=== PATIENT | female | born 1950 | race Caucasian/White ===

== ENCOUNTER → 2017-10-12 08:55 | Outpatient (REF) | payer MEDICARE, MEDICAID, SELFPAY ==
[2017-10-12 13:55] LABS: Basophils % 0.3 % (0.1-2.0); Eosinophils # 0.3 K/mm3 (0.0-0.4); Eosinophils % 3.3 % (0.1-12.0); Hematocrit 33.7 % (37.0-47.0); Hemoglobin 10.9 g/dL (12.2-16.2); Lymphocytes # 2.8 K/mm3 (0.7-4.5); Lymphocytes % 33.1 K/mm3 (10-50); Mean Corpuscular HGB Conc 32.2 g/dL (31.8-35.4); Mean Corpuscular Hemoglobin 28.9 pg (27.0-31.2); Mean Corpuscular Volume 89.7 fl (81-99); Mean Platelet Volume 9.5 fl (7.4-10.4); Monocytes # 0.3 K/mm3 (0.1-1.0); Monocytes % 4.1 % (1.7-9.3); Neutrophils % 59.3 % (37.0-80.0); Platelet Count 178 K/mm3 (142-424); Red Blood Count 3.76 M/mm3 (4.20-5.40); Red Cell Distribution Width 13.3 % (11.5-17.5); White Blood Count 8.4 K/mm3 (4.8-10.8)
[2017-10-12 14:00] LABS: Hemoglobin A1C 7.8 % (0.0-7.0)
[2017-10-12 14:05] LABS: Alanine Aminotransferase 23 U/L (12-78); Albumin/Globulin Ratio 1.1 (1.1-1.8); Alkaline Phosphatase 133 U/L (46-116); Anion Gap 17.4 mEq/L (5-15); Aspartate Amino Transferase 33 U/L (15-37); Bilirubin,Total 0.2 mg/dL (0.2-1.0); Blood Urea Nitrogen 22 mg/dL (7-18); Calcium 8.7 mg/dL (8.5-10.1); Carbon Dioxide 25 mmol/L (21.0-32.0); Chloride 99 mmol/L (98-107); Chol/HDL Ratio 2.8 (1-3.5); Cholesterol 124 mg/dL (140-200); Creatinine,Serum 1.48 mg/dL (0.55-1.02); Estimated Glomerular Filt Rate 35 ml/min (>60); GFR (African American) 42 ML/MIN (>60); Globulin 2.7 gm/dl (1.3-3.2); Glucose 167 mg/dL (74-106); HDL Cholesterol 45 mg/dL (29-89); LDL Cholesterol 58 mg/dL (0-130); Potassium 4.4 mmoL/L (3.5-5.1); Sodium 137 mmol/L (136-145); Total Protein,Serum 5.7 gm/dL (6.4-8.2); Triglycerides 104 mg/dL (30-200); VLDL Cholesterol 21 mg/dL (0-40)
== END ==
LOC: LAB.CARL 08:55
PROVIDERS: Visit Provider Nurse Practitioner Family
DX: I10 Essential (primary) hypertension (principal); E78.5 Hyperlipidemia, unspecified; E11.9 Type 2 diabetes mellitus without complications; E03.9 Hypothyroidism, unspecified
CPT/HCPCS: 80053; 80061; 83036; 84443; 85025

== ENCOUNTER → 2017-11-29 10:26 | Outpatient (REF) | payer MEDICARE, MEDICAID, SELFPAY ==
[2017-11-29 10:30] LABS: Microscopic, Urine URINE MICROSCOPIC (MICROSCOPIC)
[2017-11-29 13:21] LABS: Basophils % 0.4 % (0.1-2.0); Eosinophils # 0.3 K/mm3 (0.0-0.4); Eosinophils % 2.7 % (0.1-12.0); Hematocrit 34.5 % (37.0-47.0); Hemoglobin 11.3 g/dL (12.2-16.2); Lymphocytes # 3.8 K/mm3 (0.7-4.5); Mean Corpuscular HGB Conc 32.7 g/dL (31.8-35.4); Mean Corpuscular Hemoglobin 29.3 pg (27.0-31.2); Mean Corpuscular Volume 89.7 fl (81-99); Mean Platelet Volume 9.1 fl (7.4-10.4); Monocytes # 0.5 K/mm3 (0.1-1.0); Monocytes % 4.6 % (1.7-9.3); Neutrophils # 5.5 K/mm3 (1.8-7.8); Neutrophils % 54.3 % (37.0-80.0); Platelet Count 218 K/mm3 (142-424); Red Blood Count 3.85 M/mm3 (4.20-5.40); Red Cell Distribution Width 13.1 % (11.5-17.5); White Blood Count 10.1 K/mm3 (4.8-10.8)
[2017-11-29 13:54] LABS: Albumin Level 3.1 gm/dL (3.4-5.0); Anion Gap 19.8 mEq/L (5-15); Blood Urea Nitrogen 24 mg/dL (7-18); Carbon Dioxide 22 mmol/L (21.0-32.0); Chloride 100 mmol/L (98-107); Creatinine,Serum 2.06 mg/dL (0.55-1.02); Estimated Glomerular Filt Rate 24 ml/min (>60); GFR (African American) 29 ML/MIN (>60); Glucose 125 mg/dL (74-106); Phosphorous 3.8 mg/dL (2.4-4.9); Potassium 4.8 mmoL/L (3.5-5.1); Sodium 137 mmol/L (136-145)
[2017-11-29 14:04] LABS: Appearance,Urine CLOUDY (Clear); Bilirubin,Urine Negative (Negative); Blood, Urine Negative (Negative); Color,Urine YELLOW (Yellow); Glucose,Urine (UA) Negative (Negative); Ketones,Urine Negative (Negative); Leukocyte Esterase,Urine Negative (Negative); Nitrate,Urine Negative (Negative); PH,Urine 5.5 (5.0-8.5); Protein,Urine Negative (Negative); Urobilinogen,Urine 0.2 EU/dl (0.2)
[2017-11-29 14:22] LABS: WBC,Urine Occasional #/hpf (0-3)
[2017-11-29 14:24] LABS: Bacteria,Urine 3+ /lpf
[2017-11-29 14:34] LABS: Creatinine,Urine Random 119 mg/dL (20-320)
== END ==
LOC: LAB.CARL 10:26
PROVIDERS: Visit Provider Internal Medicine Nephrology
DX: N18.9 Chronic kidney disease, unspecified (principal); R82.90 Unspecified abnormal findings in urine
CPT/HCPCS: 80069; 81001; 82570; 84155; 85025; 87086; 87088; 87186

== ENCOUNTER → 2017-12-27 09:33 | Outpatient (REF) | payer MEDICARE, MEDICAID, SELFPAY ==
[2017-12-27 13:19] LABS: Basophils % 0.2 % (0.1-2.0); Eosinophils # 0.2 K/mm3 (0.0-0.4); Eosinophils % 3.8 % (0.1-12.0); Hematocrit 33.8 % (37.0-47.0); Hemoglobin 10.6 g/dL (12.2-16.2); Lymphocytes # 1.6 K/mm3 (0.7-4.5); Lymphocytes % 29.7 K/mm3 (10-50); Mean Corpuscular HGB Conc 31.5 g/dL (31.8-35.4); Mean Corpuscular Hemoglobin 28.9 pg (27.0-31.2); Mean Corpuscular Volume 91.8 fl (81-99); Mean Platelet Volume 8.4 fl (7.4-10.4); Monocytes # 0.3 K/mm3 (0.1-1.0); Monocytes % 5.2 % (1.7-9.3); Neutrophils # 3.3 K/mm3 (1.8-7.8); Neutrophils % 61.2 % (37.0-80.0); Platelet Count 180 K/mm3 (142-424); Red Blood Count 3.68 M/mm3 (4.20-5.40); Red Cell Distribution Width 13.7 % (11.5-17.5); White Blood Count 5.4 K/mm3 (4.8-10.8)
[2017-12-27 13:33] LABS: Alanine Aminotransferase 16 U/L (12-78); Albumin Level 2.8 gm/dL (3.4-5.0); Albumin/Globulin Ratio 1.1 (1.1-1.8); Alkaline Phosphatase 91 U/L (46-116); Anion Gap 14.2 mEq/L (5-15); Aspartate Amino Transferase 21 U/L (15-37); Bilirubin,Total 0.2 mg/dL (0.2-1.0); Blood Urea Nitrogen 9 mg/dL (7-18); Calcium 8.5 mg/dL (8.5-10.1); Carbon Dioxide 25 mmol/L (21.0-32.0); Chloride 108 mmol/L (98-107); Creatinine,Serum 0.83 mg/dL (0.55-1.02); Estimated Glomerular Filt Rate 68 ml/min (>60); GFR (African American) 83 ML/MIN (>60); Globulin 2.6 gm/dl (1.3-3.2); Glucose 108 mg/dL (74-106); Potassium 4.2 mmoL/L (3.5-5.1); Sodium 143 mmol/L (136-145); Total Protein,Serum 5.4 gm/dL (6.4-8.2)
== END ==
LOC: LAB.CARL 09:33
PROVIDERS: Visit Provider Nurse Practitioner Family
DX: R94.4 Abnormal results of kidney function studies (principal)
CPT/HCPCS: 80053; 85025

== ENCOUNTER → 2017-12-28 12:00 | Outpatient (REF) | payer MEDICARE, MEDICAID, SELFPAY ==
[2017-12-29 12:02] LABS: Adenovirus F 40/41, stool Not Detected (NotDetected); Astrovirus Not Detected (NotDetected); Campylobacter Not Detected (NotDetected); Clostridium Difficile A/B, PCR Not Detected (NotDetected); Cryptosporidium Not Detected (NotDetected); Cyclospora Cayetanesis Not Detected (NotDetected); Entamoeba histolytica Not Detected (NotDetected); Enteroaggregative E coli Not Detected (NotDetected); Enteropathogenic E coli Not Detected (NotDetected); Enterotoxigenic E coli Not Detected (NotDetected); Giardia lamblia Not Detected (NotDetected); Norovirus Not Detected (NotDetected); Plesimonas Shigalloides, PCR Not Detected (NotDetected); Rotavirus A Not Detected (NotDetected); Salmonella, PCR Not Detected (NotDetected); Sapovirus Not Detected (NotDetected); Shiga-like toxin E coli Not Detected (NotDetected); Shigella Enterovasive E coli Not Detected (NotDetected); Vibrio Cholerae Not Detected (NotDetected); Vibrio, PCR Not Detected (NotDetected); Yersinia Entercolitica, PCR Not Detected (NotDetected)
[2017-12-29 15:37] LABS: Occult Blood,Stool Negative (Negative)
== END ==
LOC: LAB.CARL 12:00
PROVIDERS: Visit Provider Nurse Practitioner Family
DX: R19.7 Diarrhea, unspecified (principal)
CPT/HCPCS: 82272; 87045; 87177; 87507; G0328

== ENCOUNTER → 2018-01-31 09:20 | Outpatient (REF) | payer MEDICARE, MEDICAID, SELFPAY ==
[2018-01-31 09:30] LABS: Microscopic, Urine URINE MICROSCOPIC (MICROSCOPIC)
[2018-01-31 13:36] LABS: Alanine Aminotransferase 49 U/L (12-78); Albumin Level 3.3 gm/dL (3.4-5.0); Alkaline Phosphatase 157 U/L (46-116); Aspartate Amino Transferase 85 U/L (15-37); Bilirubin,Total 0.3 mg/dL (0.2-1.0); Blood Urea Nitrogen 16 mg/dL (7-18); Calcium 9.6 mg/dL (8.5-10.1); Carbon Dioxide 26 mmol/L (21.0-32.0); Chloride 103 mmol/L (98-107); Estimated Glomerular Filt Rate 41 ml/min (>60); GFR (African American) 49 ML/MIN (>60); Globulin 3.4 gm/dl (1.3-3.2); Glucose 171 mg/dL (74-106); Sodium 142 mmol/L (136-145); Total Protein,Serum 6.7 gm/dL (6.4-8.2)
[2018-01-31 13:38] LABS: Creatine Kinase 19 U/L (26-192); Phosphorous 4.8 mg/dL (2.4-4.9)
[2018-01-31 13:40] LABS: Appearance,Urine CLEAR (Clear); Bilirubin,Urine Negative (Negative); Blood, Urine Negative (Negative); Color,Urine YELLOW (Yellow); Glucose,Urine (UA) Negative (Negative); Ketones,Urine Negative (Negative); Leukocyte Esterase,Urine TRACE (Negative); Nitrate,Urine POSITIVE (Negative); PH,Urine 5.5 (5.0-8.5); Protein,Urine Negative (Negative); Specific Gravity, Urine >= 1.030 (1.005-1.030); Urobilinogen,Urine 0.2 EU/dl (0.2)
[2018-01-31 13:44] LABS: Hemoglobin A1C 6.5 % (0.0-7.0)
[2018-01-31 13:59] LABS: RBC,Urine Occasional #/hpf (0-3)
[2018-01-31 14:00] LABS: Bacteria,Urine 4+ /lpf
[2018-01-31 15:33] LABS: Creatinine,Urine Random 228 mg/dL (20-320)
[2018-02-02 12:54] LABS: Antinuclear Antibodies, IFA Negative (.)
== END ==
LOC: LAB 09:20
PROVIDERS: Nurse Practitioner Family; Visit Provider Internal Medicine Nephrology
DX: N17.9 Acute kidney failure, unspecified (principal)
CPT/HCPCS: 80053; 81001; 82550; 82570; 83036; 84100; 84155; 86038; 87086; 87088; 87186; 87205

== ENCOUNTER → 2018-06-27 08:58 | Outpatient (REF) | payer MEDICARE, MEDICAID, SELFPAY ==
[2018-06-27 09:07] LABS: Microscopic, Urine URINE MICROSCOPIC (MICROSCOPIC)
[2018-06-27 14:06] LABS: Appearance,Urine CLEAR (Clear); Bilirubin,Urine Negative (Negative); Blood, Urine Negative (Negative); Color,Urine YELLOW (Yellow); Glucose,Urine (UA) Negative (Negative); Ketones,Urine Negative (Negative); Leukocyte Esterase,Urine Negative (Negative); Nitrate,Urine Negative (Negative); Protein,Urine Negative (Negative); Specific Gravity, Urine <= 1.005 (1.005-1.030); Urobilinogen,Urine 0.2 EU/dl (0.2)
[2018-06-27 14:11] LABS: Albumin Level 3.2 gm/dL (3.4-5.0); Anion Gap 15.3 mEq/L (5-15); Blood Urea Nitrogen 12 mg/dL (7-18); Calcium 8.9 mg/dL (8.5-10.1); Carbon Dioxide 27 mmol/L (21.0-32.0); Chloride 105 mmol/L (98-107); Creatinine,Serum 1.17 mg/dL (0.55-1.02); Estimated Glomerular Filt Rate 46 ml/min (>60); GFR (African American) 55 ML/MIN (>60); Glucose 151 mg/dL (74-106); Phosphorous 4.4 mg/dL (2.4-4.9); Potassium 4.3 mmoL/L (3.5-5.1); Sodium 143 mmol/L (136-145)
[2018-06-27 14:14] LABS: Basophils % 0.2 % (0.1-2.0); Eosinophils # 0.1 K/mm3 (0.0-0.4); Eosinophils % 1.7 % (0.1-12.0); Hematocrit 37.7 % (37.0-47.0); Hemoglobin 11.9 g/dL (12.2-16.2); Lymphocytes # 2.6 K/mm3 (0.7-4.5); Lymphocytes % 41.7 K/mm3 (10-50); Mean Corpuscular HGB Conc 31.7 g/dL (31.8-35.4); Mean Corpuscular Hemoglobin 28.7 pg (27.0-31.2); Mean Corpuscular Volume 90.7 fl (81-99); Mean Platelet Volume 8.8 fl (7.4-10.4); Monocytes # 0.3 K/mm3 (0.1-1.0); Monocytes % 4.9 % (1.7-9.3); Neutrophils # 3.2 K/mm3 (1.8-7.8); Neutrophils % 51.6 % (37.0-80.0); Platelet Count 171 K/mm3 (142-424); Red Blood Count 4.15 M/mm3 (4.20-5.40); Red Cell Distribution Width 13.7 % (11.5-17.5); White Blood Count 6.2 K/mm3 (4.8-10.8)
[2018-06-27 14:26] LABS: Creatinine,Urine Random 45 mg/dL (20-320)
[2018-06-27 14:32] LABS: Total Protein,Urine Random < 6.0 mg/dL (0.0-11.9)
[2018-06-27 16:41] LABS: Bacteria,Urine Trace /lpf
[2018-06-29 18:41] LABS: Parathyroid Hormone Intact 36 pg/mL (15-65); Vitamin D 25 Hydroxy 62.2 ng/mL (30.0-100.0)
== END ==
LOC: LAB.CARL 08:58
PROVIDERS: Visit Provider Family Medicine
DX: N17.9 Acute kidney failure, unspecified (principal)
CPT/HCPCS: 80069; 81001; 82570; 82652; 83970; 84155; 85025

== ENCOUNTER → 2018-08-16 08:53 | Outpatient (CLI) | payer MEDICARE, MEDICAID, SELFPAY ==
--- NOTE | 2018-08-16 09:03 | XR_ITS ---
XR knee RT 4V HISTORY: Right knee pain ITS.REASON: 4 views weightbearing ORDERING PHYSICIAN: Zi Lund MD PATIENT AGE: 68 years COMPARISON: 03/04/2017 FINDINGS: There are severe osteoarthritic changes of the medial compartment with moderate osteoarthritic changes of the patellofemoral joint. Osteophytes are present at the patellofemoral joint and at the intercondylar region. A calcific density is present along the medial aspect of the tibia on the sunrise view measuring 6 mm and may be due to a loose body. There is a calcification at the intercondylar region of the distal femur measuring 9 mm and could be due to a loose body or an osteophyte. No other significant anomalies are evident. IMPRESSION: Severe osteoarthritis of the medial compartment. This has progressed compared to the previous exam. Osteophytes versus loose bodies at the intercondylar region and along the medial aspect of the patella
== END ==
PROVIDERS: PCP Nurse Practitioner Family; Visit Provider Orthopaedic Surgery
DX: M17.11 Unilateral primary osteoarthritis, right knee (principal)
CPT/HCPCS: 73564

== ENCOUNTER → 2018-11-12 13:15 | Outpatient (CLI) | payer MEDICARE, MEDICAID, SELFPAY | PROVIDERS: PCP Nurse Practitioner Family; Visit Provider Urology | DX: R42 Dizziness and giddiness (principal) | CPT/HCPCS: 93270 ==

== ENCOUNTER → 2018-11-21 10:00 | Outpatient (CLI) | payer MEDICARE, MEDICAID, SELFPAY ==
--- NOTE | 2018-11-21 10:03 | CI_ITS ---
Cerebrovascular Exam Indications: 780.4 Dizziness and giddiness. IMPRESSIONS 1. The bilateral vertebral arteries are patent with normal antegrade flow. 2. Study suggests less than 20% stenosis involving the right internal carotid artery and bxy24-78% stenosis left internal carotid artery. 3. Tortuous carotid arteries seen on left ICA History: Risk factors: Hypertension. Diabetes mellitus. Hyperlipidemia. Carotid duplex study. Complete study and Doppler flow study including spectral analysis, color and nance scale imaging. Location: Vascular laboratory. Patient status: Outpatient. Tables: Arterial flow: + +--------+--------+ Location V sys V ed + +--------+--------+ Right CCA - proximal 64.4cm/s 15.7cm/s + +--------+--------+ Right CCA - distal 50.3cm/s 16.5cm/s + +--------+--------+ Right ECA 105cm/s -------- + +--------+--------+ Right ICA - proximal 50.3cm/s 18.9cm/s + +--------+--------+ Right ICA - mid 43.2cm/s 19.6cm/s + +--------+--------+ Right ICA - distal 55cm/s 18.9cm/s + +--------+--------+ Right vertebral 35.4cm/s -------- + +--------+--------+ Left CCA - proximal 64.4cm/s 14.1cm/s + +--------+--------+ Left CCA - distal 47.9cm/s 11cm/s + +--------+--------+ Left ECA 87.2cm/s -------- + +--------+--------+ Left ICA - proximal 44cm/s 15.7cm/s + +--------+--------+ Left ICA - mid 44cm/s 18.1cm/s + +--------+--------+ Left ICA - distal 141cm/s 33.8cm/s + +--------+--------+ Left vertebral 40.1cm/s -------- + +--------+--------+ Velocity ratios: + + + + + + Right, V sys Right, V ed Left, V sys Left, V ed + + + + + + Max ICA/dist CCA 1.09 1.19 2.94 3.07 + + + + + + (Report amended ) Electronically signed by: Shad Gallagher [id number]
== END ==
PROVIDERS: PCP Nurse Practitioner Family; Visit Provider Urology
DX: R42 Dizziness and giddiness (principal)
CPT/HCPCS: 93880

== ENCOUNTER → 2018-11-27 11:52 | Outpatient (CLI) | payer MEDICARE, MEDICAID, SELFPAY ==
[2018-11-27 11:57] LABS: Microscopic, Urine URINE MICROSCOPIC (MICROSCOPIC)
[2018-11-27 14:09] LABS: Appearance,Urine CLEAR (Clear); Bilirubin,Urine Negative (Negative); Blood, Urine Negative (Negative); Color,Urine YELLOW (Yellow); Glucose,Urine (UA) Negative (Negative); Ketones,Urine Negative (Negative); Leukocyte Esterase,Urine Negative (Negative); Nitrate,Urine Negative (Negative); Protein,Urine Negative (Negative); Specific Gravity, Urine <= 1.005 (1.005-1.030); Urobilinogen,Urine 0.2 EU/dl (0.2)
[2018-11-27 14:18] LABS: Bacteria,Urine Trace /lpf; WBC,Urine Occasional #/hpf (0-3)
== END ==
PROVIDERS: PCP Nurse Practitioner Family; Visit Provider Nurse Practitioner Family
DX: R30.0 Dysuria (principal)
CPT/HCPCS: 81001; 87086

== ENCOUNTER → 2018-12-04 11:54 | Outpatient (CLI) | payer MEDICARE, MEDICAID, SELFPAY ==
[2018-12-04 12:07] LABS: Microscopic, Urine URINE MICROSCOPIC (MICROSCOPIC)
[2018-12-04 14:12] LABS: Basophils # 0.1 K/mm3 (0-0.2); Basophils % 0.6 % (0.1-2.0); Eosinophils # 0.2 K/mm3 (0.0-0.4); Eosinophils % 1.6 % (0.1-12.0); Hematocrit 40.6 % (37.0-47.0); Hemoglobin 13.4 g/dL (12.2-16.2); Lymphocytes # 3.6 K/mm3 (0.7-4.5); Lymphocytes % 39.2 % (10-50); Mean Corpuscular Hemoglobin 29.7 pg (27.0-31.2); Mean Platelet Volume 8.6 fl (7.4-10.4); Monocytes # 0.4 K/mm3 (0.1-1.0); Monocytes % 4.7 % (1.7-9.3); Neutrophils % 53.9 % (37.0-80.0); Platelet Count 223 K/mm3 (142-424); Red Blood Count 4.51 M/mm3 (4.20-5.40); Red Cell Distribution Width 13.4 % (11.5-17.5); White Blood Count 9.2 K/mm3 (4.8-10.8)
[2018-12-04 14:30] LABS: Alanine Aminotransferase 36 U/L (12-78); Albumin Level 3.5 gm/dL (3.4-5.0); Albumin/Globulin Ratio 0.9 (1.1-1.8); Alkaline Phosphatase 124 U/L (46-116); Anion Gap 13.9 mEq/L (5-15); Aspartate Amino Transferase 31 U/L (15-37); Bilirubin,Total 0.5 mg/dL (0.2-1.0); Blood Urea Nitrogen 17 mg/dL (7-18); Calcium 9.4 mg/dL (8.5-10.1); Carbon Dioxide 28 mmol/L (21.0-32.0); Chloride 102 mmol/L (98-107); Chol/HDL Ratio 3.1 (1-3.5); Cholesterol 175 mg/dL (140-200); Creatinine,Serum 1.35 mg/dL (0.55-1.02); Estimated Glomerular Filt Rate 39 ml/min (>60); GFR (African American) 47 ML/MIN (>60); Globulin 3.7 gm/dl (1.3-3.2); Glucose 131 mg/dL (74-106); HDL Cholesterol 57 mg/dL (29-89); LDL Cholesterol 100 mg/dL (0-130); Potassium 4.9 mmoL/L (3.5-5.1); Sodium 139 mmol/L (136-145); Total Protein,Serum 7.2 gm/dL (6.4-8.2); Triglycerides 92 mg/dL (30-200); VLDL Cholesterol 18 mg/dL (0-40)
[2018-12-04 14:42] LABS: Appearance,Urine SL CLOUDY (Clear); Bilirubin,Urine Negative (Negative); Blood, Urine Negative (Negative); Color,Urine YELLOW (Yellow); Glucose,Urine (UA) Negative (Negative); Ketones,Urine Negative (Negative); Leukocyte Esterase,Urine Negative (Negative); Nitrate,Urine Negative (Negative); Protein,Urine Negative (Negative); Urobilinogen,Urine 0.2 EU/dl (0.2)
[2018-12-04 14:44] LABS: Ferritin 100 ng/mL (8-388)
[2018-12-04 14:59] LABS: WBC,Urine Occasional #/hpf (0-3)
[2018-12-04 15:00] LABS: Bacteria,Urine Trace /lpf
[2018-12-04 15:28] LABS: Hemoglobin A1C 7.7 % (0.0-7.0)
[2018-12-05 08:11] LABS: Vitamin D 25 Hydroxy 62.4 ng/mL (30.0-100.0)
[2018-12-05 08:26] LABS: Iron 88 ug/dL (27-139); UIBC 260 ug/dL (118-369)
[2018-12-05 12:52] LABS: Iron Saturation 25 % (15-55)
[2018-12-05 15:14] LABS: Albumin 3.6 g/dL (2.9-4.4); Alpha-1-Globulin 0.3 g/dL (0.0-0.4); Alpha-2-Globulin 0.8 g/dL (0.4-1.0); Gamma Globulin 0.9 g/dL (0.4-1.8); Protein, Total 6.9 g/dL (6.0-8.5)
[2018-12-06 16:19] LABS: Immunoglobulin A, Qn 454 mg/dL (87-352); Immunoglobulin G, Qn 793 mg/dL (700-1600)
[2018-12-07 12:33] LABS: Immunoglobulin M, Qn 74 mg/dL (26-217)
[2018-12-07 16:19] LABS: Alpha-1-Globulin, U 11.5 % (.); Alpha-2-Globulin, U 17.2 % (.); Beta Globulin, U 29.1 % (.); Gamma Globulin, U 22.2 % (.); M-Spike, % Not Observed % (Not Observed); Protein,Total,Urine 6.9 mg/dL (Not Estab.)
== END ==
PROVIDERS: PCP Nurse Practitioner Family; Visit Provider Nurse Practitioner Family
DX: E08.41 Diabetes mellitus due to underlying condition with diabetic mononeuropathy; N18.3 Chronic kidney disease, stage 3 (moderate); E55.9 Vitamin D deficiency, unspecified; I12.9 Hypertensive chronic kidney disease with stage 1 through stage 4 chronic kidney disease, or unspecified chronic kidney disease
CPT/HCPCS: 36415; 80053; 80061; 81001; 82652; 82728; 82784; 83036; 83540; 83550; 84155; 84156; 84165; 84166; 85025; 86334; 86335

== ENCOUNTER 2019-02-04 20:07 | Observation (INO) ==
[2019-02-04 20:22] LABS: Basophils % 0.3 % (0.1-2.0); Eosinophils # 0.1 K/mm3 (0.0-0.4); Eosinophils % 1.9 % (0.1-12.0); Hematocrit 38.9 % (37.0-47.0); Hemoglobin 12.9 g/dL (12.2-16.2); Lymphocytes # 2.9 K/mm3 (0.7-4.5); Lymphocytes % 37.9 % (10-50); Mean Corpuscular HGB Conc 33.3 g/dL (31.8-35.4); Mean Corpuscular Hemoglobin 29.6 pg (27.0-31.2); Mean Corpuscular Volume 88.8 fl (81-99); Mean Platelet Volume 8.6 fl (7.4-10.4); Monocytes # 0.3 K/mm3 (0.1-1.0); Monocytes % 4.1 % (1.7-9.3); Neutrophils # 4.3 K/mm3 (1.8-7.8); Neutrophils % 55.8 % (37.0-80.0); Platelet Count 186 K/mm3 (142-424); Red Blood Count 4.38 M/mm3 (4.20-5.40); Red Cell Distribution Width 13.3 % (11.5-17.5); White Blood Count 7.7 K/mm3 (4.8-10.8)
[2019-02-04 20:40] LABS: Anion Gap 12.9 mEq/L (5-15); Blood Urea Nitrogen 14 mg/dL (7-18); Calcium 9.1 mg/dL (8.5-10.1); Carbon Dioxide 25 mmol/L (21.0-32.0); Chloride 98 mmol/L (98-107); Glucose 344 mg/dL (74-106); Potassium 3.9 mmoL/L (3.5-5.1); Sodium 132 mmol/L (136-145)
--- NOTE | 2019-02-04 21:17 | Emergency Department Note ---
ED Disposition Clinical Impression: Tobacco abuse, Obesity (BMI 30-39.9), Renal insufficiency, Hyponatremia Chest pain Qualifiers: Chest pain type: precordial pain Qualified Code(s): R07.2 - Precordial pain Diabetes mellitus with hyperglycemia Qualifiers: Diabetes mellitus type: type 1 Qualified Code(s): E10.65 - Type 1 diabetes mellitus with hyperglycemia COPD (chronic obstructive pulmonary disease) Qualifiers: COPD type: unspecified COPD Qualified Code(s): J44.9 - Chronic obstructive pulmonary disease, unspecified Disposition: Admitted as Observation Condition on Discharge: Good Referrals: Tonya Freeman APRN [Primary Care Provider] - - Critical Care Critical Care Time: No Attestation: On 02/04/19, the high probability of a clinically significant, sudden or life threatening deterioration of the following system(s) required my full and direct attention, intervention and personal management. The time I documented below is in addition to time spent performing reported procedures but includes the following listed in this critical care notation. Medical Decision Making - Medical Records Medical records reviewed: Yes: I reviewed the patient's medical records. - Mervin Inquiry Pt receiving controlled substance: No Vital Signs: 02/04/19 20:10 Temperature 98.0 F Temperature Source Oral Pulse Rate [Right] 72 Respiratory Rate 16 Blood Pressure [Right Arm] 151/82 H Blood Pressure Mean [Right Arm] 105 02 Sat by Pulse Oximetry 96 Oxygen Delivery Method Room Air - Lab Data Lab results reviewed: Yes: I reviewed the patient's lab results. Lab Results 02/04/19 20:05: WBC 7.7, RBC 4.38, Hgb 12.9, Hct 38.9, MCV 88.8, MCH 29.6, MCHC 33.3, RDW 13.3, Plt Count 186, MPV 8.6, Neut % (Auto) 55.8, Lymph % (Auto) 37.9, [place] % (Auto) 4.1, Eos % (Auto) 1.9, Baso % (Auto) 0.3, Neut # (Auto) 4.3, Lymph # (Auto) 2.9, [place] # (Auto) 0.3, Eos # (Auto) 0.1, Baso # (Auto) 0.0 02/04/19 20:05: Sodium 132 L, Potassium 3.9, Chloride 98, Carbon Dioxide 25, Anion Gap 12.9, BUN 14, Creatinine 1.31 H, Estimated Creat Clear 65, Estimated GFR 40 L, Est GFR ( Amer) 49 L, Glucose 344 H, Calcium 9.1, Troponin I < 0.02 Result diagrams: 02/04/19 20:05 02/04/19 20:05 Orders (Tests/Meds): ORDERS Category Date Time Status CT abdomen pelvis wo con Stat Cat Scan 02/04/19 20:26 Taken Chest XR 2 view (NOT portable) [XR chest 2V] Stat Exams 02/04/19 20:09 Taken - Radiology Data #1 Image(s): Chest Image Reviewed: Yes I reviewed the patient's radiology image Preliminary Findings: Normal/NAD - CT Data CT Scan: Abdomen, Pelvis Time Received: 21:[address] Reviewed: Yes: I have viewed the radiologist's interpretation Preliminary Findings: Normal/NAD - ECG Data Tracing #1 Normal Sinus Rhythm: Yes Ischemic changes: non-specific ST-T wave changes - Physician Consults Physician Consulted: graciela Reason -: Admission Chest Pain HPI - General Chief Complaint: Chest Pain Stated Complaint: chest pain Time Seen by Provider: 02/04/19 20:20 Mode of Arrival: EMS Source of Information: Patient, EMS, Medical Record Limitations: No Limitations Description of Symptoms (Recalled from ER Triage Doc. by RN): Pt states she had chest pain about 9 AM today lasing about 30 minutes and now feels week - History of Present Illness HPI narrative: chest pain episode this am which was new and lasted 30 minute and occ pain after this - she had cath no stents in 2016 complaint: chest pain indicative of cardiac Onset (ago): hour(s) Duration: now resolved Activity at onset: during rest Pain location: left chest Severity: severe Quality: tightness Risk Factors for CAD: Hypertension, Family Hx of CAD, Diabetes, Smoking Treatments prior to or on arrival for Cardiac Chest Pain: none Contraindication for Aspirin: Adverse reaction to drug - NICOLAS Score for Non-Stemi Age of Patient: 60-69 years old Heart Rate: 70-89 bpm Systolic Blood Pressure: 140-159 mmHg Serum Creatinine: 1.20-1.59 mg/dl CHF Kill[place] Class: I-No CHF Other Risk Factors: None Non-Stemi Risk Score: 101 - Related Data Prior Cardiac Testing/Procedures: Echocardiogram, Cardiac Angiogram On Oral Contraceptives: No Home Medications Medication Instructions Recorded Confirmed cetirizine 10 mg tablet 10 mg PO DAILY tab 01/01/18 02/04/19 fluticasone propionate 50 2 spray INTRANASAL DAILY g 01/01/18 02/04/19 mcg/actuation nasal spray,suspension gabapentin 600 mg tablet 1,200 mg PO BID tab 01/01/18 02/04/19 lisinopril 20 mg tablet 20 mg PO DAILY tab 01/01/18 02/04/19 metoclopramide 5 mg tablet 5 mg PO QID 01/01/18 02/04/19 montelukast 10 mg tablet 10 mg PO QHS 01/01/18 02/04/19 roflumilast 500 mcg tablet 500 mcg PO DAILY tab 01/01/18 02/04/19 ropinirole 4 mg tablet 4 mg PO DAILY tab 01/01/18 02/04/19 cholecalciferol (vitamin D3) 50,000 unit PO .every other week 01/02/18 02/04/19 50,000 unit tablet tab furosemide 20 mg tablet 20 mg PO DAILY tab 01/02/18 02/04/19 oxybutynin chloride ER 10 mg 10 mg PO DAILY tab 01/02/18 02/04/19 tablet,extended release 24 hr fluticasone furoate 100 1 inh INHALATION DAILY 11/12/18 02/04/19 mcg-vilanterol 25 mcg/dose inhalation powder insulin glargine (U- 100) 100 25 unit SQ HS ml 11/12/18 02/04/19 unit/mL subcutaneous solution metoprolol tartrate 25 mg tablet 25 mg PO BID tab 11/12/18 02/04/19 nadolol 120 mg tablet 120 mg PO DAILY 11/12/18 02/04/19 ranitidine 150 mg tablet 150 mg PO DAILY 11/12/18 02/04/19 Insulin NPH Hum/Reg Insulin Hm 15 unit SQ QID 02/04/19 02/04/19 [Novolin 70-30 100 Unit/ml Vial] Allergies Allergy/AdvReac Type Severity Reaction Status Date / Time acetaminophen [From Tylox] Allergy Verified 02/04/19 20:18 sitagliptin [From Januvia] Allergy Verified 02/04/19 20:18 oxycodone [From PERCOCET] AdvReac Unknown Verified 02/04/19 20:18 [facility] History - Hepatitis A Screen Drug use history?: No High risk sexual behaviors?: No History of sexually transmitted infection?: No Currently employed?: No Childcare worker?: No Do you have indoor plumbing?: Yes Do you have electricity?: Yes Attestation statement:: This patient has been screened for Hepatitis A risk factors. I have reviewed the patient's past medical history: Yes Medical History: Reports:: Asthma, Cancer, Chronic Obstructive Pulmonary Disease (COPD), Depression, Diabetes Mellitus Type 2, Hypertension, Palpitations, Renal Disease, Urinary Tract Infection Denies:: Internal Pacemaker, MRSA Other Medical History: Reports: Arthritis, Liver Disease, Other Comment: BUDDY Other Surgeries: Yes: No Previous Surgery. No: Pacemaker Comment: hysterectomy, CTR, cholecystectomy, bilateral mastectomy - Social History Smoking Status: Current every day smoker Tobacco Type: cigarettes # Packs/Day (cigarettes): 2 Alcohol Intake: never Alcohol Intake Frequency:: other Substance Use Type: denies use Occupational Status: unemployed, disabled - Psychiatric History Expresses thoughts of harming self/others: None Suicide Plan Description: No Plan Pschychiatric History:: Reports:: Depression Family Hx:: No significant family history ROS Obtained: Yes All systems reviewed & no additional complaints - Constitutional Constitutional: Denies fever(s) - Eyes Eyes: Denies change in vision - ENT Ears, Nose, Mouth, and Throat: Denies sore throat - Cardiovascular Cardiovascular: Reports chest pain, Reports dyspnea - Respiratory Respiratory: No cough - Gastrointestinal Gastrointestingal: Denies: abdominal pain - Genitourinary Female Genitourinary: Denies hematuria - Musculoskeletal Musculoskeletal: Denies joint swelling - Integumentary/Breasts Skin/Breast: Denies rash - Neurologic Neurologic: Denies seizure-like activity Physical Exam - General General appearance: alert, obese - Head Head exam: normocephalic - Eye Eye exam: Present: PERRL, EOMI. Absent: scleral icterus - ENT ENT exam: Present: mucous membranes dry - Neck Neck exam: Present: trachea midline - Respiratory Respiratory exam: Present: normal lung sounds bilaterally. Absent: respiratory distress - Cardiovascular Cardiovascular exam: Present: regular rate, systolic murmur, +S4 - Abdominal Exam Abdominal exam: Present: soft - Extremities Exam Extremities exam: Present: full ROM. Absent: calf tenderness - Neurological Exam Neurological exam: Present: alert, oriented X3, CN II-XII intact - Psychiatric Psychiatric exam: Present: normal affect - Skin Skin exam: Absent: rash
[2019-02-05 04:35] LABS: Basophils % 0.3 % (0.1-2.0); Eosinophils # 0.2 K/mm3 (0.0-0.4); Eosinophils % 1.6 % (0.1-12.0); Hematocrit 36.1 % (37.0-47.0); Hemoglobin 12.1 g/dL (12.2-16.2); Lymphocytes % 37.9 % (10-50); Mean Corpuscular HGB Conc 33.4 g/dL (31.8-35.4); Mean Corpuscular Hemoglobin 29.2 pg (27.0-31.2); Mean Corpuscular Volume 87.4 fl (81-99); Mean Platelet Volume 8.7 fl (7.4-10.4); Monocytes # 0.6 K/mm3 (0.1-1.0); Monocytes % 5.2 % (1.7-9.3); Neutrophils # 5.8 K/mm3 (1.8-7.8); Neutrophils % 54.9 % (37.0-80.0); Platelet Count 167 K/mm3 (142-424); Red Blood Count 4.13 M/mm3 (4.20-5.40); Red Cell Distribution Width 13.5 % (11.5-17.5); White Blood Count 10.6 K/mm3 (4.8-10.8)
[2019-02-05 04:42] LABS: Anion Gap 13.1 mEq/L (5-15); Calcium 9.4 mg/dL (8.5-10.1); Chol/HDL Ratio 3.4 (1-3.5); Potassium 4.1 mmoL/L (3.5-5.1)
--- NOTE | 2019-02-05 07:32 | History & Physical Report ---
*Admission Date: 02/04/19 *Chief complaint: Chest pain *History of present illness: 68-year-old female with history of diabetes, cigarette use since the age of 13, family history of stroke presented to the emergency department yesterday evening after experiencing a 20-minute episode of squeezing chest pain on the morning of admission. After 20 minutes patient's chest pain resolved. However the rest of the day she did not feel well. She admits to lightheadedness upon standing and a weak feeling in the shoulders whenever she would ambulate. Ultimately she presented to the emergency department. In the emergency department she was evaluated. First troponin was negative. Due to significant risk factors she was admitted for rule out of an MD and cardiology consultation. Patient has had previous cardiac catheterization by Dr. Bailon in 2016 [facility] History I have reviewed the patient's past medical history: Yes Medical History: Reports:: Asthma, Cancer, Chronic Obstructive Pulmonary Disease (COPD), Depression, Diabetes Mellitus Type 2, Hypertension, Palpitations, Renal Disease, Urinary Tract Infection Denies:: Internal Pacemaker, MRSA *Have you ever received a pneumonia vaccine?: Yes *Have you received a flu vaccine this season?: No Other Medical History: Reports: Arthritis, Liver Disease, Other Laterality Cases: Bilateral: Mastectomy Other Surgeries: Yes: No Previous Surgery, Cholecystectomy. No: Pacemaker Amputation: No Fractures: No - *Social History Educational Level: Attended College Smoking Status: Current every day smoker Tobacco Type: cigarettes # Packs/Day (cigarettes): 2 Alcohol Intake: never Alcohol Intake Frequency:: other Substance Use Type: denies use *Occupational Status:: unemployed, disabled *Travel in the last 8 weeks: None - Psychiatric History Expresses thoughts of harming self/others: None Suicide Plan Description: No Plan Pschychiatric History:: Reports:: Depression Family Hx:: No significant family history Review of Systems - Review of Systems Review of systems:: pertinent systems reviewed and negative unless documented below - *Cardiovascular Denies excessive sweating, Denies shortness of breath, Denies shortness of breath with activity - *Respiratory Reports wheezing, Denies chest congestion, Denies cough - *Gastrointestinal Denies nausea, Denies vomiting - *Neurologic Denies seizure-like activity Meds Home Medications Medication Instructions Recorded Confirmed Type cetirizine 10 mg tablet 10 mg PO DAILY tab 01/01/18 02/04/19 History fluticasone propionate 50 2 spray INTRANASAL DAILY g 01/01/18 02/04/19 History mcg/actuation nasal spray,suspension gabapentin 600 mg tablet 1,200 mg PO BID tab 01/01/18 02/04/19 History lisinopril 20 mg tablet 20 mg PO DAILY tab 01/01/18 02/04/19 History metoclopramide 5 mg tablet 5 mg PO QID 01/01/18 02/04/19 History montelukast 10 mg tablet 10 mg PO QHS 01/01/18 02/04/19 History roflumilast 500 mcg tablet 500 mcg PO DAILY tab 01/01/18 02/04/19 History ropinirole 4 mg tablet 4 mg PO DAILY tab 01/01/18 02/04/19 History cholecalciferol (vitamin D3) 50,000 unit PO .every other week 01/02/18 02/04/19 History 50,000 unit tablet tab furosemide 20 mg tablet 20 mg PO DAILY tab 01/02/18 02/04/19 History oxybutynin chloride ER 10 mg 10 mg PO DAILY tab 01/02/18 02/04/19 History tablet,extended release 24 hr fluticasone furoate 100 1 inh INHALATION DAILY 11/12/18 02/04/19 History mcg-vilanterol 25 mcg/dose inhalation powder insulin glargine (U- 100) 100 25 unit SQ HS ml 11/12/18 02/04/19 History unit/mL subcutaneous solution metoprolol tartrate 25 mg tablet 25 mg PO BID tab 11/12/18 02/04/19 History nadolol 120 mg tablet 120 mg PO DAILY 11/12/18 02/04/19 History ranitidine 150 mg tablet 150 mg PO DAILY 11/12/18 02/04/19 History Insulin NPH Hum/Reg Insulin Hm 15 unit SQ QID 02/04/19 02/04/19 History [Novolin 70-30 100 Unit/ml Vial] Allergies Allergy/AdvReac Type Severity Reaction Status Date / Time acetaminophen [From Tylox] Allergy Verified 02/04/19 20:18 sitagliptin [From Januvia] Allergy Verified 02/04/19 20:18 oxycodone [From PERCOCET] AdvReac Unknown Verified 02/04/19 20:18 Exam Vital signs and Labs for Last 24 Hours: Temp Pulse Resp BP Pulse Ox 98.2 F 61 20 110/50 L 94 L 02/05/19 04:00 02/05/19 04:00 02/05/19 04:00 02/05/19 04:00 02/05/19 04:00 Laboratory Results - last 24 hr 02/04/19 20:05: WBC 7.7, RBC 4.38, Hgb 12.9, Hct 38.9, MCV 88.8, MCH 29.6, MCHC 33.3, RDW 13.3, Plt Count 186, MPV 8.6, Neut % (Auto) 55.8, Lymph % (Auto) 37.9, [place] % (Auto) 4.1, Eos % (Auto) 1.9, Baso % (Auto) 0.3, Neut # (Auto) 4.3, Lymph # (Auto) 2.9, [place] # (Auto) 0.3, Eos # (Auto) 0.1, Baso # (Auto) 0.0 02/04/19 20:05: Sodium 132 L, Potassium 3.9, Chloride 98, Carbon Dioxide 25, Anion Gap 12.9, BUN 14, Creatinine 1.31 H, Estimated Creat Clear 65, Estimated GFR 40 L, Est GFR ( Amer) 49 L, Glucose 344 H, Calcium 9.1, Troponin I < 0.02 02/05/19 01:05: Troponin I < 0.02 02/05/19 04:10: Troponin I < 0.02 02/05/19 04:10: WBC 10.6 D, RBC 4.13 L, Hgb 12.1 L, Hct 36.1 L, MCV 87.4, MCH 29.2, MCHC 33.4, RDW 13.5, Plt Count 167, MPV 8.7, Neut % (Auto) 54.9, Lymph % (Auto) 37.9, [place] % (Auto) 5.2, Eos % (Auto) 1.6, Baso % (Auto) 0.3, Neut # (Auto) 5.8, Lymph # (Auto) 4.0, [place] # (Auto) 0.6, Eos # (Auto) 0.2, Baso # (Auto) 0.0 02/05/19 04:10: Sodium 136, Potassium 4.1, Chloride 100, Carbon Dioxide 27, Anion Gap 13.1, BUN 16, Creatinine 1.29 H, Estimated Creat Clear 66, Estimated GFR 41 L, Est GFR ( Amer) 50 L, Glucose 167 H D, Calcium 9.4, Magnesium 1.8, Triglycerides 104, Cholesterol 140, LDL Cholesterol 78, VLDL Cholesterol 21, HDL Cholesterol 41, Cholesterol/HDL Ratio 3.4 02/05/19 06:14: POC Glucose 193 H I & O for Last 24 hours: Intake & Output 02/02/19 02/03/19 02/04/19 02/05/19 11:59 11:59 11:59 11:59 Weight 223 lb 5.993 oz Narrative: Patient is awake and appears comfortable in bed. She is oriented to person, place, time. Oropharynx is moist. Neck is without lymphadenopathy or jugular venous distention. Lungs have expiratory wheezes bilaterally. Heart has a regular rate and rhythm. Abdomen is soft and nontender. Extremities have trace edema Assessment and Plan (1) Chest pain Current visit: Yes Status: Acute Qualifiers: Chest pain type: precordial pain Qualified Code(s): R07.2 - Precordial pain Category: Medical Code(s): R07.9 - Chest pain, unspecified (2) Diabetes mellitus with hyperglycemia Current visit: Yes Status: Acute Qualifiers: Diabetes mellitus type: type 1 Qualified Code(s): E10.65 - Type 1 diabetes mellitus with hyperglycemia Category: Medical Code(s): E11.65 - Type 2 diabetes mellitus with hyperglycemia (3) Hyponatremia Current visit: Yes Status: Acute Category: Medical Code(s): E87.1 - Hypo- osmolality and hyponatremia (4) Obesity (BMI 30-39.9) Current visit: Yes Status: Acute Category: Medical Code(s): E66.9 - Obesity, unspecified (5) COPD (chronic obstructive pulmonary disease) Current visit: Yes Status: Chronic Qualifiers: COPD type: unspecified COPD Qualified Code(s): J44.9 - Chronic obstructive pulmonary disease, unspecified Category: Medical Code(s): J44.9 - Chronic obstructive pulmonary disease, unspecified (6) Tobacco abuse Current visit: Yes Status: Chronic Category: Medical Code(s): Z72.0 - Tobacco use - Assessment and plan all Dx Assessment and Plan for all problems:: 1. Cardiology consultation this morning 2. Patient will be given home medications
--- NOTE | 2019-02-05 07:50 | Pharmacy Consult Notes ---
[facility] Pharmacy VTE Monitoring - Patient Demographics Admission date: 02/04/19 Report Date: 02/05/19 Time: 07:50 Allergies/Adverse Reactions: Patient Allergies acetaminophen [From Tylox] Allergy (Verified 02/04/19 20:18) sitagliptin [From Januvia] Allergy (Verified 02/04/19 20:18) oxycodone [From PERCOCET] Adverse Reaction (Unknown, Verified 02/04/19 20:18) Height: 1.6 m Weight: 101.321 kg Patient Problems: Current Active Problems (Updated 02/04/19 @ 21:59 by Hermelindo Banks MD) Diabetes mellitus with hyperglycemia (Acute) Chest pain (Acute) Obesity (BMI 30-39.9) (Acute) Renal insufficiency (Acute) Hyponatremia (Acute) Tobacco abuse (Chronic) COPD (chronic obstructive pulmonary disease) (Chronic) - VTE Risk Labs: VTE Related Lab Results Hgb 12.1 g/dL (12.2-16.2) L 02/05/19 04:10 Hct 36.1 % (37.0-47.0) L 02/05/19 04:10 Plt Count 167 K/mm3 (142-424) 02/05/19 04:10 BUN 16 mg/dL (7-18) 02/05/19 04:10 Creatinine 1.29 mg/dL (0.55-1.02) H 02/05/19 04:10 Estimated Creat Clear 66 mL/min (50-200) 02/05/19 04:10 Was VTE Risk Assessment Performed: Yes VTE Score: 2 VTE Risk Level: Very Low Risk - Prophylaxis VTE Prophylaxis Ordered?: Yes Types of VTE Prophylaxis: TEDS Knee High Location of Applied Device: Bilateral Lower Extremeties - VTE Diagnosis Confirmed Treatment or plan recommended: Continue Current Treatment
--- NOTE | 2019-02-05 08:42 | Consult Report ---
History of Present Illness Consult date: 02/05/19 Requesting physician: Rafael Roberson Consult reason: chest pain Chief complaint: chest/abdominal pain Additional Medical History:: 1. Cardiac cath, 08/2016, normal coronaries, normal LVEF and normal LVEDP 2. Tobacco use, since age 13. Currently 1-1/2 packs/day A. COPD 3. DM, on insulin 4. Hypertension A. Echo, 01/2019, preliminary shows Normal LVEF without significant valve disease. 5. Hyperlipidemia 6. Carotid artery stenosis A. Carotid ultrasound, 11/2018,1. The bilateral vertebral arteries are patent with normal antegrade flow. 2. Study suggests less than 20% stenosis involving the right internal carotid artery and [id number]% stenosis left internal carotid artery. 3. Tortuous carotid arteries seen on left ICA 7. BUDDY, refuses CPAP therapy 8. Cirrhosis of the liver by CT scan of the abdomen, 2017 and 2018 9. Status post cholecystectomy, appendectomy and hysterectomy (vaginal) 10. CKD, stage II with creatinine 1.29 with GFR 41, 01/2019 History of present illness: 68-year-old female with history of diabetes, cigarette use since the age of 13, family history of stroke presented to the emergency department yesterday evening after experiencing a 20-minute episode of squeezing chest pain on the morning of admission. After 20 minutes patient's chest pain resolved. However the rest of the day she did not feel well. She admits to lightheadedness upon standing and a weak feeling in the shoulders whenever she would ambulate. Ultimately she presented to the emergency department. In the emergency department she was evaluated. First troponin was negative. Due to significant risk factors she was admitted for rule out of an [place] and cardiology consultation. Patient has had previous cardiac catheterization by Dr. Bailon in [address] Roberson's Patient denies any recent nausea, vomiting or change in bowel movements. She denies any fever but does relate some chills recently. Patient relates that her urine has been foul-smelling recently. Troponins have returned normal x3 and EKG is sinus with nonspecific ST-T abnormalities. [facility] History Medical History: Reports:: Asthma, Cancer, Chronic Obstructive Pulmonary Disease (COPD), Depression, Diabetes Mellitus Type 2, Hypertension, Palpitations, Renal Disease, Urinary Tract Infection Denies:: Internal Pacemaker, MRSA *Have you ever received a pneumonia vaccine?: Yes *Have you received a flu vaccine this season?: No Other Medical History: Reports: Arthritis, Liver Disease, Other Laterality Cases: Bilateral: Mastectomy Other Surgeries: Yes: No Previous Surgery, Cholecystectomy. No: Pacemaker Amputation: No Fractures: No - *Social History Educational Level: Attended College Smoking Status: Current every day smoker Tobacco Type: cigarettes # Packs/Day (cigarettes): 2 Alcohol Intake: never Alcohol Intake Frequency:: other Substance Use Type: denies use *Occupational Status:: unemployed, disabled *Travel in the last 8 weeks: None - Psychiatric History Expresses thoughts of harming self/others: None Suicide Plan Description: No Plan Pschychiatric History:: Reports:: Depression Family Hx:: No significant family history Meds Home Medications Medication Instructions Recorded Confirmed Type cetirizine 10 mg tablet 10 mg PO DAILY tab 01/01/18 02/04/19 History fluticasone propionate 50 2 spray INTRANASAL DAILY g 01/01/18 02/04/19 History mcg/actuation nasal spray,suspension gabapentin 600 mg tablet 1,200 mg PO BID tab 01/01/18 02/04/19 History lisinopril 20 mg tablet 20 mg PO DAILY tab 01/01/18 02/04/19 History metoclopramide 5 mg tablet 5 mg PO QID 01/01/18 02/04/19 History montelukast 10 mg tablet 10 mg PO QHS 01/01/18 02/04/19 History roflumilast 500 mcg tablet 500 mcg PO DAILY tab 01/01/18 02/04/19 History ropinirole 4 mg tablet 4 mg PO HS tab 01/01/18 02/05/19 History cholecalciferol (vitamin D3) 50,000 unit PO .every other week 01/02/18 02/04/19 History 50,000 unit tablet tab furosemide 20 mg tablet 20 mg PO DAILY tab 01/02/18 02/04/19 History oxybutynin chloride ER 10 mg 10 mg PO DAILY tab 01/02/18 02/04/19 History tablet,extended release 24 hr fluticasone furoate 100 1 inh INHALATION DAILY 11/12/18 02/04/19 History mcg-vilanterol 25 mcg/dose inhalation powder insulin glargine (U- 100) 100 25 unit SQ HS ml 11/12/18 02/04/19 History unit/mL subcutaneous solution ranitidine 150 mg tablet 150 mg PO DAILY 11/12/18 02/04/19 History Insulin NPH Hum/Reg Insulin Hm 15 unit SQ QID 02/04/19 02/04/19 History [Novolin 70-30 100 Unit/ml Vial] Nadolol [Corgard] 20 mg PO DAILY 02/05/19 02/05/19 History Venlafaxine HCl [Venlafaxine HCl 75 mg PO DAILY 02/05/19 02/05/19 History ER] Allergies Allergy/AdvReac Type Severity Reaction Status Date / Time acetaminophen [From Tylox] Allergy Verified 02/04/19 20:18 sitagliptin [From Januvia] Allergy Verified 02/04/19 20:18 oxycodone [From PERCOCET] AdvReac Unknown Verified 02/04/19 20:18 Review of Systems - *Neurologic Denies seizure-like activity Exam Vital signs and Labs for Last 24 Hours: Temp Pulse Resp BP Pulse Ox 98.2 F 61 20 110/50 L 94 L 02/05/19 04:00 02/05/19 04:00 02/05/19 04:00 02/05/19 04:00 02/05/19 04:00 Laboratory Results - last 24 hr 02/04/19 20:05: WBC 7.7, RBC 4.38, Hgb 12.9, Hct 38.9, MCV 88.8, MCH 29.6, MCHC 33.3, RDW 13.3, Plt Count 186, MPV 8.6, Neut % (Auto) 55.8, Lymph % (Auto) 37.9, [place] % (Auto) 4.1, Eos % (Auto) 1.9, Baso % (Auto) 0.3, Neut # (Auto) 4.3, Lymph # (Auto) 2.9, [place] # (Auto) 0.3, Eos # (Auto) 0.1, Baso # (Auto) 0.0 02/04/19 20:05: Sodium 132 L, Potassium 3.9, Chloride 98, Carbon Dioxide 25, Anion Gap 12.9, BUN 14, Creatinine 1.31 H, Estimated Creat Clear 65, Estimated GFR 40 L, Est GFR ( Amer) 49 L, Glucose 344 H, Calcium 9.1, Troponin I < 0.02 02/05/19 01:05: Troponin I < 0.02 02/05/19 04:10: Troponin I < 0.02 02/05/19 04:10: WBC 10.6 D, RBC 4.13 L, Hgb 12.1 L, Hct 36.1 L, MCV 87.4, MCH 29.2, MCHC 33.4, RDW 13.5, Plt Count 167, MPV 8.7, Neut % (Auto) 54.9, Lymph % (Auto) 37.9, [place] % (Auto) 5.2, Eos % (Auto) 1.6, Baso % (Auto) 0.3, Neut # (Auto) 5.8, Lymph # (Auto) 4.0, [place] # (Auto) 0.6, Eos # (Auto) 0.2, Baso # (Auto) 0.0 02/05/19 04:10: Sodium 136, Potassium 4.1, Chloride 100, Carbon Dioxide 27, Anion Gap 13.1, BUN 16, Creatinine 1.29 H, Estimated Creat Clear 66, Estimated GFR 41 L, Est GFR ( Amer) 50 L, Glucose 167 H D, Calcium 9.4, Magnesium 1.8, Triglycerides 104, Cholesterol 140, LDL Cholesterol 78, VLDL Cholesterol 21, HDL Cholesterol 41, Cholesterol/HDL Ratio 3.4 02/05/19 06:14: POC Glucose 193 H I & O for Last 24 hours: Intake & Output 02/02/19 02/03/19 02/04/19 02/05/19 11:59 11:59 11:59 11:59 Weight 223 lb 5.993 oz Assessment and Plan (1) Chest pain Current visit: Yes Status: Acute Qualifiers: Chest pain type: precordial pain Qualified Code(s): R07.2 - Precordial pain Category: Medical Code(s): R07.9 - Chest pain, unspecified (2) Diabetes mellitus with hyperglycemia Current visit: Yes Status: Acute Qualifiers: Diabetes mellitus type: type 1 Qualified Code(s): E10.65 - Type 1 diabetes mellitus with hyperglycemia Category: Medical Code(s): E11.65 - Type 2 diabetes mellitus with hyperglycemia (3) Hyponatremia Current visit: Yes Status: Acute Category: Medical Code(s): E87.1 - Hypo- osmolality and hyponatremia (4) Obesity (BMI 30-39.9) Current visit: Yes Status: Acute Category: Medical Code(s): E66.9 - Obesity, unspecified (5) COPD (chronic obstructive pulmonary disease) Current visit: Yes Status: Chronic Qualifiers: COPD type: unspecified COPD Qualified Code(s): J44.9 - Chronic obstructive pulmonary disease, unspecified Category: Medical Code(s): J44.9 - Chronic obstructive pulmonary disease, unspecified (6) Tobacco abuse Current visit: Yes Status: Chronic Category: Medical Code(s): Z72.0 - Tobacco use (7) Renal insufficiency Current visit: Yes Status: Acute Category: Medical Code(s): N28.9 - Disorder of kidney and ureter, unspecified (8) Abdominal pain Current visit: No Status: Acute Qualifiers: Abdominal location: unspecified location Qualified Code(s): R10.9 - Unspecified abdominal pain Category: Medical Code(s): R10.9 - Unspecified abdominal pain - Assessment and plan all Dx Assessment and Plan for all problems:: 1. 20 minutes of chest/abdominal pain with no recurrence. Patient's cardiac troponins are normal X 3, EKG is without acute change and preliminary echocardiogram shows normal left ventricular ejection fraction without wall motion abnormality. Clinically, patient is stable from a cardiac standpoint. Would not recommend further cardiac testing at this time. Continue home dosing of lisinopril and nadolol. 2. Despite normal white count, patient has a history of diverticulosis on CT of abdomen and relates recent chills with strong smelling urine with concern for possible UTI versus diverticulitis. Will defer to Dr. Roberson.
[2019-02-05 11:30] VITALS: BP 132/69
--- NOTE | 2019-02-05 11:38 | Discharge Summary ---
General - General Admission date:: 02/04/19 Discharge date: 02/05/19 HPI HPI: 68-year-old female with history of diabetes, cigarette use since the age of 13, family history of stroke presented to the emergency department yesterday evening after experiencing a 20-minute episode of squeezing chest pain on the morning of admission. After 20 minutes patient's chest pain resolved. However the rest of the day she did not feel well. She admits to lightheadedness upon standing and a weak feeling in the shoulders whenever she would ambulate. Ultimately she presented to the emergency department. In the emergency department she was evaluated. First troponin was negative. Due to significant risk factors she was admitted for rule out of an [place] and cardiology consultation. Patient has had previous cardiac catheterization by Dr. Bailon in 2016 Hospital Course Hospital Course: Patient was admitted and cardiology was consulted. No further workup was planned. Patient admitted to some dysuria and low grade fevers and a urinalysis was checked. Urine had 2+ bacteria. Patient was started on nitrofurantoin and discharged. Patient will follow-up with her primary care provider this week Objective Vital signs: Temp Pulse Resp BP Pulse Ox 98.3 F 58 L 18 132/69 94 L 02/05/19 11:29 02/05/19 11:29 02/05/19 11:29 02/05/19 11:29 02/05/19 11:29 Results Labs on day of discharge: Labs from last 24 hours 02/05/19 02/05/19 02/05/19 06:14 04:10 04:10 WBC 10.6 D RBC 4.13 L Hgb 12.1 L Hct 36.1 L MCV 87.4 MCH 29.2 MCHC 33.4 RDW 13.5 Plt Count 167 MPV 8.7 Neut % (Auto) 54.9 Lymph % (Auto) 37.9 [place] % (Auto) 5.2 Eos % (Auto) 1.6 Baso % (Auto) 0.3 Neut # (Auto) 5.8 Lymph # (Auto) 4.0 [place] # (Auto) 0.6 Eos # (Auto) 0.2 Baso # (Auto) 0.0 Sodium 136 Potassium 4.1 Chloride 100 Carbon Dioxide 27 Anion Gap 13.1 BUN 16 Creatinine 1.29 H Estimated Creat Clear 66 Estimated GFR 41 L Est GFR ( Amer) 50 L Glucose 167 H D POC Glucose 193 H Calcium 9.4 Magnesium 1.8 Troponin I Triglycerides 104 Cholesterol 140 LDL Cholesterol 78 VLDL Cholesterol 21 HDL Cholesterol 41 Cholesterol/HDL Ratio 3.4 02/05/19 02/05/19 02/04/19 04:10 01:05 20:05 WBC RBC Hgb Hct MCV MCH MCHC RDW Plt Count MPV Neut % (Auto) Lymph % (Auto) [place] % (Auto) Eos % (Auto) Baso % (Auto) Neut # (Auto) Lymph # (Auto) [place] # (Auto) Eos # (Auto) Baso # (Auto) Sodium 132 L Potassium 3.9 Chloride 98 Carbon Dioxide 25 Anion Gap 12.9 BUN 14 Creatinine 1.31 H Estimated Creat Clear 65 Estimated GFR 40 L Est GFR ( Amer) 49 L Glucose 344 H POC Glucose Calcium 9.1 Magnesium Troponin I < 0.02 < 0.02 < 0.02 Triglycerides Cholesterol LDL Cholesterol VLDL Cholesterol HDL Cholesterol Cholesterol/HDL Ratio 02/04/19 20:05 WBC 7.7 RBC 4.38 Hgb 12.9 Hct 38.9 MCV 88.8 MCH 29.6 MCHC 33.3 RDW 13.3 Plt Count 186 MPV 8.6 Neut % (Auto) 55.8 Lymph % (Auto) 37.9 [place] % (Auto) 4.1 Eos % (Auto) 1.9 Baso % (Auto) 0.3 Neut # (Auto) 4.3 Lymph # (Auto) 2.9 [place] # (Auto) 0.3 Eos # (Auto) 0.1 Baso # (Auto) 0.0 Sodium Potassium Chloride Carbon Dioxide Anion Gap BUN Creatinine Estimated Creat Clear Estimated GFR Est GFR ( Amer) Glucose POC Glucose Calcium Magnesium Troponin I Triglycerides Cholesterol LDL Cholesterol VLDL Cholesterol HDL Cholesterol Cholesterol/HDL Ratio DS: Diagnosis - Discharge Diagnosis (1) Chest pain Status: Acute (2) Diabetes mellitus with hyperglycemia Status: Acute (3) Hyponatremia Status: Acute (4) Obesity (BMI 30-39.9) Status: Acute (5) COPD (chronic obstructive pulmonary disease) Status: Chronic (6) Tobacco abuse Status: Chronic (7) Renal insufficiency Status: Acute (8) Abdominal pain Status: Acute (9) Dysuria Status: Acute Discharge Plan - Patient Discharge Instructions ACTIVITY: Continue current activity DIET: continue same diet Patient Instructions: Angina, Echocardiogram, DI for Angina, How to Quit Smoking - Follow up Plan Follow up with: Tonya Freeman APRN [Primary Care Provider] - Disposition: Home, Self-Long-Term Medications: Home Medications Medication Instructions Recorded Confirmed Type cetirizine 10 mg tablet 10 mg PO DAILY tab 01/01/18 02/04/19 History fluticasone propionate 50 2 spray INTRANASAL DAILY g 01/01/18 02/04/19 History mcg/actuation nasal spray,suspension gabapentin 600 mg tablet 1,200 mg PO BID tab 01/01/18 02/04/19 History lisinopril 20 mg tablet 20 mg PO DAILY tab 01/01/18 02/04/19 History metoclopramide 5 mg tablet 5 mg PO ACHS 01/01/18 02/05/19 History montelukast 10 mg tablet 10 mg PO QHS 01/01/18 02/04/19 History roflumilast 500 mcg tablet 500 mcg PO DAILY tab 01/01/18 02/04/19 History ropinirole 4 mg tablet 4 mg PO HS tab 01/01/18 02/05/19 History cholecalciferol (vitamin D3) 50,000 unit PO .every other week 01/02/18 02/04/19 History 50,000 unit tablet tab furosemide 20 mg tablet 20 mg PO DAILY tab 01/02/18 02/04/19 History oxybutynin chloride ER 10 mg 10 mg PO DAILY tab 01/02/18 02/04/19 History tablet,extended release 24 hr fluticasone furoate 100 1 inh INHALATION DAILY 11/12/18 02/04/19 History mcg-vilanterol 25 mcg/dose inhalation powder ranitidine 150 mg tablet 150 mg PO DAILY 11/12/18 02/04/19 History Albuterol Sulfate [Proair Hfa 2 puffs IH Q4HP PRN 02/05/19 02/05/19 History 90mcg/puff Inh] Insulin Aspart Prot/Insuln Asp 10 units SQ BID 02/05/19 02/05/19 History [Novolog Mix 70-30 Vial] Nadolol [Corgard] 20 mg PO DAILY 02/05/19 02/05/19 History Nitrofurantoin Macrocrystal 50 mg PO QID #20 cap 02/05/19 Rx [Nitrofurantoin] Venlafaxine HCl [Venlafaxine HCl 75 mg PO DAILY 02/05/19 02/05/19 History ER] Prescriptions/Medication Reconciliation: New Nitrofurantoin Macrocrystal [Nitrofurantoin] 50 mg PO QID #20 cap Continued roflumilast 500 mcg tablet 500 mcg PO DAILY tab fluticasone propionate 50 mcg/actuation nasal spray,suspension 2 spray INTRANASAL DAILY g gabapentin 600 mg tablet 1,200 mg PO BID tab lisinopril 20 mg tablet 20 mg PO DAILY tab metoclopramide 5 mg tablet 5 mg PO ACHS montelukast 10 mg tablet 10 mg PO QHS cetirizine 10 mg tablet 10 mg PO DAILY tab furosemide 20 mg tablet 20 mg PO DAILY tab oxybutynin chloride ER 10 mg tablet,extended release 24 hr 10 mg PO DAILY tab ranitidine 150 mg tablet 150 mg PO DAILY fluticasone furoate 100 mcg-vilanterol 25 mcg/dose inhalation powder 1 inh INHALATION DAILY ropinirole 4 mg tablet 4 mg PO HS tab cholecalciferol (vitamin D3) 50,000 unit tablet 50,000 unit PO .every other week tab Nadolol [Corgard] 20 mg PO DAILY Venlafaxine HCl [Venlafaxine HCl ER] 75 mg PO DAILY Albuterol Sulfate [Proair Hfa 90mcg/puff Inh] 2 puffs IH Q4HP PRN PRN Reason: Shortness Of Breath Or Wheezing Insulin Aspart Prot/Insuln Asp [Novolog Mix 70-30 Vial] 10 units SQ BID
[2019-02-05 13:13] LABS: Appearance,Urine CLEAR (Clear); Bilirubin,Urine Negative (Negative); Blood, Urine Negative (Negative); Color,Urine YELLOW (Yellow); Glucose,Urine (UA) Negative (Negative); Ketones,Urine Negative (Negative); Leukocyte Esterase,Urine Negative (Negative); Microscopic, Urine URINE MICROSCOPIC (MICROSCOPIC); PH,Urine 5.5 (5.0-8.5); Protein,Urine Negative (Negative); Specific Gravity, Urine 1.015 (1.005-1.030); Urobilinogen,Urine 0.2 EU/dl (0.2)
[2019-02-05 14:40] LABS: Bacteria,Urine 2+ /lpf; Squamous Epithelial Cell,Urine Occasional #/hpf (0-5)
--- NOTE | 2019-02-08 14:25 | Cardiology Report ---
PROCEDURE: 2-D M-mode and color Doppler study INDICATIONS FOR THE TEST: Chest pain+ COPD+ Heart Murmur Tobacco Smoking+ Palpitations+ Fatigue Syncope Edema Hypertension+Diabetes Mellitus+ Rheumatic Fever SOB GAUTHIER Obesity+Hyperlipidemia Family History HD Additional History BREAST CA, TOR MASTECTOMY, PT FLAT ON HER BACK. PATIENT INFORMATION HEIGHT:63 WEIGHT:225 GENDER: Female B/P:151/82 2-D/M-MODE INTERPRETATION: 2-D MEASUREMENTS OBSERVED VALUES IN CMS Right Ventricular Dimension (RVDd) 2.6 Interventricular Septum (Thickness)(IVsd) 1.8 Left Ventricular Internal Dimensions(LVIDd) 4.4 Left Ventricular Posterior Wall (Thickness)(LVPWd) 1.1 Aortic Root 3.5 Aortic Cusp Separation 2.2 Left Atrial Dimensions (LAD) 4.2 2D 1. Left atrium is mildly enlarged, left ventricle is normal size, there is mild concentric left ventricular hypertrophy, visually estimated ejection fraction 55% with no regional wall motion abnormality. 2. The right atrium and right ventricle are mildly enlarged with normal contractility. 3. The aortic valve is minimally thickened and fibrosed. 4. The mitral and tricuspid valve leaflets are minimally thickened. 5. The pulmonic valve is poorly present. 6. No significant pericardial effusion noted. DOPPLER INTERROGATION: Doppler interrogation of the aortic, mitral and tricuspid valvular presence of mild mitral and tricuspid regurgitation, tricuspid regurgitation jet velocity is inadequate for calculation of the right ventricular systolic pressure, grade 1 diastolic dysfunction seen without tissue Doppler evidence of raised left atrial pressure. CONCLUSION: 1. Mildly enlarged left atrium, normal left ventricular size, mild concentric left ventricular hypertrophy, visually estimated ejection fraction 55% with no regional wall motion abnormality, grade 1 diastolic dysfunction seen without tissue Doppler evidence of raised left atrial pressure. 2. Mildly enlarged right ventricle with normal contractility. 3. Mild mitral and tricuspid regurgitation 4. No significant pericardial effusion noted.
== END 2019-02-05 15:41 | disposition home or self-care (01) ==
LOC: 2ND 20:07 → ER 20:07 → 2ND 22:20
PROVIDERS: ADMIT Family Medicine; ATTEND Family Medicine
CPT/HCPCS: 36415; 71020; 71046; 74176; 80048; 80061; 81001; 82962; 83735; 84484; 85025; 87086; 93005; 93306; 96372; 99284; G0378

== ENCOUNTER → 2019-02-22 09:47 | Outpatient (CLI) | payer MEDICARE, MEDICAID, SELFPAY ==
--- NOTE | 2019-02-22 09:57 | US_ITS ---
US transvaginal HISTORY: ITS.REASON: RT OVARIAN CYST ORDERING PHYSICIAN: Tonya Freeman APRN PATIENT AGE: 68 years Comparison: None FINDINGS: There has been prior hysterectomy and left oophorectomy.. The right ovary measures 5 x 3.6 cm and contains at least 2 cysts measuring 3 cm and 1.2 cm. The vaginal cuff has an unremarkable appearance. IMPRESSION: There are 2 right ovarian cyst measuring 3 and 1.2 cm. Suggest 3 month follow-up to confirm stability or resolution.
== END ==
PROVIDERS: PCP Nurse Practitioner Family; Visit Provider Nurse Practitioner Family
DX: N83.201 Unspecified ovarian cyst, right side (principal)
CPT/HCPCS: 76830

== ENCOUNTER → 2019-04-26 10:10 | Outpatient (CLI) | payer MEDICARE, MEDICAID, SELFPAY ==
--- NOTE | 2019-04-26 10:11 | XR_ITS ---
XR chest 2V HISTORY: ITS.REASON: dyspnea/cp ORDERING PHYSICIAN: Arturo Bailon MD PATIENT AGE: 69 years COMPARISON: PA and lateral chest 02/04/2019 FINDINGS: The cardiomediastinal silhouette and pulmonary vascularity are within normal limits. The lungs are clear without infiltrates, suspicious nodules, or pleural effusions. Again noted is linear atelectasis versus post inflammatory scarring within the lingula. No acute bony abnormalities. There are minor multilevel degenerative changes mid thoracic spine. IMPRESSION: Nonacute chest findings
--- NOTE | 2019-04-26 10:11 | CA_ITS ---
PROCEDURE: 2-D M-mode and color Doppler study INDICATIONS FOR THE TEST: Chest pain+ COPD+ Heart Murmur Tobacco Smoking+ Palpitations Fatigue+ Syncope Edema+ Hypertension+Diabetes Mellitus+ Rheumatic Fever SOB GAUTHIER+Obesity+Hyperlipidemia Family History HD Additional History BUDDY, hx of bilateral mastectomy PATIENT INFORMATION HEIGHT: 63 WEIGHT: 230 GENDER: Female B/P: 162/66 2-D/M-MODE INTERPRETATION: 2-D MEASUREMENTS OBSERVED VALUES IN CMS Right Ventricular Dimension (RVDd) 3.0 Interventricular Septum (Thickness)(IVsd) 1.0 Left Ventricular Internal Dimensions(LVIDd) 5.2 Left Ventricular Posterior Wall (Thickness)(LVPWd) 1.0 Aortic Root 2.5 Aortic Cusp Separation 2.2 Left Atrial Dimensions (LAD) 3.9 2D 1. Left atrium is mildly enlarged, left ventricle is normal size, mild concentric left ventricular hypertrophy, visually estimated ejection fraction 55% with no regional wall motion abnormality. 2. The right atrium and right ventricle are mildly enlarged with normal contractility. 3. The aortic valve is minimally thickened and fibrosed. 4. The mitral and tricuspid valve leaflets are minimally thickened. 5. The pulmonic valve is poorly visualized. 6. No significant pericardial effusion noted. DOPPLER INTERROGATION: Doppler interrogation of the aortic, mitral and tricuspid valvular presence of mild mitral and tricuspid regurgitation, tricuspid regurgitation jet velocity is inadequate for calculation of the right ventricular systolic pressure, grade 1 diastolic dysfunction seen without tissue Doppler evidence of raised left atrial pressure. CONCLUSION: 1. Technically difficult study because of the patient's factor and poor acoustic windows 2. Mildly enlarged left atrium, normal left ventricular size, mild concentric left ventricular hypertrophy, visually estimated ejection fraction 55% with no regional wall motion abnormality, grade 1 diastolic dysfunction seen without tissue Doppler evidence of raised left atrial pressure. 3. Mildly enlarged right ventricle with normal contractility. 4. Mild mitral and tricuspid regurgitation 5. No significant pericardial effusion noted.
== END ==
PROVIDERS: PCP Nurse Practitioner Family; Visit Provider Internal Medicine
DX: G47.33 Obstructive sleep apnea (adult) (pediatric) (principal); I10 Essential (primary) hypertension; R06.00 Dyspnea, unspecified; R07.9 Chest pain, unspecified
CPT/HCPCS: 71046; 93306

== ENCOUNTER 2020-04-23 15:01 | Outpatient (RCR) | payer MEDICARE, MEDICAID, SELFPAY | END 2020-04-23 15:05 | disposition home or self-care (01) | LOC: PT 15:01 | PROVIDERS: PCP Nurse Practitioner Family; Visit Provider Nurse Practitioner Family | DX: R26.89 Other abnormalities of gait and mobility (principal); M15.9 Polyosteoarthritis, unspecified; E11.41 Type 2 diabetes mellitus with diabetic mononeuropathy; J44.9 Chronic obstructive pulmonary disease, unspecified | CPT/HCPCS: 97542 ==

== ENCOUNTER → 2021-07-06 09:55 | Outpatient (CLI) | payer MEDICARE, MEDICAID, SELFPAY | PROVIDERS: PCP Nurse Practitioner Family; Visit Provider Nurse Practitioner Family | DX: U07.1 COVID-19 (principal) | CPT/HCPCS: 96365 ==

== ENCOUNTER → 2021-11-02 14:16 | Outpatient (POV) | payer MEDICARE, MEDICAID, SELFPAY | PROVIDERS: Visit Provider Dermatology | DX: Z00.00 Encounter for general adult medical examination without abnormal findings (principal) ==

== ENCOUNTER → 2022-04-20 11:09 | Outpatient (CLI) | payer MEDICARE, MEDICAID, SELFPAY ==
--- NOTE | 2022-04-20 11:18 | XR_ITS ---
FINAL REPORT CLINICAL HISTORY: COPD COMPARISON: 04/26/2019 FINDINGS: TWO-VIEW CHEST The heart is in the upper limits of normal in size. The mediastinum is normal. There is scarring at the bases. The lungs are otherwise clear. There is no pneumothorax. Surgical clips are seen in the right breast. IMPRESSION: No acute cardiopulmonary process. Reviewed, Interpreted and Dictated by Jean Chandra MD Transcribed by Jacklyn Vazquez Authenticated and [facility]
== END ==
PROVIDERS: PCP Nurse Practitioner Family; Visit Provider Nurse Practitioner Family
DX: J44.1 Chronic obstructive pulmonary disease with (acute) exacerbation (principal)
CPT/HCPCS: 71046

== ENCOUNTER → 2022-08-15 12:10 | Outpatient (CLI) | payer MEDICARE, MEDICAID, SELFPAY ==
--- NOTE | 2022-08-15 12:16 | XR_ITS ---
FINAL REPORT CLINICAL HISTORY: chronic foot pain FINDINGS: LEFT FOOT Three views of the left foot demonstrate no acute fracture or dislocation. The visualized joint spaces are normally aligned. There is prominent soft tissue swelling overlying the dorsum of the foot measuring up to 2.3 cm. There is a small plantar spur. IMPRESSION: No acute bony abnormality. Reviewed, Interpreted and Dictated by Jean Chandra MD Transcribed by Bertha York Authenticated and . [facility]
--- NOTE | 2022-08-15 12:16 | XR_ITS ---
FINAL REPORT CLINICAL HISTORY: chronic foot pain FINDINGS: RIGHT FOOT 3 views of the right foot were obtained. There is no acute fracture or dislocation. Visualized joint spaces are normally aligned. There is prominent soft tissue swelling overlying the dorsum of the foot measuring up to 2.6 cm. IMPRESSION: No acute bony abnormality. Reviewed, Interpreted and Dictated by Jean Chandra MD Transcribed by Bertha York Authenticated and [facility]
== END ==
PROVIDERS: PCP Family Medicine; Visit Provider Nurse Practitioner Family
DX: G89.29 Other chronic pain (principal); M79.671 Pain in right foot; M79.672 Pain in left foot
CPT/HCPCS: 73630

== ENCOUNTER 2022-11-01 07:06 | Day surgery (SDC) | payer MEDICARE, MEDICAID, SELFPAY ==
[2022-11-01] VITALS (9 sets, daily range): BP systolic 117–157; BP diastolic 56–76; PULSE 67–78; RESP 16–18; TEMP 36.2–36.3; O2SAT 95–100; BMI 45.7
[2022-11-01 07:48] LABS: POC Glucose,Bedside 223 (70-110)
== END 2022-11-01 08:40 | disposition home or self-care (01) ==
LOC: OR 07:07
PROVIDERS: PCP Family Medicine; Visit Provider Ophthalmology
DX: H25.813 Combined forms of age-related cataract, bilateral (principal); F17.210 Nicotine dependence, cigarettes, uncomplicated; Z79.899 Other long term (current) drug therapy; E11.9 Type 2 diabetes mellitus without complications
CPT/HCPCS: 66984; 82962; V2632

== ENCOUNTER → 2022-11-03 16:46 | Outpatient (CLI) | payer MEDICARE, MEDICAID, SELFPAY ==
[2022-11-03 17:40] LABS: Basophils % 0.4 % (0.1-2.0); Eosinophils # 0.1 K/mm3 (0.0-0.4); Eosinophils % 0.9 % (0.1-12.0); Hematocrit 35.2 % (37.0-47.0); Hemoglobin 11.2 g/dL (12.2-16.2); Lymphocytes # 2.6 K/mm3 (0.7-4.5); Lymphocytes % 27.2 % (10-50); Mean Corpuscular HGB Conc 31.8 g/dL (31.8-35.4); Mean Corpuscular Hemoglobin 28.3 pg (27.0-31.2); Monocytes # 0.5 K/mm3 (0.1-1.0); Monocytes % 4.9 % (1.7-9.3); Neutrophils # 6.4 K/mm3 (1.8-7.8); Neutrophils % 66.6 % (37.0-80.0); Platelet Count 220 K/mm3 (142-424); Red Blood Count 3.96 M/mm3 (4.20-5.40); White Blood Count 9.6 K/mm3 (4.8-10.8)
[2022-11-03 17:54] LABS: Chloride 94 mmol/L (98-107); Potassium 4.9 mmoL/L (3.5-5.1); Sodium 134 mmol/L (136-145)
[2022-11-03 17:57] LABS: Alanine Aminotransferase 18 U/L (12-78); Albumin Level 3.7 g/dl (3.5-5.0); Albumin/Globulin Ratio 1.2 (1.1-1.8); Alkaline Phosphatase 206 U/L (38-126); Anion Gap 11.9 mEq/L (5-15); Aspartate Amino Transferase 32 U/L (14-36); Bilirubin,Total 0.5 mg/dl (0.2-1.3); Blood Urea Nitrogen 18 mg/dl (7-17); Calcium 9.2 mg/dl (8.4-10.2); Carbon Dioxide 33 mmol/L (22.0-30.0); Estimated Glomerular Filt Rate 44 ml/min (>60); GFR (African American) 53 ML/MIN (>60); Glucose 211 mg/dl (74-100); Total Protein,Serum 6.7 g/dl (6.3-8.2)
[2022-11-03 17:59] LABS: Hemoglobin A1C 10.1 % (4.0-6.0)
== END ==
PROVIDERS: PCP Family Medicine; Visit Provider Family Medicine
DX: E11.65 Type 2 diabetes mellitus with hyperglycemia (principal); J44.9 Chronic obstructive pulmonary disease, unspecified; R60.0 Localized edema; Z79.84 Long term (current) use of oral hypoglycemic drugs
CPT/HCPCS: 80053; 83036; 85025

== ENCOUNTER → 2022-11-04 13:43 | Outpatient (CLI) | payer MEDICARE, MEDICAID, SELFPAY ==
[2022-11-04 13:51] LABS: Microscopic, Urine URINE MICROSCOPIC (MICROSCOPIC)
[2022-11-04 15:09] LABS: Appearance,Urine CLEAR (Clear); Bilirubin,Urine Negative (Negative); Blood, Urine Negative (Negative); Color,Urine YELLOW (Yellow); Glucose,Urine (UA) 1+ (Negative); Ketones,Urine Negative (Negative); Leukocyte Esterase,Urine 1+ (Negative); Nitrate,Urine Negative (Negative); PH,Urine 5.5 (5.0-8.5); Protein,Urine Negative (Negative); Urobilinogen,Urine 0.2 EU/dl (0.2)
[2022-11-04 15:52] LABS: Bacteria,Urine 3+ /lpf; Squamous Epithelial Cell,Urine Occasional #/hpf (0-5)
== END ==
PROVIDERS: PCP Family Medicine; Visit Provider Family Medicine
DX: N39.0 Urinary tract infection, site not specified (principal); B96.29 Other Escherichia coli [E. coli] as the cause of diseases classified elsewhere
CPT/HCPCS: 81001; 87086; 87088; 87186

== ENCOUNTER 2022-11-06 23:16 | Observation (INO) | payer MEDICARE, MEDICAID, SELFPAY ==
[2022-11-06 23:16] VITALS: BP 128/60; PULSE 87; RESP 24; TEMP 37.8; O2SAT 96; BMI 47.5
--- NOTE | 2022-11-06 23:30 | ECG_ITS ---
APPROVED REPORT Exam: Resting ECG HR:82 bpm ECG Measurements Heart Rate [address] 178 P 101 QRSd 86 QRS 26 QT 348 T 53 QTc 387 Conclusion SINUS RHYTHM LOW QRS VOLTAGE IN PRECORDIAL LEADS [QRS DEFLECTION < 1.0 mV IN CHEST LEADS] MODERATE ST DEPRESSION [0.05+ mV ST DEPRESSION] ABNORMAL ECG UNCONFIRMED REPORT Electronically signed by : Rafael Chan MD 11/07/2022 19:44:02
--- NOTE | 2022-11-06 23:33 | XR_ITS ---
PROCEDURE INFORMATION: Exam: XR Chest Exam date and time: 11/06/2022 11:53 PM Age: 72 years old Clinical indication: Shortness of breath; Additional info: SOA, productive cough TECHNIQUE: Imaging protocol: Radiologic exam of the chest. Views: 1 view. COMPARISON: CR XR CHEST 2V 04/20/2022 11:31 AM FINDINGS: Lungs: Mild hyperexpansion and hyperlucency with mild diaphragmatic flattening suggesting possible COPD. Pulmonary vasculature grossly normal. New alveolar opacity in the right lung base, atelectasis versus pneumonia. Pleural spaces: Chronic left lateral costophrenic angle blunting suggesting mild pleural scarring versus trace effusion. No pneumothorax. Heart/Mediastinum: Heart size normal. No tracheal/mediastinal shift. Bones/joints: No acute osseous abnormalities are identified. Bilateral lower thoracic surgical clips. IMPRESSION: 1. Right basilar airspace disease, atelectasis versus pneumonia. 2. Underlying changes of COPD.
[2022-11-06 23:41] LABS: ABG Base Excess 4.4 mmol/L (-2.4-2.3); ABG HCO3 27.7 mmhg (22.0-26.0); ABG Oxygen Saturation 96 % (90-100); ABG PH 7.49 mmol/L (7.35-7.45); ABG PO2 75.1 mmhg (80-100); ABG TCO2 28.8 mmhg (23-27); Allen's Test Y; Oxygen 2 %; Source Right Radial
[2022-11-06 23:43] LABS: Coronavirus 19, PCR Not Detected (NotDetected); Influenza A, PCR Not Detected (NotDetected); Influenza B, PCR Not Detected (NotDetected)
[2022-11-06 23:46] LABS: Basophils # 0.1 K/mm3 (0-0.2); Basophils % 0.4 % (0.1-2.0); Eosinophils % 0.2 % (0.1-12.0); Hematocrit 32.7 % (37.0-47.0); Hemoglobin 10.4 g/dL (12.2-16.2); Lymphocytes # 1.7 K/mm3 (0.7-4.5); Lymphocytes % 12.5 % (10-50); Mean Corpuscular HGB Conc 31.9 g/dL (31.8-35.4); Mean Corpuscular Hemoglobin 27.4 pg (27.0-31.2); Mean Corpuscular Volume 85.9 fl (81-99); Mean Platelet Volume 9.4 fl (7.4-10.4); Monocytes # 0.7 K/mm3 (0.1-1.0); Monocytes % 5.3 % (1.7-9.3); Neutrophils # 11.1 K/mm3 (1.8-7.8); Neutrophils % 81.7 % (37.0-80.0); Platelet Count 198 K/mm3 (142-424); Red Cell Distribution Width 15.8 % (11.5-17.5); White Blood Count 13.6 K/mm3 (4.8-10.8)
[2022-11-06 23:51] LABS: Lactic Acid 1.2 mmol/L (0.7-2.1)
[2022-11-06 23:52] LABS: Alanine Aminotransferase 16 U/L (12-78); Albumin Level 3.7 g/dl (3.5-5.0); Albumin/Globulin Ratio 1.1 (1.1-1.8); Alkaline Phosphatase 172 U/L (38-126); Anion Gap 11.2 mEq/L (5-15); Aspartate Amino Transferase 27 U/L (14-36); Bilirubin,Total 0.6 mg/dl (0.2-1.3); Blood Urea Nitrogen 27 mg/dl (7-17); Calcium 8.7 mg/dl (8.4-10.2); Carbon Dioxide 31 mmol/L (22.0-30.0); Chloride 100 mmol/L (98-107); Creatinine Clearance Estimated 26 mL/min (50-200); Estimated Glomerular Filt Rate 34 ml/min (>60); GFR (African American) 41 ML/MIN (>60); Globulin 3.3 g/dL (1.3-3.2); Glucose 189 mg/dl (74-100); Magnesium 1.7 mg/dl (1.6-2.3); Potassium 4.2 mmoL/L (3.5-5.1); Sodium 138 mmol/L (136-145)
--- NOTE | 2022-11-06 23:52 | HMH.EDSOB ---
Discharge Plan Disposition Patient Disposition: Admitted As Inpatient Chief Complaint: Shortness of Breath/Dyspnea Prescriptions Prescriptions: No Action albuterol sulfate 1.25 mg/3 mL solution for nebulization 1.25 mg continuous nebulization TID (DME) Accu-Chek Anita Plus test strp Strip See Rx Instructions .ROUTE .MEDSUPPLY Qty: 10 Rx Instructions: As directed nystatin 100,000 unit/gram powder 1 applic topical BID (DME) pen needle, diabetic [Droplet Pen Needle] 31 gauge x 1/4 needle See Rx Instructions .ROUTE .MEDSUPPLY Qty: 50 Rx Instructions: As directed Konsyl Sugar-Free 6 gram/6 gram powder 1 tbsp PO DAILY Rx Instructions: mix into at least 8 oz of water or juice before administering diclofenac sodium 1 % kit 2 g topical QID Rx Instructions: apply to single elbow, wrist or hand; for hand includes palm/fingers/back of hand venlafaxine 75 mg tablet extended release 24hr 75 mg PO DAILY 90 Days Qty: 90 0RF ropinirole 4 mg tablet 4 mg PO HS 90 Days Qty: 90 0RF Novolin 70-30 FlexPen U-100 100 unit/mL (70-30) insulin pen 25 unit SQ .TID with meals 90 Days Qty: 15 0RF cetirizine [Zyrtec] 10 mg tablet 10 mg PO DAILY 90 Days Qty: 90 0RF albuterol sulfate 90 mcg/actuation HFA aerosol inhaler 2 puff IH Q4HP PRN (Reason: Shortness Of Breath Or Wheezing) 90 Days Qty: 8.5 0RF gabapentin 600 mg tablet 1,200 mg PO BID Qty: 360 1RF acetaminophen 500 MG tablet 500 mg PO NEEDED PRN (Reason: pain) furosemide 40 mg tablet 40 mg PO DAILY potassium chloride 10 mEq capsule, extended release See Rx Instructions .ROUTE .COMPLEX Rx Instructions: TAKE 1 CAPSULE EVERY DAY oxybutynin chloride 10 mg tablet extended release 24hr See Rx Instructions .ROUTE .COMPLEX Rx Instructions: TAKE 1 TABLET DAILY FOR INCONTINENCE lisinopril 20 mg tablet See Rx Instructions .ROUTE .COMPLEX Rx Instructions: TAKE 1 TABLET EVERY DAY FOR HYPERTENSION famotidine 40 mg tablet 40 mg PO BID nadolol 20 mg tablet See Rx Instructions .ROUTE .COMPLEX Rx Instructions: TAKE 1 TABLET EVERY DAY FOR HYPERTENSION pantoprazole 40 mg tablet,delayed release (DR/EC) 40 mg PO DAILY montelukast 10 mg tablet See Rx Instructions .ROUTE .COMPLEX Rx Instructions: TAKE 1 TABLET EVERY DAY AT BEDTIME FOR COPD mupirocin 2 % ointment 1 applic topical TID fluticasone propionate 50 mcg/actuation spray,suspension See Rx Instructions .ROUTE .COMPLEX Rx Instructions: USE 2 SPRAYS NASALLY DAILY FOR ALLERGY SYMPTOMS Spiriva with HandiHaler 18 mcg capsule, w/inhalation device 1 cap inhalation DAILY Rx Instructions: puncture 1 cap using device; one dose = 2 inhalations insulin glargine [Lantus Solostar U-100 Insulin] 100 unit/mL (3 mL) insulin pen 45 unit SQ DAILY roflumilast 500 mcg tablet See Rx Instructions .ROUTE .COMPLEX Rx Instructions: TAKE 1 TABLET DAILY FOR COPD Dialyvite Vitamin D3 Max 1,250 mcg (50,000 unit) tablet See Rx Instructions .ROUTE .COMPLEX Rx Instructions: TAKE 1 TABLET EVERY OTHER WEEK FOR SUPPLEMENT fluticasone furoate-vilanterol [Breo Ellipta] 100-25 mcg/dose blister with device 1 inh inhalation DAILY Clinical Impressions Clinical Impression: Acute exacerbation of chronic obstructive airways disease, Tobacco abuse, Diabetes, CAP (community acquired pneumonia) Discharge ED Provider: Jocelyn (ED)Hermelindo Resp/SOB HPI General Chief Complaint: Shortness of Breath/Dyspnea Stated Complaint: generalized weakness Time Seen by Provider: 11/06/22 23:52 Mode of Arrival: EMS Source of Information: Patient, EMS and Medical Record Limitations: No Limitations Description of Symptoms (Recalled from ER Triage Doc. by RN): 72 F presents via EMS from home with c/o increased SOA and cough. EMS reports family
[2022-11-06 23:57] LABS: C-Reactive Protein 51.9 mg/L (0-4)
[2022-11-07] VITALS (13 sets, daily range): BP systolic 123–141; BP diastolic 44–81; PULSE 63–90; RESP 16–26; TEMP 36.3–37.3; O2SAT 94–99; BMI 44.9; BMI 44.6
[2022-11-07 00:06] LABS: NT Pro Brain Natriuretic Pep. 294 pg/mL (0-125)
[2022-11-07 00:09] LABS: Troponin I < 0.01 ng/ml (0.00-0.034)
[2022-11-07 00:21] LABS: Erythrocyte Sedimentation Rate 132 mm/hr (0-30)
[2022-11-07 00:37] LABS: Procalcitonin 0.548 ng/mL (0.0-2.0)
--- NOTE | 2022-11-07 00:41 | PC.NURSE ---
Patients son updated on patient condition
--- NOTE | 2022-11-07 00:50 | PC.NURSE ---
s/w Elier Odom, hospitalist, for admission. Notified fuel system maintenance supervisor for bed assignment.
--- NOTE | 2022-11-07 01:31 | EXP.HP ---
History of Present Illness *Admission Date: 11/07/22 *Reason for visit:: Shortness of air, cough *History of present illness: Ms. Fernandez is a 72-year-old female with a past medical history of COPD, home oxygen dependent at 2L, HTN and Diabetes. She presents to [facility] due to acute onset of shortness of air associated with cough worse than her normal. In the ER she had imaging of the chest that showed atelectasis verus early consolidations. She appears hypovolemic with dry mucus membranes and creatinine is elevated above her most recent baseline. Covid and Flu testing were negative. The patient will be admitted with initial impression: COPD exacerbation. She will be placed on iv fluids. Repeat imaging will be obtained on 11/07. She will be placed empirically on Rocephin and Azithromycin and cultures will be obtained. She has a greater than 100-pack year history, she was encouraged to stop smoking and offered pharmacological interventions. The plan of care was discussed with the patient and son at bedside. Both verbalized understanding and agreement with the plan of care. [facility] Disclaimer: The information contained in this section may have been updated after the patient was seen, as this information can be updated by other users. Medical History Allergies Asthma Breast cancer Bronchitis CAD (coronary artery disease) Chronic cough COPD (chronic obstructive pulmonary disease) Depression Diabetes Diabetes mellitus with hyperglycemia Diabetic foot Diastolic dysfunction Dysuria Edema History of cataract History of COVID-19 History of diverticulitis History of noncompliance with medical treatment Hyperlipidemia Hypertension Hypertensive disorder Hyponatremia Intermittent palpitations Metatarsalgia of both feet Obesity (BMI 30-39.9) Onychodystrophy Onychoincurvatum Onychomycosis of toenail Pneumonia Renal insufficiency Skin cancer Sleep apnea Type 2 diabetes mellitus, with long-term current use of insulin Surgical History H/O mastectomy H/O: hysterectomy History of bladder surgery History of carpal tunnel release History of cholecystectomy History of dental surgery History of surgical removal of lesion Family History Cancer Mother Sister Father Son Hypertension Mother Social History Smoking Status: Current every day smoker tobacco type: cigarettes packs per day: 2 second hand exposure: Yes Tobacco counseling given: patient declined alcohol intake: never substance use type: denies use current occupational status: disabled Travel in the last 8 weeks: None household members: none housing: apartment current occupational exposures/hazards: No caffeine: Yes special adma needs: No agree to transfusion: No Review of Systems Review of Systems Review of systems:: pertinent systems reviewed and negative unless documented below Constitutional Constitutional: Reports system reviewed and no additional complaints, except as documented Eyes Eyes: Reports system reviewed and no additional complaints, except as documented ENT Ears, Nose, Mouth, and Throat: Reports system reviewed and no additional complaints, except as documented *Cardiovascular Cardiovascular: Reports system reviewed and no additional complaints, except as documented and Reports dyspnea *Respiratory Respiratory: Reports chest congestion, Reports cough and Reports dyspnea *Gastrointestinal Gastrointestinal: Reports system reviewed and no additional complaints, except as documented *Genitourinary Genitourinary: Reports system reviewed and no additional complaints, except as documented *Musculoskeletal Musculoskeletal: Reports system reviewed and no additional complaints, except as documented Integumentary/
--- NOTE | 2022-11-07 01:32 | PC.NURSE ---
pt requested to use the bathroom, she is unable to walk or stand with this RN. Assisted pt on the bed lyles but refused to use. Staff here to transport pt to [facility] and they state they will attempt a bedside commode with more staff assisting.
[2022-11-07 02:35] LABS: Microscopic, Urine URINE MICROSCOPIC (MICROSCOPIC)
[2022-11-07 02:40] LABS: Appearance,Urine SL CLOUDY (Clear); Bilirubin,Urine Negative (Negative); Blood, Urine Negative (Negative); Color,Urine YELLOW (Yellow); Glucose,Urine (UA) Negative (Negative); Ketones,Urine Negative (Negative); Leukocyte Esterase,Urine 2+ (Negative); Nitrate,Urine POSITIVE (Negative); Protein,Urine Negative (Negative); Urobilinogen,Urine 0.2 EU/dl (0.2)
[2022-11-07 02:53] LABS: Bacteria,Urine 3+ /lpf
--- NOTE | 2022-11-07 03:51 | PC.WOUNDNOTE ---
right outer calf area right calf coccyx left lateral calf left inner calf area right leg
--- NOTE | 2022-11-07 03:55 | PC.NURSE ---
pt with sepsis risk, md and provider previously aware, 1L bolus given in er, levaquin started, blood cultures obtained in er.
[2022-11-07 04:31] LABS: Troponin I < 0.01 ng/ml (0.00-0.034)
--- NOTE | 2022-11-07 05:47 | CA_ITS ---
APPROVED REPORT EXAM: Comprehensive 2D, Doppler, and color-flow Echocardiogram Observatory Director: Deb Tai RVT Ht: 5 ft 1 in Wt: 243lbs BSA: 2.05 BP: 134/58 mmHg Indications: COPD,EDEMA,CAD,DD,DM,SMOKER,PALPS,OBESITY,HTN,HLD,TOR MASECTOMY TDS-PT BODY HABITUS 2D Dimensions LVOT 2.13 cm (M/F) 1.5-2.5 LA Volume 33.60 mL LA Volume Index 16.39 mL/m2 (M/F) 16-34 M-Mode Dimensions RVDd 2.94 cm (0.9-2.6) LA Diam 4.76 cm (1.9-4.0) LVDd 4.47 cm (3.5-5.7) Ao Diam 3.13 cm (2.0-3.7) LVDs 2.78 cm (3.5-5.7) IVSd 1.29 cm (0.6-1.1) PWd 0.85 cm (0.6-1.1) EF (Teich) 68.10% FS 37.80% EDV (Teich) 91.00 mL TAPSE 2.47 (<1.7) ESV (Teich) 29.00 mL LV Diastology E Decel Time 203.00 (160-240 msec) E/A Ratio 1.1 MED E' 10.00 (< 7 cm/sec) E'/MED E' Ratio 11.31 (>14) LAT E' 9.10 (<10 cm/sec) E/LAT E' Ratio 12.43 (>14) Aortic Valve AO Peak GR. 5.40 mmHg Mitral Valve MV E Max Brennon. 113.00 (40-130 cm/s) MV A Velocity 103.00 (40-130 cm/s) E/A Ratio 1.10 MV Decel. Time 203.00 (160-240 ms) MV PHT 60.00 ms Pulmonary Valve PV Peak Velocity 80.00 (50-150 cm/s) Tricuspid Valve TR P. Velocity 249.00 cm/s RAP Estimate 10.00 mmHg RVSP 34.80 mmHg Left Ventricle Left atrium is mildly enlarged, left ventricle is normal size mild concentric left ventricular hypertrophy, estimated ejection fraction 55% with no regional wall motion abnormality. Diastolic parameters are inconclusive. Right Ventricle Right atrium and right ventricle are mildly enlarged with normal contractility. Aortic Valve Aortic valve is minimally thickened and fibrosed there is no aortic stenosis aortic insufficiency. Mitral Valve Mitral valve grossly normal, there is trace mitral regurgitation Tricuspid Valve Tricuspid grossly normal, there is trace tricuspid regurgitation, tricuspid regurgitation jet velocity is inadequate for calculation of the right ventricular systolic pressure. Pulmonic Valve Pulmonic valve is poorly visualized. Great Vessels Aortic root is normal size. Inferior vena cava is poorly visualized. Pericardium No significant pericardial effusion noted. Conclusion 1. Mild biatrial enlargement, normal left ventricular size, mild concentric left ventricular hypertrophy, estimated ejection fraction 55% with no regional wall motion abnormality, diastolic parameters are inconclusive. 2. Mildly enlarged right ventricle with normal contractility. 3. Trace mitral and tricuspid regurgitation. 4. No significant pericardial effusion noted. 5. Inferior vena cava is poorly visualized. Electronically signed by : Eric Wisdom MD 11/08/2022 06:23:12
[2022-11-07 06:36] LABS: POC Glucose,Bedside 200 (70-110)
[2022-11-07 07:15] LABS: Mean Corpuscular Volume 85.5 fl (81-99); Neutrophils # 5.2 K/mm3 (1.8-7.8)
--- NOTE | 2022-11-07 07:19 | HMH.PHAINT1 ---
Pharmacy Intervention Comments: MEDICATION RECONCILIATION COMPLETED ON PATIENT USING EXTERNAL FILL HISTORY FROM PHARMACY, PATIENT INTERVIEW, AND LIST FROM PCP OFFICE. -CHAMP VERAD
[2022-11-07 07:32] LABS: Chloride 104 mmol/L (98-107); Potassium 4.2 mmoL/L (3.5-5.1); Sodium 137 mmol/L (136-145)
[2022-11-07 07:34] LABS: Blood Urea Nitrogen 25 mg/dl (7-17); Creatinine Clearance Estimated 32 mL/min (50-200); Estimated Glomerular Filt Rate 44 ml/min (>60); GFR (African American) 53 ML/MIN (>60)
[2022-11-07 07:35] LABS: Alanine Aminotransferase 16 U/L (12-78); Albumin Level 3.1 g/dl (3.5-5.0); Alkaline Phosphatase 130 U/L (38-126); Anion Gap 7.2 mEq/L (5-15); Aspartate Amino Transferase 28 U/L (14-36); Bilirubin,Total 0.4 mg/dl (0.2-1.3); Calcium 8.2 mg/dl (8.4-10.2); Carbon Dioxide 30 mmol/L (22.0-30.0); Glucose 166 mg/dl (74-100); Total Protein,Serum 6.1 g/dl (6.3-8.2)
[2022-11-07 07:47] LABS: NT Pro Brain Natriuretic Pep. 418 pg/mL (0-125)
[2022-11-07 07:52] LABS: Basophils % 0.4 % (0.1-2.0); Eosinophils % 0.5 % (0.1-12.0); Hematocrit 28.9 % (37.0-47.0); Hemoglobin 9.4 g/dL (12.2-16.2); Lymphocytes # 1.8 K/mm3 (0.7-4.5); Lymphocytes % 23.4 % (10-50); Mean Corpuscular HGB Conc 32.4 g/dL (31.8-35.4); Mean Corpuscular Hemoglobin 27.7 pg (27.0-31.2); Mean Platelet Volume 10.1 fl (7.4-10.4); Monocytes # 0.7 K/mm3 (0.1-1.0); Monocytes % 8.3 % (1.7-9.3); Neutrophils % 67.3 % (37.0-80.0); Platelet Count 152 K/mm3 (142-424); Red Blood Count 3.38 M/mm3 (4.20-5.40); White Blood Count 7.8 K/mm3 (4.8-10.8)
[2022-11-07 08:32] LABS: Troponin I < 0.01 ng/ml (0.00-0.034)
--- NOTE | 2022-11-07 09:59 | HMH.OTEV ---
OT Inpatient Evaluation Rehab OT IP Evaluation Start: 11/07/22 04:55 Freq: ONCE Status: Active Protocol: Document 11/07/22 09:46 DISHA ([facility]07/22 09[facility]59 [id number] Re[facility] OT IP Assessment Subjective History Pt is oriented x2 person and . Pt is agreeable to engage in therapy evaluation. Pt was admitted to [facility] on 11/07/22 due to Shortness of air, cough . Pt reports that she was lived at home alone. She reports that she has assistance daily with healthcare workers. She requires assistance with dressing, bathing, cooking, and cleaning. Pt reports that her son assists her with cleaning as well. She reports that she uses a walker for functional mobility. She also uses oxygen 2L at home. Pt has a past medical history of the following: Allergies Asthma Breast cancer Bronchitis CAD (coronary artery disease) Chronic cough COPD (chronic obstructive pulmonary disease) Depression Diabetes Diabetes mellitus with hyperglycemia Diabetic foot Diastolic dysfunction Dysuria Edema History of cataract History of COVID-19 History of diverticulitis History of noncompliance with medical treatment Hyperlipidemia Hypertension Hypertensive disorder Hyponatremia Intermittent palpitations Metatarsalgia of both feet Obesity (BMI 30-39.9) Onychodystrophy Onychoincurvatum
--- NOTE | 2022-11-07 10:24 | HMH.PTEV ---
Physical Therapy Evaluation Rehab PT IP Evaluation Start: 11/07/22 04:55 Freq: ONCE Status: Active Protocol: Document 11/07/22 10:10 PHOREYLENA (Rec: 11/07/22 10:24 PHORNE [id number]) Subjective/History History History 72 yowf adm to [facility] with COPD exac. She also presents with poss LE cellulitis with multiple small wounds. She reports she lives alone, no steps to enter the home and uses a RW for all mobility at baseline. Subjective Subjective Pt difficult to arouse this am , but she reports this is her baseline. She c/o tenderness in the L lower leg. Rehab PT IP Eval Objective Appearance Patient Behavior Appropriate Patient Orientation Person,Place,Time Difficulty following instructions none Speech Pattern Clear Ambulation Patient Able to Ambulate Yes Ambulation Observation IP General Gait Pattern Observation Wide Based Gait,Shuffling Step Ambulation Distance (feet) 5 Ambulation Assistive Device Rolling Walker Ambulation Ability Contact Guard/Hand Hold Balance Ability to Arise Able, uses arms to help Sitting Balance Steady, safe Standing Balance Steady, wide stance Dynamic Sitting Balance Ability Good Dynamic Standing Balance Ability Fair Transfers Bed Transfer Ability Contact Guard/Hand Hold Chair Transfer Ability Contact Guard/Hand Hold Sit to Stand Bed Transfer Ability Contact Guard/Hand Hold Sit to Stand Chair Transfer Ability Contact Guard/Hand Hold Rehab PT IP prob,goals,plan Problems Date of Evaluation: 11/07/22 PT IP Problems Bed Mobility,Transfers,Gait Rehab Potential Rehab Potential Good Plan PT Intervention Plan Bed Mobility,Transfers,Gait, Therapeutic Exercise PT Plan Frequency Daily Duration LOS Discharge Goals Bed Transfer Ability Supervision/Stand by Sit to Stand Chair Transfer Ability Supervision/Stand by Ambulation Assistive Device Rolling Walker Ambulation Distance (feet) 20 Discharge Plan PT Discharge Plan Pt is currently most appropriate for rehab placement. If her mobility improves, she may be able to return home once medically stable. G -code Required No
--- NOTE | 2022-11-07 10:28 | HMH.PTWOUND ---
Rehab Inpt Wound Evaluation Rehab IP Wound Evaluation Start: 11/07/22 04:55 Freq: ONCE Status: Active Protocol: Document 11/07/22 10:24 PHOROSALIND (Rec: 11/07/22 10:28 PHORNE [id number]) Rehab PT Wound Assessment Subjective Subjective 72 yowf adm to [facility] with COPD exac. She also presents with poss LE cellulitis with multiple small wounds. She reports she lives alone, no steps to enter the home and uses a RW for all mobility at baseline. 3+ pitting edema noted to Nancy SCHNEIDER. Pt reports edema has been present for ~ 1 yr and even worse at times. She continues to smoke despite counselling against tobacco use. Wound Left Lateral Calf Wound Type Stasis Ulcer Is This a Chronic Wound Yes Wound Length (cm) 1.4 Wound Width (cm) 1.4 Wound Depth (cm) 0.1 Wound Bed Appearance Yellow Percentage of Slough (%) 100 Wound Margins Description Indistinct Surrounding Tissue Appearance [place],Bright Red Edema Type Pitting Edema Degree 3+ Query Text:1+ Trace, Barely Detectable, Rebound 15-30 seconds 2+ Moderate, Slight Indentation, Rebound 10-20 seconds 3+ Deep, Deeper Indentation, Rebound > 30 seconds 4+ Very Deep, Rebound > 60 seconds Edema Appearance Weeping Wound Drainage Description Serous Drainage Amount Small Primary Dressing Unna Boot Wound Secondary Dressing Type Adhering Gauze Roll Wound Debridement Amount of Tissue None Removed Dressing Change Patient Tolerance Tolerated Well Plan/Recommendation Comment Currently unna boot is most effective treatment for wounds and edema. Nsg can change dressing as needed once every 3-4 days. However, pt is highly unlikely to follow recommended dressing wear protocol. She states, If that starts to hurt I'm gonna cut it off. I've had those before and they hurt and as soon as I get home I'll cut it off. Eval Complexity Eval Charge Codes
--- NOTE | 2022-11-07 11:48 | SW/DCPLANNER ---
Addendum entered by [facility] 11/08/22 15:01: Per Estelle castrejon/ [facility] this patient has been approved for SNF level of care for today. MD and patient concur with disposition. Patient will discharge today. Estelle has stated that patient will not need a repeat COVID swab today. Addendum entered by [facility] 11/08/22 14:43: Estelle castrejon/ [facility] started precert on this patient this AM. Patient is agreeable to placement. Addendum entered by [facility] 11/08/22 10:47: [facility] will not have a bed till Monday. Patient information has been faxed to [facility]. Addendum entered by [facility] 11/08/22 09:50: Patient is now somewhat agreeable to placement at this time. Patient did have multiple questions regarding smoking at facilities and I did inform patient that all facilities in network with her insurance are tobacco free. Patient verbalized that she understood and would be willing to discharge to [facility] or [facility] SNF level of care. Patient information will be faxed to both facilities this AM. Ina w/ [facility] and Christen w/ [facility] stated they do have female beds available at this time. Dr Donnelly has stated that patient is medically stable for discharge at this time. I will continue to follow up with patient, MD and facilities. Original Note: I spoke with this patient regarding plans once medically stable for discharge. PT/OT evaluated patient and recommended SNF level of care. Patient is currently refusing SNF level of care but agreeable to continue home health services. Patient is currently established with [facility] and services will be resumed at time of discharge. Patient is expected to discharge home tomorrow pending no setbacks.
[2022-11-07 12:06] LABS: POC Glucose,Bedside 200 (70-110)
[2022-11-07 13:05] LABS: Hemoglobin A1C 10.3 % (4.0-6.0)
[2022-11-07 16:03] LABS: POC Glucose,Bedside 200 (70-110)
--- NOTE | 2022-11-07 17:11 | PC.NURSE ---
NO ACUTE CHANGES FROM PREVIOUS SHIFT. PT HAS USED O2 2L NC ON AND OFF THROUGH OUT THE SHIFT. PT WORE GEOVANNY BOOT ON LT LEG FOR AROUND 7 HRS TODAY. PT BACK TO BED WITH CB IN REACH. NO CONCERNS AT THIS TIME.
[2022-11-07 21:04] LABS: POC Glucose,Bedside 275 (70-110)
[2022-11-08 04:00] VITALS: BP 135/59; PULSE 65; RESP 20; TEMP 36.6; O2SAT 95; BMI 44.9
--- NOTE | 2022-11-08 04:55 | PC.NURSE ---
no changes since previous assessment. Sputum collected this shift. Pt remains on RA and tolerates well.
[2022-11-08 05:32] LABS: POC Glucose,Bedside 219 (70-110)
[2022-11-08 06:02] LABS: Basophils % 0.5 % (0.1-2.0); Eosinophils # 0.1 K/mm3 (0.0-0.4); Hematocrit 28.4 % (37.0-47.0); Hemoglobin 9.1 g/dL (12.2-16.2); Lymphocytes # 1.7 K/mm3 (0.7-4.5); Lymphocytes % 37.3 % (10-50); Mean Corpuscular HGB Conc 31.9 g/dL (31.8-35.4); Mean Corpuscular Volume 87.8 fl (81-99); Mean Platelet Volume 8.9 fl (7.4-10.4); Monocytes # 0.3 K/mm3 (0.1-1.0); Monocytes % 6.1 % (1.7-9.3); Neutrophils # 2.6 K/mm3 (1.8-7.8); Neutrophils % 55.1 % (37.0-80.0); Platelet Count 155 K/mm3 (142-424); Red Blood Count 3.24 M/mm3 (4.20-5.40); Red Cell Distribution Width 15.7 % (11.5-17.5); White Blood Count 4.7 K/mm3 (4.8-10.8)
[2022-11-08 06:09] LABS: Alanine Aminotransferase 15 U/L (12-78); Albumin Level 3.2 g/dl (3.5-5.0); Albumin/Globulin Ratio 1.1 (1.1-1.8); Anion Gap 6.9 mEq/L (5-15); Aspartate Amino Transferase 24 U/L (14-36); Carbon Dioxide 33 mmol/L (22.0-30.0); Chloride 99 mmol/L (98-107); Magnesium 1.7 mg/dl (1.6-2.3); Potassium 3.9 mmoL/L (3.5-5.1); Sodium 135 mmol/L (136-145); Total Protein,Serum 6.2 g/dl (6.3-8.2)
[2022-11-08 06:10] LABS: Alkaline Phosphatase 164 U/L (38-126); Bilirubin,Total 0.3 mg/dl (0.2-1.3); Blood Urea Nitrogen 21 mg/dl (7-17); Calcium 8.6 mg/dl (8.4-10.2); Creatinine Clearance Estimated 34 mL/min (50-200); Estimated Glomerular Filt Rate 49 ml/min (>60); GFR (African American) 59 ML/MIN (>60); Glucose 201 mg/dl (74-100)
--- NOTE | 2022-11-08 07:17 | EXP.DC.SUM ---
General Admission date:: 11/07/22 Discharge date: 11/09/22 HPI HPI HPI: Ms. Fernandez is a 72-year-old female with a past medical history of COPD, home oxygen dependent at 2L, HTN and Diabetes. She presents to [facility] due to acute onset of shortness of air associated with cough worse than her normal. In the ER she had imaging of the chest that showed atelectasis verus early consolidations. She appears hypovolemic with dry mucus membranes and creatinine is elevated above her most recent baseline. Covid and Flu testing were negative. The patient will be admitted with initial impression: COPD exacerbation. She will be placed on iv fluids. Repeat imaging will be obtained on 11/07. She will be placed empirically on Rocephin and Azithromycin and cultures will be obtained. She has a greater than 100-pack year history, she was encouraged to stop smoking and offered pharmacological interventions. The plan of care was discussed with the patient and son at bedside. Both verbalized understanding and agreement with the plan of care. Hospital Course Hospital Course Hospital Course: 72-year-old female with COPD, home oxygen dependent at 2L, greater than 100 pack year smoking history, CKD, DM and Hypertension presents due to shortness of air outside her normal and cough worse than her normal associated with feeling ill and low grade fevers - Right lower lobe pneumonia - COPD exacerbation Initially presented with pneumonia on imaging findings. Started on broad-spectrum antibiotics. Weaned off IV antibiotics to oral Levaquin today to complete 7 days total of antibiotics for pneumonia and UTI. Able to wean off oxygen temporarily during the day today.? Continue supplemental oxygen with goal saturation greater 90%, recommend wearing at night per her home regimen. Continue levofloxacin daily for pneumonia, continue DuoNebs every 4 hours as needed, continue guaifenesin for cough Cultures obtained, still pending. - UTI - ZOE Urinalysis grossly abnormal, urine culture pending Creatinine 1.1 on labs today.? ZOE resolved.? No further IV fluids at this time as patient appears volume overloaded with her edema - Heart failure with preserved ejection fraction - Volume overload Diuresing daily with 1 mg of Bumex.? Having good response, improvement in peripheral edema.? Kidney function stable.? Breathing better with diuresis. Volume overload/edema multifactorial.? Review of patient's chart shows that she has a diagnosis of cirrhosis, last seen on CT in 2019. Continue lisinopril and nadolol. - Cirrhosis: Appears compensated.? MELD 8-12 depending on timing of labs used for calculation.? Needs to follow with hepatology/GI after discharge. - Diabetes: will place on High Sliding Scale with steroids and basal dosing; A1c pending - Hypertension: Will continue home regime including diuretics in setting of edema - Tobacco Abuse: Highly encouraged cessation; no desire to quit at this time, asking for a cigarette. Placing on pharmacological intervention PT and OT evaluated patient, recommended half-way placement for rehab. Patient graciously excepted by [facility]. Controlled substance prescription sent electronically to [facility]. Other new medications to continue are Bumex 1 mg daily and Levaquin 500 mg once a day for 5 more days starting 11/09/2022 Exam Data for Last 24 hours Vital signs and Labs for Last 24 Hours: Temp Pulse Resp BP Pulse Ox 97.8 F 65 20 135/59 L 95 11/08/22 04:00 11/08/22 04:00 11/08/22 04:00 11/08/22 04:00 11/08/22 04:00 Laboratory Results - last 24 hr 11/07/22 06:28: Troponin I < 0.01 11/07/22 06:28: WBC 7.8 D, RBC 3.38 L, Hgb 9.4 L, Hct 28.9 L, MCV 85.5, MCH 27.7, MCHC 32.4, RDW 16.0, Plt Count 152, MPV 10.1, Neut % (Auto) 67.3, Lymph % (Auto) 23.4, [place] % (Auto) 8.3, Eos % (Auto) 0.5, Baso % (Auto) 0.4, Neut # (Auto) 5.2, Lymph # (Auto) 1.8, [place] # (Auto) 0.7, Eos # (Auto) 0.
[2022-11-08 08:00] VITALS: BP 145/65; PULSE 73; RESP 18; TEMP 36.9; O2SAT 96
[2022-11-08 08:06] LABS: INR 1.06 (0.9-1.1); Prothrombin Time 11.4 seconds (10.1-12.5)
--- NOTE | 2022-11-08 09:54 | EXP.ACUTE.PN ---
Subjective *Date: 11/08/22 *Time: 14:37 Interval history: Patient did well overnight. Is actually in bedside chair this morning with the assistance of therapy. On room air. To bathroom throughout the night due to diuretic usage. Denies chest pain, nausea, vomiting, diarrhea. No fever. Hemodynamically stable. Medical Exam Vital signs and Labs for Last 24 Hours: Vital Signs Temp Pulse Pulse Resp BP Pulse Ox 11/08/22 08:00 98.4 F 73 18 145/65 H 96 11/08/22 04:00 97.8 F 65 20 135/59 L 95 11/07/22 23:51 97.9 F 67 20 129/67 98 11/07/22 19:35 97.9 F 65 18 125/81 99 11/07/22 15:18 98.0 F 65 18 141/44 H 98 11/07/22 12:00 70 11/07/22 11:58 97.8 F 63 18 123/46 L 97 Intake and Output 11/07/22 11/08/22 11/08/22 23:59 07:59 15:59 Intake Total 480 / 1578 240 / 240 Output Total 0 / 0 0 / 0 Balance 480 / 1578 240 / 240 Intake: Intake, Oral Amount 480 / 1080 240 / 240 Output: Output, Urine Amount 0 / 0 0 / 0 Other: Number of Voids 0 Number of Unmeasured Voids 2 1 Weight 110.875 kg Patient Weight 11/08/22 23:59 Weight 110.875 kg Laboratory Results - last 24 hr 11/07/22 06:28: Hemoglobin A1c 10.3 H 11/07/22 11:49: POC Glucose 200 H 11/07/22 15:54: POC Glucose 200 H 11/07/22 20:39: POC Glucose 275 H 11/08/22 05:24: POC Glucose 219 H 11/08/22 05:38: WBC 4.7 L D, RBC 3.24 L, Hgb 9.1 L, Hct 28.4 L, MCV 87.8, MCH 28.0, MCHC 31.9, RDW 15.7, Plt Count 155, MPV 8.9, Neut % (Auto) 55.1, Lymph % (Auto) 37.3, Maries % (Auto) 6.1, Eos % (Auto) 1.0, Baso % (Auto) 0.5, Neut # (Auto) 2.6, Lymph # (Auto) 1.7, Maries # (Auto) 0.3, Eos # (Auto) 0.1, Baso # (Auto) 0.0 11/08/22 05:38: Sodium 135 L, Potassium 3.9, Chloride 99, Carbon Dioxide 33 H, Anion Gap 6.9, BUN 21 H, Creatinine 1.10 H, Estimated Creat Clear 34, Estimated GFR 49 L, Est GFR ( Amer) 59, Glucose 201 H D, Calcium 8.6, Magnesium 1.7, Total Bilirubin 0.3, AST 24, ALT 15, Alkaline Phosphatase 164 H, Total Protein 6.2 L, Albumin 3.2 L, Globulin 3.0, Albumin/Globulin Ratio 1.1 11/08/22 07:38: PT 11.4, INR 1.06 I & O for Labs for Last 24 Hours: Intake & Output 11/05/22 11/06/22 11/07/22 11/08/22 23:59 23:59 23:59 23:59 Intake Total 1578 / 1578 240 / 240 Output Total 0 / 0 0 / 0 Balance 1578 / 1578 240 / 240 Weight 117.934 kg 110 kg 110.875 kg Microbiology Reports for the Last 24 Hours: Microbiology 11/06/22 02:05 Urine,Catheterized Urine Culture - Preliminary 11/07/22 23:06 Sputum - Expectorated Sputum Gram Stain - Final Constitutional: Present no acute distress, morbidly obese and chronically ill appearing Head: Present atraumatic and normocephalic ENT: Present normal exam Neck: Present normal inspection Respiratory: Present prolonged expiratory phase, distant breath sounds, diminished air movement and normal respiratory effort; Absent accessory muscle use, rhonchi, wheezes or crackles Cardiac: Present Reg Rate and Rhythm GI: Present soft; Absent distention, tenderness or guarding Extremities: Present edema (Improving peripheral edema, 2+ with wrinkling of the skin today on bilateral lower extremity) Comment:: No active weeping from left lower Skin: Present erythema (Bilateral lower extremity consistent with venous stasis changes, improving, no weeping today) and dry; Absent cyanosis or pallor Neuro: Present Cranial Nerve 2-12 Intact, Grossly Intact, alert, awake, oriented x 3 and moves all extremities Assessment and Plan *Assessment and plan (1) Right lower lobe pneumonia: Status: Acute Category: Medical Code(s): J18.9 - Pneumonia, unspecified organism (2) UTI (urinary tract infection): Status: Acute Category: Medical Code(s): N39.0 - Urinary tract infection, site not specified (3) ZOE (acute kidney injury): Status: Resolved Category: Medical Code(s): N17.9 - Acute kidney failure, unspecified (4) COPD exacerbatio
[2022-11-08 12:00] VITALS: BP 162/59; PULSE 67; RESP 18; TEMP 36.6; O2SAT 94
--- NOTE | 2022-11-08 15:45 | PC.NURSE ---
report called to [facility]. waiting on son to arrive to transport pt
[2022-11-08 17:08] LABS: POC Glucose,Bedside 197 (70-110)
[2022-11-09 13:59] LABS: Body Fluid Culture, Sterile Not indicated. (.); Organism ID Not indicated. (.); Specimen Source Urine (.); Streptococcus pneumoniae Ag Negative (Negative)
[2022-11-09 16:41] LABS: Legionella pneumophila Urinary Negative (Negative)
== END 2022-11-08 17:50 ==
LOC: ER 11-07 01:02 → 2ND 11-07 01:26
PROVIDERS: Nurse Practitioner Family; Admitting Provider Internal Medicine Adolescent Medicine; Emergency Provider Emergency Medicine; PCP Family Medicine; Visit Provider Internal Medicine Adolescent Medicine
DX: J44.1 Chronic obstructive pulmonary disease with (acute) exacerbation (principal); J18.9 Pneumonia, unspecified organism; E11.9 Type 2 diabetes mellitus without complications; I10 Essential (primary) hypertension; N17.9 Acute kidney failure, unspecified; F17.210 Nicotine dependence, cigarettes, uncomplicated; Z79.4 Long term (current) use of insulin; Z79.899 Other long term (current) drug therapy; Z99.81 Dependence on supplemental oxygen; N39.0 Urinary tract infection, site not specified; K74.60 Unspecified cirrhosis of liver; R06.09 Other forms of dyspnea; Z20.822 Contact with and (suspected) exposure to COVID-19
CPT/HCPCS: G0378; 36415; 71045; 80053; 81001; 82803; 82962; 83036; 83605; 83735; 83880; 84145; 84484; 85025; 85610; 85651; 86140; 87040; 87070; 87086; 87088; 87186; 87205; 87899; 93005; 93306; 94640; 97116; 97166; 97530; 97535; 99285; C9803; J1956; U0003; U0005

== ENCOUNTER 2022-11-22 08:05 | Day surgery (SDC) | payer MEDICARE, MEDICAID, SELFPAY ==
[2022-11-17 14:11] VITALS: BMI 43.5
[2022-11-22] VITALS (9 sets, daily range): BP systolic 135–162; BP diastolic 53–80; PULSE 62–76; RESP 16–19; TEMP 36.3–36.6; O2SAT 92–100
[2022-11-22 09:03] LABS: POC Glucose,Bedside 163 (70-110)
== END 2022-11-22 10:44 | disposition home or self-care (01) ==
LOC: OR 08:07
PROVIDERS: PCP Family Medicine; Visit Provider Ophthalmology
DX: E11.36 Type 2 diabetes mellitus with diabetic cataract (principal); H59.88 Other intraoperative complications of eye and adnexa, not elsewhere classified; F17.210 Nicotine dependence, cigarettes, uncomplicated; Z79.899 Other long term (current) drug therapy
CPT/HCPCS: 66984; 82962; V2632

== ENCOUNTER 2025-06-02 08:57 | Outpatient (CLI) | payer MEDICARE, MEDICAID, SELFPAY ==
--- OUTSIDE RECORDS SUMMARY | 2025-03-28 05:50 | XMS_ITS | Continuity of Care Document ---
Author Organization [address] [place] [address] [address] [place] [address] Phone Care Team Providers [facility] Demonstrator Name Role Phone Tucker HARLEYAida Ulloa Unavailable [...] Call Periodic Oral Evaluation Reline Complete Man Ford Chair Adjust Complete Denture Maxil Compsve Oral Eval- New/Est Pat Complete Series Of Radiographic Images N Replace Broken Teeth-Per Tooth 23 FUNDUS PHOTOGRAPHY EYE EXAM NEW PATIENT Advance Directives Directive Yes / No Effective Date File Name No Information Encounters Encounter Description Practice Location Reason(s) For Visit Diagnoses Date Provider Providers Copied on Encounter [address] [place] [address], [address] [facility] [address], [place], [id number], tel:[phone] [facility] Encounter for dental examination and cleaning without abnormal findings Tucker Parra. [address] [facility], [address], [place], [place], [id number], . tel:[phone] Referring Provider: Arabella Jonas. [address] [place] [address], [address] [facility] [address], [place], [place], [id number], tel:[phone] [facility] Encounter for fitting and adjustment of dental prosthetic deviceEncount er for dental examination and cleaning without abnormal findings 4 Guille Polanco. . Referring Provider: Arabella Jonas. [address] [place] [address], [address] [facility], [place], [place], [id number], tel:[phone] [facility] Encounter for dental examination and cleaning without abnormal findingsEncou nter for fitting and adjustment of dental prosthetic device 4 Deann Rhodes. [address] [facility], [address], [place], [place], [id number], [place]. tel:[phone] Referring Provider: Arabella Jonas. [address] [place] [address], [address] [facility], [place], [place], [id number], [place] tel:[phone] [facility] No Information 4 Jose Elias Trammell. [address] [facility], [place], [address], [place]. tel:[phone] [place] [address], [address] [facility], [place], [place], [id number], [place] tel:[phone] [facility] Encounter for dental examination and cleaning without abnormal findingsEncou nter for fitting and adjustment of dental prosthetic device 3 Gonzales Smith. [address] [facility], [address], [place], [place], [id number], [place]. tel:[phone] Referring Provider: Arabella Jonas. [address] [place] [address], [address] [facility], [place], [place], [id number], [place] tel:[phone] [facility] Diabetic eye exam (chief complaint) Type 2 diabetes mellitus without complications Vitreous degeneration, left eye 3 Herminio Betancourt. , [place]. Referring Provider: Arabella Jonas. Family History Family Member Type Diagnosis Age At Onset No Information Payers Payer name Insurance type Covered alliance party ID Authoriza tion(s) DDS [employer] Medicare Adv ZZ [id number] DDS Medicaid [facility] [id number] Social History Type Description Quantity Date Captured Comments Sex Female Smoking Status No Information Chief Complaint And Reason For Visit No Information Reason For Referral Reason For Referral No Information Plan Of Treatment Date Type Action Status Appointment Ambar Fenrandez BOOKED Appointment Ambar Fernandez BOOKED Patient Education [...] No Information Instructions Date Instruction Additional Infor matrobert Return in 12-15 vernell hs for dilated [...]
[2025-06-02 09:18] LABS: Hematocrit 28.5 % (37.0-47.0); Hemoglobin 8.4 g/dL (12.2-16.2); Immature Granulocytes % 0.5 %; Mean Corpuscular HGB Conc 29.5 g/dL (31.8-35.4); Mean Corpuscular Hemoglobin 27.5 pg (27.0-31.2); Mean Corpuscular Volume 93.1 fl (81-99); Nucleated Red Blood Cells % 0 %; Platelet Count 137 K/mm3 (142-424); Red Blood Count 3.06 M/mm3 (4.20-5.40); Red Cell Distribution Width-SD 48.9 fL; White Blood Count 5.9 K/mm3 (4.8-10.8)
--- OUTSIDE RECORDS SUMMARY | 2025-06-02 09:32 | XMS_ITS | Clinical Summary ---
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 Name Role Phone Marylou Werner MD [phone] [ ] Conditions or Problems Problem Name Problem Code Onset Date Status Entry Date Provider Comment Standard Description Annotate GERD 298456228 (SNOMED CT) 12/09 Active 12/09 Joshua Schmid MD Gastroesophageal reflux disease Tobacco abuse 24614803 (SNOMED CT) 12/09 Active 12/09 Joshua Schmid MD Tobacco dependence syndrome Diarrhea 12676012 (SNOMED CT) 12/08 Active 12/08 Chantell White Diarrhea Diabetes mellitus type II 43253693 (SNOMED CT) 12/08 Active 12/08 Chantell White Type 2 diabetes mellitus Acute pulmonary blastomycosis 049081828 (SNOMED CT) 12/08 Active 12/08 Chantell White Acute pulmonary blastomycosis Chronic pulmonary blastomycosis 036434240 (SNOMED CT) 12/08 Active 12/08 Chantell White Chronic pulmonary blastomycosis Medications Medication Instructions Start Date Stop Date Generic Name NDC Provider GLIPIZIDE 10 MG TABS take twice daily 05/09 GLIPIZIDE [id number] Joshua Schmid MD ITRACONAZOLE 100 MG CAPS Take two by mouth twice daily. 8 ITRACONAZOLE 88792613659 Joshua Schmid MD ITRACONAZOLE 100 MG CAPS take 2 po bid ITRACONAZOLE 85339805255 Joshua Schmid MD ITRACONAZOLE 100 MG CAPS Take two by mouth twice daily. 0/10 ITRACONAZOLE 54193290030 Joshua Schmid MD LEVOTHYROXINE SODIUM 50 MCG TABS daily 12/22 LEVOTHYROXINE SODIUM 50580864531 Tanisha L GNP OMEPRAZOLE 20 MG TBEC twice daily 12/22 OMEPRAZOLE 30141784400 Tanisha L SYMBICORT 80-4.5 MCG/ACT AERO 2 puffs twice daily BUDESONIDE-FORMO TEROL FUMARATE 56908992863 Marylou Martinez RN SPIRIVA HANDIHALER 18 MCG CAPS daily TIOTROPIUM BROMIDE MONOHYDRATE 96562744812 Marylou Martinez RN SINGULAIR 10 MG TABS daily MONTELUKAST SODIUM 88723047140 Marylou Martinez RN FLONASE ALLERGY RELIEF 50 MCG/ACT SUSP daily FLUTICASONE PROPIONATE 66157057322 Marylou Martinez RN DALIRESP 500 MCG TABS daily ROFLUMILAST 49694149590 Marylou Martinez RN DUTOPROL 25-12.5 MG ORAL TABLET EXTENDED RELEASE 24 HOUR daily METOPROLOL-HYDRO CHLOROTHIAZIDE 77702494116 Marylou Martinez RN REQUIP 4 MG ORAL TABLET 4 mg daily ROPINIROLE HCL 90655534488 Marylou Martinez RN KLOR-CON 10 10 MEQ CR-TABS twice daily POTASSIUM CHLORIDE 76178258666 Marylou Martinez RN GNP OMEPRAZOLE 20 MG TBEC twice daily 12/22 OMEPRAZOLE 64739053580 Marylou Martinez RN METOCLOPRAMIDE HCL 5 MG TABS one tab three times daily METOCLOPRAMIDE HCL 60533892573 Marylou Martinez RN PIOGLITAZONE HCL-METFORMIN HCL 15-850 MG TABS twice daily PIOGLITAZONE HCL-METFORMIN HCL 83662404983 Marylou Martinez RN MOBIC 15 MG ORAL TABLET daily MELOXICAM 87717844080 Marylou Martinez RN LISINOPRIL 20 MG TABS daily LISINOPRIL 29045319989 Marylou Martinez RN LEVOTHYROXINE SODIUM 50 MCG TABS daily 0 12/22 LEVOTHYROXINE SODIUM 27995191477 Marylou Martinez RN FLORICAL TABS 60mg daily SOD FLUORIDE-CA CARBONATE TABS 09908894185 Marylou Martinez RN GLIPIZIDE 10 MG TABS take twice daily 0 05/09 GLIPIZIDE 56602559850 Angela A GABAPENTIN 600 MG TABS take 2 tablets twice daily GABAPENTIN 58335221315 Angela A FUROSEMIDE 40 MG TABS take once daily as needed FUROSEMIDE 05530760986 Angela A ITRACONAZOLE 100 MG CAPS 1 po qid 0 3 ITRACONAZOLE 45999642321 Angela A DALIRESP 500 MCG TABS 1 po qd 0 3 ROFLUMILAST 03972085885 Angela A PROAIR HFA 108 (90 Base) MCG/ACT INHALATION AEROSOL SOLUTION 0 3 ALBUTEROL SULFATE 47143081395 Angela A SPIRIVA HANDIHALER 18 MCG CAPS 1 po qd 0 3 TIOTROPIUM BROMIDE MONOHYDRATE 42932978622 Angela A SYMBICORT 80-4.5 MCG/ACT AERO 0 3 BUDESONIDE-FORMO TEROL FUMARATE 19213854229 Angela A DOXYCYCLINE MONOHYDRATE 100 MG CAPS 0 3 DOXYCYCLINE MONOHYDRATE 83873803494 Angela A GLIPIZIDE 10 MG TABS 1 po bid 0 3 GLIPIZIDE 31212452755 Angela A ACTOPLUS MET 15-850 MG TABS 1 po bid 0 3 PIOGLITAZONE HCL-METFORMIN HCL 48158354299 Angela A OXYBUTYNIN CHLORIDE ER 10 MG [id number] 1 po qd 0 3 OXYBUTYNIN CHLORIDE 83881816479 Angela A DELTASONE 20 MG ORAL TABLET 0 3 PREDNISONE 79195705120 Angela A FUROSEMIDE 40 MG TABS 1 po bid 0 3 FUROSEMIDE 21950808313 Angela A METOPROLOL TARTRATE 25 MG TABS 1 po qd 0 3 METOPROLOL TARTRATE 48508314617 Angela A AZITHROMYCIN 250 MG TABS 0 3 AZITHROMYCIN 58584394559 Angela A ANTI-DIARRHEAL 2 MG CAPS 0 3 LOPERAMIDE HCL 29563561374 Angela A FUROSEMIDE 40 MG TABS 1 po qd 0 3 FUROSEMIDE 72590702773 Angela A GABAPENTIN 600 MG TABS 1 po qid 0 3 GABAPENTIN 16533289856 Angela A LISINOPRIL 20 MG TABS 1 po qd 0 3 LISINOPRIL 40179768493 Angela A [facility] OMEPRAZOLE 20.6 (20 Base) MG ORAL CAPSULE DELAYED RELEASE 1 po bid 0 3 OMEPRAZOLE MAGNESIUM 17498728627 Angela A FLUOXETINE HCL (PMDD) 20 MG ORAL CAPSULE 1 po tid 0 3 FLUOXETINE HCL (PMDD) 93730480432 Angela A MONTELUKAST SODIUM 10 MG TABS 1 po qd 0 3 MONTELUKAST SODIUM 45273341769 Angela A DALIRESP 500 MCG TABS 1 po qd 0 304 ROFLUMILAST 73958257626 Angela A MELOXICAM 15 MG TABS 1 po qd 0 3 MELOXICAM 33200380636 Angela A REQUIP 4 MG ORAL TABLET 1 po qd 0 3 ROPINIROLE HCL 21968749681 Angela A ITRACONAZOLE 100 MG CAPS 0 3 ITRACONAZOLE 26332321985 Angela A ACTOPLUS MET 15-850 MG TABS 1 po bid 0 304 PIOGLITAZONE HCL-METFORMIN HCL 90963264998 Angela A METOCLOPRAMIDE HCL 5 MG TABS 1 po qid 0 304 METOCLOPRAMIDE HCL 00166034133 Angela A OXYBUTYNIN CHLORIDE ER 10 MG [id number] 1 po qd 0 3 OXYBUTYNIN CHLORIDE 46198102982 Angela A PROAIR HFA 108 (90 Base) MCG/ACT INHALATION AEROSOL SOLUTION 0 304 ALBUTEROL SULFATE 35791285543 Angela A SPIRIVA HANDIHALER 18 MCG CAPS 1 po qd 0 304 TIOTROPIUM BROMIDE MONOHYDRATE 56483138604 Angela A SYMBICORT 80-4.5 MCG/ACT AERO 0 304 BUDESONIDE-FORMO TEROL FUMARATE 63174511186 Angela A METOPROLOL TARTRATE 25 MG TABS 1 po qd 0 304 METOPROLOL TARTRATE 67887634116 Angela A FUROSEMIDE 40 MG TABS 1 po qd 0 3/04 FUROSEMIDE 28762987822 Angela A GLIPIZIDE 10 MG TABS 1 po bid 0 3/04 GLIPIZIDE 83018373149 Angela A LEVO-T 50 MCG TABS 1 po qd 0 3/04 LEVOTHYROXINE SODIUM 92818344595 Angela A LEVO-T 50 MCG TABS 1 po qd 0 3/04 LEVOTHYROXINE SODIUM 81707322260 Stefany G GLIPIZIDE 10 MG TABS 1 po bid 0 3/04 GLIPIZIDE 57363885317 Stefany G FUROSEMIDE 40 MG TABS 1 po qd 0 304 FUROSEMIDE 26247904055 Stefany G METOPROLOL TARTRATE 25 MG TABS 1 po qd 0 3/04 METOPROLOL TARTRATE 15671387676 Stefany G SYMBICORT 80-4.5 MCG/ACT AERO 0 3/04 BUDESONIDE-FORMO TEROL FUMARATE 48200709588 Stefany G SPIRIVA HANDIHALER 18 MCG CAPS 1 po qd 04/08 TIOTROPIUM BROMIDE MONOHYDRATE 65463202933 Stefany Petersen PROAIR HFA 108 (90 Base) MCG/ACT INHALATION AEROSOL SOLUTION 0 3 ALBUTEROL SULFATE 28995914739 Stefany Petersen OXYBUTYNIN CHLORIDE ER 10 MG [id number] 1 po qd 11/16 OXYBUTYNIN CHLORIDE 99183555153 Stefany Petersen METOCLOPRAMIDE HCL 5 MG TABS 1 po qid 0 3 METOCLOPRAMIDE HCL 70514989400 Stefany Petersen ACTOPLUS MET 15-850 MG TABS 1 po bid 0 3 PIOGLITAZONE HCL-METFORMIN HCL 23568710086 Stefany Petersen ITRACONAZOLE 100 MG CAPS ITRACONAZOLE 21630552561 Stefany Petersen REQUIP 4 MG ORAL TABLET 1 po qd 0 07/06 ROPINIROLE HCL 93660132426 Stefany Petersen MELOXICAM 15 MG TABS 1 po qd 0 3 MELOXICAM 61220928574 Stefany Petersen DALIRESP 500 MCG TABS 1 po qd 12/05 ROFLUMILAST 49644550808 Stefany Petersen MONTELUKAST SODIUM 10 MG TABS 1 po qd 0 3 MONTELUKAST SODIUM 89993327080 Stefany Petersen FLUOXETINE HCL (PMDD) 20 MG ORAL CAPSULE 1 po tid 0 3 FLUOXETINE HCL (PMDD) 17260058565 Stefany Petersen [facility] OMEPRAZOLE 20.6 (20 Base) MG ORAL CAPSULE DELAYED RELEASE 1 po bid 0 3 OMEPRAZOLE MAGNESIUM 08474572863 Stefany Petersen LISINOPRIL 20 MG TABS 1 po qd 12/05 LISINOPRIL 83905059003 Stefany Petersen GABAPENTIN 600 MG TABS 1 po qid 0 3 GABAPENTIN 22595720864 Stefany Petersen FUROSEMIDE 40 MG TABS 1 po qd 3 FUROSEMIDE 78352457067 Stefany Petersen ANTI-DIARRHEAL 2 MG CAPS 3 LOPERAMIDE HCL 65515605622 Stefany Petersen AZITHROMYCIN 250 MG TABS 0 04/08 AZITHROMYCIN 74470698862 Stefany Petersen METOPROLOL TARTRATE 25 MG TABS 1 po qd 0 3 METOPROLOL TARTRATE 97416087146 Stefany Petersen FUROSEMIDE 40 MG TABS 1 po bid 0 3 FUROSEMIDE 88060390314 Stefany Petersen DELTASONE 20 MG ORAL TABLET 02/14 PREDNISONE 09742152604 Stefany Petersen OXYBUTYNIN CHLORIDE ER 10 MG [id number] 1 po qd 11/16 OXYBUTYNIN CHLORIDE 03209463343 Stefany Petersen ACTOPLUS MET 15-850 MG TABS 1 po bid 0 3 PIOGLITAZONE HCL-METFORMIN HCL 95434939795 Stefany Petersen GLIPIZIDE 10 MG TABS 1 po bid 0 3 GLIPIZIDE 51642328373 Stefany Petersen DOXYCYCLINE MONOHYDRATE 100 MG CAPS 0 3 DOXYCYCLINE MONOHYDRATE 01088302711 Stefany Petersen SYMBICORT 80-4.5 MCG/ACT AERO 0 3 BUDESONIDE-FORMO TEROL FUMARATE 25433798367 Stefany Petersen SPIRIVA HANDIHALER 18 MCG CAPS 1 po qd 0 7 TIOTROPIUM BROMIDE MONOHYDRATE 39869840020 Stefany Petersen PROAIR HFA 108 (90 Base) MCG/ACT INHALATION AEROSOL SOLUTION 0 3/ ALBUTEROL SULFATE 28456615098 Stefany Petersen DALIRESP 500 MCG TABS 1 po qd 12/05 ROFLUMILAST 58360145228 Stefany Petersen ITRACONAZOLE 100 MG CAPS 1 po qid 0/10 ITRACONAZOLE 56219807487 Stefany G Medications Administered No information available. Allergies, Adverse Reactions, Alerts Allergy Name Reaction Description Start Date Severity Statu s Provider TYLOX rash Moderate Active Stefany G PERCOCET itch Moderate Active Stefany G Results Date Name Value Unit Range Flag Description Lab Report: CBC w Auto Diff IMM GRANU % 0.6 % 0.0-0.6 N Immature granulocytes/100 leukocytes in Blood BASOPHIL % 0.2 % 0.0-1.0 N Basophils/ 100 leukocytes in Blood by Manual count % EOS AUTO 1.1 % 0.0-3.0 N Eosinophil s/100 leukocytes in Blood by Automated count MONOCYTE BF 6.0 % 0.0-12.0 N monocyte s as percent of body fluid leukocytes LYMPHOCY BF 34.5 % 24.0-44.0 N lymphoc ytes as percent of body fluid leukocytes NEUTROP BF 57.6 % 41.0-71.0 N Neutroph ils/100 leukocytes in Body fluid BASOABSOLMAN 0.02 K/MCL {Cells}/ uL 0.00-0.20 N basophils, absolute, manual EOS ABSLT 0.13 10*3/uL 0.10-0.30 N Eosinophi ls [#/volume] in Blood MONOCYTABMAN 0.74 K/MCL {Cells}/ uL 0.00-1.00 N monocytes, absolute, manual LYMPHSABSMAN 4.25 K/MCL {Cells}/ uL 0.60-4.80 N lymphocytes, absolute, manual ABS NEUTROPH 7.12 10*3/uL 1.50-8.30 N Neutro phils [#/volume] in Blood PLATELETS 234 10*3/mm3 150-450 N Platelets [#/volume] in Blood by Automated count RDW_ 14.6 11.3-14.5 H RDW, no uni ts MCHC 32.1 G/DL 32.0-36.0 N MCHC [Mass/ volume] by Automated count MCH 27.6 pg 27.0-31.0 N MCH [Entiti c mass] by Automated count MCV 85.8 fL 80.0-99.0 N MCV [Entiti c volume] by Automated count HCT 39.2 % 34.5-44.0 N Hematocrit [Volume Fraction] of Blood by Automated count HGB 12.6 g/dL 11.5-15.5 N Hemoglobin [Mass/volume] in Blood RBC 4.57 M/MCL 10*6/mm3 3.89-5.14 N Erythro cytes [#/volume] in Blood by Automated count WBC 12.33 10*3/mm3 3.50-10.8 0 H Leukocytes [#/volume] in Blood by Automated count Lab Report: COMPREHENSIVE ME TABOLIC PANEL ANIONGAP 6.0 mmol/L 3.0-11.0 anion gap, serum BUN/CREAT 18.6 7.0-25.0 Urea nitrogen/Creatinine [Mass Ratio] in Serum or Plasma [id number] 1.6 g/dL GE use only - for [employer] import when terms are not otherwise specified GFRC 83 mL/min/1 .73m2 >60 Glomerular Filtration Rate Calculation BILI TOTAL 0.4 mg/dL 0.3-1.2 Bilirubin. total [Mass/volume] in Serum or Plasma ALK PHOS 108 U/L 25-100 H Alkaline [place] sphatase [Enzymatic activity/volume] in Blood SGOT (AST) 48 U/L 0-33 H Aspartate aminotransferase [Enzymatic activity/volume] in Serum or Plasma SGPT (ALT) 23 U/L 7-40 Alanine aminotransferase [Enzymatic activity/volume] in Serum or Plasma ALBUMIN 3.90 g/dL 3.20-4.80 Albumin [Mass/volume] in Serum or Plasma PROTEIN, TOT 6.4 g/dL 5.7-8.2 Protein [Mass/volume] in Serum or Plasma CALCIUM 9.7 mg/dL 8.7-10.4 Calcium [Moles/volume] in Serum or Plasma CO2 31.0 mmol/L 20.0-31.0 Carbon diox jennifer, total [Moles/volume] in Venous blood CHLORIDE 103 mmol/L 99-109 Chloride [Moles/volume] in Serum or Plasma POTASSIUM 5.3 mmol/L 3.5-5.5 Potassium [Moles/volume] in Serum or Plasma SODIUM 140 mmol/L 132-146 Sodium [Moles/volume] in Serum or Plasma CREATININE 0.70 mg/dL 0.60-1.30 Creatini ne [Mass/volume] in Serum or Plasma BUN 13 mg/dL 9-23 Urea nitrogen [Mass/volume] in Serum or Plasma GLUCOSE SER 98 mg/dL 70-100 Glucose [Mass/volume] in Serum or Plasma Office Visit: Room #6 MEDS REVIEW Done Documenta tion of current medications (procedure) ORALTOBACUSE Never Tobacco smoking status SMOK ADVICE yes Smoking c essation education (procedure) CIGARET SMKG yes Tobacco smoking status SMOK STATUS Current every day smoker Tobacco smoking status Plan of Care Type Date Detail Pending order Hepatitis C Atb: (ICD 10 Code: Z11.59) Pending order CMP Pending order Itraconazole Lev el Pending order CMP Pending order Itraconazole Lev el Pending order Itraconazole Lev el Pending order Itraconazole Lev el Pending order CMP Pending order CBC with Differe ntial Pending order Itraconazole Lev el Pending order C-Diff PCR Patient education Medications Procedures Code Procedure Name Date Entry Date 82952 Hepatitis C Atb: (ICD 10 Code: Z11.59) 20 23/04/29 CPT-25079 CMP CPT-83779 Itraconazole Level 4 CPT-29973 CMP CPT-22967 Itraconazole Level 8 CPT-91358 Itraconazole Level 6 CPT-07373 Itraconazole Level 6 CPT-84805 CMP [id number] CBC with Differential 2015 CPT-83189 Itraconazole Level 3 CPT-cdpcr C-Diff PCR Vital Signs Date Name Value Unit Description BMI (Body Mass Index) 34.79 kg/m2 Bod y Mass Index (Ratio) Body Temperature 97.4 [degF] temperat ure E&M BP Diastolic 68 mm[Hg] blood pressu re, diastolic BP Systolic 126 mm[Hg] blood pressur e, systolic Heart Rate 76 /min pulse rate Respiratory Rate 16 /min respirat ory rate E&M Weight Measured 196.4 [lb_av] weight E& M Weight Measured 196.4 [lb_av] weight E& M Height 63 [in_us] height E&M Immunizations Vaccine Administration Date Standard Description CVX Co de Dose Prevnar Intramuscular Suspension 16 MCG/0.5ML Prevnar Intramuscular Suspension 16 MCG/0.5ML 100 Unknown Advance Directives Directive Description Start Date DURABLE POWER OF [employer]AL [employer] LIVING WILL ON FILE
--- OUTSIDE RECORDS SUMMARY | 2025-06-02 09:32 | XMS_ITS | Clinical Summary ---
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 Active cetirizine (ZyrTEC) 10 MG tablet cetirizine 10 mg tablet TAKE 1 TABLET EVERY DAY 05/06/20 22 Active cholecalciferol, vitamin D3, 1,250 mcg (50,000 unit) capsule cholecalciferol (vitamin D3) 1,250 mcg (50,000 unit) capsule TAKE 1 CAPSULE TWICE A MONTH Active roflumilast (DALIRESP) 500 mcg tablet Take 1 tablet (500 mcg total) by mouth in the morning. Active famotidine (PEPCID) 40 MG tablet famotidine 40 mg tablet TAKE 1 TABLET (40 MG) BY ORAL ROUTE 2 TIMES PER DAY Active fLUoxetine (PROzac) 20 MG capsule Take by mouth. Activ e gabapentin (NEURONTIN) 300 MG capsule 1 capsule (300 mg total) in the morning and 1 capsule (300 mg total) at noon and 1 capsule (300 mg total) in the evening. Active montelukast (SINGULAIR) 10 mg tablet 1 tablet (10 mg total) nightly. Active nadoloL (CORGARD) 20 MG tabletIndication s:hypertension Take 1 tablet (20 mg total) by mouth in the morning. Active insulin 70/30, insulin NPH-insulin regular, (NovoLIN 70-30 FlexPen U-100) 100 unit/mL (70-30) InPn insulin pen 25 Units in the morning and 25 Units at noon and 25 Units in the evening. Take before meals. Active oxybutynin (DITROPAN-XL) 10 MG 24 hr tablet Take 1 tablet (10 mg total) by mouth in the morning. Active rOPINIRole (REQUIP) 4 MG tablet Take 1 tablet (4 mg total) by mouth nightly. Active lisinopriL (PRINIVIL,ZESTRI L) 20 MG tablet Take 1 tablet (20 mg total) by mouth in the morning. 01/13/20 23 Active pantoprazole (PROTONIX) 40 MG tablet Take 1 tablet (40 mg total) by mouth in the morning. 01/19/20 23 Active venlafaxine HCl (venlafaxine XR) 75 mg TR24 Take 1 tablet by mouth in the morning. 01/20/20 23 Active acetaminophen (TYLENOL) 500 MG tablet Take 1 tablet (500 mg total) by mouth every 8 (eight) hours as needed for Pain. Active aspirin 81 MG EC tablet Take 1 tablet (81 mg total) by mouth in the morning. Active cilostazoL (PLETAL) 100 MG tabletIndication s:intermittent claudication Take 1 tablet (100 mg total) by mouth in the morning and 1 tablet (100 mg total) before bedtime. Active diclofenac 1 % Gel Apply 2 g topically in the morning and 2 g before bedtime. Activ e fluticasone propion-salmeter oL (ADVAIR) 250-50 mcg/dose diskus inhaler Inhale 1 puff by mouth via inhaler every 12 (twelve) hours Rinse mouth after use. Active fluticasone propionate (FLONASE) 50 mcg/actuation nasal spray 2 sprays by Nasal route in the morning. Active glipiZIDE (GLUCOTROL) 5 MG tablet Take 1 tablet (5 mg total) by mouth in the morning. Active umeclidinium (Incruse Ellipta) 62.5 mcg/actuation DsDv powder for inhalation Inhale 1 puff by mouth via inhaler in the morning. Active insulin glargine (LANTUS, SEMGLEE) 100 unit/mL injection Inject 50 Units subcutaneously nightly Use as directed. Active ferrous sulfate 325 (65 FE) MG EC tablet Take 1 tablet (325 mg total) by mouth in the morning and 1 tablet (325 mg total) in the evening. Take before meals. Active cholestyramine (QUESTRAN) 4 gram powder Take by mouth every 6 (six) hours as needed (for diarrhea). Active calcium carbonate (TUMS) 500 mg chewable tablet Take 2 tablets (1,000 mg total) by mouth every 6 (six) hours as needed for Heartburn (upset stomach). Active ondansetron (ZOFRAN) 4 MG tablet Take 1 tablet (4 mg total) by mouth every 8 (eight) hours as needed for Nausea. Active Active Problems Problem Noted Date Diagnosed Date CKD (chronic kidney disease) 02/06/2023 COPD (chronic obstructive pulmonary disease) Type 2 diabetes mellitus 02/01/2023 Depression 02/01/2023 Cirrhosis 02/01/2023 BUDDY (obstructive sleep apnea) 02/01/2023 CHF (congestive heart failure) 02/01/2023 Obesity 02/01/2023 Nicotine dependence 02/01/2023 Debility 02/01/2023 Resolved Problems Problem Noted Date Diagnosed Date Resolved Date Sepsis 02/01/2023 02/06/2023 Acute on chronic respiratory failure 02/01/2023 02/06/2023 ZOE (acute kidney injury) 02/01/2023 Hyponatremia 02/01/2023 02/06/2023 Blood loss anemia 02/01/2023 02/06/2023 GI bleed 02/01/2023 02/06/2023 Hyperkalemia 01/31/2023 02/06/2023 Melena 01/31/2023 02/06/2023 Overview (02/01/2023): Added automatically from request for surgery [id number] Social History Tobacco Use Types Packs/Day Years Used Date Smoking Tobacco: Every Day Cigarettes Alcohol Use Standard Drinks/Week Comments Not Currently 0 (1 standard drink = 0.6 oz pur e alcohol) PRAPARE - Transportation Answer Date Re corded In the past 12 months, has l ack of transportation kept you from medical appointments or from getting medications? No 02/06/2023 Lack of Transportation (Non-Medical) Not on file 02/06/2023 Food Insecurity Answer Date Recorded Food run out past 12 months Not on file 10/09 Food did not last past 12 months Not on file 10/27/2023 Employment Answer Date Recorded Help finding and keeping a job Not on file 0 10/27/2023 Family and Community Support Answer Taurus e Recorded Help with Day to Day Activities Not on file 10/27/2023 Feeling Lonely or Isolated Not on file 10/27 Educational Attainment Answer Date Garcia rded Speak language other than Nicaraguan at home Not on file 10/27/2023 Want help with school or training Not on file 10/27/2023 Substance Use Answer Date Recorded Used prescription meds for non-medical reasons N ot on file 10/27/2023 Used illegal drugs past 12 months Not on file 10/27/2023 Comments Unknown Sex and Gender Information Value Date Recorded Sex Assigned at Not on file Legal Sex Female 12:58 PM CDT Gender Identity Not on file Sexual Orientation Don't know 02/01/2023 7: 09 AM CDT Last Filed Vital Signs Vital Sign Reading Time Taken Comments Blood Pressure 123/51 02/06/2023 5:40 AM EDT Pulse 60 02/06/2023 5:40 AM EDT Temperature 36.6 C (97.9 F) 02/06/2023 5:40 AM EDT Respiratory Rate 16 02/06/2023 5:40 AM EDT Oxygen Saturation 96% 02/06/2023 8:26 AM EDT Inhaled Oxygen Concentration 32% 02/03/2023 8 :09 PM EDT Weight 107.2 kg (236 lb 5.3 oz) 023 12:32 AM EDT Height 157.5 cm (5' 2 ) 02/01/2023 12:3 2 AM EDT Body Mass Index 43.23 02/01/2023 12:32 AM EDT Plan of Treatment Health Maintenance Due Date Last Done Comments DXA SCAN 1950 Diabetic Kidney Health Evalu ation (KED) 1949 Diabetic Eye Exam 1959 Hepatitis C Screening 1967 DTAP/TDAP/TD VACCINES (1 - Tdap) 1968 Pneumococcal 50+ years (1 of 2 - PCV) 1968 Shingles Vaccine (Zoster) (1 of 2) 1999 Medicare Initial AWV [id number] 07/10/2023 Hemoglobin A1C 08/04/2023 02/02/2023 Tobacco Cessation Counseling and Screening (12+) 02/04/2024 02/03/2023 Respiratory Syncytial Virus (RSV) Adult or (1 - 1-dose 75+ series) 2024 COVID-19 VACCINE ( - 2023-2 5 season) 2024 11/02/2021, 12/10/2020, 11/12/2020, Additional history exists Falls Risk Screening 10/09/2024 Influenza Vaccine (#1) 2025 2, 06/30/2020, 07/12/2019 Procedures Procedure Name Priority Date/Time Associated Diagnosis Comments HEMOGLOBIN A1C Add-On 02/02/2023 3:00 AM EDT from Last 3 Months or Most Recently Relevant to Health Maintenance Results * Hemoglobin A1c (02/02/2023 3:00 AM EDT) Hemoglobin A1C 8.0 % 02/02/2023 11:14 AM EDT [facility] Comment: Hemoglobin A1C levels are related to mean glucose during the preceding 2-3 months. Less than 7% demonstrates glycemic control in diabetic patients. Hemoglobin AlC % Suggested Diagnosis > or = 6.5 Diabetic 5.7 - 6.4 Prediabetic <5.7 Non-diabetic eAVG Glucose 182.9 mg/dL 02/02/2023 11:14 AM EDT [facility] Blood Venipuncture / Unknown 02/02/2023 3:00 AM EDT 02/02/2023 3:05 AM EDT Marylou Werner MD LAB BLOOD ORDERABLES Final R esult [facility] [address] [phone] from Last 3 Months or Most Recently Relevant to Health Maintenance Insurance [employer] MEDICARE PPO MEDICAID OF [place] Advance Directives For more information, please contact: [phone] Documents on File Type Date Recorded Patient Outside Sales Inspector Expl anation Power of Typing Pool Supervisor 01/31/2023 * DNR - Limited Additional Intervention (Latest Code Status on File) Date Activated Date Inactivated Comments 01/31/2023 9:46 PM 02/06/2023 5:29 PM If no pulse: NO intervention If has pulse: NO Intubation. May use BiPAP/CPAP Call SMUDGER * Full Code Date Activated Date Inactivated Comments 01/31/2023 8:28 PM 01/31/2023 9:46 PM Healthcare Agents on File Name Relationship Healthcare Agent Relationshi p Communication Rafael Fernandez Son First Alternate Healthcare Decision-Maker Cony Rebecca [id number] Second Alternate Healthcare Decision-Maker
--- OUTSIDE RECORDS SUMMARY | 2025-06-02 09:32 | XMS_ITS | Referral Summary ---
Author Organization [email or web address] ([place], [place], [place], [place]) Address [address] [place] [address] Care Team Providers Care Statistician Name Role Phone Unavailable Primary Care Provider [...] (02/01/2023): Added automatically from request for surgery [id number] Social History Tobacco Use Types Packs/Day Years [...] Date Garcia rded Speak language other than Brazilian at home Not on file 10/27/2023 Want [...] on file Sexual Orientation Don't know 02/01/2023 7 :09 AM CDT Last Filed Vital Signs Vital [...] 02/01/2023 12:32 AM EDT Plan of Treatment Not on file Procedures Procedure Name Priority Date/Time Associated Diagnosis Comments HEMOGLOBIN A1C Add-On 02/02/2023 3:00 AM EDT from Last 3 Months or Most Recently Relevant to Health Maintenance Results * Hemoglobin A1c (02/02/2023 3:00 AM EDT) Hemoglobin A1C 8.0 % 02/02/2023 11:14 AM EDT [facility] Comment: Hemoglobin A1C levels are related to mean glucose during the preceding 2-3 months. Less than 7% demonstrates glycemic control in diabetic patients. Hemoglobin AlC % Suggested Diagnosis > or = 6.5 Diabetic 5.7 - 6.4 Prediabetic <5.7 Non-diabetic eAVG Glucose 182.9 mg/dL 02/02/2023 11:14 AM EDT [facility] Blood Venipuncture / Unknown 02/02/2023 3:00 AM EDT 02/02/2023 3:05 AM EDT Marylou Werner MD LAB BLOOD ORDERABLES Final R esult [facility] [address] [phone] from Last 3 Months or Most Recently Relevant to Health Maintenance Insurance [employer] MEDICARE PPO MEDICAID OF [place] Advance Directives For more information, please contact: [phone] Documents on File Type Date Recorded Patient Hoop Maker Helper Machine Expl anation Power of Flexible Babysitter 01/31/2023 * DNR - Limited Additional Intervention (Latest Code Status on File) Date Activated Date Inactivated Comments 01/31/2023 9:46 PM 02/06/2023 5:29 PM If no pulse: NO intervention If has pulse: NO Intubation. May use BiPAP/CPAP Call CAM MAKER * Full Code Date Activated Date Inactivated Comments 01/31/2023 8:28 PM 01/31/2023 9:46 PM Healthcare Agents on File Name Relationship Healthcare Agent Relationshi p Communication Rafael Fernandez Son First Alternate Healthcare Decision-Maker Cony Fernandez [id number] Second Alternate Healthcare Decision-Maker
--- OUTSIDE RECORDS SUMMARY | 2025-06-02 09:32 | XMS_ITS ---
Author Organization [facility] Team Providers Care Control Panel Tester Name Role Phone Joe, Robbie Unavailable Unavailable Gladys Dixon Unavailable Unavailable Nancy Cm Unavailable Unavailable Angella Lim Unavailable Unavailable Jp Delgado Unavailable Unavailable Allergies and adverse reactions Code CodeSystem Substance Reaction Severity StartDate Concern Status [place] Moderate 11/08/2022 active 552952 RXNORM SITagliptin Unknown 11/08/[address] Penicillins Unknown 11/08/2022 activ e 7804 RXNORM oxyCODONE Unknown 11/08/2022 active 6809 RXNORM metFORMIN Unknown 11/08/2022 active Januvia Unknown 11/09/2022 active Care Team Name Role Address Phone Organization [place], [address], [facility] (Office): [facility] 11/01/2024 - 05/27/2025 Falicia Stock [address] [facility], [place], [address], [facility] 11/01/2024 - 05/27/2025 Gladys Dixon [address] [facility], [place], [place], [address] [place] [address] (Office): : [facility] 11/01/2024 - 05/27/2025 Nancy Cm [address] [place], [place], [address] [place] [address] 11/01/2024 - 05/27/2025 Angella Lim [address] [facility], [place], [place], [address] [place] [address] (Office): : [facility] 11/01/2024 - 05/27/2025 Imaging Narrative Note Date Imaging Narrative No te 04/29/2025 XRAY CHEST 2 VIEW Co mparison: Compared to study performed on 01/15/2025. Reference: [id number] NoteFINDINGS: The heart is normal in size and configuration. The mediastinum is normal without adenopathy. The lung elizalde are clear without mass, infiltrate, congestion, or effusion. Bony structures are unremarkable without acute fracture or destructive lesions.CONCLUSION: No acute cardiopulmonary disease seen.ELECTRONICALLY SIGNED BY TESFAYE LANCE M.D. 04/29/2025 11:54:25 AM EDT.Reason for Study: R06.02 SHORTNESS OF BREATHPrincipal Result Application Chemist: TESFAYE LANCE ([id number])Dumper Mold Cleaner: PATRICIA LONGO (RREED)Catalog Librarian Dumper Mold Cleaner: WYATT Goals Section Goals Description Status Target Date The resident will maintain l ab values within acceptable parameters per MD through review date. Active 08/07/2025 4.)BLE weeping without complications through nex t review date Active 08/07/2025 [place] Resident's Advanced Di rective decisions and/or code status through next review Active 08/07/2025 Infection will resolve, through review date Acti ve 08/07/2025 Medication benefits with no adverse effects through the review date. Active 08/07/2025 Needs will be communicated/met through the revie w date. Active 08/07/2025 No s/s of hypo/hyperglycemia through the review date. Active 08/07/2025 Optimal cognition will be ma intained with no avoidable decline through the review date. Active 08/07/2025 Optimal visual ability will be maintained throug h the review date. Active 08/07/2025 Resident Will Experience Weight Reduction Active 08/07/2025 Resident discharging to another facility. Active 08/07/2025 Resident risk for unavoidabl e skin breakdown will be reduced with nursing interventions through review date. Active 08/07/2025 Resident will be clean warm and odor free through adequate toileting and Perineal Care through the review date Active Resident will have adequate bowel elimination AEB: r egular bowel movements at least every 3rd day through the review date. Active 08/07/2025 Resident will have decreased risk for falls through nursing interventions through the review date. Active 08/07/2025 Resident will not exhibit s/ s of recurring infection through next review Active 08/07/2025 Resident/family will verbali ze understanding of the residents risk for unavoidable skin breakdown through review date. Active Special Precautions will be followed by resident, visitors and staff through the review date. Active 08/07/2025 The resident will display op timal breathing pattern daily through review date. Active 08/07/2025 The resident will have no in dications of psychosocial well being problem by/through review date. Active 08/07/2025 The resident will maintain n ormal breathing pattern as evidenced by normal respirations, normal skin color, and regular respiratory rate/pattern through the review date. Active 08/07/2025 The resident will maintain o ptimal status and quality of life within limitations imposed by neurological deficits through review date. Active 08/07/2025 The resident will remain pablo e from discomfort, complications or s/sx related to dx of GERD through review date. Active 2024 Weight loss desired per resident through review date. Active 08/07/2025 Will achieve/maintain maximu m functional mobility through the review date. Active 08/07/2025 Will attend/participate in a ctivities of choice through the review date. Active 08/07/2025 Will consume adequate fluids to maintain hydration through the review date. Active 08/07/2025 Will follow center policy & procedures through t he review date. Active 08/07/2025 Will have needs met by lupillo tance of staff as needed through the review date. Active 08/07/2025 Will have no cardiac complications through the r eview date. Active 08/07/2025 Will have reduction of behav ioral episodes through the review date. Active 08/07/2025 Will not exhibit an avoidabl e decline in mood through the review date. Active 08/07/2025 reduce the development of complications through the review date Active 08/07/2025 will not have interruption i n normal activities due to pain through the review date Active 08/07/2025 Immunizations Immunization Status Vaccine Details Vaccine Code CodeSystem Date Notes Influenza completed Influenza, high-dose, split virus, quadrivalent, injectable, preservative free lotNumber: [id number] expiry: 02/11/2025 Mfg: flaud Given 0.5 ml Right Deltoid intramuscularly 197 CVX created date: 07/25/2024 consent date: 07/25/2024 administer ed date: 07/25/2024 Educated by [email or web address] on 07/25/2024 Influenza completed Influenza, high-dose, split virus, quadrivalent, injectable, preservative free expiry: 04/01/2024 Mfg: FLUAD Given 0.5 ml Right Deltoid intramuscularly 197 CVX created date: 07/12/2023 consent date: 07/12/2023 administer ed date: 07/12/2023 Influenza completed Influenza, high-dose, split virus, quadrivalent, injectable, preservative free 197 CVX created date: 11/09/2022 administer ed date: 07/27/2022 Hepatitis B completed hepatitis B vaccine, adult dosage 43 CVX created date: 11/09/2022 administer ed date: 08/01/2011 TB 1 Step Mantoux (PPD) completed tuberculin skin test; unspecified formulation lotNumber: [id number] expiry: 02/06/2026 Mfg: Aplisol Given 0.1 ml Right Forearm intradermally 98 CVX created date: 11/01/2024 consent date: 11/01/2024 administer ed date: 11/01/2024 Educated by on 11/04/2024 TB 1 Step Mantoux (PPD) completed tuberculin skin test; unspecified formulation lotNumber: [id number] expiry: 09/08/2025 Mfg: Tubersol Given 0.1 ml Left Forearm intradermally 98 CVX created date: 01/31/2024 consent date: 01/31/2024 administer ed date: 01/31/2024 Educated by Estela Lim LPN on 01/31/2024 TB 1 Step Mantoux (PPD) completed tuberculin skin test; unspecified formulation lotNumber: [id number] expiry: 06/09/2024 Mfg: Par [employer]aceutical Given 0.1 ml Left Forearm intradermally 98 CVX created date: 02/08/2023 consent date: 02/08/2023 administer ed date: 02/08/2023 Tetanus completed Td(adult) unspecified formulation 139 CVX created date: 11/09/2022 administer ed date: 06/30/2011 TB 2 Step Mantoux Skin Test completed tuberculin skin test; unspecified formulation Given 0.1 ml Left Forearm intradermally Step 2 of Multi-step with next step required 98 CVX created date: 02/14/2023 consent date: 02/14/2023 administer ed date: 11/17/2022 TB 2 Step Mantoux Skin Test completed tuberculin skin test; unspecified formulation lotNumber: [id number] expiry: 03/08/2024 Mfg: Tubercuin Given 0.1 ml Left Forearm intradermally Step 1 of Multi-step with next step required 98 CVX created date: 11/09/2022 consent date: 11/09/2022 administer ed date: 11/09/2022 Pneumococcal - Historical Type Unknown cancelled pneumococcal conjugate vaccine, 13 valent 133 CVX created date: 11/16/2022 consent date: 11/16/2022 SARS-COV-2 (COVID-19) cancelled created date: 03/06/2025 consent date: 03/04/2025 Educated by on 03/06/2025 SARS-COV-2 (COVID-19) cancelled created date: 08/21/2024 consent date: 08/21/2024 Educated by on 08/21/2024 SARS-COV-2 (COVID-19) completed SARS-COV-2 (COVID-19) vaccine, mRNA, spike protein, LNP, preservative free, 100 mcg/0.5mL dose or 50 mcg/0.25mL dose Step 1 of Multi-step 207 CVX created date: 11/09/2022 administer ed date: 11/02/2021 SARS-COV-2 (COVID-19) completed SARS-COV-2 (COVID-19) vaccine, mRNA, spike protein, LNP, preservative free, 100 mcg/0.5mL dose or 50 mcg/0.25mL dose Step 2 of Multi-step with next step required 207 CVX created date: 11/09/2022 administer ed date: 12/10/2020 SARS-COV-2 (COVID-19) completed SARS-COV-2 (COVID-19) vaccine, mRNA, spike protein, LNP, preservative free, 100 mcg/0.5mL dose or 50 mcg/0.25mL dose Step 1 of Multi-step with next step required 207 CVX created date: 11/09/2022 administer ed date: 11/12/2020 Pneumococcal Prevnar 20 completed Pneumococcal conjugate vaccine 20-valent (PCV20), polysaccharide [id number] conjugate, adjuvant, preservative free lotNumber: [id number] expiry: 11/09/2025 Mfg: Prevnar 20 Given 0.5 ml intramuscularly 216 CVX created date: 02/11/2025 consent date: 02/11/2025 administer ed date: 02/11/2025 Educated by on 02/11/2025 RSV Vaccine completed Respiratory syncytial virus (RSV), vaccine, recombinant, protein subunit RSV prefusion F, adjuvant reconstituted, 0.5 mL, preservative free lotNumber: [id number] expiry: 08/02/2025 Mfg: Arexvy Given 0.5 ml Right Deltoid intramuscularly 303 CVX created date: 08/02/2024 consent date: 07/18/2024 administer ed date: 08/02/2024 Educated by on 08/05/2024 Moderna / cancelled SARS-COV-2 (COVID-19) vaccine, subunit, recombinant spike protein-nanopartic le+Matrix-M1 Adjuvant, preservative free, 0.5mL dose 211 CVX created date: 04/16/2024 consent date: 04/16/2024 Educated by on 04/16/2024 Medications Section Medication Name Status Code CodeSystem Dose Route Frequency Admin Type Sig Text Start Date End Date Biofreeze Cool The Pain External Cream 10 % aborted n/a n/a Topical as needed PRN Apply to lower back topica lly every 12 hours as needed for pain 05/27 FiberCon Oral Tablet 625 MG aborted 917565 RXNORM 1 tablet Oral one time a day Routine Give 1 tablet by mouth one time a day for consti pation 05/27 Aspirin Oral Tablet Chewable 81 MG aborted 978582 RXNORM 1 tablet Oral one time a day Routine Give 1 tablet by mouth one time a day for Heart diseas e 05/27 Nadolol Oral Tablet 20 MG aborted 668385 RXNORM 1 tablet Oral two times a day Routine Give 1 tablet by mouth two times a day for HTN relate d to PORTAL HYPERT ENSION (K76.6 ) 05/27 Ferrous Sulfate Oral Tablet 325 (65 Fe) MG aborted 595474 RXNORM 1 tablet Oral two times a day Routine Give 1 tablet by mouth two times a day for supple ment 05/27 Vitamin D3 Oral Tablet 25 MCG aborted 1 tablet Oral one time a day Routine Give 1 tablet by mouth one time a day for vit defici ency relate d to OTHER SPECIF IED DISORD ERS INVOLV ING THE 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 ISM, NOT ELSEWH ERE CLASSI FIED (D89.8 9) 05/27 Cetirizine HCl Oral Tablet 10 MG aborted 415705 8 RXNORM 1 tablet Oral one time a day Routine Give 1 tablet by mouth one time a day for Allerg ies 05/27 Gabapentin Oral Capsule 300 MG aborted 395263 RXNORM 1 capsul e Oral three times a day Routine Give 1 capsul e by mouth three times a day for Neurop athy 05/27 Pramipexole Dihydrochlori de Oral Tablet 0.125 MG aborted 787456 RXNORM 1 tablet Oral at bedtime Routine Give 1 tablet by mouth at bedtim e for [place] son like syndro me 05/27 Lisinopril Oral Tablet 20 MG aborted 422077 RXNORM 1 tablet Oral one time a day Routine Give 1 tablet by mouth one time a day for HTN relate d to PORTAL HYPERT ENSION (K76.6 ) 05/27 Montelukast Sodium Oral Tablet 10 MG aborted 20011112 RXNORM 1 tablet Oral at bedtime Routine Give 1 tablet by mouth at bedtim e for Allerg ies 05/27 oxyBUTYnin Chloride ER Oral Tablet Extended Release 24 Hour 10 MG aborted 357721 RXNORM 1 tablet Oral one time a day Routine Give 1 tablet by mouth one time a day for Overac tive bladde r 05/27 Protonix Oral Tablet Delayed Release 40 MG aborted 576597 RXNORM 1 tablet Oral one time a day Routine Give 1 tablet by mouth one time a day for GERD 05/27 Roflumilast Oral Tablet 500 MCG aborted 030257 9 RXNORM 1 tablet Oral one time a day Routine Give 1 tablet by mouth one time a day for COPD 05/27 Potassium Chloride ER Oral Tablet Extended Release 20 MEQ aborted 496149 RXNORM 1 tablet Oral one time a day Routine Give 1 tablet by mouth one time a day for supple ment 05/27 Fleet Enema Enema 7-19 GM/118ML aborted 264023 RXNORM 1 applic ation Rectal as needed PRN Insert 1 applic ation rectal ly as needed for Consti pation Admini ster one enema if no BM 12 hours after Dulcol ax suppos itory 05/27 Senna Tablet 8.6 MG aborted 445728 RXNORM 2 tablet Oral as needed PRN Give 2 tablet by mouth as needed for Consti pation Take 2 tablet s once daily prn for no bowel moveme nt in 3 days 05/27 Dulcolax Suppository aborted 1 suppos itory Rectal as needed PRN Insert 1 suppos itory rectal ly as needed for Consti pation Insert 1 suppos itory WV daily prn if no bowel moveme nt 24 hours after Senna 05/27 Acetaminophen -Codeine Oral Tablet 300-15 MG aborted 192499 RXNORM 1 tablet Oral as needed PRN Give 1 tablet by mouth every 8 hours as needed for pain 05/27 BD AutoShield Duo Miscellaneous 30G X 5 MM aborted 1 applic ator Subcuta neous four times a day Routine Inject 1 applic ator subcut aneous ly four times a day for DM 2 05/27 NovoLOG FlexPen Subcutaneous Solution Pen-injector 100 UNIT/ML aborted 855118 4 RXNORM n/a n/a Subcuta neous before meals and at bedtime Routine Inject as per slidin g scale: if 200 - 249 = 2; 250 - 299 = 4; 300 - 349 = 6; 350 - 399 = 8; 400 - 449 = 10; 450 - 499 = 12 and notify , subcut aneous ly before meals and at bedtim e for DM2 05/27 Torsemide Oral Tablet 100 MG aborted 179234 RXNORM 50 mg Oral one time a day Routine Give 50 mg by mouth one time a day for Edema GIVE HALF tablet 05/27 Insta-Glucose Gel 77.4 % aborted 175751 2 RXNORM 1 dose Oral as needed PRN Give 1 dose by mouth every 24 hours as needed for BG less than 70, Pt arousa ble consci ous and able to swallo w Hold all diabet ic medica tions until provid er author constantin resump tion. Remain with pt. Keep pt.in bed/ch air for safety . Repeat blood glucos e in 15 min. AND Give 1 dose by mouth every 24 hours as needed for BG less than 70, Pt arousa ble consci ous and able to swallo w If repeat blood glucos e is below 70mg/d l and pt is arousa ble, consci ous and able to swallo w. Contin ue to hold all diabet ic medica tions until provid er author izes resump tion. Remain with pt. Keep pt.in bed/ch air for safety . 05/27 907341 2 RXNORM 1 dose Oral as needed PRN Give 1 dose by mouth every 24 hours as needed for BG less than 70, Pt arousa ble consci ous and able to swallo w Hold all diabet ic medica tions until provid er author izes resump tion. Remain with pt. Keep pt.in bed/ch air for safety . Repeat blood glucos e in 15 min. AND Give 1 dose by mouth every 24 hours as needed for BG less than 70, Pt arousa ble consci ous and able to swallo w If repeat blood glucos e is below 70mg/d l and pt is arousa ble, consci ous and able to swallo w. Contin ue to hold all diabet ic medica tions until provid er author izes resump tion. Remain with pt. Keep pt.in bed/ch air for safety . 05/27 Glucagon Emergency Kit 1 MG aborted 536085 RXNORM 1 mg Intramu scular as needed PRN Inject 1 mg intram uscula rly every 24 hours as needed for BG less than 70, Not arousa ble consci ous or able to swallo w Hold all diabet ic meds until provid er author izbenjie resump tion, remain with pt.and keep in bed/ch air for safety . Repeat blood glucos e in 15 min AND Inject 1 mg intram uscula rly every 24 hours as needed for BG less than 70, Not arousa ble consci ous or able to swallo w If repeat blood glucos e is below 70mg/d l and pt is NOT arousa ble, consci ous or able to swallo w. Contin ue to hold all diabet ic medica tions until provid er author izes resump tion. Remain with pt. Keep pt. in bed/ch air for safety . 05/27 744341 RXNORM 1 mg Intramu scular as needed PRN Inject 1 mg intram uscula rly every 24 hours as needed for BG less than 70, Not arousa ble consci ous or able to swallo w Hold all diabet ic meds until provid er author izes resump tion, remain with pt.and keep in bed/ch air for safety . Repeat blood glucos e in 15 min AND Inject 1 mg intram uscula rly every 24 hours as needed for BG less than 70, Not arousa ble consci ous or able to swallo w If repeat blood glucos e is below 70mg/d l and pt is NOT arousa ble, consci ous or able to swallo w. Contin ue to hold all diabet ic medica tions until provid er author constantin resump tion. Remain with pt. Keep pt. in bed/ch air for safety . 05/27 Multivitamin- Minerals Oral Tablet aborted 1 tablet Oral one time a day Routine Give 1 tablet by mouth one time a day for low albumi n/pmh 05/27 Incruse Ellipta Inhalation Aerosol Powder Breath Activated 62.5 MCG/ACT aborted 160251 5 RXNORM 1 puff Inhalat ion one time a day Routine 1 puff inhale orally one time a day for COPD 05/27 Hair Skin and Nails Formula Oral Tablet aborted 1 tablet Oral one time a day Routine Give 1 tablet by mouth one time a day for dry brittl e hair, skin and nails 05/27 Nitroglycerin Sublingual Tablet Sublingual 0.4 MG aborted 976332 RXNORM 1 tablet Subling ual as needed PRN Give 1 tablet sublin gually every 5 minute s as needed for chest pain give 1 tablet every 5 minute s for 3 doses 05/27 Albuterol Sulfate HFA Inhalation Aerosol Solution 108 (90 Base) MCG/ACT aborted 757146 RXNORM 2 puff Inhalat ion as needed PRN 2 puff inhale orally every 6 hours as needed for COPD 05/27 traZODone HCl Oral Tablet 50 MG aborted 329978 RXNORM 1 tablet Oral at bedtime Routine Give 1 tablet by mouth at bedtim e for insomn ia 05/27 Symbicort Inhalation Aerosol 160-4.5 MCG/ACT aborted 357354 6 RXNORM 2 puff Inhalat ion two times a day Routine 2 puff inhale orally two times a day for COPD, asthma Remind er that the reside nt's mouth should be rinsed out after use to avoid oral thrush from develo ping. 05/27 NovoLOG Mix 70/30 FlexPen Subcutaneous Suspension Pen-injector (70-30) 100 UNIT/ML aborted 780373 RXNORM 24 unit Subcuta neous two times a day Routine Inject 24 unit subcut aneous ly two times a day for DM2 with breakf ast and supper . hold is BS is <100 05/27 Plavix Oral Tablet 75 MG aborted 976669 RXNORM 1 tablet Oral one time a day Routine Give 1 tablet by mouth one time a day for PAD 05/27 Albuterol Sulfate Inhalation Nebulization Solution aborted 1 unit Inhalat ion as needed PRN 1 unit inhale orally via nebuli zer every 8 hours as needed for SOB 04/29 Cough Drops Mouth/Throat Lozenge 5 MG aborted 1 lozeng e Oral as needed PRN Give 1 lozeng e by mouth every 2 hours as needed for cough may have at bedsid freya Cheathams gonzales 05/27 Lantus SoloStar Subcutaneous Solution Pen-injector 100 UNIT/ML aborted 929966 RXNORM 22 unit Subcuta neous two times a day Routine Inject 22 unit subcut aneous ly two times a day for DM type 2 05/27 Nystatin Powder aborted n/a n/a Topical as needed PRN Apply to red areas topica lly as needed for rednes s 05/27 Venlafaxine Besylate ER Oral Tablet Extended Release 24 Hour 112.5 MG aborted 669942 0 RXNORM 1 tablet Oral one time a day Routine Give 1 tablet by mouth one time a day for depres baylee 05/12 Albuterol Sulfate Inhalation Nebulization Solution aborted 1 applic ation Inhalat ion every 6 hours Routine 1 applic ation inhale orally via nebuli zer every 6 hours for shortn ess of breath 05/27 Azithromycin Oral Tablet 500 MG complete d 761828 RXNORM 1 tablet Oral one time only One Time Only Give 1 tablet by mouth one time only for copd exacer bation for 1 Day 04/30 Sodium Chloride Intravenous Solution 0.45 % complete d 660218 8 RXNORM 50 ml/hr Intrave nous one time only One Time Only Use 50 ml/hr intrav enousl y one time only for dehydr ation for 1 Day Run @ 50 ml/hr x 1 liter 04/30 SOLU-Medrol (PF) Injection Solution Reconstituted 125 MG complete d 839911 7 RXNORM 125 mg Intramu scular one time only One Time Only Inject 125 mg intram uscula rly one time only for copd exacer bation for 1 Day 04/30 Cefdinir Oral Capsule 300 MG aborted 20030112 RXNORM 1 capsul e Oral two times a day Routine Give 1 capsul e by mouth two times a day for UTI 04/29 Cefdinir Oral Capsule 300 MG complete d 978964 RXNORM 1 capsul e Oral two times a day Routine Give 1 capsul e by mouth two times a day for UTI for 10 Days 05/09 Venlafaxine HCl ER Oral Capsule Extended Release 24 Hour 150 MG aborted 443395 RXNORM 1 capsul e Oral one time a day Routine Give 1 capsul e by mouth one time a day for depres baylee 05/27 Diclofenac Sodium External Gel 1 % aborted 707035 RXNORM n/a n/a Topical every day and fast food shift supervisor Routine Apply to neck, should er, hands topica lly every day and fast food shift supervisor for arthri tis pain Apply 4 grams to affect ed areas 05/27 Diclofenac Sodium External Gel 1 % aborted 394989 RXNORM n/a n/a Topical two times a day Routine Apply to neck, should er, hands topica lly two times a day for arthri tis pain 05/14 Benadryl Itch Stopping External Cream 1-0.1 % aborted 801311 7 RXNORM n/a n/a Topical three times a day Routine Apply to back topica lly three times a day for itchin g 05/15 Benadryl Itch Stopping External Cream 1-0.1 % aborted 976076 7 RXNORM n/a n/a Topical every shift Routine Apply to back topica lly every shift for itchin g 05/17 Benadryl Itch Stopping External Cream 1-0.1 % aborted 846954 7 RXNORM n/a n/a Topical every day and fast food shift supervisor Routine Apply to back topica lly every day and fast food shift supervisor for itchin g 05/27 Acetaminophen Oral Tablet 500 MG aborted 242221 RXNORM 1 tablet Oral as needed PRN Give 1 tablet by mouth every 8 hours as needed for Pain/t emp 05/27 Bisacodyl EC Oral Tablet Delayed Release 5 MG aborted 1 tablet Oral as needed PRN Give 1 tablet by mouth every 24 hours as needed for consti pation 05/27 Mental Status Section Date Assessment Total Score Description 05/03/2025 BIMS 15 cognitively int act CAM 0 No delirium ind icated PHQ-9 00 02/04/2025 BIMS 15 cognitively int act CAM 0 No delirium ind icated PHQ-9 08 mild depression Problems Problem # Description Date of onset Resolved Date Code CodeSystem Concern Status 1 URINARY TRACT INFECTION, SITE NOT SPECIFIED 04/29/[address] active 2 GENERALIZED ANXIETY DISORDER 02/01/[address] active 3 MAJOR DEPRESSIVE DISORDER, RECURRENT, UNSPECIFIED 01/29/[address] active 4 BODY MASS INDEX [BMI]40.0-44.9, ADULT 01/28/[address] active 5 MORBID (SEVERE) OBESITY DUE TO EXCESS CALORIES 01/28/[address] active 6 OTHER DISORDERS OF PLASMA-PROTEIN METABOLISM, NOT ELSEWHERE CLASSIFIED 11/05/[id number] active 7 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 11/01/[address] active 8 ACUTE ON CHRONIC SYSTOLIC (CONGESTIVE) HEART FAILURE 11/01/[address] active 9 HEART FAILURE, UNSPECIFIED 11/01/[address] active 10 OTHER ABNORMALITIES OF GAIT AND MOBILITY 11/01/[address] active 11 PORTAL HYPERTENSION 11/01/[address] active 12 PAIN IN RIGHT UPPER ARM 06/27/[address] active 13 WEAKNESS 06/27/[address] active 14 OBESITY, UNSPECIFIED 05/21/[address] active 15 PERSONAL HISTORY OF OTHER INFECTIOUS AND PARASITIC DISEASES 04/18/[address] active 16 OTHER LOW BACK PAIN 10/20/[address] active 17 CHRONIC KIDNEY DISEASE, UNSPECIFIED 06/29/[address] active 18 OVERACTIVE BLADDER 05/11/[address] active 19 RESPIRATORY DISORDERS IN DISEASES CLASSIFIED ELSEWHERE 05/11/20 23 09/02/2024 [id number] SNOMED CT completed 20 VITAMIN D DEFICIENCY, UNSPECIFIED 05/11/[id number] active 21 HYPOKALEMIA 04/07/[id number] active 22 ESSENTIAL (PRIMARY) HYPERTENSION 03/22/[address] active 23 GASTRO-ESOPHAGEAL REFLUX DISEASE WITHOUT ESOPHAGITIS 02/08/[address] active 24 ACUTE RESPIRATORY FAILURE WITH HYPOXIA 02/07/20 23 01/07/[address] completed 25 ANEMIA, UNSPECIFIED 02/07/[address] active 26 CHRONIC OBSTRUCTIVE PULMONARY DISEASE, UNSPECIFIED 02/07/[address] active 27 METABOLIC ENCEPHALOPATHY 02/07/20 23 08/17/[address] completed 28 POLYNEUROPATHY, UNSPECIFIED 02/07/[address] active 29 RESTLESS LEGS SYNDROME 02/07/[address] active 30 SEPSIS, UNSPECIFIED ORGANISM 02/07/20 23 05/30/[address] completed 31 CHRONIC KIDNEY DISEASE, STAGE 4 (SEVERE) 12/21/[address] active 32 ACUTE KIDNEY FAILURE, UNSPECIFIED 11/08/19 23 05/30/[address] completed 33 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 11/08/[address] active 34 ATHEROSCLEROTIC HEART DISEASE OF [place] CORONARY ARTERY WITHOUT ANGINA PECTORIS 11/08/[id number] active 35 CELLULITIS OF UNSPECIFIED PART OF LIMB 11/08/19 23 05/30/[address] completed 36 CHRONIC OBSTRUCTIVE PULMONARY DISEASE WITH (ACUTE) EXACERBATION 11/08/1905/05/[address] completed 37 DEPRESSION, UNSPECIFIED 11/08/[address] active 38 DIFFICULTY IN WALKING, NOT ELSEWHERE CLASSIFIED 11/08/[address] active 39 DYSPHAGIA, OROPHARYNGEAL PHASE 11/08/[address] active 40 DYSURIA 11/08/[address] active 41 EDEMA, UNSPECIFIED 11/08/[address] active 42 HYPERLIPIDEMIA, UNSPECIFIED 11/08/[address] active 43 HYPO-OSMOLALITY AND HYPONATREMIA 11/08/[address] active 44 METATARSALGIA, LEFT FOOT 11/08/[address] active 45 METATARSALGIA, RIGHT FOOT 11/08/[address] active 46 MUSCLE WEAKNESS (GENERALIZED) 11/08/[address] active 47 NAIL DYSTROPHY 11/08/[address] active 48 NICOTINE DEPENDENCE, CIGARETTES, UNCOMPLICATED 11/08/[address] active 49 OBSTRUCTIVE SLEEP APNEA (ADULT) (PEDIATRIC) 11/08/[address] active 50 OTHER SPECIFIED DISEASES OF INTESTINE 11/08/[address] active 51 OTHER SPECIFIED DISORDERS INVOLVING THE 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ISM, NOT ELSEWHERE CLASSIFIED 11/08/[address] active 52 PNEUMONIA, UNSPECIFIED ORGANISM 11/08/19 23 05/30/[address] completed 53 TYPE 2 DIABETES MELLITUS WITHOUT COMPLICATIONS 11/08/[address] active 54 UNSPECIFIED ASTHMA, UNCOMPLICATED 11/08/[address] active 55 UNSPECIFIED CIRRHOSIS OF LIVER 11/08/[address] active 56 UNSPECIFIED DIASTOLIC (CONGESTIVE) HEART FAILURE 11/08/[address] active 57 UNSPECIFIED KIDNEY FAILURE 11/08/19 23 05/30/[address] completed 58 UNSTEADINESS ON FEET 11/08/[address] active 59 URINARY TRACT INFECTION, SITE NOT SPECIFIED 11/08/19 23 05/30/[address] completed Reason for Referral No Reasons for Referral Entered Diagnostic Results Result Code Code System Date Test Result Interpretation Reference Range Status Notes [id number]- [id number] [facility] 05/26 RENAL PANEL INCL GFR / CBC W/DIFF / PTH, INTACT / VITAMIN D 25-OH TOTAL Completed Result for: AMBAR FERNANDEZ ( 1950, F) 788-0 [facility] 05/26 RDW Value: 15.0 Units: % Normal 11.0-16.0 Final 770-8 [facility] 05/26 NEUTROPHILS Value: 60.0 Units: % Normal 40.0-80.0 Final 736-9 [facility] 05/26 LYMPHS Value: 29.5 Units: % Normal 13.0-48.0 Final 02242-0 [facility] 05/26 MONOCYTES Value: 7.8 Units: % Normal 2.0-12.0 Final 713-8 [facility] 05/26 EOS Value: 2.4 Units: % Normal 0.0-8.0 Final 706-2 [facility] 05/26 BASO Value: 0.3 Units: % Normal 0.0-2.0 Final 4544-3 [facility] 05/26 HEMATOCRIT Value: 29.1 Units: % Low 36.0-48.0 Final 33681-2 [facility] 05/26 MCV Value: 89.9 Units: fL Normal 80.0-100.0 Final 20433-9 [facility] 05/26 MPV Value: 9.5 Units: fL Normal 6.5-12.0 Final 786-4 [facility] 05/26 MCHC Value: 31.5 Units: g/dL Normal 31.0-36.5 Final 718-7 [facility] 05/26 HEMOGLOBIN Value: 9.2 Units: g/dL Low 12.0-16.0 Final 1751-7 [facility] 05/26 ALBUMIN Value: 3.1 Units: g/dL Low 3.5-5.5 Final 3097-3 [facility] 05/26 BUN/CREATINI NE RATIO Value: 19 Units: Normal 6-25 Final 6690-2 [facility] 05/26 WBC Value: 5.5 Units: K/cmm Normal 4.5-10.8 Final 777-3 [facility] 05/26 PLATELET Value: 151 Units: K/cmm Normal 150-450 Final 751-8 [facility] 05/26 NEUTS (ABSOLUTE) Value: 3.30 Units: K/uL Normal 1.50-7.60 Final 731-0 [facility] 05/26 LYMPHS (ABSOLUTE) Value: 1.60 Units: K/uL Normal 0.90-5.50 Final 742-7 [facility] 05/26 MONOCYTES (ABSOLUTE) Value: 0.40 Units: K/uL Normal 0.15-1.10 Final 711-2 [facility] 05/26 EOS (ABSOLUTE) Value: 0.10 Units: K/uL Normal 0.00-0.80 Final 789-8 [facility] 05/26 RBC Value: 3.24 Units: 10*3/mm 3 Low 3.90-5.40 Final 2951-2 [facility] 05/26 SODIUM Value: 144 Units: mEq/L Normal 136-145 Final 2823-3 [facility] 05/26 POTASSIUM Value: 4.5 Units: mEq/L Normal 3.5-5.3 Final 2074-0 [facility] 05/26 CHLORIDE Value: 97 Units: mEq/L Low 98-110 Final 2027- [facility] 05/26 CARBON DIOXIDE (CO2) Value: 36 Units: mEq/L High 21-33 Final 3094-0 [facility] 05/26 BUN (UREA NITROGEN) Value: 21 Units: mg/dL Normal 7-25 Final 216-0 [facility] 05/26 CREATININE Value: 1.1 Units: mg/dL Normal 0.6-1.3 Final 2344-7 [facility] 05/26 GLUCOSE Value: 119 Units: mg/dL High Final GLUCOSE, FASTING 65-99 mg/dL GLUCOSE, NON-FASTING 65-125 mg/dL 7- [facility] 05/26 PHOSPHORUS Value: 3.9 Units: mg/dL Normal 2.5-5.0 Final 98011-3 [facility] 05/26 CALCIUM Value: 8.8 Units: mg/dL Normal 8.6-10.3 Final 21811-4 [facility] 05/26 GFR- Value: 58 Units: mL/min/ {1.73_m 2} Low >60 Final 50546-9 [facility] 05/26 IER-WZH-GXVI [facility] Value: 48 Units: mL/min/ {1.73_m 2} Low >60 Final Stage of CKD eGFR (mL/min/1.73 square meters) Stage 1 >/= 90 or > 90 Stage 2 60 - 89 Stage 3 30 - 59 Stage 4 15 - 29 Stage 5 </= 14 or < 15 GFR is reliable for adults 17 to 69 years with stable kidney function. 19749-3 [facility] 05/26 VITAMIN D 25-OH TOTAL Value: 56 Units: ng/mL Normal 30-100 Final 771-6 [facility] 05/26 NUCLEATED RBC Value: 0.1 Units: {RBC}/1 00{WBC} Normal <1.0 Final 785-6 [facility] 05/26 MCH Value: 28.3 Units: pg Normal 26.0-35.0 Final 2731-8 [facility] 05/26 PTH, INTACT Value: 54 Units: pg/mL Normal 15-65 Final JG1945- 6 [facility] 05/26 MICROALBUMIN RANDOM / CREATININE,R ANDOM UR Completed Result for: AMBAR FERNANDEZ ( 1950, F) 2161-05 [facility] 05/26 CREATININE, URINE Value: 61.8 Units: mg/dL Normal Final NO NORMAL RANGES ESTABLISHED FOR RANDOM SPECIMENS 123-999 99-9 [facility] 05/26 MICROALBUMIN , URINE Value: 0.2 Units: mg/dL Normal 0.0-1.7 Final Verified 2161-05 [facility] 05/26 CREATININE, UR Value: 61.8 Units: mg/dL Normal SEE BELOW Final NO NORMAL RANGE ESTABLISHED 123-999 99-9 [facility] 05/26 MICRO/CREAT RATIO Value: 3.2 Units: Normal <30 Final WE7916- 2 [facility] 05/15 CBC W/DIFF Completed Result for: AMBAR FERNANDEZ ( 1950, F) 751-8 [facility] 05/15 NEUTS (ABSOLUTE) Value: 3.90 Units: K/uL Normal 1.50-7.60 Final 731-0 [facility] 05/15 LYMPHS (ABSOLUTE) Value: 1.40 Units: K/uL Normal 0.90-5.50 Final 742-7 [facility] 05/15 MONOCYTES (ABSOLUTE) Value: 0.50 Units: K/uL Normal 0.15-1.10 Final 711-2 [facility] 05/15 EOS (ABSOLUTE) Value: 0.20 Units: K/uL Normal 0.00-0.80 Final 786-4 [facility] 05/15 MCHC Value: 30.0 Units: g/dL Low 31.0-36.5 Final 718-7 [facility] 05/15 HEMOGLOBIN Value: 8.7 Units: g/dL Low 12.0-16.0 Final 4544-3 [facility] 05/15 HEMATOCRIT Value: 28.9 Units: % Low 36.0-48.0 Final 788-0 [facility] 05/15 RDW Value: 15.8 Units: % Normal 11.0-16.0 Final 770-8 [facility] 05/15 NEUTROPHILS Value: 65.0 Units: % Normal 40.0-80.0 Final 736-9 [facility] 05/15 LYMPHS Value: 23.5 Units: % Normal 13.0-48.0 Final 86096-4 [facility] 05/15 MONOCYTES Value: 8.0 Units: % Normal 2.0-12.0 Final 713-8 [facility] 05/15 EOS Value: 2.8 Units: % Normal 0.0-8.0 Final 706-2 [facility] 05/15 BASO Value: 0.7 Units: % Normal 0.0-2.0 Final 50242-4 [facility] 05/15 MCV Value: 92.3 Units: fL Normal 80.0-100.0 Final 32915-1 [facility] 05/15 MPV Value: 9.2 Units: fL Normal 6.5-12.0 Final 6690-2 [facility] 05/15 WBC Value: 6.1 Units: K/cmm Normal 4.5-10.8 Final Verified 777-3 [facility] 05/15 PLATELET Value: 145 Units: K/cmm Low 150-450 Final 789-8 [facility] 05/15 RBC Value: 3.12 Units: 10*3/mm 3 Low 3.90-5.40 Final 785-6 [facility] 05/15 MCH Value: 27.7 Units: pg Normal 26.0-35.0 Final OB2012- 6 [facility] 05/05 CMP-COMPREHE NSIVE METABOLIC PNL / LIPID PANEL w/calc LDL / GLYCO-HGBA1C / IRON / CBC W/DIFF / VITAMIN D 25-OH TOTAL Completed Result for: AMBAR FERNANDEZ ( 1950, F) 785-6 [facility] 05/05 MCH Value: 29.4 Units: pg Normal 26.0-35.0 Final 771-6 [facility] 05/05 NUCLEATED RBC Value: 0.2 Units: {RBC}/1 00{WBC} Normal <1.0 Final 28244-0 [facility] 05/05 GFR- Value: 48 Units: mL/min/ {1.73_m 2} Low >60 Final 68096-1 [facility] 05/05 ISF-BJT-GLOE [facility] Value: 40 Units: mL/min/ {1.73_m 2} Low >60 Final Stage of CKD eGFR (mL/min/1.73 square meters) Stage 1 >/= 90 or > 90 Stage 2 60 - 89 Stage 3 30 - 59 Stage 4 15 - 29 Stage 5 </= 14 or < 15 GFR is reliable for adults 17 to 69 years with stable kidney function. 61671-9 [facility] 05/05 VITAMIN D 25-OH TOTAL Value: 53 Units: ng/mL Normal 30-100 Final 2498-4 [facility] 05/05 IRON Value: 109 Units: ug/dL Normal 50-212 Final 789-8 [facility] 05/05 RBC Value: 2.52 Units: 10*3/mm 3 Low 3.90-5.40 Final Verified 788-0 [facility] 05/05 RDW Value: 15.6 Units: % Normal 11.0-16.0 Final 770-8 [facility] 05/05 NEUTROPHILS Value: 56.6 Units: % Normal 40.0-80.0 Final 736-9 [facility] 05/05 LYMPHS Value: 33.0 Units: % Normal 13.0-48.0 Final 08370-0 [facility] 05/05 MONOCYTES Value: 7.7 Units: % Normal 2.0-12.0 Final 713-8 [facility] 05/05 EOS Value: 2.1 Units: % Normal 0.0-8.0 Final 706-2 [facility] 05/05 BASO Value: 0.6 Units: % Normal 0.0-2.0 Final 4548-4 [facility] 05/05 GLYCOHEMOGLO BIN-HGBA1C Value: 5.8 Units: % Normal 4.1-6.1 Final 4544-3 [facility] 05/05 HEMATOCRIT Value: 23.2 Units: % Low 36.0-48.0 Final Verified 46583-7 [facility] 05/05 MCV Value: 92.1 Units: fL Normal 80.0-100.0 Final 42955-2 [facility] 05/05 MPV Value: 9.4 Units: fL Normal 6.5-12.0 Final 718-7 [facility] 05/05 HEMOGLOBIN Value: 7.4 Units: g/dL Low 12.0-16.0 Final Verified 786-4 [facility] 05/05 MCHC Value: 31.9 Units: g/dL Normal 31.0-36.5 Final 2885-2 [facility] 05/05 PROTEIN, TOTAL Value: 4.9 Units: g/dL Low 6.0-8.3 Final 17517 [facility] 05/05 ALBUMIN Value: 2.6 Units: g/dL Low 3.5-5.5 Final 6768-6 [facility] 05/05 ALKALINE PHOS Value: 111 Units: [IU]/L Normal 38-126 Final 19208 [facility] 07/28 /2025 AST (SGOT) Value: 24 Units: [IU]/L Normal 14-36 Final 1742-6 [facility] 05/05 ALT (SGPT) Value: 11 Units: [IU]/L Normal 7-52 Final 6690-2 [facility] 05/05 WBC Value: 3.6 Units: K/cmm Low 4.5-10.8 Final 777-3 [facility] 05/05 PLATELET Value: 118 Units: K/cmm Low 150-450 Final 751-8 [facility] 05/05 NEUTS (ABSOLUTE) Value: 2.10 Units: K/uL Normal 1.50-7.60 Final 731-0 [facility] 05/05 LYMPHS (ABSOLUTE) Value: 1.20 Units: K/uL Normal 0.90-5.50 Final 742-7 [facility] 05/05 MONOCYTES (ABSOLUTE) Value: 0.30 Units: K/uL Normal 0.15-1.10 Final 711-2 [facility] 05/05 EOS (ABSOLUTE) Value: 0.10 Units: K/uL Normal 0.00-0.80 Final 3097-3 [facility] 05/05 BUN/CREATINI NE RATIO Value: 16 Units: Normal 6-25 Final 1759-0 [facility] 05/05 A/G RATIO Value: 1.1 Units: Normal 0.8-2.0 Final 64456-1 [facility] 05/05 LDLc/HDL RATIO Value: 0.9 Units: Normal <4:1 Final 2951-2 [facility] 05/05 SODIUM Value: 143 Units: mEq/L Normal 136-145 Final 2822-3 [facility] 05/05 POTASSIUM Value: 4.1 Units: mEq/L Normal 3.5-5.3 Final 2074-0 [facility] 05/05 CHLORIDE Value: 98 Units: mEq/L Normal 98-110 Final 2028-06 [facility] 05/05 CARBON DIOXIDE (CO2) Value: 39 Units: mEq/L High 21-33 Final 3094-0 [facility] 05/05 BUN (UREA NITROGEN) Value: 21 Units: mg/dL Normal 7-25 Final 2160-0 [facility] 05/05 CREATININE Value: 1.3 Units: mg/dL Normal 0.6-1.3 Final 7 [facility] 05/05 GLUCOSE Value: 156 Units: mg/dL High Final GLUCOSE, FASTING 65-99 mg/dL GLUCOSE, NON-FASTING 65-125 mg/dL 10717-8 [facility] 05/05 CALCIUM Value: 8.5 Units: mg/dL Low 8.6-10.3 Final 76261-5 [facility] 05/05 eAG (Mean Glucose) Value: 120 Units: mg/dL Normal 70-120 Final 2091-04 [facility] 05/05 VLDLc Value: 11 Units: mg/dL Normal 5-30 Final 1974-11 [facility] 05/05 BILIRUBIN, TOTAL Value: 0.2 Units: mg/dL Normal 0.2-1.2 Final 2092-12 [facility] 05/05 CHOLESTEROL Value: 121 Units: mg/dL Normal <200 Final 2571-05 [facility] 05/05 TRIGLYCERIDE Value: 56 Units: mg/dL Normal <150 Final 2085-06 [facility] 05/05 HDL Value: 58 Units: mg/dL Normal >50 Final 23533-5 [facility] 05/05 LDL CALCULATED Value: 52 Units: mg/dL Normal <100 Final 54131-6 [facility] 04/29 XRAY CHEST 2 VIEW Completed Result for: AMBAR FERNANDEZ ( 1950, F) 54505-8 [facility] 04/29 XRAY CHEST 2 VIEW Final XRAY CHEST 2 VIEW Comparison: Compared to study performed on 01/15/2025. Reference: [id number] NoteFINDINGS : The heart is normal in size and configuratio n. The mediastinum is normal without adenopathy. The lung elizalde are clear without mass, infiltrate, congestion, or effusion. Bony structures are unremarkable without acute fracture or destructive lesions.CONC LUSION: No acute cardiopulmon weston disease seen.ELECTRO NICALLY SIGNED BY TESFAYE LANCE M.D. 04/29/2025 11:54:25 AM EDT.Reason for Study: R06.02 SHORTNESS OF BREATHPrinci pal Result Application Chemist: TESFAYE LANCE ([id number]) Dumper Mold Cleaner: PATRICIA LONGO (RREED)Trans cription Dumper Mold Cleaner: WYATT Test Code Code System Name Date CBC W/DIFF 05/26/2025 RENAL PANEL INCL GFR 025 CBC W/DIFF 05/26/2025 RENAL PANEL INCL GFR 025 05/26/2025 CBC W/DIFF 05/26/2025 05/26/2025 05/26/2025 MICROALBUMIN RANDOM 05/26/20 25 CBC W/DIFF 05/15/2025 CBC W/DIFF 05/05/2025 CMP-COMPREHENSIVE METABOLIC PNL 05/05/2025 05/05/2025 CBC W/DIFF 05/05/2025 GLYCO-HGBA1C 05/05/2025 CBC W/DIFF 05/05/2025 CMP-COMPREHENSIVE METABOLIC PNL 05/05/2025 CBC W/DIFF 05/05/2025 CMP-COMPREHENSIVE METABOLIC PNL 05/05/2025 LIPID PANEL w/calc LDL 05/05 CMP-COMPREHENSIVE METABOLIC PNL 05/05/2025 GLYCO-HGBA1C 05/05/2025 LIPID PANEL w/calc LDL 05/05 CMP-COMPREHENSIVE METABOLIC PNL 05/05/2025 LIPID PANEL w/calc LDL 05/0504/29/2025 Social History Social History Observation Description Start Date End Date Code Code System Current Smoking Status Tobacco smoking consumption unknown [id number] SNOMED CT Sex Assigned At Female 1950 31036-3 [facility] Gender Identity Vital Signs Code Code System Vitals Name Values and Units Timing Information 2339-0 [facility] Blood Sugar Huipk=175.0 Units=mg/dL 05/27/2025 9279-1 [facility] Respiratory Rate Value=20.0 Units=/m in 05/27/2025 8462-4 [facility] Blood Pressure-Diastolic Value=60 Un its=mmHg 05/27/2025 8480-6 [facility] Blood Pressure-Systolic Zqjut=451 Un its=mmHg 05/27/2025 8310-5 [facility] Body Temperature Value=98.4 Units= F 05/27/2025 8867-4 [facility] Heart rate Value=62.0 Units=/min 96739-8 [facility] O2 % [facility] Oximetry Value=93.0 Units= % 05/27/2025 25967-8 [facility] Pain Level Value=0.0 05/27/2025 87432-1 [facility] Weight Lazsd=577.2 Units=Lbs 01/2025 8302-2 LO[facility] Height Value=66.5 Units=Inches 11/09/2022
--- OUTSIDE RECORDS SUMMARY | 2025-06-02 09:32 | XMS_ITS | Clinical Summary ---
[facility] Address [address] [place] [address] Care Team Providers Care Tax Services Professional Name Role Phone Provider, No Known Primary Care Provider Unavail able Social History Tobacco Use Types Packs/Day Years Used Date Smoking Tobacco: Never Assessed Abuse Screen Answer Date Recorded Unsafe at Home or Work/School Not on file Feels Threatened by Someone? Not on file 08/2023 Does Anyone Keep You from Co ntacting Others or Doint Things Outside the Home? Not on file 07/19/2023 Physical Sign of Abuse Present Not on file 1 Housing Stability Answer Date Recorded Current Living Arrangements Not on file 07/09 Potentially Unsafe Housing Conditions Not on nuno e 07/19/2023 Family and Community Support Answer Taurus e Recorded Help with Day-to-Day Activities Not on file 07/19/2023 Lonely or Isolated Not on file 07/19/2023 Employment Answer Date Recorded Do you want help finding or keeping work or a imer b? Not on file 07/19/2023 Disabilities Answer Date Recorded Concentrating, Remembering, or Making Decisions Difficulty Not on file 07/19/2023 Doing Errands Independently Difficulty Not on fi le 07/19/2023 Education Answer Date Recorded Help with school or training? Not on file Preferred Language Not on file 07/19/2023 Comments Unknown Sex and Gender Information Value Date Recorded Sex Assigned at Not on file Legal Sex Female 1:01 PM EST Gender Identity Not on file Sexual Orientation Not on file Plan of Treatment Health Maintenance Due Date Last Done Comments ANNUAL PHYSICAL 1950 DXA SCAN 1950 HEPATITIS C SCREENING 1950 TDAP/TD VACCINES (1 - Tdap) 1968 Pneumococcal Vaccine 50+ (1 of 1 - PCV) 1999 ZOSTER VACCINE (1 of 2) 1999 RSV Vaccine - Adults (1 - 1-dose 75+ series) COVID-19 Vaccine (1 - 2023- season) 2024 INFLUENZA VACCINE 07/09/2025 Insurance [place]ICAID [place] [employer] [employer]ANT[place] Care Teams Tax Services Professional Relationship Specialty Start Date End Date Provider, No Known [facility] [place] [address] PCP - General 12/10/15
--- OUTSIDE RECORDS SUMMARY | 2025-06-02 09:32 | XMS_ITS | Clinical Summary ---
Author Organization Healthcare Address [address] [place] [address] Care Team Providers Care Mechanical Design Engineer Products Name Role Phone Tonya Freeman APRN Primary Care Provider + [phone] Social History Tobacco Use Types Packs/Day Years Used Date Smoking Tobacco: Never Assessed Comments Unknown Sex and Gender Information Value Date Recorded Sex Assigned at Not on file Legal Sex Female 7:29 PM EDT Gender Identity Not on file Sexual Orientation Not on file Plan of Treatment Not on file Care Teams Mechanical Design Engineer Products Relationship Specialty Start Date End Date Tonya Freeman APRN [address] [place] [address] PCP - General 02/19/21
--- OUTSIDE RECORDS SUMMARY | 2025-06-02 09:33 | XMS_ITS ---
Author Organization [facility] Care Team Providers Care Broadcast Field Supervisor Name Role Phone Joe, Robbie Unavailable Unavailable Gladys Dixon Unavailable Unavailable Nancy Cm Unavailable Unavailable Angella Lim Unavailable Unavailable Jp Delgado Unavailable Unavailable Allergies and adverse reactions Code CodeSystem Substance Reaction Severity StartDate Concern Status [place] Moderate 11/08/2022 active 879024 RXNORM SITagliptin Unknown 11/08/[address] Penicillins Unknown 11/08/2022 activ e 7804 RXNORM oxyCODONE Unknown 11/08/2022 active 6809 RXNORM metFORMIN Unknown 11/08/2022 active Januvia Unknown 11/09/2022 active Care Team Name Role Address Phone Organization [place], [address], [facility] (Office): [facility] 11/01/2024 - present Falicia Stock [address] [facility], [place], [address], [facility] 11/01/2024 - present Gladys Dixon [address], [address] (Office): : [facility] 11/01/2024 - present Nancy Cm [address] 11/01/2024 - present Angella Lim [address] [place] [address], [address] (Office): : [facility] 11/01/2024 - present Goals Section Goals Description Status Target Date The resident will maintain l ab values within acceptable parameters per MD through review date. Active 05/09/2025 4.)BLE weeping without complications through nex t review date Active 05/09/2025 [place] Resident's Advanced Di rective decisions and/or code status through next review Active 05/09/2025 Medication benefits with no adverse effects through the review date. Active 05/09/2025 Needs will be communicated/met through the revie w date. Active 05/09/2025 No s/s of hypo/hyperglycemia through the review date. Active 05/09/2025 Optimal cognition will be ma intained with no avoidable decline through the review date. Active 05/09/2025 Optimal visual ability will be maintained throug h the review date. Active 05/09/2025 Resident Will Experience Weight Reduction Active 05/09/2025 Resident risk for unavoidabl e skin breakdown will be reduced with nursing interventions through review date. Active 05/09/2025 Resident will be clean warm and odor free through adequate toileting and Perineal Care through the review date Active Resident will have adequate bowel elimination AEB: r egular bowel movements at least every 3rd day through the review date. Active 05/09/2025 Resident will have decreased risk for falls through nursing interventions through the review date. Active 05/09/2025 Resident will not exhibit s/ s of recurring infection through next review Active 05/09/2025 Resident/family will verbali ze understanding of the residents risk for unavoidable skin breakdown through review date. Active Special Precautions will be followed by resident, visitors and staff through the review date. Active 05/09/2025 The resident will become com fortable in their environment through the review date. Active 05/09/2025 The resident will display op timal breathing pattern daily through review date. Active 05/09/2025 The resident will have no in dications of psychosocial well being problem by/through review date. Active 05/09/2025 The resident will maintain n ormal breathing pattern as evidenced by normal respirations, normal skin color, and regular respiratory rate/pattern through the review date. Active 05/09/2025 The resident will maintain o ptimal status and quality of life within limitations imposed by neurological deficits through review date. Active 05/09/2025 The resident will remain pablo e from discomfort, complications or s/sx related to dx of GERD through review date. Active 2024 Weight loss desired per resident through review date. Active 05/09/2025 Will achieve/maintain maximu m functional mobility through the review date. Active 05/09/2025 Will attend/participate in a ctivities of choice through the review date. Active 05/09/2025 Will consume adequate fluids to maintain hydration through the review date. Active 05/09/2025 Will follow center policy & procedures through t he review date. Active 05/09/2025 Will have needs met by [place] of staff as needed through the review date. Active 05/09/2025 Will have no cardiac complications through the r eview date. Active 05/09/2025 Will have reduction of behav ioral episodes through the review date. Active 05/09/2025 Will not exhibit an avoidabl e decline in mood through the review date. Active 05/09/2025 reduce the development of complications through the review date Active 05/09/2025 will not have interruption i n normal activities due to pain through the review date Active 05/09/2025 Immunizations Immunization Status Vaccine Details Vaccine Code CodeSystem Date Notes Influenza completed Influenza, high-dose, split virus, quadrivalent, injectable, preservative free lotNumber: [id number] expiry: 02/11/2025 Mfg: galileo Given 0.5 ml Right Deltoid intramuscularly 197 CVX created date: 07/25/2024 consent date: 07/25/2024 administer ed date: 07/25/2024 Educated by luis e on 07/25/2024 Influenza completed Influenza, high-dose, split [...] completed tuberculin skin test; unspecified formulation lotNumber: [id number] expiry: 02/06/2026 Mfg: Aplisol Given 0.1 ml Right Forearm intradermally 98 CVX created date: 11/01/2024 consent date: 11/01/2024 administer ed date: 11/01/2024 Educated by on 11/04/2024 TB 1 Step Mantoux (PPD) completed tuberculin skin test; unspecified formulation lotNumber: [id number] expiry: 09/08/2025 Mfg: Tubersol Given 0.1 ml Left Forearm intradermally 98 CVX created date: 01/31/2024 consent date: 01/31/2024 administer ed date: 01/31/2024 Educated by Estela Lim LPN on 01/31/2024 TB 1 Step Mantoux (PPD) completed tuberculin skin test; unspecified formulation lotNumber: [id number] expiry: 06/09/2024 Mfg: Par [employer] Given 0.1 [...] completed tuberculin skin test; unspecified formulation lotNumber: [id number] expiry: 03/08/2024 Mfg: Tubercuin Given 0.1 ml [...] completed Pneumococcal conjugate vaccine 20-valent (PCV20), polysaccharide [id number] conjugate, adjuvant, preservative free lotNumber: [id number] expiry: 11/09/2025 Mfg: Prevnar 20 Given 0.5 [...] date: 08/02/2024 Educated by on 08/05/2024 Moderna cancelled SARS-COV-2 (COVID-19) vaccine, subunit, recombinant spike protein-nanopartic le+Matrix-M1 Adjuvant, preservative free, 0.5mL dose 211 CVX created date: 04/16/2024 consent date: 04/16/2024 Educated by on 04/16/2024 Medications Section Medication Name Status Code CodeSystem Dose Route Frequency Admin Type Sig Text Start Date End Date Biofreeze Cool The Pain External Cream 10 % active n/a n/a Topical as needed PRN Apply to lower back topica lly every 12 hours as needed for pain 2024 - FiberCon Oral Tablet 625 MG active 309115 RXNORM 1 tablet Oral one time a day Routine Give 1 tablet by mouth one time a day for consti pation 2024 - Aspirin Oral Tablet Chewable 81 MG active 784634 RXNORM 1 tablet Oral one time a day Routine Give 1 tablet by mouth one time a day for Heart diseas e 2024 - Nadolol Oral Tablet 20 MG active RXNORM 1 tablet Oral two times a day Routine Give 1 tablet by mouth two times a day for HTN relate d to PORTAL HYPERT ENSION (K76.6 ) 2024 - Ferrous Sulfate Oral Tablet 325 (65 Fe) MG active 562766 RXNORM 1 tablet Oral two times a day Routine Give 1 tablet by mouth two times a day for supple ment 01/25/ 2025 - Acetaminophen Oral Tablet 500 MG active 250579 RXNORM 1 tablet Oral as needed PRN Give 1 tablet by mouth every 8 hours as needed for Pain/t emp 2024 - Vitamin D3 Oral Tablet 25 MCG active 1 tablet Oral one time a day Routine Give 1 tablet by mouth one time a day for vit defici ency relate d to OTHER SPECIF IED DISORD ERS INVOLV ING THE 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 ISM, NOT ELSEWH ERE CLASSI FIED (D89.8 9) 2024 - Bisacodyl EC Oral Tablet Delayed Release 5 MG active 1 tablet Oral as needed PRN Give 1 tablet by mouth every 24 hours as needed for consti pation 2024 - Cetirizine HCl Oral Tablet 10 MG active 355955 8 RXNORM 1 tablet Oral one time a day Routine Give 1 tablet by mouth one time a day for Allerg ies 2024 - Gabapentin Oral Capsule 300 MG active 288678 RXNORM 1 capsul e Oral three times a day Routine Give 1 capsul e by mouth three times a day for Neurop athy 2024 - Pramipexole Dihydrochlori de Oral Tablet 0.125 MG active 964422 RXNORM 1 tablet Oral at bedtime Routine Give 1 tablet by mouth at bedtim e for Gertrude son like syndro me 2024 - Lisinopril Oral Tablet 20 MG active 148493 RXNORM 1 tablet Oral one time a day Routine Give 1 tablet by mouth one time a day for HTN relate d to PORTAL HYPERT ENSION (K76.6 ) 2024 - Montelukast Sodium Oral Tablet 10 MG active 075084 RXNORM 1 tablet Oral at bedtime Routine Give 1 tablet by mouth at bedtim e for Allerg ies 2024 - oxyBUTYnin Chloride ER Oral Tablet Extended Release 24 Hour 10 MG active 760635 RXNORM 1 tablet Oral one time a day Routine Give 1 tablet by mouth one time a day for Overac tive bladde r 2024 - Protonix Oral Tablet Delayed Release 40 MG active 774902 RXNORM 1 tablet Oral one time a day Routine Give 1 tablet by mouth one time a day for GERD 2024 - Roflumilast Oral Tablet 500 MCG active 040578 9 RXNORM 1 tablet Oral one time a day Routine Give 1 tablet by mouth one time a day for COPD 2024 - Potassium Chloride ER Oral Tablet Extended Release 20 MEQ active 384394 RXNORM 1 tablet Oral one time a day Routine Give 1 tablet by mouth one time a day for supple ment 2024 - Fleet Enema Enema 7-19 GM/118ML active 406603 RXNORM 1 applic ation Rectal as needed PRN Insert 1 applic ation rectal ly as needed for Consti pation Admini ster one enema if no BM 12 hours after Dulcol ax suppos itory 2024 - Venlafaxine HCl Oral Tablet 75 MG aborted 995564 RXNORM 1 tablet Oral one time a day Routine Give 1 tablet by mouth one time a day for depres baylee 04/17 Senna Tablet 8.6 MG active 424893 RXNORM 2 tablet Oral as needed PRN Give 2 tablet by mouth as needed for Consti pation Take 2 tablet s once daily prn for no bowel moveme nt in 3 days 2024 - Dulcolax Suppository active 1 suppos itory Rectal as needed PRN Insert 1 suppos itory rectal ly as needed for Consti pation Insert 1 suppos itory LA daily prn if no bowel moveme nt 24 hours after Senna 2024 - Acetaminophen -Codeine Oral Tablet 300-15 MG active 386784 RXNORM 1 tablet Oral as needed PRN Give 1 tablet by mouth every 8 hours as needed for pain 2024 - BD AutoShield Duo Miscellaneous 30G X 5 MM active 1 applic ator Subcuta neous four times a day Routine Inject 1 applic ator subcut aneous ly four times a day for DM 2 2024 - NovoLOG FlexPen Subcutaneous Solution Pen-injector 100 UNIT/ML active 611100 4 RXNORM n/a n/a Subcuta neous before meals and at bedtime Routine Inject as per richelle squires scale: if 200 - 249 = 2; 250 - 299 = 4; 300 - 349 = 6; 350 - 399 = 8; 400 - 449 = 10; 450 - 499 = 12 and notify , subcut aneous ly before meals and at bedtim e for DM2 2024 - Torsemide Oral Tablet 100 MG active RXNORM 50 mg Oral one time a day Routine Give 50 mg by mouth one time a day for Edema GIVE HALF tablet 2024 - Insta-Glucose Gel 77.4 % active 404108 2 RXNORM 1 dose Oral as needed [...] Keep pt.in bed/ch air for safety . 2024 - 582286 2 RXNORM 1 dose Oral as needed [...] Keep pt.in bed/ch air for safety . 2024 - Glucagon Emergency Kit 1 MG active 690606 RXNORM 1 mg Intramu scular as needed [...] pt. in bed/ch air for safety . 2024 - 846063 RXNORM 1 mg Intramu scular as needed PRN Inject 1 mg intram uscula rly every 24 hours as needed for BG less than 70, Not arousa ble consci ous or able to swallo w Hold all diabet ic meds until provid er author constantin resump tion, remain with pt.and keep in [...] pt. in bed/ch air for safety . 2024 - Multivitamin- Minerals Oral Tablet active 1 tablet Oral one time a day Routine Give 1 tablet by mouth one time a day for low albumi n/pmh 2024 - Incruse Ellipta Inhalation Aerosol Powder Breath Activated 62.5 MCG/ACT active 983690 5 RXNORM 1 puff Inhalat ion one time a day Routine 1 puff inhale orally one time a day for COPD 2024 - Hair Skin and Nails Formula Oral Tablet active 1 tablet Oral one time a day Routine Give 1 tablet by mouth one time a day for dry brittl e hair, skin and nails 2024 - Nitroglycerin Sublingual Tablet Sublingual 0.4 MG active 424660 RXNORM 1 tablet Subling ual as needed PRN Give 1 tablet sublin gually every 5 minute s as needed for chest pain give 1 tablet every 5 minute s for 3 doses 2024 - Albuterol Sulfate HFA Inhalation Aerosol Solution 108 (90 Base) MCG/ACT active 511746 RXNORM 2 puff Inhalat ion as needed PRN 2 puff inhale orally every 6 hours as needed for COPD 2024 - traZODone HCl Oral Tablet 50 MG active 354933 RXNORM 1 tablet Oral at bedtime Routine Give 1 tablet by mouth at bedtim e for insomn ia 2024 - Symbicort Inhalation Aerosol 160-4.5 MCG/ACT active 634653 6 RXNORM 2 puff Inhalat ion two times a day Routine 2 puff inhale orally two times a day for COPD, asthma Remind er that the reside nt's mouth should be rinsed out after use to avoid oral thrush from develo ping. 2024 - NovoLOG Mix 70/30 FlexPen Subcutaneous Suspension Pen-injector (70-30) 100 UNIT/ML active 165413 RXNORM 24 unit Subcuta neous two times a day Routine Inject 24 unit subcut aneous ly two times a day for DM2 with breakf ast and supper . hold is BS is <100 2024 - Plavix Oral Tablet 75 MG active 630104 RXNORM 1 tablet Oral one time a day Routine Give 1 tablet by mouth one time a day for PAD 2024 - Insulin Glargine Subcutaneous Solution Pen-injector 100 UNIT/ML aborted 442477 RXNORM 22 unit Subcuta neous two times a day Routine Inject 22 unit subcut aneous ly two times a day for DM 2 04/03 Albuterol Sulfate Inhalation Nebulization Solution aborted 1 unit Inhalat ion as needed PRN 1 unit inhale orally via nebuli zer every 8 hours as needed for SOB 04/29 Cough Drops Mouth/Throat Lozenge 5 MG active 1 lozeng e Oral as needed PRN Give 1 lozeng e by mouth every 2 hours as needed for cough may have at bedsid eGiselle Cheathams janet 2024 - Lantus SoloStar Subcutaneous Solution Pen-injector 100 UNIT/ML active 337598 RXNORM 22 unit Subcuta neous two times a day Routine Inject 22 unit subcut aneous ly two times a day for DM type 2 2024 - Nystatin Powder active n/a n/a Topical as needed PRN Apply to red areas topica lly as needed for rednes s 2024 - Venlafaxine Besylate ER Oral Tablet Extended Release 24 Hour 112.5 MG aborted 911842 0 RXNORM 1 tablet Oral one time a day Routine Give 1 tablet by mouth one time a day for depres baylee 04/17 Venlafaxine Besylate ER Oral Tablet Extended Release 24 Hour 112.5 MG active 417840 0 RXNORM 1 tablet Oral one time a day Routine Give 1 tablet by mouth one time a day for depres baylee 2024 - Venlafaxine HCl Oral Tablet 75 MG complete d 989952 RXNORM 1 tablet Oral one time a day Routine Give 1 tablet by mouth one time a day for depres baylee for 2 Days 04/19 Albuterol Sulfate Inhalation Nebulization Solution active 1 applic ation Inhalat ion every 6 hours Routine 1 applic ation inhale orally via nebuli zer every 6 hours for shortn ess of breath 2024 - Azithromycin Oral Tablet 500 MG active 608013 RXNORM 1 tablet Oral one time only One Time Only Give 1 tablet by mouth one time only for copd exacer bation for 1 Day 04/30 Sodium Chloride Intravenous Solution 0.45 % active 177612 8 RXNORM 50 ml/hr Intrave nous one time only One Time Only Use 50 ml/hr intrav enousl y one time only for dehydr ation for 1 Day Run @ 50 ml/hr x 1 liter 04/30 SOLU-Medrol (PF) Injection Solution Reconstituted 125 MG active 680768 7 RXNORM 125 mg Intramu scular one time only One Time Only Inject 125 mg intram uscula rly one time only for copd exacer bation for 1 Day 04/305 Mental Status Section Date Assessment Total Score Description 02/04/2025 BIMS 15 cognitively int act CAM 0 No delirium ind icated PHQ-9 08 mild depression 11/04/2024 BIMS 15 cognitively int act CAM 0 No delirium ind icated PHQ-9 12 moderate depres baylee Problems Problem # Description Date of onset Resolved Date Code CodeSystem Concern Status 1 GENERALIZED ANXIETY DISORDER 02/01/[address] active 2 MAJOR DEPRESSIVE DISORDER, RECURRENT, UNSPECIFIED 01/29/[address] active 3 BODY MASS INDEX [BMI]40.0-44.9, ADULT 01/28/[address] active 4 MORBID (SEVERE) OBESITY DUE TO EXCESS CALORIES 01/28/[address] active 5 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 11/01/[address] active 6 ACUTE ON CHRONIC SYSTOLIC (CONGESTIVE) HEART FAILURE 11/01/[address] active 7 HEART FAILURE, UNSPECIFIED 11/01/[address] active 8 OTHER ABNORMALITIES OF GAIT AND MOBILITY 11/01/[address] active 9 PORTAL HYPERTENSION 11/01/[address] active 10 PAIN IN RIGHT UPPER ARM 06/27/[address] active 11 WEAKNESS 06/27/[address] active 12 OBESITY, UNSPECIFIED 05/21/[address] active 13 PERSONAL HISTORY OF OTHER INFECTIOUS AND PARASITIC DISEASES 04/18/[address] active 14 OTHER LOW BACK PAIN 10/20/[address] active 15 CHRONIC KIDNEY DISEASE, UNSPECIFIED 06/29/[address] active 16 OVERACTIVE BLADDER 05/11/[address] active 17 RESPIRATORY DISORDERS IN DISEASES CLASSIFIED ELSEWHERE 05/11/2009/02/[address] completed 18 VITAMIN D DEFICIENCY, UNSPECIFIED 05/11/[address] active 19 HYPOKALEMIA 04/07/[address] active 20 ESSENTIAL (PRIMARY) HYPERTENSION 03/22/[address] active 21 GASTRO-ESOPHAGEAL REFLUX DISEASE WITHOUT ESOPHAGITIS 02/08/[address] active 22 ACUTE RESPIRATORY FAILURE WITH HYPOXIA 02/07/20 23 01/07/[address] completed 23 ANEMIA, UNSPECIFIED 02/07/[address] active 24 CHRONIC OBSTRUCTIVE PULMONARY DISEASE, UNSPECIFIED 02/07/[address] active 25 METABOLIC ENCEPHALOPATHY 02/07/20 23 08/17/[address] completed 26 POLYNEUROPATHY, UNSPECIFIED 02/07/[address] active 27 RESTLESS LEGS SYNDROME 02/07/[address] active 28 SEPSIS, UNSPECIFIED ORGANISM 02/07/20 23 05/30/[address] completed 29 CHRONIC KIDNEY DISEASE, STAGE 4 (SEVERE) 12/21/[address] active 30 ACUTE KIDNEY FAILURE, UNSPECIFIED 11/08/19 23 05/30/[address] completed 31 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 11/08/[address] active 32 ATHEROSCLEROTIC HEART DISEASE [place] CORONARY ARTERY WITHOUT ANGINA PECTORIS 11/08/[address] active 33 CELLULITIS OF UNSPECIFIED PART OF LIMB 11/08/19 23 05/30/[address] completed 34 CHRONIC OBSTRUCTIVE PULMONARY DISEASE WITH (ACUTE) EXACERBATION 11/08/[address] active 35 DEPRESSION, UNSPECIFIED 11/08/[address] active 36 DIFFICULTY IN WALKING, NOT ELSEWHERE CLASSIFIED 11/08/[address] active 37 DYSPHAGIA, OROPHARYNGEAL PHASE 11/08/[address] active 38 DYSURIA 11/08/[address] active 39 EDEMA, UNSPECIFIED 11/08/[address] active 40 HYPERLIPIDEMIA, UNSPECIFIED 11/08/[address] active 41 HYPO-OSMOLALITY AND HYPONATREMIA 11/08/[address] active 42 METATARSALGIA, LEFT FOOT 11/08/[address] active 43 METATARSALGIA, RIGHT FOOT 11/08/[address] active 44 MUSCLE WEAKNESS (GENERALIZED) 11/08/[address] active 45 NAIL DYSTROPHY 11/08/[address] active 46 NICOTINE DEPENDENCE, CIGARETTES, UNCOMPLICATED 11/08/[address] active 47 OBSTRUCTIVE SLEEP APNEA (ADULT) (PEDIATRIC) 11/08/[address] active 48 OTHER SPECIFIED DISEASES OF INTESTINE 11/08/[address] active 49 OTHER SPECIFIED DISORDERS INVOLVING THE 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ISM, NOT ELSEWHERE CLASSIFIED 11/08/[address] active 50 PNEUMONIA, UNSPECIFIED ORGANISM 11/08/1905/30/[address] completed 51 TYPE 2 DIABETES MELLITUS WITHOUT COMPLICATIONS 11/08/[address] active 52 UNSPECIFIED ASTHMA, UNCOMPLICATED 11/08/[address] active 53 UNSPECIFIED CIRRHOSIS OF LIVER 11/08/[address] active 54 UNSPECIFIED DIASTOLIC (CONGESTIVE) HEART FAILURE 11/08/[address] active 55 UNSPECIFIED KIDNEY FAILURE 11/08/1905/30/[address] completed 56 UNSTEADINESS ON FEET 11/08/[address] active 57 URINARY TRACT INFECTION, SITE NOT SPECIFIED 11/08/1905/30/[address] completed Reason for Referral No Reasons for Referral Entered Diagnostic Results Result Code Code System Date Test Result Interpretation Reference Range Status Notes [id number] LOINC 2024 BASIC MET PNL INCL GFR (BMP) / B-NATRIURETI C PEP (BNP) Completed Result for: FERNANDEZ, AMBAR ( 1950 , F) 3097-3 LOINC 2024 BUN/CREATINI NE RATIO Value: 16 Units: Normal 6-25 Final 2951-2 LOINC 2024 SODIUM Value: 141 Units: mEq/L Normal 136-145 Final 2823-3 LOINC 2024 POTASSIUM Value: 4.2 Units: mEq/L Normal 3.5-5.3 Final 2074-0 LOINC 2024 CHLORIDE Value: 99 Units: mEq/L Normal 98-110 Final 2027- LOINC 2024 CARBON DIOXIDE (CO2) Value: 37 Units: mEq/L High 21-33 Final 3094-0 [facility] 2024 BUN (UREA NITROGEN) Value: 19 Units: mg/dL Normal 7-25 Final 2160-0 [facility] 2024 CREATININE Value: 1.2 Units: mg/dL Normal 0.6-1.3 Final 2345-7 [facility] 2024 GLUCOSE Value: 115 Units: mg/dL High Final GLUCOSE, FASTING 65-99 mg/dL GLUCOSE, NON-FASTI NG 65-125 mg/dL 43422-8 [facility] 2024 CALCIUM Value: 8.5 Units: mg/dL Low 8.6-10.3 Final 77053-9 [facility] 2024 GFR- Value: 53 Units: mL/min/ {1.73_m 2} Low >60 Final 45487-2 [facility] 2024 DKI-NOM-VQJA CAN SWISS Value: 44 Units: mL/min/ {1.73_m 2} Low >60 Final Stage of CKD eGFR (mL/min/1 .73 square meters) Stage 1 >/= 90 or > 90 Stage 2 60 - 89 Stage 3 30 - 59 Stage 4 15 - 29 Stage 5 </= 14 or < 15 GFR is reliable for adults 17 to 69 years with stable kidney function. 88240-8 [facility] 2024 B-NATRIURETI C PEP (BNP) Value: 165 Units: pg/mL High 1-100 Final Test Code Code System Name Date BASIC MET PNL INCL GFR (BMP) 04/09/2025 04/09/2025 Social History Social History Observation Description Start Date End Date Code Code System Current Smoking Status Tobacco smoking consumption unknown 311582903 SNOMED CT Sex Assigned At Female 1950 88251-1 [facility] Gender Identity Vital Signs Code Code System Vitals Name Values and Units Timing Information 2339-0 [facility] Blood Sugar Zqaju=282.0 Units=mg/dL 04/29/2025 60961-9 [facility] Pain Level Value=1.0 04/29/2025 9279-1 [facility] Respiratory Rate Value=18.0 Units=/m in 04/29/2025 8462-4 [facility] Blood Pressure-Diastolic Value=62 Un its=mmHg 04/29/2025 8480-6 [facility] Blood Pressure-Systolic Eoirw=584 Un its=mmHg 04/29/2025 8310-5 [facility] Body Temperature Value=97.0 Units= F 04/29/2025 8867-4 [facility] Heart rate Value=72.0 Units=/min 85687-8 [facility] O2 % BldC Oximetry Value=98.0 Units= % 04/29/2025 90262-9 [facility] Weight Zznyi=558.6 Units=Lbs 11/2024 8302-2 [facility] Height Value=66.5 Units=Inches 11/09/2022
[2025-06-02 09:42] LABS: Albumin Level 3.1 g/dl (3.5-5.0); Chloride 100 mmol/L (98-107); Potassium 4.2 mmoL/L (3.5-5.1); Sodium 139 mmol/L (136-145)
[2025-06-02 09:44] LABS: Blood Urea Nitrogen 31 mg/dl (7-17); Creatinine,Serum 1.00 mg/dl (0.52-1.04); Estimated Glomerular Filt Rate 54 ml/min (>60); GFR (African American) 65 ML/MIN (>60)
[2025-06-02 09:45] LABS: Alanine Aminotransferase 10 U/L (12-78); Albumin/Globulin Ratio 1.1 (1.1-1.8); Alkaline Phosphatase 138 U/L (38-126); Anion Gap 8.2 mEq/L (5-15); Aspartate Amino Transferase 32 U/L (14-36); Bilirubin,Total 0.2 mg/dl (0.2-1.3); Calcium 9.0 mg/dl (8.4-10.2); Carbon Dioxide 35 mmol/L (22.0-30.0); Cholesterol 131 mg/dl (140-200); Globulin 2.8 g/dL (1.3-3.2); Glucose 75 mg/dl (74-100); HDL Cholesterol 64 mg/dl (40-60); Total Protein,Serum 5.9 g/dl (6.3-8.2); Triglycerides 63 mg/dl (30-150)
[2025-06-02 10:06] LABS: Free T4 (Free Thyroxine) 1.39 ng/dl (0.78-2.19)
[2025-06-02 10:15] LABS: Thyroid Stimulating Hormone 1.20 uIU/mL (0.465-4.68)
[2025-06-02 10:36] LABS: Hemoglobin A1C 5.7 % (4.0-6.0)
== END 2025-06-02 23:59 | disposition home or self-care (01) ==
PROVIDERS: PCP Family Medicine; Visit Provider Family Medicine
DX: J44.9 Chronic obstructive pulmonary disease, unspecified (principal); E11.65 Type 2 diabetes mellitus with hyperglycemia; E78.5 Hyperlipidemia, unspecified
CPT/HCPCS: 36415; 80053; 80061; 83036; 84439; 84443; 85025

== ENCOUNTER 2025-06-06 14:10 | Outpatient (CLI) | payer MEDICARE, MEDICAID, SELFPAY ==
--- OUTSIDE RECORDS SUMMARY | 2025-03-28 05:50 | XMS_ITS | Continuity of Care Document ---
Author Organization [address] [place] [address] [address] [place] [address] Phone Care Team Providers Care Technology Analyst Name Role Phone Tucker HARLEYAida Ulloa Unavailable [...] Call Periodic Oral Evaluation Reline Complete Man [place] Chair Adjust Complete Denture Maxil Compsve Oral Eval- New/Est Pat Complete Series Of Radiographic Images N Replace Broken Teeth-Per Tooth 23 FUNDUS PHOTOGRAPHY EYE EXAM NEW PATIENT Advance Directives Directive Yes / No Effective Date File Name No Information Encounters Encounter Description Practice Location Reason(s) For Visit Diagnoses Date Provider Providers Copied on Encounter [address] [place] [address], [address] [facility] [address], [place], [id number], tel:[phone] [facility] Encounter for dental examination and cleaning without abnormal findings Tucker Parra. [address] [facility], [address], [address], [place], [place], [id number], . tel:[phone] Referring Provider: Arabella Jonas. [address] [place] [address], [address] [facility] [address], [place], [place], [id number], tel:[phone] [facility] Encounter for fitting and adjustment of dental prosthetic deviceEncount er for dental examination and cleaning without abnormal findings 4 Guille Polanco. . Referring Provider: Arabella Jonas. [address] [place] [address], [address] [facility], [place], [place], [id number], tel:[phone] [facility] Encounter for dental examination and cleaning without abnormal findingsEncou nter for fitting and adjustment of dental prosthetic device 4 Deann Rhodes. [address] [facility], [address], [place], [place], [id number], [place]. tel:[phone] Referring Provider: Arabella Jonas. [address] [place] [address], [address] [facility], [place], [place], [id number], [place] tel:[phone] [facility] No Information 4 [place] Elias Trammell. [address] [facility], [address], [place], [address], [place]. tel:[phone] [place] [address], [address] [facility], [place], [place], [id number], [place] tel:[phone] [facility] Encounter for dental examination and cleaning without abnormal findingsEncou nter for fitting and adjustment of dental prosthetic device 3 Gonzales Smith. [address] [facility], [address], [address], [place], [place], [address], [place]. tel:[phone] Referring Provider: Arabella Jonas. [address] [place] [address], [address] [facility], [place], [place], [id number], [place] tel:[phone] [facility] Diabetic eye exam (chief complaint) Type 2 diabetes mellitus without complications Vitreous degeneration, left eye 3 Herminio Betancourt. , [place]. Referring Provider: Arabella Jonas. Family History Family Member Type Diagnosis Age At Onset No Information Payers Payer name Insurance type Covered libertarian ID Authoriza tion(s) DDS [employer] Medicare Adv ZZ [id number] DDS Medicaid [facility] [id number] Social History Type Description Quantity Date Captured Comments Sex Female Smoking Status No Information Chief Complaint And Reason For Visit No Information Reason For Referral Reason For Referral No Information Plan Of Treatment Date Type Action Status Appointment Ambar Fernandez BOOKED Patient Education Learning [...] 2 diabetes mellitus without complications Impression/Plan - No active diabetic retinopathy present in either eye. We will monitor at regular intervals. Related to Type 2 diabetes mellitus without complications Impression/Plan - Vi treous floaters are present; however, no holes, breaks, or tears are evident. Related to Vitreous degeneration, left eye Assessments Type Assessment Date No Information Patient Care Teams Name Effective Dates (start - stop) Status Members No Information
--- OUTSIDE RECORDS SUMMARY | 2025-06-06 14:14 | XMS_ITS | Clinical Summary ---
Author Organization [employer] ([place], [place], [place], [place]) Address [address] [place] [address] Care Team Providers Care Physical Science Technician Name Role Phone Unavailable Primary Care Provider [...] (02/01/2023): Added automatically from request for surgery [id number] Social History Tobacco Use Types Packs/Day Years [...] Date Garcia rded Speak language other than Bolivian at home Not on file 10/27/2023 Want [...] A1C 8.0 % 02/02/2023 11:14 AM EDT [facility] Comment: Hemoglobin A1C levels are related to mean glucose during the preceding 2-3 months. Less than 7% demonstrates glycemic control in diabetic patients. Hemoglobin AlC % Suggested Diagnosis > or = 6.5 Diabetic 5.7 - 6.4 Prediabetic <5.7 Non-diabetic eAVG Glucose 182.9 mg/dL 02/02/2023 11:14 AM EDT [facility] Blood Venipuncture / Unknown 02/02/2023 3:00 AM EDT 02/02/2023 3:05 AM EDT Marylou Werner MD LAB BLOOD ORDERABLES Final R esult [facility] [address] [phone] from Last 3 Months or Most Recently Relevant to Health Maintenance Insurance HUMANA MEDICARE PPO MEDICAID OF [place] Advance Directives For more information, please contact: [phone] Documents on File Type Date Recorded 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 May use BiPAP/CPAP Call FENCE INSTALLER FOREMAN * Full Code Date Activated Date Inactivated Comments 01/31/2023 8:28 PM 01/31/2023 9:46 PM Healthcare Agents on File Name Relationship Healthcare Agent Relationshi p Communication Rafael Fernandez Son First Alternate Healthcare Decision-Maker Cony Rebecca [id number] Second Alternate Healthcare Decision-Maker
--- OUTSIDE RECORDS SUMMARY | 2025-06-06 14:14 | XMS_ITS | Clinical Summary ---
[facility] Organization [facility] Address [address] [place] [address] Care Team Providers Care Supervisor Compounding And Finishing Name Role Phone Provider, No Known Primary [...] season) 2024 INFLUENZA VACCINE 07/09/2025 Insurance MEDICAID [place] ZZZHUMANA MEDICARE ADVANTAGE Care Teams Supervisor Compounding And Finishing Relationship Specialty Start Date End Date Provider, No Known [facility] [place] [address] PCP - General 12/10/15
--- OUTSIDE RECORDS SUMMARY | 2025-06-06 14:14 | XMS_ITS | Clinical Summary ---
Author Organization Healthcare Address [address] [place] [address] Care Team Providers Care Server Administrator Name Role Phone Toyna Freeman APRN Primary Care Provider + [phone] Social History Tobacco Use Types Packs/Day Years Used Date Smoking Tobacco: Never Assessed Comments Unknown Sex and Gender Information Value Date Recorded Sex Assigned at Not on file Legal Sex Female 7:29 PM EDT Gender Identity Not on file Sexual Orientation Not on file Plan of Treatment Not on file Care Teams Server Administrator Relationship Specialty Start Date End Date Tonya Freeman APRN [address] [place] [address] PCP - General 02/19/21
--- OUTSIDE RECORDS SUMMARY | 2025-06-06 14:14 | XMS_ITS | Referral Summary ---
Author Organization [facility] ([place], [place], [place], [place]) Address [address] [place] [address] Care Team Providers Care Dairy Quality Assurance Officer Name Role Phone Unavailable Primary Care Provider [...] (02/01/2023): Added automatically from request for surgery [id number] Social History Tobacco Use Types Packs/Day Years [...] Date Garcia rded Speak language other than French at home Not on file 10/27/2023 Want [...] A1C 8.0 % 02/02/2023 11:14 AM EDT [facility] Comment: Hemoglobin A1C levels are related to mean glucose during the preceding 2-3 months. Less than 7% demonstrates glycemic control in diabetic patients. Hemoglobin AlC % Suggested Diagnosis > or = 6.5 Diabetic 5.7 - 6.4 Prediabetic <5.7 Non-diabetic eAVG Glucose 182.9 mg/dL 02/02/2023 11:14 AM EDT [facility] Blood Venipuncture / Unknown 02/02/2023 3:00 AM EDT 02/02/2023 3:05 AM EDT Marylou Werner MD LAB BLOOD ORDERABLES Final R esult [facility] [address] [phone] from Last 3 Months or Most Recently Relevant to Health Maintenance Insurance HUMANA MEDICARE PPO MEDICAID OF [place] Advance Directives For more information, please contact: [phone] Documents on File Type Date Recorded Patient Home Health Care Coordinator Expl anation Power of Dispensing Optician 01/31/2023 * DNR - Limited Additional Intervention (Latest Code Status on File) Date Activated Date Inactivated Comments 01/31/2023 9:46 PM 02/06/2023 5:29 PM If no pulse: NO intervention If has pulse: NO Intubation. May use BiPAP/CPAP Call SEAT TRIMMER * Full Code Date Activated Date Inactivated Comments 01/31/2023 8:28 PM 01/31/2023 9:46 PM Healthcare Agents on File Name Relationship Healthcare Agent Relationshi p Communication Rafael Fernandez Son First Alternate Healthcare Decision-Maker Cony Fernandez [id number] Second Alternate Healthcare Decision-Maker
--- OUTSIDE RECORDS SUMMARY | 2025-06-06 14:14 | XMS_ITS | Clinical Summary ---
Author Organization [facility] Address [address] [place] [address] Phone Care Team Providers Care Lead Software Tester Name Role Phone Marylou Werner MD [ ] Conditions or Problems Problem Name Problem Code Onset Date Status Entry Date Provider Comment Standard Description Annotate GERD 919245254 (SNOMED CT) 12/09 Active 12/09 Joshua Schmid MD Gastroesophageal reflux disease Tobacco abuse 57913996 (SNOMED CT) 12/09 Active 12/09 Joshua Schmid MD Tobacco dependence syndrome Diarrhea 81442447 (SNOMED CT) 12/08 Active 12/08 Chantell White Diarrhea Diabetes mellitus type II 55106029 (SNOMED CT) 12/08 Active 12/08 Chantell White Type 2 diabetes mellitus Acute pulmonary blastomycosis 386406039 (SNOMED CT) 12/08 Active 12/08 Chantell White Acute pulmonary blastomycosis Chronic pulmonary blastomycosis 644865845 (SNOMED CT) 12/08 Active 12/08 Chantell White Chronic pulmonary blastomycosis Medications Medication Instructions Start Date Stop Date Generic Name NDC Provider GLIPIZIDE 10 MG TABS take twice daily 05/09 GLIPIZIDE 71899846738 Joshua Schmid MD ITRACONAZOLE 100 MG CAPS Take two by mouth twice daily. 8 ITRACONAZOLE 77332854613 Joshua Schmid MD ITRACONAZOLE 100 MG CAPS take 2 po bid ITRACONAZOLE 03738755289 Joshua Schmid MD ITRACONAZOLE 100 MG CAPS Take two by mouth twice daily. 0/10 ITRACONAZOLE 95209132890 Joshua Schmid MD LEVOTHYROXINE SODIUM 50 MCG TABS daily 12/22 LEVOTHYROXINE SODIUM 04431506414 Tanisha L GNP OMEPRAZOLE 20 MG TBEC twice daily 12/22 OMEPRAZOLE 18183882080 Tanisha L SYMBICORT 80-4.5 MCG/ACT AERO 2 puffs twice daily BUDESONIDE-FORMO TEROL FUMARATE 29907093137 Marylou Martinez RN SPIRIVA HANDIHALER 18 MCG CAPS daily TIOTROPIUM BROMIDE MONOHYDRATE 49448995944 Marylou Martinez RN SINGULAIR 10 MG TABS daily MONTELUKAST SODIUM 60170111916 Marylou Martinez RN FLONASE ALLERGY RELIEF 50 MCG/ACT SUSP daily FLUTICASONE PROPIONATE 06228690902 Marylou Martinez RN DALIRESP 500 MCG TABS daily ROFLUMILAST 85738888119 Marylou Martinez RN DUTOPROL 25-12.5 MG ORAL TABLET EXTENDED RELEASE 24 HOUR daily METOPROLOL-HYDRO CHLOROTHIAZIDE 38573998895 Marylou Martinez RN REQUIP 4 MG ORAL TABLET 4 mg daily ROPINIROLE HCL 41333750037 Marylou Martinez RN KLOR-CON 10 10 MEQ CR-TABS twice daily POTASSIUM CHLORIDE 92046961707 Marylou Martinez RN GNP OMEPRAZOLE 20 MG TBEC twice daily 12/22 OMEPRAZOLE 12245003023 Marylou Martinez RN METOCLOPRAMIDE HCL 5 MG TABS one tab three times daily METOCLOPRAMIDE HCL 74899768802 Marylou Martinez RN PIOGLITAZONE HCL-METFORMIN HCL 15-850 MG TABS twice daily PIOGLITAZONE HCL-METFORMIN HCL 15702698483 Marylou Martinez RN MOBIC 15 MG ORAL TABLET daily MELOXICAM 70979601418 Marylou Martinez RN LISINOPRIL 20 MG TABS daily LISINOPRIL 67225851241 Marylou Martinez RN LEVOTHYROXINE SODIUM 50 MCG TABS daily 0 12/22 LEVOTHYROXINE SODIUM 48319291568 Marylou Martinez RN FLORICAL TABS 60mg daily SOD FLUORIDE-CA CARBONATE TABS 42682261072 Marylou Martinez RN GLIPIZIDE 10 MG TABS take twice daily 0 05/09 GLIPIZIDE 55347434790 Angela A GABAPENTIN 600 MG TABS take 2 tablets twice daily GABAPENTIN 76481756159 Angela A FUROSEMIDE 40 MG TABS take once daily as needed FUROSEMIDE 75949736885 Angela A ITRACONAZOLE 100 MG CAPS 1 po qid 0 3 ITRACONAZOLE 18195919661 Angela A DALIRESP 500 MCG TABS 1 po qd 0 3 ROFLUMILAST 53120006267 Angela A PROAIR HFA 108 (90 Base) MCG/ACT INHALATION AEROSOL SOLUTION 0 3 ALBUTEROL SULFATE 87233481371 Angela A SPIRIVA HANDIHALER 18 MCG CAPS 1 po qd 0 3 TIOTROPIUM BROMIDE MONOHYDRATE 45754248662 Angela A SYMBICORT 80-4.5 MCG/ACT AERO 0 3 BUDESONIDE-FORMO TEROL FUMARATE 72774239506 Angela A DOXYCYCLINE MONOHYDRATE 100 MG CAPS 0 3 DOXYCYCLINE MONOHYDRATE 58420072702 Angela A GLIPIZIDE 10 MG TABS 1 po bid 0 3 GLIPIZIDE 35363374028 Angela A ACTOPLUS MET 15-850 MG TABS 1 po bid 0 3 PIOGLITAZONE HCL-METFORMIN HCL 88038197915 Angela A OXYBUTYNIN CHLORIDE ER 10 MG [id number] 1 po qd 0 3 OXYBUTYNIN CHLORIDE 48197144495 Angela A DELTASONE 20 MG ORAL TABLET 0 3 PREDNISONE 48750048581 Angela A FUROSEMIDE 40 MG TABS 1 po bid 0 3 FUROSEMIDE 08837849303 Angela A METOPROLOL TARTRATE 25 MG TABS 1 po qd 0 3 METOPROLOL TARTRATE 87446014376 Angela A AZITHROMYCIN 250 MG TABS 0 3 AZITHROMYCIN 88212360230 Angela A ANTI-DIARRHEAL 2 MG CAPS 0 3 LOPERAMIDE HCL 95504463844 Angela A FUROSEMIDE 40 MG TABS 1 po qd 0 3 FUROSEMIDE 12076199675 Angela A GABAPENTIN 600 MG TABS 1 po qid 0 3 GABAPENTIN 19230887047 Angela A LISINOPRIL 20 MG TABS 1 po qd 0 3 LISINOPRIL 87128778070 Angela A [facility] OMEPRAZOLE 20.6 (20 Base) MG ORAL CAPSULE DELAYED RELEASE 1 po bid 0 3 OMEPRAZOLE MAGNESIUM 75732301074 Angela A FLUOXETINE HCL (PMDD) 20 MG ORAL CAPSULE 1 po tid 0 3 FLUOXETINE HCL (PMDD) 54615636642 Angela A MONTELUKAST SODIUM 10 MG TABS 1 po qd 0 3 MONTELUKAST SODIUM 96546915800 Angela A DALIRESP 500 MCG TABS 1 po qd 0 304 ROFLUMILAST 22830543289 Angela A MELOXICAM 15 MG TABS 1 po qd 0 3 MELOXICAM 05250155608 Angela A REQUIP 4 MG ORAL TABLET 1 po qd 0 3 ROPINIROLE HCL 10567005654 Angela A ITRACONAZOLE 100 MG CAPS 0 3 ITRACONAZOLE 81682151314 Angela A ACTOPLUS MET 15-850 MG TABS 1 po bid 0 304 PIOGLITAZONE HCL-METFORMIN HCL 64103088075 Angela A METOCLOPRAMIDE HCL 5 MG TABS 1 po qid 0 304 METOCLOPRAMIDE HCL 75000734208 Angela A OXYBUTYNIN CHLORIDE ER 10 MG [id number] 1 po qd 0 3 OXYBUTYNIN CHLORIDE 15190842953 Angela A PROAIR HFA 108 (90 Base) MCG/ACT INHALATION AEROSOL SOLUTION 0 304 ALBUTEROL SULFATE 63225062557 Angela A SPIRIVA HANDIHALER 18 MCG CAPS 1 po qd 0 304 TIOTROPIUM BROMIDE MONOHYDRATE 35314069862 Angela A SYMBICORT 80-4.5 MCG/ACT AERO 0 304 BUDESONIDE-FORMO TEROL FUMARATE 84445546849 Angela A METOPROLOL TARTRATE 25 MG TABS 1 po qd 0 304 METOPROLOL TARTRATE 26402202526 Angela A FUROSEMIDE 40 MG TABS 1 po qd 0 3/04 FUROSEMIDE 54973924535 Angela A GLIPIZIDE 10 MG TABS 1 po bid 0 3/04 GLIPIZIDE 91339485334 Angela A LEVO-T 50 MCG TABS 1 po qd 0 3/04 LEVOTHYROXINE SODIUM 96211274372 Angela A LEVO-T 50 MCG TABS 1 po qd 0 3/04 LEVOTHYROXINE SODIUM 23020502953 Stefany G GLIPIZIDE 10 MG TABS 1 po bid 0 3/04 GLIPIZIDE 48093536575 Stefany G FUROSEMIDE 40 MG TABS 1 po qd 0 304 FUROSEMIDE 80662037347 Stefany G METOPROLOL TARTRATE 25 MG TABS 1 po qd 0 3/04 METOPROLOL TARTRATE 00490077067 Stefany G SYMBICORT 80-4.5 MCG/ACT AERO 0 3/04 BUDESONIDE-FORMO TEROL FUMARATE 80700695256 Stefany G SPIRIVA HANDIHALER 18 MCG CAPS 1 po qd 04/08 TIOTROPIUM BROMIDE MONOHYDRATE 78056643853 Stefany Petersen PROAIR HFA 108 (90 Base) MCG/ACT INHALATION AEROSOL SOLUTION 0 3 ALBUTEROL SULFATE 06395078849 Stefany Petersen OXYBUTYNIN CHLORIDE ER 10 MG [id number] 1 po qd 11/16 OXYBUTYNIN CHLORIDE 40743385567 Stefany Petersen METOCLOPRAMIDE HCL 5 MG TABS 1 po qid 0 3 METOCLOPRAMIDE HCL 70989914079 Stefany Petersen ACTOPLUS MET 15-850 MG TABS 1 po bid 0 3 PIOGLITAZONE HCL-METFORMIN HCL 82440449450 Stefany Petersen ITRACONAZOLE 100 MG CAPS ITRACONAZOLE 60965094377 Stefany Petersen REQUIP 4 MG ORAL TABLET 1 po qd 0 07/06 ROPINIROLE HCL 66560576707 Stefany Petersen MELOXICAM 15 MG TABS 1 po qd 0 3 MELOXICAM 88863782798 Stefany Petersen DALIRESP 500 MCG TABS 1 po qd 12/05 ROFLUMILAST 48818677902 Stefany Petersen MONTELUKAST SODIUM 10 MG TABS 1 po qd 0 3 MONTELUKAST SODIUM 16870621651 Stefany Petersen FLUOXETINE HCL (PMDD) 20 MG ORAL CAPSULE 1 po tid 0 3 FLUOXETINE HCL (PMDD) 55016506447 Stefany Petersen [facility] OMEPRAZOLE 20.6 (20 Base) MG ORAL CAPSULE DELAYED RELEASE 1 po bid 0 3 OMEPRAZOLE MAGNESIUM 12760942596 Stefany Petersen LISINOPRIL 20 MG TABS 1 po qd 12/05 LISINOPRIL 83924262702 Stefany Petersen GABAPENTIN 600 MG TABS 1 po qid 0 3 GABAPENTIN 51821507348 Stefany Petersen FUROSEMIDE 40 MG TABS 1 po qd 3 FUROSEMIDE 80372610923 Stefany Petersen ANTI-DIARRHEAL 2 MG CAPS 3 LOPERAMIDE HCL 55842059020 Stefany Petersen AZITHROMYCIN 250 MG TABS 0 04/08 AZITHROMYCIN 54732633055 Stefany Petersen METOPROLOL TARTRATE 25 MG TABS 1 po qd 0 3 METOPROLOL TARTRATE 29114904283 Stefany Petersen FUROSEMIDE 40 MG TABS 1 po bid 0 3 FUROSEMIDE 54739787272 Stefany Petersen DELTASONE 20 MG ORAL TABLET 02/14 PREDNISONE 18471536283 Stefany Petersen OXYBUTYNIN CHLORIDE ER 10 MG [id number] 1 po qd 11/16 OXYBUTYNIN CHLORIDE 31938991987 Stefany Petersen ACTOPLUS MET 15-850 MG TABS 1 po bid 0 3 PIOGLITAZONE HCL-METFORMIN HCL 76621783811 Stefany Petersen GLIPIZIDE 10 MG TABS 1 po bid 0 3 GLIPIZIDE 34246067506 Stefany Petersen DOXYCYCLINE MONOHYDRATE 100 MG CAPS 0 3 DOXYCYCLINE MONOHYDRATE 25600463349 Stefany Petersen SYMBICORT 80-4.5 MCG/ACT AERO 0 3 BUDESONIDE-FORMO TEROL FUMARATE 85769223070 Stefany Petersen SPIRIVA HANDIHALER 18 MCG CAPS 1 po qd 0 7 TIOTROPIUM BROMIDE MONOHYDRATE 08426164525 Stefany Petersen PROAIR HFA 108 (90 Base) MCG/ACT INHALATION AEROSOL SOLUTION 0 3/ ALBUTEROL SULFATE 20738691990 Stefany Petersen DALIRESP 500 MCG TABS 1 po qd 12/05 ROFLUMILAST 86053704951 Stefany Petersen ITRACONAZOLE 100 MG CAPS 1 po qid 0/10 ITRACONAZOLE 85336129367 Stefany G Medications Administered No information available. [...] Procedures Code Procedure Name Date Entry Date 37841 Hepatitis C Atb: (ICD 10 Code: Z11.59) 20 23/04/29 CPT-07356 CMP CPT-88706 Itraconazole Level 4 CPT-73169 CMP CPT-03643 Itraconazole Level 8 CPT-95372 Itraconazole Level 6 CPT-45358 Itraconazole Level 6 CPT-06979 CMP [id number] CBC with Differential 2015 CPT-76490 Itraconazole Level 3 CPT-cdpcr C-Diff PCR Vital [...] Directive Description Start Date DURABLE POWER OF SKEIN SPOOLER LIVING WILL ON FILE
[2025-06-06 16:10] LABS: Microscopic, Urine URINE MICROSCOPIC (MICROSCOPIC)
[2025-06-06 16:23] LABS: Bilirubin,Urine Negative (Negative); Color,Urine YELLOW (Yellow); Glucose,Urine (UA) Negative (Negative); Ketones,Urine Negative (Negative); Leukocyte Esterase,Urine 1+ (Negative); PH,Urine 5.5 (5.0-8.5); Protein,Urine Negative (Negative); Specific Gravity, Urine 1.015 (1.005-1.030); Urobilinogen,Urine 0.2 EU/dl (0.2)
[2025-06-06 16:42] LABS: Bacteria,Urine 3+ /lpf
== END 2025-06-06 23:59 | disposition home or self-care (01) ==
LOC: LAB 14:12
PROVIDERS: PCP Family Medicine; Visit Provider Family Medicine
DX: E30.0 Delayed puberty (principal)
CPT/HCPCS: 81001; 87086

== ENCOUNTER 2025-06-11 08:26 | Outpatient (CLI) | payer MEDICARE, MEDICAID, SELFPAY ==
[2025-06-11 08:44] LABS: Hematocrit 26.8 % (37.0-47.0); Hemoglobin 8.2 g/dL (12.2-16.2); Immature Granulocytes % 0.4 %; Mean Corpuscular HGB Conc 30.6 g/dL (31.8-35.4); Mean Corpuscular Hemoglobin 28.7 pg (27.0-31.2); Mean Corpuscular Volume 93.7 fl (81-99); Nucleated Red Blood Cells % 0 %; Platelet Count 125 K/mm3 (142-424); Red Blood Count 2.86 M/mm3 (4.20-5.40); Red Cell Distribution Width-SD 52.0 fL; White Blood Count 5.1 K/mm3 (4.8-10.8)
--- OUTSIDE RECORDS SUMMARY | 2025-06-11 08:49 | XMS_ITS | Referral Summary ---
Author Organization [employer] ([place], [place], [place], [place]) Address [address] [place] [address] Care Team Providers Care Retail Product Demo Specialist Name Role Phone Unavailable Primary Care Provider [...] (02/01/2023): Added automatically from request for surgery [id number] Social History Tobacco Use Types Packs/Day Years [...] Date Garcia rded Speak language other than Belizean at home Not on file 10/27/2023 Want [...] A1C 8.0 % 02/02/2023 11:[address] [facility] Comment: Hemoglobin A1C levels are related to mean glucose during the preceding 2-3 months. Less than 7% demonstrates glycemic control in diabetic patients. Hemoglobin AlC % Suggested Diagnosis > or = 6.5 Diabetic 5.7 - 6.4 Prediabetic <5.7 Non-diabetic eAVG Glucose 182.9 mg/dL 02/02/2023 11:[address] [facility] Blood Venipuncture / Unknown 02/02/2023 3:00 AM EDT 02/02/2023 3:05 AM EDT Marylou Werner MD LAB BLOOD ORDERABLES Final R esult [facility] [address] [phone] from Last 3 Months or Most Recently Relevant to Health Maintenance Insurance HUMANA MEDICARE PPO MEDICAID OF [place] Advance Directives For more information, please contact: [phone] Documents on File Type Date Recorded Patient Truck Sales Manager Expl anation Power of Sharepoint Engineer 01/31/2023 * DNR - Limited Additional Intervention (Latest Code Status on File) Date Activated Date Inactivated Comments 01/31/2023 9:46 PM 02/06/2023 5:29 PM If no pulse: NO intervention If has pulse: NO Intubation. May use BiPAP/CPAP Call HEAD LINEMAN * Full Code Date Activated Date Inactivated Comments 01/31/2023 8:28 PM 01/31/2023 9:46 PM Healthcare Agents on File Name Relationship Healthcare Agent Relationshi p Communication Rafael Fernandez Son First Alternate Healthcare Decision-Maker Cony Fernandez [id number] Second Alternate Healthcare Decision-Maker
--- OUTSIDE RECORDS SUMMARY | 2025-06-11 08:49 | XMS_ITS | Clinical Summary ---
Author Organization [employer] ([place], [place], [place], [place]) Address [address] [place] [address] Care Team Providers Care Onboarding Specialist Name Role Phone Unavailable Primary Care [...] (02/01/2023): Added automatically from request for surgery [id number] Social History Tobacco Use Types Packs/Day Years [...] Date Garcia rded Speak language other than Bulgarian at home Not on file 10/27/2023 Want [...] A1C 8.0 % 02/02/2023 11:14 AM EDT [facility] Comment: Hemoglobin A1C levels are related to mean glucose during the preceding 2-3 months. Less than 7% demonstrates glycemic control in diabetic patients. Hemoglobin AlC % Suggested Diagnosis > or = 6.5 Diabetic 5.7 - 6.4 Prediabetic <5.7 Non-diabetic eAVG Glucose 182.9 mg/dL 02/02/2023 11:14 AM EDT [facility] Blood Venipuncture / Unknown 02/02/2023 3:00 AM EDT 02/02/2023 3:05 AM EDT Marylou Werner MD LAB BLOOD ORDERABLES Final R esult [facility] [address] [phone] from Last 3 Months or Most Recently Relevant to Health Maintenance Insurance HUMANA MEDICARE PPO MEDICAID OF [place] Advance Directives For more information, please contact: [phone] Documents on File Type Date Recorded Patient Pathology Supervisor Expl anation Power of University Relations Recruiter 01/31/2023 * DNR - Limited Additional Intervention (Latest Code Status on File) Date Activated Date Inactivated Comments 01/31/2023 9:46 PM 02/06/2023 5:29 PM If no pulse: NO intervention If has pulse: NO Intubation. May use BiPAP/CPAP Call LINEN CLERK * Full Code Date Activated Date Inactivated Comments 01/31/2023 8:28 PM 01/31/2023 9:46 PM Healthcare Agents on File Name Relationship Healthcare Agent Relationshi p Communication Rafael Fernandez Son First Alternate Healthcare Decision-Maker Cony Rebecca [id number] Second Alternate Healthcare Decision-Maker
--- OUTSIDE RECORDS SUMMARY | 2025-06-11 08:49 | XMS_ITS | Clinical Summary ---
[facility] Organization [facility] Address [address] [place] [address] Care Team Providers Care Dispute Specialist Name Role Phone Provider, No Known Primary [...] season) 2024 INFLUENZA VACCINE 07/09/2025 Insurance MEDICAID [place] ZZZHUMANA MEDICARE ADVANTAGE Care Teams Dispute Specialist Relationship Specialty Start Date End Date Provider, No Known [facility] [place] [address] PCP - General 12/10/15
--- OUTSIDE RECORDS SUMMARY | 2025-06-11 08:49 | XMS_ITS | Clinical Summary ---
Author Organization Healthcare Address [address] [place] [address] Care Team Providers Care Carton Filler Name Role Phone Tonya Freeman APRN Primary Care Provider + [phone] Social History Tobacco Use Types Packs/Day Years Used Date Smoking Tobacco: Never Assessed Comments Unknown Sex and Gender Information Value Date Recorded Sex Assigned at Not on file Legal Sex Female 7:29 PM EDT Gender Identity Not on file Sexual Orientation Not on file Plan of Treatment Not on file Care Teams Carton Filler Relationship Specialty Start Date End Date Tonya Freeman APRN [address] [place] [address] PCP - General 02/19/21
--- OUTSIDE RECORDS SUMMARY | 2025-06-11 08:49 | XMS_ITS | Clinical Summary ---
Author Organization [facility] Address [address] [place] [address] Phone Care Team Providers Care Hull Outfit Supervisor Name Role Phone Marylou Werner MD [ ] Conditions or Problems Problem Name Problem Code Onset Date Status Entry Date Provider Comment Standard Description Annotate GERD 099970848 (SNOMED CT) 12/09 Active 12/09 Joshua Schmid MD Gastroesophageal reflux disease Tobacco abuse 13732812 (SNOMED CT) 12/09 Active 12/09 Joshua Schmid MD Tobacco dependence syndrome Diarrhea 72818608 (SNOMED CT) 12/08 Active 12/08 Chantell White Diarrhea Diabetes mellitus type II 71718660 (SNOMED CT) 12/08 Active 12/08 Chantell White Type 2 diabetes mellitus Acute pulmonary blastomycosis 493170345 (SNOMED CT) 12/08 Active 12/08 Chantell White Acute pulmonary blastomycosis Chronic pulmonary blastomycosis 637700447 (SNOMED CT) 12/08 Active 12/08 Chantell White Chronic pulmonary blastomycosis Medications Medication Instructions Start Date Stop Date Generic Name NDC Provider GLIPIZIDE 10 MG TABS take twice daily 05/09 GLIPIZIDE 07413401861 Joshua Schmid MD ITRACONAZOLE 100 MG CAPS Take two by mouth twice daily. 8 ITRACONAZOLE 32995585940 Joshua Schmid MD ITRACONAZOLE 100 MG CAPS take 2 po bid ITRACONAZOLE 41205247822 Joshua Schmid MD ITRACONAZOLE 100 MG CAPS Take two by mouth twice daily. 0/10 ITRACONAZOLE 22078184663 Joshua Schmid MD LEVOTHYROXINE SODIUM 50 MCG TABS daily 12/22 LEVOTHYROXINE SODIUM 05549089712 Tanisha L GNP OMEPRAZOLE 20 MG TBEC twice daily 12/22 OMEPRAZOLE 68689734777 Tanisha L SYMBICORT 80-4.5 MCG/ACT AERO 2 puffs twice daily BUDESONIDE-FORMO TEROL FUMARATE 02732030546 Marylou Martinez RN SPIRIVA HANDIHALER 18 MCG CAPS daily TIOTROPIUM BROMIDE MONOHYDRATE 55427938181 Marylou Martinez RN SINGULAIR 10 MG TABS daily MONTELUKAST SODIUM 71244912095 Marylou Martinez RN FLONASE ALLERGY RELIEF 50 MCG/ACT SUSP daily FLUTICASONE PROPIONATE 81012131396 Marylou Martinez RN DALIRESP 500 MCG TABS daily ROFLUMILAST 00813058878 Marylou Martinez RN DUTOPROL 25-12.5 MG ORAL TABLET EXTENDED RELEASE 24 HOUR daily METOPROLOL-HYDRO CHLOROTHIAZIDE 35224645229 Marylou Martinez RN REQUIP 4 MG ORAL TABLET 4 mg daily ROPINIROLE HCL 48148419844 Marylou Martinez RN KLOR-CON 10 10 MEQ CR-TABS twice daily POTASSIUM CHLORIDE 89243818005 Marylou Martinez RN GNP OMEPRAZOLE 20 MG TBEC twice daily 12/22 OMEPRAZOLE 34373939904 Marylou Martinez RN METOCLOPRAMIDE HCL 5 MG TABS one tab three times daily METOCLOPRAMIDE HCL 19623691048 Marylou Martinez RN PIOGLITAZONE HCL-METFORMIN HCL 15-850 MG TABS twice daily PIOGLITAZONE HCL-METFORMIN HCL 23713475724 Marylou Martinez RN MOBIC 15 MG ORAL TABLET daily MELOXICAM 54085352791 Marylou Martinez RN LISINOPRIL 20 MG TABS daily LISINOPRIL 41393499047 Marylou Martinez RN LEVOTHYROXINE SODIUM 50 MCG TABS daily 0 12/22 LEVOTHYROXINE SODIUM 09256878709 Marylou Martinez RN FLORICAL TABS 60mg daily SOD FLUORIDE-CA CARBONATE TABS 58658352585 Marylou Martinez RN GLIPIZIDE 10 MG TABS take twice daily 0 05/09 GLIPIZIDE 14322315923 Angela A GABAPENTIN 600 MG TABS take 2 tablets twice daily GABAPENTIN 63813409319 Angela A FUROSEMIDE 40 MG TABS take once daily as needed FUROSEMIDE 10084266789 Angela A ITRACONAZOLE 100 MG CAPS 1 po qid 0 3 ITRACONAZOLE 59698305010 Angela A DALIRESP 500 MCG TABS 1 po qd 0 3 ROFLUMILAST 12624802797 Angela A PROAIR HFA 108 (90 Base) MCG/ACT INHALATION AEROSOL SOLUTION 0 3 ALBUTEROL SULFATE 08677901768 Angela A SPIRIVA HANDIHALER 18 MCG CAPS 1 po qd 0 3 TIOTROPIUM BROMIDE MONOHYDRATE 97466839869 Angela A SYMBICORT 80-4.5 MCG/ACT AERO 0 3 BUDESONIDE-FORMO TEROL FUMARATE 28476121765 Angela A DOXYCYCLINE MONOHYDRATE 100 MG CAPS 0 3 DOXYCYCLINE MONOHYDRATE 28149044179 Angela A GLIPIZIDE 10 MG TABS 1 po bid 0 3 GLIPIZIDE 21799890964 Angela A ACTOPLUS MET 15-850 MG TABS 1 po bid 0 3 PIOGLITAZONE HCL-METFORMIN HCL 29136180599 Angela A OXYBUTYNIN CHLORIDE ER 10 MG [id number] 1 po qd 0 3 OXYBUTYNIN CHLORIDE 58042326763 Angela A DELTASONE 20 MG ORAL TABLET 0 3 PREDNISONE 87947873584 Angela A FUROSEMIDE 40 MG TABS 1 po bid 0 3 FUROSEMIDE 65935135116 Angela A METOPROLOL TARTRATE 25 MG TABS 1 po qd 0 3 METOPROLOL TARTRATE 82886442267 Angela A AZITHROMYCIN 250 MG TABS 0 3 AZITHROMYCIN 54806763379 Angela A ANTI-DIARRHEAL 2 MG CAPS 0 3 LOPERAMIDE HCL 04179921744 Angela A FUROSEMIDE 40 MG TABS 1 po qd 0 3 FUROSEMIDE 31187500737 Angela A GABAPENTIN 600 MG TABS 1 po qid 0 3 GABAPENTIN 79162070863 Angela A LISINOPRIL 20 MG TABS 1 po qd 0 3 LISINOPRIL 90885499791 Angela A [facility] OMEPRAZOLE 20.6 (20 Base) MG ORAL CAPSULE DELAYED RELEASE 1 po bid 0 3 OMEPRAZOLE MAGNESIUM 72942756663 Angela A FLUOXETINE HCL (PMDD) 20 MG ORAL CAPSULE 1 po tid 0 3 FLUOXETINE HCL (PMDD) 08194811768 Angela A MONTELUKAST SODIUM 10 MG TABS 1 po qd 0 3 MONTELUKAST SODIUM 78890086657 Angela A DALIRESP 500 MCG TABS 1 po qd 0 304 ROFLUMILAST 77138865602 Angela A MELOXICAM 15 MG TABS 1 po qd 0 3 MELOXICAM 51350179941 Angela A REQUIP 4 MG ORAL TABLET 1 po qd 0 3 ROPINIROLE HCL 05037350034 Angela A ITRACONAZOLE 100 MG CAPS 0 3 ITRACONAZOLE 68904361211 Anegla A ACTOPLUS MET 15-850 MG TABS 1 po bid 0 304 PIOGLITAZONE HCL-METFORMIN HCL 59613210404 Angela A METOCLOPRAMIDE HCL 5 MG TABS 1 po qid 0 304 METOCLOPRAMIDE HCL 63135202359 Angela A OXYBUTYNIN CHLORIDE ER 10 MG [id number] 1 po qd 0 3 OXYBUTYNIN CHLORIDE 01269190471 Angela A PROAIR HFA 108 (90 Base) MCG/ACT INHALATION AEROSOL SOLUTION 0 304 ALBUTEROL SULFATE 05497012765 Angela A SPIRIVA HANDIHALER 18 MCG CAPS 1 po qd 0 304 TIOTROPIUM BROMIDE MONOHYDRATE 78994546664 Angela A SYMBICORT 80-4.5 MCG/ACT AERO 0 304 BUDESONIDE-FORMO TEROL FUMARATE 51058171327 Angela A METOPROLOL TARTRATE 25 MG TABS 1 po qd 0 304 METOPROLOL TARTRATE 73026969356 Angela A FUROSEMIDE 40 MG TABS 1 po qd 0 3/04 FUROSEMIDE 19440391488 Angela A GLIPIZIDE 10 MG TABS 1 po bid 0 3/04 GLIPIZIDE 53813277184 Angela A LEVO-T 50 MCG TABS 1 po qd 0 3/04 LEVOTHYROXINE SODIUM 01333768688 Angela A LEVO-T 50 MCG TABS 1 po qd 0 3/04 LEVOTHYROXINE SODIUM 94959272113 Stefany G GLIPIZIDE 10 MG TABS 1 po bid 0 3/04 GLIPIZIDE 10430629272 Stefany G FUROSEMIDE 40 MG TABS 1 po qd 0 304 FUROSEMIDE 14420364322 Stefany G METOPROLOL TARTRATE 25 MG TABS 1 po qd 0 3/04 METOPROLOL TARTRATE 42856350362 Stefany G SYMBICORT 80-4.5 MCG/ACT AERO 0 3/04 BUDESONIDE-FORMO TEROL FUMARATE 87078542444 Stefany G SPIRIVA HANDIHALER 18 MCG CAPS 1 po qd 04/08 TIOTROPIUM BROMIDE MONOHYDRATE 94097579662 Stefany Petersen PROAIR HFA 108 (90 Base) MCG/ACT INHALATION AEROSOL SOLUTION 0 3 ALBUTEROL SULFATE 06639889948 Stefany Petersen OXYBUTYNIN CHLORIDE ER 10 MG [id number] 1 po qd 11/16 OXYBUTYNIN CHLORIDE 70437254197 Stefany Petersen METOCLOPRAMIDE HCL 5 MG TABS 1 po qid 0 3 METOCLOPRAMIDE HCL 56597793186 Stefany Petersen ACTOPLUS MET 15-850 MG TABS 1 po bid 0 3 PIOGLITAZONE HCL-METFORMIN HCL 02306863306 Stefany Petersen ITRACONAZOLE 100 MG CAPS ITRACONAZOLE 78901143519 Stefany Petersen REQUIP 4 MG ORAL TABLET 1 po qd 0 07/06 ROPINIROLE HCL 79336058258 Stefany Petersen MELOXICAM 15 MG TABS 1 po qd 0 3 MELOXICAM 79143902087 Stefany Petersen DALIRESP 500 MCG TABS 1 po qd 12/05 ROFLUMILAST 96847182041 Stefany Petersen MONTELUKAST SODIUM 10 MG TABS 1 po qd 0 3 MONTELUKAST SODIUM 42624550366 Stefany Petersen FLUOXETINE HCL (PMDD) 20 MG ORAL CAPSULE 1 po tid 0 3 FLUOXETINE HCL (PMDD) 45526702655 Stefany Petersen [facility] OMEPRAZOLE 20.6 (20 Base) MG ORAL CAPSULE DELAYED RELEASE 1 po bid 0 3 OMEPRAZOLE MAGNESIUM 47441194145 Stefany Petersen LISINOPRIL 20 MG TABS 1 po qd 12/05 LISINOPRIL 39351182143 Stefany Petersen GABAPENTIN 600 MG TABS 1 po qid 0 3 GABAPENTIN 92368822010 Stefany Petersen FUROSEMIDE 40 MG TABS 1 po qd 3 FUROSEMIDE 38245334423 Stefany Petersen ANTI-DIARRHEAL 2 MG CAPS 3 LOPERAMIDE HCL 56437079774 Stefany Petersen AZITHROMYCIN 250 MG TABS 0 04/08 AZITHROMYCIN 56965711325 Stefany Petersen METOPROLOL TARTRATE 25 MG TABS 1 po qd 0 3 METOPROLOL TARTRATE 35565057297 Stefany Petersen FUROSEMIDE 40 MG TABS 1 po bid 0 3 FUROSEMIDE 57685331074 Stefany Petersen DELTASONE 20 MG ORAL TABLET 02/14 PREDNISONE 03578032984 Stefany Petersen OXYBUTYNIN CHLORIDE ER 10 MG [id number] 1 po qd 11/16 OXYBUTYNIN CHLORIDE 02345867174 Stefany Petersen ACTOPLUS MET 15-850 MG TABS 1 po bid 0 3 PIOGLITAZONE HCL-METFORMIN HCL 02475182481 Stefany Petersen GLIPIZIDE 10 MG TABS 1 po bid 0 3 GLIPIZIDE 76259415966 Stefany Petersen DOXYCYCLINE MONOHYDRATE 100 MG CAPS 0 3 DOXYCYCLINE MONOHYDRATE 02373681621 Stefany Petersen SYMBICORT 80-4.5 MCG/ACT AERO 0 3 BUDESONIDE-FORMO TEROL FUMARATE 17534010545 Stefany Petersen SPIRIVA HANDIHALER 18 MCG CAPS 1 po qd 0 7 TIOTROPIUM BROMIDE MONOHYDRATE 69876037490 Stefany Petersen PROAIR HFA 108 (90 Base) MCG/ACT INHALATION AEROSOL SOLUTION 0 3/ ALBUTEROL SULFATE 31981517857 Stefany Petersen DALIRESP 500 MCG TABS 1 po qd 12/05 ROFLUMILAST 82509205575 Stefany Petersen ITRACONAZOLE 100 MG CAPS 1 po qid 0/10 ITRACONAZOLE 21263493090 Stefany G Medications Administered No information available. [...] Procedures Code Procedure Name Date Entry Date 38873 Hepatitis C Atb: (ICD 10 Code: Z11.59) 20 23/04/29 CPT-00090 CMP CPT-28643 Itraconazole Level 4 CPT-82286 CMP CPT-66412 Itraconazole Level 8 CPT-21984 Itraconazole Level 6 CPT-32233 Itraconazole Level 6 CPT-13949 CMP [id number] CBC with Differential 2015 CPT-22707 Itraconazole Level 3 CPT-cdpcr C-Diff PCR Vital [...] Directive Description Start Date DURABLE POWER OF HEEL COVERER LIVING WILL ON FILE
[2025-06-11 10:42] LABS: Folate 17.30 ng/mL
[2025-06-11 12:07] LABS: Iron 59 ug/dL (37-170)
[2025-06-11 12:11] LABS: Vitamin B12 883 pg/mL (239-931)
[2025-06-11 12:43] LABS: Ferritin 17.0 ng/ml (11.1-264)
== END 2025-06-11 23:59 | disposition home or self-care (01) ==
PROVIDERS: PCP Family Medicine; Visit Provider Family Medicine
DX: D64.9 Anemia, unspecified (principal)
CPT/HCPCS: 36415; 82607; 82728; 82746; 83540; 85025

== ENCOUNTER 2025-06-16 07:36 | Outpatient (CLI) | payer MEDICARE, MEDICAID, SELFPAY ==
--- OUTSIDE RECORDS SUMMARY | 2025-03-28 05:50 | XMS_ITS | Continuity of Care Document ---
Author Organization [address] [place] [address] [address] [place] [address] Phone Care Team Providers Care Ball Point Splitter Name Role Phone Tucker HARLEYAida Ulloa Unavailable [...] Call Periodic Oral Evaluation Reline Complete Man Coffee Chair Adjust Complete Denture Maxil Compsve Oral Eval- New/Est Pat Complete Series Of Radiographic Images N Replace Broken Teeth-Per Tooth 23 FUNDUS PHOTOGRAPHY EYE EXAM NEW PATIENT Advance Directives Directive Yes / No Effective Date File Name No Information Encounters Encounter Description Practice Location Reason(s) For Visit Diagnoses Date Provider Providers Copied on Encounter [address] [place] [address], [address] [facility] [address], [place], [id number], tel:[phone] [facility] Encounter for dental examination and cleaning without abnormal findings Tucker Parra. [address] [facility], [address], [place], [place], [id number], . tel:[phone] Referring Provider: Arabella Jonas. [address] [place] [address], [address] [facility] [address], [place], [place], [id number], tel:[phone] [facility] Encounter for fitting and adjustment of dental prosthetic deviceEncount er for dental examination and cleaning without abnormal findings 4 Guille Polanco. . Referring Provider: Arabella Jonas. [address] [place] [address], [address] [facility], [place], [place], [id number], tel:[phone] [facility] Encounter for dental examination and cleaning without abnormal findingsEncou nter for fitting and adjustment of dental prosthetic device 4 Deann Rhodes. [address] [facility], [address], [place], [place], [id number], [place]. tel:[phone] Referring Provider: Arabella Jonas. [address] [place] [address], [address] [facility], [place], [place], [id number], [place] tel:[phone] [facility] No Information 4 Jose Elias Trammell. [address] [facility], [place], [address], [place]. tel:[phone] [place] [address], [address] [facility], [place], [place], [id number], [place] tel:[phone] [facility] Encounter for dental examination and cleaning without abnormal findingsEncou nter for fitting and adjustment of dental prosthetic device 3 Gonzales Smith. [address] [facility], [address], [place], [place], [id number], [place]. tel:[phone] Referring Provider: Arabella Jonas. [address] [place] [address], [address] [facility], [place], [place], [id number], [place] tel:[phone] [facility] Diabetic eye exam (chief complaint) Type 2 diabetes mellitus without complications Vitreous degeneration, left eye 3 Herminio Betancourt. , [place]. Referring Provider: Arabella Jonas. Family History Family Member Type Diagnosis Age At Onset No Information Payers Payer name Insurance type Covered alliance party ID Authoriza tion(s) DDS [employer] Medicare Adv ZZ [id number] DDS Medicaid [facility] [id number] Social History Type Description Quantity Date Captured [...]
--- OUTSIDE RECORDS SUMMARY | 2025-06-16 07:38 | XMS_ITS | Referral Summary ---
Author Organization [employer] ([place], [place], [place], [place]) Address [address] [place] [address] Care Team Providers Care Finance Insurance Manager Name Role Phone Unavailable Primary Care Provider [...] (02/01/2023): Added automatically from request for surgery [id number] Social History Tobacco Use Types Packs/Day Years [...] Date Garcia rded Speak language other than Greek at home Not on file 10/27/2023 Want [...] A1C 8.0 % 02/02/2023 11:14 AM EDT [facility] Comment: Hemoglobin A1C levels are related to mean glucose during the preceding 2-3 months. Less than 7% demonstrates glycemic control in diabetic patients. 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 May use BiPAP/CPAP Call SUPERVISOR LEAD BURNING * Full Code Date Activated Date Inactivated Comments 01/31/2023 8:28 PM 01/31/2023 9:46 PM Healthcare Agents on File Name Relationship Healthcare Agent Relationshi p Communication Rafael Fernandez Son First Alternate Healthcare Decision-Maker Cony Fernandez [id number] Second Alternate Healthcare Decision-Maker
--- OUTSIDE RECORDS SUMMARY | 2025-06-16 07:38 | XMS_ITS | Clinical Summary ---
Author Organization [facility] Address [address] [place] [address] Phone Care Team Providers Care Wet Suit Gluer Name Role Phone Marylou Werner MD [phone] [ ] Conditions or Problems Problem Name Problem Code Onset Date Status Entry Date Provider Comment Standard Description Annotate GERD 620023349 (SNOMED CT) 12/09 Active 12/09 Joshua Schmid MD Gastroesophageal reflux disease Tobacco abuse 16021244 (SNOMED CT) 12/09 Active 12/09 Joshua Schmid MD Tobacco dependence syndrome Diarrhea 67253321 (SNOMED CT) 12/08 Active 12/08 Chantell White Diarrhea Diabetes mellitus type II 32140896 (SNOMED CT) 12/08 Active 12/08 Chantell White Type 2 diabetes mellitus Acute pulmonary blastomycosis 127461645 (SNOMED CT) 12/08 Active 12/08 Chantell White Acute pulmonary blastomycosis Chronic pulmonary blastomycosis 824155625 (SNOMED CT) 12/08 Active 12/08 Chantell White Chronic pulmonary blastomycosis Medications Medication Instructions Start Date Stop Date Generic Name NDC Provider GLIPIZIDE 10 MG TABS take twice daily 05/09 GLIPIZIDE 07919724498 Joshua Schmid MD ITRACONAZOLE 100 MG CAPS Take two by mouth twice daily. 8 ITRACONAZOLE 24024260478 Joshua Schmid MD ITRACONAZOLE 100 MG CAPS take 2 po bid ITRACONAZOLE 64136787207 Joshua Schmid MD ITRACONAZOLE 100 MG CAPS Take two by mouth twice daily. 0/ ITRACONAZOLE 55960772207 Joshua Schmid MD LEVOTHYROXINE SODIUM 50 MCG TABS daily 12/22 LEVOTHYROXINE SODIUM 04664959556 Tanisha L GNP OMEPRAZOLE 20 MG TBEC twice daily 12/22 OMEPRAZOLE 91197024889 Tanisha L SYMBICORT 80-4.5 MCG/ACT AERO 2 puffs twice daily BUDESONIDE-FORMO TEROL FUMARATE 93410605145 Marylou Martinez RN SPIRIVA HANDIHALER 18 MCG CAPS daily TIOTROPIUM BROMIDE MONOHYDRATE 03581655536 Marylou Martinez RN SINGULAIR 10 MG TABS daily MONTELUKAST SODIUM 61999388996 Marylou Martinez RN FLONASE ALLERGY RELIEF 50 MCG/ACT SUSP daily FLUTICASONE PROPIONATE 14090603668 Marylou Martinez RN DALIRESP 500 MCG TABS daily ROFLUMILAST 15370129230 Marylou Martinez RN DUTOPROL 25-12.5 MG ORAL TABLET EXTENDED RELEASE 24 HOUR daily METOPROLOL-HYDRO CHLOROTHIAZIDE 07691781142 Marylou Martinez RN REQUIP 4 MG ORAL TABLET 4 mg daily ROPINIROLE HCL 56559498478 Marylou Martinez RN KLOR-CON 10 10 MEQ CR-TABS twice daily POTASSIUM CHLORIDE 87747022130 Marylou Martinez RN GNP OMEPRAZOLE 20 MG TBEC twice daily 12/22 OMEPRAZOLE 43390849309 Marylou Martinez RN METOCLOPRAMIDE HCL 5 MG TABS one tab three times daily METOCLOPRAMIDE HCL 05176137961 Marylou Martinez RN PIOGLITAZONE HCL-METFORMIN HCL 15-850 MG TABS twice daily PIOGLITAZONE HCL-METFORMIN HCL 59325429685 Marylou Martinez RN MOBIC 15 MG ORAL TABLET daily MELOXICAM 83964049523 Marylou Martinez RN LISINOPRIL 20 MG TABS daily LISINOPRIL 60348676857 Marylou Martinez RN LEVOTHYROXINE SODIUM 50 MCG TABS daily 0 12/22 LEVOTHYROXINE SODIUM 28923824601 Marylou Martinez RN FLORICAL TABS 60mg daily SOD FLUORIDE-CA CARBONATE TABS 37890732468 Marylou Martinez RN GLIPIZIDE 10 MG TABS take twice daily 0 05/09 GLIPIZIDE 05042461281 Angela A GABAPENTIN 600 MG TABS take 2 tablets twice daily GABAPENTIN 11823416425 Angela A FUROSEMIDE 40 MG TABS take once daily as needed FUROSEMIDE 65689642078 Angela A ITRACONAZOLE 100 MG CAPS 1 po qid 0 3 ITRACONAZOLE 22003300785 Angela A DALIRESP 500 MCG TABS 1 po qd 0 3 ROFLUMILAST 17304969809 Angela A PROAIR HFA 108 (90 Base) MCG/ACT INHALATION AEROSOL SOLUTION 0 3 ALBUTEROL SULFATE 63795139456 Angela A SPIRIVA HANDIHALER 18 MCG CAPS 1 po qd 0 3 TIOTROPIUM BROMIDE MONOHYDRATE 20265399862 Angela A SYMBICORT 80-4.5 MCG/ACT AERO 0 3 BUDESONIDE-FORMO TEROL FUMARATE 00138765349 Angela A DOXYCYCLINE MONOHYDRATE 100 MG CAPS 0 3 DOXYCYCLINE MONOHYDRATE 85098304530 Angela A GLIPIZIDE 10 MG TABS 1 po bid 0 3 GLIPIZIDE 30905028420 Angela A ACTOPLUS MET 15-850 MG TABS 1 po bid 0 3 PIOGLITAZONE HCL-METFORMIN HCL 15567012815 Angela A OXYBUTYNIN CHLORIDE ER 10 MG [id number] 1 po qd 0 3 OXYBUTYNIN CHLORIDE 67117027790 Angela A DELTASONE 20 MG ORAL TABLET 0 3 PREDNISONE 46393846216 Angela A FUROSEMIDE 40 MG TABS 1 po bid 0 3 FUROSEMIDE 21612443217 Angela A METOPROLOL TARTRATE 25 MG TABS 1 po qd 0 3 METOPROLOL TARTRATE 52832294894 Angela A AZITHROMYCIN 250 MG TABS 0 3 AZITHROMYCIN 17562620928 Angela A ANTI-DIARRHEAL 2 MG CAPS 0 3 LOPERAMIDE HCL 11540422409 Angela A FUROSEMIDE 40 MG TABS 1 po qd 0 3 FUROSEMIDE 74052462440 Angela A GABAPENTIN 600 MG TABS 1 po qid 0 3 GABAPENTIN 93937740168 Angela A LISINOPRIL 20 MG TABS 1 po qd 0 3 LISINOPRIL 56277387292 Angela A [facility] OMEPRAZOLE 20.6 (20 Base) MG ORAL CAPSULE DELAYED RELEASE 1 po bid 0 3 OMEPRAZOLE MAGNESIUM 47608350112 Angela A FLUOXETINE HCL (PMDD) 20 MG ORAL CAPSULE 1 po tid 0 3 FLUOXETINE HCL (PMDD) 22977571869 Angela A MONTELUKAST SODIUM 10 MG TABS 1 po qd 0 3 MONTELUKAST SODIUM 47804348801 Angela A DALIRESP 500 MCG TABS 1 po qd 0 304 ROFLUMILAST 59492165355 Angela A MELOXICAM 15 MG TABS 1 po qd 0 3 MELOXICAM 76187818685 Angela A REQUIP 4 MG ORAL TABLET 1 po qd 0 3 ROPINIROLE HCL 31082003824 Angela A ITRACONAZOLE 100 MG CAPS 0 3 ITRACONAZOLE 22044261545 Angela A ACTOPLUS MET 15-850 MG TABS 1 po bid 0 304 PIOGLITAZONE HCL-METFORMIN HCL 64713108176 Angela A METOCLOPRAMIDE HCL 5 MG TABS 1 po qid 0 304 METOCLOPRAMIDE HCL 30592736092 Angela A OXYBUTYNIN CHLORIDE ER 10 MG [id number] 1 po qd 0 3 OXYBUTYNIN CHLORIDE 43937909119 Angela A PROAIR HFA 108 (90 Base) MCG/ACT INHALATION AEROSOL SOLUTION 0 304 ALBUTEROL SULFATE 67808535392 Angela A SPIRIVA HANDIHALER 18 MCG CAPS 1 po qd 0 304 TIOTROPIUM BROMIDE MONOHYDRATE 21768408774 Angela A SYMBICORT 80-4.5 MCG/ACT AERO 0 304 BUDESONIDE-FORMO TEROL FUMARATE 38622637754 Angela A METOPROLOL TARTRATE 25 MG TABS 1 po qd 0 304 METOPROLOL TARTRATE 63793902384 Angela A FUROSEMIDE 40 MG TABS 1 po qd 0 3/04 FUROSEMIDE 41567432149 Angela A GLIPIZIDE 10 MG TABS 1 po bid 0 3/04 GLIPIZIDE 52913375588 Angela A LEVO-T 50 MCG TABS 1 po qd 0 3/04 LEVOTHYROXINE SODIUM 62873602887 Angela A LEVO-T 50 MCG TABS 1 po qd 0 3/04 LEVOTHYROXINE SODIUM 25726488536 Stefany G GLIPIZIDE 10 MG TABS 1 po bid 0 3/04 GLIPIZIDE 63318197854 Stefany G FUROSEMIDE 40 MG TABS 1 po qd 0 304 FUROSEMIDE 26915116701 Stefany G METOPROLOL TARTRATE 25 MG TABS 1 po qd 0 3/04 METOPROLOL TARTRATE 26650752234 Stefany G SYMBICORT 80-4.5 MCG/ACT AERO 0 3/04 BUDESONIDE-FORMO TEROL FUMARATE 61495061329 Stefany G SPIRIVA HANDIHALER 18 MCG CAPS 1 po qd 04/08 TIOTROPIUM BROMIDE MONOHYDRATE 85570085312 Stefany Petersen PROAIR HFA 108 (90 Base) MCG/ACT INHALATION AEROSOL SOLUTION 0 3 ALBUTEROL SULFATE 30697858071 Stefany Petersen OXYBUTYNIN CHLORIDE ER 10 MG [id number] 1 po qd 11/16 OXYBUTYNIN CHLORIDE 06498036141 Stefany Petersen METOCLOPRAMIDE HCL 5 MG TABS 1 po qid 0 3 METOCLOPRAMIDE HCL 25233767952 Stefany Petersen ACTOPLUS MET 15-850 MG TABS 1 po bid 0 3 PIOGLITAZONE HCL-METFORMIN HCL 08326548704 Stefany Petersen ITRACONAZOLE 100 MG CAPS ITRACONAZOLE 26173552398 Stefany Petersen REQUIP 4 MG ORAL TABLET 1 po qd 0 07/06 ROPINIROLE HCL 98730821585 Stefany Petersen MELOXICAM 15 MG TABS 1 po qd 0 3 MELOXICAM 32357895938 Stefany Petersen DALIRESP 500 MCG TABS 1 po qd 12/05 ROFLUMILAST 57257529889 Stefany Petersen MONTELUKAST SODIUM 10 MG TABS 1 po qd 0 3 MONTELUKAST SODIUM 37538240046 Stefany Petersen FLUOXETINE HCL (PMDD) 20 MG ORAL CAPSULE 1 po tid 0 3 FLUOXETINE HCL (PMDD) 41652306294 Stefany Petersen [facility] OMEPRAZOLE 20.6 (20 Base) MG ORAL CAPSULE DELAYED RELEASE 1 po bid 0 3 OMEPRAZOLE MAGNESIUM 66569105437 Stefany Petersen LISINOPRIL 20 MG TABS 1 po qd 12/05 LISINOPRIL 88142017047 Stefany Petersen GABAPENTIN 600 MG TABS 1 po qid 0 3 GABAPENTIN 63854277282 Stefany Petersen FUROSEMIDE 40 MG TABS 1 po qd 3 FUROSEMIDE 13354387774 Stefany Petersen ANTI-DIARRHEAL 2 MG CAPS 3 LOPERAMIDE HCL 77271672804 Stefany Petersen AZITHROMYCIN 250 MG TABS 0 04/08 AZITHROMYCIN 98718668602 Stefany Petersen METOPROLOL TARTRATE 25 MG TABS 1 po qd 0 3 METOPROLOL TARTRATE 21157278367 Stefany Petersen FUROSEMIDE 40 MG TABS 1 po bid 0 3 FUROSEMIDE 90317466857 Stefany Petersen DELTASONE 20 MG ORAL TABLET 02/14 PREDNISONE 06308319559 Stefany Petersen OXYBUTYNIN CHLORIDE ER 10 MG [id number] 1 po qd 11/16 OXYBUTYNIN CHLORIDE 83578218005 Stefany Petersen ACTOPLUS MET 15-850 MG TABS 1 po bid 0 3 PIOGLITAZONE HCL-METFORMIN HCL 54614213595 Stefany Petersen GLIPIZIDE 10 MG TABS 1 po bid 0 3 GLIPIZIDE 72036347078 Stefany Petersen DOXYCYCLINE MONOHYDRATE 100 MG CAPS 0 3 DOXYCYCLINE MONOHYDRATE 45190888368 Stefany Petersen SYMBICORT 80-4.5 MCG/ACT AERO 0 3 BUDESONIDE-FORMO TEROL FUMARATE 64872596420 Stefany Petersen SPIRIVA HANDIHALER 18 MCG CAPS 1 po qd 0 7 TIOTROPIUM BROMIDE MONOHYDRATE 57085950300 Stefany Petersen PROAIR HFA 108 (90 Base) MCG/ACT INHALATION AEROSOL SOLUTION 0 3/ ALBUTEROL SULFATE 85672741584 Stefany Petersen DALIRESP 500 MCG TABS 1 po qd 12/05 ROFLUMILAST 79884823069 Stefany Petersen ITRACONAZOLE 100 MG CAPS 1 po qid 0/10 ITRACONAZOLE 39552092354 Stefany G Medications Administered No information available. [...] Procedures Code Procedure Name Date Entry Date 00502 Hepatitis C Atb: (ICD 10 Code: Z11.59) 20 23/04/29 CPT-10059 CMP CPT-32541 Itraconazole Level 4 CPT-37769 CMP CPT-34735 Itraconazole Level 8 CPT-68275 Itraconazole Level 6 CPT-31256 Itraconazole Level 6 CPT-60389 CMP [id number] CBC with Differential 2015 CPT-67456 Itraconazole Level 3 CPT-cdpcr C-Diff PCR Vital [...] Directive Description Start Date DURABLE POWER OF HEAD CHEF LIVING WILL ON FILE
--- OUTSIDE RECORDS SUMMARY | 2025-06-16 07:38 | XMS_ITS | Clinical Summary ---
Author Organization Healthcare Address [address] [place] [address] Care Team Providers Care Underwear Finisher Name Role Phone Tonya Freeman APRN Primary Care Provider + [phone] Social History Tobacco Use Types Packs/Day Years Used Date Smoking Tobacco: Never Assessed Comments Unknown Sex and Gender Information Value Date Recorded Sex Assigned at Not on file Legal Sex Female 7:29 PM EDT Gender Identity Not on file Sexual Orientation Not on file Plan of Treatment Not on file Care Teams Underwear Finisher Relationship Specialty Start Date End Date Tonya Freeman APRN [address] [place] [address] PCP - General 02/19/21
--- OUTSIDE RECORDS SUMMARY | 2025-06-16 07:38 | XMS_ITS | Clinical Summary ---
Author Organization [facility] ([place], [place], [place], [place]) Address [address] [place] [address] Care Team Providers Care Hogshead Stripper Name Role Phone Unavailable Primary Care Provider [...] (02/01/2023): Added automatically from request for surgery [id number] Social History Tobacco Use Types Packs/Day Years [...] Date Garcia rded Speak language other than Chilean at home Not on file 10/27/2023 Want [...] or (1 - 1-dose 75+ series) 2024 Falls Risk Screening 10/09/2024 COVID-19 VACCINE (4 - 2024-2 6 season) 2025 11/02/2021, 12/10/2020, 11/12/2020, Additional history exists Influenza Vaccine (#1) 2025 2, 06/30/2020, 07/12/2019 Procedures Procedure Name Priority Date/Time Associated Diagnosis Comments HEMOGLOBIN A1C Add-On 02/02/2023 3:00 AM EDT from Last 3 Months or Most Recently Relevant to Health Maintenance Results * Hemoglobin A1c (02/02/2023 3:00 AM EDT) Hemoglobin A1C 8.0 % 02/02/2023 11:14 AM EDT [facility] Comment: Hemoglobin A1C levels are related to mean glucose during the preceding 2-3 months. Less than 7% demonstrates glycemic control in diabetic patients. Hemoglobin AlC % Suggested Diagnosis > or = 6.5 Diabetic 5.7 - 6.4 Prediabetic <5.7 Non-diabetic eAVG Glucose 182.9 mg/dL 02/02/2023 11:14 AM EDT [facility] Blood Venipuncture / Unknown 02/02/2023 3:00 AM EDT 02/02/2023 3:05 AM EDT Marylou Werner MD LAB BLOOD ORDERABLES Final R esult [facility] [address] [phone] from Last 3 Months or Most Recently Relevant to Health Maintenance Insurance [employer] MEDICARE PPO MEDICAID OF [place] Advance Directives For more information, please contact: [phone] Documents on File Type Date Recorded Patient Mgmt Specialist Expl anation Power of Collections Manager 01/31/2023 * DNR - Limited Additional Intervention (Latest Code Status on File) Date Activated Date Inactivated Comments 01/31/2023 9:46 PM 02/06/2023 5:29 PM If no pulse: NO intervention If has pulse: NO Intubation. May use BiPAP/CPAP Call ACUPRESSURIST * Full Code Date Activated Date Inactivated Comments 01/31/2023 8:28 PM 01/31/2023 9:46 PM Healthcare Agents on File Name Relationship Healthcare Agent Relationshi p Communication Rafael Fernandez Son First Alternate Healthcare Decision-Maker Cony Rebecca [id number] Second Alternate Healthcare Decision-Maker
--- OUTSIDE RECORDS SUMMARY | 2025-06-16 07:39 | XMS_ITS | Clinical Summary ---
[facility] Address [address] [place] [address] Care Team Providers Care Ship Propeller Finisher Name Role Phone Provider, No Known Primary [...] - Adults (1 - 1-dose 75+ series) 4 COVID-19 Vaccine (1 - 2023- season) 2025 INFLUENZA VACCINE 07/09/2025 Insurance MEDICAID [place] [employer] MEDICARE ADVANTAGE Care Teams Ship Propeller Finisher Relationship Specialty Start Date End Date Provider, No Known [facility] [place] [address] PCP - General 12/10/15
[2025-06-16 07:59] LABS: Anion Gap 7.3 mEq/L (5-15); Blood Urea Nitrogen 55 mg/dl (7-17); Calcium 8.4 mg/dl (8.4-10.2); Carbon Dioxide 36 mmol/L (22.0-30.0); Chloride 97 mmol/L (98-107); Creatinine,Serum 2.00 mg/dl (0.52-1.04); Estimated Glomerular Filt Rate 24 ml/min (>60); GFR (African American) 29 ML/MIN (>60); Glucose 80 mg/dl (74-100); Potassium 4.3 mmoL/L (3.5-5.1); Sodium 136 mmol/L (136-145)
== END 2025-06-16 23:59 | disposition home or self-care (01) ==
PROVIDERS: PCP Family Medicine; Visit Provider Family Medicine
DX: N18.9 Chronic kidney disease, unspecified (principal)
CPT/HCPCS: 36415; 80048

== ENCOUNTER 2025-06-20 08:08 | Outpatient (CLI) | payer MEDICARE, MEDICAID, SELFPAY ==
--- OUTSIDE RECORDS SUMMARY | 2025-03-28 05:50 | XMS_ITS | Continuity of Care Document ---
Author Organization [address] [place] [address] [address] [place] [address] Phone Care Team Providers Care Data Support Specialist Name Role Phone Tucker HARLEYAida Ulloa Unavailable Unavailable Allergies, Adverse Reactions, Alerts Substance Reaction Status Criticality metformin Active No Information PENICILLIN Active No Information oxycodone Active No Information SITAGLIPTIN PHOSPHATE Active No Inf ormation Medications Medication Instructions Dosage Effective Dates (start - stop) Status Comments Mucus Relief 400 mg tablet - Active insulin aspar prot-insulin aspart 100 unit/mL (70-30) subcutaneous pen - Active aspirin 81 mg chewable tablet - Active acetaminophen 500 mg tablet - Active fluticasone 250 mcg-salmeterol 50 mcg/dose blistr powdr for inhalation - Active zinc oxide 20 % topical ointment - Active cetirizine 10 mg tablet - Ac tive torsemide 100 mg tablet - Ac tive Adult Tussin Chest Congestion 100 mg/5 mL oral liquid - Active FeroSul 325 mg (65 mg iron) tablet - Active melatonin 3 mg tablet - Acti ve Vitamin D3 25 mcg (1,000 unit) tablet - Active Lidocaine Pain Relief 4 % topical patch - Active sodium chloride 0.45 % intravenous solution - Active Wixela Inhub 250 mcg-50 mcg/dose powder for inhalation - Active ciprofloxacin 250 mg tablet - Active ondansetron HCl 4 mg tablet - Active fluconazole 150 mg tablet - Active hydrocortisone 1 % topical ointment - Active insulin aspar prt-insulin aspart 100 unit/mL (70-30) subcutaneous soln - Active ferrous sulfate 325 mg (65 mg iron) tablet,delayed release - Active ipratropium 0.5 mg-albuterol 3 mg (2.5 mg base)/3 mL nebulization soln - Active hydrocodone 5 mg-acetaminophen 325 mg tablet - Active fluoxetine 10 mg capsule - A ctive GaviLyte-G 236 gram-22.74 gram-6.74 gram-5.86 gram oral solution - Active fluoxetine 20 mg capsule - A ctive acyclovir 800 mg tablet - Ac tive torsemide 20 mg tablet - Act jakub Mucus DM 30 mg-600 mg tablet,extended release - Active prednisone 20 mg tablet - Ac tive montelukast 10 mg tablet - A ctive nadolol 20 mg tablet - Activ e oxybutynin chloride ER 10 mg tablet,extended release 24 hr - Active pantoprazole 40 mg tablet,delayed release - Active bumetanide 2 mg tablet - Act jakub insulin glargine-yfgn (U-100) 100 unit/mL (3 mL) subcutaneous pen - Active ropinirole 4 mg tablet - Act jakub famotidine 40 mg tablet - Ac tive potassium chloride ER 10 mEq tablet,extended release - Active lisinopril 20 mg tablet - Ac tive roflumilast 500 mcg tablet - Active spironolactone 100 mg tablet - Active tizanidine 4 mg tablet - Act jakub cilostazol 100 mg tablet - A ctive glipizide 5 mg tablet - Acti ve mupirocin 2 % topical ointment - Active spironolactone 25 mg tablet - Active insulin aspart (U-100) 100 unit/mL (3 mL) subcutaneous pen - Active amlodipine 5 mg tablet - Act jakub bumetanide 1 mg tablet - Act jakub gabapentin 300 mg capsule - Active Incruse Ellipta 62.5 mcg/actuation powder for inhalation - Active albuterol sulfate 1.25 mg/3 mL solution for nebulization - Active BD AutoShield Duo Pen Needle 30 gauge x 12/22 - Active ibuprofen 800 mg tablet - Ac tive venlafaxine ER 75 mg tablet,extended release 24 hr - Active cholestyramine (with sugar) 4 gram powder for susp in a packet - Active clotrimazole 1 % topical cream - Active venlafaxine ER 37.5 mg capsule,extended release 24 hr - Active diclofenac 1 % topical gel - Active nystatin 100,000 unit/gram topical powder - Active doxycycline hyclate 100 mg tablet - Active gabapentin 400 mg capsule - Active Novolin 70-30 FlexPen U-100 Insulin 100 unit/mL (70-30) subcutaneous - Active furosemide 40 mg tablet - Ac tive Droplet Pen Needle 31 gauge x 1 - Active fluticasone propionate 50 mcg/actuation nasal spray,suspension - Active potassium chloride ER 10 mEq capsule,extended release - Active gabapentin 600 mg tablet - A ctive Breo Ellipta 100 mcg-25 mcg/dose powder for inhalation - Active Spiriva with HandiHaler 18 mcg and inhalation capsules - Active albuterol sulfate HFA 90 mcg/actuation aerosol inhaler - Active Daliresp 500 mcg tablet - Ac tive Lantus Solostar U-100 Insulin 100 unit/mL (3 mL) subcutaneous pen - Active tramadol 50 mg tablet - Acti ve triamcinolone acetonide 0.1 % topical cream - Active azithromycin 250 mg tablet - Active doxycycline monohydrate 100 mg capsule - Active Accu-Chek Anita Plus test strips - Active Suprep Bowel Prep Kit 17.5 gram-3.13 gram-1.6 gram oral solution - Active Procedures Procedure Date Periodic Oral Evaluation Adjust Complete Denture [facility] Call Periodic Oral Evaluation Reline Complete Man Yolo Chair Adjust Complete Denture Maxil Compsve Oral Eval- New/Est Pat Complete Series Of Radiographic Images N Replace Broken Teeth-Per Tooth 23 FUNDUS PHOTOGRAPHY EYE EXAM NEW PATIENT Advance Directives Directive Yes / No Effective Date File Name No Information Encounters Encounter Description Practice Location Reason(s) For Visit Diagnoses Date Provider Providers Copied on Encounter [address] [place] [address], [address] [facility] [address], [place], [id number], tel:[phone] [facility] Encounter for dental examination and cleaning without abnormal findings Tucker Parra. [address] [facility] [address], [place], [place], [id number], . tel:[phone] Referring Provider: Arabella Jonas. [address] [place] [address], [address] [facility] [address], [place], [place], [id number], tel:[phone] [facility] Encounter for fitting and adjustment of dental prosthetic deviceEncount er for dental examination and cleaning without abnormal findings 4 Guille Polanco. . Referring Provider: Arabella Jonas. [address] [place] [address], [address] [facility], [place], [place], [id number], tel:[phone] [facility] Encounter for dental examination and cleaning without abnormal findingsEncou nter for fitting and adjustment of dental prosthetic device 4 Deann Rhodes. [address] [facility] [address], [place], [place], [id number], [place]. tel:[phone] Referring Provider: Arabella Jonas. [address] [place] [address], [address] [facility], [place], [place], [id number], [place] tel:[phone] [facility] No Information 4 Jose Elias Trammell. [address] [facility] [place], [address], [place]. tel:[phone] [place] [address], [address] [facility], [place], [place], [id number], [place] tel:[phone] [facility] Encounter for dental examination and cleaning without abnormal findingsEncou nter for fitting and adjustment of dental prosthetic device 3 Gonzales Smith. [address] [facility] [address], [place], [place], [id number], [place]. tel:[phone] Referring Provider: Arabella Jonas. [address] [place] [address], [address] [facility], [place], [place], [id number], [place] tel:[phone] [facility] Diabetic eye exam (chief complaint) Type 2 diabetes mellitus without complications Vitreous degeneration, left eye 3 Herminio Betancourt. , [place]. Referring Provider: Arablela Jonas. Family History Family Member Type Diagnosis Age At Onset No Information Payers Payer name Insurance type Covered republican ID Authoriza tion(s) DDS [employer] Medicare Adv ZZ [id number] DDS Medicaid [facility] [id number] Social History Type Description Quantity Date Captured Comments Sex Female Smoking Status No Information Chief Complaint And Reason For Visit No Information Reason For Referral Reason For Referral No Information Plan Of Treatment Date Type Action Status Appointment Ambar Fernandez BOOKED Appointment Ambar Fernandez BOOKED Patient Education Learning About Dental Care and Your Health Problem completed History Of Present Illness Encounter Date Complaint History Of Prese nt Illness Diabetic eye exam The 72 year ol d female presents for evaluation of Diabetic eye exam in the right eye and left eye. It occurs always. The onset was gradual. Patient was treated 1 month ago for Cataract OU by Outside Dr. Functional Status Date Functional Assessmen t No Information Instructions Date Instruction Additional Infor julien Return in 12-15 vernell hs for dilated fundus exam. Related to Type 2 diabetes mellitus without complications Impression/Plan - Vi treous floaters are present; however, no holes, breaks, or tears are evident. Related to Vitreous degeneration, left eye Impression/Plan - No active diabetic retinopathy present in either eye. We will monitor at regular intervals. Related to Type 2 diabetes mellitus without complications Follow up - Return i n 12-15 months for dilated fundus exam. Related to Type 2 diabetes mellitus without complications Assessments Type Assessment Date No Information Patient Care Teams Name Effective Dates (start - stop) Status Members No Information
--- OUTSIDE RECORDS SUMMARY | 2025-06-20 08:28 | XMS_ITS | Clinical Summary ---
Author Organization [facility] Address [address] [place] [address] Phone Care Team Providers Care Financial Administrator Name Role Phone Marylou Werner MD [phone] [ ] Conditions or Problems Problem Name Problem Code Onset Date Status Entry Date Provider Comment Standard Description Annotate GERD 380471520 (SNOMED CT) 12/09 Active 12/09 Joshua Schmid MD Gastroesophageal reflux disease Tobacco abuse 21920773 (SNOMED CT) 12/09 Active 12/09 Joshua cShmid MD Tobacco dependence syndrome Diarrhea 01196450 (SNOMED CT) 12/08 Active 12/08 Chantell White Diarrhea Diabetes mellitus type II 64845848 (SNOMED CT) 12/08 Active 12/08 Chantell White Type 2 diabetes mellitus Acute pulmonary blastomycosis 139345740 (SNOMED CT) 12/08 Active 12/08 Chantell White Acute pulmonary blastomycosis Chronic pulmonary blastomycosis 452764706 (SNOMED CT) 12/08 Active 12/08 Chantell White Chronic pulmonary blastomycosis Medications Medication Instructions Start Date Stop Date Generic Name NDC Provider GLIPIZIDE 10 MG TABS take twice daily 05/09 GLIPIZIDE 91919889756 Joshua Schmid MD ITRACONAZOLE 100 MG CAPS Take two by mouth twice daily. 8 ITRACONAZOLE 14748748040 Joshua Schmid MD ITRACONAZOLE 100 MG CAPS take 2 po bid ITRACONAZOLE 86414376232 Joshua Schmid MD ITRACONAZOLE 100 MG CAPS Take two by mouth twice daily. 0/10 ITRACONAZOLE 19296079704 Joshua Schmid MD LEVOTHYROXINE SODIUM 50 MCG TABS daily 12/22 LEVOTHYROXINE SODIUM 01302797007 Tanisha L GNP OMEPRAZOLE 20 MG TBEC twice daily 12/22 OMEPRAZOLE 01749347042 Tanisha L SYMBICORT 80-4.5 MCG/ACT AERO 2 puffs twice daily BUDESONIDE-FORMO TEROL FUMARATE 77064580663 Marylou Martinez RN SPIRIVA HANDIHALER 18 MCG CAPS daily TIOTROPIUM BROMIDE MONOHYDRATE 58080620660 Marylou Martinez RN SINGULAIR 10 MG TABS daily MONTELUKAST SODIUM 27396232795 Marylou Martinez RN FLONASE ALLERGY RELIEF 50 MCG/ACT SUSP daily FLUTICASONE PROPIONATE 43498545511 Marylou Martinez RN DALIRESP 500 MCG TABS daily ROFLUMILAST 46106194655 Marylou Martinez RN DUTOPROL 25-12.5 MG ORAL TABLET EXTENDED RELEASE 24 HOUR daily METOPROLOL-HYDRO CHLOROTHIAZIDE 75071117898 Marylou Martinez RN REQUIP 4 MG ORAL TABLET 4 mg daily ROPINIROLE HCL 51563417569 Marylou Martinez RN KLOR-CON 10 10 MEQ CR-TABS twice daily POTASSIUM CHLORIDE 68814431024 Marylou Martinez RN GNP OMEPRAZOLE 20 MG TBEC twice daily 12/22 OMEPRAZOLE 38261635315 Marylou Martinez RN METOCLOPRAMIDE HCL 5 MG TABS one tab three times daily METOCLOPRAMIDE HCL 72913397024 Marylou Martinez RN PIOGLITAZONE HCL-METFORMIN HCL 15-850 MG TABS twice daily PIOGLITAZONE HCL-METFORMIN HCL 64275299210 Marylou Martinez RN MOBIC 15 MG ORAL TABLET daily MELOXICAM 56653358922 Marylou Martinez RN LISINOPRIL 20 MG TABS daily LISINOPRIL 00558515380 Marylou Martinez RN LEVOTHYROXINE SODIUM 50 MCG TABS daily 0 12/22 LEVOTHYROXINE SODIUM 34739645816 Marylou Martinez RN FLORICAL TABS 60mg daily SOD FLUORIDE-CA CARBONATE TABS 08967323336 Marylou Martinez RN GLIPIZIDE 10 MG TABS take twice daily 0 05/09 GLIPIZIDE 61717502843 Angela A GABAPENTIN 600 MG TABS take 2 tablets twice daily GABAPENTIN 56978143104 Angela A FUROSEMIDE 40 MG TABS take once daily as needed FUROSEMIDE 42538081435 Angela A ITRACONAZOLE 100 MG CAPS 1 po qid 0 3 ITRACONAZOLE 35010141984 Angela A DALIRESP 500 MCG TABS 1 po qd 0 3 ROFLUMILAST 54654209895 Angela A PROAIR HFA 108 (90 Base) MCG/ACT INHALATION AEROSOL SOLUTION 0 3 ALBUTEROL SULFATE 95021054078 Angela A SPIRIVA HANDIHALER 18 MCG CAPS 1 po qd 0 3 TIOTROPIUM BROMIDE MONOHYDRATE 87249633250 Angela A SYMBICORT 80-4.5 MCG/ACT AERO 0 3 BUDESONIDE-FORMO TEROL FUMARATE 63353018549 Angela A DOXYCYCLINE MONOHYDRATE 100 MG CAPS 0 3 DOXYCYCLINE MONOHYDRATE 76884950785 Angela A GLIPIZIDE 10 MG TABS 1 po bid 0 3 GLIPIZIDE 01793823716 Angela A ACTOPLUS MET 15-850 MG TABS 1 po bid 0 3 PIOGLITAZONE HCL-METFORMIN HCL 21836616988 Angela A OXYBUTYNIN CHLORIDE ER 10 MG [id number] 1 po qd 0 3 OXYBUTYNIN CHLORIDE 62657822398 Angela A DELTASONE 20 MG ORAL TABLET 0 3 PREDNISONE 60878422085 Angela A FUROSEMIDE 40 MG TABS 1 po bid 0 3 FUROSEMIDE 88720667533 Angela A METOPROLOL TARTRATE 25 MG TABS 1 po qd 0 3 METOPROLOL TARTRATE 29837190793 Angela A AZITHROMYCIN 250 MG TABS 0 3 AZITHROMYCIN 87281108263 Angela A ANTI-DIARRHEAL 2 MG CAPS 0 3 LOPERAMIDE HCL 86445024853 Angela A FUROSEMIDE 40 MG TABS 1 po qd 0 3 FUROSEMIDE 87553850504 Angela A GABAPENTIN 600 MG TABS 1 po qid 0 3 GABAPENTIN 41876534307 Angela A LISINOPRIL 20 MG TABS 1 po qd 0 3 LISINOPRIL 12980003713 Angela A [facility] OMEPRAZOLE 20.6 (20 Base) MG ORAL CAPSULE DELAYED RELEASE 1 po bid 0 3 OMEPRAZOLE MAGNESIUM 42255824388 Angela A FLUOXETINE HCL (PMDD) 20 MG ORAL CAPSULE 1 po tid 0 3 FLUOXETINE HCL (PMDD) 86188699420 Angela A MONTELUKAST SODIUM 10 MG TABS 1 po qd 0 3 MONTELUKAST SODIUM 94359448265 Angela A DALIRESP 500 MCG TABS 1 po qd 0 304 ROFLUMILAST 41005014200 Angela A MELOXICAM 15 MG TABS 1 po qd 0 3 MELOXICAM 79091734429 Angela A REQUIP 4 MG ORAL TABLET 1 po qd 0 3 ROPINIROLE HCL 85307043925 Angela A ITRACONAZOLE 100 MG CAPS 0 3 ITRACONAZOLE 05983224539 Angela A ACTOPLUS MET 15-850 MG TABS 1 po bid 0 304 PIOGLITAZONE HCL-METFORMIN HCL 26321636288 Angela A METOCLOPRAMIDE HCL 5 MG TABS 1 po qid 0 304 METOCLOPRAMIDE HCL 77895401062 Angela A OXYBUTYNIN CHLORIDE ER 10 MG [id number] 1 po qd 0 3 OXYBUTYNIN CHLORIDE 89348538391 Angela A PROAIR HFA 108 (90 Base) MCG/ACT INHALATION AEROSOL SOLUTION 0 304 ALBUTEROL SULFATE 05958475026 Angela A SPIRIVA HANDIHALER 18 MCG CAPS 1 po qd 0 304 TIOTROPIUM BROMIDE MONOHYDRATE 67566831468 Angela A SYMBICORT 80-4.5 MCG/ACT AERO 0 304 BUDESONIDE-FORMO TEROL FUMARATE 50808751458 Angela A METOPROLOL TARTRATE 25 MG TABS 1 po qd 0 304 METOPROLOL TARTRATE 37045702143 Angela A FUROSEMIDE 40 MG TABS 1 po qd 0 3/04 FUROSEMIDE 14752760170 Angela A GLIPIZIDE 10 MG TABS 1 po bid 0 3/04 GLIPIZIDE 98081816234 Angela A LEVO-T 50 MCG TABS 1 po qd 0 3/04 LEVOTHYROXINE SODIUM 53260960664 Angela A LEVO-T 50 MCG TABS 1 po qd 0 3/04 LEVOTHYROXINE SODIUM 63445838357 Stefany G GLIPIZIDE 10 MG TABS 1 po bid 0 3/04 GLIPIZIDE 78675987524 Stefany G FUROSEMIDE 40 MG TABS 1 po qd 0 304 FUROSEMIDE 24648318615 Stefany G METOPROLOL TARTRATE 25 MG TABS 1 po qd 0 3/04 METOPROLOL TARTRATE 33153873111 Stefany G SYMBICORT 80-4.5 MCG/ACT AERO 0 3/04 BUDESONIDE-FORMO TEROL FUMARATE 54225245390 Stefany G SPIRIVA HANDIHALER 18 MCG CAPS 1 po qd 04/08 TIOTROPIUM BROMIDE MONOHYDRATE 51756457508 Stefany Petersen PROAIR HFA 108 (90 Base) MCG/ACT INHALATION AEROSOL SOLUTION 0 3 ALBUTEROL SULFATE 27261767589 Stefany Petersen OXYBUTYNIN CHLORIDE ER 10 MG [id number] 1 po qd 11/16 OXYBUTYNIN CHLORIDE 01159592930 Stefany Petersen METOCLOPRAMIDE HCL 5 MG TABS 1 po qid 0 3 METOCLOPRAMIDE HCL 83883597995 Stefany Petersen ACTOPLUS MET 15-850 MG TABS 1 po bid 0 3 PIOGLITAZONE HCL-METFORMIN HCL 27275504313 Stefany Petersen ITRACONAZOLE 100 MG CAPS ITRACONAZOLE 02726809095 Stefany Petersen REQUIP 4 MG ORAL TABLET 1 po qd 0 07/06 ROPINIROLE HCL 20872479603 Stefany Petersen MELOXICAM 15 MG TABS 1 po qd 0 3 MELOXICAM 43616564656 Stefany Petersen DALIRESP 500 MCG TABS 1 po qd 12/05 ROFLUMILAST 97401269302 Stefany Petersen MONTELUKAST SODIUM 10 MG TABS 1 po qd 0 3 MONTELUKAST SODIUM 21081763679 Stefany Petersen FLUOXETINE HCL (PMDD) 20 MG ORAL CAPSULE 1 po tid 0 3 FLUOXETINE HCL (PMDD) 85129389202 Stefany Petersen [facility] OMEPRAZOLE 20.6 (20 Base) MG ORAL CAPSULE DELAYED RELEASE 1 po bid 0 3 OMEPRAZOLE MAGNESIUM 59825696864 Stefany Petersen LISINOPRIL 20 MG TABS 1 po qd 12/05 LISINOPRIL 36591649240 Stefany Petersen GABAPENTIN 600 MG TABS 1 po qid 0 3 GABAPENTIN 70685039815 Stefany Petersen FUROSEMIDE 40 MG TABS 1 po qd 3 FUROSEMIDE 00428049636 Stefany Petersen ANTI-DIARRHEAL 2 MG CAPS 3 LOPERAMIDE HCL 10388893040 Stefany Petersen AZITHROMYCIN 250 MG TABS 0 04/08 AZITHROMYCIN 44762155699 Stefany Petersen METOPROLOL TARTRATE 25 MG TABS 1 po qd 0 3 METOPROLOL TARTRATE 39101520283 Stefany Petersen FUROSEMIDE 40 MG TABS 1 po bid 0 3 FUROSEMIDE 55771046147 Stefany Petersen DELTASONE 20 MG ORAL TABLET 02/14 PREDNISONE 62150752744 Stefany Petersen OXYBUTYNIN CHLORIDE ER 10 MG [id number] 1 po qd 11/16 OXYBUTYNIN CHLORIDE 80359583823 Stefany Petersen ACTOPLUS MET 15-850 MG TABS 1 po bid 0 3 PIOGLITAZONE HCL-METFORMIN HCL 61326507720 Stefany Petersen GLIPIZIDE 10 MG TABS 1 po bid 0 3 GLIPIZIDE 42102482638 Stefany Petersen DOXYCYCLINE MONOHYDRATE 100 MG CAPS 0 3 DOXYCYCLINE MONOHYDRATE 74213640329 Stefany Petersen SYMBICORT 80-4.5 MCG/ACT AERO 0 3 BUDESONIDE-FORMO TEROL FUMARATE 93016022318 Stefany Petersen SPIRIVA HANDIHALER 18 MCG CAPS 1 po qd 0 7 TIOTROPIUM BROMIDE MONOHYDRATE 79400601860 Stefany Petersen PROAIR HFA 108 (90 Base) MCG/ACT INHALATION AEROSOL SOLUTION 0 3/ ALBUTEROL SULFATE 22509132142 Stefany Petersen DALIRESP 500 MCG TABS 1 po qd 12/05 ROFLUMILAST 84396502752 Stefany Petersen ITRACONAZOLE 100 MG CAPS 1 po qid 0/10 ITRACONAZOLE 30390139240 Stefany G Medications Administered No information available. [...] Procedures Code Procedure Name Date Entry Date 58676 Hepatitis C Atb: (ICD 10 Code: Z11.59) 20 23/04/29 CPT-59504 CMP CPT-03450 Itraconazole Level 4 CPT-73608 CMP CPT-49558 Itraconazole Level 8 CPT-91803 Itraconazole Level 6 CPT-57769 Itraconazole Level 6 CPT-74594 CMP [id number] CBC with Differential 2015 CPT-27528 Itraconazole Level 3 CPT-cdpcr C-Diff PCR Vital [...] Directive Description Start Date DURABLE POWER OF DROP FORGER HELPER LIVING WILL ON FILE
--- OUTSIDE RECORDS SUMMARY | 2025-06-20 08:28 | XMS_ITS | Clinical Summary ---
Author Organization [facility] Address [address] [place] [address] Care Team Providers Care Ballroom Dancer Name Role Phone Provider, No Known Primary [...] season) 2025 INFLUENZA VACCINE 07/09/2025 Insurance MEDICAID [place] [employer] MEDICARE ADVANTAGE Care Teams Ballroom Dancer Relationship Specialty Start Date End Date Provider, No Known [facility] [place] [address] PCP - General 12/10/15
--- OUTSIDE RECORDS SUMMARY | 2025-06-20 08:28 | XMS_ITS | Clinical Summary ---
Author Organization [facility] Address [address] [place] [address] Care Team Providers Care Orthodontic Technician Assistant Name Role Phone Tonya Freeman APRN Primary Care Provider + [phone] Social History Tobacco Use Types Packs/Day Years Used Date Smoking Tobacco: Never Assessed Comments Unknown Sex and Gender Information Value Date Recorded Sex Assigned at Not on file Legal Sex Female 7:29 PM EDT Gender Identity Not on file Sexual Orientation Not on file Plan of Treatment Not on file Care Teams Orthodontic Technician Assistant Relationship Specialty Start Date End Date Tonya Freeman APRN [address] [place] [address] PCP - General 02/19/21
[2025-06-20 08:50] LABS: Anion Gap 7.1 mEq/L (5-15); Blood Urea Nitrogen 44 mg/dl (7-17); Calcium 8.8 mg/dl (8.4-10.2); Carbon Dioxide 35 mmol/L (22.0-30.0); Chloride 101 mmol/L (98-107); Creatinine,Serum 1.20 mg/dl (0.52-1.04); Estimated Glomerular Filt Rate 44 ml/min (>60); GFR (African American) 53 ML/MIN (>60); Glucose 53 mg/dl (74-100); Potassium 5.1 mmoL/L (3.5-5.1); Sodium 138 mmol/L (136-145)
== END 2025-06-20 23:59 | disposition home or self-care (01) ==
PROVIDERS: PCP Family Medicine; Visit Provider Family Medicine
DX: N18.9 Chronic kidney disease, unspecified (principal)
CPT/HCPCS: 36415; 80048

== ENCOUNTER 2025-07-16 09:09 | Emergency (ER) | payer MEDICARE, MEDICAID, SELFPAY ==
[2025-07-16] VITALS (7 sets, daily range): BP systolic 111–145; BP diastolic 44–61; PULSE 74–86; RESP 16–20; TEMP 37.4–37.6; O2SAT 94–99; BMI 47.2
--- NOTE | 2025-07-16 09:09 | XR_ITS ---
FINAL REPORT CLINICAL HISTORY: encephalopathy COMPARISON: 04/26/2019 FINDINGS: A portable view of the chest was obtained. Cardiac and mediastinal silhouettes are within normal limits. Low lung volumes are present. There are left greater than right basilar opacities, that may represent pneumonia versus atelectasis. Small pleural effusions are not excluded. No pneumothorax is present. IMPRESSION: Left greater than right basilar opacities, that may represent pneumonia versus atelectasis. Reviewed, Interpreted and Dictated by Azeb Palacios MD Transcribed by Maris Nielson Authenticated and [facility]
--- NOTE | 2025-07-16 09:10 | HMH.EDGENADL ---
Discharge Plan Disposition Patient Disposition: er [facility] Prescriptions Prescriptions: No Action albuterol sulfate 1.25 mg/3 mL solution for nebulization 1.25 mg inhalation TIDP PRN (Reason: Shortness Of Breath) acetaminophen-codeine 300-15 mg tablet 1 tab PO Q4H PRN (Reason: pain) Qty: 180 0RF sennosides [senna] 8.6 mg tablet 17.2 mg PO DAILY nitroglycerin 0.4 mg tablet, sublingual 0.4 mg sublingual Q5-15M PRN Rx Instructions: do not exceed 3 doses per episode bisacodyl 10 mg suppository 10 mg AR DAILY PRN Incruse Ellipta 62.5 mcg/actuation blister with device 1 inh inhalation DAILY venlafaxine 150 mg capsule,extended release 24hr 150 mg PO DAILY torsemide 100 mg tablet 50 mg PO DAILY cetirizine [Zyrtec] 10 mg tablet 10 mg PO DAILY 90 Days Qty: 90 0RF gabapentin 300 mg capsule 300 mg PO TID Qty: 90 3RF ferrous sulfate 325 mg (65 mg iron) tablet 325 mg PO BID aspirin 81 mg tablet 81 mg PO DAILY clopidogrel [Plavix] 75 mg tablet 75 mg PO DAILY trazodone 50 mg tablet 50 mg PO DAILY pramipexole 0.125 mg tablet 0.125 mg PO DAILY benzonatate 100 mg capsule 100 mg PO TID PRN (Reason: cough) Qty: 60 0RF albuterol-budesonide 90-80 mcg/actuation HFA aerosol inhaler 2 inh inhalation QID PRN (Reason: wheezing) Qty: 10.7 0RF cholecalciferol (vitamin D3) 25 mcg (1,000 unit) capsule 25 mcg PO DAILY Qty: 30 0RF budesonide-formoterol [Symbicort] 160-4.5 mcg/actuation HFA aerosol inhaler 2 puff inhalation BID Qty: 10.2 2RF potassium chloride [K-Tab] 20 mEq tablet extended release 20 meq PO DAILY Qty: 30 2RF acetaminophen 500 mg tablet 500 mg PO .q8 PRN (Reason: pain) oxybutynin chloride 10 mg tablet extended release 24hr 10 mg PO DAILY lisinopril 20 mg tablet 20 mg PO DAILY pantoprazole 40 mg tablet,delayed release (DR/EC) 40 mg PO DAILY montelukast 10 mg tablet 10 mg PO PM roflumilast 500 mcg tablet 500 mcg PO DAILY insulin glargine [Lantus Solostar U-100 Insulin] 100 unit/mL (3 mL) insulin pen 22 unit SQ BID nadolol 20 mg tablet 20 mg PO BID Novolin 70-30 FlexPen U-100 100 unit/mL (70-30) insulin pen 24 unit SQ AC Activity Restrictions/Add. Instructions Additional Instructions/Restrictions: At this time it was felt you are safe to be discharged home. If new or worsening symptoms please do not hesitate to return the emergency department. If you take your oxygen off to go outside and smoke it can cause you to become confused I would recommend against this. I would also recommend against smoking with your oxygen on as this can catch fire. The most reasonable alternative would be for you to quit smoking and take nicotine replacement. Clinical Impressions Clinical Impression: Encephalopathy Print Language Print Language: Citizen Of [place] Discharge ED Provider: Robbin Barbosa General Adult HPI General Chief complaint: Weakness Stated complaint: Lethargic Time Seen by Provider: 07/16/25 09:11 History of Present Illness HPI narrative: Patient is a 75-year-old female past medical history of COPD on 2 L at baseline, CKD, diabetes who presents emergency department for evaluation of encephalopathy. Patient was reportedly hypoxic and running her [facility] after she took off her oxygen to go outside and smoke, patient states that she did take her oxygen off to go smoke and came back inside. Due to encephalopathy they transferred her here for continued evaluation. No trauma, patient has no acute complaints other than being cool and requesting a blanket and food. No chest pain no abdominal pain no other acute complaints at this time. Please note that above description of symptoms, in this electronic medical record under categorization of recalled from ER triage doctor by RN are reflective of an initial nursing assessment, however, is not reflective of my full history and physical exam that was personally taken and clarified. Consequentially, this preceding description of symptoms, which may include the patient's categorized chief complaint in the EMR, do not reflect my personal clinical impression, and the ultimate description of history of present illness and patient stated complaints should be deferred to this section of the note. Unless stated otherwise or congruent with this section of the note, additional signs, symptoms, or incongruence should be interpreted as inaccurate with my clinical impression. Related Data Home Medications ?Medication ?Instructions ?Recorded ?Confirmed albuterol sulfate 1.25 mg/3 mL 1.25 mg inhalation TIDP PRN 07/27/22 07/06/25 solution for nebulization Shortness Of Breath lisinopril 20 mg tablet 20 mg PO DAILY Hypertension 11/01/22 07/06/25 montelukast 10 mg tablet 10 mg PO PM COPD 11/01/22 07/06/25 oxybutynin chloride 10 mg 10 mg PO DAILY INCONTINENCE 11/01/22 07/06/25 tablet,extended release 24 hr pantoprazole 40 mg tablet,delayed 40 mg PO DAILY Reflux/Acid reflux 11/01/22 07/06/25 release roflumilast 500 mcg tablet 500 mcg PO DAILY COPD 11/01/22 07/06/25 aspirin 81 mg tablet 81 mg PO DAILY 05/28/25 07/06/25 clopidogrel 75 mg tablet (Plavix) 75 mg PO DAILY 05/28/25 07/06/25 ferrous sulfate 325 mg (65 mg 325 mg PO BID 05/28/25 07/06/25 iron) tablet pramipexole 0.125 mg tablet 0.125 mg PO DAILY 05/28/25 07/06/25 trazodone 50 mg tablet 50 mg PO DAILY 05/28/25 07/06/25 acetaminophen 500 mg tablet 500 mg PO .q8 PRN pain 06/23/25 07/06/25 bisacodyl 10 mg rectal suppository 10 mg AR DAILY PRN 06/23/25 07/06/25 insulin NPH-regular 70-30 U-100 24 unit SQ AC Diabetes 06/23/25 07/06/25 insulin 100 unit/mL subcutaneous pen (Novolin 70-30 FlexPen U-100 Insulin) insulin glargine 100 unit/mL (3 22 unit SQ BID Diabetes 06/23/25 07/06/25 mL) subcutaneous pen (Lantus Solostar U-100 Insulin) nadolol 20 mg tablet 20 mg PO BID Hypertension 06/23/25 07/06/25 nitroglycerin 0.4 mg sublingual 0.4 mg sublingual Q5-15M PRN 06/23/25 07/06/25 tablet sennosides 8.6 mg tablet (senna) 17.2 mg PO DAILY 06/23/25 07/06/25 torsemide 100 mg tablet 50 mg PO DAILY 06/23/25 07/06/25 umeclidinium 62.5 mcg/actuation 1 inh inhalation DAILY 06/23/25 07/06/25 blister powder for inhalation (Incruse Ellipta) venlafaxine 150 mg 150 mg PO DAILY 06/23/25 07/06/25 capsule,extended release 24 hr Previous Rx's ?Medication ?Instructions ?Recorded cetirizine 10 mg tablet (Zyrtec) 10 mg PO DAILY Allergy symptoms 90 08/08/22 days #90 tabs gabapentin 300 mg capsule 300 mg PO TID #90 caps 05/27/25 albuterol 90 mcg-budesonide 80 2 inh inhalation QID PRN wheezing 06/10/25 mcg/actuation HFA aerosol inhaler #10.7 grams benzonatate 100 mg capsule 100 mg PO TID PRN cough #60 caps 06/10/25 budesonide-formoterol HFA 160 2 puff inhalation BID #10.2 grams 06/10/25 mcg-4.5 mcg/actuation aerosol inhaler (Symbicort) cholecalciferol (vitamin D3) 25 25 mcg PO DAILY #30 caps 06/10/25 mcg (1,000 unit) capsule potassium chloride 20 mEq 20 meq PO DAILY #30 tabs 06/10/25 tablet,extended release (K-Tab) acetaminophen 300 mg-codeine 15 mg 1 tab PO Q4H PRN pain #180 tabs 06/19/25 tablet Allergies Allergy/AdvReac Type Severity Reaction Status Date / Time acetaminophen (From Tylox) Allergy Verified 06/23/25 11:27 metformin Allergy Verified 06/23/25 11:27 Penicillins Allergy Verified 06/23/25 11:27 sitagliptin (From Januvia) Allergy Verified 06/23/25 11:27 oxycodone (From PERCOCET) AdvReac Unknown Verified 06/23/25 11:27 [facility] Disclaimer: The information contained in this section may have been updated after the patient was seen, as this information can be updated by other users. Medical History Major depression, recurrent Blastomycosis Peripheral neuropathy Overactive bladder GERD (gastroesophageal reflux disease) Vitamin D deficiency Congestive heart failure Portal hypertension Impaired mobility Acute exacerbation of chronic obstructive airways disease COPD exacerbation O2 dependent UTI (urinary tract infection) Right lower lobe pneumonia Body mass index (BMI) greater than 40 Muscle weakness (generalized) Chronic kidney disease, stage 4 (severe) Anemia, unspecified Other low back pain Sleep apnea Pneumonia History of COVID-19 Chronic cough Asthma Depression History of diverticulitis History of cataract Allergies Hyperlipidemia Hypertension Edema Skin cancer Breast cancer Metatarsalgia of both feet Onychomycosis of toenail Type 2 diabetes mellitus, with long-term current use of insulin Diabetic foot Diastolic dysfunction CAD (coronary artery disease) History of noncompliance with medical treatment COPD (chronic obstructive pulmonary disease) Hypertensive disorder Intermittent palpitations Surgical History H/O bilateral mastectomy (~02/2012) H/O: hysterectomy History of dental surgery History of surgical removal of lesion nasal skin cancer History of carpal tunnel release History of cholecystectomy History of bladder surgery Family History Mother Hypertension Cancer Sister Cancer Father Cancer Son Cancer Social History Smoking Status: Current every day smoker tobacco type: cigarettes packs per day: 2 second hand exposure: Yes alcohol intake: never substance use type: denies use current occupational status: disabled Travel in the last 8 weeks?: None household members: none housing: jail number of children: 3 current occupational exposures/hazards: No caffeine: Yes special adam needs: No agree to transfusion: No additional social history: 1 son Have you lived/traveled outside [place] in past 30 days?: No Contact w/someone who lives/traveled outside [place] past 30 days?: No Exposure to someone with infectious disease in past 14 days?: No Do you have a fever (greater than 100.4 F or 38 C)?: No Have you tested positive for COVID-19?: No Exposed to someone with COVID-19 in past 14 days?: No Do you have a sore throat?: No Do you have a cough?: No Do you have any weakness?: Yes Do you have any diarrhea?: No Are you experiencing any unusual bleeding?: No Do you have any muscle aches/pain?: No Do you have any abdominal pain?: No Are you experiencing loss of taste or smell?: No Other Medical History Have you received the Flu Vaccine for this season: No Have you received the Pneumonia Vaccine: Yes ROS Obtained: Yes Systems reviewed as appropriate & no additional complaints except as documented Physical Exam General General appearance: alert and in no apparent distress Head Head exam: atraumatic and normocephalic Eye Eye exam: Present PERRL and EOMI ENT ENT exam: Present mucous membranes moist Neck Neck exam: Present normal inspection Chest Chest inspection: Present normal inspection and symmetric chest wall rise Respiratory Respiratory exam: Present normal lung sounds bilaterally; Absent respiratory distress, wheezes, stridor or accessory muscle use Cardiovascular Cardiovascular exam: Present regular rate and normal rhythm Abdominal Exam Abdominal exam: Present soft; Absent tenderness Extremities Exam Extremities exam: Present normal inspection Neurological Exam Neurological exam: Present alert and CN II-XII intact; Absent motor sensory deficit Psychiatric Psychiatric exam: Present normal affect Skin Skin exam: Present warm and dry Medical Decision Making Medical Records Screening: Per USPSTF and CDC recommendations, given the prevalence of disease in our region, it is our hospital?s policy to screen for HIV and viral Hepatitis for all patients aged 18 and over and those with ongoing risk factors. Mervin Inquiry Pt receiving controlled substance: No Vital Signs: 07/16/25 09:08 07/16/25 09:08 07/16/25 09:37 Temperature 99.6 F 99.6 F Temperature Source Oral Oral Pulse Rate 86 Pulse Rate [Right] 86 Respiratory Rate 20 20 Blood Pressure 113/44 L Blood Pressure [Right Arm] 113/44 L Blood Pressure Mean [Right Arm] 67 Blood Pressure Source Automatic Cuff Blood Pressure Source [Right Arm] Automatic Cuff Blood Pressure Position Supine Blood Pressure Position [Right Arm] Supine 02 Sat by Pulse Oximetry 95 95 95 Oxygen Delivery Method Nasal Cannula Nasal Cannula Nasal Cannula Oxygen Flow Rate (LPM) 2 2 2 07/16/25 09:45 Temperature Temperature Source Pulse Rate 78 Pulse Rate [Right] Respiratory Rate Blood Pressure 111/49 L Blood Pressure [Right Arm] Blood Pressure Mean [Right Arm] Blood Pressure Source Blood Pressure Source [Right Arm] Blood Pressure Position Blood Pressure Position [Right Arm] 02 Sat by Pulse Oximetry 95 Oxygen Delivery Method Nasal Cannula Oxygen Flow Rate (LPM) 2 Lab Data Lab Results 07/16/25 09:45: VBG pH 7.43 H, VBG pCO2 49.7, VBG pO2 54.3 H, VBG HCO3 32.0 H, VBG Total CO2 33.6 H, VBG O2 Saturation 83.6 H, VBG Base Excess 7.7 H, VBG Lactic Acid 1.8 07/16/25 09:48: WBC 11.3 H, RBC 3.13 L, Hgb 8.9 L, Hct 29.0 L, MCV 92.7, MCH 28.4, MCHC 30.7 L, RDW 14.6, Plt Count 140 L, MPV 11.1 H, Neut % (Auto) 82.1 H, Lymph % (Auto) 10.5, [place] % (Auto) 6.2, Eos % (Auto) 0.1, Baso % (Auto) 0.1, Neut # (Auto) 9.3 H, Lymph # (Auto) 1.2, [place] # (Auto) 0.7, Eos # (Auto) 0.0, Baso # (Auto) 0.0 07/16/25 09:48 Orders (Tests/Meds): ED MEDICATIONS Discontinued Medications Generic Name Dose Route Start Last Admin Trade Name Franciscoq PRN Reason Stop Dose Admin Doxycycline Hyclate 100 mg 07/16/25 10:37 07/16/25 10:50 Doxycycline Hycl 100 Mg Tablet PO 07/16/25 10:38 100 mg ONCE ONE Administration ORDERS Category Date Time Status CXR --portable [XR chest portable] Stat Exams 07/16/25 09:09 Completed CBC w/Auto Diff [Complete Blood Count Auto Diff] Stat Lab 07/16/25 09:48 Completed CMP [Comprehensive Metabolic Panel] Stat Lab 07/16/25 09:48 Received HIV Combo Stat Lab 07/16/25 09:48 Received Hepatitis C Ab Qual. W/ RFX Stat Lab 07/16/25 09:48 Received UA [Urinalysis and Microscopic] Stat Lab 07/16/25 09:09 Ordered VBG [Venous Blood Gas] Stat RT 07/16/25 09:45 Completed EKG Request [ECG Request] Stat Y 07/16/25 09:09 Ordered ECG Data Tracing #1: Independently inter by me rate 76, rhythm is regular, axis is normal, no ST elevation in anatomical contiguous leads, QTc 408. Persistent Q waves in the anterior leads demonstrated previously Medical Decision Narrative: In summary patient is 75-year-old female past medical history described above who presents emergency department for evaluation of encephalopathy. Patient is hemodynamically stable nontoxic-appearing upon arrival, afebrile. Patient is alert and oriented with a nonfocal neurologic exam on my exam. I suspect that given history patient became hypoxic given that she was not wearing her baseline oxygen requirement when she was outside smoking causing her to become disoriented. Patient is on her baseline oxygen requirement now. No trauma. Given this workup will be conducted with hematologic labs, chest x-ray, urinalysis screening for respiratory infection, acute metabolic derangement, urinary tract infection as those are on the differential. Noncontrasted CT scan of the head was considered but no trauma and nonfocal neurologic exam no headache, and no persistent encephalopathy will be deferred at this time. Although CMP machine is down patient does not have chest pain therefore troponin is not warranted. VBG with electrolytes glucose is 197, sodium 139, potassium 4.2, calcium 4.6, chloride 98. Given this I suspect that her CMP will similar and regardless of her creatinine is likely appropriate for outpatient management at this time. Will follow-up on CMP to make sure there is nothing critical such as very elevated uremia. CBC nonactionable she has chronic anemia. Acid-base status is compensated. Patient has no symptomatic dysuria therefore urinalysis will be deferred. Shared decision making discussion was had with patient and son at bedside both are in agreement that we will discharge given that she has a likely etiology for this given clinical history and I will follow-up on BUN and creatinine and they were agreeable to return to the ER if it is critical. Patient is appropriate for discharge at this time. Critical Care Critical Care Time Critical Care Time: No
--- NOTE | 2025-07-16 09:16 | ECG_ITS ---
APPROVED REPORT Exam: Resting ECG HR:76 bpm ECG Measurements Heart Rate 76 AXES VT 169 P 56 QRSd 82 QRS 25 QT 377 T 47 QTc 408 Conclusion SINUS RHYTHM LOW QRS VOLTAGE IN PRECORDIAL LEADS [QRS DEFLECTION < 1.0 mV IN CHEST LEADS] POSSIBLE ANTERIOR MYOCARDIAL INFARCTION , PROBABLY OLD [30 ms Q WAVE IN V3/V4, OR R < 0.2 mV IN V4] BORDERLINE ECG Electronically signed by : MARK GARCIA, 07/16/2025 16:15:54
--- NOTE | 2025-07-16 09:19 | PC.NURSE ---
xr at bedside
[2025-07-16 09:58] LABS: Hematocrit 29.0 % (37.0-47.0); Hemoglobin 8.9 g/dL (12.2-16.2); Immature Granulocytes % 1.0 %; Mean Corpuscular HGB Conc 30.7 g/dL (31.8-35.4); Mean Corpuscular Hemoglobin 28.4 pg (27.0-31.2); Mean Corpuscular Volume 92.7 fl (81-99); Nucleated Red Blood Cells % 0 %; Platelet Count 140 K/mm3 (142-424); Red Blood Count 3.13 M/mm3 (4.20-5.40); Red Cell Distribution Width-SD 49.6 fL; White Blood Count 11.3 K/mm3 (4.8-10.8)
[2025-07-16 09:59] LABS: Lactate Venous 1.8 mmol/L (0.4-2.0); VBG HCO3 32.0 mmol/L (23-30); VBG PCO2 49.7 mmol/L (35-51); VBG PH 7.43 mmol/L (7.31-7.41); VBG PO2 54.3 mmol/L (28-40)
--- NOTE | 2025-07-16 10:30 | PC.NURSE ---
Constantino Kulkarni rounded on pt to let them know that the analyzer was down and it was taking awhile for labs to come back
--- NOTE | 2025-07-16 10:42 | PC.NURSE ---
report called to zheng at [facility]. rx given verbally and nurse at [facility] will send order to pharmacy that [facility] receives meds from
[2025-07-16] MEDS: DOXYCYCLINE HYCL 100 MG TABLET PO (10:50)
--- NOTE | 2025-07-16 11:22 | PC.NURSE ---
Called EMS about this transfer
[2025-07-16 12:03] LABS: Microscopic, Urine URINE MICROSCOPIC (MICROSCOPIC)
[2025-07-16 12:12] LABS: Hepatitis C Ab Qual. W/ RFX NEGATIVE (Negative)
[2025-07-16 12:15] LABS: Alanine Aminotransferase 22 U/L (12-78); Albumin Level 3.3 g/dl (3.5-5.0); Albumin/Globulin Ratio 1.1 (1.1-1.8); Alkaline Phosphatase 175 U/L (38-126); Anion Gap 10.5 mEq/L (5-15); Aspartate Amino Transferase 42 U/L (14-36); Bilirubin,Total 0.6 mg/dl (0.2-1.3); Blood Urea Nitrogen 37 mg/dl (7-17); Calcium 9.2 mg/dl (8.4-10.2); Carbon Dioxide 36 mmol/L (22.0-30.0); Chloride 95 mmol/L (98-107); Creatinine Clearance Estimated 33 mL/min (50-200); Creatinine,Serum 1.10 mg/dl (0.52-1.04); Estimated Glomerular Filt Rate 48 ml/min (>60); GFR (African American) 58 ML/MIN (>60); Globulin 3.0 g/dL (1.3-3.2); Glucose 162 mg/dl (74-100); Potassium 4.5 mmoL/L (3.5-5.1); Sodium 137 mmol/L (136-145); Total Protein,Serum 6.3 g/dl (6.3-8.2)
[2025-07-16 12:34] LABS: Bilirubin,Urine Negative (Negative); Color,Urine YELLOW (Yellow); Glucose,Urine (UA) Negative (Negative); Ketones,Urine Negative (Negative); Leukocyte Esterase,Urine 3+ (Negative); PH,Urine 7.0 (5.0-8.5); Protein,Urine Negative (Negative); Specific Gravity, Urine 1.010 (1.005-1.030); Urobilinogen,Urine 0.2 EU/dl (0.2)
[2025-07-16 13:02] LABS: Bacteria,Urine Trace /lpf
--- NOTE | 2025-07-19 09:29 | PC.NURSE ---
Final urine culture discussed with . No change needed to her treatment.
== END 2025-07-16 13:48 ==
PROVIDERS: Emergency Provider Emergency Medicine
DX: G93.40 Encephalopathy, unspecified (principal); N39.0 Urinary tract infection, site not specified; J18.9 Pneumonia, unspecified organism; J44.0 Chronic obstructive pulmonary disease with (acute) lower respiratory infection; F17.210 Nicotine dependence, cigarettes, uncomplicated; Z99.81 Dependence on supplemental oxygen; B96.1 Klebsiella pneumoniae [K. pneumoniae] as the cause of diseases classified elsewhere
CPT/HCPCS: 71045; 80053; 81001; 82803; 85025; 86803; 87086; 87088; 87186; 87389; 93005; 99285

== ENCOUNTER 2025-08-12 14:28 | Emergency (ER) | payer MEDICARE, MEDICAID, SELFPAY ==
[2025-08-12] VITALS (8 sets, daily range): BP systolic 81–120; BP diastolic 25–45; PULSE 60–68; RESP 15–21; TEMP 36.5; O2SAT 91–99; BMI 44.8
--- NOTE | 2025-08-12 14:50 | ED_ITS ---
<Statement entered by Dayne Sheridan MD - 08/12/25 17:10> I consulted the BE[facility], and we discussed the complexity of the problems being addressed. I approved the treatment and management plan for this patient's care in the emergency department, thus performing a substantial portion of the medical decision making. Amaury Sheridan MD Discharge Plan Disposition Patient Disposition: Left Against Medical Advice Condition: Undetermined Prescriptions Prescriptions: New amoxicillin-pot clavulanate 875-125 mg tablet 1 tab PO BID 5 Days Qty: 10 0RF azithromycin [Zithromax Z-Terry] 250 mg tablet See Rx Instructions .ROUTE .COMPLEX Qty: 6 0RF Rx Instructions: For 250 mg dose pack: take 500 mg today (day 1), then 250 mg for 4 days (days 2-5) No Action albuterol sulfate 1.25 mg/3 mL solution for nebulization 1.25 mg inhalation TIDP PRN (Reason: Shortness Of Breath) acetaminophen-codeine 300-15 mg tablet 1 tab PO Q4H PRN (Reason: pain) Qty: 180 0RF sennosides [senna] 8.6 mg tablet 17.2 mg PO DAILY nitroglycerin 0.4 mg tablet, sublingual 0.4 mg sublingual Q5-15M PRN Rx Instructions: do not exceed 3 doses per episode bisacodyl 10 mg suppository 10 mg MO DAILY PRN Incruse Ellipta 62.5 mcg/actuation blister with device 1 inh inhalation DAILY venlafaxine 150 mg capsule,extended release 24hr 150 mg PO DAILY torsemide 100 mg tablet 50 mg PO DAILY sulfamethoxazole-trimethoprim 400-80 mg tablet 1 tab PO BID cephalexin 500 mg capsule 500 mg PO BID cetirizine [Zyrtec] 10 mg tablet 10 mg PO DAILY 90 Days Qty: 90 0RF gabapentin 300 mg capsule 300 mg PO TID Qty: 90 3RF ferrous sulfate 325 mg (65 mg iron) tablet 325 mg PO BID aspirin 81 mg tablet 81 mg PO DAILY clopidogrel [Plavix] 75 mg tablet 75 mg PO DAILY trazodone 50 mg tablet 50 mg PO DAILY pramipexole 0.125 mg tablet 0.125 mg PO DAILY benzonatate 100 mg capsule 100 mg PO TID PRN (Reason: cough) Qty: 60 0RF albuterol-budesonide 90-80 mcg/actuation HFA aerosol inhaler 2 inh inhalation QID PRN (Reason: wheezing) Qty: 10.7 0RF cholecalciferol (vitamin D3) 25 mcg (1,000 unit) capsule 25 mcg PO DAILY Qty: 30 0RF budesonide-formoterol [Symbicort] 160-4.5 mcg/actuation HFA aerosol inhaler 2 puff inhalation BID Qty: 10.2 2RF potassium chloride [K-Tab] 20 mEq tablet extended release 20 meq PO DAILY Qty: 30 2RF acetaminophen 500 mg tablet 500 mg PO .q8 PRN (Reason: pain) oxybutynin chloride 10 mg tablet extended release 24hr 10 mg PO DAILY lisinopril 20 mg tablet 20 mg PO DAILY pantoprazole 40 mg tablet,delayed release (DR/EC) 40 mg PO DAILY montelukast 10 mg tablet 10 mg PO PM roflumilast 500 mcg tablet 500 mcg PO DAILY insulin glargine [Lantus Solostar U-100 Insulin] 100 unit/mL (3 mL) insulin pen 22 unit SQ BID nadolol 20 mg tablet 20 mg PO BID Novolin 70-30 FlexPen U-100 100 unit/mL (70-30) insulin pen 24 unit SQ AC Referrals Follow up/Referrals: Rafael Coto MD [Primary Care Provider, Family Practice] - See instructions Activity Restrictions/Add. Instructions Additional Instructions/Restrictions: Please return to the emergency department with any worsening signs or symptoms. Please take all your antibiotics with food as prescribed. Please follow-up with your PCP in the upcoming days/weeks. Clinical Impressions Clinical Impression: Pneumonia Instructions Patient Instructions: DI for Pneumonia in Adults Print Language Print Language: [place]se Discharge ED Provider: Dayne Sheridan General Adult HPI General Chief complaint: Weakness Stated complaint: Hypotension Time Seen by Provider: 08/12/25 14:40 Mode of Arrival: EMS Source of Information: EMS Description of Symptoms (Recalled from ER Triage Doc. by RN): Patient sent from [facility] for low oxygen level and low blood pressure. Patient normally wears oxygen at 3LNC. Patient has no complaints on arrival to ER. History of Present Illness HPI narrative: 75-year-old female presents to the emergency department from [facility] with concern of low oxygen saturation and hypotension . Patient normally wears 2-3 liters nasal cannula at baseline, GCS 14 per my examination the patient at baseline patient has no acute complaints with the exception of bilateral shoulder pain and neck pain, patient states this has been going on for quite some time, she is pleasantly confused at baseline oriented to person and place disoriented to time, patient denies any fever chills does admit to cough congestion when asking how long this been going on for patient states a long time , patient denies any chest pain shortness of breath abdominal pain nausea vomiting constipation diarrhea no urinary type symptomatology, patient is a former smoker, patient admits to occasional alcohol use, denies any other illicit drug use. Other past medical history is consistent with COPD, MDD, hyperlipidemia, OAB, peripheral neuropathy, GERD, hypertension, obesity, CHF, T2DM insulin-dependent, CAD. Initial triage vitals are unremarkable, soft initial triage blood pressures but no hypotension, patient has good ox saturation on 3 L nasal cannula. Please note that above description of symptoms, in this electronic medical record under categorization of recalled from ER triage doctor by RN are reflective of an initial nursing assessment, however, is not reflective of my full history and physical exam that was personally taken and clarified. Consequentially, this preceding description of symptoms, which may include the patient's categorized chief complaint in the EMR, do not reflect my personal clinical impression, and the ultimate description of history of present illness and patient stated complaints should be deferred to this section of the note. Unless stated otherwise or congruent with this section of the note, additional signs, symptoms, or incongruence should be interpreted as inaccurate with my clinical impression. Onset (ago): unknown Related Data Home Medications ?Medication ?Instructions ?Recorded ?Confirmed albuterol sulfate 1.25 mg/3 mL 1.25 mg inhalation TIDP PRN 07/27/22 07/06/25 solution for nebulization Shortness Of Breath lisinopril 20 mg tablet 20 mg PO DAILY Hypertension 11/01/22 07/06/25 montelukast 10 mg tablet 10 mg PO PM COPD 11/01/22 oxybutynin chloride 10 mg 10 mg PO DAILY INCONTINENCE 11/01/22 07/06/25 tablet,extended release 24 hr pantoprazole 40 mg tablet,delayed 40 mg PO DAILY Reflu x/Acid reflux 11/01/22 07/06/25 release roflumilast 500 mcg tablet 500 mcg PO DAILY COPD 11/0107/06/25 aspirin 81 mg tablet 81 mg PO DAILY 05/28/2506/10 clopidogrel 75 mg tablet (Plavix) 75 mg PO DAILY 05/2807/06/25 ferrous sulfate 325 mg (65 mg 325 mg PO BID 05/28/25 0 07/06/25 iron) tablet pramipexole 0.125 mg tablet 0.125 mg PO DAILY 05/28/25 07/06/25 trazodone 50 mg tablet 50 mg PO DAILY 05/28/2506/10 acetaminophen 500 mg tablet 500 mg PO .q8 PRN pain 07/06/25 bisacodyl 10 mg rectal suppository 10 mg MO DAILY PRN 06/23/25 07/06/25 insulin NPH-regular 70-30 U-100 24 unit SQ AC Diabetes 06/23/25 07/06/25 insulin 100 unit/mL subcutaneous pen (Novolin 70-30 FlexPen U-100 Insulin) insulin glargine 100 unit/mL (3 22 unit SQ BID Diabete s 06/23/25 07/06/25 mL) subcutaneous pen (Lantus Solostar U-100 Insulin) nadolol 20 mg tablet 20 mg PO BID Hypertension 07/06/25 nitroglycerin 0.4 mg sublingual 0.4 mg sublingual Q5-1 5M PRN 06/23/25 07/06/25 tablet sennosides 8.6 mg tablet (senna) 17.2 mg PO DAILY 06/0907/06/25 torsemide 100 mg tablet 50 mg PO DAILY 06/23/2506/10 umeclidinium 62.5 mcg/actuation 1 inh inhalation DAILY 06/23/25 07/06/25 blister powder for inhalation (Incruse Ellipta) venlafaxine 150 mg 150 mg PO DAILY 06/23/25 capsule,extended release 24 hr cephalexin 500 mg capsule 500 mg PO BID 08/05/2508/05 sulfamethoxazole 400 1 tab PO BID 08/05/25 mg-trimethoprim 80 mg tablet Previous Rx's ?Medication ?Instructions ?Recorded cetirizine 10 mg tablet (Zyrtec) 10 mg PO DAILY Allerg y symptoms 90 08/08/22 days #90 tabs gabapentin 300 mg capsule 300 mg PO TID #90 caps 05/27 albuterol 90 mcg-budesonide 80 2 inh inhalation QID MO N wheezing 06/10/25 mcg/actuation HFA aerosol inhaler #10.7 grams benzonatate 100 mg capsule 100 mg PO TID PRN cough #60 caps 06/10/25 budesonide-formoterol HFA 160 2 puff inhalation BID #1 0.2 grams 06/10/25 mcg-4.5 mcg/actuation aerosol inhaler (Symbicort) cholecalciferol (vitamin D3) 25 25 mcg PO DAILY #30 ca ps 06/10/25 mcg (1,000 unit) capsule potassium chloride 20 mEq 20 meq PO DAILY #30 tabs 12/03 tablet,extended release (K-Tab) acetaminophen 300 mg-codeine 15 mg 1 tab PO Q4H PRN pa in #180 tabs 06/19/25 tablet amoxicillin 875 mg-potassium 1 tab PO BID 5 days #10 t abs 08/12/25 clavulanate 125 mg tablet azithromycin 250 mg tablet See Rx Instructions PO .COM PLEX #6 08/12/25 (Zithromax Z-Terry) tabs Allergies Allergy/AdvReac Type Severity Reaction Status Date / Time acetaminophen (From Tylox) Allergy Verified 06/23/25 11:27 metformin Allergy Verified 06/23/25 11:27 Penicillins Allergy Verified 06/23/25 11:27 sitagliptin (From Januvia) Allergy Verified 06/23/25 11:27 oxycodone (From PERCOCET) AdvReac Unknown Verified 06/23/25 11:27 PFS PFS Disclaimer: The information contained in this section may have been updated after the patient was seen, as this information can be updated by other users. Medical History (Updated 08/12/25 @ 16:34 by VANI Au) COPD (chronic obstructive pulmonary disease) Tobacco abuse Chronic kidney disease Pneumonia Major depression, recurrent Blastomycosis Peripheral neuropathy Overactive bladder GERD (gastroesophageal reflux disease) Vitamin D deficiency Congestive heart failure Portal hypertension Impaired mobility Acute exacerbation of chronic obstructive airways disease COPD exacerbation UTI (urinary tract infection) Body mass index (BMI) greater than 40 Muscle weakness (generalized) Anemia, unspecified Other low back pain Sleep apnea History of COVID-19 Chronic cough Asthma History of diverticulitis History of cataract Allergies Hyperlipidemia Hypertension Edema Skin cancer Breast cancer Metatarsalgia of both feet Onychomycosis of toenail Type 2 diabetes mellitus, with long-term current use of insulin Diabetic foot Diastolic dysfunction CAD (coronary artery disease) History of noncompliance with medical treatment Intermittent palpitations Surgical History H/O bilateral mastectomy (~02/2012) H/O: hysterectomy History of dental surgery History of surgical removal of lesion History of carpal tunnel release History of cholecystectomy History of bladder surgery Family History Mother Hypertension Cancer Sister Cancer Father Cancer Son Cancer Social History Smoking Status: Current every day smoker tobacco type: cigarettes packs per day: 2 second hand exposure: Yes alcohol intake: never substance use type: denies use current occupational status: disabled Travel in the last 8 weeks?: None household members: none housing: [facility] number of children: 3 current occupational exposures/hazards: No caffeine: Yes special adam needs: No agree to transfusion: No additional social history: 1 son Have you lived/traveled outside [place] in past 30 days?: No Contact w/someone who lives/traveled outside US past 30 days?: No Exposure to someone with infectious disease in past 14 days?: No Do you have a fever (greater than 100.4 F or 38 C)?: No Have you tested positive for COVID-19?: No Exposed to someone with COVID-19 in past 14 days?: No Do you have a sore throat?: No Do you have a cough?: No Do you have any weakness?: No Do you have any diarrhea?: No Are you experiencing any unusual bleeding?: No Do you have any muscle aches/pain?: No Do you have any abdominal pain?: No Are you experiencing loss of taste or smell?: No Other Medical History Have you received the Flu Vaccine for this season: No Have you received the Pneumonia Vaccine: Yes ROS Obtained: Yes All systems reviewed & no additional complaints except as documented Physical Exam General General appearance: alert and in no apparent distress Comment: Drowsy but arousable Head Head exam: atraumatic and normocephalic Eye Eye exam: Present PERRL and EOMI ENT ENT exam: Present mucous membranes moist Neck Neck exam: Present normal inspection Chest Chest inspection: Present normal inspection and symmetric chest wall rise Respiratory Respiratory exam: Present normal lung sounds bilaterally; Absent respiratory distress, wheezes or stridor Cardiovascular Cardiovascular exam: Present regular rate and normal rhythm Abdominal Exam Abdominal exam: Present soft; Absent tenderness, guarding, rebound or rigidity Extremities Exam Extremities exam: Present normal inspection, full ROM and other (Moves extremities to command, neurovascular intact, no obvious fractures or deformities noted) Neurological Exam Neurological exam: Present alert and other (Alert oriented x 2, oriented to person and place, disoriented to time, patient moves extremities to command no gross focal neurological or sensation deficit); Absent oriented X3 Psychiatric Psychiatric exam: Present normal affect Skin Skin exam: Present warm, dry and other (There is 1+ pitting edema bilaterally, chronic venous stasis dermatitis noted bilaterally to the patient's bilateral lower extremity) Medical Decision Making Medical Records Medical records reviewed: Yes I reviewed the patient's medical records. Screening: Per USPSTF and CDC recommendations, given the prevalence of disease in our region, it is our hospital?s policy to screen for HIV and viral Hepatitis for all patients aged 18 and over and those with ongoing risk factors. Mervin Inquiry Pt receiving controlled substance: No Mervin was queried for this patient: No Vital Signs: 08/12/25 14:43 08/12/25 14:48 08/12/25 15:01 Temperature 97.7 F Temperature Source Oral Pulse Rate 61 64 Pulse Rate [Right Brachial] 61 Respiratory Rate 16 19 18 Blood Pressure 90/45 L 120/34 L Blood Pressure [Right Arm] 96/27 L Blood Pressure Mean 50 54 Blood Pressure Mean [Right Arm] 50 Blood Pressure Source [Right Arm] Automatic Cuff Blood Pressure Position [Right Arm] Supine 02 Sat by Pulse Oximetry 96 99 92 L Oxygen Delivery Method Nasal Cannula Oxygen Flow Rate (LPM) 3 08/12/25 15:44 08/12/25 16:04 Temperature Temperature Source Pulse Rate 68 60 Pulse Rate [Right Brachial] Respiratory Rate 15 21 Blood Pressure 81/27 L 96/34 L Blood Pressure [Right Arm] Blood Pressure Mean 34 52 Blood Pressure Mean [Right Arm] Blood Pressure Source [Right Arm] Blood Pressure Position [Right Arm] 02 Sat by Pulse Oximetry 91 L 94 L Oxygen Delivery Method Oxygen Flow Rate (LPM) Lab Data Lab results reviewed: Yes I reviewed the patient's lab results. Orders (Tests/Meds): ORDERS Category Date Time Status CT head/brain wo con Stat Cat Scan 08/12/25 14:55 Completed XR chest portable Stat Exams 08/12/25 14:54 Completed Complete Blood Count Auto Diff Stat Lab 08/12/25 14:54 Ordered Comprehensive Metabolic Panel Stat Lab 08/12/25 14:54 Ordered Lactic Acid Stat Lab 08/12/25 14:54 Ordered Lipase Stat Lab 08/12/25 14:54 Ordered Magnesium Stat Lab 08/12/25 14:54 Ordered NT Pro Brain Natriuretic Pep. Stat Lab 08/12/25 14:55 Ordered Troponin I Q3H Lab 08/12/25 18:00 Ordered Troponin I Q3H Lab 08/12/25 21:00 Ordered Troponin I Stat Lab 08/12/25 14:54 Ordered Urinalysis and Microscopic Stat Lab 08/12/25 14:55 Ordered Medical Decision Narrative: 75-year-old female [facility] emergency [facility] via [facility] via EMS, for concern of abnormal vitals, differential diagnose include but not limited to cardiac arrhythmia, electrolyte disturbance, hypovolemia, failure to thrive, pneumonia, acute kidney injury, CHF exacerbation, encephalopathy, metabolic supply, uremic cephalopathy among others. I discussed this patient's case with the attending physician Dr. Sheridan Will obtain basic laboratory studies, EKG, CT head without contrast, CXR, lactic acid level lipase level magnesium level proBNP troponin, UA. I reviewed the patient's chest x-ray along with corresponding radiologic report, new bilateral perihilar opacity and worsening left basilar opacity could represent pneumonia small left pleural effusion. I reviewed the patient's CT head without contrast on the corresponding radiologic report, no acute intracranial abnormality. I was notified by nursing staff that the patient is adamantly refusing any further workup, denying intravenous access and laboratory studies, denying providing a urinary sample, I along with the attending physician presented to the bedside and had a long conversation with the patient and now patient's sister (Isabelle Valdez) at the bedside and tells me she believes that the patient is at her neurological baseline, does believe that she has been more lethargic and her color has been off . For the last several days. The patient and family member would like the patient to leave AGAINST MEDICAL ADVICE. I discussed the results of the chest x-ray with the patient and family bedside, and that 30-day mortality with pneumonia based on her clinical status at this time is quite high based on curb65 score and PSI score, also discussed that we do not have the full picture as patient is refusing further laboratory workup and urine sample. Patient and family member, at the bedside as well as DURABLE POWER OF TRACER [employer]LET CHARGING MACHINE OPERATOR Rafael Fernandez over the telephone are in agreement with the current plan to leave AGAINST MEDICAL ADVICE. Patient has documented DNR. Once again all risks including were discussed with patient and family ember over the phone and family who are at the bedside all parties are in agreement and verbalized conf irmation back to me and attending physician. Patient will be discharged with azithromycin 500 mg on and 250 mg p.o., Augmentin 875 mg p.o. twice daily for 5 days. Recommend increasing the patient's strict ED return precautions given. Once again patient family in agreement with the current plan to leave AGAINST MEDICAL ADVICE. Critical Care Critical Care Time Critical Care Time: No
--- OUTSIDE RECORDS SUMMARY | 2025-08-12 14:53 | XMS_ITS | Clinical Summary ---
[facility] Address [address] [place] [address] Care Team Providers Care Audio Visual Director Name Role Phone Provider, No Known Primary [...] - Adults (1 - 1-dose 75+ series) INFLUENZA VACCINE 05/09/2025 COVID-19 Vaccine (1 - 2023- season) 2025 Insurance MEDICAID [place] [id number] Care Teams Audio Visual Director Relationship Specialty Start Date End Date Provider, No Known [facility] [address] PCP - General 12/10/15
--- OUTSIDE RECORDS SUMMARY | 2025-08-12 14:53 | XMS_ITS | Data Portability ---
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 Medications, charts and records reviewed in full today. - Blood pressure 106/70, heart rate 91, weight 240.6 lb. O2 95%. - LAST ECHO: 01/2023 revealed an LVEF of 70% to 75% with no MR or AI. LAST ISCHEMIC EVAL: 11/2013 revealed inferior attenuation within normal LVEF of 62%. LAST HEART CATH: 12/2022 revealed mild diffuse coronary artery disease, normal LV systolic function in LVEDP. Normal abdominal aorta, normal solitary bilateral renal arteries, and normal peripheral vasculature with brisk three vessel runoff to the foot bilaterally. LAST LDL: None on file. LAST CNI: 11/2018 revealed less than 20% stenosis of the right ICA and 20% to 49% stenosis left ICA. - Plan: Echocardiogram. Referral to GI for IAVN. Azithromycin. Prednisone. Follow up in 4 to 6 weeks. - -Continue other current medications. -Continue aggressive risk factor modification. -Recommend LDL less than 70. -Encouraged regular exercise and activity. - This note was dictated using Ifinity software. If something is unclear, or does not make sense, please do not hesitate to contact our office at [phone] for clarification. Not available 09/16/2024 15:29:11 10/28/2024 10/28/2024 Patient Educatio n was printed, I have reviewed the Past Medical, Family, and Social Histories along with ROS and all orders in today's record, and have noted any changes. Medications, charts and records reviewed in full today. - blood pressure 114/62, heart rate 76, weight 245 lb. This is an increase of 5 lb since last visit. Oxygen saturation 95% on O2 via nasal cannula. - LAST ECHO: 09/2024 revealed a normal LVEF of 65% to 70% with mild LVH, and Doppler evidence for impaired relaxation left ventricle. RVSP 50 to 55 mm Hg. Mild pulmonary hypertension. Mild tricuspid insufficiency. LAST ISCHEMIC EVAL: 11/2013 revealed inferior attenuation within normal LVEF of 62%. LAST HEART CATH: 12/2022 revealed mild diffuse coronary artery disease, normal LV systolic function in LVEDP. Normal abdominal aorta, normal solitary bilateral renal arteries, and normal peripheral vasculature with brisk three vessel runoff to the foot bilaterally. LAST LDL: None on file. LAST CNI: 11/2018 revealed less than 20% stenosis of the right ICA and 20% to 49% stenosis left ICA. - Plan: Hospitalize at [facility]. Diuresis. Follow laboratory studies. Plan for left and right heart catheterization tomorrow. May need treatment for possible left lower leg cellulitis. Follow-up after discharge. - -Continue other current medications. -Continue aggressive risk factor modification. -Recommend LDL less than 70. -Encouraged regular exercise and activity. - This note was dictated using Ifinity software. If something is unclear, or does not make sense, please do not hesitate to contact our office at [phone] for clarification. Not available 10/28/2024 15:17:22 11/12/2024 11/12/2024 Reviewed cath report with patient. Right groin continues to heal without complications. There was no diease present that warranted intervention. Patient Education was printed, I have reviewed the Past Medical, Family, and Social Histories along with ROS and all orders in today's record, and have noted any changes. Medications, charts and records reviewed in full today. - Weight is stable. ECHO-09/2024 revealed a normal LVEF of 65% to 70% with mild LVH, and Doppler evidence for impaired relaxation left ventricle. RVSP 50 to 55 mm Hg. Mild pulmonary hypertension. Mild tricuspid insufficiency. LAST ISCHEMIC EVAL: 11/2013 revealed inferior attenuation within normal LVEF of 62%. LAST HEART CATH: 12/2022 revealed mild diffuse coronary artery disease, normal LV systolic function in LVEDP. Normal abdominal aorta, normal solitary bilateral renal arteries, and normal peripheral vasculature with brisk three vessel runoff to the foot bilaterally. LAST LDL: None on file. LAST CNI: 11/2018 revealed less than 20% stenosis of the right ICA and 20% to 49% stenosis left ICA. - Plan: Return to Cardiology Clinic 3 months -Continue current medications. -Continue aggressive risk factor modification. -Recommend LDL less than 70. -Encouraged regular exercise and activity. -Fluid restrictions 1500-1800ml -Continue attending PT/OT at [facility]. - This note was dictated using Ifinity software. If something is unclear, or does not make sense, please do not hesitate to contact our office at [phone] for clarification. [email or web address] Not available 11/12/2024 16:03:34 03/13/2025 03/13/2025 Patient Educatio n was printed, I have reviewed the Past Medical, Family, and Social Histories along with ROS and all orders in today's record, and have noted any changes. Medications, charts and records reviewed in full today. - CATH: 11/2024-medical management ECHO-09/2024 revealed a normal LVEF of 65% to 70% with mild LVH, and Doppler evidence for impaired relaxation left ventricle. RVSP 50 to 55 mm Hg. Mild pulmonary hypertension. Mild tricuspid insufficiency. LAST ISCHEMIC EVAL: 11/2013 revealed inferior attenuation within normal LVEF of 62%. LAST HEART CATH: 12/2022 revealed mild diffuse coronary artery disease, normal LV systolic function in LVEDP. Normal abdominal aorta, normal solitary bilateral renal arteries, and normal peripheral vasculature with brisk three vessel runoff to the foot bilaterally. LAST LDL: None on file. LAST CNI: 11/2018 revealed less than 20% stenosis of the right ICA and 20% to 49% stenosis left ICA. - Plan: Return to Cardiology Clinic 6 months Consider Echo at next visit if become symptomatic -Continue current medications. -Continue aggressive risk factor modification. -Recommend LDL less than 70. -Encouraged regular exercise and activity. -Fluid restrictions 1500-1800ml -Continue attending PT/OT at [facility]. - This note was dictated using Ifinity software. If something is unclear, or does not make sense, please do not hesitate to contact our office at [phone] for clarification. [email or web address] Not available 03/13/2025 14:23:01 Plan of Treatment Reminders Order Date Submit Date Provider Last Modified By Organization Details Last Modified Time Details Appointments OV EST 30 2024 01:30P Maxwell WARD NP Not available Not available Not available Lab None recorded. Referral gastroent erologist referral 2023 024 EDVIN [facility], [address] [place] [address] , [address], [place], [address], 10/16/2024 13:46:28 Procedures None recorded. Surgeries None recorded. Imaging electroca rdiogram 2024 025 [facility], [address] [place] [address] [address], [place], [address], 03/13/2025 14:23:29 electroca rdiogram 2023 024 [email or web address] [facility], [address] [place] [address] [address], [place], [address], 09/16/2024 17:23:50 US, echocardi ogram, transthor acic, complete, w/ color flow 2023 024 [email or web address] [place] (Centralized Scheduling), [address] [place] [address] , [place], [address], 09/30/2024 07:34:21 Medication Orders prednison e 20 mg tablet 2023 024 EDVIN [facility], [address], [address], [place], [address], 09/16/2024 18:17:19 azithromy sandip 250 mg tablet 2023 025 EDVIN [facility], [address], [address], [place], [address], 10/28/2024 14:18:36 Patient TargetsNo targets recorded. Patient InstructionsNo instructions recorded. 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 Referring Physician: David Booker, Cardiology, Encounter Date: 09/16/2024 Results Created Date Observation Date Name Description Value Unit Range Abnormal Flag Note LastModifiedBy Organization Detail LastModifiedTime 09/08/2009/08/2023 [facility] POINT OF CARE note See Note Order ing Provi tito: Rosalia Fortune MD Not Available [address] , [place], [address], 09/08/2023 07:14:33 09/08/20 23 09/08/2023 [facility] POINT OF CARE glucose point of care 216 mg/dL 70-99 high Not Available [address] , [place], [address], 09/08/2023 07:14:33 09/08/20 23 09/08/2023 GLUCO SE POINT OF CARE performing lab see note [facility] - [facility] [address] [facility] [address] Not Available [address] , [place], [address], 09/08/2023 07:14:33 08/29/20 23 XR, hand No observ ation record ed. EDVIN Carlos [address] , [place], [address], 08/29/2023 15:06:17 09/16/20 24 elect rocar diogr am No observ ation record ed. EDVIN Carlos [address] [facility], [place], [address], 09/16/2024 14:56:41 09/17/20 24 09/17/2024 elect jen junior am No observ ation record ed. [email or web address] Not Available 2023 14:00:35 09/30/20 24 09/30/2024 - ECHO w/spe c/col or flow [facility] Name: NAYKathrine CHRIS OBANDO [facility] [employer] Phys: Jessica COLE, Robert Abebe [facility] [address] : 1949 Age: 74 Sex: F Acct: [id number] Loc: [facility] PHONE #: [phone] Exam Date: 2023 Status : DEP CLI FAX #: [phone] Rad# [id number] Unit# [id number] Admit Date: 2023 EXAMS: CPT CODE: [id number] ECHO W/SPEC /COLOR FLOW 33416 Reason for study: Dyspne a Left ventri cular diasto le: 5.5 Left ventri cular systol e: 3.4 Septal wall thickn ess: 1.2 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 Normal left ventri cular chambe r size with normal left ventri cular systol ic functi on. Estima fede ejecti on fracti on is 65-70% . There is mild concen tric hypert rophy of the left ventri argentina. There is Dopple r eviden ce for impair ed relaxa tion of the left ventri argentina 2. No segmen kevin wall motion abnorm alitie s 3. Normal left atrial and right atrial size 4. Normal right ventri cular size and functi on 5. Mild mitral annula r calcif icatio n with normal mitral valve leafle t mobili ty and functi on. There is no mitral insuff icienc y 6. Mild calcif icatio n and thicke ellie of the aortic 5 with normal aortic 5 leafle t mobili ty and functi on. There is no aortic insuff icienc y 7. No perica rdial effusi on 8. Normal aortic root 9. Normal tricus pid valve, with mild tricus pid insuff icienc y. Tricus pid regurg itant jet veloci ty is 3.28 m/s implyi ng a right ventri cular systol ic pressu re of approx imatel y 50-55 mmHg. This signif ies mild pulmon weston hypert ension Electr onical ly Signed by ROBERT VILLAREAL MD on 2023 at 1520 Report ed and signed by: ROBERT VILLAREAL MD PAGE 1 Signed Report (SUMIT [place]) [facility] l Name: Kathrine FERNANDEZ [facility] [employer] Phys: Jessica COLE, Robert Abebe [facility] [address] : 1949 Age: 74 Sex: F Acct: [id number] Loc: [facility] PHONE #: Exam Date: 2023 Status : DEP CLI FAX #: Rad# [id number] Unit# [id number] Admit Date: 2023 EXAMS: CPT CODE: [id number] ECHO W/SPEC /COLOR FLOW 25019 CC: Esetban Jonas MD; Robert Villareal MD; Jean Paul robles APRN Dictat ed Date/T john: 2023 (1520) Techno logist : URIEL YI TER Transc ribed Date/T john: 2023 (1520) Transc riptio nist: DR.LOH VANESSA Olivas onic Signat ure Date/T john: 2023 (1520) Printe d Date/T john: 2023 (1522) BATCH NO: N/A PAGE 2 Signed Report CC'ed Logic: Orderi ng Provid er: JESSICA JONES Attend ing Provid er: ZOË CAMARGO Referr ing Provid er: ZOË CAMARGO Consul ting Provid er: TAI WHALEY [email or web address] [facility] [address] , [place], [address], 09/30/2024 18:00:47 11/28/19 elect rocar diogr am inter preta tion* No observ ation record ed. [email or web address] Not Available 2024 12:53:47 03/13/20 elect rocar diogr am No observ ation record ed. EDVIN Mv [address], [place], [address], 03/13/2025 13:47:33 03/13/20 25 03/13/2025 elect rocar diogr am No observ ation record ed. [email or web address] Not Available 2024 13:57:36 Result Notes None recorded. Problems Name Problem SNOMED Code Status Onset Date Resolution Date Notes Provider Name and Address Organization Details Recorded Time Essential hypertension 68190572 Active 2022 DAVID BOOKER NP, S [address] [place] [address],[address], [address], [place] - [facility] - [place] & [place] 3 11:06:34 Hyperlipidemia 00769762 Active 2022 DAVID BOOKER NP, [address], [address], [place] - [facility] - [place] & [place] 3 11:06:35 Type 2 diabetes mellitus without complication 454172140 Active 2022 DAVID BOOKER NP, [address], [address], [place] - [facility] - [place] & [place] 3 11:06:36 Atherosclerosi s of arteries of the extremities 47235331 Active 2022 DAVID BOOKER NP, [address], [place], [address], [place] - [facility] - [place] & [place] 3 11:06:40 Occult blood detected in feces 78775327 Active 2022 Osito Mensah MD [address] [place] [address],[address], [place], [address], [facility] & [place] 3 10:34:33 Anemia 515075172 Active 2022 Osito Mensah MD [address] [place] [address],[address], [place], [address], [facility] & [place] 3 10:34:40 Problem Notes Documentation Provider Name and Address Organization Details Recorded Time [place] History Physical - Adult REPORT #: [id number] REPORT STATUS: Signed DATE: 10/28/24 TIME: 1619 PATIENT: AMBAR FERNANDEZ UNIT #: [id number] ROOM/BED: [address] AGE: 74 SEX: F ATTEND: Yazmin COLE,Alexis Fletcher ADM AUTHOR: DO CANDACE MARSHALL * ALL edits or amendments must be made on the electronic/computer document * History of Present Illness Date of Service: 10/28/24 Chief complaint: Shortness of Breath HPI: Patient is a 74-year-old female with past medical history COPD on 2 L home O2, CAD, diastolic CHF, HTN/HLD, CKD 3, T2DM, Tobacco use, BUDDY nonadherent to CPAP, obesity >35+ BMI, RLS, chronic anemia who presents from outpatient cardiology concerns shortness of breath. She notes that she is felt this way for several months but that is progressively worsening. She has been having worsening orthopnea and paroxysmal nocturnal dyspnea. She denies chest pain, nausea, vomiting, diarrhea, constipation, vision changes, dizziness, diaphoresis. Decision was made with the product engineering manager to admit to hospital for diuresis for acute heart failure in preparation for right and left heart catheterization. During physical exam, patient was noted to be layered several blankets and states that she is still cold. When trying to evaluate her lower extremities, it was noted that she has significant bilateral lower extremity edema along with cutaneous blisters filled with serous fluid and active weeping worse on left. She notes that while at the long term a few days prior to arrival, long term staff accidentally spilled hot soup on her legs. She was started on an antibiotic by her PCP today but has yet to start it. We will [facility] [place] and management. Most recent echocardiogram 09/23/2024 Reason for study: Dyspnea Left ventricular diastole: 5.5 Left ventricular systole: 3.4 Septal wall thickness: 1.2 Posterior wall thickness: 1.1 Right ventricular diastole: 1.9 Left Atrium: 3.0 Aortic root: 2.9 TR velocity: 3.28 m/s Impression: 1. Normal left ventricular chamber size with normal left ventricular systolic function. Estimated ejection fraction is 65-70%. There is mild concentric hypertrophy of the left ventricle. There is Doppler evidence for impaired relaxation of the left ventricle 2. No segmental wall motion abnormalities 3. Normal left atrial and right atrial size 4. Normal right ventricular size and function 5. Mild mitral annular calcification with normal mitral valve leaflet mobility and function. There is no mitral insufficiency 6. Mild calcification and thickening of the aortic 5 with normal aortic 5 leaflet mobility and function. There is no aortic insufficiency 7. No pericardial effusion 8. Normal aortic root 9. Normal tricuspid valve, with mild tricuspid insufficiency. Tricuspid regurgitant jet velocity is 3.28 m/s implying a right ventricular systolic pressure of approximately 50-55 mmHg. This signifies mild pulmonary hypertension at 1520 Reported and Signed by: ROBERT VILLAREAL MD Medications: Home Medications: Medication Dose/Rte/Freq Days Qty Entered Last Max Daily Dose Reviewed ROFLUMILAST (DALIRESP) 500 MCG PO DAILY 01/05/23 Strength: 500 MCG TABLET 1125 OXYBUTYNIN CHLORIDE 10 MG PO DAILY 01/05/23 (DITROPAN XL) 1128 Strength: 10 MG TABLET Lisinopril (lisinopriL) 20 MG PO DAILY 01/05/23 Strength: 20 MG TABLET 1129 FLUTICASONE PROPIONATE 1 PUFFS IH BID 01/05/23 (FLOVENT 50 MCG DISKUS 1132 ) Strength: 1 EACH INHALER Cetirizine HCl 10 MG PO DAILY 01/05/23 Strength: 10 MG TABLET 1132 Cilostazol 100 MG PO BID 01/05/23 Strength: 100 MG TABLET 1142 ASPIRIN (ASPIRIN EC) 81 MG PO DAILY 01/05/23 Strength: 81 MG TABLET 1146 POTASSIUM CHLORIDE 20 MEQ PO DAILY 01/05/23 (K-DUR) 1124 Strength: 10 MEQ TAB NADOLOL (CORGARD) 20 MG PO BID 01/05/23 Strength: 20 MG TAB 1125 MONTELUKAST (SINGULAIR) 10 MG PO HS 01/05/23 Strength: 10 MG TABLET 1125 VENLAFAXINE HCL 75 MG PO DAILY 01/05/23 (EFFEXOR) 1133 Strength: 75 MG TABLET Acetaminophen 500 MG PO 01/05/23 Strength: 500 MG TAB Q8HP PRN PAIN 1133 HUM INSULIN NPH/REG 12 UNITS SUBQ 01/05/23 INSULIN HM ACBKDN 1134 (NOVOLIN 70-30) Strength: 100 UNIT/1 ML VIAL FLUTICASONE/SALMETEROL 1 PUFFS IH BID 01/05/23 (ADVAIR HFA 230-21 MCG) 1135 Strength: 1 EACH INHALER GABAPENTIN (NEURONTIN) 300 MG PO TID 01/05/23 Strength: 300 MG CAPSULE 1141 FERROUS SULFATE 325 MG PO BID 01/05/23 (FEOSOL) 1145 Strength: 325 MG (65 MG IRON) TABLET BENZONATATE 100 MG PO 09/04/23 Strength: 100 MG CAPSULE TID PRN PRN COUGH 1115 [BIOFREEZE GEL 4%] 09/04/23 Strength: 1116 Bisacodyl (Gentle Laxative) 1 TAB RC 09/04/23 Strength: 10 MG SUPP.RECT DAILY PRN 1117 CONSTIPATION PANTOPRAZOLE SOD 40 MG PO DAILY 09/04/23 SESQUIHYDRATE 1122 (PROTONIX) Strength: 40 MG TABLET Sennosides (Senna) 8.6 MG PO 09/04/23 Strength: 8.6 MG TABLET DAILY PRN PRN 1125 CONSTIPATION TIOTROPIUM BROMIDE 1 CAP IH DAILY 09/04/23 (SPIRIVA INHALER 18MCG) 1126 Strength: 1 EACH INHALER TORSEMIDE (DEMADEX) 50 MG PO DAILY 09/04/23 Strength: 100 MG TAB 1127 Cholecalciferol (Vitamin D3) 25 MCG PO DAILY 09/04/23 (Vitamin D3) 1130 Strength: 25 MCG (1,000 UNIT) TABLET PRAMIPEXOLE DI-HCL 0.125 MG PO DAILY 08/30/24 (MIRAPEX) 0044 Strength: 0.125 MG TABLET CALCIUM POLYCARBOPHIL 625 MG PO DAILY 08/30/24 (FIBERCON) 0045 Strength: 625 MG TAB Insulin 20 UNITS SQ BID 08/30/24 Glargine,Hum.rec.anlog 0046 (Lantus Solostar) Strength: 100 UNIT/ML (3 ML) INSULN.PEN INSULN ASP PRT/INSULIN 22 UNITS SUBQ 08/30/24 ASPART WITH MEALS 0047 (NovoLOG MIX 70-30 FLEXPEN SYRN) Strength: 100 UNIT/ML (70-30) INSULN.PEN Insulin Aspart 08/30/24 (Novolog Flexpen) 0048 Strength: 100 UNITS/ML INSULN.PEN HYDROCODONE/ACETAMINOPHEN 1 TAB PO 6 09/08/23 (Hydrocodone-Acetamin Q8HP PRN PAIN 0721 5-325 MG) Strength: 1 EACH TABLET AZITHROMYCIN 250 MG PO 3 08/30/24 (ZITHROMAX) DAILY@1000 0947 Strength: 250 MG TABLET Current Hospital Medications: Sig/Jeffy Start time Last Medication Dose Route Stop Time Status Admin Ipratropium [place] 0.5 MG RTQID 10/29 2200 AC IH Aspirin 81 MG DAILY 10/29 0900 AC PO Cetirizine HCl 10 MG DAILY 10/29 0900 AC PO Lisinopril 20 MG DAILY 10/29 0900 AC PO Pramipexole 0.125 MG DAILY 10/29 0900 AC Dihydrochloride PO Venlafaxine HCl 75 MG D 10/29 0900 AC PO Pantoprazole Sodium 40 MG DAILY@0800 10/29 0800 AC Sesquihydrate PO Budesonide 0.5 MG RTBID 10/29 0400 AC IH Formoterol Fumarate 20 MCG RTBID 10/29 0400 AC IH Cilostazol 100 MG BID 10/28 2100 AC PO Furosemide 80 MG BID 10/28 2100 CKD IV Gabapentin 300 MG TID 10/28 2100 AC PO Insulin Human Lispro 0 HS 10/28 2100 AC SUBQ Montelukast Sodium 10 MG HS 10/28 2100 AC PO Nadolol 20 MG BID 10/28 2100 AC PO Insulin Human Lispro 0 TIDWM 10/28 1730 AC SUBQ Clindamycin/Benzoyl 300 MG Q8H6 10/28 1700 AC Peroxide PO 11/04 1659 Hydrocodone Bitart/ 1 EACH Q8HP PRN 10/28 1700 AC Acetaminophen PO Acetaminophen 650 MG Q6HP PRN 10/28 1530 AC PO Al Hydrox/Mg Hydrox/ 30 ML Q4HP PRN 10/28 1530 AC Simethicone PO Docusate Sodium 100 MG BIDP PRN 10/28 1530 AC PO Magnesium Hydroxide 30 ML DP PRN 10/28 1530 AC PO Ondansetron HCl 4 MG Q8HP PRN 10/28 1530 AC IV Sodium Chloride 10 ML PRN PRN 10/28 1530 AC IV Allergies: Coded Allergies: Penicillins (Severe, THROAT SWELLING 01/04/23) aspirin (Severe, CANNOT TAKE PER KIDNEY SPECIALIST 09/04/23) metformin (Severe, DIARRHEA 01/04/23) oxycodone (Severe, RASH AROUND INJECTION SITE 01/04/23) INGREDIENT Allergy: OXYCODONE sitagliptin (From THUBIT) (Severe, UNKNOWN 01/04/23) walnut (Severe, . 09/04/23) Problem List Problem List 1. CHF exacerbation 2. Dyspnea Past Medical/Social History Past medical history: Reports: CHF ( diastolic), CKD (Stage III), COPD, coronary artery disease ( no stents), diabetes mellitus ( type 2), GERD, hyperlipidemia, hypertension. Past surgical history: Reports: appendectomy, cholecystectomy, hernia. Additional surgical history: Bilateral mastectomy Additional family history: Family history of hypertension. Social history: Reports: lives in Assisted, no alcohol use, smoker (1/2 PPD). Additional social history: Can normally do basic ADLs without limitations. Review of Systems Constitutional: Denies: chills, fatigue, fever, generalized weakness, lethargy, malaise, recent wt loss. Skin: Reports: rash (Blistering BLE), swelling. Denies: bruising, contusion, diaphoresis, ecchymosis, itching. Allergy/Immun: Denies: allergic reaction, hives, itching, rhinorrhea. Eyes: Denies: visual loss/blurred, diplopia, photophobia, swelling. ENT: Denies: nasal congestion, sore throat. Respiratory: Reports: GAUTHIER (dyspnea on exertion), non productive cough, parox nocturnal dyspnea, SOB, wheezing. Denies: hemoptysis, pleuritic pain, pneumonia, productive cough (sputum). Cardiovascular: Reports: GAUTHIER (dyspnea on exertion), edema, orthopnea, parox nocturnal dyspnea. Denies: chest pain, palpitations. GI: Denies: abdominal pain, constipation, diarrhea, GERD, nausea, vomiting. : Denies: dysuria, flank pain, frequency. Musculoskeletal: Reports: extremity pain (BLE), extremity swelling. Denies: lumbar pain, neck pain, thoracic pain. Heme: Denies: bleeding, bruising. Endocrine: Denies: weight gain, weight loss. Neuro: Denies: change in LOC, dizziness, focal weakness, headache, lightheaded, numbness, syncope, weakness. Psych: Denies: anxiety, change in mental status, confusion, depression, insomnia. Physical Exam VS/I O Temperature 97.7 Temperature source axillary Pulse rate 72 Respiratory rate 16 Respiratory pattern regular Blood pressure 129/61 Blood pressure sores monitor Bedside pulse oximetry 98 Oxygen delivery method room air General appearance: alert, awake, no acute distress, conversant, face symmetrical, MS normal, oriented, obese (morbidly) Head/Eyes: atraumatic, clear cornea, EOMI, normocephalic, normal conjunctiva/ sclera ENT: normal nose, normal pharynx, normal sinus, moist mucosal membranes Neck: full range of motion, non-tender, no bruit/NL carotids, no lymphadenopathy Cardiovascular: normal capillary refill, regular rate rhythm, normal heart sounds, no gallop, no murmur Respiratory: no distress, on oxygen (2L NC), decreased breath sounds, rales ( bilaterally), rhonchi (bilaterally) Abdomen: soft, non-tender, no guarding, no rebound, no distention, no mass/ organomegaly, no hernia Abdomen quadrants: LLQ normal bowel sounds, LUQ normal bowel sounds, RLQ normal bowel sounds, RUQ normal bowel sounds Extremities: moves all, no clubbing, no cyanosis, edema (4+ BLE) Musculoskeletal: no midline vertebral tend, no muscle spasm, no paraspinal tenderness Neuro/STORE MANAGER: alert, oriented X 3, normal speech, gait not tested Skin: abnormal color (BLE erythematous), Blistering noted to anterior shins bilaterally. Noted to be worse on left. Legs actively weeping. Exquisite tenderness to palpation to bilateral lower extremity Psychiatry: normal affect, normal judgment/insight, normal mood Results Findings/Data: Laboratory Tests: 10/28 10/28 1611 1611 Chemistry Sodium (136 - 145 mmol/L) 135 *L Potassium (3.5 - 5.1 mmol/L) 4.7 Chloride (98 - 107 mmol/L) 97 *L Carbon Dioxide (24 - 33 mmol/L) 36 *H Anion Gap (10 - 20 mmol/L) 6.7 *L BUN (7 - 18 mg/dL) 29 *H Creatinine (0.55 - 1.02 mg/dl) 1.35 *H Est GFR (CKD-EPI 2020) (>60 mL/min) 41 *L BUN/Creatinine Ratio (12 - 20) 21 *H Glucose (70 - 99 mg/dL) 219 *H Calculated Osmolality (272 - 288 mOSM/kg) 282 Calcium (8.5 - 10.1 mg/dL) 8.8 Magnesium (1.8 - 2.4 mg/dL) 2.0 Total Bilirubin (0.2 - 1.0 mg/dL) 0.3 AST (15 - 37 U/L) 16 ALT (14 - 59 U/L) 13 *L Total Alk Phosphatase (46 - 116 U/L) 190 *H B-Natriuretic Peptide (0 - 100 pg/mL) 64 Total Protein (6.4 - 8.2 g/dL) 6.5 Albumin (3.4 - 5.0 g/dL) 2.5 *L Globulin (1.5 - 4.0 g/dL) 4.0 Albumin/Globulin Ratio (0.5 - 2.0) 0.6 Triglycerides (< 150 mg/dL) 39 Cholesterol (< 200 mg/dL) 134 LDL Cholesterol (< 100 mg/dl) 55 HDL Cholesterol (> 60 mg/dl) 71 TSH (0.36 - 3.74 uIU/ml) 2.26 Free T4 (0.76 - 1.46 ng/dL) 1.04 Hematology WBC (4.5 - 13.0 10e3/uL) 5.1 RBC (3.80 - 5.10 10e6/uL) 2.60 *L Hgb (11.5 - 15.3 g/dl) 7.4 *L Hct (34.0 - 46.0 %) 23.9 *L MCV (78.0 - 98.0 fL) 92 MCH (25.0 - 35.0 Pg) 28.5 MCHC (31.0 - 36.0 g/dL) 31.0 RDW (11.0 - 15.0 %) 15.4 *H Plt Count (150 - 400 10e3/uL) 166 Neut % (Auto) (35 - 75 %) 60 [place] % (Auto) (0 - 15 %) 10 Nucleat RBC Rel Count (/100 WBC) 0.0 Neut # (Auto) (1.50 - 8.00 x1000/uL) 3.05 Immature Gran % (0 - 1) 1 Lymphocytes % (10 - 50 %) 27 Eosinophils % (0 - 5 %) 3 Basophils % (0 - 5 %) 0 Immature Gran # (0 - 0.05 x1000/uL) 0.04 Lymphocytes # (1.20 - 5.20 x1000/uL) 1.38 Monocytes # (0.40 - 0.90 x1000/uL) 0.49 Eosinophils # (0.00 - 0.50 x1000/uL) 0.13 Basophils # (0.00 - 0.30 x1000/uL) 0.01 Results: labs reviewed, vital signs stable Diagnosis, Assessment Plan Dx/Assessment/Plan: Patient is a 74-year-old female with past medical history COPD on 2 L home O2, CAD, diastolic CHF, HTN/HLD, CKD 3, T2DM, Tobacco use, BUDDY nonadherent to CPAP, obesity >35+ BMI, RLS, chronic anemia who presents with: 1) CHF exacerbation - [place] [facility] [place] and management - cardiology consulted - Dr. Villareal - considerations for R/L HC - monitor vitals q.4 placed on continuous tele - ECHO not needed as most recent as within 1 month - continue home medications as able - follow CBC/CMP - check TSH, magnesium, lipid panel - social work consult for return to long term - IV diuresis 2) COPD on 2L at home - Supplemental oxygen as needed to maintain SpO2 greater than 90% - respiratory consult - start Atrovent, pulmicort, performist 3) CAD/HTN/HLD - continue home medications as able - check UA 4) CKD 3 - follow labs closely as patient requiring aggressive diuresis - avoid nephrotoxic agents 5) T2DM - Hold home medications - BG checks ACHS - SSI - cardiac diet 6) Chronic anemia - follow labs as above 7) Tobacco Use - smoking cessation strongly encouraged x 3.5 minutes - NRT with patches 8) BLE wheeping cutaneous blisters 2/2 liquid scald - severe PCN allergy - start clindamycin - monitor closely 9) hypoalbuminemia - likely 2/2 to mixture of CKD and low protein diet - consider replacement DVT/GI prophylaxis: SCDs and protonix Advanced care planning: Code status is full code. Patient requests full resuscitative measures in the event of cardiopulmonary arrest, including CPR and intubation/mechanical ventilation. I confirmed that the patient s Advance Care Plan is present, code status is documented, or surrogate decision maker is listed in the patient s medical record. External documentation review: I have reviewed available patient records from several sources including emergency department notes, prior discharge summary, prior admission H P, prior diagnostic imaging, and laboratory reports. Medications: Current medications have been reviewed and ordered as appropriate. I have utilized all available immediate resources to obtain, update, or review the patient s current medications (including all prescriptions, dzli-eql-degifle products, herbals, cannabis/cannabidiol products, and vitamin/mineral/dietary ( nutritional supplements). Shared decision making: I have discussed the patient s diagnosis as well as treatment plan in detail. I have provided opportunity for both the patient and family to ask questions and these questions/concerns have been answered and addressed. Patient/family agreeable with above plan and treatment. Potential Risk of Events: Potential risk of an Adverse Event for this patient may include: Respiratory failure Cardiac arrhythmia [place] Orders: Medications Ordered - 12 Hrs Acetaminophen 650 MG Q6HP PRN PO PAIN 1-3/TEMP >/= 100.5 Al Hydrox/Mg Hydrox/Simethicone 30 ML Q4HP PRN PO DYSPEPSIA Aspirin 81 MG DAILY PO Budesonide 0.5 MG RTBID IH Cetirizine HCl 10 MG DAILY PO Cilostazol 100 MG BID PO Clindamycin/Benzoyl Peroxide 300 MG Q8H6 PO Docusate Sodium 100 MG BIDP PRN PO CONSTIPATION Formoterol Fumarate 20 MCG RTBID IH Furosemide 80 MG BID IV (CKD) Gabapentin 300 MG TID PO Hydrocodone Bitart/Acetaminophen 1 EACH Q8HP PRN PO PAIN SCALE 4-10 Insulin Human Lispro 0 HS SUBQ Insulin Human Lispro 0 TIDWM SUBQ Ipratropium [place] 0.5 MG RTQID IH Lisinopril 20 MG DAILY PO Magnesium Hydroxide 30 ML DP PRN PO CONSTIPATION Montelukast Sodium 10 MG HS PO Nadolol 20 MG BID PO Nicotine 21 MG DAILY PRN PRN TD SMOKING CESSATION (CKD) Ondansetron HCl 4 MG Q8HP PRN IV NAUSEA AND VOMITING Pantoprazole Sodium Sesquihydrate 40 MG DAILY@0800 PO Pramipexole Dihydrochloride 0.125 MG DAILY PO Sodium Chloride 10 ML PRN PRN IV FLUSH Venlafaxine HCl 75 MG D PO Consultants: cardiovascular, Respiratory business services representative Code status: full code Plan discussed with: patient, family at 1808 RPT #: [id number] END OF REPORT CC'ed Logic: Ordering Provider: JOANNA MARIA Attending Provider: YAZMIN ESPINOZA Referring Provider: JESSICA JONES Consulting Provider: TAI CROSS; JESSICA JONES Admitting Provider: YAZMIN ESPINOZA Not Available [facility] 10/28/2024 18:09:55 [place] History Physical - Adult REPORT #: [id number] REPORT STATUS: Signed DATE: 10/28/24 TIME: 161 PATIENT: AMBAR FERNANDEZ UNIT #: [id number] ROOM/BED: [address] AGE: 74 SEX: F ATTEND: Alexis Arce MD ADM AUTHOR: DO CANDACE MARSHALL * ALL edits or amendments must be made on the electronic/computer document * DO CANDACE MARSHALL 10/28/24 1619: History of Present Illness Date of Service: 10/28/24 Chief complaint: Shortness of Breath HPI: Patient is a 74-year-old female with past medical history COPD on 2 L home O2, CAD, diastolic CHF, HTN/HLD, CKD 3, T2DM, Tobacco use, BUDDY nonadherent to CPAP, obesity >35+ BMI, RLS, chronic anemia who presents from outpatient cardiology concerns shortness of breath. She notes that she is felt this way for several months but that is progressively worsening. She has been having worsening orthopnea and paroxysmal nocturnal dyspnea. She denies chest pain, nausea, vomiting, diarrhea, constipation, vision changes, dizziness, diaphoresis. Decision was made with the product engineering manager to admit to hospital for diuresis for acute heart failure in preparation for right and left heart catheterization. During physical exam, patient was noted to be layered several blankets and states that she is still cold. When trying to evaluate her lower extremities, it was noted that she has significant bilateral lower extremity edema along with cutaneous blisters filled with serous fluid and active weeping worse on left. She notes that while at the long term a few days prior to arrival, long term staff accidentally spilled hot soup on her legs. She was started on an antibiotic by her PCP today but has yet to start it. We will admit [place] [facility] [place] and management. Most recent echocardiogram 09/23/2024 Reason for study: Dyspnea Left ventricular diastole: 5.5 Left ventricular systole: 3.4 Septal wall thickness: 1.2 Posterior wall thickness: 1.1 Right ventricular diastole: 1.9 Left Atrium: 3.0 Aortic root: 2.9 TR velocity: 3.28 m/s Impression: 1. Normal left ventricular chamber size with normal left ventricular systolic function. Estimated ejection fraction is 65-70%. There is mild concentric hypertrophy of the left ventricle. There is Doppler evidence for impaired relaxation of the left ventricle 2. No segmental wall motion abnormalities 3. Normal left atrial and right atrial size 4. Normal right ventricular size and function 5. Mild mitral annular calcification with normal mitral valve leaflet mobility and function. There is no mitral insufficiency 6. Mild calcification and thickening of the aortic 5 with normal aortic 5 leaflet mobility and function. There is no aortic insufficiency 7. No pericardial effusion 8. Normal aortic root 9. Normal tricuspid valve, with mild tricuspid insufficiency. Tricuspid regurgitant jet velocity is 3.28 m/s implying a right ventricular systolic pressure of approximately 50-55 mmHg. This signifies mild pulmonary hypertension at 1520 Reported and Signed by: ROBERT VILLAREAL MD Medications: Home Medications: Medication Dose/Rte/Freq Days Qty Entered Last Max Daily Dose Reviewed ROFLUMILAST (DALIRESP) 500 MCG PO DAILY 01/05/23 Strength: 500 MCG TABLET 1125 OXYBUTYNIN CHLORIDE 10 MG PO DAILY 01/05/23 (DITROPAN XL) 1128 Strength: 10 MG TABLET Lisinopril (lisinopriL) 20 MG PO DAILY 01/05/23 Strength: 20 MG TABLET 1129 FLUTICASONE PROPIONATE 1 PUFFS IH BID 01/05/23 (FLOVENT 50 MCG DISKUS 1132 ) Strength: 1 EACH INHALER Cetirizine HCl 10 MG PO DAILY 01/05/23 Strength: 10 MG TABLET 1132 Cilostazol 100 MG PO BID 01/05/23 Strength: 100 MG TABLET 1142 ASPIRIN (ASPIRIN EC) 81 MG PO DAILY 01/05/23 Strength: 81 MG TABLET 1146 POTASSIUM CHLORIDE 20 MEQ PO DAILY 01/05/23 (K-DUR) 1124 Strength: 10 MEQ TAB NADOLOL (CORGARD) 20 MG PO BID 01/05/23 Strength: 20 MG TAB 1125 MONTELUKAST (SINGULAIR) 10 MG PO HS 01/05/23 Strength: 10 MG TABLET 1125 VENLAFAXINE HCL 75 MG PO DAILY 01/05/23 (EFFEXOR) 1133 Strength: 75 MG TABLET Acetaminophen 500 MG PO 01/05/23 Strength: 500 MG TAB Q8HP PRN PAIN 1133 HUM INSULIN NPH/REG 12 UNITS SUBQ 01/05/23 INSULIN HM ACBKDN 1134 (NOVOLIN 70-30) Strength: 100 UNIT/1 ML VIAL FLUTICASONE/SALMETEROL 1 PUFFS IH BID 01/05/23 (ADVAIR HFA 230-21 MCG) 1135 Strength: 1 EACH INHALER GABAPENTIN (NEURONTIN) 300 MG PO TID 01/05/23 Strength: 300 MG CAPSULE 1141 FERROUS SULFATE 325 MG PO BID 01/05/23 (FEOSOL) 1145 Strength: 325 MG (65 MG IRON) TABLET BENZONATATE 100 MG PO 09/04/23 Strength: 100 MG CAPSULE TID PRN PRN COUGH 1115 [BIOFREEZE GEL 4%] 09/04/23 Strength: 1116 Bisacodyl (Gentle Laxative) 1 TAB RC 09/04/23 Strength: 10 MG SUPP.RECT DAILY PRN 1117 CONSTIPATION PANTOPRAZOLE SOD 40 MG PO DAILY 09/04/23 SESQUIHYDRATE 1122 (PROTONIX) Strength: 40 MG TABLET Sennosides (Senna) 8.6 MG PO 09/04/23 Strength: 8.6 MG TABLET DAILY PRN PRN 1125 CONSTIPATION TIOTROPIUM BROMIDE 1 CAP IH DAILY 09/04/23 (SPIRIVA INHALER 18MCG) 1126 Strength: 1 EACH INHALER TORSEMIDE (DEMADEX) 50 MG PO DAILY 09/04/23 Strength: 100 MG TAB 1127 Cholecalciferol (Vitamin D3) 25 MCG PO DAILY 09/04/23 (Vitamin D3) 1130 Strength: 25 MCG (1,000 UNIT) TABLET PRAMIPEXOLE DI-HCL 0.125 MG PO DAILY 08/30/24 (MIRAPEX) 0044 Strength: 0.125 MG TABLET CALCIUM POLYCARBOPHIL 625 MG PO DAILY 08/30/24 (FIBERCON) 0045 Strength: 625 MG TAB Insulin 20 UNITS SQ BID 08/30/24 Glargine,Hum.rec.anlog 0046 (Lantus Solostar) Strength: 100 UNIT/ML (3 ML) INSULN.PEN INSULN ASP PRT/INSULIN 22 UNITS SUBQ 08/30/24 ASPART WITH MEALS 0047 (NovoLOG MIX 70-30 FLEXPEN SYRN) Strength: 100 UNIT/ML (70-30) INSULN.PEN Insulin Aspart 08/30/24 (Novolog Flexpen) 0048 Strength: 100 UNITS/ML INSULN.PEN HYDROCODONE/ACETAMINOPHEN 1 TAB PO 6 09/08/23 (Hydrocodone-Acetamin Q8HP PRN PAIN 0721 5-325 MG) Strength: 1 EACH TABLET AZITHROMYCIN 250 MG PO 3 08/30/24 (ZITHROMAX) DAILY@1000 0947 Strength: 250 MG TABLET Current Hospital Medications: Sig/Jeffy Start time Last Medication Dose Route Stop Time Status Admin Ipratropium [place] 0.5 MG RTQID 10/29 2199 AC IH Aspirin 81 MG DAILY 10/29 09 AC PO Cetirizine HCl 10 MG DAILY 10/29 09 AC PO Lisinopril 20 MG DAILY 10/29 09 AC PO Pramipexole 0.125 MG DAILY 10/29 09 AC Dihydrochloride PO Venlafaxine HCl 75 MG D 10/29 0900 AC PO Pantoprazole Sodium 40 MG DAILY@0800 10/29 0800 AC Sesquihydrate PO Budesonide 0.5 MG RTBID 10/29 0400 AC IH Formoterol Fumarate 20 MCG RTBID 10/29 0400 AC IH Cilostazol 100 MG BID 10/28 2099 AC PO Furosemide 80 MG BID 10/28 2099 CKD IV Gabapentin 300 MG TID 10/28 2099 AC PO Insulin Human Lispro 0 HS 01/20 2100 AC SUBQ Montelukast Sodium 10 MG HS 10/28 2100 AC PO Nadolol 20 MG BID 10/28 2100 AC PO Insulin Human Lispro 0 TIDWM 10/28 1730 AC SUBQ Clindamycin/Benzoyl 300 MG Q8H6 10/28 1700 AC Peroxide PO 11/04 1659 Hydrocodone Bitart/ 1 EACH Q8HP PRN 10/28 1700 AC Acetaminophen PO Acetaminophen 650 MG Q6HP PRN 10/28 1530 AC PO Al Hydrox/Mg Hydrox/ 30 ML Q4HP PRN 10/28 1530 AC Simethicone PO Docusate Sodium 100 MG BIDP PRN 10/28 1530 AC PO Magnesium Hydroxide 30 ML DP PRN 10/28 1530 AC PO Ondansetron HCl 4 MG Q8HP PRN 10/28 1530 AC IV Sodium Chloride 10 ML PRN PRN 10/28 1530 AC IV Allergies: Coded Allergies: Penicillins (Severe, THROAT SWELLING 01/04/23) aspirin (Severe, CANNOT TAKE PER KIDNEY SPECIALIST 09/04/23) metformin (Severe, DIARRHEA 01/04/23) oxycodone (Severe, RASH AROUND INJECTION SITE 01/04/23) INGREDIENT Allergy: OXYCODONE sitagliptin (From THUBIT) (Severe, UNKNOWN 01/04/23) walnut (Severe, . 09/04/23) Problem List Problem List 1. CHF exacerbation 2. Dyspnea Past Medical/Social History Past medical history: Reports: CHF ( diastolic), CKD (Stage III), COPD, coronary artery disease ( no stents), diabetes mellitus ( type 2), GERD, hyperlipidemia, hypertension. Past surgical history: Reports: appendectomy, cholecystectomy, hernia. Additional surgical history: Bilateral mastectomy Additional family history: Family history of hypertension. Social history: Reports: lives in Assisted, no alcohol use, smoker (1/2 PPD). Additional social history: Can normally do basic ADLs without limitations. Review of Systems Constitutional: Denies: chills, fatigue, fever, generalized weakness, lethargy, malaise, recent wt loss. Skin: Reports: rash (Blistering BLE), swelling. Denies: bruising, contusion, diaphoresis, ecchymosis, itching. Allergy/Immun: Denies: allergic reaction, hives, itching, rhinorrhea. Eyes: Denies: visual loss/blurred, diplopia, photophobia, swelling. ENT: Denies: nasal congestion, sore throat. Respiratory: Reports: GAUTHIER (dyspnea on exertion), non productive cough, parox nocturnal dyspnea, SOB, wheezing. Denies: hemoptysis, pleuritic pain, pneumonia, productive cough (sputum). Cardiovascular: Reports: GAUTHIER (dyspnea on exertion), edema, orthopnea, parox nocturnal dyspnea. Denies: chest pain, palpitations. GI: Denies: abdominal pain, constipation, diarrhea, GERD, nausea, vomiting. : Denies: dysuria, flank pain, frequency. Musculoskeletal: Reports: extremity pain (BLE), extremity swelling. Denies: lumbar pain, neck pain, thoracic pain. Heme: Denies: bleeding, bruising. Endocrine: Denies: weight gain, weight loss. Neuro: Denies: change in LOC, dizziness, focal weakness, headache, lightheaded, numbness, syncope, weakness. Psych: Denies: anxiety, change in mental status, confusion, depression, insomnia. Physical Exam VS/I O Temperature 97.7 Temperature source axillary Pulse rate 72 Respiratory rate 16 Respiratory pattern regular Blood pressure 129/61 Blood pressure sores monitor Bedside pulse oximetry 98 Oxygen delivery method room air General appearance: alert, awake, no acute distress, conversant, face symmetrical, MS normal, oriented, obese (morbidly) Head/Eyes: atraumatic, clear cornea, EOMI, normocephalic, normal conjunctiva/ sclera ENT: normal nose, normal pharynx, normal sinus, moist mucosal membranes Neck: full range of motion, non-tender, no bruit/NL carotids, no lymphadenopathy Cardiovascular: normal capillary refill, regular rate rhythm, normal heart sounds, no gallop, no murmur Respiratory: no distress, on oxygen (2L NC), decreased breath sounds, rales ( bilaterally), rhonchi (bilaterally) Abdomen: soft, non-tender, no guarding, no rebound, no distention, no mass/ organomegaly, no hernia Abdomen quadrants: LLQ normal bowel sounds, LUQ normal bowel sounds, RLQ normal bowel sounds, RUQ normal bowel sounds Extremities: moves all, no clubbing, no cyanosis, edema (4+ BLE) Musculoskeletal: no midline vertebral tend, no muscle spasm, no paraspinal tenderness Neuro/STORE MANAGER: alert, oriented X 3, normal speech, gait not tested Skin: abnormal color (BLE erythematous), Blistering noted to anterior shins bilaterally. Noted to be worse on left. Legs actively weeping. Exquisite tenderness to palpation to bilateral lower extremity Psychiatry: normal affect, normal judgment/insight, normal mood Results Findings/Data: Laboratory Tests: 10/28 10/28 1611 1611 Chemistry Sodium (136 - 145 mmol/L) 135 *L Potassium (3.5 - 5.1 mmol/L) 4.7 Chloride (98 - 107 mmol/L) 97 *L Carbon Dioxide (24 - 33 mmol/L) 36 *H Anion Gap (10 - 20 mmol/L) 6.7 *L BUN (7 - 18 mg/dL) 29 *H Creatinine (0.55 - 1.02 mg/dl) 1.35 *H Est GFR (CKD-EPI 2020) (>60 mL/min) 41 *L BUN/Creatinine Ratio (12 - 20) 21 *H Glucose (70 - 99 mg/dL) 219 *H Calculated Osmolality (272 - 288 mOSM/kg) 282 Calcium (8.5 - 10.1 mg/dL) 8.8 Magnesium (1.8 - 2.4 mg/dL) 2.0 Total Bilirubin (0.2 - 1.0 mg/dL) 0.3 AST (15 - 37 U/L) 16 ALT (14 - 59 U/L) 13 *L Total Alk Phosphatase (46 - 116 U/L) 190 *H B-Natriuretic Peptide (0 - 100 pg/mL) 64 Total Protein (6.4 - 8.2 g/dL) 6.5 Albumin (3.4 - 5.0 g/dL) 2.5 *L Globulin (1.5 - 4.0 g/dL) 4.0 Albumin/Globulin Ratio (0.5 - 2.0) 0.6 Triglycerides (< 150 mg/dL) 39 Cholesterol (< 200 mg/dL) 134 LDL Cholesterol (< 100 mg/dl) 55 HDL Cholesterol (> 60 mg/dl) 71 TSH (0.36 - 3.74 uIU/ml) 2.26 Free T4 (0.76 - 1.46 ng/dL) 1.04 Hematology WBC (4.5 - 13.0 10e3/uL) 5.1 RBC (3.80 - 5.10 10e6/uL) 2.60 *L Hgb (11.5 - 15.3 g/dl) 7.4 *L Hct (34.0 - 46.0 %) 23.9 *L MCV (78.0 - 98.0 fL) 92 MCH (25.0 - 35.0 Pg) 28.5 MCHC (31.0 - 36.0 g/dL) 31.0 RDW (11.0 - 15.0 %) 15.4 *H Plt Count (150 - 400 10e3/uL) 166 Neut % (Auto) (35 - 75 %) 60 [place] % (Auto) (0 - 15 %) 10 Nucleat RBC Rel Count (/100 WBC) 0.0 Neut # (Auto) (1.50 - 8.00 x1000/uL) 3.05 Immature Gran % (0 - 1) 1 Lymphocytes % (10 - 50 %) 27 Eosinophils % (0 - 5 %) 3 Basophils % (0 - 5 %) 0 Immature Gran # (0 - 0.05 x1000/uL) 0.04 Lymphocytes # (1.20 - 5.20 x1000/uL) 1.38 Monocytes # (0.40 - 0.90 x1000/uL) 0.49 Eosinophils # (0.00 - 0.50 x1000/uL) 0.13 Basophils # (0.00 - 0.30 x1000/uL) 0.01 Results: labs reviewed, vital signs stable Diagnosis, Assessment Plan Dx/Assessment/Plan: Patient is a 74-year-old female with past medical history COPD on 2 L home O2, CAD, diastolic CHF, HTN/HLD, CKD 3, T2DM, Tobacco use, BUDDY nonadherent to CPAP, obesity >35+ BMI, RLS, chronic anemia who presents with: 1) CHF exacerbation - abdomen to [facility] [place] evaluation and management - cardiology consulted - Dr. Villareal - considerations for R/L HC - monitor vitals q.4 placed on continuous tele - ECHO not needed as most recent as within 1 month - continue home medications as able - follow CBC/CMP - check TSH, magnesium, lipid panel - social work consult for return to long term - IV diuresis 2) COPD on 2L at home - Supplemental oxygen as needed to maintain SpO2 greater than 90% - respiratory consult - start Atrovent, pulmicort, performist 3) CAD/HTN/HLD - continue home medications as able - check UA 4) CKD 3 - follow labs closely as patient requiring aggressive diuresis - avoid nephrotoxic agents 5) T2DM - Hold home medications - BG checks ACHS - SSI - cardiac diet 6) Chronic anemia - follow labs as above 7) Tobacco Use - smoking cessation strongly encouraged x 3.5 minutes - NRT with patches 8) BLE wheeping cutaneous blisters 2/2 liquid scald - severe PCN allergy - start clindamycin - monitor closely 9) hypoalbuminemia - likely 2/2 to mixture of CKD and low protein diet - consider replacement DVT/GI prophylaxis: SCDs and protonix Advanced care planning: Code status is full code. Patient requests full resuscitative measures in the event of cardiopulmonary arrest, including CPR and intubation/mechanical ventilation. I confirmed that the patient s Advance Care Plan is present, code status is documented, or surrogate decision maker is listed in the patient s medical record. External documentation review: I have reviewed available patient records from several sources including emergency department notes, prior discharge summary, prior admission H P, prior diagnostic imaging, and laboratory reports. Medications: Current medications have been reviewed and ordered as appropriate. I have utilized all available immediate resources to obtain, update, or review the patient s current medications (including all prescriptions, [id number] products, herbals, cannabis/cannabidiol products, and vitamin/mineral/dietary ( nutritional supplements). Shared decision making: I have discussed the patient s diagnosis as well as treatment plan in detail. I have provided opportunity for both the patient and family to ask questions and these questions/concerns have been answered and addressed. Patient/family agreeable with above plan and treatment. Potential Risk of Events: Potential risk of an Adverse Event for this patient may include: Respiratory failure Cardiac arrhythmia [place] Orders: Medications Ordered - 12 Hrs Acetaminophen 650 MG Q6HP PRN PO PAIN 1-3/TEMP >/= 100.5 Al Hydrox/Mg Hydrox/Simethicone 30 ML Q4HP PRN PO DYSPEPSIA Aspirin 81 MG DAILY PO Budesonide 0.5 MG RTBID IH Cetirizine HCl 10 MG DAILY PO Cilostazol 100 MG BID PO Clindamycin/Benzoyl Peroxide 300 MG Q8H6 PO Docusate Sodium 100 MG BIDP PRN PO CONSTIPATION Formoterol Fumarate 20 MCG RTBID IH Furosemide 80 MG BID IV (CKD) Gabapentin 300 MG TID PO Hydrocodone Bitart/Acetaminophen 1 EACH Q8HP PRN PO PAIN SCALE 4-10 Insulin Human Lispro 0 HS SUBQ Insulin Human Lispro 0 TIDWM SUBQ Ipratropium [place] 0.5 MG RTQID IH Lisinopril 20 MG DAILY PO Magnesium Hydroxide 30 ML DP PRN PO CONSTIPATION Montelukast Sodium 10 MG HS PO Nadolol 20 MG BID PO Nicotine 21 MG DAILY PRN PRN TD SMOKING CESSATION (CKD) Ondansetron HCl 4 MG Q8HP PRN IV NAUSEA AND VOMITING Pantoprazole Sodium Sesquihydrate 40 MG DAILY@0800 PO Pramipexole Dihydrochloride 0.125 MG DAILY PO Sodium Chloride 10 ML PRN PRN IV FLUSH Venlafaxine HCl 75 MG D PO Consultants: cardiovascular, Respiratory business services representative Code status: full code Plan discussed with: patient, family ALEXIS ARCE 10/29/24 0836: Problem List Problem List 1. CHF exacerbation 2. Dyspnea Diagnosis, Assessment Plan Dx/Assessment/Plan: PATIENT SEEN AND EXAMINED WITH THE CONSUMER SAFETY OFFICER. I AGREE WITH THE HISTORY, PHYSICAL EXAMINATION, ASSESSMENT AND PLAN DOCUMENTED at 1808 RPT #: [id number] END OF REPORT CC'ed Logic: Ordering Provider: JOANNA MARIA Attending Provider: YAZMIN ESPINOZA Referring Provider: JESSICA JONES Consulting Provider: TAI JONES Admitting Provider: YAZMIN ESPINOZA Not Available [facility] 10/29/2024 08:38:14 [place] History Physical - Adult REPORT #: [id number] REPORT STATUS: Signed DATE: 10/28/24 TIME: 1618 PATIENT: AMBAR FERNANDEZ UNIT #: [id number] ROOM/BED: [address] AGE: 74 SEX: F ATTEND: Alexis Arce MD ADM AUTHOR: DO CANDACE MARSHALL * ALL edits or amendments must be made on the electronic/computer document * DO CANDACE MARSHALL 10/28/24 1619: History of Present Illness Date of Service: 10/28/24 Chief complaint: Shortness of Breath HPI: Patient is a 74-year-old female with past medical history COPD on 2 L home O2, CAD, diastolic CHF, HTN/HLD, CKD 3, T2DM, Tobacco use, BUDDY nonadherent to CPAP, obesity >35+ BMI, RLS, chronic anemia who presents from outpatient cardiology concerns shortness of breath. She notes that she is felt this way for several months but that is progressively worsening. She has been having worsening orthopnea and paroxysmal nocturnal dyspnea. She denies chest pain, nausea, vomiting, diarrhea, constipation, vision changes, dizziness, diaphoresis. Decision was made with the product engineering manager to admit to hospital for diuresis for acute heart failure in preparation for right and left heart catheterization. During physical exam, patient was noted to be layered several blankets and states that she is still cold. When trying to evaluate her lower extremities, it was noted that she has significant bilateral lower extremity edema along with cutaneous blisters filled with serous fluid and active weeping worse on left. She notes that while at the long term a few days prior to arrival, long term staff accidentally spilled hot soup on her legs. She was started on an antibiotic by her PCP today but has yet to start it. We will [place] [facility] [place] and management. Most recent echocardiogram 09/23/2024 Reason for study: Dyspnea Left ventricular diastole: 5.5 Left ventricular systole: 3.4 Septal wall thickness: 1.2 Posterior wall thickness: 1.1 Right ventricular diastole: 1.9 Left Atrium: 3.0 Aortic root: 2.9 TR velocity: 3.28 m/s Impression: 1. Normal left ventricular chamber size with normal left ventricular systolic function. Estimated ejection fraction is 65-70%. There is mild concentric hypertrophy of the left ventricle. There is Doppler evidence for impaired relaxation of the left ventricle 2. No segmental wall motion abnormalities 3. Normal left atrial and right atrial size 4. Normal right ventricular size and function 5. Mild mitral annular calcification with normal mitral valve leaflet mobility and function. There is no mitral insufficiency 6. Mild calcification and thickening of the aortic 5 with normal aortic 5 leaflet mobility and function. There is no aortic insufficiency 7. No pericardial effusion 8. Normal aortic root 9. Normal tricuspid valve, with mild tricuspid insufficiency. Tricuspid regurgitant jet velocity is 3.28 m/s implying a right ventricular systolic pressure of approximately 50-55 mmHg. This signifies mild pulmonary hypertension at 1520 Reported and Signed by: ROBERT VILLAREAL MD Medications: Home Medications: Medication Dose/Rte/Freq Days Qty Entered Last Max Daily Dose Reviewed ROFLUMILAST (DALIRESP) 500 MCG PO DAILY 01/05/23 Strength: 500 MCG TABLET 1125 OXYBUTYNIN CHLORIDE 10 MG PO DAILY 01/05/23 (DITROPAN XL) 1128 Strength: 10 MG TABLET Lisinopril (lisinopriL) 20 MG PO DAILY 01/05/23 Strength: 20 MG TABLET 1129 FLUTICASONE PROPIONATE 1 PUFFS IH BID 01/05/23 (FLOVENT 50 MCG DISKUS 1132 ) Strength: 1 EACH INHALER Cetirizine HCl 10 MG PO DAILY 01/05/23 Strength: 10 MG TABLET 1132 Cilostazol 100 MG PO BID 01/05/23 Strength: 100 MG TABLET 1142 ASPIRIN (ASPIRIN EC) 81 MG PO DAILY 01/05/23 Strength: 81 MG TABLET 1146 POTASSIUM CHLORIDE 20 MEQ PO DAILY 01/05/23 (K-DUR) 1124 Strength: 10 MEQ TAB NADOLOL (CORGARD) 20 MG PO BID 01/05/23 Strength: 20 MG TAB 1125 MONTELUKAST (SINGULAIR) 10 MG PO HS 01/05/23 Strength: 10 MG TABLET 1125 VENLAFAXINE HCL 75 MG PO DAILY 01/05/23 (EFFEXOR) 1133 Strength: 75 MG TABLET Acetaminophen 500 MG PO 01/05/23 Strength: 500 MG TAB Q8HP PRN PAIN 1133 HUM INSULIN NPH/REG 12 UNITS SUBQ 01/05/23 INSULIN HM ACBKDN 1134 (NOVOLIN 70-30) Strength: 100 UNIT/1 ML VIAL FLUTICASONE/SALMETEROL 1 PUFFS IH BID 01/05/23 (ADVAIR HFA 230-21 MCG) 1135 Strength: 1 EACH INHALER GABAPENTIN (NEURONTIN) 300 MG PO TID 01/05/23 Strength: 300 MG CAPSULE 1141 FERROUS SULFATE 325 MG PO BID 01/05/23 (FEOSOL) 1145 Strength: 325 MG (65 MG IRON) TABLET BENZONATATE 100 MG PO 09/04/23 Strength: 100 MG CAPSULE TID PRN PRN COUGH 1115 [BIOFREEZE GEL 4%] 11/27/23 Strength: 1116 Bisacodyl (Gentle Laxative) 1 TAB RC 09/04/23 Strength: 10 MG SUPP.RECT DAILY PRN 1117 CONSTIPATION PANTOPRAZOLE SOD 40 MG PO DAILY 09/04/23 SESQUIHYDRATE 1122 (PROTONIX) Strength: 40 MG TABLET Sennosides (Senna) 8.6 MG PO 09/04/23 Strength: 8.6 MG TABLET DAILY PRN PRN 1125 CONSTIPATION TIOTROPIUM BROMIDE 1 CAP IH DAILY 09/04/23 (SPIRIVA INHALER 18MCG) 1126 Strength: 1 EACH INHALER TORSEMIDE (DEMADEX) 50 MG PO DAILY 09/04/23 Strength: 100 MG TAB 1127 Cholecalciferol (Vitamin D3) 25 MCG PO DAILY 09/04/23 (Vitamin D3) 1130 Strength: 25 MCG (1,000 UNIT) TABLET PRAMIPEXOLE DI-HCL 0.125 MG PO DAILY 08/30/24 (MIRAPEX) 0044 Strength: 0.125 MG TABLET CALCIUM POLYCARBOPHIL 625 MG PO DAILY 08/30/24 (FIBERCON) 0045 Strength: 625 MG TAB Insulin 20 UNITS SQ BID 08/30/24 Glargine,Hum.rec.anlog 0046 (Lantus Solostar) Strength: 100 UNIT/ML (3 ML) INSULN.PEN INSULN ASP PRT/INSULIN 22 UNITS SUBQ 08/30/24 ASPART WITH MEALS 0047 (NovoLOG MIX 70-30 FLEXPEN SYRN) Strength: 100 UNIT/ML (70-30) INSULN.PEN Insulin Aspart 08/30/24 (Novolog Flexpen) 0048 Strength: 100 UNITS/ML INSULN.PEN HYDROCODONE/ACETAMINOPHEN 1 TAB PO 6 09/08/23 (Hydrocodone-Acetamin Q8HP PRN PAIN 0721 5-325 MG) Strength: 1 EACH TABLET AZITHROMYCIN 250 MG PO 3 08/30/24 (ZITHROMAX) DAILY@1000 0947 Strength: 250 MG TABLET Current Hospital Medications: Sig/Jeffy Start time Last Medication Dose Route Stop Time Status Admin Ipratropium [place] 0.5 MG RTQID 10/29 2199 AC IH Aspirin 81 MG DAILY 10/29 0900 AC PO Cetirizine HCl 10 MG DAILY 10/29 0900 AC PO Lisinopril 20 MG DAILY 10/29 0900 AC PO Pramipexole 0.125 MG DAILY 10/29 0900 AC Dihydrochloride PO Venlafaxine HCl 75 MG D 10/29 0900 AC PO Pantoprazole Sodium 40 MG DAILY@0800 10/29 0800 AC Sesquihydrate PO Budesonide 0.5 MG RTBID 10/29 0400 AC IH Formoterol Fumarate 20 MCG RTBID 10/29 0400 AC IH Cilostazol 100 MG BID 10/28 2100 AC PO Furosemide 80 MG BID 10/28 2100 CKD IV Gabapentin 300 MG TID 10/28 2100 AC PO Insulin Human Lispro 0 HS 10/28 2100 AC SUBQ Montelukast Sodium 10 MG HS 10/28 2100 AC PO Nadolol 20 MG BID 10/28 2100 AC PO Insulin Human Lispro 0 TIDWM 10/28 1730 AC SUBQ Clindamycin/Benzoyl 300 MG Q8H6 10/28 1700 AC Peroxide PO 11/04 1659 Hydrocodone Bitart/ 1 EACH Q8HP PRN 10/28 1700 AC Acetaminophen PO Acetaminophen 650 MG Q6HP PRN 10/28 1530 AC PO Al Hydrox/Mg Hydrox/ 30 ML Q4HP PRN 10/28 1530 AC Simethicone PO Docusate Sodium 100 MG BIDP PRN 10/28 1530 AC PO Magnesium Hydroxide 30 ML DP PRN 10/28 1530 AC PO Ondansetron HCl 4 MG Q8HP PRN 10/28 1530 AC IV Sodium Chloride 10 ML PRN PRN 10/28 1530 AC IV Allergies: Coded Allergies: Penicillins (Severe, THROAT SWELLING 01/04/23) aspirin (Severe, CANNOT TAKE PER KIDNEY SPECIALIST 09/04/23) metformin (Severe, DIARRHEA 01/04/23) oxycodone (Severe, RASH AROUND INJECTION SITE 01/04/23) INGREDIENT Allergy: OXYCODONE sitagliptin (From [employer]) (Severe, UNKNOWN 01/04/23) walnut (Severe, . 09/04/23) Problem List Problem List 1. CHF exacerbation 2. Dyspnea Past Medical/Social History Past medical history: Reports: CHF ( diastolic), CKD (Stage III), COPD, coronary artery disease ( no stents), diabetes mellitus ( type 2), GERD, hyperlipidemia, hypertension. Past surgical history: Reports: appendectomy, cholecystectomy, hernia. Additional surgical history: Bilateral mastectomy Additional family history: Family history of hypertension. Social history: Reports: lives in Assisted, no alcohol use, smoker (1/2 PPD). Additional social history: Can normally do basic ADLs without limitations. Review of Systems Constitutional: Denies: chills, fatigue, fever, generalized weakness, lethargy, malaise, recent wt loss. Skin: Reports: rash (Blistering BLE), swelling. Denies: bruising, contusion, diaphoresis, ecchymosis, itching. Allergy/Immun: Denies: allergic reaction, hives, itching, rhinorrhea. Eyes: Denies: visual loss/blurred, diplopia, photophobia, swelling. ENT: Denies: nasal congestion, sore throat. Respiratory: Reports: GAUTHIER (dyspnea on exertion), non productive cough, parox nocturnal dyspnea, SOB, wheezing. Denies: hemoptysis, pleuritic pain, pneumonia, productive cough (sputum). Cardiovascular: Reports: GAUTHIER (dyspnea on exertion), edema, orthopnea, parox nocturnal dyspnea. Denies: chest pain, palpitations. GI: Denies: abdominal pain, constipation, diarrhea, GERD, nausea, vomiting. : Denies: dysuria, flank pain, frequency. Musculoskeletal: Reports: extremity pain (BLE), extremity swelling. Denies: lumbar pain, neck pain, thoracic pain. Heme: Denies: bleeding, bruising. Endocrine: Denies: weight gain, weight loss. Neuro: Denies: change in LOC, dizziness, focal weakness, headache, lightheaded, numbness, syncope, weakness. Psych: Denies: anxiety, change in mental status, confusion, depression, insomnia. Physical Exam VS/I O Temperature 97.7 Temperature source axillary Pulse rate 72 Respiratory rate 16 Respiratory pattern regular Blood pressure 129/61 Blood pressure sores monitor Bedside pulse oximetry 98 Oxygen delivery method room air General appearance: alert, awake, no acute distress, conversant, face symmetrical, MS normal, oriented, obese (morbidly) Head/Eyes: atraumatic, clear cornea, EOMI, normocephalic, normal conjunctiva/ sclera ENT: normal nose, normal pharynx, normal sinus, moist mucosal membranes Neck: full range of motion, non-tender, no bruit/NL carotids, no lymphadenopathy Cardiovascular: normal capillary refill, regular rate rhythm, normal heart sounds, no gallop, no murmur Respiratory: no distress, on oxygen (2L NC), decreased breath sounds, rales ( bilaterally), rhonchi (bilaterally) Abdomen: soft, non-tender, no guarding, no rebound, no distention, no mass/ organomegaly, no hernia Abdomen quadrants: LLQ normal bowel sounds, LUQ normal bowel sounds, RLQ normal bowel sounds, RUQ normal bowel sounds Extremities: moves all, no clubbing, no cyanosis, edema (4+ BLE) Musculoskeletal: no midline vertebral tend, no muscle spasm, no paraspinal tenderness Neuro/STORE MANAGER: alert, oriented X 3, normal speech, gait not tested Skin: abnormal color (BLE erythematous), Blistering noted to anterior shins bilaterally. Noted to be worse on left. Legs actively weeping. Exquisite tenderness to palpation to bilateral lower extremity Psychiatry: normal affect, normal judgment/insight, normal mood Results Findings/Data: Laboratory Tests: 10/28 10/28 1611 1611 Chemistry Sodium (136 - 145 mmol/L) 135 *L Potassium (3.5 - 5.1 mmol/L) 4.7 Chloride (98 - 107 mmol/L) 97 *L Carbon Dioxide (24 - 33 mmol/L) 36 *H Anion Gap (10 - 20 mmol/L) 6.7 *L BUN (7 - 18 mg/dL) 29 *H Creatinine (0.55 - 1.02 mg/dl) 1.35 *H Est GFR (CKD-EPI 2020) (>60 mL/min) 41 *L BUN/Creatinine Ratio (12 - 20) 21 *H Glucose (70 - 99 mg/dL) 219 *H Calculated Osmolality (272 - 288 mOSM/kg) 282 Calcium (8.5 - 10.1 mg/dL) 8.8 Magnesium (1.8 - 2.4 mg/dL) 2.0 Total Bilirubin (0.2 - 1.0 mg/dL) 0.3 AST (15 - 37 U/L) 16 ALT (14 - 59 U/L) 13 *L Total Alk Phosphatase (46 - 116 U/L) 190 *H B-Natriuretic Peptide (0 - 100 pg/mL) 64 Total Protein (6.4 - 8.2 g/dL) 6.5 Albumin (3.4 - 5.0 g/dL) 2.5 *L Globulin (1.5 - 4.0 g/dL) 4.0 Albumin/Globulin Ratio (0.5 - 2.0) 0.6 Triglycerides (< 150 mg/dL) 39 Cholesterol (< 200 mg/dL) 134 LDL Cholesterol (< 100 mg/dl) 55 HDL Cholesterol (> 60 mg/dl) 71 TSH (0.36 - 3.74 uIU/ml) 2.26 Free T4 (0.76 - 1.46 ng/dL) 1.04 Hematology WBC (4.5 - 13.0 10e3/uL) 5.1 RBC (3.80 - 5.10 10e6/uL) 2.60 *L Hgb (11.5 - 15.3 g/dl) 7.4 *L Hct (34.0 - 46.0 %) 23.9 *L MCV (78.0 - 98.0 fL) 92 MCH (25.0 - 35.0 Pg) 28.5 MCHC (31.0 - 36.0 g/dL) 31.0 RDW (11.0 - 15.0 %) 15.4 *H Plt Count (150 - 400 10e3/uL) 166 Neut % (Auto) (35 - 75 %) 60 [place] % (Auto) (0 - 15 %) 10 Nucleat RBC Rel Count (/100 WBC) 0.0 Neut # (Auto) (1.50 - 8.00 x1000/uL) 3.05 Immature Gran % (0 - 1) 1 Lymphocytes % (10 - 50 %) 27 Eosinophils % (0 - 5 %) 3 Basophils % (0 - 5 %) 0 Immature Gran # (0 - 0.05 x1000/uL) 0.04 Lymphocytes # (1.20 - 5.20 x1000/uL) 1.38 Monocytes # (0.40 - 0.90 x1000/uL) 0.49 Eosinophils # (0.00 - 0.50 x1000/uL) 0.13 Basophils # (0.00 - 0.30 x1000/uL) 0.01 Results: labs reviewed, vital signs stable Diagnosis, Assessment Plan Dx/Assessment/Plan: Patient is a 74-year-old female with past medical history COPD on 2 L home O2, CAD, diastolic CHF, HTN/HLD, CKD 3, T2DM, Tobacco use, BUDDY nonadherent to CPAP, obesity >35+ BMI, RLS, chronic anemia who presents with: 1) CHF exacerbation - abdomen [place] [facility] [place] evaluation and management - cardiology consulted - Dr. Villareal - considerations for R/L HC - monitor vitals q.4 placed on continuous tele - ECHO not needed as most recent as within 1 month - continue home medications as able - follow CBC/CMP - check TSH, magnesium, lipid panel - social work consult for return to long term - IV diuresis 2) COPD on 2L at home - Supplemental oxygen as needed to maintain SpO2 greater than 90% - respiratory consult - start Atrovent, pulmicort, performist 3) CAD/HTN/HLD - continue home medications as able - check UA 4) CKD 3 - follow labs closely as patient requiring aggressive diuresis - avoid nephrotoxic agents 5) T2DM - Hold home medications - BG checks ACHS - SSI - cardiac diet 6) Chronic anemia - follow labs as above 7) Tobacco Use - smoking cessation strongly encouraged x 3.5 minutes - NRT with patches 8) BLE wheeping cutaneous blisters 2/2 liquid scald - severe PCN allergy - start clindamycin - monitor closely 9) hypoalbuminemia - likely 2/2 to mixture of CKD and low protein diet - consider replacement DVT/GI prophylaxis: SCDs and protonix Advanced care planning: Code status is full code. Patient requests full resuscitative measures in the event of cardiopulmonary arrest, including CPR and intubation/mechanical ventilation. I confirmed that the patient s Advance Care Plan is present, code status is documented, or surrogate decision maker is listed in the patient s medical record. External documentation review: I have reviewed available patient records from several sources including emergency department notes, prior discharge summary, prior admission H P, prior diagnostic imaging, and laboratory reports. Medications: Current medications have been reviewed and ordered as appropriate. I have utilized all available immediate resources to obtain, update, or review the patient s current medications (including all prescriptions, [id number] products, herbals, cannabis/cannabidiol products, and vitamin/mineral/dietary ( nutritional supplements). Shared decision making: I have discussed the patient s diagnosis as well as treatment plan in detail. I have provided opportunity for both the patient and family to ask questions and these questions/concerns have been answered and addressed. Patient/family agreeable with above plan and treatment. Potential Risk of Events: Potential risk of an Adverse Event for this patient may include: Respiratory failure Cardiac arrhythmia UT Orders: Medications Ordered - 12 Hrs Acetaminophen 650 MG Q6HP PRN PO PAIN 1-3/TEMP >/= 100.5 Al Hydrox/Mg Hydrox/Simethicone 30 ML Q4HP PRN PO DYSPEPSIA Aspirin 81 MG DAILY PO Budesonide 0.5 MG RTBID IH Cetirizine HCl 10 MG DAILY PO Cilostazol 100 MG BID PO Clindamycin/Benzoyl Peroxide 300 MG Q8H6 PO Docusate Sodium 100 MG BIDP PRN PO CONSTIPATION Formoterol Fumarate 20 MCG RTBID IH Furosemide 80 MG BID IV (CKD) Gabapentin 300 MG TID PO Hydrocodone Bitart/Acetaminophen 1 EACH Q8HP PRN PO PAIN SCALE 4-10 Insulin Human Lispro 0 HS SUBQ Insulin Human Lispro 0 TIDWM SUBQ Ipratropium [place] 0.5 MG RTQID IH Lisinopril 20 MG DAILY PO Magnesium Hydroxide 30 ML DP PRN PO CONSTIPATION Montelukast Sodium 10 MG HS PO Nadolol 20 MG BID PO Nicotine 21 MG DAILY PRN PRN TD SMOKING CESSATION (CKD) Ondansetron HCl 4 MG Q8HP PRN IV NAUSEA AND VOMITING Pantoprazole Sodium Sesquihydrate 40 MG DAILY@0800 PO Pramipexole Dihydrochloride 0.125 MG DAILY PO Sodium Chloride 10 ML PRN PRN IV FLUSH Venlafaxine HCl 75 MG D PO Consultants: cardiovascular, Respiratory business services representative Code status: full code Plan discussed with: patient, family ALEXIS ARCE 10/29/24 0836: Problem List Problem List 1. CHF exacerbation 2. Dyspnea Diagnosis, Assessment Plan Dx/Assessment/Plan: PATIENT SEEN AND EXAMINED WITH THE CONSUMER SAFETY OFFICER. I AGREE WITH THE HISTORY, PHYSICAL EXAMINATION, ASSESSMENT AND PLAN DOCUMENTED at 1808 at 0837 RPT #: [id number] END OF REPORT CC'ed Logic: Ordering Provider: JOANNA MARIA Attending Provider: YAZMIN ESPINOZA Referring Provider: JESSICA JONES Consulting Provider: TAI CROSS; JESSICA JONES Admitting Provider: YAZMIN ESPINOZA Not Available [facility] 10/29/2024 08:38:15 Procedures Surgical History Date Name Laterality Status Provider Name and Address Organization Details Recorded Time 01/05 LEFT HEART CATHETERIZATION (SURG) completed Tereso Simsghanshyam CUTLER - [facility] & [place] 3 13:13:00 10/09 Breast Surgery completed NormaJavier CUTLER - [facility] & [place] 3 10:30:49 cholecystectomy completed Kimberlynamanda CUTLER - [facility] & [place] 3 11:29:51 excision of bilatera l breasts completed Kimberlynamanda CUTLER - [facility] & [place] 3 11:30:11 Hysterectomy completed Kimberlyn CUTLER - [facility] & [place] 3 11:30:27 Appendectomy completed Kimberlynamanda CUTLER - [facility] & [place] 3 11:30:34 Hernia Repair completed Kimberlynamanda CUTLER - [facility] & [place] 3 11:30:44 decompression of med liz nerve completed Brittaney CUTLER - [facility] & [place] 3 15:08:01 esophagogastroduodenoscopy completed Kimberlynamanda CUTLER - [facility] & [place] 3 11:31:12 procedure on urinary bladder completed Brittaney Robertson [facility] & [place] 3 15:08:47 Mastectomy completed Vicky CUTLER - LP NT [facility] & [place] 3 14:25:49 Overlocker Surgery completed Vicky CUTLER - L PNT [facility] & [place] 3 14:25:49 Imaging Results None recorded. Procedure Notes None recorded. Medical Equipment None Reported. Allergies Allergen ID Allergen Name Allergen Category Reaction Reaction Severity Criticality Documentation Date Start Date Code Code System Note Provider Name and Address Organization Details Recorded Time 24697 Tylox medicatio n rash Not available Not available 01/03/202319700 5 RxNorm OMAYRA Eugene - [facility] & [place] 3 15:03:41 73637 acetamino phen / oxycodone medicatio n hallucina tions Not available Not available 01/03/2023 04207 3 RxNorm Brittaney stoddard, OMAYRA - [facility] - [place] & [place] 3 15:04:11 80150 Product containin g penicilli n (product) medicatio n Not available Not available Not available 01/03/2023 41716 8001 SNOMED Brittaney stoddard, OMAYRA Robertson [facility] - [place] & [place] 3 15:04:54 81485 Januvia medicatio n Not available Not available Not available 01/03/2023 55876 6 RxNorm Brittaney stoddard, OMAYRA - [facility] - [place] & [place] 3 15:05:02 73796 aspirin medicatio n Not available Not available Not available 01/03/2023 1191 RxNorm canno t take per [place] , [place] Brittaney stoddard, OMAYRA - [facility] - [place] & [place] 3 15:06:18 77047 metformin medicatio n Not available Not available Not available 02/07/2023 6809 RxNorm Vicky stoddard, OMAYRA - [facility] - [place] & [place] 3 14:26:22 28695 oxycodone medicatio n Not available Not available Not available 02/07/2023 7804 RxNorm Vicky stoddard, OMAYRA - [facility] - [place] & [place] 3 14:26:32 80601 walnut allergeni c extract food Not available Not available Not available 02/07/2023 31592 0 RxNorm Vicky stoddard, OMAYRA - [facility] - [place] & [place] 3 14:26:40 53362 sitaglipt in medicatio n Not available Not available Not available 02/07/2023 70263 1 RxNorm Vicky stoddard, OMAYRA - [facility] - [place] & [place] 3 14:26:54 Medications Name Sig Start Date Stop Date Status Note LastModified by Organization Details LastModified Time securesafe safety pen needles/30g x 5/16 30g x 8 mm misc 10/28 completed Not Available Not Available Not Available Tussin DM 10 mg-100 mg/5 mL oral syrup active Not Available Not Available N ot Available furosemide 40 mg tablet 03/14 completed Not Available Not Available Not Available cilostazol 100 mg tablet Take 1 tablet twice a day by oral route as directed for 30 days. active Not Available Not Available No t Available Novolin 70/30 U-100 Insulin 100 unit/mL subcutaneou s suspension Inject 8 units 3 times a day by sub-q route for 27 days. active Not Available Not Available No t Available fluticasone 250 mcg-salmete rol 50 mcg/dose blistr powdr for inhalation Inhale 1 puff twice a day by inhalatio n route. active Not Available Not Available No t Available venlafaxine ER 37.5 mg capsule,ext ended release 24 hr 01/11 completed Not Available Not Available Not Available potassium chloride ER 10 mEq capsule,ext ended release 01/11 completed Not Available Not Available Not Available gabapentin 600 mg tablet 01/11 completed Not Available Not Available Not Available ipratropium 0.5 mg-albutero l 3 mg (2.5 mg base)/3 mL nebulizatio n soln active Not Available Not Available Not Available torsemide 20 mg tablet 08/04 completed Not Available Not Available Not Available bumetanide 2 mg tablet Take 2 tablets every day by oral route as directed for 30 days. 02/07 completed Not Available Not Available Not Available lidocaine 4 % topical patch active Not Available Not Available Not Available Normal Saline Flush 0.9 % injection syringe active Not Available Not Available Not Available cetirizine 10 mg tablet Take 1 tablet every day by oral route. active Not Available Not Available No t Available oxybutynin chloride ER 10 mg tablet,exte nded release 24 hr Take 1 tablet every day by oral route as directed for 30 days. active Not Available Not Available No t Available azithromyci n 250 mg tablet TAKE 2 TABLETS (500 MG) BY ORAL ROUTE ONCE DAILY FOR 1 DAY THEN 1 TABLET (250 MG) BY ORAL ROUTE ONCE DAILY FOR 4 DAYS 10/28 completed Not Available Not Available Not Available ibuprofen 800 mg tablet 03/14 completed Not Available Not Available Not Available Novolin N NPH U-100 Insulin isophane 100 unit/mL subcutaneou s susp 08/04 completed Not Available Not Available Not Available tizanidine 4 mg tablet 02/07 completed Not Available Not Available Not Available fluconazole 150 mg tablet 10/28 completed Not Available Not Available Not Available albuterol sulfate 1.25 mg/3 mL solution for nebulizatio n Inhale 3 mL 4 times a day by inhalatio n route as needed for 8 days. 08/04 completed Not Available Not Available Not Available hydrocodone 5 mg-acetamin ophen 325 mg tablet 03/13 completed Not Available Not Available Not Available Nystop 100,000 unit/gram topical powder active Not Available Not Available Not Available hydrocortis one 1 % topical ointment active Not Available Not Available Not Available senna 8.6 mg tablet Take 2 tablets every day by oral route as needed. active Not Available Not Available No t Available lisinopril 20 mg tablet Take 1 tablet every day by oral route as directed for 30 days. active Not Available Not Available No t Available ondansetron HCl 4 mg tablet Take 1 tablet every 8 hours by oral route as needed. active Not Available Not Available No t Available famotidine 40 mg tablet Take 1 tablet twice a day by oral route as directed for 30 days. active Not Available Not Available No t Available prednisone 20 mg tablet Take 2 tablets every day by oral route for 5 days. 2023 active Not Available Not Available Not Avai lable spironolact one 100 mg tablet Take 1 tablet every day by oral route as directed for 30 days. 08/04 completed Not Available Not Available Not Available gabapentin 400 mg capsule 01/11 completed Not Available Not Available Not Available sodium chloride 0.45 % intravenous solution active Not Available Not Available Not Available Lantus U-100 Insulin 100 unit/mL subcutaneou s solution active Not Available Not Available N ot Available acetaminoph en 300 mg-codeine 15 mg tablet 03/13 completed Not Available Not Available Not Available potassium chloride ER 10 mEq tablet,exte nded release 08/04 completed Not Available Not Available Not Available melatonin 3 mg tablet active Not Available Not Available No t Available ciprofloxac in 250 mg tablet 10/28 completed Not Available Not Available Not Available levofloxaci n 250 mg tablet 10/28 completed Not Available Not Available Not Available amlodipine 5 mg tablet 02/07 completed Not Available Not Available Not Available bacitracin zinc 500 unit/gram topical ointment 10/28 completed Not Available Not Available Not Available tramadol 50 mg tablet active Not Available Not Available No t Available vancomycin 1,000 mg intravenous injection active Not Available Not Available No t Available zinc oxide 20 % topical ointment active Not Available Not Available Not Available acetaminoph en 500 mg tablet Take 1 tablet every 8 hours by oral route as needed. active Not Available Not Available No t Available triamcinolo ne acetonide 0.1 % topical cream 08/04 completed Not Available Not Available Not Available spironolact one 25 mg tablet 02/07 completed Not Available Not Available Not Available acyclovir 800 mg tablet 08/04 completed Not Available Not Available Not Available nadolol 20 mg tablet Take 1 tablet twice a day by oral route. active Not Available Not Available No t Available potassium chloride ER 20 mEq tablet,exte nded release(par t/cryst) Take 2 tablets every day by oral route for 30 days. active Not Available Not Available No t Available Fleet Enema 19 gram-7 gram/118 mL Insert 118 mL twice a day by rectal route as needed. 09/15 completed Not Available Not Available Not Available famotidine 20 mg tablet 10/28 completed Not Available Not Available Not Available torsemide 100 mg tablet Take 1 tablet every day by oral route for 30 days. active Not Available Not Available No t Available doxycycline monohydrate 100 mg capsule 01/11 completed Not Available Not Available Not Available bisacodyl 10 mg rectal suppository active Not Available Not Available Not Available pantoprazol e 40 mg tablet,lavinia yed release Take 1 tablet every day by oral route as directed for 30 days. active Not Available Not Available No t Available fluoxetine 10 mg capsule 03/13 completed Not Available Not Available Not Available pramipexole 0.125 mg tablet active Not Available Not Available Not Available venlafaxine 50 mg tablet active Not Available Not Available Not Available nitroglycer in 0.4 mg sublingual tablet active Not Available Not Available Not Available gabapentin 300 mg capsule Take 1 capsule 3 times a day by oral route as directed. active Not Available Not Available No t Available aspirin 81 mg chewable tablet 10/28 completed Not Available Not Available Not Available bumetanide 1 mg tablet 01/11 completed Not Available Not Available Not Available montelukast 10 mg tablet Take 1 tablet every day by oral route at bedtime for 30 days. active Not Available Not Available No t Available mupirocin 2 % topical ointment APPLY A THIN FILM TO THE AFFECTED AREA OF SKIN 3 TIMES EACH DAY FOR 7 DAYS active Not Available Not Available No t Available furosemide 20 mg tablet Take 1 tablet every day by oral route as directed for 10 days. 08/04 completed Not Available Not Available Not Available lidocaine 3 %-hydrocort isone 0.5 % topical cream APPLY A THIN LAYER TO THE AFFECTED AREA(S) BY TOPICAL ROUTE 2 TIMES PER DAY active Not Available Not Available No t Available levofloxaci n 500 mg tablet 10/28 completed Not Available Not Available Not Available albuterol sulfate HFA 90 mcg/actuati on aerosol inhaler Inhale 1 puff every 4 hours by inhalatio n route as needed for 16 days. active Not Available Not Available No t Available SSD 1 % topical cream active Not Available Not Available Not Available ferrous sulfate 325 mg (65 mg iron) tablet,lavinia yed release active Not Available Not Available Not Available fluoxetine 20 mg capsule Take 1 capsule every day by oral route as directed for 30 days. 03/13 completed Not Available Not Available Not Available fluticasone propionate 50 mcg/actuati on nasal spray,suspe nsion [place] 2 sprays every day by nasal route around the clock for 30 days. 03/13 completed Not Available Not Available Not Available clotrimazol e 1 % topical cream 08/04 completed Not Available Not Available Not Available doxycycline hyclate 100 mg tablet 10/28 completed Not Available Not Available Not Available glipizide 5 mg tablet Take 1 tablet every day by oral route as directed for 30 days. 08/04 completed Not Available Not Available Not Available ropinirole 4 mg tablet Take 1 tablet every day by oral route at bedtime for 30 days. active Not Available Not Available No t Available Fiber-Lax 625 mg tablet active Not Available Not Available Not Available Novolog Mix 70-30 FlexPen U-100 Insulin 100 unit/mL subcutaneou s pen active Not Available Not Available Not Available Vitamin D3 25 mcg (1,000 unit) tablet active Not Available Not Available Not Available Vitamin D3 25 mcg (1,000 unit) capsule Take 1 unit every day by oral route. active Not Available Not Available No t Available Novolog Mix 70-30 U-100 Insulin 100 unit/mL subcutaneou s solution active Not Available Not Available N ot Available Novolog FlexPen U-100 Insulin aspart 100 unit/mL (3 mL) subcutaneou s active Not Available Not Available Not Available cholestyram ine (with sugar) 4 gram powder for susp in a packet Take 1 packet every 6 hours by oral route as needed for 15 days. active Not Available Not Available No t Available Spiriva with HandiHaler 18 mcg and inhalation capsules 01/11 completed Not Available Not Available Not Available Mucus Relief 400 mg tablet 10/28 completed Not Available Not Available Not Available Dulcolax (bisacodyl) 1 HI D PRN active Not Available Not Available No t Available FeroSul 325 mg (65 mg iron) tablet Take 1 tablet twice a day by oral route as directed. active Not Available Not Available No t Available Lantus Solostar U-100 Insulin 100 unit/mL (3 mL) subcutaneou s pen active Not Available Not Available Not Available diclofenac 1 % topical gel 08/04 completed Not Available Not Available Not Available venlafaxine ER 75 mg tablet,exte nded release 24 hr Take 1 tablet every day by oral route as directed for 30 days. active Not Available Not Available No t Available GaviLyte-G 236 gram-22.74 gram-6.74 gram-5.86 gram oral solution take as directed 10/28 completed Not Available Not Available Not Available Suprep Bowel Prep Kit 17.5 gram-3.13 gram-1.6 gram oral solution 01/11 completed Not Available Not Available Not Available roflumilast 500 mcg tablet Take 1 tablet every day by oral route as directed for 30 days. active Not Available Not Available No t Available BD AutoShield Duo Pen Needle 30 gauge x 12/22 active Not Available Not Available Not Available Accu-Chek Anita Plus test strips 08/04 completed Not Available Not Available Not Available Cough DM ER 30 mg/5 mL oral suspension, extended release 10/28 completed Not Available Not Available Not Available Adult Tussin Chest Congestion 100 mg/5 mL oral liquid active Not Available Not Available Not Available Biofreeze (menthol) 4 % topical gel Apply 1 applicati on twice a day by topical route. active Not Available Not Available No t Available Breo Ellipta 100 mcg-25 mcg/dose powder for inhalation 01/11 completed Not Available Not Available Not Available Spiriva Respimat 2.5 mcg/actuati on solution for inhalation Inhale 1 puff every day by inhalatio n route for 60 days. active Not Available Not Available No t Available Incruse Ellipta 62.5 mcg/actuati on powder for inhalation Inhale 1 microgram every day by inhalatio n route as directed for 30 days. 08/04 completed Not Available Not Available Not Available Droplet Pen Needle 31 gauge x 10/12 completed Not Available Not Available Not Available Novolin 70-30 FlexPen U-100 Insulin 100 unit/mL (70-30) subcutaneou s 08/04 completed Not Available Not Available Not Available Isabel-Tussin DM 10 mg-100 mg/5 mL oral liquid 10/28 completed Not Available Not Available Not Available aspirin 81 mg capsule Take 1 capsule every day by oral route as directed. active Not Available Not Available No t Available insulin glargine-yf gn (U-100) 100 unit/mL (3 mL) subcutaneou s pen active Not Available Not Available Not Available Vitals Date Recorded Body height Body mass index (BMI) Body weight Oxygen saturation Oxygen saturation in Arterial blood by Pulse oximetry Heart rate Systolic And Diastolic Provider Name and Address Organization Details Last Updated DateTime 5 157.48 cm 44.8 kg/m2 670168. 13 g 95 % 95 % 76 /min 114/62 mm[Hg] Kimberlyn boyle [place] - [facility] - [place] & [place] 5 14:20:22 Date Recorded Body height Body mass index (BMI) Body weight Oxygen saturation Oxygen saturation in Arterial blood by Pulse oximetry Heart rate Systolic And Diastolic Provider Name and Address Organization Details Last Updated DateTime 5 157.48 cm 41 kg/m2 370931. 69 g 100 % 100 % 70 /min 120/64 mm[Hg] Domitila Jimenez [place] - [facility] & [place] 5 14:58:15 Date Recorded Body height Body mass index (BMI) Body weight Oxygen saturation Oxygen saturation in Arterial blood by Pulse oximetry Heart rate Systolic And Diastolic Provider Name and Address Organization Details Last Updated DateTime 5 157.48 cm 43.9 kg/m2 099638. 17 g 99 % 99 % 67 /min 124/72 mm[Hg] Kimberlyn Garcialen boyle [facility] & [place] 5 13:50:13 Date Recorded Body height Body mass index (BMI) Body weight Oxygen saturation Oxygen saturation in Arterial blood by Pulse oximetry Heart rate Systolic And Diastolic Provider Name and Address Organization Details Last Updated DateTime 4 157.48 cm 43.9 kg/m2 461267. 17 g 91 % 91 % 95 /min 106/70 mm[Hg] Kimberlyn Darrin boyle [facility] & [place] 4 14:56:09 Social History Question Answer Notes LastModified by [employer] Mobile Details LastModified Time Tobacco Smoking Status Current Every Day Smoker Hermelindo Quincy [facility] & [place] 08/02/2023 16:18:12 Do You Have An Advance Directive? Yes Information not available 02/07/2023 Are You Blind Or Do You Have Difficulty Seeing? No Information not available 02/07/2023 What Is Your Level Of Caffeine Consumption? Moderate [email or web address] Information not available 09/18/2023 What Type Of Diet Are You Following? REGULAR [email or web address] Information not available 09/18/2023 What Was The Date Of Your Most Recent Tobacco Screening? 01/08/2023 Information not available 02/07/2023 At What Age Did You Start Smoking Tobacco? 13 [email or web address] Information not available 09/18/2023 Are You Passively Exposed To Smoke? No Information not available 02/07/2023 How Much Tobacco Do You Smoke? 2 PPD [email or web address] Information not available 08/04/2023 How Many Years Have You Smoked Tobacco? 60 [email or web address] Information not available 01/11/2023 Sex: Female Functional Status Question Answer Note LastModified by [employer] Details LastModified Time Do you use any illicit or recreational drugs? No [email or web address] Information not available 12/27/2022 Do you or have you ever used any other forms of tobacco or nicotine? No [email or web address] Information not available 09/18/2023 What is your level of alcohol consumption? None [email or web address] Information not available 12/27/2022 Do you or have you ever used smokeless tobacco? Never used smokeless tobacco Information not available 02/07/2023 What is your exercise level? None [email or web address] Information not available 01/11/2023 Mental Status None recorded. Family History Relationship Description Onset Age of this Age Resolved Age Notes LastModified by Organization Details LastModified Time Sister Malignant neoplasm of breast [email or web address] Not available 10:21:01 Mother Malignant neoplasm of breast [email or web address] Not available 10:21:01 Father Malignant neoplasm of pharynx [email or web address] Not available 10:21:28 Medical History Condition Response Coronary Artery Disease Y None N Gout N Colon Cancer N Kidney Stones N Hyperthyroidism N Depression Y COPD Y Hypothyroidism N Osteoporosis/Osteopenia N Diverticulitis/Diverticulosis Y Colon Polyps Y Anxiety Disorder N Diabetes Y Obesity Y Bleeding Disorder N Arthritis Y Seizures/Epilepsy N Tuberculosis N Hyperlipidemia Y Cancer Y Stroke N Asthma Y Sleep Apnea Y Sleep Disorder Y GERD/Reflux Y Hepatitis N Cirrhosis Y Liver Disease Y Heart Disease Y Hypertension Y Kidney Disease Y Gynecological HistoryNo gynecological history recorded. Obstetrics History GPAL:G 0 P 0 0 0 0 Immunizations Vaccine Type Date Status Note Provider Nam e and Address Organization Details Recorded Time influenza, unspecified formulation 3 completed Not Available [facility] 09/09/2023 01:33:46 Hep B, unspecified formulation 1 completed Not Available [facility] 09/09/2023 01:33:46 tetanus toxoid, unspecified formulation 1 completed Not Available [facility] 09/09/2023 01:33:46 Past Encounters Encounter ID Performer Location Encounter Start Date Encounter Closed Date Diagnosis/Indication Diagnosis SNOMED-CT Code Diagnosis ICD10 Code Diagnosis IMO Codes Diagnosis Note [id number] Robert Villareal MD [address] OLIVIA [address] [place] [address] 12/27/2022 09:29:25 12/27/2022 10:56:10 Progressive angina 484153599 I20.0 Dyspnea on exertion 6084 5006 R06.09 Pain in le ft lower limb 774212017 M79.605 Peripheral edema 0224304 00 R60.9 Essential hypertension 45542599 I10 Hyperlipidemia 34484229 E78.5 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 542847750 E11.9 Intermitte nt claudication 50278391 I73.9 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 00465566 I70.209 [id number] MD YANN Nelson Ruby [facility] [address] [place] [address] 01/03/2023 14:11:58 01/03/2023 15:54:52 [id number] DAVID BOOKER NP, S [address] OLIVIA [address] [place], [place] [address] 6 01/11/2023 10:17:02 01/11/2023 11:08:32 Peripheral edema 307325700 R60.9 Essential hypertension 86160634 I10 Hyperlipidemia 78203480 E78.5 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 065053617 E11.9 Intermitte nt claudication 16346938 I73.9 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 50691231 I70.209 [id number] DAVID BOOKER NP, S [address] OLIVIA [address] [place] [address] 02/07/2023 14:13:38 02/07/2023 14:51:54 Peripheral edema 019256907 R60.9 Essential hypertension 13737476 I10 Hyperlipidemia 59045730 E78.5 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 540404481 E11.9 Intermitte nt claudication 88353463 I73.9 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 06023207 I70.209 [id number] DAVID BOOKER NP, S [address] OLIVIA [address] [place], [place] [address] 03/14/2023 13:42:34 03/14/2023 14:56:18 Dyspnea on exertion 63920425 R06.09 Carotid ar barb stenosis 41342485 I65.23 Pain in right foot 88905 95310 77306 M79.671 Peripheral edema 4100127 00 R60.9 Essential hypertension 58796000 I10 Hyperlipidemia 06264871 E78.5 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 The pretest likelihood that the patient has developed a new issue between her colonoscop y last year and now is quite low, but a colonoscop y is essential to prove this. Anemia 576305360 D64.9 On iron supplement ation, but do not see prior iron studies, see lab work outlined below, with also requested the patient's records from her recent EGD done at [place] [id number] TEETEE DAVIES NP [facility] [address] 08/29/2023 14:37:43 08/29/2023 15:26:27 Pain of right hand 4531679984 73692 M79.641 Trigger fi nger of right hand 1272004867 6503997 M65.341 [id number] TEETEE DAVIES NP [facility] [address] [address] 09/18/2023 12:52:48 09/18/2023 13:33:58 Follow-up orthopedic assessment 002096370 Z47.89 [id number] DAVID BOOKER NP, S [address] [place] [address] [place] [address] 09/16/2024 13:37:40 09/16/2024 15:48:23 Essential hypertension 99999537 I10 Iron defic iency anemia 85659727 D50.9 Dyspnea on exertion 6084 5006 R06.09 Carotid ar barb stenosis 13843399 I65.23 Pain in right foot 77677 37435 84409 M79.671 Peripheral edema 8948326 00 R60.9 Hyperlipidemia 74350730 E78.5 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 552091193 E11.9 Intermitte nt claudication 52077483 I73.9 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 72997064 I70.209 Acute exac erbation of chronic obstructive pulmonary disease 353747984 J44.1 [id number] DAVID BOOKER NP, S [address] OLIVIA [address] [place] [address] 6 10/28/2024 14:00:56 10/28/2024 14:52:26 Essential hypertension 24925303 I10 Carotid ar barb stenosis 15692010 I65.23 Hyperlipidemia 99398496 E78.5 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 527000559 E11.9 Intermitte nt claudication 54961758 I73.9 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 08258148 I70.209 Progressive angina 12029 6006 I20.0 [id number] WENDY WARD NP [address] OLIVIA [address] [place] [address] 6 11/12/2024 14:30:12 11/12/2024 15:24:53 Essential hypertension 51482186 I10 Carotid ar barb stenosis 57789420 I65.23 Hyperlipidemia 67645642 E78.5 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 311032505 E11.9 Intermitte nt claudication 59323157 I73.9 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 32264848 I70.209 Congestive heart failure 69808105 I50.9 STABLE [id number] Robert Villareal MD [address] OLIVIA [address] [place] [address] 6 03/13/2025 13:00:04 03/13/2025 14:28:41 Congestive heart failure 58731312 I50.9 STABLE Essential hypertension 65345461 I10 Carotid ar barb stenosis 68233455 I65.23 Hyperlipidemia 12824900 E78.5 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 913218159 E11.9 Intermitte nt claudication 19253997 I73.9 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 28149260 I70.209 Health Concerns Section Related Observation LastModified by Organization Detai ls LastModified Time None Recorded Concern Status LastModified by Organization Details LastModified Time None Recorded Advance Directives Directive Y: Payers Insurance Date Sequence Insurance Name Policy Number Policy Osborne Covered Member ID Osborne Member ID Guarantor Name 06/10/2025 1 [employer] (MEDICARE REPLACEMENT/A DVANTAGE - HMO) Ambar C Fernandez [id number] Ambar C Fernandez 03/13/2025 1 [facility] (MEDICARE REPLACEMENT/A DVANTAGE - HMO) [place] Ambar C Fernandez [id number] Ambar C Fernandez 10/28/2024 1 [employer] (MEDICARE REPLACEMENT/A DVANTAGE - PPO) Ambar C Fernandez [id number] Ambar C Fernandez 06/10/2025 2 [place] [facility] [employer] [place]/[facility] Ambar C Fernandez [id number] Ambar C Fernandez Notes Date Note Type Note Provider Name and Address Organization Details Recorded Time 09/18/2023 text/html ROS as noted in the HPI DOS: 12.. RIGHT RING TRIGGER FINGER RELEASEPatient states she has had some pain with hand recentlyOriginal dressing was soiled from BMPatient is a resident at [facility] and nurse changed dressing; no steri strip [id number] TEETEE DAVIES, MAXIME [address] [facility],[address], [place], [address], [facility] 09/19/2023 14:41:58 09/16/2024 text/html ROS as noted in the HPI Ambar is a 74-year-old female who presents today in follow-up. The patient has a history significant for hypertension, hyperlipidemia, diabetes mellitus, congestive heart failure, and peripheral vascular disease. The patient reports that she has had ongoing BLE swelling. The patient continues to be a resident of the [facility]. The patient was hospitalized for atypical angina and ruled out for ACS. The patient recently found out her son of liver cancer. This stress seemed to precipitate her chest discomfort. The patient reports increased cough, wheezing, and sputum production. Known iron deficiency anemia, previously saw Dr. Mensah, but does not appear to have followed up regarding potential workup. The patient continues to have chronic lower extremity edema. No other complaints or concerns. The patient remains adamant against invasive angiographic evaluation of her known coronary artery disease despite chest discomfort. The patient's chest discomfort has reportedly improved since her discharge from hospital. DAVID BOOKER NP, S [address] [place] [address],[address], [place], [address], [facility] & [place] 09/16/2024 18:10:22 10/28/2024 text/html ROS as noted in the HPI Ambar is a 74-year-old female who presents today in follow-up. The patient has a history significant for hypertension, hyperlipidemia, diabetes mellitus, congestive heart failure, and peripheral vascular disease. The patient is residing at the [facility]. The patient continues to have intermittent substernal chest pain with associated shortness of breath. These occur with very minimal to no exertion. The patient has previously wishes to defer further evaluation, although she indicates that she has been feeling worse as of late. The patient has some orthopnea, and chronic lower extremity edema. The patient has very little functional capacity. The patient had soup spilled on her last Monday, specifically under left anterior cabrera. This was followed by a cold water rinse for 15 to 20 minutes per the patient. The patient was seen by the house nurse practitioner at [facility], and was reportedly started on an antibiotic earlier today, although the name of this antibiotic is unknown. DAVID BOOKER NP, S [address] [place] [address],[address], [place], [address], [facility] - [facility] & [place] 10/28/2024 15:20:22 11/12/2024 text/html Patient is here to follow up after recent direct admit for diuresis and heart cath. States that she is doing well. States feels like her feet have increased edema. Voices that she is taking her water pills and going to the bathroom frequently. WENDY WARD NP [address] [place] [address],[address], [place], [address], [facility] - [facility] - [place] & [place] 11/12/2024 16:03:54 03/13/2025 text/html Patient has come back in today as previously set up. States that she has not been watching in fluid intake. She was advised at last visit to restrict to 1500-1800ml. Weight per NH is 232lb. Patient reported 240lb but she was not sure. Denies any acute changes to her usual stat of health. WENDY WARD, MAXIME [address] [facility],[address], [place], [address], [facility] - [facility] - [place] & [place] 03/13/2025 14:34:56 OBGyn Episode No OBEpisode recorded.
--- OUTSIDE RECORDS SUMMARY | 2025-08-12 14:53 | XMS_ITS | Data Portability ---
Author Organization [facility] Address [address] [place] [address] Assessment No assessment recorded. Plan of Treatment Reminders Order Date Submit Date Provider Last Modified By Organization Details Last Modified Time Details Appointments None recorded. Lab None recorded. Referral None recorded. Procedures None recorded. Surgeries None recorded. Imaging XR, knee, 3 view 2021 [email or web address] Not available 11:37:29 XR, hip, unilateral , 2 or 3 view 2021 [email or web address] Not available 11:37:29 Medication Orders tramadol 50 mg tablet 2021 EDVIN [facility], [address] [place], [address], 14:25:47 Patient TargetsNo targets recorded. Patient InstructionsNo instructions recorded. Reason for Referral None Reported. Results Created Date Observation Date Name Description Value Unit Range Abnormal Flag Note LastModifiedBy Organization Detail LastModifiedTime 09/09/20 22 04/03/2021 CULTU RE, URINE , ROUTI NE culture, urine, routine SEE NOTE abnormal CULTU RE, URINE , ROUTI NE Micro Numbe r: [id number] Test Statu s: Final Speci men Sourc e: URINE Speci men Quali ty: Adequ ate Resul t: Great er than 100,0 00 CFU/m L of Esche nadeen a coli E.col i ----- ----- ----- - INT KOMAL AMOX/ CLAVU LANAT E S <=2 AMPIC ILLIN S <=2 AMP/S ULBAC CORRIGAN S <=2 CEFAZ JERICHO NR <=4 2 CEFEP RIOS S <=1 CEFTR IAXON E S <=1 CIPRO FLOXA EVANS R >=4 ERTAP ENEM S <=0.5 GENTA MICIN S <=1 IMIPE NEM S <=0.2 5 LEVOF LOXAC IN R >=8 NITRO FURAN TOIN S <=16 PIP/T AZOBA CTAM S <=4 TOBRA MYCIN S <=1 TRIME THOPR IM/RDZ LFA S <=20 S=Kayleigh cepti ble I=Int ermed iate R=Res istan t * = Not Teste d NR = Not Repor fede NN = See Thera py Comme nts THERA PY COMME NTS Note 1: For infec tions other than uncom plica fede UTI cause d by E. coli, K. pneum oniae or P. mirab ilis: Cefaz jericho is resis tant if KOMAL > or = 8 mcg/m L. (Dist ingui shing susce ptibl e versu s inter media te for isola gregorio with KOMAL < or = 4 mcg/m L requi res addit ional testi ng.) Note 2: For uncom plica fede UTI cause d by E. coli, K. pneum oniae or P. mirab ilis: Cefaz jericho is susce ptibl e if KOMAL <32 mcg/m L and predi cts susce ptibl e to the oral agent s cefac monica, cefdi lolis, cefpo doxim e, cefpr ozil, cefur oxime , cepha lexin and lorac arbef . NO COLLE CTION DATE RECEI KARI. WE HAVE USED THE DATE THE SPECI MEN WAS RECEI KARI BY THIS LABOR ATORY THE COLLE CTION DATE. IF THIS IS INCOR RECT, PLEAS E CONTA CT CLIEN T SERVI JUDSON. PHONE ROLDAN R: [phone] Not Available [facility] [place], [id number] 09/09/2022 11:03:00 09/09/20 22 04/03/2021 URINA LYSIS REFLE X color TNP normal TEST NOT PERFO RMED Impro per speci men submi tted. If indic ated, pleas e re-rdz bmit in a [facility] stand sheila yello w-top urine tube. Not Available [facility] JORDAN Wood, 09/09/2022 11:02:58 09/09/20 22 04/14/2022 CLIEN T EDUCA TION TRACK ING client education tracking The Requi sitio n we recei kari did not inclu de a [facility] accou nt numbe r. To preve nt delay s in testi ng and proce ssing of your order s pleas e provi de the follo wing infor matio n with every order submi tted: [facility] accou nt numbe r and accou nt name Clien t addre ss Clien t phone and fax numbe r NPI numbe r of order ing physi douglas along with the physi douglas name. NO COLLE CTION DATE RECEI KARI. WE HAVE USED THE DATE THE SPECI MEN WAS RECEI KARI BY THIS LABOR ATORY THE COLLE CTION DATE. IF THIS IS INCOR RECT, PLEAS E CONTA CT CLIEN T SERVI JUDSON. PHONE NUMBE R: [phone] Not Available [facility] JORDAN Wood, 09/09/2022 10:47:00 09/09/20 22 04/14/2022 CBC (INCL UDES DIFF/ PLT) white blood cell count 8.1 thous and/u L 3.8-10 .8 normal Not Available [facility] [place], JORDAN, 09/09/2022 10:46:58 09/09/20 22 04/14/2022 CBC (INCL UDES DIFF/ PLT) red blood cell count 4.03 kalpesh on/uL 3.80-5 .10 normal Not Available [facility] [place], JORDAN, 09/09/2022 10:46:58 09/09/20 22 04/14/2022 CBC (INCL UDES DIFF/ PLT) hemoglobin 11.3 g/dL 11.7-1 5.5 low Not Available [facility] [place], JORDAN, 09/09/2022 10:46:58 09/09/20 22 04/14/2022 CBC (INCL UDES DIFF/ PLT) hematocrit 34.5 % 35.0-4 5.0 low Not Available [facility] [place], [id number] 09/09/2022 10:46:58 09/09/20 22 04/14/2022 CBC (INCL UDES DIFF/ PLT) MCV 85.6 fL 80.0-1 00.0 normal Not Available [facility] JORDAN Wood, 09/09/2022 10:46:58 09/09/20 22 04/14/2022 CBC (INCL UDES DIFF/ PLT) MCH 28.0 pg 27.0-3 3.0 normal Not Available [facility] [place], [id number] 09/09/2022 10:46:58 09/09/20 22 04/14/2022 CBC (INCL UDES DIFF/ PLT) MCHC 32.8 g/dL 32.0-3 6.0 normal Not Available [facility] [place] [place], 09/09/2022 10:46:58 09/09/20 22 04/14/2022 CBC (INCL UDES DIFF/ PLT) RDW 14.3 % 11.0-1 5.0 normal Not Available [facility] [place] [place], 09/09/2022 10:46:58 09/09/2004/14/2022 CBC (INCL UDES DIFF/ PLT) platelet count 185 thous and/u L 140-40 0 normal Not Available [facility] [place], [address] 09/09/2022 10:46:58 09/09/20 22 04/14/2022 CBC (INCL UDES DIFF/ PLT) MPV 11.0 fL 7.5-12 .5 normal Not Available [facility] [place] [place], 09/09/2022 10:46:58 09/09/20 22 04/14/2022 CBC (INCL UDES DIFF/ PLT) absolute neutrophils 4884 cells /uL 1500-7 800 normal Not Available [facility] [place] [place], 09/09/2022 10:46:58 09/09/20 22 04/14/2022 CBC (INCL UDES DIFF/ PLT) absolute lymphocytes 2398 cells /uL 850-39 00 normal Not Available [facility] [place], [id number] 09/09/2022 10:46:58 09/09/20 22 04/14/2022 CBC (INCL UDES DIFF/ PLT) absolute monocytes 721 cells /uL 200-95 0 normal Not Available [facility] [place], [address] 09/09/2022 10:46:58 09/09/20 22 04/14/2022 CBC (INCL UDES DIFF/ PLT) absolute eosinophils 81 cells /uL 15-500 normal Not Available [facility] [place], [address] 09/09/2022 10:46:58 09/09/20 22 04/14/2022 CBC (INCL UDES DIFF/ PLT) absolute basophils 16 cells /uL 0-200 normal Not Available [facility] [place], [address] 09/09/2022 10:46:58 09/09/20 22 04/14/2022 CBC (INCL UDES DIFF/ PLT) neutrophils 60.3 % normal Not Available [facility] [place], [address] 09/09/2022 10:46:58 09/09/20 22 04/14/2022 CBC (INCL UDES DIFF/ PLT) lymphocytes 29.6 % normal Not Available [facility] [place], [address] 09/09/2022 10:46:58 09/09/20 22 04/14/2022 CBC (INCL UDES DIFF/ PLT) monocytes 8.9 % normal Not Available [facility] [place], [address] 09/09/2022 10:46:58 09/09/20 22 04/14/2022 CBC (INCL UDES DIFF/ PLT) eosinophils 1.0 % normal Not Available [facility] [place], [id number] 09/09/2022 10:46:58 09/09/20 22 04/14/2022 CBC (INCL UDES DIFF/ PLT) basophils 0.2 % normal Not Available [facility] [place], [address] 09/09/2022 10:46:58 09/09/20 22 04/14/2022 COMPR EHENS ANALI METAB OLIC PANEL glucose 119 mg/dL 65-99 high Fasti ng refer ence inter jensen For someo ne witho ut known diabe gregorio, a gluco se value betwe en 100 and 125 mg/dL is consi stent with predi abete s and shoul d be confi rmed with a follo w-up test. Not Available [facility] [place], [address] 09/09/2022 10:46:56 09/09/20 22 04/14/2022 COMPR EHENS ANALI METAB OLIC PANEL urea nitrogen (BUN) 25 mg/dL 7-25 normal Not Available [facility] [place], [address] 09/09/2022 10:46:56 09/09/20 22 04/14/2022 COMPR EHENS ANALI METAB OLIC PANEL creatinine 1.86 mg/dL 0.60-0 .93 high For patie nts >49 years of age, the refer ence limit for Creat inine is appro ximat octavio 13% highe r for peopl e ident ified as Afric an-Am rohini n. Not Available [facility] [place], [address] 09/09/2022 10:46:56 09/09/20 22 04/14/2022 COMPR EHENS ANALI METAB OLIC PANEL eGFR non-afr. nauruan 26 mL/mi n/1.7 3m2 > or = 60 low Not Available [facility] [place], [address] 09/09/2022 10:46:56 09/09/20 22 04/14/2022 COMPR EHENS ANALI METAB OLIC PANEL eGFR 31 mL/mi n/1.7 3m2 > or = 60 low Not Available [facility] [place], [address] 09/09/2022 10:46:56 09/09/20 22 04/14/2022 COMPR EHENS ANALI METAB OLIC PANEL BUN/creatini ne ratio 13 (calc ) 6-22 normal Not Available [facility] [place], [address] 09/09/2022 10:46:56 09/09/20 22 04/14/2022 COMPR EHENS ANALI METAB OLIC PANEL sodium 131 mmol/ L 135-14 6 low Not Available [facility] [place], [address] 09/09/2022 10:46:56 09/09/20 22 04/14/2022 COMPR EHENS ANALI METAB OLIC PANEL potassium 4.7 mmol/ L 3.5-5. 3 normal Not Available [facility] [place], [address] 09/09/2022 10:46:56 09/09/20 22 04/14/2022 COMPR EHENS ANALI METAB OLIC PANEL chloride 94 mmol/ L 98-110 low Not Available [facility] [place], [address] 09/09/2022 10:46:56 09/09/20 22 04/14/2022 COMPR EHENS ANALI METAB OLIC PANEL carbon dioxide 30 mmol/ L 20-32 normal Not Available [facility] [place], [address] 09/09/2022 10:46:56 09/09/20 22 04/14/2022 COMPR EHENS ANALI METAB OLIC PANEL calcium 9.4 mg/dL 8.6-10 .4 normal Not Available [facility] [place], [address] 09/09/2022 10:46:56 09/09/20 22 04/14/2022 COMPR EHENS ANALI METAB OLIC PANEL protein, total 6.6 g/dL 6.1-8. 1 normal Not Available [facility] [place], [address] 09/09/2022 10:46:56 09/09/20 22 04/14/2022 COMPR EHENS ANALI METAB OLIC PANEL albumin 3.7 g/dL 3.6-5. 1 normal Not Available [facility] [place], [address] 09/09/2022 10:46:56 09/09/20 22 04/14/2022 COMPR EHENS ANALI METAB OLIC PANEL globulin 2.9 g/dL_ (calc ) 1.9-3. 7 normal Not Available [facility] [place], [address] 09/09/2022 10:46:56 09/09/20 22 04/14/2022 COMPR EHENS ANALI METAB OLIC PANEL albumin/glob ulin ratio 1.3 (calc ) 1.0-2. 5 normal Not Available [facility] [place], [address] 09/09/2022 10:46:56 09/09/20 22 04/14/2022 COMPR EHENS ANALI METAB OLIC PANEL bilirubin, total 0.5 mg/dL 0.2-1. 2 normal Not Available [facility] [place], [address] 09/09/2022 10:46:56 09/09/20 22 04/14/2022 COMPR EHENS ANALI METAB OLIC PANEL alkaline phosphatase 152 U/L 37-153 normal Not Available [facility] [place], [address] 09/09/2022 10:46:56 09/09/20 22 04/14/2022 COMPR EHENS ANALI METAB OLIC PANEL AST 13 U/L 10-35 normal Not Available [facility] [place], [address] 09/09/2022 10:46:56 09/09/20 22 04/14/2022 COMPR EHENS ANALI METAB OLIC PANEL ALT 8 U/L 6-29 normal Not Available [facility] [place], [id number] 09/09/2022 10:46:56 Result Notes None recorded. Problems Name Problem SNOMED Code Status Onset Date Resolution Date Notes Provider Name and Address Organization Details Recorded Time Secondar y diabetes mellitus 3794846 Active 2018 Problem Code: E08.41; Problem Code Type: ICD-10; Not Available [facility] 22:07:40 Mixed hyperlip idemia 564188220 Active 2018 Problem Code: E78.2; Problem Code Type: ICD-10; Not Available [facility] 22:07:40 Mild recurren t major depressi on 63819549 Active 2018 Problem Code: F33.0; Problem Code Type: ICD-10; Not Available [facility] 22:07:41 Hyperten sive disorder 56628733 Active 2018 Problem Code: I10; Problem Code Type: ICD-10; Not Available [facility] 22:07:41 Acute exacerba tion of chronic obstruct anali pulmonar y disease 295483682 Active 2018 Problem Code: J44.1; Problem Code Type: ICD-10; Not Available [facility] 2 22:07:42 Cirrhosi s of liver 09731231 Completed 201804/06/2021 Problem Code: K74.60; Problem Code Type: ICD-10; Not Available [facility] 2 22:07:42 Cyst of ovary 57247936 Completed 201808/11/2019 Problem Code: N83.201; Problem Code Type: ICD-10; Not Available [facility] 2 22:07:44 Chest pain 96593110 Completed 201808/11/2019 Problem Code: R07.89; Problem Code Type: ICD-10; Not Available [facility] 2 22:07:45 Pain in right knee Completed 201808/11/2019 Problem Code: M25.561; Problem Code Type: ICD-10; Not Available [facility] 2 22:07:43 Low back pain 808843181 Active 2018 Problem Code: M54.5; Problem Code Type: ICD-10; Not Available [facility] 2 22:07:43 Gastroes ophageal reflux disease without esophagi tis 364827600 Active 2018 Not Available [facility] 2 22:07:51 Pain in right knee Completed 201808/11/2019 Problem Code: M25.561; Problem Code Type: ICD-10; Not Available [facility] 2 22:07:43 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 517400646 Active 2018 Problem Code: E11.41; Problem Code Type: ICD-10; Not Available [facility] 2 22:07:40 Acute bronchit is 40851216 Completed 201808/11/2019 Problem Code: J20.9; Problem Code Type: ICD-10; Not Available [facility] 2 22:07:41 Cough 68212585 Completed 201808/11/2019 Problem Code: R05; Problem Code Type: ICD-10; Not Available [facility] 2 22:07:45 Body mass index 40+ - severely obese 522194244 Active 2018 Not Available [facility] 2 22:07:51 Current drug user 480987053 Completed 201808/11/2019 Problem Code: Z79.899; Problem Code Type: ICD-10; Not Available [facility] 2 22:07:53 Divertic ulitis of large intestin e without complica tion 157421938 Active 2018 Problem Code: K57.32; Problem Code Type: ICD-10; Not Available [facility] 2 22:07:42 Dysuria 80306534 Completed 201801/05/2021 Problem Code: R30.0; Problem Code Type: ICD-10; Not Available [facility] 2 22:07:46 Dysuria 54590388 Completed 201801/05/2021 Problem Code: R30.0; Problem Code Type: ICD-10; Not Available [facility] 2 22:07:46 Dehydrat ion 55105965 Active 2019 Problem Code: E86.0; Problem Code Type: ICD-10; Not Available [facility] 2 22:07:40 Bronchop neumonia 851101341 Active 2019 Problem Code: J18.0; Problem Code Type: ICD-10; Not Available [facility] 2 22:07:41 Pyrexia of unknown origin 0885860 Completed 201901/05/2021 Problem Code: R50.9; Problem Code Type: ICD-10; Not Available [facility] 2 22:07:46 Hypomagn esemia 100570389 Completed 201901/05/2021 Problem Code: E83.42; Problem Code Type: ICD-10; Not Available [facility] 2 22:07:40 Tobacco dependen ce caused by cigarett es 96896898114 743442 Active 2019 Problem Code: F17.210; Problem Code Type: ICD-10; Not Available [facility] 2 22:07:40 Chronic obstruct anali pulmonar y disease with acute lower respirat ory infectio n 323206739 Active 2019 Problem Code: J44.0; Problem Code Type: ICD-10; Not Available [facility] 2 22:07:42 Asthenia 27440513 Active 2019 Problem Code: R53.1; Problem Code Type: ICD-10; Not Available [facility] 2 22:07:46 Fall on same level from slipping , tripping or stumblin g Active 2019 Not Available [facility] 22:07:48 Abnormal finding on evaluati on procedur e 284149047 Active 2019 Not Available [facility] 22:07:49 Chronic obstruct anali pulmonar y disease 61806864 Active 2019 Problem Code: J44.9; Problem Code Type: ICD-10; Not Available [facility] 2 22:07:42 Periodon kevin disease 5493055 Completed 201904/06/2021 Problem Code: K05.6; Problem Code Type: ICD-10; Not Available [facility] 2 22:07:42 Cataract 107578700 Active 2019 Not Available [facility] 2 22:07:41 Generali zed osteoart hritis 609153699 Active 2019 Problem Code: M15.9; Problem Code Type: ICD-10; Not Available [facility] 2 22:07:43 On examinat ion - gait Active 2019 Not Available [facility] 22:07:45 Foot joint - soft tissue swelling 026858896 Completed 201901/05/2021 Not Available [facility] 22:07:43 Ankle joint effusion 422858822 Active 2019 Not Available [facility] 22:07:43 Polyalgi a 080694463 Completed 201901/05/2021 Problem Code: M79.89; Problem Code Type: ICD-10; Not Available [facility] 2 22:07:44 Localize d edema 739441118 Completed 201901/05/2021 Problem Code: R60.0; Problem Code Type: ICD-10; Not Available [facility] 22:07:47 Dysuria 71179208 Active 2019 Problem Code: R30.0; Problem Code Type: ICD-10; Not Available [facility] 22:07:46 Influenz a vaccine needed 53844604082 Active 2019 Problem Code: Z23; Problem Code Type: ICD-10; Not Available [facility] 22:07:49 Obstruct anali sleep apnea syndrome 02324910 Active 2019 Problem Code: G47.33; Problem Code Type: ICD-10; Not Available [facility] 22:07:41 Pyrexia of unknown origin 6675499 Active 2019 Problem Code: R50.9; Problem Code Type: ICD-10; Not Available [facility] 22:07:46 Chronic obstruct anali pulmonar y disease with acute lower respirat ory infectio n 145215814 Completed 201901/05/2021 Problem Code: J44.0; Problem Code Type: ICD-10; Not Available [facility] 22:07:51 Urinary tract infectio us disease 49127755 Active 2020 Problem Code: N39.0; Problem Code Type: ICD-10; Not Available [facility] 22:07:54 Vitamin D deficien cy 78291587 Active 2020 Problem Code: E55.9; Problem Code Type: ICD-10; Not Available [facility] 2 22:07:40 Current drug user 288638747 Active 2020 Problem Code: Z79.899; Problem Code Type: ICD-10; Not Available [facility] 22:07:52 Polyalgi a 899233833 Active 2020 Problem Code: M79.89; Problem Code Type: ICD-10; Not Available [facility] 2 22:07:44 Eruption 010295024 Active 2020 Problem Code: R21; Problem Code Type: ICD-10; Not Available [facility] 22:07:45 Localize d edema 286941183 Active 2020 Problem Code: R60.0; Problem Code Type: ICD-10; Not Available [facility] 22:07:47 COVID-19 796963032 Active 2020 Problem Code: U07.1; Problem Code Type: ICD-10; Not Available [facility] 22:07:48 Influenz a vaccine needed 98431024873 06 Completed 202002/01/2022 Problem Code: Z23; Problem Code Type: ICD-10; Not Available [facility] 22:07:50 Neoplasm of uncertai n behavior of skin 14891037 Active 2021 Problem Code: D48.5; Problem Code Type: ICD-10; Not Available [facility] 22:07:40 Ganglion of wrist 831589810 Active 2021 Problem Code: M67.432; Problem Code Type: ICD-10; Not Available [facility] 22:07:44 Snoring 93416003 Active 2021 Problem Code: R06.83; Problem Code Type: ICD-10; Not Available [facility] 22:07:55 General examinat ion of patient Active 2021 Not Available [facility] 22:07:48 Fall from chair Active 2021 Problem Code: W07.XXXA ; Problem Code Type: ICD-10; Not Available [facility] 22:07:57 Low blood pressure 19842419 Active 2021 Problem Code: I95.9; Problem Code Type: ICD-10; Not Available [facility] 22:07:41 Chronic kidney disease stage 3B 669212084 Active 2021 Problem Code: N18.32; Problem Code Type: ICD-10; Not Available [facility] 22:07:54 Notes:*Problem Name: Patient 's other noncompliance with medication regimen *Problem Status: Chronic *Comments: *Problem Code: Z91.14 *Problem Code Type: ICD-10 *Note Date: 10/26/2021 *Problem Name: Patient's other noncompliance with medication regimen *Problem Status: Chronic *Comments: *Problem Code: Z91.14 *Problem Code Type: ICD-10 *Note Date: 12/09/2019 *Problem Name: Patient's other noncompliance with medication regimen *Problem Status: Chronic *Comments: *Problem Code: Z91.14 *Problem Code Type: ICD-10 *Note Date: 04/01/2020 *Problem Name: Patient's other noncompliance with medication regimen *Problem Status: Chronic *Comments: *Problem Code: Z91.14 *Problem Code Type: ICD-10 *Note Date: 10/06/2020 Problem Notes None recorded. Procedures Surgical History Date Name Laterality Status Provider Name and Address Organization Details Recorded Time 12/04/19 19 hernia repair completed Not Available [facility] 2021 22:56:15 12/04/19 19 hysterectomy completed Not Available [facility] 022 22:56:15 12/04/19 19 ligation of bilateral fallopian tubes completed Not Available [facility] 06/14/2022 22:56:15 Imaging Results None recorded. Procedure Notes None recorded. Medical Equipment None Reported. Allergies Allergen ID Allergen Name Allergen Category Reaction Reaction Severity Criticality Documentation Date Start Date Code Code System Note Provider Name and Address Organization Details Recorded Time 28760 Product containin g penicilli n (product) medicatio n Not available Not available Not available 06/14/2022 08285 8001 SNOMED Regina stoddard [facility] [employer] 3 10:02:07 11227 Tylox medicatio n Not available Not available Not available 06/14/2022 42869 5 RxNorm Not Available [facility] 2 22:56:11 91095 walnut allergeni c extract food Not available Not available Not available 06/14/2022 38979 0 RxNorm Not Available [facility] 2 22:56:11 54583 acetamino phen / oxycodone medicatio n Not available Not available Not available 06/14/2022 18632 3 RxNorm Not Available [facility] 2 22:56:11 69823 Januvia medicatio n Not available Not available Not available 06/14/2022 07727 6 RxNorm Not Available [facility] 2 22:56:11 70963 oxycodone medicatio n Not available Not available Not available 06/14/2022 7804 RxNorm Not Available [facility] 2 22:56:12 Medications Name Sig Start Date Stop Date Status Note LastModified by Organization Details LastModified Time furosemide 40 mg tablet TAKE 1 TABLET TWICE DAILY active Not Available Not Available No t Available Humalog Mix 75-25 (U-100) Insulin 100 unit/mL subcutaneou s suspension 15 units tid, before meals 02/15 completed Not Available Not Available Not Available venlafaxine ER 37.5 mg capsule,ext ended release 24 hr TAKE 1 CAPSULE ONE TIME DAILY WITH FOOD active Not Available Not Available No t Available potassium chloride ER 10 mEq capsule,ext ended release TAKE 1 CAPSULE ONE TIME DAILY WITH FOOD active Not Available Not Available No t Available venlafaxine ER 75 mg capsule,ext ended release 24 hr take 1 capsule (75 mg) by oral route once daily 05/20 completed Not Available Not Available Not Available gabapentin 600 mg tablet TAKE 2 TABLETS TWICE DAILY 2021 active Not Available Not Available Not Avai lable blood-gluco se meter Use to check glucose QID 2019 active Not Available Not Available Not Avai lable cetirizine 10 mg tablet TAKE 1 TABLET EVERY DAY active Not Available Not Available No t Available oxybutynin chloride ER 10 mg tablet,exte nded release 24 hr TAKE 1 TABLET EVERY DAY active Not Available Not Available No t Available azithromyci n 250 mg tablet 07/19 completed Not Available Not Available Not Available tizanidine 4 mg tablet 1 po q hs 05/25 completed Not Available Not Available Not Available albuterol sulfate 1.25 mg/3 mL solution for nebulizatio n INHALE THE CONTENTS OF 1 VIAL VIA NEBULIZER THREE TIMES DAILY active Not Available Not Available No t Available hydrocodone 5 mg-acetamin ophen 325 mg tablet take 1 tablet by oral route every 4 hours as needed for pain 08/07 completed Not Available Not Available Not Available Nicoderm CQ 21 mg/24 hr daily transdermal patch apply 1 patch (21 mg) by transderm al route once daily 12/15 completed Not Available Not Available Not Available lisinopril 20 mg tablet TAKE 1 TABLET (20 MG) BY ORAL ROUTE ONCE DAILY active Not Available Not Available No t Available famotidine 40 mg tablet TAKE 1 TABLET (40 MG) BY ORAL ROUTE 2 TIMES PER DAY 2021 active Not Available Not Available Not Avai lable glipizide ER 5 mg tablet, extended release 24 hr 1-2 tablets daily 12/04 completed Not Available Not Available Not Available naproxen 250 mg tablet take 1 tablet (250 mg) by oral route 2 times per day with food 10/03 completed Not Available Not Available Not Available Lantus U-100 Insulin 100 unit/mL subcutaneou s solution 45 units at night SQ 2021 active Not Available Not Available Not Avai lable metronidazo le 500 mg tablet take 1 tablet (500 mg) by oral route 3 times per day 10/10 completed Not Available Not Available Not Available dextrometho rphan-guaif enesin 10 mg-100 mg/5 mL oral syrup take 10 millilite rs by oral route every 4 hours as needed 06/20 completed Not Available Not Available Not Available ciprofloxac in 500 mg tablet take 1 tablet (500 mg) by oral route 2 times per day for UTI 04/05 completed Not Available Not Available Not Available tramadol 50 mg tablet Take 1 tablet every 8 hours by oral route for 3 days. active Not Available Not Available No t Available triamcinolo ne acetonide 0.1 % topical cream apply a thin layer to the affected area(s) by topical route 2 times per day active Not Available Not Available No t Available spironolact one 25 mg tablet TAKE 1 TABLET EVERY DAY FOR LEG SWELLING active Not Available Not Available No t Available amoxicillin 500 mg tablet take 1 tablet (500 mg) by oral route every 12 hours for 10 days 04/01 completed Not Available Not Available Not Available ciclopirox 8 % topical solution apply to the affected area(s) by topical route once daily preferabl y at bedtime or 8 hours before washing 01/05 completed Not Available Not Available Not Available nadolol 20 mg tablet take 1 tablet (20 mg) by oral route once daily active Not Available Not Available No t Available Zofran 4 mg tablet take 2 tablets (8 mg) by oral route 2 times per day 04/01 completed Not Available Not Available Not Available metoclopram jennifer 5 mg tablet take 1 tablet (5 mg) by oral route 2 times per day 06/30 completed Not Available Not Available Not Available benzonatate 100 mg capsule Take 1 capsule(s ) by mouth tid prn cough 2019 active Not Available Not Available Not Avai lable doxycycline monohydrate 100 mg capsule take 1 capsule (100 mg) by oral route 2 times per day for 10 days 05/03 completed Not Available Not Available Not Available Humulin R Regular U-100 Insulin 100 unit/mL injection solution sliding scale tid and hs 200-250 5 units; 251-300 8 units; 301-350 11 units; 351-400 14 units 12/04 completed Not Available Not Available Not Available pantoprazol e 40 mg tablet,lavinia yed release TAKE 1 TABLET EVERY DAY active Not Available Not Available No t Available fluoxetine 20 mg tablet 3 tablets po every morning 04/01 completed Not Available Not Available Not Available triamcinolo ne acetonide 0.1 % topical ointment active Not Available Not Available Not Available ranitidine 150 mg tablet one pill po bid 10/22 completed Not Available Not Available Not Available lisinopril 10 mg tablet take 1 tablet (10 mg) by oral route once daily 2019 active Not Available Not Available Not Avai lable montelukast 10 mg tablet take 1 tablet (10 mg) by oral route once daily in the evening active Not Available Not Available No t Available Tussin DM 10 mg-100 mg/5 mL oral liquid take 10 millilite rs by oral route every 4 hours as needed for cough 01/05 completed Not Available Not Available Not Available furosemide 20 mg tablet 1 po daily 2019 active Not Available Not Available Not Avai lable nystatin 100,000 unit/gram topical powder APPLY TOPICALLY TO THE AFFECTED AREA(S) TWICE A DAY NEEDED active Not Available Not Available No t Available ibuprofen 600 mg tablet take 1 tablet (600 mg) by oral route 3 times per day with food 12/08 completed Not Available Not Available Not Available levofloxaci n 500 mg tablet take 1 tablet (500 mg) by oral route every 24 hours x 10 days 01/05 completed Not Available Not Available Not Available methylpredn isolone 4 mg tablets in a dose pack 12/15 completed Not Available Not Available Not Available albuterol sulfate HFA 90 mcg/actuati on aerosol inhaler INHALE 1 TO 2 PUFFS EVERY 4 TO 6 HOURS NEEDED FOR COUGH OR WHEEZE active Not Available Not Available No t Available Cipro 250 mg tablet take 1 tablet (250 mg) by oral route every 12 hours 08/07 completed Not Available Not Available Not Available fluoxetine 20 mg capsule 3 capsules po qam 12/04 completed Not Available Not Available Not Available fluticasone propionate 50 mcg/actuati on nasal spray,suspe nsion USE 1 SPRAY IN EACH NOSTRIL TWICE DAILY active Not Available Not Available No t Available ropinirole 4 mg tablet TAKE 1 TABLET AT BEDTIME active Not Available Not Available No t Available Novolog Mix 70-30 U-100 Insulin 100 unit/mL subcutaneou s solution 20 units before breakfast , 25 units before the noon meal and 25 units before the evening meal. 09/13 completed Not Available Not Available Not Available Spiriva with HandiHaler 18 mcg and inhalation capsules USE 2 INHALATIO NS TO INHALE THE CONTENTS OF 1 CAPSULE EVERY DAY active Not Available Not Available No t Available nitrofurant oin monohydrate /macrocryst als 100 mg capsule take 1 capsule (100 mg) by oral route 2 times per day with food for 10 days for UTI 02/01 completed Not Available Not Available Not Available BD Insulin Syringe Ultra-Fine 0.5 mL 30 gauge x 1/2 use tid, before meals 08/12 completed Not Available Not Available Not Available Insulin Syringe 0.5 mL 29 gauge x 1/2 Use to inject insulin SQ as directed 2019 active Not Available Not Available Not Avai lable cholecalcif ade (vitamin D3) 1,250 mcg (50,000 unit) capsule TAKE 1 CAPSULE TWICE A MONTH 2021 active Not Available Not Available Not Avai lable Lantus Solostar U-100 Insulin 100 unit/mL (3 mL) subcutaneou s pen INJECT 45 UNITS SUBCUTANE OUSLY AT NIGHT active Not Available Not Available No t Available Humalog Mix 75-25 KwikPen U-100 insulin 100 unit/mL subcutaneou s pen inject by subcutane ous route 25 units TID with meals 04/01 completed Not Available Not Available Not Available diclofenac 1 % topical gel APPLY 2 GRAMS TOPICALLY TO THE AFFECTED AREA(S) 4 TIMES PER DAY active Not Available Not Available No t Available Suprep Bowel Prep Kit 17.5 gram-3.13 gram-1.6 gram oral solution active Not Available Not Available Not Available roflumilast 500 mcg tablet TAKE 1 TABLET EVERY DAY active Not Available Not Available No t Available Accu-Chek Anita Plus test strips TEST BLOOD SUGAR THREE TIMES DAILY active Not Available Not Available No t Available Lancets,Ult ra Thin 26 gauge Use to check glucose QID 2019 active Not Available Not Available Not Avai lable Breo Ellipta 100 mcg-25 mcg/dose powder for inhalation INHALE 1 PUFF ONE TIME DAILY AT THE SAME TIME EACH DAY active Not Available Not Available No t Available Konsyl Sugar-Free 6 gram/6 gram oral powder I cap in 8 oz water daily 2018 active Not Available Not Available Not Avai lable tiotropium bromide 2.5 mcg/actuati on mist for inhalation inhale 2 puffs (5 mcg) by inhalatio n route once daily at the same time each day 2019 active Not Available Not Available Not Avai lable Droplet Pen Needle 31 gauge x 1/4 Use to inject insulin daily active Not Available Not Available No t Available Lactobacill us acidophilus and rhamnosus 15 billion cell capsule 04/01 completed Not Available Not Available Not Available flash glucose sensor kit Use daily as directed. 2019 active Not Available Not Available Not Avai lable Novolin 70-30 FlexPen U-100 Insulin 100 unit/mL (70-30) subcutaneou s INJECT 25 UNITS SUBCUTANE OUSLY THREE TIMES DAILY WITH MEALS active Not Available Not Available No t Available Vitals Date Recorded Body weight Oxygen saturation Oxygen saturation in Arterial blood by Pulse oximetry Heart rate Systolic And Diastolic Provider Name and Address Organization Details Last Updated DateTime 2 028687. 94 g 97 % 97 % 74 /min 116/63 mm[Hg] TILA ESPOSITO [employer] 2 14:01:06 Social History Question Answer Notes LastModified by Organizat [employer] Details LastModified Time Tobacco Smoking Status Current Every Day Smoker Regina William stoddard [employer]. 11/22/2022 10:02:43 What Is Your Current Pack Years? 30ormorepacky ears [email or web address] Information not available 07/19/2022 How Much Tobacco Do You Smoke? 2 PPD [email or web address] Information not available 07/19/2022 Sex: Female Functional Status Question Answer Note LastModified by Organizat ion Details LastModified Time Do you use any illicit or recreational drugs? No [email or web address] Information not available 07/19/2022 Mental Status None recorded. Family History Relationship Description Onset Age of this Age Resolved Age Notes LastModified by Organization Details LastModified Time Unspecified Relation Family history of malignant neoplasm [email or web address] Not available 2022 10:02:24 Unspecified Relation Family history of breast cancer [email or web address] Not available 2022 10:02:27 Unspecified Relation Family history of Hypertension [email or web address] Not available 10:02:31 Father No current problems or disability [email or web address] Not available 11/22 10:02:32 Mother No current problems or disability [email or web address] Not available 11/22 10:02:32 Medical History Condition Response Diabetes Y Obesity Y Breast Cancer Y Hypertension Y COPD Y Kidney Disease Y Gynecological HistoryNo gynecological history recorded. Obstetrics History GPAL:G 0 P 0 0 0 0 Immunizations Vaccine Type Date Status Note Provider Nam e and Address Organization Details Recorded Time COVID-19 vaccine, vector-nr, rS-ChAdOx1, PF, 0.5 mL 1 completed Not Available [facility] 06/14/2022 23:39:31 Influenza, split virus, quadrivalent, PF 1 completed Not Available [facility] 06/14/2022 23:39:31 Influenza, split virus, trivalent, preservative 9 completed Not Available [facility] 06/14/2022 23:39:31 Influenza, split virus, quadrivalent, preservative 0 completed Not Available [facility] 06/14/2022 23:39:31 Past Encounters Encounter ID Performer Location Encounter Start Date Encounter Closed Date Diagnosis/Indication Diagnosis SNOMED-CT Code Diagnosis ICD10 Code Diagnosis IMO Codes Diagnosis Note [id number] Anya Munson APRN [place] [id number] 07/19/2022 13:38:04 07/19/2022 15:12:20 Pain of right hip joint 8244273639 41939 M25.551 Pain of le ft hip joint 9784074501 05179 M25.552 rest, alternate Heat/ICE, f/u if worsen, will call with xray results Pain of le ft knee joint 4692510619 71753 M25.562 Health Concerns Section Related Observation LastModified by Organization Detai ls LastModified Time None Recorded Concern Status LastModified by Organization Details LastModified Time None Recorded Advance Directives Directive None Recorded Payers Insurance Date Sequence Insurance Name Policy Number Policy Osborne Covered Member ID Osborne Member ID Guarantor Name 07/30/2022 1 [employer] (MEDICARE REPLACEMENT/A DVANTAGE - PPO) Ambar C Fernandez [id number] Ambar Fernandez 11/19/2022 [place] [employer] [place] - [facility] Ambar C Fernandez [id number] Ambar Fernandez 08/07/2022 2 MEDICAID-[facility] - FFS/TRADITION AL Ambar Fernandez [id number] Ambar Fernandez Notes Date Note Type Note Provider Name and Address Organization Details Recorded Time 07/19/2022 text/html Musculoskeletal PainReported by PatientHPIFor quality, patient reportsdull. For location, patient reportspain is not radiating,left hip, andleft knee. For context, patient reportstrauma. For associated symptoms, patient reportsno fever. For adls affected, patient reportswalking. For duration, (few days after fall from kitchen chair).ROS as noted in the HPI Anya Munson APRN [address] [place], [address], [facility] [employer] 07/19/2022 14:33:54 OBGyn Episode No OBEpisode recorded.
--- OUTSIDE RECORDS SUMMARY | 2025-08-12 14:53 | XMS_ITS | Clinical Summary ---
Author Organization Healthcare Address [address] [place] [address] Care Team Providers Care Workforce Development Assistant Name Role Phone Tonya Freeman APRN Primary Care Provider + [phone] Social History Tobacco Use Types Packs/Day Years Used Date Smoking Tobacco: Never Assessed Comments Unknown Sex and Gender Information Value Date Recorded Sex Assigned at Not on file Legal Sex Female 7:29 PM EDT Gender Identity Not on file Sexual Orientation Not on file Plan of Treatment Not on file Care Teams Workforce Development Assistant Relationship Specialty Start Date End Date Tonya Freeman APRN [address] [place] [address] PCP - General 02/19/21
--- OUTSIDE RECORDS SUMMARY | 2025-08-12 14:53 | XMS_ITS | Clinical Summary ---
Author Organization [facility] Address [address] [place] [address] Phone Care Team Providers Care Key Account Director Name Role Phone Marylou Werner MD [ ] Conditions or Problems Problem Name Problem Code Onset Date Status Entry Date Provider Comment Standard Description Annotate GERD 634383116 (SNOMED CT) 12/09 Active 12/09 Joshua Schmid MD Gastroesophageal reflux disease Tobacco abuse 50415577 (SNOMED CT) 12/09 Active 12/09 Joshua Schmid MD Tobacco dependence syndrome Diarrhea 23952305 (SNOMED CT) 12/08 Active 12/08 Chantell White Diarrhea Diabetes mellitus type II 77193997 (SNOMED CT) 12/08 Active 12/08 Chantell White Type 2 diabetes mellitus Acute pulmonary blastomycosis 412085718 (SNOMED CT) 12/08 Active 12/08 hCantell White Acute pulmonary blastomycosis Chronic pulmonary blastomycosis 610302886 (SNOMED CT) 12/08 Active 12/08 Chantell White Chronic pulmonary blastomycosis Medications Medication Instructions Start Date Stop Date Generic Name NDC Provider GLIPIZIDE 10 MG TABS take twice daily 05/09 GLIPIZIDE 69054393048 Joshua Schmid MD ITRACONAZOLE 100 MG CAPS Take two by mouth twice daily. 8 ITRACONAZOLE 55703789327 Joshua Schmid MD ITRACONAZOLE 100 MG CAPS take 2 po bid ITRACONAZOLE 87400494535 Joshua Schmid MD ITRACONAZOLE 100 MG CAPS Take two by mouth twice daily. 0/10 ITRACONAZOLE 42677035735 Joshua Schmid MD LEVOTHYROXINE SODIUM 50 MCG TABS daily 12/22 LEVOTHYROXINE SODIUM 25069450757 Tanisha L GNP OMEPRAZOLE 20 MG TBEC twice daily 12/22 OMEPRAZOLE 70553040051 Tanisha L SYMBICORT 80-4.5 MCG/ACT AERO 2 puffs twice daily BUDESONIDE-FORMO TEROL FUMARATE 34287556666 Marylou Martinez RN SPIRIVA HANDIHALER 18 MCG CAPS daily TIOTROPIUM BROMIDE MONOHYDRATE 07396938943 Marylou Martinez RN SINGULAIR 10 MG TABS daily MONTELUKAST SODIUM 00881372550 Marylou Martinez RN FLONASE ALLERGY RELIEF 50 MCG/ACT SUSP daily FLUTICASONE PROPIONATE 16530711826 Marylou Martinez RN DALIRESP 500 MCG TABS daily ROFLUMILAST 19929836197 Marylou Martinez RN DUTOPROL 25-12.5 MG ORAL TABLET EXTENDED RELEASE 24 HOUR daily METOPROLOL-HYDRO CHLOROTHIAZIDE 36367295788 Marylou Martinez RN REQUIP 4 MG ORAL TABLET 4 mg daily ROPINIROLE HCL 41075756283 Marylou Martinez RN KLOR-CON 10 10 MEQ CR-TABS twice daily POTASSIUM CHLORIDE 09158741425 Marylou Martinez RN GNP OMEPRAZOLE 20 MG TBEC twice daily 12/22 OMEPRAZOLE 61754544199 Marylou Martinez RN METOCLOPRAMIDE HCL 5 MG TABS one tab three times daily METOCLOPRAMIDE HCL 74411679219 Marylou Martinez RN PIOGLITAZONE HCL-METFORMIN HCL 15-850 MG TABS twice daily PIOGLITAZONE HCL-METFORMIN HCL 45812543946 Marylou Martinez RN MOBIC 15 MG ORAL TABLET daily MELOXICAM 43860927909 Marylou Martinez RN LISINOPRIL 20 MG TABS daily LISINOPRIL 20871875736 Marylou Martinez RN LEVOTHYROXINE SODIUM 50 MCG TABS daily 0 12/22 LEVOTHYROXINE SODIUM 60990692108 Marylou Martinez RN FLORICAL TABS 60mg daily SOD FLUORIDE-CA CARBONATE TABS 93082551525 Marylou Martinez RN GLIPIZIDE 10 MG TABS take twice daily 0 05/09 GLIPIZIDE 84076265273 Angela A GABAPENTIN 600 MG TABS take 2 tablets twice daily GABAPENTIN 71224876558 Angela A FUROSEMIDE 40 MG TABS take once daily as needed FUROSEMIDE 68946353931 Angela A ITRACONAZOLE 100 MG CAPS 1 po qid 0 3 ITRACONAZOLE 08830513900 Angela A DALIRESP 500 MCG TABS 1 po qd 0 3 ROFLUMILAST 45523229687 Angela A PROAIR HFA 108 (90 Base) MCG/ACT INHALATION AEROSOL SOLUTION 0 3 ALBUTEROL SULFATE 81082283650 Angela A SPIRIVA HANDIHALER 18 MCG CAPS 1 po qd 0 3 TIOTROPIUM BROMIDE MONOHYDRATE 36313768033 Angela A SYMBICORT 80-4.5 MCG/ACT AERO 0 3 BUDESONIDE-FORMO TEROL FUMARATE 02566344054 Angela A DOXYCYCLINE MONOHYDRATE 100 MG CAPS 0 3 DOXYCYCLINE MONOHYDRATE 88851961482 Angela A GLIPIZIDE 10 MG TABS 1 po bid 0 3 GLIPIZIDE 55916211525 Angela A ACTOPLUS MET 15-850 MG TABS 1 po bid 0 3 PIOGLITAZONE HCL-METFORMIN HCL 65133533794 Angela A OXYBUTYNIN CHLORIDE ER 10 MG [id number] 1 po qd 0 3 OXYBUTYNIN CHLORIDE 94835543596 Angela A DELTASONE 20 MG ORAL TABLET 0 3 PREDNISONE 89344369989 Angela A FUROSEMIDE 40 MG TABS 1 po bid 0 3 FUROSEMIDE 61849147678 Angela A METOPROLOL TARTRATE 25 MG TABS 1 po qd 0 3 METOPROLOL TARTRATE 95775683182 Angela A AZITHROMYCIN 250 MG TABS 0 3 AZITHROMYCIN 18832323045 Angela A ANTI-DIARRHEAL 2 MG CAPS 0 3 LOPERAMIDE HCL 30552022779 Angela A FUROSEMIDE 40 MG TABS 1 po qd 0 3 FUROSEMIDE 59860180588 Angela A GABAPENTIN 600 MG TABS 1 po qid 0 3 GABAPENTIN 21734684572 Angela A LISINOPRIL 20 MG TABS 1 po qd 0 3 LISINOPRIL 08305862768 Angela A [facility] OMEPRAZOLE 20.6 (20 Base) MG ORAL CAPSULE DELAYED RELEASE 1 po bid 0 3 OMEPRAZOLE MAGNESIUM 72802577831 Angela A FLUOXETINE HCL (PMDD) 20 MG ORAL CAPSULE 1 po tid 0 3 FLUOXETINE HCL (PMDD) 25763348919 Angela A MONTELUKAST SODIUM 10 MG TABS 1 po qd 0 3 MONTELUKAST SODIUM 78306161635 Angela A DALIRESP 500 MCG TABS 1 po qd 0 304 ROFLUMILAST 92054873743 Angela A MELOXICAM 15 MG TABS 1 po qd 0 3 MELOXICAM 03777278523 Angela A REQUIP 4 MG ORAL TABLET 1 po qd 0 3 ROPINIROLE HCL 40705764620 Angela A ITRACONAZOLE 100 MG CAPS 0 3 ITRACONAZOLE 75524999222 Angela A ACTOPLUS MET 15-850 MG TABS 1 po bid 0 304 PIOGLITAZONE HCL-METFORMIN HCL 46081381643 Angela A METOCLOPRAMIDE HCL 5 MG TABS 1 po qid 0 304 METOCLOPRAMIDE HCL 83952755153 Angela A OXYBUTYNIN CHLORIDE ER 10 MG [id number] 1 po qd 0 3 OXYBUTYNIN CHLORIDE 24417492769 Angela A PROAIR HFA 108 (90 Base) MCG/ACT INHALATION AEROSOL SOLUTION 0 304 ALBUTEROL SULFATE 34074093458 Angela A SPIRIVA HANDIHALER 18 MCG CAPS 1 po qd 0 304 TIOTROPIUM BROMIDE MONOHYDRATE 17524680275 Angela A SYMBICORT 80-4.5 MCG/ACT AERO 0 304 BUDESONIDE-FORMO TEROL FUMARATE 34769827515 Angela A METOPROLOL TARTRATE 25 MG TABS 1 po qd 0 304 METOPROLOL TARTRATE 85446057315 Angela A FUROSEMIDE 40 MG TABS 1 po qd 0 3/04 FUROSEMIDE 40366695959 Angela A GLIPIZIDE 10 MG TABS 1 po bid 0 3/04 GLIPIZIDE 79191806082 Angela A LEVO-T 50 MCG TABS 1 po qd 0 3/04 LEVOTHYROXINE SODIUM 73542221567 Angela A LEVO-T 50 MCG TABS 1 po qd 0 3/04 LEVOTHYROXINE SODIUM 98067851625 Stefany G GLIPIZIDE 10 MG TABS 1 po bid 0 3/04 GLIPIZIDE 64889448470 Stefany G FUROSEMIDE 40 MG TABS 1 po qd 0 304 FUROSEMIDE 70869779676 Stefany G METOPROLOL TARTRATE 25 MG TABS 1 po qd 0 3/04 METOPROLOL TARTRATE 00022596609 Stefany G SYMBICORT 80-4.5 MCG/ACT AERO 0 3/04 BUDESONIDE-FORMO TEROL FUMARATE 93178060437 Stefany G SPIRIVA HANDIHALER 18 MCG CAPS 1 po qd 04/08 TIOTROPIUM BROMIDE MONOHYDRATE 69714990942 Stefany Petersen PROAIR HFA 108 (90 Base) MCG/ACT INHALATION AEROSOL SOLUTION 0 3 ALBUTEROL SULFATE 53017844562 Stefany Petersen OXYBUTYNIN CHLORIDE ER 10 MG [id number] 1 po qd 11/16 OXYBUTYNIN CHLORIDE 21716547625 Stefany Petersen METOCLOPRAMIDE HCL 5 MG TABS 1 po qid 0 3 METOCLOPRAMIDE HCL 80385865398 Stefany Petersen ACTOPLUS MET 15-850 MG TABS 1 po bid 0 3 PIOGLITAZONE HCL-METFORMIN HCL 49290064878 Stefany Petersen ITRACONAZOLE 100 MG CAPS ITRACONAZOLE 10658544028 Stefany Petersen REQUIP 4 MG ORAL TABLET 1 po qd 0 07/06 ROPINIROLE HCL 66893377771 Stefany Petersen MELOXICAM 15 MG TABS 1 po qd 0 3 MELOXICAM 85405324210 Stefany Petersen DALIRESP 500 MCG TABS 1 po qd 12/05 ROFLUMILAST 60457765738 Stefany Petersen MONTELUKAST SODIUM 10 MG TABS 1 po qd 0 3 MONTELUKAST SODIUM 74398847149 Stefany Petersen FLUOXETINE HCL (PMDD) 20 MG ORAL CAPSULE 1 po tid 0 3 FLUOXETINE HCL (PMDD) 27830971035 Stefany Petersen [facility] OMEPRAZOLE 20.6 (20 Base) MG ORAL CAPSULE DELAYED RELEASE 1 po bid 0 3 OMEPRAZOLE MAGNESIUM 38055944148 Stefany Petersen LISINOPRIL 20 MG TABS 1 po qd 12/05 LISINOPRIL 05792923583 Stefany Petersen GABAPENTIN 600 MG TABS 1 po qid 0 3 GABAPENTIN 85423777204 Stefany Petersen FUROSEMIDE 40 MG TABS 1 po qd 3 FUROSEMIDE 50622140679 Stefany Petersen ANTI-DIARRHEAL 2 MG CAPS 3 LOPERAMIDE HCL 31373817098 Stefany Petersen AZITHROMYCIN 250 MG TABS 0 04/08 AZITHROMYCIN 23582886793 Stefany Petersen METOPROLOL TARTRATE 25 MG TABS 1 po qd 0 3 METOPROLOL TARTRATE 50929309621 Stefany Petersen FUROSEMIDE 40 MG TABS 1 po bid 0 3 FUROSEMIDE 11549701139 Stefany Petersen DELTASONE 20 MG ORAL TABLET 02/14 PREDNISONE 43235301652 Stefany Petersen OXYBUTYNIN CHLORIDE ER 10 MG [id number] 1 po qd 11/16 OXYBUTYNIN CHLORIDE 87172575277 Stefany Petersen ACTOPLUS MET 15-850 MG TABS 1 po bid 0 3 PIOGLITAZONE HCL-METFORMIN HCL 42544792836 Stefany Petersen GLIPIZIDE 10 MG TABS 1 po bid 0 3 GLIPIZIDE 12910529593 Stefany Petersen DOXYCYCLINE MONOHYDRATE 100 MG CAPS 0 3 DOXYCYCLINE MONOHYDRATE 42893917888 Stefany Petersen SYMBICORT 80-4.5 MCG/ACT AERO 0 3 BUDESONIDE-FORMO TEROL FUMARATE 86404682984 Stefany Petersen SPIRIVA HANDIHALER 18 MCG CAPS 1 po qd 0 7 TIOTROPIUM BROMIDE MONOHYDRATE 29271262765 Stefany Petersen PROAIR HFA 108 (90 Base) MCG/ACT INHALATION AEROSOL SOLUTION 0 3/ ALBUTEROL SULFATE 58614425398 Stefany Petersen DALIRESP 500 MCG TABS 1 po qd 12/05 ROFLUMILAST 37110190029 Stefany Petersen ITRACONAZOLE 100 MG CAPS 1 po qid 0/10 ITRACONAZOLE 66355793192 Stefany G Medications Administered No information available. [...] Procedures Code Procedure Name Date Entry Date 44952 Hepatitis C Atb: (ICD 10 Code: Z11.59) 20 23/04/29 CPT-35158 CMP CPT-17317 Itraconazole Level 4 CPT-09275 CMP CPT-16434 Itraconazole Level 8 CPT-66581 Itraconazole Level 6 CPT-03330 Itraconazole Level 6 CPT-51958 CMP [id number] CBC with Differential 2015 CPT-17721 Itraconazole Level 3 CPT-cdpcr C-Diff PCR Vital [...] Directive Description Start Date DURABLE POWER OF [employer] SALES LIVING WILL ON FILE
--- NOTE | 2025-08-12 14:54 | XR_ITS ---
FINAL REPORT CLINICAL HISTORY: Cough, shortness of breath COMPARISON: 07/16/2025 FINDINGS: A portable view of the chest was obtained. Cardiac and mediastinal silhouettes are within normal limits. New bilateral perihilar opacity and worsening left basilar opacity could represent pneumonia.. Small left pleural effusion. There is no pneumothorax. IMPRESSION: New bilateral perihilar opacity and worsening left basilar opacity could represent pneumonia. Small left pleural effusion. Reviewed, Interpreted and Dictated by Azeb Palacios MD Transcribed by Vijaya Villanueva Authenticated and [facility]
--- NOTE | 2025-08-12 14:55 | CT_ITS ---
FINAL REPORT TECHNIQUE: Thin section axial images were obtained from skull base to vertex without contrast. Coronal reconstruction images were obtained from the axial data. Exam was performed using dose reduction techniques such as automated exposure control, adjustment of the mA and kV according to patient size, and use of iterative reconstruction technique. CLINICAL HISTORY: Altered mental status COMPARISON: None FINDINGS: There is no mass effect or midline shift. There is no hydrocephalus. There is no intracranial hemorrhage. The posterior fossa is without acute abnormality. The basilar cisterns are preserved. The soft tissues are without acute abnormality. No acute osseous abnormality is identified. IMPRESSION: No acute intracranial abnormality. Reviewed, Interpreted and Dictated by Azeb Palacios MD Transcribed by Vijaya Villanueva Authenticated and [facility]
--- NOTE | 2025-08-12 16:38 | PC.NURSE ---
Called [facility] advised them pt was ready to be taken back to [place]
--- NOTE | 2025-08-12 17:06 | PC.NURSE ---
Patient and sister at bedside signed AMA form.
--- NOTE | 2025-08-12 17:09 | PC.NURSE ---
Luis Choudh[facility] while enroute to transfer this pt caught a run and had to call off of it until they were done with that. [facility] called for the transfer of this pt back to [place] and would be on the way to get the pt
== END 2025-08-12 17:45 | disposition left against medical advice (07) ==
PROVIDERS: Emergency Provider Student in an Organized Health Care Education/Training Program; PCP Family Medicine
DX: J18.9 Pneumonia, unspecified organism (principal); I95.9 Hypotension, unspecified; J44.0 Chronic obstructive pulmonary disease with (acute) lower respiratory infection; F17.210 Nicotine dependence, cigarettes, uncomplicated; I11.0 Hypertensive heart disease with heart failure; I50.9 Heart failure, unspecified; Z66 Do not resuscitate
CPT/HCPCS: 70450; 71045; 93005; 99285

== ENCOUNTER 2025-08-13 04:46 | Inpatient (IN) | payer MEDICARE, MEDICAID, SELFPAY ==
[2025-08-13] VITALS (62 sets, daily range): BP systolic 65–220; BP diastolic 28–164; PULSE 63–96; RESP 11–27; TEMP 36.3–37.4; O2SAT 85–100; BMI 50.8; BMI 37.3
--- NOTE | 2025-08-13 04:22 | ECG_ITS ---
APPROVED REPORT Exam: Resting ECG HR:68 bpm ECG Measurements Heart Rate 68 AXES QRSd 110 QRS 41 QT 395 T 43 QTc 412 Conclusion SUPRAVENTRICULAR RHYTHM LOW QRS VOLTAGE IN PRECORDIAL LEADS [QRS DEFLECTION < 1.0 mV IN CHEST LEADS] MINIMAL ST DEPRESSION [0.025+ mV ST DEPRESSION] ABNORMAL RHYTHM ECG UNCONFIRMED REPORT Electronically signed by : CANDI LANE, 08/17/2025 02:14:52
--- NOTE | 2025-08-13 04:45 | PC.NURSE ---
Son at bedside, pt has agreed for us to obtain a urine sample as well as blood. In/Out cath was performed without difficulty, IV placed in pt's left AC, no difficulties.
--- NOTE | 2025-08-13 04:52 | PC.NURSE ---
[facility] Expression of wishes paper reviewed with son (POA) that is at the bedside, filled out accordingly to patient's wishes and signed with physician signature as well. Paper given to be scanned into her chart. Pt agrees to IV placement and blood work and UA obtained via straight cath.
[2025-08-13 04:58] LABS: Microscopic, Urine URINE MICROSCOPIC (MICROSCOPIC)
--- OUTSIDE RECORDS SUMMARY | 2025-08-13 04:58 | XMS_ITS | Clinical Summary ---
Author Organization [facility] Address [address] [place] [address] Phone Care Team Providers Care Instrument Shop Supervisor Name Role Phone Marylou Werner MD [ ] Conditions or Problems Problem Name Problem Code Onset Date Status Entry Date Provider Comment Standard Description Annotate GERD 731990624 (SNOMED CT) 12/09 Active 12/09 Joshua Schmid MD Gastroesophageal reflux disease Tobacco abuse 41472981 (SNOMED CT) 12/09 Active 12/09 Joshua Schmid MD Tobacco dependence syndrome Diarrhea 35354623 (SNOMED CT) 12/08 Active 12/08 Chantell White Diarrhea Diabetes mellitus type II 18189247 (SNOMED CT) 12/08 Active 12/08 Chantell White Type 2 diabetes mellitus Acute pulmonary blastomycosis 223528623 (SNOMED CT) 12/08 Active 12/08 Chantell White Acute pulmonary blastomycosis Chronic pulmonary blastomycosis 144146078 (SNOMED CT) 12/08 Active 12/08 Chantell White Chronic pulmonary blastomycosis Medications Medication Instructions Start Date Stop Date Generic Name NDC Provider GLIPIZIDE 10 MG TABS take twice daily 05/09 GLIPIZIDE 57788666231 Joshua Schmid MD ITRACONAZOLE 100 MG CAPS Take two by mouth twice daily. 8 ITRACONAZOLE 15072270702 Joshua Schmid MD ITRACONAZOLE 100 MG CAPS take 2 po bid ITRACONAZOLE 89360792863 Joshua Schmid MD ITRACONAZOLE 100 MG CAPS Take two by mouth twice daily. 0/10 ITRACONAZOLE 24597034793 Joshua Schmid MD LEVOTHYROXINE SODIUM 50 MCG TABS daily 12/22 LEVOTHYROXINE SODIUM 67615440488 Tanisha L GNP OMEPRAZOLE 20 MG TBEC twice daily 12/22 OMEPRAZOLE 53581843184 Tanisha L SYMBICORT 80-4.5 MCG/ACT AERO 2 puffs twice daily BUDESONIDE-FORMO TEROL FUMARATE 60460078432 Marylou Martinez RN SPIRIVA HANDIHALER 18 MCG CAPS daily TIOTROPIUM BROMIDE MONOHYDRATE 73430323249 Marylou Martinez RN SINGULAIR 10 MG TABS daily MONTELUKAST SODIUM 40895013406 Marylou Martinez RN FLONASE ALLERGY RELIEF 50 MCG/ACT SUSP daily FLUTICASONE PROPIONATE 62175331087 Marylou Martinez RN DALIRESP 500 MCG TABS daily ROFLUMILAST 20319687916 Marylou Martinez RN DUTOPROL 25-12.5 MG ORAL TABLET EXTENDED RELEASE 24 HOUR daily METOPROLOL-HYDRO CHLOROTHIAZIDE 06033696699 Marylou Martinez RN REQUIP 4 MG ORAL TABLET 4 mg daily ROPINIROLE HCL 79075895180 Marylou Martinez RN KLOR-CON 10 10 MEQ CR-TABS twice daily POTASSIUM CHLORIDE 84217295107 Marylou Martinez RN GNP OMEPRAZOLE 20 MG TBEC twice daily 12/22 OMEPRAZOLE 67973241384 Marylou Martinez RN METOCLOPRAMIDE HCL 5 MG TABS one tab three times daily METOCLOPRAMIDE HCL 89338402416 Marylou Martinez RN PIOGLITAZONE HCL-METFORMIN HCL 15-850 MG TABS twice daily PIOGLITAZONE HCL-METFORMIN HCL 69217048747 Marylou Martinez RN MOBIC 15 MG ORAL TABLET daily MELOXICAM 78069951607 Marylou Martinez RN LISINOPRIL 20 MG TABS daily LISINOPRIL 06335979734 Marylou Martinez RN LEVOTHYROXINE SODIUM 50 MCG TABS daily 0 12/22 LEVOTHYROXINE SODIUM 63853997442 Marylou Martinez RN FLORICAL TABS 60mg daily SOD FLUORIDE-CA CARBONATE TABS 74618782413 Marylou Martinez RN GLIPIZIDE 10 MG TABS take twice daily 0 05/09 GLIPIZIDE 73758979389 Angela A GABAPENTIN 600 MG TABS take 2 tablets twice daily GABAPENTIN 17039503830 Angela A FUROSEMIDE 40 MG TABS take once daily as needed FUROSEMIDE 13171216406 Angela A ITRACONAZOLE 100 MG CAPS 1 po qid 0 3 ITRACONAZOLE 49406112768 Angela A DALIRESP 500 MCG TABS 1 po qd 0 3 ROFLUMILAST 76296671286 Angela A PROAIR HFA 108 (90 Base) MCG/ACT INHALATION AEROSOL SOLUTION 0 3 ALBUTEROL SULFATE 08420394719 Angela A SPIRIVA HANDIHALER 18 MCG CAPS 1 po qd 0 3 TIOTROPIUM BROMIDE MONOHYDRATE 03469517601 Angela A SYMBICORT 80-4.5 MCG/ACT AERO 0 3 BUDESONIDE-FORMO TEROL FUMARATE 58797395210 Angela A DOXYCYCLINE MONOHYDRATE 100 MG CAPS 0 3 DOXYCYCLINE MONOHYDRATE 35250295710 Angela A GLIPIZIDE 10 MG TABS 1 po bid 0 3 GLIPIZIDE 95550365442 Angela A ACTOPLUS MET 15-850 MG TABS 1 po bid 0 3 PIOGLITAZONE HCL-METFORMIN HCL 10720057396 Angela A OXYBUTYNIN CHLORIDE ER 10 MG [id number] 1 po qd 0 3 OXYBUTYNIN CHLORIDE 87054561731 Angela A DELTASONE 20 MG ORAL TABLET 0 3 PREDNISONE 32736709806 Angela A FUROSEMIDE 40 MG TABS 1 po bid 0 3 FUROSEMIDE 16376331128 Angela A METOPROLOL TARTRATE 25 MG TABS 1 po qd 0 3 METOPROLOL TARTRATE 76064654707 Angela A AZITHROMYCIN 250 MG TABS 0 3 AZITHROMYCIN 62502321282 Angela A ANTI-DIARRHEAL 2 MG CAPS 0 3 LOPERAMIDE HCL 16926604488 Angela A FUROSEMIDE 40 MG TABS 1 po qd 0 3 FUROSEMIDE 34823023971 Angela A GABAPENTIN 600 MG TABS 1 po qid 0 3 GABAPENTIN 08330374145 Angela A LISINOPRIL 20 MG TABS 1 po qd 0 3 LISINOPRIL 55674690358 Angela A [facility] OMEPRAZOLE 20.6 (20 Base) MG ORAL CAPSULE DELAYED RELEASE 1 po bid 0 3 OMEPRAZOLE MAGNESIUM 83414782905 Angela A FLUOXETINE HCL (PMDD) 20 MG ORAL CAPSULE 1 po tid 0 3 FLUOXETINE HCL (PMDD) 34532346872 Angela A MONTELUKAST SODIUM 10 MG TABS 1 po qd 0 3 MONTELUKAST SODIUM 38661979289 Angela A DALIRESP 500 MCG TABS 1 po qd 0 304 ROFLUMILAST 68082998174 Angela A MELOXICAM 15 MG TABS 1 po qd 0 3 MELOXICAM 50666696847 Angela A REQUIP 4 MG ORAL TABLET 1 po qd 0 3 ROPINIROLE HCL 14207906229 Angela A ITRACONAZOLE 100 MG CAPS 0 3 ITRACONAZOLE 52926347025 Angela A ACTOPLUS MET 15-850 MG TABS 1 po bid 0 304 PIOGLITAZONE HCL-METFORMIN HCL 41460269162 Angela A METOCLOPRAMIDE HCL 5 MG TABS 1 po qid 0 304 METOCLOPRAMIDE HCL 44877720100 Angela A OXYBUTYNIN CHLORIDE ER 10 MG [id number] 1 po qd 0 3 OXYBUTYNIN CHLORIDE 26795094455 Angela A PROAIR HFA 108 (90 Base) MCG/ACT INHALATION AEROSOL SOLUTION 0 304 ALBUTEROL SULFATE 20031565201 Angela A SPIRIVA HANDIHALER 18 MCG CAPS 1 po qd 0 304 TIOTROPIUM BROMIDE MONOHYDRATE 91148907998 Angela A SYMBICORT 80-4.5 MCG/ACT AERO 0 304 BUDESONIDE-FORMO TEROL FUMARATE 12833357216 Angela A METOPROLOL TARTRATE 25 MG TABS 1 po qd 0 304 METOPROLOL TARTRATE 07590626897 Angela A FUROSEMIDE 40 MG TABS 1 po qd 0 3/04 FUROSEMIDE 70214643606 Angela A GLIPIZIDE 10 MG TABS 1 po bid 0 3/04 GLIPIZIDE 84228003736 Angela A LEVO-T 50 MCG TABS 1 po qd 0 3/04 LEVOTHYROXINE SODIUM 94569493116 Angela A LEVO-T 50 MCG TABS 1 po qd 0 3/04 LEVOTHYROXINE SODIUM 98147196538 Stefany G GLIPIZIDE 10 MG TABS 1 po bid 0 3/04 GLIPIZIDE 74581622568 Stefany G FUROSEMIDE 40 MG TABS 1 po qd 0 304 FUROSEMIDE 09228040902 Stefany G METOPROLOL TARTRATE 25 MG TABS 1 po qd 0 3/04 METOPROLOL TARTRATE 59566865507 Stefany G SYMBICORT 80-4.5 MCG/ACT AERO 0 3/04 BUDESONIDE-FORMO TEROL FUMARATE 72980572144 Stefany G SPIRIVA HANDIHALER 18 MCG CAPS 1 po qd 04/08 TIOTROPIUM BROMIDE MONOHYDRATE 04389634936 Stefany Petersen PROAIR HFA 108 (90 Base) MCG/ACT INHALATION AEROSOL SOLUTION 0 3 ALBUTEROL SULFATE 61887028293 Stefany Petersen OXYBUTYNIN CHLORIDE ER 10 MG [id number] 1 po qd 11/16 OXYBUTYNIN CHLORIDE 24996619252 Stefany Petersen METOCLOPRAMIDE HCL 5 MG TABS 1 po qid 0 3 METOCLOPRAMIDE HCL 66989534114 Stefany Petersen ACTOPLUS MET 15-850 MG TABS 1 po bid 0 3 PIOGLITAZONE HCL-METFORMIN HCL 61024866430 Stefany Petersen ITRACONAZOLE 100 MG CAPS ITRACONAZOLE 78647504617 Stefany Petersen REQUIP 4 MG ORAL TABLET 1 po qd 0 07/06 ROPINIROLE HCL 75594888962 Stefany Petersen MELOXICAM 15 MG TABS 1 po qd 0 3 MELOXICAM 91375076523 Stefany Petersen DALIRESP 500 MCG TABS 1 po qd 12/05 ROFLUMILAST 39232862093 Stefany Petersen MONTELUKAST SODIUM 10 MG TABS 1 po qd 0 3 MONTELUKAST SODIUM 33575883906 Stefany Petersen FLUOXETINE HCL (PMDD) 20 MG ORAL CAPSULE 1 po tid 0 3 FLUOXETINE HCL (PMDD) 32577799986 Stefany Petersen [facility] OMEPRAZOLE 20.6 (20 Base) MG ORAL CAPSULE DELAYED RELEASE 1 po bid 0 3 OMEPRAZOLE MAGNESIUM 24326213680 Stefany Petersen LISINOPRIL 20 MG TABS 1 po qd 12/05 LISINOPRIL 25723809813 Stefany Petersen GABAPENTIN 600 MG TABS 1 po qid 0 3 GABAPENTIN 93240521981 Stefany Petersen FUROSEMIDE 40 MG TABS 1 po qd 3 FUROSEMIDE 19809959799 Stefany Petersen ANTI-DIARRHEAL 2 MG CAPS 3 LOPERAMIDE HCL 43264392250 Stefany Petersen AZITHROMYCIN 250 MG TABS 0 04/08 AZITHROMYCIN 97402292296 Stefany Petersen METOPROLOL TARTRATE 25 MG TABS 1 po qd 0 3 METOPROLOL TARTRATE 90548285517 Stefany Petersen FUROSEMIDE 40 MG TABS 1 po bid 0 3 FUROSEMIDE 31966030399 Stefany Petersen DELTASONE 20 MG ORAL TABLET 02/14 PREDNISONE 50783807134 Stefany Petersen OXYBUTYNIN CHLORIDE ER 10 MG [id number] 1 po qd 11/16 OXYBUTYNIN CHLORIDE 20443164553 Stefany Petersen ACTOPLUS MET 15-850 MG TABS 1 po bid 0 3 PIOGLITAZONE HCL-METFORMIN HCL 81354800353 Stefany Pteersen GLIPIZIDE 10 MG TABS 1 po bid 0 3 GLIPIZIDE 17052068174 Stefany Petersen DOXYCYCLINE MONOHYDRATE 100 MG CAPS 0 3 DOXYCYCLINE MONOHYDRATE 04081704565 Stefany Petersen SYMBICORT 80-4.5 MCG/ACT AERO 0 3 BUDESONIDE-FORMO TEROL FUMARATE 95722111719 Stefany Petersen SPIRIVA HANDIHALER 18 MCG CAPS 1 po qd 0 7 TIOTROPIUM BROMIDE MONOHYDRATE 30051527183 Stefany Petersen PROAIR HFA 108 (90 Base) MCG/ACT INHALATION AEROSOL SOLUTION 0 3/ ALBUTEROL SULFATE 25042059360 Stefany Petersen DALIRESP 500 MCG TABS 1 po qd 12/05 ROFLUMILAST 11262656703 Stefany Petersen ITRACONAZOLE 100 MG CAPS 1 po qid 0/10 ITRACONAZOLE 23377850919 Stefany G Medications Administered No information available. [...] Procedures Code Procedure Name Date Entry Date 17882 Hepatitis C Atb: (ICD 10 Code: Z11.59) 20 23/04/29 CPT-83385 CMP CPT-95759 Itraconazole Level 4 CPT-13232 CMP CPT-90412 Itraconazole Level 8 CPT-13130 Itraconazole Level 6 CPT-19337 Itraconazole Level 6 CPT-74533 CMP [id number] CBC with Differential 2015 CPT-06754 Itraconazole Level 3 CPT-cdpcr C-Diff PCR Vital [...] Directive Description Start Date DURABLE POWER OF SIDER LIVING WILL ON FILE
--- OUTSIDE RECORDS SUMMARY | 2025-08-13 04:59 | XMS_ITS | Clinical Summary ---
Author Organization [facility] [employer] ([place], [place], [place], [place], [place]) Address [address] [place] [address] Care Team Providers Care Form Setter Metal [employer] Forms Name Role Phone Unavailable Primary Care Provider [...] (02/01/2023): Added automatically from request for surgery [id number] Social History Tobacco Use Types Packs/Day Years [...] Date Garcia rded Speak language other than Belarusian at home Not on file 10/27/2023 Want [...] 8.0 % 02/02/2023 11:[address] [facility] Comment: Hemoglobin A1C levels are related to mean glucose during the preceding 2-3 months. Less than 7% demonstrates glycemic control in diabetic patients. Hemoglobin AlC % Suggested Diagnosis > or = 6.5 Diabetic 5.7 - 6.4 Prediabetic <5.7 Non-diabetic eAVG Glucose 182.9 mg/dL 02/02/2023 11:[address] [facility] Blood Venipuncture / Unknown 02/02/2023 3:00 AM EDT 02/02/2023 3:05 AM EDT Marylou Werner MD LAB BLOOD ORDERABLES Final R esult [facility] [address] [phone] from Last 3 Months or Most Recently Relevant to Health Maintenance Insurance HUMAN MEDICARE PPO MEDICAID OF [place] Advance Directives For more information, please contact: [phone] Documents on File Type Date Recorded Patient Manager Front Expl anation Power of Professor Of Theology 01/31/2023 * DNR - Limited Additional Intervention (Latest Code Status on File) Date Activated Date Inactivated Comments 01/31/2023 9:46 PM 02/06/2023 5:29 PM If no pulse: NO intervention If has pulse: NO Intubation. May use BiPAP/CPAP Call TRIAGE CLINICIAN * Full Code Date Activated Date Inactivated Comments 01/31/2023 8:28 PM 01/31/2023 9:46 PM Healthcare Agents on File Name Relationship Healthcare Agent Relationshi p Communication Rafael Fernandez Son First Alternate Healthcare Decision-Maker Cony Rebecca [id number] Second Alternate Healthcare Decision-Maker
--- OUTSIDE RECORDS SUMMARY | 2025-08-13 04:59 | XMS_ITS | Referral Summary ---
Author Organization [employer] ([place], [place], [place], [place], [place]) Address [address] [place] [address] Care Team Providers Care Pai Gow Dealer Name Role Phone Unavailable Primary Care Provider [...] (02/01/2023): Added automatically from request for surgery [id number] Social History Tobacco Use Types Packs/Day Years [...] Date Garcia rded Speak language other than Maltese at home Not on file 10/27/2023 Want [...] A1C 8.0 % 02/02/2023 11:14 AM EDT [facility] Comment: Hemoglobin A1C levels are related to mean glucose during the preceding 2-3 months. Less than 7% demonstrates glycemic control in diabetic patients. Hemoglobin AlC % Suggested Diagnosis > or = 6.5 Diabetic 5.7 - 6.4 Prediabetic <5.7 Non-diabetic eAVG Glucose 182.9 mg/dL 02/02/2023 11:14 AM EDT [facility] Blood Venipuncture / Unknown 02/02/2023 3:00 AM EDT 02/02/2023 3:05 AM EDT Marylou Werner MD LAB BLOOD ORDERABLES Final R esult [facility] [address] [phone] from Last 3 Months or Most Recently Relevant to Health Maintenance Insurance MEDICAID OF [place] [address] [place], [place] [id number] Advance Directives For more information, please contact: [phone] Documents on File Type Date Recorded Patient Director Of Career Services Expl anation Power of Chemistry Research Assistant 01/31/2023 * DNR - Limited Additional Intervention (Latest Code Status on File) Date Activated Date Inactivated Comments 01/31/2023 9:46 PM 02/06/2023 5:29 PM If no pulse: NO intervention If has pulse: NO Intubation. May use BiPAP/CPAP Call LAND LEASING EXAMINER * Full Code Date Activated Date Inactivated Comments 01/31/2023 8:28 PM 01/31/2023 9:46 PM Healthcare Agents on File Name Relationship Healthcare Agent Relationshi p Communication Rafael Fernandez Son First Alternate Healthcare Decision-Maker Cony Rebecca [id number] Second Alternate Healthcare Decision-Maker
--- OUTSIDE RECORDS SUMMARY | 2025-08-13 04:59 | XMS_ITS | Clinical Summary ---
Author Organization Healthcare Address [address] [place] [address] Care Team Providers Care Telephone Sales Representative Name Role Phone Tonya Freeman APRN Primary Care Provider + [phone] Social History Tobacco Use Types Packs/Day Years Used Date Smoking Tobacco: Never Assessed Comments Unknown Sex and Gender Information Value Date Recorded Sex Assigned at Not on file Legal Sex Female 7:29 PM EDT Gender Identity Not on file Sexual Orientation Not on file Plan of Treatment Not on file Care Teams Telephone Sales Representative Relationship Specialty Start Date End Date Tonya Freeman APRN [address] [place] [address] PCP - General 02/19/21
--- OUTSIDE RECORDS SUMMARY | 2025-08-13 04:59 | XMS_ITS | Clinical Summary ---
Author Organization [facility] Address [address] [place] [address] Care Team Providers Care Ring Packer Name Role Phone Provider, No Known Primary [...] (1 - 2023- season) 2025 Insurance [place]ID [place] [employer] [employer]VANTAGE Care Teams Ring Packer Relationship Specialty Start Date End Date Provider, No Known [facility] [place] [address] PCP - General 12/10/15
[2025-08-13 05:00] LABS: Immature Granulocytes % 1.1 %; Mean Corpuscular HGB Conc 28.9 g/dL (31.8-35.4); Mean Corpuscular Hemoglobin 28.9 pg (27.0-31.2); Mean Corpuscular Volume 100.0 fl (81-99); Nucleated Red Blood Cells % 0.4 %; Platelet Count 172 K/mm3 (142-424); Red Blood Count 1.42 M/mm3 (4.20-5.40); Red Cell Distribution Width-SD 59.2 fL; White Blood Count 15.6 K/mm3 (4.8-10.8)
[2025-08-13 05:00] LABS: Coronavirus 19, PCR Not Detected (NotDetected); Influenza A, PCR Not Detected (NotDetected); Influenza B, PCR Not Detected (NotDetected)
[2025-08-13 05:01] LABS: Bilirubin,Urine Negative (Negative); Color,Urine YELLOW (Yellow); Glucose,Urine (UA) Negative (Negative); Ketones,Urine Negative (Negative); Leukocyte Esterase,Urine Negative (Negative); PH,Urine 5.5 (5.0-8.5); Protein,Urine Negative (Negative); Specific Gravity, Urine 1.020 (1.005-1.030); Urobilinogen,Urine 0.2 EU/dl (0.2)
--- NOTE | 2025-08-13 05:04 | ED_ITS ---
Discharge Plan Disposition Patient Disposition: Admitted Clinical Impressions Clinical Impression: Acute blood loss anemia (ABLA), Acute hyperkalemia, AMS (altered mental status), Shock Discharge ED Provider: Enoc Markham Adult HPI General Chief complaint: Altered Mental Status Stated complaint: SOA Time Seen by Provider: 08/13/25 04:52 Mode of Arrival: EMS Source of Information: EMS Description of Symptoms (Recalled from ER Triage Doc. by RN): Pt presents from [facility] for evaluation of ALOC that began earlier yesterday and was seen in this department for. EMS reports altered mental state, skilled nursing reported low blood pressure and high heart rate with O2 sats in the 70's on her O2. EMS reported VSS during transportation. Pt does arrive in a confused stated, son at the bedside to confirm complaints and DNR/DNI status. History of Present Illness HPI narrative: 75-year-old female with history of COPD on 2/3 L nasal cannula baseline, kidney disease, history of breast cancer status postmastectomy, diabetes, coronary artery disease presents for hypotension, hypoxia and altered mental status. She was seen here yesterday and ultimately refused care and left AMA after discussion with her, her family/POA. See that note for details. Her blood pressure continued to be low at the nursing facility and she was convinced to come back to the ER. On arrival she is oriented to person and place but is unable to provide significant history. She has DNR/DNI which is confirmed by EMS, skilled nursing and son. Related Data Home Medications ?Medication ?Instructions ?Recorded ?Confirmed albuterol sulfate 1.25 mg/3 mL 1.25 mg inhalation TIDP PRN 07/27/22 07/06/25 solution for nebulization Shortness Of Breath lisinopril 20 mg tablet 20 mg PO DAILY Hypertension 11/01/22 07/06/25 montelukast 10 mg tablet 10 mg PO PM COPD 11/01/22 oxybutynin chloride 10 mg 10 mg PO DAILY INCONTINENCE 11/01/22 07/06/25 tablet,extended release 24 hr pantoprazole 40 mg tablet,delayed 40 mg PO DAILY Reflu x/Acid reflux 11/01/22 07/06/25 release roflumilast 500 mcg tablet 500 mcg PO DAILY COPD 11/0107/06/25 aspirin 81 mg tablet 81 mg PO DAILY 05/28/2506/10 clopidogrel 75 mg tablet (Plavix) 75 mg PO DAILY 05/2807/06/25 ferrous sulfate 325 mg (65 mg 325 mg PO BID 05/28/25 0 07/06/25 iron) tablet pramipexole 0.125 mg tablet 0.125 mg PO DAILY 05/28/25 07/06/25 trazodone 50 mg tablet 50 mg PO DAILY 05/28/2506/10 acetaminophen 500 mg tablet 500 mg PO .q8 PRN pain 07/06/25 bisacodyl 10 mg rectal suppository 10 mg AR DAILY PRN 06/23/25 07/06/25 insulin NPH-regular 70-30 U-100 24 unit SQ AC Diabetes 06/23/25 07/06/25 insulin 100 unit/mL subcutaneous pen (Novolin 70-30 FlexPen U-100 Insulin) insulin glargine 100 unit/mL (3 22 unit SQ BID Diabete s 06/23/25 07/06/25 mL) subcutaneous pen (Lantus Solostar U-100 Insulin) nadolol 20 mg tablet 20 mg PO BID Hypertension 07/06/25 nitroglycerin 0.4 mg sublingual 0.4 mg sublingual Q5-1 5M PRN 06/23/25 07/06/25 tablet sennosides 8.6 mg tablet (senna) 17.2 mg PO DAILY 06/0907/06/25 torsemide 100 mg tablet 50 mg PO DAILY 06/23/2506/10 umeclidinium 62.5 mcg/actuation 1 inh inhalation DAILY 06/23/25 07/06/25 blister powder for inhalation (Incruse Ellipta) venlafaxine 150 mg 150 mg PO DAILY 06/23/25 capsule,extended release 24 hr cephalexin 500 mg capsule 500 mg PO BID 08/05/2508/05 sulfamethoxazole 400 1 tab PO BID 08/05/25 mg-trimethoprim 80 mg tablet Previous Rx's ?Medication ?Instructions ?Recorded cetirizine 10 mg tablet (Zyrtec) 10 mg PO DAILY Allerg y symptoms 90 10/31/22 days #90 tabs gabapentin 300 mg capsule 300 mg PO TID #90 caps 05/27 albuterol 90 mcg-budesonide 80 2 inh inhalation QID AR N wheezing 06/10/25 mcg/actuation HFA aerosol inhaler #10.7 grams benzonatate 100 mg capsule 100 mg PO TID PRN cough #60 caps 06/10/25 budesonide-formoterol HFA 160 2 puff inhalation BID #1 0.2 grams 06/10/25 mcg-4.5 mcg/actuation aerosol inhaler (Symbicort) cholecalciferol (vitamin D3) 25 25 mcg PO DAILY #30 ca ps 06/10/25 mcg (1,000 unit) capsule potassium chloride 20 mEq 20 meq PO DAILY #30 tabs 12/03 tablet,extended release (K-Tab) acetaminophen 300 mg-codeine 15 mg 1 tab PO Q4H PRN pa in #180 tabs 06/19/25 tablet amoxicillin 875 mg-potassium 1 tab PO BID 5 days #10 t abs 08/12/25 clavulanate 125 mg tablet azithromycin 250 mg tablet See Rx Instructions PO .COM PLEX #6 08/12/25 (Zithromax Z-Terry) tabs Allergies Allergy/AdvReac Type Severity Reaction Status Date / Time acetaminophen (From Tylox) Allergy Verified 06/23/25 11:27 metformin Allergy Verified 06/23/25 11:27 Penicillins Allergy Verified 06/23/25 11:27 sitagliptin (From Januvia) Allergy Verified 06/23/25 11:27 oxycodone (From PERCOCET) AdvReac Unknown Verified 06/23/25 11:27 [facility] Disclaimer: The information contained in this section may have been updated after the patient was seen, as this information can be updated by other users. Medical History (Updated 08/13/25 @ 06:18 by Enoc Markham MD) COPD (chronic obstructive pulmonary disease) Tobacco abuse Chronic kidney disease Pneumonia Major depression, recurrent Blastomycosis Peripheral neuropathy Overactive bladder GERD (gastroesophageal reflux disease) Vitamin D deficiency Congestive heart failure Portal hypertension Impaired mobility Acute exacerbation of chronic obstructive airways disease COPD exacerbation UTI (urinary tract infection) Body mass index (BMI) greater than 40 Muscle weakness (generalized) Anemia, unspecified Other low back pain Sleep apnea History of COVID-19 Chronic cough Asthma History of diverticulitis History of cataract Allergies Hyperlipidemia Hypertension Edema Skin cancer Breast cancer Metatarsalgia of both feet Onychomycosis of toenail Type 2 diabetes mellitus, with long-term current use of insulin Diabetic foot Diastolic dysfunction CAD (coronary artery disease) History of noncompliance with medical treatment Intermittent palpitations Surgical History H/O bilateral mastectomy (~02/2012) H/O: hysterectomy History of dental surgery History of surgical removal of lesion History of carpal tunnel release History of cholecystectomy History of bladder surgery Family History Mother Hypertension Cancer Sister Cancer Father Cancer Son Cancer Social History Smoking Status: Current every day smoker tobacco type: cigarettes packs per day: 2 second hand exposure: Yes alcohol intake: never substance use type: denies use current occupational status: disabled Travel in the last 8 weeks?: None household members: none housing: skilled nursing number of children: 3 current occupational exposures/hazards: No caffeine: Yes special adam needs: No agree to transfusion: No additional social history: 1 son Other Medical History Have you received the Flu Vaccine for this season: No Have you received the Pneumonia Vaccine: Yes ROS Obtained: Yes All systems reviewed & no additional complaints except as documented Physical Exam General General appearance: anxious and in distress Head Head exam: atraumatic and normocephalic Eye Eye exam: Present normal appearance, PERRL and EOMI ENT ENT exam: Present normal oropharynx and normal external ear exam Neck Neck exam: Present normal inspection and full ROM Chest Chest inspection: Present normal inspection and symmetric chest wall rise; Absent tenderness Respiratory Respiratory exam: Present normal lung sounds bilaterally; Absent respiratory distress Cardiovascular Cardiovascular exam: Present regular rate and normal rhythm Abdominal Exam Abdominal exam: Present soft, distention and tenderness; Absent guarding Extremities Exam Extremities exam: Present edema and other (Pale, poor cap refill); Absent joint swelling Back Exam Back exam: Present normal inspection; Absent tenderness Neurological Exam Neurological exam: Present other (Oriented x 2) Psychiatric Psychiatric exam: Present agitated and anxious Skin Skin exam: Present dry, pallor and mottled Lymphatic Lymphatic Findings: no adenopathy Medical Decision Making Medical Records Medical records reviewed: Yes I reviewed the patient's medical records. Screening: Per USPSTF and CDC recommendations, given the prevalence of disease in our region, it is our hospital?s policy to screen for HIV and viral Hepatitis for all patients aged 18 and over and those with ongoing risk factors. Mervin Inquiry Pt receiving controlled substance: No Mervin was queried for this patient: No Vital Signs: 08/13/25 04:15 08/13/25 05:10 08/13/25 05:33 Temperature 98.3 F Temperature Source Oral Pulse Rate 64 66 Pulse Rate [Radial] 75 Respiratory Rate 22 21 22 Blood Pressure 191/164 H 68/28 L Blood Pressure [Right Arm] 220/110 H Blood Pressure Mean [Right Arm] 146 Blood Pressure Source [Right Arm] Manual Cuff/ Auscultation Blood Pressure Position [Right Arm] Supine 02 Sat by Pulse Oximetry 90 L 94 L 93 L Oxygen Delivery Method Nasal Cannula Nasal Cannula Oxygen Flow Rate (LPM) 3 3 08/13/25 05:39 08/13/25 05:47 Temperature Temperature Source Pulse Rate 66 65 Pulse Rate [Radial] Respiratory Rate 18 18 Blood Pressure 65/44 L 78/33 L Blood Pressure [Right Arm] Blood Pressure Mean [Right Arm] Blood Pressure Source [Right Arm] Blood Pressure Position [Right Arm] 02 Sat by Pulse Oximetry 93 L 94 L Oxygen Delivery Method Nasal Cannula Nasal Cannula Oxygen Flow Rate (LPM) 3 3 Lab Data Lab results reviewed: Yes I reviewed the patient's lab results. Lab Results 08/13/25 04:50: WBC 15.6 H, RBC 1.42 L*, Hgb 4.1 L*, Hct 14.2 L*, MCV 100.0 H, MCH 28.9, MCHC 28.9 L, RDW 17.2, Plt Count 172, MPV 11.6 H, Neut % (Auto) 74.9, Lymph % (Auto) 18.6, [place] % (Auto) 5.2, Eos % (Auto) 0.1, Baso % (Auto) 0.1, N eut # (Auto) 11.7 H, Lymph # (Auto) 2.9, [place] # (Auto) 0.8, Eos # (Auto) 0.0, Baso # (Auto) 0.0, PT 13.3 H, INR 1.22 H, Sodium 133 L, Potassium 7.2 H*, C hloride 95 L, Carbon Dioxide 36 H, Anion Gap 9.2, BUN 104 H*, Creatinine 2.30 H, Estimated Creat Clear 19, Estimated GFR 21 L, Est GFR ( Amer) 25 L, G lucose 112 H, Calcium 8.5, Phosphorus 4.8 H, Magnesium 2.4 H, Total Bilirubin 0.2, AST 53 H, ALT 28, Alkaline Phosphatase 93, Troponin I < 0.01, NT-Pro-B Natriuret Pep 1310 H, Total Protein 4.9 L, Albumin 2.9 L, Globulin 2.0, Albumin/Globulin Ratio 1.5, Lipase 43 08/13/25 04:54: Urine Color Yellow, Urine Appearance Clear, Urine pH 5.5, Ur Specific [place] 1.020, Urine Protein Negative, Urine Glucose (UA) Negative, Urine Ketones Negative, Urine Blood Negative, Urine Nitrate Negative, Urine Bilirubin Negative, Urine Urobilinogen 0.2, Ur Leukocyte Esterase Negative 08/13/25 04:55: VBG pH 7.33, VBG pCO2 64.7 H, VBG pO2 68.8 H, VBG HCO3 33.6 H, V BG Total CO2 35.6 H, VBG O2 Saturation 91.1 H, VBG Base Excess 7.7 H, VBG Lactic Acid 3.1 H 08/13/25 05:10: Hgb 4.1 L*, Hct 14.1 L* 08/13/25 05:15: Blood Type O Positive, Blood Type Confirm O Positive, Antibody Screen Negative, Crossmatch (AHG) See Detail 08/13/25 05:10 08/13/25 04:50 Orders (Tests/Meds): ED MEDICATIONS Generic Name Dose Route Start Last Admin Trade Name Freq PRN Reason Stop Dose Admin Calcium Gluconate/Sodium Chloride 2 gm in 100 mls @ 50 mls/hr 08/13/25 05:30 08/13/25 05:47 Calcium Gluconate 2,000mg/100ml Nacl Premix IV 08/13/25 07:29 50 mls/hr ONCE ONE Administration Sodium Chloride 250 mls @ 25 mls/hr 08/13/25 05:45 Sod Chlor 0.9% 250ml Bag IV 08/14/25 05:44 .Q10H RAMYA Norepinephrine/Dextrose 8 mg in 250 mls @ 3.75 mls/hr 08/13/25 05:51 Levophed 8mg/250ml-D5w Premix IV 09/12/25 05:50 .Q24H RAMYA Protocol 2 MCG/MIN Discontinued Medications Generic Name Dose Route Start Last Admin Trade Name Gay PRN Reason Stop Dose Admin Albuterol Sulfate 5 mg 08/13/25 05:29 Albuterol 0.083% 2.5 Mg/3 Ml Neb IH 08/13/25 05:30 ONCE ONE Dextrose 100 ml 08/13/25 05:29 08/13/25 05:47 Dextrose 50% 50ml Syringe (Crash Cart) IVP 08/13/25 05:30 100 ml ONCE ONE Administration Furosemide 40 mg 08/13/25 05:33 Furosemide 40mg/4ml Vial IV 08/13/25 05:34 ONCE ONE Pantoprazole Sodium 80 mg/ 100 mls @ 100 mls/hr 08/13/25 05:19 08/13/25 05:32 Sodium Chloride IV 08/13/25 06:18 Not Given ONCE ONE Pantoprazole Sodium 80 mg/ 100 mls @ 100 mls/hr 08/13/25 05:30 08/13/25 05:32 Sodium Chloride IV 08/13/25 06:29 Not Given ONCE ONE Insulin Human Regular 10 unit 08/13/25 05:29 08/13/25 05:46 Insulin Human Regular 100 Units/Ml 10ml Vial IVP 08/13/25 05:30 10 unit ONCE ONE Administration Pantoprazole Sodium 40 mg 08/13/25 05:45 Pantoprazole 40mg Vial IV 08/13/25 05:46 ONCE ONE Pantoprazole Sodium 80 mg 08/13/25 05:45 08/13/25 05:38 Pantoprazole 40mg Vial IV 08/13/25 05:46 80 mg ONCE ONE Administration ORDERS Category Date Time Status Transfuse RBC's [Red Blood Cells] Stat [facility] 08/13/25 05:15 Results Type and Screen Stat [facility] 08/13/25 05:15 Results BNP [NT Pro Brain Natriuretic Pep.] Stat Lab 08/13/25 04:50 Completed CBC w/Auto Diff [Complete Blood Count Auto Diff] Stat Lab 08/13/25 04:50 Completed CMP [Comprehensive Metabolic Panel] Stat Lab 08/13/25 04:50 Completed HH [Hemoglobin and Hematocrit] Stat Lab 08/13/25 05:10 Completed Haptoglobin Stat Lab 08/13/25 04:50 Received INR [Prothrombin Time INR] Stat Lab 08/13/25 04:50 Completed Lipase Stat Lab 08/13/25 04:50 Completed Magnesium Stat Lab 08/13/25 04:50 Completed Phosphorous Stat Lab 08/13/25 04:50 Completed Rapid PCR Covid and Flu A/B Stat Lab 08/13/25 04:55 Received Troponin I Q3H Lab 08/13/25 04:50 Completed Troponin I Q3H Lab 08/13/25 08:00 Ordered UA [Urinalysis and Microscopic] Stat Lab 08/13/25 04:54 Completed Blood Culture Stat Micro 08/13/25 04:40 Received VBG [Venous Blood Gas] Stat RT 08/13/25 04:55 Completed Medical Decision Narrative: 75-year-old female with history of COPD, CAD, diabetes presents for hypotension, hypoxia, altered mental status. Seen earlier and left AMA.. History was obtained via interactive discussion with patient, EMS, chart review, son. On arrival, patient is markedly hypertensive with blood pressures over 200 systolic on both cuff and manual pressures. GCS 13, oriented x 2, satting around 90% on her home oxygen, moving all extremities spontaneously. Full physical exam performed and significant for abdominal distention and tenderness, generally pale and anxious. Differential includes but is not limited to sepsis, anemia, intracranial pathology, pneumonia, UTI, aortic pathology, hypertensive urgency, hypertensive emergency. Patient initially refused to allow us to get an IV or urine or do much of anything. After discussion with her and her son, she assented to blood work and urinalysis. CT scan of her head from earlier shows no significant abnormality. Chest x-ray from earlier is concerning for possible pneumonia. Workup initiated including broad-spectrum blood work, EKG. On re-evaluation, patient remains severely hypertensive Laboratory workup independently interpreted by me and significant for critical anemia with hemoglobin 4.1, confirmed on recheck. Serious hyperkalemia noted with potassium of 7.1. Renal dysfunction noted with BUN 100, creatinine 2.3. On further discussion, patient reports that she has dark stools and skilled nursing reports that her stools are always dark. EKG independently interpreted by me and significant for sinus rhythm, ventricular rate of 68, peaked T waves and widened intervals concerning for hyperkalemia. Interpreted at 0422. On further reassessment, patient's blood pressure is now hypotensive with systolics consistently in the 60s. Unclear what has caused such as significant change so suddenly. Given patient history, exam and workup, patient's presentation most likely represents GI bleed with resultant severe anemia as well as uremia and hyperkalemia with EKG changes. Patient was initiated on calcium, insulin, dextrose, albuterol Lasix for treatment of critical hyperkalemia. She is initiated on pantoprazole and given 2 units of emergent blood for her severe anemia. Given her renal dysfunction, I considered transfer. However, after discussion with her son/POA, she would never want renal replacement therapy and so I do not think that transfer would provide any additional benefit at this time. Interactive discussion was had with the hospitalist on-call for admission. Discussed the utility of CT imaging for GI bleed. Given her critical status and her renal dysfunction, we will hold off on CT imaging at this time and continue to treat her hyperkalemia and transfuse at this time. Procedures Risk/Benefits of Procedure(s) Were Explained: Yes Critical Care Critical Care Time Critical Care Time: Yes Attestation: On 08/13/25, the high probability of a clinically significant, sudden or life threatening deterioration of the following system(s) required my full and direct attention, intervention and personal management. The time I documented below is in addition to time spent performing reported procedures but includes the following listed in this critical care notation. Total Time Total Critical Care Time: 70
[2025-08-13 05:05] LABS: Hematocrit 14.2 % (37.0-47.0)
[2025-08-13 05:06] LABS: VBG HCO3 33.6 mmol/L (23-30); VBG PH 7.33 mmol/L (7.31-7.41); VBG PO2 68.8 mmol/L (28-40)
[2025-08-13 05:06] LABS: Hemoglobin 4.1 g/dL (12.2-16.2)
[2025-08-13 05:09] LABS: Lactate Venous 3.1 mmol/L (0.4-2.0); VBG PCO2 64.7 mmol/L (35-51)
[2025-08-13 05:09] LABS: Albumin Level 2.9 g/dl (3.5-5.0); Chloride 95 mmol/L (98-107); Sodium 133 mmol/L (136-145)
--- NOTE | 2025-08-13 05:11 | PC.NURSE ---
Spoke with Jacklyn at [facility], informed her of pt's low HH, asked if she had been vomiting blood or passing blood in her stool, she stated She was told that the blood was from her hemorrhoids, and there was a small amount of blood this evening, but her stool has been dark and tarry.
[2025-08-13 05:12] LABS: Alanine Aminotransferase 28 U/L (12-78); Albumin/Globulin Ratio 1.5 (1.1-1.8); Alkaline Phosphatase 93 U/L (38-126); Anion Gap 9.2 mEq/L (5-15); Aspartate Amino Transferase 53 U/L (14-36); Bilirubin,Total 0.2 mg/dl (0.2-1.3); Carbon Dioxide 36 mmol/L (22.0-30.0); Creatinine Clearance Estimated 19 mL/min (50-200); Creatinine,Serum 2.30 mg/dl (0.52-1.04); Estimated Glomerular Filt Rate 21 ml/min (>60); GFR (African American) 25 ML/MIN (>60); Globulin 2.0 g/dL (1.3-3.2); Lipase 43 U/L (23-300); Phosphorous 4.8 mg/dl (2.5-4.5); Total Protein,Serum 4.9 g/dl (6.3-8.2)
[2025-08-13 05:13] LABS: Calcium 8.5 mg/dl (8.4-10.2); Glucose 112 mg/dl (74-100); Magnesium 2.4 mg/dl (1.6-2.3)
--- NOTE | 2025-08-13 05:13 | PC.NURSE ---
Lab at the bedside at this time to obtain type and screen
[2025-08-13 05:15] LABS: INR 1.22 (0.9-1.1); Prothrombin Time 13.3 seconds (10.1-12.5)
[2025-08-13 05:22] LABS: NT Pro Brain Natriuretic Pep. 1310 pg/mL (0-450)
[2025-08-13 05:26] LABS: Troponin I < 0.01 ng/ml (0.00-0.034)
[2025-08-13 05:28] LABS: Potassium 7.2 mmoL/L (3.5-5.1)
[2025-08-13 05:29] LABS: Blood Urea Nitrogen 104 mg/dl (7-17)
[2025-08-13 05:36] LABS: Hematocrit 14.1 % (37.0-47.0)
[2025-08-13 05:37] LABS: Hemoglobin 4.1 g/dL (12.2-16.2)
[2025-08-13] MEDS: PANTOPRAZOLE 40MG VIAL 80 MG IV (05:38)
[2025-08-13] MEDS: INSULIN HUMAN REGULAR 100 UNITS/ML 10ML VIAL 10 UNIT IVP (05:46)
[2025-08-13] MEDS: CALCIUM GLUC IN NACL, ISO-OSM 2 GM/100 ML BAG IV (05:47)
[2025-08-13] MEDS: DEXTROSE 50% 50ML SYRINGE (CRASH CART) 100 ML IVP (05:47)
--- NOTE | 2025-08-13 05:53 | PC.NURSE ---
decision for emergent blood made and lab aware
--- NOTE | 2025-08-13 05:56 | PC.NURSE ---
admitting physcian at the bedside at this time. Pt becoming more altered and confused at this time.
--- NOTE | 2025-08-13 06:04 | PC.NURSE ---
Emergent blood to the bedside and transfusion to being. [id number]
--- NOTE | 2025-08-13 06:09 | P.HP_ITS ---
<Statement entered by Kristian Johnson MD - 08/16/25 14:18> Agree with the plan of care as outlined by the [facility] [employer]. History of Present Illness *Admission Date: 08/13/25 *Reason for visit:: Confusion *History of present illness: This is a 75-year-old female who is known to our service line and has a past medical history significant for COPD, obesity, chronic kidney disease, GERD, vitamin D deficiency, congestive heart failure with diastolic dysfunction, hypertension, anemia, GERD, vitamin D deficiency, asthma, diverticulitis, skin cancer, breast cancer, diabetes, and coronary artery disease who presents with a chief complaint of altered mental status. Due to patient's altered mental status, her review of systems is limited; as a result, the majority of information obtained from the ER provider, chart review, and son at the bedside. According to ER provider, patient was transition to [facility] due to altered mental status, low blood pressure, oxygen saturation in the 70s, and high heart rate. Presenting to [facility], patient's blood pressure was in the 200s systolic and then a downward trended to 70 systolic. Patient's hemoglobin was 4 and her potassium was 7. Due to these findings, patient is being admitted for further management. During my evaluation of the patient, she could provide no meaningful data. She was lethargic and intermittently alert. I spoke with son at the bedside who voiced his mom did not want any aggressive treatment. He states that she did have a potassium of 9 in the past. Review of patient's home medication shows she is currently prescribed an ADELE inhibitor and supplemental potassium. P atient is very restless and appears to be [place]. ER provider states that staff at the nursing facility reports patient had some GI bleeding (is not clear on if the stool was dark or bright red blood). Additional pertinent values include blood pressure of 78/33, white blood cell count of 15.6, red blood cell count of 1.42, hemoglobin of 4.1, hematocrit 14.2, INR 1.22, sodium 133, potassium 7.2, 95, carbon oxide of 36, BUN of 104, creatinine of 2.30, GFR of 21, blood glucose of 112, phosphorus of 4.8, magnesium of 2.4, AST of 53, BNP of 1310,Hypokalemia patient total protein of 4.9, and albumin of 2.9. CT scan of the head was negative for any acute intracranial process. Plain films of the chest revealed bilateral perihilar opacity and worsening left base opacity concerning for pneumonia with small left pleural effusion. [facility] Disclaimer: The information contained in this section may have been updated after the patient was seen, as this information can be updated by other users. Medical History (Updated 08/13/25 @ 06:30 by Navjot Moura APRN) COPD (chronic obstructive pulmonary disease) Tobacco abuse Chronic kidney disease Pneumonia Major depression, recurrent Blastomycosis Peripheral neuropathy Overactive bladder GERD (gastroesophageal reflux disease) Vitamin D deficiency Congestive heart failure Portal hypertension Impaired mobility Acute exacerbation of chronic obstructive airways disease COPD exacerbation UTI (urinary tract infection) Body mass index (BMI) greater than 40 Muscle weakness (generalized) Anemia, unspecified Other low back pain Sleep apnea History of COVID-19 Chronic cough Asthma History of diverticulitis History of cataract Allergies Hyperlipidemia Hypertension Edema Skin cancer Breast cancer Metatarsalgia of both feet Onychomycosis of toenail Type 2 diabetes mellitus, with long-term current use of insulin Diabetic foot Diastolic dysfunction CAD (coronary artery disease) History of noncompliance with medical treatment Intermittent palpitations Surgical History H/O bilateral mastectomy (~02/2012) H/O: hysterectomy History of dental surgery History of surgical removal of lesion History of carpal tunnel release History of cholecystectomy History of bladder surgery Family History Mother Hypertension Cancer Sister Cancer Father Cancer Son Cancer Social History Smoking Status: Current every day smoker tobacco type: cigarettes packs per day: 2 second hand exposure: Yes alcohol intake: never substance use type: denies use current occupational status: disabled Travel in the last 8 weeks?: None household members: none housing: [facility] number of children: 3 current occupational exposures/hazards: No caffeine: Yes special adam needs: No agree to transfusion: No additional social history: 1 son Other Medical History Have you received the Flu Vaccine for this season: No Have you received the Pneumonia Vaccine: Yes Review of Systems Review of Systems Review of systems:: unable to obtain Meds Home Medications and Allergies Home Medications ?Medication ?Instructions ?Recorded ?Confirmed ?Type albuterol sulfate 1.25 mg/3 mL 1.25 mg inhalation TIDP PRN 07/27/22 07/06/25 History solution for nebulization Shortness Of Breath cetirizine 10 mg tablet (Zyrtec) 10 mg PO DAILY Allerg y symptoms 90 08/08/22 07/06/25 Rx days #90 tabs lisinopril 20 mg tablet 20 mg PO DAILY Hypertension 11/01/22 07/06/25 History montelukast 10 mg tablet 10 mg PO PM COPD 11/01/22 History oxybutynin chloride 10 mg 10 mg PO DAILY INCONTINENCE 11/01/22 07/06/25 History tablet,extended release 24 hr pantoprazole 40 mg tablet,delayed 40 mg PO DAILY Reflu x/Acid reflux 11/01/22 07/06/25 History release roflumilast 500 mcg tablet 500 mcg PO DAILY COPD 11/0107/06/25 History gabapentin 300 mg capsule 300 mg PO TID #90 caps 05/2707/06/25 Rx aspirin 81 mg tablet 81 mg PO DAILY 05/28/2506/10 History clopidogrel 75 mg tablet (Plavix) 75 mg PO DAILY 05/2807/06/25 History ferrous sulfate 325 mg (65 mg 325 mg PO BID 05/28/25 0 07/06/25 History iron) tablet pramipexole 0.125 mg tablet 0.125 mg PO DAILY 05/28/25 07/06/25 History trazodone 50 mg tablet 50 mg PO DAILY 05/28/2506/10 History albuterol 90 mcg-budesonide 80 2 inh inhalation QID RI N wheezing 06/10/25 07/06/25 Rx mcg/actuation HFA aerosol inhaler #10.7 grams benzonatate 100 mg capsule 100 mg PO TID PRN cough #60 caps 06/10/25 07/06/25 Rx budesonide-formoterol HFA 160 2 puff inhalation BID #1 0.2 grams 06/10/25 07/06/25 Rx mcg-4.5 mcg/actuation aerosol inhaler (Symbicort) cholecalciferol (vitamin D3) 25 25 mcg PO DAILY #30 ca ps 06/10/25 07/06/25 Rx mcg (1,000 unit) capsule potassium chloride 20 mEq 20 meq PO DAILY #30 tabs 12/0307/06/25 Rx tablet,extended release (K-Tab) acetaminophen 300 mg-codeine 15 mg 1 tab PO Q4H PRN pa in #180 tabs 06/19/25 07/06/25 Rx tablet acetaminophen 500 mg tablet 500 mg PO .q8 PRN pain 07/06/25 History bisacodyl 10 mg rectal suppository 10 mg RI DAILY PRN 06/23/25 07/06/25 History insulin NPH-regular 70-30 U-100 24 unit SQ AC Diabetes 06/23/25 07/06/25 History insulin 100 unit/mL subcutaneous pen (Novolin 70-30 FlexPen U-100 Insulin) insulin glargine 100 unit/mL (3 22 unit SQ BID Diabete s 06/23/25 07/06/25 History mL) subcutaneous pen (Lantus Solostar U-100 Insulin) nadolol 20 mg tablet 20 mg PO BID Hypertension 07/06/25 History nitroglycerin 0.4 mg sublingual 0.4 mg sublingual Q5-1 5M PRN 06/23/25 07/06/25 History tablet sennosides 8.6 mg tablet (senna) 17.2 mg PO DAILY 06/0907/06/25 History torsemide 100 mg tablet 50 mg PO DAILY 06/23/2506/10 History umeclidinium 62.5 mcg/actuation 1 inh inhalation DAILY 06/23/25 07/06/25 History blister powder for inhalation (Incruse Ellipta) venlafaxine 150 mg 150 mg PO DAILY 06/23/25 History capsule,extended release 24 hr cephalexin 500 mg capsule 500 mg PO BID 08/05/2508/05 History sulfamethoxazole 400 1 tab PO BID 08/05/25 History mg-trimethoprim 80 mg tablet amoxicillin 875 mg-potassium 1 tab PO BID 5 days #10 t abs 08/12/25 Rx clavulanate 125 mg tablet azithromycin 250 mg tablet See Rx Instructions PO .COM PLEX #6 08/12/25 Rx (Zithromax Z-Terry) tabs New Prescriptions to Start Prescriptions: Allergies Allergy/AdvReac Type Severity Reaction Status Date / Time acetaminophen (From Tylox) Allergy Verified 06/23/25 11:27 metformin Allergy Verified 06/23/25 11:27 Penicillins Allergy Verified 06/23/25 11:27 sitagliptin (From Januvia) Allergy Verified 06/23/25 11:27 oxycodone (From PERCOCET) AdvReac Unknown Verified 06/23/25 11:27 Exam Data for Last 24 hours Vital signs and Labs for Last 24 Hours: Temp Pulse Resp BP Pulse Ox O2 Del Method O2 Flow Rate 98.3 F 65 18 78/33 L 94 L Nasal Cannula 3 08/13/25 04:15 08/13/25 05:47 08/13/25 05:47 08/13/25 05:47 08/13/25 05:47 08/13/25 05:47 08/13/25 05:47 Laboratory Results - last 24 hr 08/13/25 04:50: WBC 15.6 H, RBC 1.42 L*, Hgb 4.1 L*, Hct 14.2 L*, MCV 100.0 H, M CH 28.9, MCHC 28.9 L, RDW 17.2, Plt Count 172, MPV 11.6 H, Neut % (Auto) 74.9, Lymph % (Auto) 18.6, Peach % (Auto) 5.2, Eos % (Auto) 0.1, Baso % (Auto) 0.1, Neut # (Auto) 11.7 H, Lymph # (Auto) 2.9, Peach # (Auto) 0.8, Eos # (Auto) 0.0, Baso # (Auto) 0.0, PT 13.3 H, INR 1.22 H, Sodium 133 L, Potassium 7.2 H*, Chloride 95 L, Carbon Dioxide 36 H, Anion Gap 9.2, BUN 104 H*, Creatinine 2.30 H , Estimated Creat Clear 19, Estimated GFR 21 L, Est GFR ( Amer) 25 L, Glucose 112 H, Calcium 8.5, Phosphorus 4.8 H, Magnesium 2.4 H, Total Bilirubin 0.2, AST 53 H, ALT 28, Alkaline Phosphatase 93, Troponin I < 0.01, NT-Pro-B Natriuret Pep 1310 H, Total Protein 4.9 L, Albumin 2.9 L, Globulin 2.0, Albumin/Globulin Ratio 1.5, Lipase 43 08/13/25 04:54: Urine Color Yellow, Urine Appearance Clear, Urine pH 5.5, Ur Specific [place] 1.020, Urine Protein Negative, Urine Glucose (UA) Negative, Urine Ketones Negative, Urine Blood Negative, Urine Nitrate Negative, Urine Bilirubin Negative, Urine Urobilinogen 0.2, Ur Leukocyte Esterase Negative 08/13/25 04:55: VBG pH 7.33, VBG pCO2 64.7 H, VBG pO2 68.8 H, VBG HCO3 33.6 H, VBG Total CO2 35.6 H, VBG O2 Saturation 91.1 H, VBG Base Excess 7.7 H, VBG Lactic Acid 3.1 H 08/13/25 05:10: Hgb 4.1 L*, Hct 14.1 L* 08/13/25 05:15: Blood Type O Positive, Blood Type Confirm O Positive, Antibody Screen Negative, Crossmatch (AHG) See Detail I & O for Last 24 hours: Intake & Output 08/10/25 08/11/25 08/12/25 08/13/25 22:59 23:59 23:59 23:59 Weight 142.882 kg Constitutional Constitutional: mild distress, morbidly obese, obese and chronically ill appearing *Routine HEENT Exam Head: Present normocephalic and atraumatic Eye: Present EOMI and PERRL ENT: Present other (Cyanosis) *Routine Neck Exam Neck: Present supple, full ROM and trachea midline *Routine Respiratory Exam Respiratory: Present decreased breath sounds, respiratory distress, diminished air movement and symmetric chest movement *Routine Cardiovascular Exam Cardiovascular: Present Normal S1, Normal S2 and irregular rhythm *Routine Abdominal Exam Abdominal: Present soft and normoactive bowel sounds *Routine Rectal Exam Rectal:: deferred *Routine Genitalia Exam Genitalia:: deferred *Routine Extremities Exam Extremities: Present cyanosis Routine Back/Spine/Pelvis Exam Back/Spine: Present full ROM *Routine Skin Exam Skin: Present cyanosis, erythema and dry *Routine Neurological Exam Neurological: Present altered mental status and moving all extremities H&P: Result Impressions 75-year-old female presents from nursing facility with altered mental status and significantly blood pressure, and elevated potassium Assessment and Plan *Assessment and plan (1) AMS (altered mental status): Status: Acute Qualifiers: Altered mental status type: unspecified Qualified Code(s): R41.82 - Altered mental status, unspecified Category: Medical Code(s): R41.82 - Altered mental status, unspecified (2) Acute blood loss anemia (ABLA): Status: Acute Category: Medical Code(s): D62 - Acute posthemorrhagic anemia (3) Pneumonia: Status: Acute Qualifiers: Pneumonia type: due to unspecified organism Laterality: bilateral Lung location: lower lobe of lung Qualified Code(s): J18.9 - Pneumonia, unspecified organism Category: Medical Code(s): J18.9 - Pneumonia, unspecified organism (4) Acute on chronic renal failure: Status: Acute Qualifiers: Acute renal failure type: unspecified Chronic kidney disease stage: unspecified stage Qualified Code(s): N17.9 - Acute kidney failure, unspecified; N18.9 - Chronic kidney disease, unspecified Category: Medical Code(s): N17.9 - Acute kidney failure, unspecified; N18.9 - Chronic kidney disease, unspecified (5) Hyperkalemia: Status: Acute Category: Medical Code(s): E87.5 - Hyperkalemia (6) Acute and chronic respiratory failure with hypercapnia: Status: Acute Category: Medical Code(s): J96.22 - Acute and chronic respiratory failure with hypercapnia (7) Hypotension: Status: Acute Category: Medical Code(s): I95.9 - Hypotension, unspecified Plan Assessment: Altered mental status - Most likely due to toxic metabolic encephalopathy - Concerns for uremia - Will consider MRI of the brain if no improvement Pneumonia -1 g Rocephin IV daily - 500 mg of azithromycin daily -Blood cultures x 2 Macrocytic anemia Concerns for GI bleed - May be due to acute blood loss - Will type and screen and transfuse 2 units of packed red blood cells - Monitor hemoglobin hematocrit every 6 hours - Obtain haptoglobin - Will consult GI specialist for potential endoscopy - Occult stool - Protonix drip at 8 mg an hour Hyperkalemia - Patient did receive Martinez cocktail while in the emergency room - Will recheck patient's hemoglobin at 0800 hrs. - If patient's potassium remains significantly elevated, will consider insulin drip and dextrose infusion - The members are against hemodialysis - Will hold patient's ADELE inhibitor and potassium Hypotension - Taking systolic blood pressure greater 95 and mean arterial pressure greater than 65 Acute on chronic renal impairment - Baseline creatinine is around 1.10 - Most likely prerenal in the setting of hypotension and severe anemia - May have some underlying uremia - Will consider ultrasound of the kidneys and urine studies Acute on chronic hypoxic hypercapnic respiratory failure - Patient does have small pleural effusion - Patient is too unstable for diuretics - Will consider BiPAP Plan: Admit patient to the MedSurg unit Saline lock Keep patient n.p.o. CBC/CMP daily Obtain anemia profile 4 mg Zofran IV push straight hours pain nausea vomit DNR Total critical care time of 40 minutes I will discuss this case with attending physician Dr. Johnson and I look forward to more input
--- NOTE | 2025-08-13 06:23 | PC.NURSE ---
report given to Kitty HUERTA in the ICU
--- NOTE | 2025-08-13 06:41 | PC.NURSE ---
Emergent blood transfusion. [id number] Pre transfusion 0605 0605: 114/25, 10, 91%, 93, 97.3 Start 0608: 93/34, 10, 92%, 88, 97.3 0613: 90/36, 14, 92%, 81, 97.3 0618: 86/76, 14, 91%, 85, 97.3 0623: 93/34, 13, 93%, 77, 97.3 Pt transported upstairs before the 1st unit is complete.
[2025-08-13] MEDS: 0.9 % SODIUM CHLORIDE 250 ML 25 ML IV ×2 (06:54→16:00)
--- NOTE | 2025-08-13 06:54 | PC.NURSE ---
patient arrived to ICU unit via ED stretcher @06:30am from ED
[2025-08-13] MEDS: ALBUTEROL 0.083% 2.5 MG/3 ML NEB 5 MG IH (07:01)
[2025-08-13] MEDS: NOREPINEPHRINE BITARTRATE/D5W 8 MG/250 ML PLAST..BAG 15 MG IV ×2 (07:04→20:09)
[2025-08-13 07:07] LABS: POC Glucose,Bedside 227 gm/dL (70-110)
--- OUTSIDE RECORDS SUMMARY | 2025-08-13 07:39 | XMS_ITS | Clinical Summary ---
Author Organization [facility] Address [address] [place] [address] Phone Care Team Providers Care Attendant Sales Name Role Phone Marylou Werner MD [phone] [ ] Conditions or Problems Problem Name Problem Code Onset Date Status Entry Date Provider Comment Standard Description Annotate GERD 018922335 (SNOMED CT) 12/09 Active 12/09 Joshua Schmid MD Gastroesophageal reflux disease Tobacco abuse 16092103 (SNOMED CT) 12/09 Active 12/09 Joshua Schmid MD Tobacco dependence syndrome Diarrhea 21287839 (SNOMED CT) 12/08 Active 12/08 Chantell White Diarrhea Diabetes mellitus type II 90804264 (SNOMED CT) 12/08 Active 12/08 Chantell White Type 2 diabetes mellitus Acute pulmonary blastomycosis 013054467 (SNOMED CT) 12/08 Active 12/08 Chantell White Acute pulmonary blastomycosis Chronic pulmonary blastomycosis 859099891 (SNOMED CT) 12/08 Active 12/08 Chantell White Chronic pulmonary blastomycosis Medications Medication Instructions Start Date Stop Date Generic Name NDC Provider GLIPIZIDE 10 MG TABS take twice daily 05/09 GLIPIZIDE 42892589841 Joshua Schmid MD ITRACONAZOLE 100 MG CAPS Take two by mouth twice daily. 8 ITRACONAZOLE 92949530307 Joshua Schmid MD ITRACONAZOLE 100 MG CAPS take 2 po bid ITRACONAZOLE 12942547094 Joshua Schmid MD ITRACONAZOLE 100 MG CAPS Take two by mouth twice daily. 0/10 ITRACONAZOLE 81495875253 Joshua Schmid MD LEVOTHYROXINE SODIUM 50 MCG TABS daily 12/22 LEVOTHYROXINE SODIUM 27823383382 Tanisha L GNP OMEPRAZOLE 20 MG TBEC twice daily 12/22 OMEPRAZOLE 16329898954 Tanisha L SYMBICORT 80-4.5 MCG/ACT AERO 2 puffs twice daily BUDESONIDE-FORMO TEROL FUMARATE 48641822485 Marylou Martinez RN SPIRIVA HANDIHALER 18 MCG CAPS daily TIOTROPIUM BROMIDE MONOHYDRATE 44819097843 Marylou Martinez RN SINGULAIR 10 MG TABS daily MONTELUKAST SODIUM 94254252350 Marylou Martinez RN FLONASE ALLERGY RELIEF 50 MCG/ACT SUSP daily FLUTICASONE PROPIONATE 40965852154 Marylou Martinez RN DALIRESP 500 MCG TABS daily ROFLUMILAST 26307976141 Marylou Martinez RN DUTOPROL 25-12.5 MG ORAL TABLET EXTENDED RELEASE 24 HOUR daily METOPROLOL-HYDRO CHLOROTHIAZIDE 96647957166 Marylou Martinez RN REQUIP 4 MG ORAL TABLET 4 mg daily ROPINIROLE HCL 46817646980 Marylou Martinez RN KLOR-CON 10 10 MEQ CR-TABS twice daily POTASSIUM CHLORIDE 22251006243 Marylou Martinez RN GNP OMEPRAZOLE 20 MG TBEC twice daily 12/22 OMEPRAZOLE 12030221716 Marylou Martinez RN METOCLOPRAMIDE HCL 5 MG TABS one tab three times daily METOCLOPRAMIDE HCL 11619044980 Marylou Martinez RN PIOGLITAZONE HCL-METFORMIN HCL 15-850 MG TABS twice daily PIOGLITAZONE HCL-METFORMIN HCL 48221695608 Marylou Martinez RN MOBIC 15 MG ORAL TABLET daily MELOXICAM 09805236671 Marylou Martinez RN LISINOPRIL 20 MG TABS daily LISINOPRIL 24617212873 Marylou Martinez RN LEVOTHYROXINE SODIUM 50 MCG TABS daily 0 12/22 LEVOTHYROXINE SODIUM 12467783949 Marylou Martinez RN FLORICAL TABS 60mg daily SOD FLUORIDE-CA CARBONATE TABS 64006542623 Mraylou Martinez RN GLIPIZIDE 10 MG TABS take twice daily 0 05/09 GLIPIZIDE 74551706110 Angela A GABAPENTIN 600 MG TABS take 2 tablets twice daily GABAPENTIN 02663971068 Angela A FUROSEMIDE 40 MG TABS take once daily as needed FUROSEMIDE 75544456221 Angela A ITRACONAZOLE 100 MG CAPS 1 po qid 0 3 ITRACONAZOLE 81364531307 Angela A DALIRESP 500 MCG TABS 1 po qd 0 3 ROFLUMILAST 28778974059 Angela A PROAIR HFA 108 (90 Base) MCG/ACT INHALATION AEROSOL SOLUTION 0 3 ALBUTEROL SULFATE 69619282650 Angela A SPIRIVA HANDIHALER 18 MCG CAPS 1 po qd 0 3 TIOTROPIUM BROMIDE MONOHYDRATE 16138177840 Angela A SYMBICORT 80-4.5 MCG/ACT AERO 0 3 BUDESONIDE-FORMO TEROL FUMARATE 44420371517 Angela A DOXYCYCLINE MONOHYDRATE 100 MG CAPS 0 3 DOXYCYCLINE MONOHYDRATE 86207668924 Angela A GLIPIZIDE 10 MG TABS 1 po bid 0 3 GLIPIZIDE 79084652134 Angela A ACTOPLUS MET 15-850 MG TABS 1 po bid 0 3 PIOGLITAZONE HCL-METFORMIN HCL 22717243313 Angela A OXYBUTYNIN CHLORIDE ER 10 MG [id number]-[id number] 1 po qd 0 3 OXYBUTYNIN CHLORIDE 97428071811 Angela A DELTASONE 20 MG ORAL TABLET 0 3 PREDNISONE 59678755953 Angela A FUROSEMIDE 40 MG TABS 1 po bid 0 3 FUROSEMIDE 19147319690 Angela A METOPROLOL TARTRATE 25 MG TABS 1 po qd 0 3 METOPROLOL TARTRATE 88937924169 Angela A AZITHROMYCIN 250 MG TABS 0 3 AZITHROMYCIN 94755018581 Angela A ANTI-DIARRHEAL 2 MG CAPS 0 3 LOPERAMIDE HCL 91717709650 Angela A FUROSEMIDE 40 MG TABS 1 po qd 0 3 FUROSEMIDE 25685905476 Angela A GABAPENTIN 600 MG TABS 1 po qid 0 3 GABAPENTIN 79825537915 Angela A LISINOPRIL 20 MG TABS 1 po qd 0 3 LISINOPRIL 07311493130 Angela A [facility] OMEPRAZOLE 20.6 (20 Base) MG ORAL CAPSULE DELAYED RELEASE 1 po bid 0 3 OMEPRAZOLE MAGNESIUM 70304100212 Angela A FLUOXETINE HCL (PMDD) 20 MG ORAL CAPSULE 1 po tid 0 3 FLUOXETINE HCL (PMDD) 93767515168 Angela A MONTELUKAST SODIUM 10 MG TABS 1 po qd 0 3 MONTELUKAST SODIUM 00234557897 Angela A DALIRESP 500 MCG TABS 1 po qd 0 304 ROFLUMILAST 67349152813 Angela A MELOXICAM 15 MG TABS 1 po qd 0 3 MELOXICAM 12684132061 Angela A REQUIP 4 MG ORAL TABLET 1 po qd 0 3 ROPINIROLE HCL 83744076760 Angela A ITRACONAZOLE 100 MG CAPS 0 3 ITRACONAZOLE 80494799436 Angela A ACTOPLUS MET 15-850 MG TABS 1 po bid 0 304 PIOGLITAZONE HCL-METFORMIN HCL 48625014019 Angela A METOCLOPRAMIDE HCL 5 MG TABS 1 po qid 0 304 METOCLOPRAMIDE HCL 12460523758 Angela A OXYBUTYNIN CHLORIDE ER 10 MG [id number] 1 po qd 0 3 OXYBUTYNIN CHLORIDE 26408169311 Angela A PROAIR HFA 108 (90 Base) MCG/ACT INHALATION AEROSOL SOLUTION 0 304 ALBUTEROL SULFATE 03522251867 Angela A SPIRIVA HANDIHALER 18 MCG CAPS 1 po qd 0 304 TIOTROPIUM BROMIDE MONOHYDRATE 66937669688 Angela A SYMBICORT 80-4.5 MCG/ACT AERO 0 304 BUDESONIDE-FORMO TEROL FUMARATE 19995097315 Angela A METOPROLOL TARTRATE 25 MG TABS 1 po qd 0 304 METOPROLOL TARTRATE 35783449072 Angela A FUROSEMIDE 40 MG TABS 1 po qd 0 3/04 FUROSEMIDE 57583568019 Angela A GLIPIZIDE 10 MG TABS 1 po bid 0 3/04 GLIPIZIDE 44687975283 Angela A LEVO-T 50 MCG TABS 1 po qd 0 3/04 LEVOTHYROXINE SODIUM 55193439685 Angela A LEVO-T 50 MCG TABS 1 po qd 0 3/04 LEVOTHYROXINE SODIUM 44812590865 Stefany G GLIPIZIDE 10 MG TABS 1 po bid 0 3/04 GLIPIZIDE 43508291690 Stefany G FUROSEMIDE 40 MG TABS 1 po qd 0 304 FUROSEMIDE 03341940268 Stefany G METOPROLOL TARTRATE 25 MG TABS 1 po qd 0 3/04 METOPROLOL TARTRATE 89846228095 Stefany G SYMBICORT 80-4.5 MCG/ACT AERO 0 3/04 BUDESONIDE-FORMO TEROL FUMARATE 95961985218 Stefany G SPIRIVA HANDIHALER 18 MCG CAPS 1 po qd 04/08 TIOTROPIUM BROMIDE MONOHYDRATE 40788097991 Stefany Petersen PROAIR HFA 108 (90 Base) MCG/ACT INHALATION AEROSOL SOLUTION 0 3 ALBUTEROL SULFATE 23989394678 Stefany Petersen OXYBUTYNIN CHLORIDE ER 10 MG [id number] 1 po qd 11/16 OXYBUTYNIN CHLORIDE 45029912173 Stefany Petesren METOCLOPRAMIDE HCL 5 MG TABS 1 po qid 0 3 METOCLOPRAMIDE HCL 71386515992 Stefany Petersen ACTOPLUS MET 15-850 MG TABS 1 po bid 0 3 PIOGLITAZONE HCL-METFORMIN HCL 81335958442 Stefany Petersen ITRACONAZOLE 100 MG CAPS ITRACONAZOLE 16368747605 Stefany Petersen REQUIP 4 MG ORAL TABLET 1 po qd 0 07/06 ROPINIROLE HCL 92071524139 Stefany Petersen MELOXICAM 15 MG TABS 1 po qd 0 3 MELOXICAM 62706620537 Stefany Petersen DALIRESP 500 MCG TABS 1 po qd 12/05 ROFLUMILAST 83266134311 Stefany Petersen MONTELUKAST SODIUM 10 MG TABS 1 po qd 0 3 MONTELUKAST SODIUM 01354614451 Stefany Petersen FLUOXETINE HCL (PMDD) 20 MG ORAL CAPSULE 1 po tid 0 3 FLUOXETINE HCL (PMDD) 19981037480 Stefany Petersen [facility] OMEPRAZOLE 20.6 (20 Base) MG ORAL CAPSULE DELAYED RELEASE 1 po bid 0 3 OMEPRAZOLE MAGNESIUM 75044182581 Stefany Petersen LISINOPRIL 20 MG TABS 1 po qd 12/05 LISINOPRIL 60922691569 Stefany Petersen GABAPENTIN 600 MG TABS 1 po qid 0 3 GABAPENTIN 54943043125 Stefany Petersen FUROSEMIDE 40 MG TABS 1 po qd 3 FUROSEMIDE 58527856165 Stefany Petersen ANTI-DIARRHEAL 2 MG CAPS 3 LOPERAMIDE HCL 08026468058 Stefany Petersen AZITHROMYCIN 250 MG TABS 0 04/08 AZITHROMYCIN 65318730391 Stefany Petersen METOPROLOL TARTRATE 25 MG TABS 1 po qd 0 3 METOPROLOL TARTRATE 05431627748 Stefany Petersen FUROSEMIDE 40 MG TABS 1 po bid 0 3 FUROSEMIDE 76034362482 Stefany Petersen DELTASONE 20 MG ORAL TABLET 02/14 PREDNISONE 38929566394 Stefany Petersen OXYBUTYNIN CHLORIDE ER 10 MG [id number] 1 po qd 11/16 OXYBUTYNIN CHLORIDE 67302241148 Stefany Petersen ACTOPLUS MET 15-850 MG TABS 1 po bid 0 3 PIOGLITAZONE HCL-METFORMIN HCL 68910436613 Stefany Petersen GLIPIZIDE 10 MG TABS 1 po bid 0 3 GLIPIZIDE 68382689401 Stefany Petersen DOXYCYCLINE MONOHYDRATE 100 MG CAPS 0 3 DOXYCYCLINE MONOHYDRATE 12574376978 Stefany Petersen SYMBICORT 80-4.5 MCG/ACT AERO 0 3 BUDESONIDE-FORMO TEROL FUMARATE 40524687128 Stefany Petersen SPIRIVA HANDIHALER 18 MCG CAPS 1 po qd 0 7 TIOTROPIUM BROMIDE MONOHYDRATE 41238303973 Stefany Petersen PROAIR HFA 108 (90 Base) MCG/ACT INHALATION AEROSOL SOLUTION 0 3/ ALBUTEROL SULFATE 53803949604 Stefany Petersen DALIRESP 500 MCG TABS 1 po qd 12/05 ROFLUMILAST 55534154293 Stefany Petersen ITRACONAZOLE 100 MG CAPS 1 po qid 0/10 ITRACONAZOLE 75098727148 Stefany G Medications Administered No information available. [...] Procedures Code Procedure Name Date Entry Date 37364 Hepatitis C Atb: (ICD 10 Code: Z11.59) 20 23/04/29 CPT-03615 CMP CPT-31530 Itraconazole Level 4 CPT-03328 CMP CPT-59884 Itraconazole Level 8 CPT-98553 Itraconazole Level 6 CPT-92234 Itraconazole Level 6 CPT-60491 CMP [id number] CBC with Differential 2015 CPT-79439 Itraconazole Level 3 CPT-cdpcr C-Diff PCR Vital [...] Directive Description Start Date DURABLE POWER OF FORESTRY PILOT LIVING WILL ON FILE
--- OUTSIDE RECORDS SUMMARY | 2025-08-13 07:40 | XMS_ITS | Referral Summary ---
Author Organization [facility] ([place], [place], [place], [place], [place]) Address [address] [place] [address] Care Team Providers Care Core Finisher Name Role Phone Unavailable Primary Care Provider [...] (02/01/2023): Added automatically from request for surgery [id number] Social History Tobacco Use Types Packs/Day Years [...] Date Garcia rded Speak language other than Bermudian at home Not on file 10/27/2023 Want [...] A1C 8.0 % 02/02/2023 11:14 AM EDT [facility] Comment: Hemoglobin A1C levels are related to mean glucose during the preceding 2-3 months. Less than 7% demonstrates glycemic control in diabetic patients. 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 May use BiPAP/CPAP Call BOSS MINER * Full Code Date Activated Date Inactivated Comments 01/31/2023 8:28 PM 01/31/2023 9:46 PM Healthcare Agents on File Name Relationship Healthcare Agent Relationshi p Communication Rafael Fernandez Son First Alternate Healthcare Decision-Maker Cony Rebecca [id number] Second Alternate Healthcare Decision-Maker
--- OUTSIDE RECORDS SUMMARY | 2025-08-13 07:40 | XMS_ITS | Clinical Summary ---
Author Organization [facility] Address [address] [place] [address] Care Team Providers Care Auto Haulaway Driver Name Role Phone Provider, No Known Primary [...] (1 - 2023- season) 2025 Insurance MEDICAID [place] [employer] MEDICARE ADVANTAGE Care Teams Auto Haulaway Driver Relationship Specialty Start Date End Date Provider, No Known [facility] [place] [address] PCP - General 12/10/15
--- OUTSIDE RECORDS SUMMARY | 2025-08-13 07:40 | XMS_ITS | Clinical Summary ---
Author Organization [facility] ([place], [place], [place], [place], [place]) Address [address] [place] [address] Care Team Providers Care Room Cleaner Name Role Phone Unavailable Primary Care Provider [...] (02/01/2023): Added automatically from request for surgery [id number] Social History Tobacco Use Types Packs/Day Years [...] Date Garcia rded Speak language other than Egyptian at home Not on file 10/27/2023 Want [...] A1C 8.0 % 02/02/2023 11:14 AM EDT [facility] Comment: Hemoglobin A1C levels are related to mean glucose during the preceding 2-3 months. Less than 7% demonstrates glycemic control in diabetic patients. Hemoglobin AlC % Suggested Diagnosis > or = 6.5 Diabetic 5.7 - 6.4 Prediabetic <5.7 Non-diabetic eAVG Glucose 182.9 mg/dL 02/02/2023 11:14 AM EDT [facility] Blood Venipuncture / Unknown 02/02/2023 3:00 AM EDT 02/02/2023 3:05 AM EDT Marylou Werner MD LAB BLOOD ORDERABLES Final R esult [facility] [address] [phone] from Last 3 Months or Most Recently Relevant to Health Maintenance Insurance HUMAN MEDICARE PPO MEDICAID OF [place] Advance Directives For more information, please contact: [phone] Documents on File Type Date Recorded 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 May use BiPAP/CPAP Call RISK CONTROL REPRESENTATIVE * Full Code Date Activated Date Inactivated Comments 01/31/2023 8:28 PM 01/31/2023 9:46 PM Healthcare Agents on File Name Relationship Healthcare Agent Relationshi p Communication Rafael Fernandez Son First Alternate Healthcare Decision-Maker Cony Rebecca [id number] Second Alternate Healthcare Decision-Maker
--- OUTSIDE RECORDS SUMMARY | 2025-08-13 07:40 | XMS_ITS | Clinical Summary ---
Author Organization [facility] Address [address] [place] [address] Care Team Providers Care Mechanical Designer Name Role Phone Tonya Freeman APRN Primary Care Provider + [phone] Social History Tobacco Use Types Packs/Day Years Used Date Smoking Tobacco: Never Assessed Comments Unknown Sex and Gender Information Value Date Recorded Sex Assigned at Not on file Legal Sex Female 7:29 PM EDT Gender Identity Not on file Sexual Orientation Not on file Plan of Treatment Not on file Care Teams Mechanical Designer Relationship Specialty Start Date End Date Tonya Freeman APRN [address] [place] [address] PCP - General 02/19/21
--- NOTE | 2025-08-13 08:00 | PC.NURSE ---
DR KIRKPATRICK SPEAKING WITH FAMILY
[2025-08-13] MEDS: LACTATED RINGERS 1000ML 500 ML IV (08:30)
[2025-08-13 08:51] LABS: Occult Blood,Stool Positive (Negative)
[2025-08-13] MEDS: PANTOPRAZOLE SODIUM 80 MG in 0.9 % SODIUM CHLORIDE 100 ML 10 MG IV (08:52)
[2025-08-13 09:07] LABS: Reflex Lactic Add Lactic Reflex
--- NOTE | 2025-08-13 09:23 | P.CONPHA_ITS ---
Pharmacy Intervention Comments: MEDICATION RECONCILIATION COMPLETED ON PATIENT USING MAR FROM [facility]IDENT[facility]. -AYE SHEARER, [facility]
--- NOTE | 2025-08-13 09:23 | HMH.PHAINT1 ---
Pharmacy Intervention Comments: MEDICATION RECONCILIATION COMPLETED ON PATIENT USING MAR FROM ALF. -AYE SHEARER, [facility]
--- NOTE | 2025-08-13 09:24 | SW/DCPLANNER ---
Addendum entered by Gavi Alvarez 08/18/25 11:07: I have updated Christen castrejon/ [facility] and [facility]ae castrejon/ Hospice that patient will discharge today. Addendum entered by Gavi Alvarez 08/18/25 08:10: I received a Hospice consult for this patient. Updated patient information has been faxed to Lashae castrejon/ Hospice and [facility]. CM will continue to follow up. Addendum entered by Gavi Alvarez 08/14/25 07:37: Updated patient information faxed to [facility]. Original Note: Patient currently resides at [facility] level of care. Updated patient information has been faxed to Christen Hood. Discharge date is unknown at this time. CM will continue to follow up.
[2025-08-13] MEDS: AZITHROMYCIN 500 MG in 0.9 % SODIUM CHLORIDE 250 ML 250 MG IV (09:44)
[2025-08-13] MEDS: LOKELMA 5GM PACKET 10 GM PO (09:45)
[2025-08-13 09:48] LABS: Hematocrit 24.8 % (37.0-47.0)
[2025-08-13 09:55] LABS: Hemoglobin 8.0 g/dL (12.2-16.2)
[2025-08-13] MEDS: IRON SUCROSE COMPLEX 200 MG in 0.9 % SODIUM CHLORIDE 100 ML 220 MG IV (09:55)
[2025-08-13 09:59] LABS: Reticulocyte % (Auto) 6.4 % (0.9-3.2)
[2025-08-13 10:21] LABS: Iron 258 ug/dL (37-170)
[2025-08-13 10:29] LABS: Potassium 6.4 mmoL/L (3.5-5.1)
[2025-08-13 10:31] LABS: Total Iron Binding Capacity 307 ug/dL (265-497)
[2025-08-13 10:34] LABS: Troponin I < 0.01 ng/ml (0.00-0.034)
[2025-08-13 10:57] LABS: Ferritin 25.9 ng/ml (11.1-264)
[2025-08-13 11:14] LABS: Vitamin B12 934 pg/mL (239-931)
--- NOTE | 2025-08-13 11:15 | EXP.GE.CONS ---
History of Present Illness *Admission Date: 08/13/25 *History of present illness: Mrs. Fernandez is a 75-year-old female inpatient in ICU secondary to hypotension/hypovolemia on pressors. The patient was [facility] with altered mental status. She also had low blood pressure and reduced oxygen saturation. The patient's initial hemoglobin was 4. According to notes, the patient has not had any hematochezia or bright red blood per rectum but has had some dark stools. The patient is a poor historian. The patient does not report any abdominal pain. The patient is on Plavix and oral iron. Her labs showed hemoglobin 4.1 and hematocrit 14.2 with MCV 100 (macrocytic indices). She is Hemoccult positive. Her serum iron on 02/2025 was 258 with iron saturation 84%. Patient was refusing aggressive measures yesterday and was sent home but returned. The patient does have a son who is the power of corporate attorney and I have spoken with him. [facility] Disclaimer: The information contained in this section may have been updated after the patient was seen, as this information can be updated by other users. Medical History (Updated 08/13/25 @ 11:19 by Van Patel II, MD) COPD (chronic obstructive pulmonary disease) Tobacco abuse Chronic kidney disease Pneumonia Major depression, recurrent Blastomycosis Peripheral neuropathy Overactive bladder GERD (gastroesophageal reflux disease) Vitamin D deficiency Congestive heart failure Portal hypertension Impaired mobility Acute exacerbation of chronic obstructive airways disease COPD exacerbation UTI (urinary tract infection) Body mass index (BMI) greater than 40 Muscle weakness (generalized) Anemia, unspecified Other low back pain Sleep apnea History of COVID-19 Chronic cough Asthma History of diverticulitis History of cataract Allergies Hyperlipidemia Hypertension Edema Skin cancer Breast cancer Metatarsalgia of both feet Onychomycosis of toenail Type 2 diabetes mellitus, with long-term current use of insulin Diabetic foot Diastolic dysfunction CAD (coronary artery disease) History of noncompliance with medical treatment Intermittent palpitations Surgical History H/O bilateral mastectomy (~02/2012) H/O: hysterectomy History of dental surgery History of surgical removal of lesion History of carpal tunnel release History of cholecystectomy History of bladder surgery Family History Mother Hypertension Cancer Sister Cancer Father Cancer Son Cancer Social History Smoking Status: Current every day smoker tobacco type: cigarettes packs per day: 2 second hand exposure: Yes alcohol intake: never substance use type: denies use current occupational status: disabled Travel in the last 8 weeks?: None household members: none housing: [facility] number of children: 3 current occupational exposures/hazards: No caffeine: Yes special adam needs: No agree to transfusion: No additional social history: 1 son Meds Home Medications and Allergies Home Medications ?Medication ?Instructions ?Recorded ?Confirmed ?Type montelukast 10 mg tablet 10 mg PO HS 11/01/22 08/13/25 History oxybutynin chloride 10 mg 10 mg PO DAILY 11/01/22 08/13/25 History tablet,extended release 24 hr pantoprazole 40 mg tablet,delayed 40 mg PO DAILY 11/01/22 08/13/25 History release roflumilast 500 mcg tablet 500 mcg PO DAILY 11/01/22 08/13/25 History gabapentin 300 mg capsule 300 mg PO TID #90 caps 05/27/25 08/13/25 Rx clopidogrel 75 mg tablet (Plavix) 75 mg PO DAILY 05/28/25 08/13/25 History ferrous sulfate 325 mg (65 mg 325 mg PO BID 05/28/25 08/13/25 History iron) tablet pramipexole 0.125 mg tablet 0.125 mg PO HS 05/28/25 08/13/25 History trazodone 50 mg tablet 50 mg PO HS 05/28/25 08/13/25 History budesonide-formoterol HFA 160 2 puff inhalation BID #10.2 grams 06/10/25 08/13/25 Rx mcg-4.5 mcg/actuation aerosol inhaler (Symbicort) cholecalciferol (vitamin D3) 25 25 mcg PO DAILY #30 caps 06/10/25 08/13/25 Rx mcg (1,000 unit) capsule acetaminophen 500 mg tablet 500 mg PO Q8HP PRN Mild Pain 06/23/25 08/13/25 History (Scale Score 1-4) insulin NPH-regular 70-30 U-100 24 unit SQ DAILY 06/23/25 08/13/25 History insulin 100 unit/mL subcutaneous pen (Novolin 70-30 FlexPen U-100 Insulin) insulin glargine 100 unit/mL (3 22 unit SQ BID 06/23/25 08/13/25 History mL) subcutaneous pen (Lantus Solostar U-100 Insulin) nadolol 20 mg tablet 20 mg PO BID 06/23/25 08/13/25 History nitroglycerin 0.4 mg sublingual 0.4 mg sublingual Q5-15M PRN Chest 06/23/25 08/13/25 History tablet Pain sennosides 8.6 mg tablet (senna) 8.6 mg PO DAILY 06/23/25 08/13/25 History torsemide 100 mg tablet 50 mg PO DAILY 06/23/25 08/13/25 History umeclidinium 62.5 mcg/actuation 1 inh inhalation DAILY 06/23/25 08/13/25 History blister powder for inhalation (Incruse Ellipta) venlafaxine 150 mg 150 mg PO DAILY 06/23/25 08/13/25 History capsule,extended release 24 hr azithromycin 250 mg tablet 250 mg PO DAILY 08/13/25 08/13/25 History (Zithromax Z-Terry) cetirizine 10 mg tablet (Zyrtec) 10 mg PO DAILY 08/13/25 08/13/25 History insulin aspart U-100 100 unit/mL 0 unit SQ DIRECTED 08/13/25 08/13/25 History (3 mL) subcutaneous pen (Novolog FlexPen U-100 Insulin aspart) levofloxacin 750 mg tablet 750 mg PO DAILY 08/13/25 08/13/25 History ondansetron HCl 4 mg tablet 4 mg PO Q6HP PRN Nausea And 08/13/25 08/13/25 History Vomiting polyethylene glycol 3350 17 gram 17 g PO DAILY 08/13/25 08/13/25 History oral powder packet potassium chloride 20 mEq 20 meq PO DAILY 08/13/25 08/13/25 History tablet,extended release(part/cryst) New Prescriptions to Start Prescriptions: Allergies Allergy/AdvReac Type Severity Reaction Status Date / Time acetaminophen (From Tylox) Allergy Verified 06/23/25 11:27 metformin Allergy Verified 06/23/25 11:27 Penicillins Allergy Verified 06/23/25 11:27 sitagliptin (From Januvia) Allergy Verified 06/23/25 11:27 oxycodone (From PERCOCET) AdvReac Unknown Verified 06/23/25 11:27 Exam (Inpt) Vital signs and Labs for Last 24 Hours: Temp Pulse Resp BP Pulse Ox O2 Del Method O2 Flow Rate 97.9 F 67 18 128/53 L 98 Nasal Cannula 3 08/13/25 07:40 08/13/25 09:00 08/13/25 09:00 08/13/25 09:00 08/13/25 09:00 08/13/25 09:00 08/13/25 09:00 Laboratory Results - last 24 hr 08/13/25 04:50: WBC 15.6 H, RBC 1.42 L*, Hgb 4.1 L*, Hct 14.2 L*, MCV 100.0 H, MCH 28.9, MCHC 28.9 L, RDW 17.2, Plt Count 172, MPV 11.6 H, Neut % (Auto) 74.9, Lymph % (Auto) 18.6, [place] % (Auto) 5.2, Eos % (Auto) 0.1, Baso % (Auto) 0.1, Neut # (Auto) 11.7 H, Lymph # (Auto) 2.9, [place] # (Auto) 0.8, Eos # (Auto) 0.0, Baso # (Auto) 0.0, PT 13.3 H, INR 1.22 H, Sodium 133 L, Potassium 7.2 H* 08/13/25 04:50: Potassium Cancelled, Chloride 95 L, Carbon Dioxide 36 H, Anion Gap 9.2, BUN 104 H*, Creatinine 2.30 H, Estimated Creat Clear 19, Estimated GFR 21 L, Est GFR ( Amer) 25 L, Glucose 112 H, Calcium 8.5, Phosphorus 4.8 H, Magnesium 2.4 H, Iron 258 H, TIBC 307, Iron Saturation 84.89848 H, Ferritin 25.9 D, Total Bilirubin 0.2, AST 53 H, ALT 28, Alkaline Phosphatase 93, Troponin I < 0.01, NT-Pro-B Natriuret Pep 1310 H, Total Protein 4.9 L, Albumin 2.9 L, Globulin 2.0, Albumin/Globulin Ratio 1.5, Lipase 43 08/13/25 04:54: Urine Color Yellow, Urine Appearance Clear, Urine pH 5.5, Ur Specific [place] 1.020, Urine Protein Negative, Urine Glucose (UA) Negative, Urine Ketones Negative, Urine Blood Negative, Urine Nitrate Negative, Urine Bilirubin Negative, Urine Urobilinogen 0.2, Ur Leukocyte Esterase Negative 08/13/25 04:55: VBG pH 7.33, VBG pCO2 64.7 H, VBG pO2 68.8 H, VBG HCO3 33.6 H, VBG Total CO2 35.6 H, VBG O2 Saturation 91.1 H, VBG Base Excess 7.7 H, VBG Lactic Acid 3.1 H, SARS-CoV-2 (PCR) Not detected, Influenza A Untype (PCR) Not detected, Influenza Type B (PCR) Not detected 08/13/25 05:10: Hgb 4.1 L*, Hct 14.1 L* 08/13/25 05:15: Blood Type O Positive, Blood Type Confirm O Positive, Antibody Screen Negative, Crossmatch (AHG) See Detail 08/13/25 06:57: POC Glucose 227 H 08/13/25 08:30: Stool Occult Blood Positive A 08/13/25 09:30: Hgb 8.0 L D, Hct 24.8 L, Retic Count (auto) 6.4 H, Potassium 6.4 H*, Troponin I < 0.01 I & O for Labs for Last 24 Hours: Intake & Output 08/10/25 08/11/25 08/12/25 08/13/25 22:59 23:59 23:59 23:59 Intake Total 660 / 660 Output Total 300 / 300 Balance 360 / 360 Weight 231 lb 14.4 oz Comment:: Lethargic but in no acute distress Comments:: Normoactive bowel sounds, soft, benign abdomen Results Labs 08/13/25 09:30 08/13/25 09:30 Labs: Laboratory Results - last 24 hr 08/13/25 04:50: WBC 15.6 H, RBC 1.42 L*, Hgb 4.1 L*, Hct 14.2 L*, MCV 100.0 H, MCH 28.9, MCHC 28.9 L, RDW 17.2, Plt Count 172, MPV 11.6 H, Neut % (Auto) 74.9, Lymph % (Auto) 18.6, [place] % (Auto) 5.2, Eos % (Auto) 0.1, Baso % (Auto) 0.1, Neut # (Auto) 11.7 H, Lymph # (Auto) 2.9, [place] # (Auto) 0.8, Eos # (Auto) 0.0, Baso # (Auto) 0.0, PT 13.3 H, INR 1.22 H, Sodium 133 L, Potassium 7.2 H* 08/13/25 04:50: Potassium Cancelled, Chloride 95 L, Carbon Dioxide 36 H, Anion Gap 9.2, BUN 104 H*, Creatinine 2.30 H, Estimated Creat Clear 19, Estimated GFR 21 L, Est GFR ( Amer) 25 L, Glucose 112 H, Calcium 8.5, Phosphorus 4.8 H, Magnesium 2.4 H, Iron 258 H, TIBC 307, Iron Saturation 84.62923 H, Ferritin 25.9 D, Total Bilirubin 0.2, AST 53 H, ALT 28, Alkaline Phosphatase 93, Troponin I < 0.01, NT-Pro-B Natriuret Pep 1310 H, Total Protein 4.9 L, Albumin 2.9 L, Globulin 2.0, Albumin/Globulin Ratio 1.5, Lipase 43 08/13/25 04:54: Urine Color Yellow, Urine Appearance Clear, Urine pH 5.5, Ur Specific [place] 1.020, Urine Protein Negative, Urine Glucose (UA) Negative, Urine Ketones Negative, Urine Blood Negative, Urine Nitrate Negative, Urine Bilirubin Negative, Urine Urobilinogen 0.2, Ur Leukocyte Esterase Negative 08/13/25 04:55: VBG pH 7.33, VBG pCO2 64.7 H, VBG pO2 68.8 H, VBG HCO3 33.6 H, VBG Total CO2 35.6 H, VBG O2 Saturation 91.1 H, VBG Base Excess 7.7 H, VBG Lactic Acid 3.1 H, SARS-CoV-2 (PCR) Not detected, Influenza A Untype (PCR) Not detected, Influenza Type B (PCR) Not detected 08/13/25 05:10: Hgb 4.1 L*, Hct 14.1 L* 08/13/25 05:15: Blood Type O Positive, Blood Type Confirm O Positive, Antibody Screen Negative, Crossmatch (AHG) See Detail 08/13/25 06:57: POC Glucose 227 H 08/13/25 08:30: Stool Occult Blood Positive A 08/13/25 09:30: Hgb 8.0 L D, Hct 24.8 L, Retic Count (auto) 6.4 H, Potassium 6.4 H*, Troponin I < 0.01 Assessment and Plan *Assessment and plan (1) Anemia due to gastrointestinal blood loss: Status: Acute Category: Medical Code(s): D50.0 - Iron deficiency anemia secondary to blood loss (chronic) (2) Occult blood positive stool: Status: Acute Category: Medical Code(s): R19.5 - Other fecal abnormalities Plan 1. Anemia with occult positive stools. I did speak with her son who is the power of corporate attorney and indicated that we should do EGD. She has been on anticoagulation with Plavix. Her iron studies show increased serum iron of 258 with iron saturation of 84%. I would stop oral iron presently. I would recommend that she be stabilized and off of pressors before we do EGD. We will also need informed consent signed by the patient (if cognitively aware) or from her son/power of corporate attorney.
[2025-08-13 11:25] LABS: Folate > 20.00 ng/mL
[2025-08-13 12:47] LABS: Hematocrit 23.4 % (37.0-47.0); Hemoglobin 7.5 g/dL (12.2-16.2)
--- NOTE | 2025-08-13 13:04 | CA_ITS ---
APPROVED REPORT EXAM: Comprehensive 2D, Doppler, and color-flow Echocardiogram Photographic Aide: Sylvia Ho, RT(R) Ht: 5 ft 1 in Wt: 231lbs BSA: 2.01 BP: 128/53 mmHg Indications: HFpEF, hypotension, hemoglobin 4.1, CAD, hx of bilateral mastectomies, COPD 2D Dimensions Left Atrium 4.88 cm F: 2.7 - 3.8 LVEF (Zabala's) 57.00 % F: 54 - 74 LVOT 1.94 cm (M/F) 1.5-2.5 LV Volume 101.50 mL F: 46 - 106 LV Volume Index 50.5 mL/m2 F: 29 - 61 EF AP4 42.10 % EF AP2 71.6 % EF BP 57.0 % GL Strain -19.4 % M-Mode Dimensions RVDd 3.41 cm (0.9-2.6) LVDd 4.62 cm (3.5-5.7) Ao Diam 2.78 cm (2.0-3.7) LVDs 3.13 cm (3.5-5.7) IVSd 0.68 cm (0.6-1.1) PWd 0.72 cm (0.6-1.1) EF (Teich) 60.50% FS 32.30% EDV (Teich) 98.30 mL ESV (Teich) 38.80 mL LV Diastology E Decel Time 242 (160-240 msec) E/A Ratio 1.0 MED E' 9.2 (>= 7 cm/sec) E'/MED E' Ratio 13.04 (<= 14) LAT E' 9.3 (>= 10 cm/sec) E/LAT E' Ratio 12.90 (<= 14) Mitral Valve MV E Max Brennon. 120.0 (40-130 cm/s) MV A Velocity 125.0 (40-130 cm/s) E/A Ratio 0.96 MV Decel. Time 242 (160-240 ms) MV PHT 86.0 ms Tricuspid Valve TR P. Velocity 370.00 cm/s Left Ventricle The left ventricle is normal size. Left ventricular systolic function is hyperdynamic. There is normal left ventricular wall thickness. There is normal LV segmental wall motion. The left ventricular diastolic function is normal. LVEF is 70% Right Ventricle The right ventricle is mildly dilated. The right ventricular systolic function is normal. Atria The left atrium is moderately dilated. The right atrium is moderately dilated. There is no color Doppler evidence of interatrial shunt. Aortic Valve The aortic valve is mildly thickened. There is no hemodynamically significant aortic valvular stenosis. Trace aortic regurgitation is present. Mitral Valve The mitral valve is normal in structure. No evidence of mitral valve stenosis. Trace mitral regurgitation is present. Tricuspid Valve The tricuspid valve leaflets are thin and pliable. Trace tricuspid regurgitation. There is insufficient TR jet to estimate RVSP. Pulmonic Valve The pulmonary valve is grossly normal in structure. Mild pulmonic valve regurgitation is present. Great Vessels The aortic root is normal in size. The ascending aorta is mildly dilated, measuring 4.0 cm in diameter. IVC is normal in size and collapses >50% with inspiration. Pericardium There is no pericardial effusion. Other Information Study Quality: Fair Conclusion Hyperdynamic LV systolic function (LVEF 70%). Mild RV dilation with normal RV function. Biatrial dilation. Mild PI. The ascending aorta is mildly dilated, measuring 4.0 cm in diameter. Correlation with new or recent CTA chest is suggested. Electronically signed by : Erinn Beard MD 08/14/2025 12:51:47
[2025-08-13] MEDS: LACTATED RINGERS 1000ML 500 ML 250 ML IV (13:05)
--- NOTE | 2025-08-13 13:05 | EXP.CARD.CON ---
History of Present Illness History of Present Illness Consult date: 08/13/25 Requesting physician: Van Patel II Consult reason: pre-op evaluation Chief complaint: Severe anemia, HFpEF, preop evaluation Additional Medical History:: 1. Normal coronaries by cardiac cath 2015 2. History of COPD and BUDDY for which she refuses CPAP 3. History of CKD with baseline creatinine 1.1 4. History of cirrhosis 5. History of HFpEF 6. History of diabetes mellitus 7. History of breast cancer 8. Carotid artery stenosis in 2018 with LICA less than 20%, R ICA 20 to 49% 9. History of hyperkalemia, 2022 with potassium level of 9 History of present illness: This is a 75-year-old female who is known to our service line and has a past medical history significant for COPD, obesity, chronic kidney disease, GERD, vitamin D deficiency, congestive heart failure with diastolic dysfunction, hypertension, anemia, GERD, vitamin D deficiency, asthma, diverticulitis, skin cancer, breast cancer, diabetes, and coronary artery disease who presents with a chief complaint of altered mental status. Due to patient's altered mental status, her review of systems is limited; as a result, the majority of information obtained from the ER provider, chart review, and son at the bedside. According to ER provider, patient was transition to [facility] due to altered mental status, low blood pressure, oxygen saturation in the 70s, and high heart rate. Presenting to [facility], patient's blood pressure was in the 200s systolic and then a downward trended to 70 systolic. Patient's hemoglobin was 4 and her potassium was 7. Due to these findings, patient is being admitted for further management. During my evaluation of the patient, she could provide no meaningful data. She was lethargic and intermittently alert. I spoke with son at the bedside who voiced his mom did not want any aggressive treatment. He states that she did have a potassium of 9 in the past. Review of patient's home medication shows she is currently prescribed an ADELE inhibitor and supplemental potassium. Patient is very restless and appears to be [place] n[place]. ER provider states that staff at the nursing facility reports patient had some GI bleeding (is not clear on if the stool was dark or bright red blood). Additional pertinent values include blood pressure of 78/33, white blood cell count of 15.6, red blood cell count of 1.42, hemoglobin of 4.1, hematocrit 14.2, INR 1.22, sodium 133, potassium 7.2, 95, carbon oxide of 36, BUN of 104, creatinine of 2.30, GFR of 21, blood glucose of 112, phosphorus of 4.8, magnesium of 2.4, AST of 53, BNP of 1310,Hypokalemia patient total protein of 4.9, and albumin of 2.9. CT scan of the head was negative for any acute intracranial process. Plain films of the chest revealed bilateral perihilar opacity and worsening left base opacity concerning for pneumonia with small left pleural effusion. The above per Navjot Moura APRN for the hospitalist service Cardiology consulted by Dr. Patel for preop evaluation prior to EGD. Patient is currently on pressors for blood pressure support. Troponins are normal this admission. She has been transfused from hemoglobin of 4.1 up to 7.5 Hyperkalemia with potassium of 7.2 on admission and is now down to 6.4. Peaked T waves on EKG seem to be improving on EKG today today compared to admission. [facility] Disclaimer: The information contained in this section may have been updated after the patient was seen, as this information can be updated by other users. Medical History (Updated 08/13/25 @ 13:31 by VANI Peres) COPD (chronic obstructive pulmonary disease) Tobacco abuse Chronic kidney disease Pneumonia Major depression, recurrent Blastomycosis Peripheral neuropathy Overactive bladder GERD (gastroesophageal reflux disease) Vitamin D deficiency Congestive heart failure Portal hypertension Impaired mobility Acute exacerbation of chronic obstructive airways disease COPD exacerbation UTI (urinary tract infection) Body mass index (BMI) greater than 40 Muscle weakness (generalized) Anemia, unspecified Other low back pain Sleep apnea History of COVID-19 Chronic cough Asthma History of diverticulitis History of cataract Allergies Hyperlipidemia Hypertension Edema Skin cancer Breast cancer Metatarsalgia of both feet Onychomycosis of toenail Type 2 diabetes mellitus, with long-term current use of insulin Diabetic foot Diastolic dysfunction CAD (coronary artery disease) History of noncompliance with medical treatment Intermittent palpitations Surgical History H/O bilateral mastectomy (~02/2012) H/O: hysterectomy History of dental surgery History of surgical removal of lesion History of carpal tunnel release History of cholecystectomy History of bladder surgery Family History Mother Hypertension Cancer Sister Cancer Father Cancer Son Cancer Social History Smoking Status: Current every day smoker tobacco type: cigarettes packs per day: 2 second hand exposure: Yes alcohol intake: never substance use type: denies use current occupational status: disabled Travel in the last 8 weeks?: None household members: none housing: [facility] number of children: 3 current occupational exposures/hazards: No caffeine: Yes special adam needs: No agree to transfusion: No additional social history: 1 son Review of Systems Review of Systems Review of systems:: unable to obtain Exam Data for Last 24 hours Vital signs and Labs for Last 24 Hours: Temp Pulse Resp BP Pulse Ox O2 Del Method O2 Flow Rate 97.8 F 74 19 108/76 L 98 Nasal Cannula 3 08/13/25 12:00 08/13/25 12:00 08/13/25 12:00 08/13/25 12:00 08/13/25 12:00 08/13/25 12:00 08/13/25 12:00 Laboratory Results - last 24 hr 08/13/25 04:50: WBC 15.6 H, RBC 1.42 L*, Hgb 4.1 L*, Hct 14.2 L*, MCV 100.0 H, MCH 28.9, MCHC 28.9 L, RDW 17.2, Plt Count 172, MPV 11.6 H, Neut % (Auto) 74.9, Lymph % (Auto) 18.6, [place] % (Auto) 5.2, Eos % (Auto) 0.1, Baso % (Auto) 0.1, Neut # (Auto) 11.7 H, Lymph # (Auto) 2.9, [place] # (Auto) 0.8, Eos # (Auto) 0.0, Baso # (Auto) 0.0, PT 13.3 H, INR 1.22 H, Sodium 133 L, Potassium 7.2 H* 08/13/25 04:50: Potassium Cancelled, Chloride 95 L, Carbon Dioxide 36 H, Anion Gap 9.2, BUN 104 H*, Creatinine 2.30 H, Estimated Creat Clear 19, Estimated GFR 21 L, Est GFR ( Amer) 25 L, Glucose 112 H, Calcium 8.5, Phosphorus 4.8 H, Magnesium 2.4 H, Iron 258 H, TIBC 307, Iron Saturation 84.44271 H, Ferritin 25.9 D, Total Bilirubin 0.2, AST 53 H, ALT 28, Alkaline Phosphatase 93, Troponin I < 0.01, NT-Pro-B Natriuret Pep 1310 H, Total Protein 4.9 L, Albumin 2.9 L, Globulin 2.0, Albumin/Globulin Ratio 1.5, Lipase 43, Vitamin B12 934 H, Folate > 20.00 08/13/25 04:54: Urine Color Yellow, Urine Appearance Clear, Urine pH 5.5, Ur Specific [place] 1.020, Urine Protein Negative, Urine Glucose (UA) Negative, Urine Ketones Negative, Urine Blood Negative, Urine Nitrate Negative, Urine Bilirubin Negative, Urine Urobilinogen 0.2, Ur Leukocyte Esterase Negative 08/13/25 04:55: VBG pH 7.33, VBG pCO2 64.7 H, VBG pO2 68.8 H, VBG HCO3 33.6 H, VBG Total CO2 35.6 H, VBG O2 Saturation 91.1 H, VBG Base Excess 7.7 H, VBG Lactic Acid 3.1 H, SARS-CoV-2 (PCR) Not detected, Influenza A Untype (PCR) Not detected, Influenza Type B (PCR) Not detected 08/13/25 05:10: Hgb 4.1 L*, Hct 14.1 L* 08/13/25 05:15: Blood Type O Positive, Blood Type Confirm O Positive, Antibody Screen Negative, Crossmatch (AHG) See Detail 08/13/25 06:57: POC Glucose 227 H 08/13/25 08:30: Stool Occult Blood Positive A 08/13/25 09:30: Hgb 8.0 L D, Hct 24.8 L, Retic Count (auto) 6.4 H, Potassium 6.4 H*, Troponin I < 0.01 08/13/25 12:30: Hgb 7.5 L, Hct 23.4 L I & O for Last 24 hours: Intake & Output 08/11/25 08/12/25 08/13/25 08/14/25 11:59 11:59 11:59 11:59 Intake Total 1160 / 1160 Output Total 300 / 300 Balance 860 / 860 Weight 231 lb 14.4 oz Meds Home Medications and Allergies Home Medications ?Medication ?Instructions ?Recorded ?Confirmed ?Type montelukast 10 mg tablet 10 mg PO HS 11/01/22 08/13/25 History oxybutynin chloride 10 mg 10 mg PO DAILY 11/01/22 08/13/25 History tablet,extended release 24 hr pantoprazole 40 mg tablet,delayed 40 mg PO DAILY 11/01/22 08/13/25 History release roflumilast 500 mcg tablet 500 mcg PO DAILY 11/01/22 08/13/25 History gabapentin 300 mg capsule 300 mg PO TID #90 caps 05/27/25 08/13/25 Rx clopidogrel 75 mg tablet (Plavix) 75 mg PO DAILY 05/28/25 08/13/25 History ferrous sulfate 325 mg (65 mg 325 mg PO BID 05/28/25 08/13/25 History iron) tablet pramipexole 0.125 mg tablet 0.125 mg PO HS 05/28/25 08/13/25 History trazodone 50 mg tablet 50 mg PO HS 05/28/25 08/13/25 History budesonide-formoterol HFA 160 2 puff inhalation BID #10.2 grams 06/10/25 08/13/25 Rx mcg-4.5 mcg/actuation aerosol inhaler (Symbicort) cholecalciferol (vitamin D3) 25 25 mcg PO DAILY #30 caps 06/10/25 08/13/25 Rx mcg (1,000 unit) capsule acetaminophen 500 mg tablet 500 mg PO Q8HP PRN Mild Pain 06/23/25 08/13/25 History (Scale Score 1-4) insulin NPH-regular 70-30 U-100 24 unit SQ DAILY 06/23/25 08/13/25 History insulin 100 unit/mL subcutaneous pen (Novolin 70-30 FlexPen U-100 Insulin) insulin glargine 100 unit/mL (3 22 unit SQ BID 06/23/25 08/13/25 History mL) subcutaneous pen (Lantus Solostar U-100 Insulin) nadolol 20 mg tablet 20 mg PO BID 06/23/25 08/13/25 History nitroglycerin 0.4 mg sublingual 0.4 mg sublingual Q5-15M PRN Chest 06/23/25 08/13/25 History tablet Pain sennosides 8.6 mg tablet (senna) 8.6 mg PO DAILY 06/23/25 08/13/25 History torsemide 100 mg tablet 50 mg PO DAILY 06/23/25 08/13/25 History umeclidinium 62.5 mcg/actuation 1 inh inhalation DAILY 06/23/25 08/13/25 History blister powder for inhalation (Incruse Ellipta) venlafaxine 150 mg 150 mg PO DAILY 06/23/25 08/13/25 History capsule,extended release 24 hr azithromycin 250 mg tablet 250 mg PO DAILY 08/13/25 08/13/25 History (Zithromax Z-Terry) cetirizine 10 mg tablet (Zyrtec) 10 mg PO DAILY 08/13/25 08/13/25 History insulin aspart U-100 100 unit/mL 0 unit SQ DIRECTED 08/13/25 08/13/25 History (3 mL) subcutaneous pen (Novolog FlexPen U-100 Insulin aspart) levofloxacin 750 mg tablet 750 mg PO DAILY 08/13/25 08/13/25 History ondansetron HCl 4 mg tablet 4 mg PO Q6HP PRN Nausea And 08/13/25 08/13/25 History Vomiting polyethylene glycol 3350 17 gram 17 g PO DAILY 08/13/25 08/13/25 History oral powder packet potassium chloride 20 mEq 20 meq PO DAILY 08/13/25 08/13/25 History tablet,extended release(part/cryst) New Prescriptions to Start Prescriptions: Allergies Allergy/AdvReac Type Severity Reaction Status Date / Time acetaminophen (From Tylox) Allergy Verified 06/23/25 11:27 metformin Allergy Verified 06/23/25 11:27 Penicillins Allergy Verified 06/23/25 11:27 sitagliptin (From Januvia) Allergy Verified 06/23/25 11:27 oxycodone (From PERCOCET) AdvReac Unknown Verified 06/23/25 11:27 Assessment and Plan *Assessment and plan (1) Anemia due to gastrointestinal blood loss: Status: Acute Category: Medical Code(s): D50.0 - Iron deficiency anemia secondary to blood loss (chronic) (2) Hypotension: Status: Acute Qualifiers: Hypotension type: hypotension due to hypovolemia Qualified Code(s): E86.1 - Hypovolemia Category: Medical Code(s): I95.9 - Hypotension, unspecified (3) Acute and chronic respiratory failure with hypercapnia: Status: Acute Category: Medical Code(s): J96.22 - Acute and chronic respiratory failure with hypercapnia (4) Hyperkalemia: Status: Acute Category: Medical Code(s): E87.5 - Hyperkalemia (5) Acute on chronic renal failure: Status: Acute Qualifiers: Acute renal failure type: unspecified Chronic kidney disease stage: unspecified stage Qualified Code(s): N17.9 - Acute kidney failure, unspecified; N18.9 - Chronic kidney disease, unspecified Category: Medical Code(s): N17.9 - Acute kidney failure, unspecified; N18.9 - Chronic kidney disease, unspecified (6) Shock: Status: Acute Category: Medical Code(s): R57.9 - Shock, unspecified (7) AMS (altered mental status): Status: Acute Qualifiers: Altered mental status type: unspecified Qualified Code(s): R41.82 - Altered mental status, unspecified Category: Medical Code(s): R41.82 - Altered mental status, unspecified (8) COPD (chronic obstructive pulmonary disease): Status: Acute Qualifiers: COPD type: unspecified COPD Qualified Code(s): J44.9 - Chronic obstructive pulmonary disease, unspecified Category: Medical Code(s): J44.9 - Chronic obstructive pulmonary disease, unspecified Plan 1. Severe anemia (hemoglobin 4.1 transfused up to 7.5) with occult positive stool -EGD per Dr. Patel in near future -transfusing -IV PPI -Discontinue Plavix (unknown why she is on it per family...no OR/stents/CVA) 2. Hyperkalemia, 7.2 on admission currently 6.4 -improving with hydration and lokelma -Discontinue ADELE inhibitor and potassium supplementation -recurrent issue per family with prior admission in 2022 with K of 9. 3. AMS, multifactorial -anemia -hypotension for which she is currently on Levophed -acute on chronic CKD -possible pneumonia for which she is on ceftriaxone and azithromycin -head CT negative for acute process 4. Normal coronaries in 2016 -Troponins normal here -Check echo 5. COPD with BUDDY -History of refusing CPAP -On Roflumilast 6. Acute on chronic CKD -Baseline creatinine 1.1 with current creatinine of 2.3 and BUN of 104 -Should improve with IV fluids and transfusions 7. HFpEF -Echo pending -On torsemide at home 8. Diabetes mellitus -Hemoglobin A1c 5.7 on 06/02/2025 9. History of carotid artery stenosis -Mild in 2019 Will obtain echocardiogram today Anticipate weaning of Levophed as patient's hemoglobin/fluid status and mentation improves.
[2025-08-13] MEDS: SODIUM CHLORIDE 3% 15ML NEB 3 ML IH (13:17)
--- NOTE | 2025-08-13 13:31 | PC.NURSE ---
ECHO AT BEDSIDE
--- NOTE | 2025-08-13 13:34 | PC.NURSE ---
PT O2 SAT NOTED TO BE 80'S WITH ADEQUATE PLETH. PT PLACED ON NRB MASK AT 15L. MD NOTIFIED OF PT CHANGE. PT RESTLESS. HR 71, B/P 109/85. RESP 20. SATS IMPROVED TO 98%. V/O FOR CXR FROM DR EASTON.
--- NOTE | 2025-08-13 13:37 | XR_ITS ---
FINAL REPORT TECHNIQUE: Single view chest CLINICAL HISTORY: DECREASED O2 SAT FINDINGS: A single view of the chest was obtained. Heart size is stable. There has been interval worsening in bilateral interstitial opacities with worsening bibasilar airspace disease. There may be small pleural effusions. There is no pneumothorax. IMPRESSION: Interval worsening of bilateral interstitial opacities and bibasilar airspace disease with small pleural effusions, favor pulmonary edema. Reviewed, Interpreted and Dictated by Azeb Palacios MD Transcribed by Bertha York Authenticated and [facility]
--- NOTE | 2025-08-13 13:45 | PC.NURSE ---
XR AT BEDSIDE
--- NOTE | 2025-08-13 13:50 | PC.NURSE ---
BRANDON WITH CARDIOLOGY SPEAKING WITH FAMILY
[2025-08-13] MEDS: FUROSEMIDE 20 MG/2 ML VIAL IV (14:35)
[2025-08-13 14:45] LABS: POC Glucose,Bedside 130 gm/dL (70-110)
--- NOTE | 2025-08-13 15:38 | PC.NURSE ---
DR EASTON MADE AWARE OF BP 90/31. IV SITE CHECKED AND PT HAD PULLED OUT. LEVOPHED CHANGED TO RIGHT AC SITE, UPDATED
[2025-08-13 15:39] LABS: Lactic Acid Follow Up (RFLX 1) 0.7 mmol/L (0.7-2.1)
--- NOTE | 2025-08-13 15:56 | P.PN_ITS ---
Subjective *Date: 08/13/25 *Time: 16:52 Interval history: Patient continues to be encephalopathic, hypotensive. Leak was noted IV peripheral side, Levophed weaned to 8 mcg. Ordered additional 2 units PRBC in the setting of shock. Follow-up post H&H transfusion. Exam Data for Last 24 hours Vital signs and Labs for Last 24 Hours: Temp Pulse Resp BP Pulse Ox O2 Del Method O2 Flow Rate 97.8 F 74 16 90/31 L 100 Non-Rebreather 15 08/13/25 12:00 08/13/25 15:08 08/13/25 15:08 08/13/25 15:08 08/13/25 15:08 08/13/25 15:08 08/13/25 15:08 Laboratory Results - last 24 hr 08/13/25 04:50: WBC 15.6 H, RBC 1.42 L*, Hgb 4.1 L*, Hct 14.2 L*, MCV 100.0 H, MCH 28.9, MCHC 28.9 L, RDW 17.2, Plt Count 172, MPV 11.6 H, Neut % (Auto) 74.9, Lymph % (Auto) 18.6, [place] % (Auto) 5.2, Eos % (Auto) 0.1, Baso % (Auto) 0.1, Neut # (Auto) 11.7 H, Lymph # (Auto) 2.9, [place] # (Auto) 0.8, Eos # (Auto) 0.0, Baso # (Auto) 0.0, PT 13.3 H, INR 1.22 H, Sodium 133 L, Potassium 7.2 H* 08/13/25 04:50: Potassium Cancelled, Chloride 95 L, Carbon Dioxide 36 H, Anion Gap 9.2, BUN 104 H*, Creatinine 2.30 H, Estimated Creat Clear 19, Estimated GFR 21 L, Est GFR ( Amer) 25 L, Glucose 112 H, Calcium 8.5, Phosphorus 4.8 H, Magnesium 2.4 H, Iron 258 H, TIBC 307, Iron Saturation 84.71030 H, Ferritin 25.9 D, Total Bilirubin 0.2, AST 53 H, ALT 28, Alkaline Phosphatase 93, Troponin I < 0.01, NT-Pro-B Natriuret Pep 1310 H, Total Protein 4.9 L, Albumin 2.9 L, Globulin 2.0, Albumin/Globulin Ratio 1.5, Lipase 43, Vitamin B12 934 H, Folate > 20.00 08/13/25 04:54: Urine Color Yellow, Urine Appearance Clear, Urine pH 5.5, Ur Specific [place] 1.020, Urine Protein Negative, Urine Glucose (UA) Negative, Urine Ketones Negative, Urine Blood Negative, Urine Nitrate Negative, Urine Bilirubin Negative, Urine Urobilinogen 0.2, Ur Leukocyte Esterase Negative 08/13/25 04:55: VBG pH 7.33, VBG pCO2 64.7 H, VBG pO2 68.8 H, VBG HCO3 33.6 H, VBG Total CO2 35.6 H, VBG O2 Saturation 91.1 H, VBG Base Excess 7.7 H, VBG Lactic Acid 3.1 H, SARS-CoV-2 (PCR) Not detected, Influenza A Untype (PCR) Not detected, Influenza Type B (PCR) Not detected 08/13/25 05:10: Hgb 4.1 L*, Hct 14.1 L* 08/13/25 05:15: Blood Type O Positive, Blood Type Confirm O Positive, Antibody Screen Negative, Crossmatch (AHG) See Detail 08/13/25 06:57: POC Glucose 227 H 08/13/25 08:30: Stool Occult Blood Positive A 08/13/25 09:30: Hgb 8.0 L D, Hct 24.8 L, Retic Count (auto) 6.4 H, Potassium 6.4 H*, Troponin I < 0.01 08/13/25 12:30: Hgb 7.5 L, Hct 23.4 L 08/13/25 14:32: Lactate 0.7 08/13/25 14:37: POC Glucose 130 H I & O for Last 24 hours: Intake & Output 08/10/25 08/11/25 08/12/25 08/13/25 22:59 23:59 23:59 23:59 Intake Total 1544.50 / 1544.50 Output Total 750 / 750 Balance 794.50 / 794.50 Weight 105.188 kg Constitutional Constitutional: mild distress and chronically ill appearing *Routine HEENT Exam Head: Present normocephalic Eye: Present EOMI and PERRL ENT: Present mucous membranes moist *Routine Neck Exam Neck: Present supple; Absent lymphadenopathy *Routine Respiratory Exam Respiratory: Present CTA bilaterally *Routine Cardiovascular Exam Cardiovascular: Present RRR *Routine Abdominal Exam Abdominal: Present soft and normoactive bowel sounds; Absent tenderness *Routine Extremities Exam Extremities: Present edema; Absent cyanosis or clubbing *Routine Skin Exam Skin: Present warm; Absent rash *Routine Neurological Exam Neurological: Present alert Assessment and Plan *Assessment and plan (1) Hemorrhagic shock: Status: Acute Category: Medical Code(s): R57.8 - Other shock Plan Ambar Fernandez is a 75-year-old female who presented with altered mentation and was admitted for acute metabolic encephalopathy with UTI, hemorrhagic shock, acute on chronic anemia from suspected upper GI bleed. #Hemorrhagic shock #Acute on chronic microcytic anemia #Suspected upper GI bleed #Hyperkalemia #Epigastric/RUQ abdominal #Suspected PUD hemorrhage ? Patient presented with altered mentation, weakness, elevated heart rate, hypoxia at nursing facility. ? Initial hemoglobin 4.1, MCV 100, with discordantly high BUN 104, potassium 7.1, with right upper quadrant/epigastric abdominal pain. FOBT positive for blood. ? Hemoglobin improved from 4.1-8.0, then dropped to 7.5 after 2 units PRBC transfusion. Ordered 2 additional units in the setting of shock. ? Continues to require Levophed 8mcg. Patient became more hypoxic after 2 units of blood, and 500 cc bolus x 2 for shock. Given IV Lasix 20 mg, follow-up response. Requiring nonrebreather 15 L at this time. ? GI consulted, initially family did not want anything invasive per patient's previous wishes. However, POA son present want to pursue EGD at this time. GI would like cardiology preoperative assessment evaluation. ? Continue IV Protonix 40 mg twice daily. ? Consider additional dose of IV Lasix after blood transfusion. ? Potassium improved to 6.4, given IV Lasix 20 mg. Follow-up repeat BMP. ? Hold off on IV fluids at this time due to volume overload. #Acute metabolic encephalopathy #Hypercapnic respiratory failure, compensated #UTI ? Patient is is encephalopathic at this time, does wake to deep sternal rub but unable to adequately answer questions. Does groan, withdraw from pain. ? UA grossly abnormal, urine culture pending. ? VBG pCO2 elevated at 64.7, pH 7.33. Seems compensated, will repeat VBG this afternoon. ? Escalated antibiotics to IV vancomycin, cefepime 2 g every 24 hours due to shock. ? DuoNebs every 6 hours. ? Follow-up blood, urine culture. #Acute on chronic hypoxic respiratory failure #HFpEF exacerbation ? Patient became more hypoxic after 2 units of blood, and 500 cc bolus x 2 for shock. Given IV Lasix 20 mg, follow-up response. Requiring nonrebreather 15 L at this time. ? Reevaluate restarting diuresis in the morning. #Hypertension ? Hold home torsemide, nadolol. #Type 2 diabetes #Peripheral neuropathy ? Hemoglobin A1c 5.7% in May 2025. Follow-up repeat A1c. Hold off on ACHS glucose checks at this time. ? Hold home gabapentin due to encephalopathy. #COPD ? Continue home Symbicort, Spiriva. #GERD ? Continue home PPI as above. #Anxiety/depression ? Continue home venlafaxine. Hold home trazodone due to encephalopathy. DNR DVT prophylaxis: IPC's. Home medications: Holding due to encephalopathy.
--- NOTE | 2025-08-13 16:03 | EXP.PHA.CONS ---
Pharmacy Consult Date: 08/13/25 Time: 16:03 Referring provider: DR EASTON Reason for Consult:: VANCOMYCIN DOSING CONSULT Allergies Allergy/AdvReac Type Severity Reaction Status Date / Time acetaminophen (From Tylox) Allergy Verified 06/23/25 11:27 metformin Allergy Verified 06/23/25 11:27 Penicillins Allergy Verified 06/23/25 11:27 sitagliptin (From Januvia) Allergy Verified 06/23/25 11:27 oxycodone (From PERCOCET) AdvReac Unknown Verified 06/23/25 11:27 Home Medications ?Medication ?Instructions ?Recorded ?Confirmed ?Type montelukast 10 mg tablet 10 mg PO HS 11/01/22 08/13/25 History oxybutynin chloride 10 mg 10 mg PO DAILY 11/01/22 08/13/25 History tablet,extended release 24 hr pantoprazole 40 mg tablet,delayed 40 mg PO DAILY 11/01/22 08/13/25 History release roflumilast 500 mcg tablet 500 mcg PO DAILY 11/01/22 08/13/25 History gabapentin 300 mg capsule 300 mg PO TID #90 caps 05/27/25 08/13/25 Rx clopidogrel 75 mg tablet (Plavix) 75 mg PO DAILY 05/28/25 08/13/25 History ferrous sulfate 325 mg (65 mg 325 mg PO BID 05/28/25 08/13/25 History iron) tablet pramipexole 0.125 mg tablet 0.125 mg PO HS 05/28/25 08/13/25 History trazodone 50 mg tablet 50 mg PO HS 05/28/25 08/13/25 History budesonide-formoterol HFA 160 2 puff inhalation BID #10.2 grams 06/10/25 08/13/25 Rx mcg-4.5 mcg/actuation aerosol inhaler (Symbicort) cholecalciferol (vitamin D3) 25 25 mcg PO DAILY #30 caps 06/10/25 08/13/25 Rx mcg (1,000 unit) capsule acetaminophen 500 mg tablet 500 mg PO Q8HP PRN Mild Pain 06/23/25 08/13/25 History (Scale Score 1-4) insulin NPH-regular 70-30 U-100 24 unit SQ DAILY 06/23/25 08/13/25 History insulin 100 unit/mL subcutaneous pen (Novolin 70-30 FlexPen U-100 Insulin) insulin glargine 100 unit/mL (3 22 unit SQ BID 06/23/25 08/13/25 History mL) subcutaneous pen (Lantus Solostar U-100 Insulin) nadolol 20 mg tablet 20 mg PO BID 06/23/25 08/13/25 History nitroglycerin 0.4 mg sublingual 0.4 mg sublingual Q5-15M PRN Chest 06/23/25 08/13/25 History tablet Pain sennosides 8.6 mg tablet (senna) 8.6 mg PO DAILY 06/23/25 08/13/25 History torsemide 100 mg tablet 50 mg PO DAILY 06/23/25 08/13/25 History umeclidinium 62.5 mcg/actuation 1 inh inhalation DAILY 06/23/25 08/13/25 History blister powder for inhalation (Incruse Ellipta) venlafaxine 150 mg 150 mg PO DAILY 06/23/25 08/13/25 History capsule,extended release 24 hr azithromycin 250 mg tablet 250 mg PO DAILY 08/13/25 08/13/25 History (Zithromax Z-Terry) cetirizine 10 mg tablet (Zyrtec) 10 mg PO DAILY 08/13/25 08/13/25 History insulin aspart U-100 100 unit/mL 0 unit SQ DIRECTED 08/13/25 08/13/25 History (3 mL) subcutaneous pen (Novolog FlexPen U-100 Insulin aspart) levofloxacin 750 mg tablet 750 mg PO DAILY 08/13/25 08/13/25 History ondansetron HCl 4 mg tablet 4 mg PO Q6HP PRN Nausea And 08/13/25 08/13/25 History Vomiting polyethylene glycol 3350 17 gram 17 g PO DAILY 08/13/25 08/13/25 History oral powder packet potassium chloride 20 mEq 20 meq PO DAILY 08/13/25 08/13/25 History tablet,extended release(part/cryst) New Prescriptions to Start Prescriptions: Height: 1.68 m Weight: 105.188 kg Laboratory Results:: Laboratory Results - last 24 hr 08/13/25 04:50: WBC 15.6 H, RBC 1.42 L*, Hgb 4.1 L*, Hct 14.2 L*, MCV 100.0 H, MCH 28.9, MCHC 28.9 L, RDW 17.2, Plt Count 172, MPV 11.6 H, Neut % (Auto) 74.9, Lymph % (Auto) 18.6, Ada % (Auto) 5.2, Eos % (Auto) 0.1, Baso % (Auto) 0.1, Neut # (Auto) 11.7 H, Lymph # (Auto) 2.9, Ada # (Auto) 0.8, Eos # (Auto) 0.0, Baso # (Auto) 0.0, PT 13.3 H, INR 1.22 H, Sodium 133 L, Potassium 7.2 H* 08/13/25 04:50: Potassium Cancelled, Chloride 95 L, Carbon Dioxide 36 H, Anion Gap 9.2, BUN 104 H*, Creatinine 2.30 H, Estimated Creat Clear 19, Estimated GFR 21 L, Est GFR ( Amer) 25 L, Glucose 112 H, Calcium 8.5, Phosphorus 4.8 H, Magnesium 2.4 H, Iron 258 H, TIBC 307, Iron Saturation 84.11339 H, Ferritin 25.9 D, Total Bilirubin 0.2, AST 53 H, ALT 28, Alkaline Phosphatase 93, Troponin I < 0.01, NT-Pro-B Natriuret Pep 1310 H, Total Protein 4.9 L, Albumin 2.9 L, Globulin 2.0, Albumin/Globulin Ratio 1.5, Lipase 43, Vitamin B12 934 H, Folate > 20.00 08/13/25 04:54: Urine Color Yellow, Urine Appearance Clear, Urine pH 5.5, Ur Specific Locke 1.020, Urine Protein Negative, Urine Glucose (UA) Negative, Urine Ketones Negative, Urine Blood Negative, Urine Nitrate Negative, Urine Bilirubin Negative, Urine Urobilinogen 0.2, Ur Leukocyte Esterase Negative 08/13/25 04:55: VBG pH 7.33, VBG pCO2 64.7 H, VBG pO2 68.8 H, VBG HCO3 33.6 H, VBG Total CO2 35.6 H, VBG O2 Saturation 91.1 H, VBG Base Excess 7.7 H, VBG Lactic Acid 3.1 H, SARS-CoV-2 (PCR) Not detected, Influenza A Untype (PCR) Not detected, Influenza Type B (PCR) Not detected 08/13/25 05:10: Hgb 4.1 L*, Hct 14.1 L* 08/13/25 05:15: Blood Type O Positive, Blood Type Confirm O Positive, Antibody Screen Negative, Crossmatch (AHG) See Detail 08/13/25 06:57: POC Glucose 227 H 08/13/25 08:30: Stool Occult Blood Positive A 08/13/25 09:30: Hgb 8.0 L D, Hct 24.8 L, Retic Count (auto) 6.4 H, Potassium 6.4 H*, Troponin I < 0.01 08/13/25 12:30: Hgb 7.5 L, Hct 23.4 L 08/13/25 14:32: Lactate 0.7 08/13/25 14:37: POC Glucose 130 H Medical History: Medical History (Updated 08/13/25 @ 13:31 by VANI Peres) COPD (chronic obstructive pulmonary disease) Tobacco abuse Chronic kidney disease Pneumonia Major depression, recurrent Blastomycosis Peripheral neuropathy Overactive bladder GERD (gastroesophageal reflux disease) Vitamin D deficiency Congestive heart failure Portal hypertension Impaired mobility Acute exacerbation of chronic obstructive airways disease COPD exacerbation UTI (urinary tract infection) Body mass index (BMI) greater than 40 Muscle weakness (generalized) Anemia, unspecified Other low back pain Sleep apnea History of COVID-19 Chronic cough Asthma History of diverticulitis History of cataract Allergies Hyperlipidemia Hypertension Edema Skin cancer Breast cancer Metatarsalgia of both feet Onychomycosis of toenail Type 2 diabetes mellitus, with long-term current use of insulin Diabetic foot Diastolic dysfunction CAD (coronary artery disease) History of noncompliance with medical treatment Intermittent palpitations Assessment and Plan Assessment and plan all Dx Assessment and Plan for all problems:: Pharmacokinetic dosing service Objective: Age: 75 yo Serum creatinine: 2.3 mg/dL Height: 66.1 Inches Weight (kg): 105.188 Diagnosis: PNEUMONIA, ICU Assessment: IBW (kg): 59.53 Dosing wt(kg): 105.188 Estimated Creatinine clearance (ml/min): 19.6 CRCL method: Cockcroft and Gault using ibw(default). Drug selected: Vancomycin Vd (liters): 73.6 (factor used: 0.7 L/kg) Jose (hr-1): 0.021 Half life (hrs): 33.01 CLvanco=?? 1.546 L/hr Recommended dose: 1750 mg Interval: 48 hrs Infusion time (hrs): 2.0 Predicted peak (mcg/mL): 36.7 Predicted trough (mcg/mL): 13.97 Total body weight is being used for vancomycin dosing. Recommendations: Give Vancomycin 1750 mg q 48 hrs with an expected Cpeak of 36.7 mcg/ml and an expected Ctrough of 13.97 mcg/ml AUC 0-24 /KOMAL Data: KOMAL 0.5 mcg/mL:?? AUC/KOMAL:? 1132.0 KOMAL 1.0 mcg/mL:?? AUC/KOMAL:? 566.0 --------- KOMAL 1.5 mcg/mL:?? AUC/KOMAL:? 377.3 KOMAL 2.0 mcg/mL:?? AUC/KOMAL:? 283.0 Thank you for the consult
[2025-08-13 16:14] LABS: C-Reactive Protein 22.0 mg/L (0-4)
--- NOTE | 2025-08-13 16:24 | PC.NURSE ---
Lab called to notify that the units of blood are ready
[2025-08-13 16:27] LABS: Procalcitonin 0.675 ng/mL (0.0-2.0)
--- NOTE | 2025-08-13 16:45 | PC.NURSE ---
PT WITH LIMITED IV ACCESS, MD AWARE. PROTONIX AND LEVO NOT COMPATIBLE. CALLED [facility] FOR [facility], WILL BE IN TO ASSIST WHEN POSSIBLE
[2025-08-13 17:23] LABS: Lactate Venous 1.0 mmol/L (0.4-2.0); VBG HCO3 30.2 mmol/L (23-30); VBG PCO2 49.2 mmol/L (35-51); VBG PH 7.41 mmol/L (7.31-7.41); VBG PO2 236.9 mmol/L (28-40)
[2025-08-13 17:45] LABS: Hemoglobin 6.9 g/dL (12.2-16.2)
--- NOTE | 2025-08-13 17:45 | PC.NURSE ---
1745 CRITICAL H&H 6.06/28.8. PT NAME AND R/V. REPORTED TO DR. EASTON
[2025-08-13 17:46] LABS: Hematocrit 20.8 % (37.0-47.0)
--- NOTE | 2025-08-13 17:48 | PC.NURSE ---
DR EASTON NOTIFIED OF MULTIPLE UNSUCCESSFUL ATTEMPTS AT [facility] PER RN X 3. STATES HE WILL REACH OUT TO DR PEREZ, SURGEON FLOOR REPRESENTATIVE FOR ACCESS
--- NOTE | 2025-08-13 17:53 | PC.NURSE ---
RESPIRATORY NOTIFIED TO [facility] PER DR. EASTON
[2025-08-13 17:55] LABS: Chloride 99 mmol/L (98-107); Sodium 136 mmol/L (136-145)
[2025-08-13 17:58] LABS: Anion Gap 8.0 mEq/L (5-15); Calcium 8.7 mg/dl (8.4-10.2); Carbon Dioxide 35 mmol/L (22.0-30.0); Creatinine Clearance Estimated 36 mL/min (50-200); Creatinine,Serum 2.20 mg/dl (0.52-1.04); Estimated Glomerular Filt Rate 22 ml/min (>60); GFR (African American) 26 ML/MIN (>60); Glucose 105 mg/dl (74-100)
--- NOTE | 2025-08-13 18:03 | PC.NURSE ---
1803 PT PLACED ON 6L/NC PER DR EASTON
--- NOTE | 2025-08-13 18:05 | PC.NURSE ---
DR EASTON AT BEDSIDE TO DISCUSS CENTRAL LINE WITH FAMILY
[2025-08-13 18:10] LABS: Potassium 6.0 mmoL/L (3.5-5.1)
[2025-08-13 18:12] LABS: Blood Urea Nitrogen 101 mg/dl (7-17)
--- NOTE | 2025-08-13 18:15 | PC.NURSE ---
DR PEREZ AT BEDSIDE TO PLACE CENTRAL LINE
[2025-08-13] MEDS: IPRATROPIUM/ALBUTEROL 3 ML NEB IH ×2 (18:20→23:02)
[2025-08-13 18:27] LABS: Uric Acid 11.0 mg/dl (2.5-6.2)
--- NOTE | 2025-08-13 18:52 | XR_ITS ---
PROCEDURE INFORMATION: Exam: XR Chest Exam date and time: 08/13/2025 6:58 PM Age: 75 years old Clinical indication: Device placement; Picc; Additional info: Confirm placement of central line TECHNIQUE: Imaging protocol: Radiologic exam of the chest. Views: 1 view. COMPARISON: CR XR CHEST PORTABLE 08/13/2025 1:37 PM FINDINGS: Tubes, catheters and devices: Left IJ central venous catheter in good position with the tip in the superior vena cava. Lungs: Unremarkable. No consolidation. Pleural spaces: Unremarkable. No pleural effusion. No pneumothorax. Heart/Mediastinum: Unremarkable. No cardiomegaly. Bones/joints: Unremarkable. IMPRESSION: Left IJ central line in good position. No acute abnormality.
--- NOTE | 2025-08-13 19:03 | PC.NURSE ---
XR AT BEDSIDE
--- NOTE | 2025-08-13 19:12 | PC.NURSE ---
REPORT GIVEN TO DEANNA MELVIN
--- NOTE | 2025-08-13 19:17 | EXP.OP.NOTE ---
Date of procedure: 08/13/25 Pre-op Diagnosis:: Inadequate venous access Post-op Diagnosis:: Same Procedure performed:: Left internal jugular triple-lumen catheter placement Surgeon:: Jose Pabon MD Anesthesia: local Estimated blood loss (mL): 5 Operative findings:: All 3 lumens flushed without difficulty Anchored at 16 cm Operative note:: After informed consent was obtained the patient was maintained in a supine position. Her left superior chest and neck were prepped and draped in a sterile fashion. She was then transferred to a modified Trendelenburg position. After infiltration with local anesthetic her left internal jugular vein was accessed without difficulty. The guidewire was placed in position. Utilizing a modified Seldinger technique the triple-lumen catheter was placed in position and anchored at 16 cm. Dressings were applied. All 3 ports flushed without difficulty. Chest x-ray pending. Condition: critical Disposition: no change Specimens:: None Complications:: No immediate. Chest x-ray pending.
[2025-08-13] MEDS: PANTOPRAZOLE 40MG VIAL 40 MG IV (20:52)
[2025-08-13 20:53] LABS: POC Glucose,Bedside 112 gm/dL (70-110)
[2025-08-13] MEDS: CEFEPIME HCL 2 GM in 0.9 % SODIUM CHLORIDE 100 ML IV (21:18)
[2025-08-13] MEDS: VANCOMYCIN/WATER FOR INJ (PEG) 1.75 GM/350 ML PIGGYBACK IV (23:15)
[2025-08-14] VITALS (68 sets, daily range): BP systolic 82–134; BP diastolic 32–76; PULSE 57–75; RESP 12–25; TEMP 36.7–37.2; O2SAT 87–100; BMI 37.4
[2025-08-14 00:32] LABS: POC Glucose,Bedside 117 gm/dL (70-110)
[2025-08-14 00:43] LABS: Hematocrit 27.0 % (37.0-47.0)
[2025-08-14 00:47] LABS: Hemoglobin 8.8 g/dL (12.2-16.2)
[2025-08-14] MEDS: VANCOMYCIN CONSULT REQUEST 1 EACH NOTAPPLIC (01:21)
[2025-08-14 05:40] LABS: Albumin Level 2.9 g/dl (3.5-5.0); Chloride 102 mmol/L (98-107); Potassium 5.6 mmoL/L (3.5-5.1); Sodium 138 mmol/L (136-145)
[2025-08-14 05:43] LABS: Alanine Aminotransferase 39 U/L (12-78); Alkaline Phosphatase 83 U/L (38-126); Anion Gap 7.6 mEq/L (5-15); Aspartate Amino Transferase 72 U/L (14-36); Bilirubin,Total 0.6 mg/dl (0.2-1.3); Calcium 8.4 mg/dl (8.4-10.2); Carbon Dioxide 34 mmol/L (22.0-30.0); Creatinine Clearance Estimated 40 mL/min (50-200); Creatinine,Serum 2.00 mg/dl (0.52-1.04); Estimated Glomerular Filt Rate 24 ml/min (>60); GFR (African American) 29 ML/MIN (>60); Glucose 104 mg/dl (74-100); Total Protein,Serum 4.9 g/dl (6.3-8.2)
[2025-08-14 05:53] LABS: Hematocrit 27.0 % (37.0-47.0); Hemoglobin 8.6 g/dL (12.2-16.2); Immature Granulocytes % 0.9 %; Mean Corpuscular HGB Conc 31.9 g/dL (31.8-35.4); Mean Corpuscular Hemoglobin 29.5 pg (27.0-31.2); Mean Corpuscular Volume 92.5 fl (81-99); Nucleated Red Blood Cells % 0.4 %; Platelet Count 121 K/mm3 (142-424); Red Blood Count 2.92 M/mm3 (4.20-5.40); Red Cell Distribution Width-SD 52.6 fL; White Blood Count 19.1 K/mm3 (4.8-10.8)
[2025-08-14 05:58] LABS: Albumin/Globulin Ratio 1.5 (1.1-1.8); Blood Urea Nitrogen 89 mg/dl (7-17); Globulin 2.0 g/dL (1.3-3.2)
[2025-08-14] MEDS: IPRATROPIUM/ALBUTEROL 3 ML NEB IH ×3 (06:08→23:06)
[2025-08-14 07:08] LABS: Total Cells Counted 100
[2025-08-14 07:10] LABS: Anisocytosis 1+; Basophilic Stippling 1+; Microcytosis 1+; Polychromasia 1+
[2025-08-14 08:06] LABS: Hemoglobin A1C 5.1 % (4.0-6.0)
[2025-08-14] MEDS: PANTOPRAZOLE 40MG VIAL 40 MG IV ×2 (08:41→21:53)
[2025-08-14] MEDS: CEFEPIME HCL 2 GM in 0.9 % SODIUM CHLORIDE 100 ML IV ×2 (08:44→21:55)
--- NOTE | 2025-08-14 10:21 | HMH.PTEV ---
Physical Therapy Evaluation Rehab PT IP Evaluation Start: 08/13/25 07:25 Freq: ONCE Status: Active Protocol: Document 08/14/25 10:13 NERY (Rec: 08/14/25 10:21 NERY [id number]) Subjective/History History History Per H&P: This is a 75-year-old female who is known to our service line and has a past medical history significant for COPD, obesity, chronic kidney disease, GERD, vitamin D deficiency, congestive heart failure with diastolic dysfunction, hypertension, anemia, GERD, vitamin D deficiency, asthma, diverticulitis, skin cancer, breast cancer, diabetes, and coronary artery disease who presents with a chief complaint of altered mental status. Due to patient's altered mental status, her review of systems is limited ; as a result, the majority of information obtained from the ER provider, chart review, and son at the bedside. According to ER provider, patient was transition to [facility] due to altered mental status, low blood pressure, oxygen saturation in the 70s, and high heart rate. Presenting to [facility], patient's blood pressure was in the 200s systolic and then a downward trended to 70 systolic. Patient's hemoglobin was 4 and her potassium was 7. Due to these findings, patient is being admitted for further management. During my evaluation of the patient, she could provide no meaningful data. She was lethargic and intermittently alert. I spoke with son at the bedside who voiced his mom did not want any aggressive treatment. He states that she did have a potassium of 9 in the past. Review of patient's home medication shows she is currently prescribed an ADELE inhibitor and supplemental potassium. Patient is very restless and appears to be ashen nance. ER provider states that staff at the nursing facility reports patient had some GI bleeding (is not clear on if the stool was dark or bright red blood). Additional pertinent values include blood pressure of 78/33, white blood cell count of 15. 6, red blood cell count of 1.42, hemoglobin of 4.1, hematocrit 14.2, INR 1.22, sodium 133, potassium 7.2, 95, carbon oxide of 36, BUN of 104, creatinine of 2.30, GFR of 21, blood glucose of 112, phosphorus of 4.8, magnesium of 2.4, AST of 53, BNP of 1310,Hypokalemia patient total protein of 4.9, and albumin of 2.9. CT scan of the head was negative for any acute intracranial process. Plain films of the chest revealed bilateral perihilar opacity and worsening left base opacity concerning for pneumonia with small left pleural effusion. Subjective Subjective Pt's family in room to assist with providing hx. Pt lives at a longterm and uses an electric w/c. Pt normally able to transfer from EOB>w/c without assistance. Pt's family reports a recent functional decline. [facility] How much help from another person do you currently need... Turning from your A lot back to your side while in a flat bed without using bedrails? Moving from lying on A lot back to sitting on the side of a flat bed without using bedrails? Moving to and from a A lot bed to a chair ( including a wheelchair)? Standing up from a A lot chair using your arms? (e.g., wheelchair, bedside chair) Walking in hospital Total room? Climbing 3-5 steps Total with a railing? Mobility Score 10 Mobility Level [facility] Mobility 4 Move to chair/commode Mobility Calculator Rehab PT IP Eval Objective Appearance Patient Behavior Appropriate Difficulty following mild instructions Speech Pattern Mumbled Ambulation Patient Able to No Ambulate Balance Ability to Arise Unable Sitting Balance Leans or slides in chair Standing Balance Unsteady Dynamic Sitting Fair Balance Ability Dynamic Standing Poor Balance Ability Transfers Bed Transfer Ability Maximum x 2 (75% assist) Rehab PT IP prob,goals,plan Problems Date of Evaluation: 08/14/25 PT IP Problems Bed Mobility,Transfers,Gait,Balance,Self care,Safety Rehab Potential Rehab Potential Good Plan PT Intervention Plan Bed Mobility,Transfers,Gait,Balance,Self care,Safety, Therapeutic Exercise Other Intervention 1-2 times Plan PT Plan Frequency Daily Duration LOS Discharge Plan PT Discharge Plan Initial physical therapy evaluation performed. Patient presents below baseline at this time in functional mobility, transfers, gait, and strength. Pt would benefit from skilled PT while at [facility] to prevent further functional decline and maximize safety with mobility. Pt recommending pt receive skilled rehab at her longterm. Eval Complexity Eval Charge Codes 52700 - Moderate Complexity PHYSICIAN CERTIFICATION: I certify the specified therapy services for Ambar Sanchez Fernandez are required, authorized, and reviewed every 30 days.
--- NOTE | 2025-08-14 10:25 | PC.NURSE ---
Patient is moaning and has facial grimacing at this time. Patient GCS of 10. Patient unable to verbalize where pain is located. Patient has facial grimacing when assess BLE at this time. notified. New orders received. Continuation of care plan.
--- NOTE | 2025-08-14 10:27 | HMH.OTEV ---
OT Evaluation Rehab OT IP Evaluation Start: 08/13/25 07:25 Freq: ONCE Status: Active Protocol: Document 08/14/25 10:20 DELONTE (Rec: 08/14/25 10:26 DELONTE [id number]) Rehab OT IP Assessment Subjective History This is a 75-year-old female who is known to our service line and has a past medical history significant for COPD, obesity, chronic kidney disease, GERD, vitamin D deficiency, congestive heart failure with diastolic dysfunction, hypertension, anemia, GERD, vitamin D deficiency, asthma, diverticulitis, skin cancer, breast cancer, diabetes, and coronary artery disease who presents with a chief complaint of altered mental status. Due to patient's altered mental status, her review of systems is limited; as a result, the majority of information obtained from the ER provider, chart review, and son at the bedside. According to ER provider, patient was transition to [facility] due to altered mental status, low blood pressure, oxygen saturation in the 70s, and high heart rate. Presenting to [facility], patient's blood pressure was in the 200s systolic and then a downward trended to 70 systolic. Patient's hemoglobin was 4 and her potassium was 7. Due to these findings, patient is being admitted for further management. During my evaluation of the patient, she could provide no meaningful data. She was lethargic and intermittently alert. I spoke with son at the bedside who voiced his mom did not want any aggressive treatment. He states that she did have a potassium of 9 in the past. Review of patient's home medication shows she is currently prescribed an ADELE inhibitor and supplemental potassium. Patient is very restless and appears to be ashen nance. ER provider states that staff at the nursing facility reports patient had some GI bleeding (is not clear on if the stool was dark or bright red blood). Additional pertinent values include blood pressure of 78/33, white blood cell count of 15. 6, red blood cell count of 1.42, hemoglobin of 4.1, hematocrit 14.2, INR 1.22, sodium 133, potassium 7.2, 95, carbon oxide of 36, BUN of 104, creatinine of 2.30, GFR of 21, blood glucose of 112, phosphorus of 4.8, magnesium of 2.4, AST of 53, BNP of 1310,Hypokalemia patient total protein of 4.9, and albumin of 2.9. CT scan of the head was negative for any acute intracranial process. Plain films of the chest revealed bilateral perihilar opacity and worsening left base opacity concerning for pneumonia with small left pleural effusion. 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 1 assist for ADLs and fx'l mobility tasks. Uses power wheelchair to maneuver throughout facility. Subjective Yeah. Instructed Patient on proper hand and foot placement to complete bed mobility from supine->sit @ EOB requiring Max A X2. Patient sat up @ EOB ~6-7 mins with SBA. Patient demonstrated ability to use B UE to position self in upright position. Assisted patient from EOB-> supine with Max A X2. Left Patient sitting upright in bed with needs met at end of session. Objective Patient Orientation Name Right Upper WFL Extremity Gross ROM Left Upper Extremity WFL Gross ROM Bed Mobility bed mobility - supine/sit Assist Level Maximum x 2 (75% assist) Rehab OT IP prob,goals,plan Problems Date of Evaluation: 08/14/25 OT IP Problems Bed Mobility,Transfers,Balance,Self care,Safety Rehab Potential Rehab Potential Good Equipment Needs Assistive Devices Rolling / Wheeled Walker Plan OT intervention Plan Bed Mobility,Transfers,Balance,Self care,Safety, Therapeutic Exercise OT Plan Frequency Daily Duration LOS Discharge Goals Sit to Stand Chair Maximum x 1 (75% assist) Transfer Ability Chair Transfer Maximum x 1 (75% assist) Ability Chair Transfer Sit to/from Ambulatory Technique Discharge Plan OT Discharge Plan Recommend patient return back to [facility] after medical d/c from hospital. Patient to continue skilled OT IP services while here at [facility] in order to assess for safety awareness for ADLs and fx'l mobility tasks. Eval Complexity Eval Charge Codes 53529 - Low Complexity PHYSICIAN CERTIFICATION: I certify the specified therapy services for Ambar Fernandez are required, authorized, and reviewed every 30 days.
--- NOTE | 2025-08-14 10:29 | P.PN_ITS ---
Subjective Subjective Date: 08/14/25 Time: 10:29 Principal diagnosis: AMS, severe anemia, hyperkalemia Interval history: 75-year-old white female in bed in the ICU in no acute distress. Seems mildly more alert today. Is on nasal cannula oxygen. Sister is in the room. Left IJ central line was placed yesterday with good placement on chest x-ray. Hemoglobin transfused up to 8.6 with platelet count of 121,000. Potassium has decreased to 5.6 with improvement in BUN down to 89 and creatinine down to 2.0 Telemetry shows sinus rhythm Blood pressure 114/44 mmHg, still on Levophed but decreasing dose. Exam Data for Last 24 hours Vital signs and Labs for Last 24 Hours: Temp Pulse Resp BP Pulse Ox O2 Del Method O2 Flow Rate 98.0 F 66 24 109/46 L 96 Nasal Cannula 2 08/14/25 08:00 08/14/25 09:31 08/14/25 09:31 08/14/25 09:31 08/14/25 09:31 08/14/25 09:57 08/14/25 09:57 FiO2 40 08/13/25 23:10 Laboratory Results - last 24 hr 08/13/25 04:50: Potassium Cancelled, Iron 258 H, TIBC 307, Iron Saturation 84 .27663 H, Ferritin 25.9 D, C-Reactive Protein 22.0 H, Vitamin B12 934 H, Folate > 20.00, Procalcitonin 0.675 08/13/25 05:15: Blood Type O Positive, Antibody Screen Negative, Crossmatch (AHG) See Detail 08/13/25 09:30: Potassium 6.4 H*, Troponin I < 0.01 08/13/25 12:30: Hgb 7.5 L, Hct 23.4 L 08/13/25 14:32: Lactate 0.7, Uric Acid 11.0 H 08/13/25 14:37: POC Glucose 130 H 08/13/25 17:15: Hgb 6.9 L, Hct 20.8 L*, VBG pH 7.41, VBG pCO2 49.2, VBG pO2 236.9 H, VBG HCO3 30.2 H, VBG Total CO2 31.7 H, VBG O2 Saturation 99.4 H, VBG Base Excess 5.5 H, VBG Lactic Acid 1.0, Sodium 136, Potassium 6.0 H, Chloride 99, Carbon Dioxide 35 H, Anion Gap 8.0, BUN 101 H*, Creatinine 2.20 H, Estimated Creat Clear 36, Estimated GFR 22 L, Est GFR ( Amer) 26 L, Glucose 105 H, Calcium 8.7 08/13/25 20:46: POC Glucose 112 H 08/14/25 00:25: POC Glucose 117 H 08/14/25 00:31: Hgb 8.8 L D, Hct 27.0 L 08/14/25 04:37: WBC 19.1 H, RBC 2.92 L D, Hgb 8.6 L, Hct 27.0 L, MCV 92.5, MCH 29.5, MCHC 31.9, RDW 17.3, Plt Count 121 L D, MPV 10.9 H, Neut % (Auto) 74.3, Lymph % (Auto) 15.0, [place] % (Auto) 8.9, Eos % (Auto) 0.7, Baso % (Auto) 0.2, Neut # (Auto) 14.2 H, Lymph # (Auto) 2.9, [place] # (Auto) 1.7 H, Eos # (Auto) 0.1, Baso # (Auto) 0.0, Total Counted 100, Neutrophils % (Manual) 75, Band Neutrophils % 4.0, Lymphocytes % (Manual) 14, Monocytes % (Manual) 7, Platelet Estimate Slight decrease, Polychromasia 1+, Basophilic Stippling 1+, Anisocytosis 1+, Microcytosis 1+, Sodium 138, Potassium 5.6 H, Chloride 102, Carbon Dioxide 34 H, Anion Gap 7.6, BUN 89 H, Creatinine 2.00 H, Estimated Creat Clear 40, Estimated GFR 24 L, Est GFR ( Amer) 29 L, Glucose 104 H, Hemoglobin A1c 5.1, Calcium 8.4, Total Bilirubin 0.6, AST 72 H D, ALT 39 D, Alkaline Phosphatase 83, Lactate Dehydrogenase 295 L, Total Protein 4.9 L, Albumin 2.9 L, Globulin 2.0, Albumin/Globulin Ratio 1.5 I & O for Last 24 hours: Intake & Output 08/11/25 08/12/25 08/13/25 08/14/25 11:59 11:59 11:59 11:59 Intake Total 1410 / 1410 2136.067 / 2136.067 Output Total 300 / 300 2325 / 2325 Balance 1110 / 1110 -188.933 / -188.933 Weight 231 lb 14.4 oz 233 lb Microbiology Reports for the Last 24 Hours: Microbiology 08/13/25 04:40 Blood Blood Culture - Preliminary NO GROWTH AFTER 24 HOURS 08/13/25 04:40 Blood Blood Culture - Preliminary NO GROWTH AFTER 24 HOURS Constitutional Comments: Awakens to verbal command but does not answer questions. *Routine Respiratory Exam Respiratory: Present CTA bilaterally *Routine Cardiovascular Exam Cardiovascular: Present RRR; Absent murmur, gallop or rubs Progress Note: A&P Assessment and plan (1) Hemorrhagic shock: Status: Acute Assessment and Plan Assessment and Plan for All Diagnoses:: 1. Severe anemia (hemoglobin 4.1 transfused up to 7.5) with occult positive stool/Hemorrhagic shock -EGD per Dr. Patel in near future -transfused up to 8.6 -IV PPI -Discontinue Plavix (unknown why she is on it per family...no MO/stents/CVA) -on levophed at decreasing dose 2. Hyperkalemia, 7.2 on admission currently 5.6 -improving with hydration and lokelma -Discontinue ADELE inhibitor and potassium supplementation -recurrent issue per family with prior admission in 2022 with K of 9. 3. AMS, multifactorial -anemia -hypotension for which she is currently on Levophed, improving -acute on chronic CKD -possible pneumonia for which she is on ceftriaxone and azithromycin -head CT negative for acute process 4. Normal coronaries in 2016 -Troponins normal here -Echo shows preserved LVEF 5. COPD with BUDDY -History of refusing CPAP -On Roflumilast 6. Acute on chronic CKD -Baseline creatinine 1.1 with current creatinine of 2.0 and BUN of 89 -Should improve with IV fluids and transfusions 7. HFpEF -Echo shows preserved LVEF -On torsemide at home 8. Diabetes mellitus -Hemoglobin A1c 5.7 on 06/02/2025 9. History of carotid artery stenosis -Mild in 2019 Cardiac status is stable with normal LVEF and normal troponins. Weaning off levophed as BP tolerates. Nothing further to add.
[2025-08-14] MEDS: MORPHINE 2MG/ML SYRINGE 2 MG IV ×2 (12:12→18:36)
[2025-08-14 12:45] LABS: POC Glucose,Bedside 110 gm/dL (70-110)
--- NOTE | 2025-08-14 14:07 | PC.NURSE ---
states called to the Surgery Department and ask if is planning to do a EGD today. Primary RN called Surgery department at this time. Awaiting response back.
--- NOTE | 2025-08-14 14:07 | PC.NURSE ---
states called to the Surgery Department and ask if is planning to do a scope today. Primary RN called Surgery department at this time. Awaiting response back.
--- NOTE | 2025-08-14 14:15 | PC.NURSE ---
Surgery Department states states he will contact . Primary RN notified . Continuation of care plan.
--- NOTE | 2025-08-14 14:46 | PC.NURSE ---
states would like to administer a suppository and see if patient has a bowel movement and its appearance. Continuation of care plan.
[2025-08-14] MEDS: GLYCERIN ADULT 3GM SUPP 3 GM RC (14:58)
[2025-08-14 15:14] LABS: POC Glucose,Bedside 119 gm/dL (70-110)
[2025-08-14 16:06] LABS: POC Glucose,Bedside 113 gm/dL (70-110)
--- NOTE | 2025-08-14 17:27 | CT_ITS ---
PROCEDURE INFORMATION: Exam: CTA Abdomen and Pelvis With Contrast Exam date and time: 08/14/2025 8:29 PM Age: 75 years old Clinical indication: Other: Suspected gi bleed; Additional info: Suspected gi bleed, sepsis workup TECHNIQUE: Imaging protocol: Computed tomographic angiography of the abdomen and pelvis with contrast. Exam focused on the arteries. 3D rendering (Not supervised by radiologist): MIP and/or 3D reconstructed images were created by the technologist. Total images: 2355 Radiation optimization: All CT scans at this facility use at least one of these dose optimization techniques: automated exposure control; mA and/or kV adjustment per patient size (includes targeted exams where dose is matched to clinical indication); or iterative reconstruction. Contrast material: ISOVUE; Contrast volume: 80 ml; Contrast route: INTRAVENOUS (IV); COMPARISON: CT - ABDPELWO CT abdomen pelvis wo con 02/04/2019 8:32 PM FINDINGS: Lungs: Bibasilar dependent and subsegmental atelectasis. Pleural spaces: Trace bilateral pleural effusions. Heart: Mild cardiomegaly. Aorta: Moderate atherosclerotic abdominal aorta without aneurysm or dissection. Celiac and mesenteric arteries: Significant high-grade atherosclerotic stenosis proximal celiac artery. Moderate atherosclerotic stenosis proximal superior mesenteric artery. Renal arteries: No occlusion or significant stenosis. Right iliac arteries: No occlusion or significant stenosis. Left iliac arteries: No occlusion or significant stenosis. Veins: Dilated portal veins. No portal vein thrombus. Numerous pelvic phleboliths. Liver: Advanced liver cirrhosis. No discrete liver mass. Gallbladder and biliary ducts: Unremarkable. No calcified stones. No ductal dilation. Pancreas: Unremarkable. No mass. No ductal dilation. Spleen: Splenomegaly at 16.7 cm. No splenic mass or infarct. Adrenal glands: Unremarkable. No mass. Kidneys and ureters: Multiple bilateral renal cysts, including a 3 cm upper pole right renal cyst with thin peripheral wall calcification. 5.5 cm exophytic lower pole left renal cyst. Stomach and bowel: Gastric wall thickening from incomplete distension versus gastritis. No ileus or bowel obstruction. Unremarkable small bowel and terminal ileum. Moderate diverticulosis of the descending and sigmoid colon. Mild wall thickening of the sigmoid colon with adjacent fat stranding implying focal acute colitis/diverticulitis. No complicating features. Unremarkable rectum. No active intraluminal contrast excretion to provide source for GI hemorrhage. Appendix: No evidence for appendicitis. Intraperitoneal space: Trace ascites. No free intraperitoneal air. Lymph nodes: Unremarkable. No enlarged lymph nodes. Urinary bladder: Decker catheter within the bladder. Bladder wall thickening. Air in the bladder lumen from catheter placement. Reproductive: Status post hysterectomy. Large 14 cm cystic right adnexal mass with internal septation, most in keeping with ovarian neoplasm. Bones/joints: Osteopenia. Limited bone detail from attenuation artifact. Moderate to severe degenerative disc disease L3-L4. Mild degenerative changes bilateral hips. Mild lumbar levocurvature. Soft tissues: Diastasis of the rectus fascia. Small midline abdominal wall hernia containing fat and fluid. IMPRESSION: 1. Acute mild focal colitis/diverticulitis of the sigmoid colon. No complicating features. A colonic malignancy may have a similar presentation, therefore consider follow-up nonemergent colonoscopy. 2. 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 3. Advanced liver cirrhosis with portal hypertension. 4. Splenomegaly. 5. Trace ascites 6. Bilateral renal cysts. 7. 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 8. Study does not show active GI hemorrhage
--- NOTE | 2025-08-14 17:27 | CT_ITS ---
PROCEDURE INFORMATION: Exam: CT Chest Without Contrast; Diagnostic Exam date and time: 08/14/2025 8:02 PM Age: 75 years old Clinical indication: Other: Sepsis workup TECHNIQUE: Imaging protocol: Diagnostic computed tomography of the chest without contrast. Total images: 409 Radiation optimization: All CT scans at this facility use at least one of these dose optimization techniques: automated exposure control; mA and/or kV adjustment per patient size (includes targeted exams where dose is matched to clinical indication); or iterative reconstruction. COMPARISON: CR XR CHEST PORTABLE 08/13/2025 6:58 PM FINDINGS: Tubes, catheters and devices: Left IJ central venous catheter with tip at the junction of the brachiocephalic vein and superior vena cava. Thyroid: Heterogeneous nonenlarged thyroid gland without discrete mass. Subcentimeter left thyroid nodule or cyst requiring no strict follow-up. Lungs: Trachea and main bronchi are patent. Bibasilar subsegmental and dependent atelectasis. Atelectasis and mild patchy peribronchial infiltrate in the right upper lobe. Biapical scarring/fibrosis. Pleural spaces: Trace bilateral pleural effusions. Heart: Mild cardiomegaly. No pericardial effusion. Coronary arteries: Coronary artery calcifications. Mediastinal space: No mediastinal mass or hematoma. Lymph nodes: No mediastinal lymphadenopathy. Limited hilar assessment by lack of contrast. Vasculature: Atherosclerotic thoracic aorta without aneurysm. Liver: Cirrhotic liver. Gallbladder and biliary ducts: Status post cholecystectomy. Kidneys: Partially included multiple bilateral renal cysts including a 3 cm upper pole cyst on the right with thin peripheral wall calcification. Intraperitoneal space: Mild mesenteric edema. Trace ascites. Bones/joints: Osteopenia. Increased thoracic kyphosis. Moderate degenerative changes throughout the thoracic spine. Moderate thoracic dextrocurvature. Soft tissues: Midline upper abdominal wall hernia containing fat and fluid. IMPRESSION: 1. Mild right upper lobe atelectasis and patchy peribronchial infiltrates. 2. Bibasilar subsegmental and dependent atelectasis. 3. Trace bilateral pleural effusions. 4. Cirrhosis. 5. Trace ascites 6. Bilateral renal cysts. COMMENTS: 1. Consistent with the [employer]'s Incidental Findings Committee white paper (J Am Chris Radiol 2018): Any incidental renal lesion less than 1 cm or classified as too small to characterize, or any incidental cystic renal lesion characterized as simple-appearing, is likely benign. No follow-up imaging is recommended for these lesions per consensus recommendations based on imaging criteria. 2. Consistent with the [employer]'s Incidental Findings Committee white paper (J Am Chris Radiol 2015): In patients aged 35 years and older with an incidental thyroid nodule equal to or greater than 1.[address], MRI or extrathyroidal US, further evaluation with dedicated thyroid US is recommended for patients with normal life expectancy and without comorbidities. For smaller nodules without suspicious features, no further evaluation or follow up is recommended.
--- NOTE | 2025-08-14 17:55 | P.PN_ITS ---
Subjective *Date: 08/14/25 *Time: 17:55 Interval history: Patient still cognitively unaware. Patient's son and POA at her bedside. Patient has not had any hematochezia, melena or hematemesis. Exam Data for Last 24 hours Vital signs and Labs for Last 24 Hours: Temp Pulse Resp BP Pulse Ox O2 Del Method O2 Flow Rate 98.3 F 63 12 100/36 L 95 Nasal Cannula 2 08/14/25 16:00 08/14/25 17:00 08/14/25 17:00 08/14/25 17:02 08/14/25 17:00 08/14/25 17:00 08/14/25 17:00 FiO2 40 08/13/25 23:10 Laboratory Results - last 24 hr 08/13/25 04:50: Haptoglobin 98 08/13/25 05:15: Blood Type O Positive, Antibody Screen Negative, Crossmatch (AHG) See Detail 08/13/25 14:32: Uric Acid 11.0 H 08/13/25 17:15: Sodium 136, Potassium 6.0 H, Chloride 99, Carbon Dioxide 35 H, Anion Gap 8.0, BUN 101 H*, Creatinine 2.20 H, Estimated Creat Clear 36, Estimated GFR 22 L, Est GFR ( Amer) 26 L, Glucose 105 H, Calcium 8.7 08/13/25 20:46: POC Glucose 112 H 08/14/25 00:25: POC Glucose 117 H 08/14/25 00:31: Hgb 8.8 L D, Hct 27.0 L 08/14/25 04:37: WBC 19.1 H, RBC 2.92 L D, Hgb 8.6 L, Hct 27.0 L, MCV 92.5, MCH 29.5, MCHC 31.9, RDW 17.3, Plt Count 121 L D, MPV 10.9 H, Neut % (Auto) 74.3, Lymph % (Auto) 15.0, [place] % (Auto) 8.9, Eos % (Auto) 0.7, Baso % (Auto) 0.2, Neut # (Auto) 14.2 H, Lymph # (Auto) 2.9, [place] # (Auto) 1.7 H, Eos # (Auto) 0.1, Baso # (Auto) 0.0, Total Counted 100, Neutrophils % (Manual) 75, Band Neutrophils % 4.0, Lymphocytes % (Manual) 14, Monocytes % (Manual) 7, Platelet Estimate Slight decrease, Polychromasia 1+, Basophilic Stippling 1+, Anisocytosis 1+, Microcytosis 1+, Sodium 138, Potassium 5.6 H, Chloride 102, Carbon Dioxide 34 H, Anion Gap 7.6, BUN 89 H, Creatinine 2.00 H, Estimated Creat Clear 40, Estimated GFR 24 L, Est GFR ( Amer) 29 L, Glucose 104 H, Hemoglobin A1c 5.1, Calcium 8.4, Total Bilirubin 0.6, AST 72 H D, ALT 39 D, Alkaline Phosphatase 83, Lactate Dehydrogenase 295 L, Total Protein 4.9 L, Albumin 2.9 L, Globulin 2.0, Albumin/Globulin Ratio 1.5 08/14/25 05:56: POC Glucose 113 H 08/14/25 12:29: POC Glucose 110 08/14/25 14:59: POC Glucose 119 H I & O for Last 24 hours: Intake & Output 08/11/25 08/12/25 08/13/25 08/14/25 23:59 23:59 23:59 23:59 Intake Total 2403.75 / 2403.75 1157.453 / 1157.453 Output Total 825 / 1525 2475 / 2475 Balance 1578.75 / 878.75 -1317.547 / -1317.547 Weight 231 lb 14.4 oz 233 lb Microbiology Reports for the Last 24 Hours: Microbiology 08/13/25 04:40 Blood Blood Culture - Preliminary NO GROWTH AFTER 24 HOURS 08/13/25 04:40 Blood Blood Culture - Preliminary NO GROWTH AFTER 24 HOURS *Routine Abdominal Exam Abdominal: Present soft (Normoactive bowels) Comments: Normoactive bowel sounds, soft, benign abdomen Assessment and Plan *Assessment and plan (1) Hypotension: Status: Acute Qualifiers: Hypotension type: hypotension due to hypovolemia Qualified Code(s): E86.1 - Hypovolemia Category: Medical Code(s): I95.9 - Hypotension, unspecified (2) Occult blood positive stool: Status: Acute Category: Medical Code(s): R19.5 - Other fecal abnormalities (3) Hemorrhagic shock: Status: Acute Category: Medical Code(s): R57.8 - Other shock (4) Acute anemia: Status: Acute Category: Medical Code(s): D64.9 - Anemia, unspecified Plan 1. Acute anemia. I do feel that this is multifactorial and related to anemia of acute inflammation, renal insufficiency and also possibly some GI blood loss but there is no acute GI blood loss. In consideration of doing endoscopy, the patient was on pressors today and remains very lethargic and is at some risk for sedated procedure. I would recommend that we only consider this when she is more stable. Certainly if she was having signs of acute bleeding (melena, hematochezia or bright red blood per rectum), would consider more urgent endoscopic or colonoscopic evaluation. This is certainly not the case. I have discussed this with the POA and family were indecisive to pursue any aggressive measures. We can pursue hemolysis evaluation as well as discussed with hematology. If patient does have any signs of overt bleeding, I would then consider endoscopic/colonoscopic evaluation. I would also consider endoscopic evaluation when she is more stable from cardiovascular standpoint and she just weaned off of Levophed earlier this afternoon.
[2025-08-14 17:59] LABS: Hematocrit 27.1 % (37.0-47.0); Hemoglobin 8.5 g/dL (12.2-16.2)
--- NOTE | 2025-08-14 18:00 | PC.NURSE ---
Primary RN notified of GFR of 24 and Creatinine of 2.0. states he would still like ordered scans. Continuation of care plan.
--- NOTE | 2025-08-14 18:12 | PC.NURSE ---
states give patient 250mL of ordered LR on DEC before taking patient to radiology for ordered scan. Continuation of care plan.
[2025-08-14] MEDS: LACTATED RINGERS 1000ML 250 ML IV (18:19)
[2025-08-14] MEDS: LACTATED RINGERS 1000ML 1,000 ML 75 ML IV (18:30)
[2025-08-14 18:40] LABS: POC Glucose,Bedside 139 gm/dL (70-110)
[2025-08-14] MEDS: 0.9 % SODIUM CHLORIDE 50 ML VIAL IV (20:42)
[2025-08-14] MEDS: SODIUM CHLORIDE 0.9% 10ML SYR (RAD ONLY) 10 ML IV (20:42)
[2025-08-14] MEDS: IOPAMIDOL-370 (76%);100ML BOTTLE 80 ML IV (20:42)
--- NOTE | 2025-08-14 21:30 | EXP.PN ---
Subjective *Date: 08/14/25 *Time: 21:30 Interval history: Patient continues to be encephalopathic but improving slowly. Likely related to uremia. No plans for EGD at this time as hemoglobin stable, and patient was just weaned off Levophed this afternoon. Exam Data for Last 24 hours Vital signs and Labs for Last 24 Hours: Temp Pulse Resp BP Pulse Ox O2 Del Method O2 Flow Rate 98.3 F 67 12 100/36 L 92 L Nasal Cannula 1 08/14/25 16:00 08/14/25 18:10 08/14/25 17:00 08/14/25 17:02 08/14/25 18:10 08/14/25 18:10 08/14/25 18:10 FiO2 40 08/13/25 23:10 Laboratory Results - last 24 hr 08/13/25 04:50: Haptoglobin 98 08/13/25 05:15: Blood Type O Positive, Antibody Screen Negative, Crossmatch (AHG) See Detail 08/14/25 00:25: POC Glucose 117 H 08/14/25 00:31: Hgb 8.8 L D, Hct 27.0 L 08/14/25 04:37: WBC 19.1 H, RBC 2.92 L D, Hgb 8.6 L, Hct 27.0 L, MCV 92.5, MCH 29.5, MCHC 31.9, RDW 17.3, Plt Count 121 L D, MPV 10.9 H, Neut % (Auto) 74.3, Lymph % (Auto) 15.0, [place] % (Auto) 8.9, Eos % (Auto) 0.7, Baso % (Auto) 0.2, Neut # (Auto) 14.2 H, Lymph # (Auto) 2.9, [place] # (Auto) 1.7 H, Eos # (Auto) 0.1, Baso # (Auto) 0.0, Total Counted 100, Neutrophils % (Manual) 75, Band Neutrophils % 4.0, Lymphocytes % (Manual) 14, Monocytes % (Manual) 7, Platelet Estimate Slight decrease, Polychromasia 1+, Basophilic Stippling 1+, Anisocytosis 1+, Microcytosis 1+, Sodium 138, Potassium 5.6 H, Chloride 102, Carbon Dioxide 34 H, Anion Gap 7.6, BUN 89 H, Creatinine 2.00 H, Estimated Creat Clear 40, Estimated GFR 24 L, Est GFR ( Amer) 29 L, Glucose 104 H, Hemoglobin A1c 5.1, Calcium 8.4, Total Bilirubin 0.6, AST 72 H D, ALT 39 D, Alkaline Phosphatase 83, Lactate Dehydrogenase 295 L, Total Protein 4.9 L, Albumin 2.9 L, Globulin 2.0, Albumin/Globulin Ratio 1.5 08/14/25 05:56: POC Glucose 113 H 08/14/25 12:29: POC Glucose 110 08/14/25 14:59: POC Glucose 119 H 08/14/25 17:47: Hgb 8.5 L, Hct 27.1 L 08/14/25 18:32: POC Glucose 139 H I & O for Last 24 hours: Intake & Output 08/11/25 08/12/25 08/13/25 08/14/25 23:59 23:59 23:59 23:59 Intake Total 2403.75 / 2403.75 1207.453 / 1207.453 Output Total 825 / 1525 2675 / 2675 Balance 1578.75 / 878.75 -1467.547 / -1467.547 Weight 105.188 kg 105.687 kg Microbiology Reports for the Last 24 Hours: Microbiology 08/13/25 04:40 Blood Blood Culture - Preliminary NO GROWTH AFTER 24 HOURS 08/13/25 04:40 Blood Blood Culture - Preliminary NO GROWTH AFTER 24 HOURS Constitutional Constitutional: mild distress and chronically ill appearing Comments: Encephalopathic *Routine HEENT Exam Head: Present normocephalic Eye: Present EOMI and PERRL ENT: Present mucous membranes moist *Routine Neck Exam Neck: Present supple; Absent lymphadenopathy *Routine Respiratory Exam Respiratory: Present CTA bilaterally *Routine Cardiovascular Exam Cardiovascular: Present RRR *Routine Abdominal Exam Abdominal: Present soft and normoactive bowel sounds; Absent tenderness *Routine Extremities Exam Extremities: Present edema; Absent cyanosis or clubbing *Routine Skin Exam Skin: Present warm; Absent rash *Routine Neurological Exam Neurological: Present alert Assessment and Plan *Assessment and plan (1) Hemorrhagic shock: Status: Acute Category: Medical Code(s): R57.8 - Other shock Plan Ambar Fernandez is a 75-year-old female who presented with altered mentation and was admitted for acute metabolic encephalopathy with UTI, hemorrhagic shock, acute on chronic anemia from suspected upper GI bleed. # Hypotension #Acute on chronic microcytic anemia # Possible upper GI bleed #Hyperkalemia #Epigastric/RUQ abdominal pain, resolved # History of cirrhosis ? Patient presented with altered mentation, weakness, elevated heart rate, hypoxia at nursing facility. ? Initial hemoglobin 4.1, MCV 100, with discordantly high BUN 104, potassium 7.1, with right upper quadrant/epigastric abdominal pain. FOBT positive for blood. ? Hemoglobin improved from 4.1-8.0, then dropped to 8.5 after 4 units PRBC transfusion. Required subsequent Lasix due to pulmonary edema. Weaned off Levophed on 08/14/2025. ? Hemoglobin stabilized 8.5 today. No tachycardia, BUN and potassium improving. But there was an upper GI bleed, it seems to be resolved at this time. No hematochezia, melena. ? Patient does have a history of cirrhosis, could have been variceal bleed. GI evaluated, given that patient was just weaned off Levophed and encephalopathy which poses her at her higher risk for sedated procedure. Will hold off on EGD for now. ? Continue IV Protonix 40 mg twice daily. ? Consider additional dose of IV Lasix after blood transfusion. ? Potassium improved to 5.5. ? Follow-up CT chest, CT abdomen/pelvis for sepsis workup. #Acute metabolic encephalopathy #Hypercapnic respiratory failure, compensated #UTI ? Patient is is encephalopathic at this time, does wake to deep sternal rub but unable to adequately answer questions. Does groan, withdraw from pain. ? CXR concerning for bibasilar opacities. VBG showing compensated hypercapnia. ? Uremia likely also contributing to encephalopathy, improved from 10 4-89 today. Started LR at 75 mL/h. ? Will de-escalate IV antibiotics to Zosyn for now. ? DuoNebs every 6 hours. ? Follow-up blood, urine culture. #Hypertension ? Hold home torsemide, nadolol. #Type 2 diabetes #Peripheral neuropathy ? Hemoglobin A1c 5.7% in May 2025. Follow-up repeat A1c. Hold off on ACHS glucose checks at this time. ? Hold home gabapentin due to encephalopathy. #COPD ? Continue home Symbicort, Spiriva. #GERD ? Continue home PPI as above. #Anxiety/depression ? Continue home venlafaxine. Hold home trazodone due to encephalopathy. DNR DVT prophylaxis: IPC's. Home medications: Holding due to encephalopathy.
[2025-08-14] MEDS: SODIUM CHLORIDE 0.9% 10ML VIAL 10 ML IV (21:53)
[2025-08-15] VITALS (30 sets, daily range): BP systolic 106–142; BP diastolic 39–56; PULSE 58–82; RESP 14–22; TEMP 36–37; O2SAT 90–100; BMI 37.6
[2025-08-15 00:21] LABS: POC Glucose,Bedside 115 gm/dL (70-110)
[2025-08-15] MEDS: MORPHINE 2MG/ML SYRINGE 2 MG IV ×3 (03:27→20:25)
--- NOTE | 2025-08-15 03:48 | PC.NURSE ---
Pt woke up out of deep sleep at approximately 0330 and became very aggitated stating that she wanted to get up and was very adamant about getting out of the bed. Pt removed nasal cannula, causing o2 to drop in the low 80s, pulling covers off and trying to swing her legs to side of bed so she could get up. Navjot hearn was notified of aggitation and vbg was ordered.
[2025-08-15 03:51] LABS: Lactate Venous 1.5 mmol/L (0.4-2.0); VBG HCO3 31.6 mmol/L (23-30); VBG PH 7.36 mmol/L (7.31-7.41); VBG PO2 62.3 mmol/L (28-40)
[2025-08-15 03:52] LABS: VBG PCO2 56.7 mmol/L (35-51)
--- NOTE | 2025-08-15 04:07 | PC.NURSE ---
RESP CARE NOTE: I spoke with Dr Lamar at this time regarding order from hospitalist for BiPAP after VBG was resulted. RT Sylvia and I did not feel this would be beneficial for this patient at this time. VBG results did not warrant BiPAP and Pt was already agitated with venturi mask on and would not leave it alone. Dr Lamar stated no BiPAP or CPAP at this time and to maintain her sats above 90%, if sats were to drop then we would reassess the need for a different mode of oxygenation. Pt is currently more relaxed and sats are maintaining. Dr Lamar requested a chest xray this am and a pulmonary consult order.
--- NOTE | 2025-08-15 04:09 | PC.NURSE ---
Respiratory notified that per omar hearn to place pt on bipap for remainder of night
[2025-08-15] MEDS: FUROSEMIDE 20 MG/2 ML VIAL IV (04:10)
[2025-08-15] MEDS: diazePAM 10MG/2ML SYRINGE 2.5 MG IV (04:11)
[2025-08-15 05:34] LABS: Hematocrit 28.1 % (37.0-47.0); Hemoglobin 8.6 g/dL (12.2-16.2); Immature Granulocytes % 0.8 %; Mean Corpuscular HGB Conc 30.6 g/dL (31.8-35.4); Mean Corpuscular Hemoglobin 29.4 pg (27.0-31.2); Mean Corpuscular Volume 95.9 fl (81-99); Nucleated Red Blood Cells % 0 %; Platelet Count 106 K/mm3 (142-424); Red Blood Count 2.93 M/mm3 (4.20-5.40); Red Cell Distribution Width-SD 56.0 fL; White Blood Count 10.3 K/mm3 (4.8-10.8)
[2025-08-15 05:36] LABS: Albumin Level 2.9 g/dl (3.5-5.0); Chloride 106 mmol/L (98-107)
[2025-08-15 05:37] LABS: Potassium 5.0 mmoL/L (3.5-5.1); Sodium 143 mmol/L (136-145)
[2025-08-15 05:39] LABS: Alanine Aminotransferase 41 U/L (12-78); Anion Gap 9.0 mEq/L (5-15); Aspartate Amino Transferase 70 U/L (14-36); Blood Urea Nitrogen 72 mg/dl (7-17); Carbon Dioxide 33 mmol/L (22.0-30.0); Creatinine Clearance Estimated 53 mL/min (50-200); Creatinine,Serum 1.50 mg/dl (0.52-1.04); Estimated Glomerular Filt Rate 34 ml/min (>60); GFR (African American) 41 ML/MIN (>60)
[2025-08-15 05:40] LABS: Albumin/Globulin Ratio 1.3 (1.1-1.8); Alkaline Phosphatase 88 U/L (38-126); Bilirubin,Total 0.7 mg/dl (0.2-1.3); Calcium 8.3 mg/dl (8.4-10.2); Globulin 2.2 g/dL (1.3-3.2); Glucose 113 mg/dl (74-100); Total Protein,Serum 5.1 g/dl (6.3-8.2)
--- NOTE | 2025-08-15 06:00 | XR_ITS ---
PROCEDURE INFORMATION: Exam: XR Chest Exam date and time: 08/15/2025 5:33 AM Age: 75 years old Clinical indication: Other: Pleural effusions; Additional info: Bilateral pleural effusions TECHNIQUE: Imaging protocol: Radiologic exam of the chest. Views: 1 view. COMPARISON: CT CHEST WO CON 08/14/2025 8:02 PM FINDINGS: Tubes, catheters and devices: Central venous catheter in the superior vena cava. Lungs: Chronic interstitial changes. Patchy right lower lobe airspace opacity may represent infiltrate, new since prior study of 08/13/2025. Pleural spaces: Unremarkable. No pleural effusion. No pneumothorax. Heart/Mediastinum: Unremarkable. No cardiomegaly. Bones/joints: Unremarkable. IMPRESSION: 1. Central venous catheter in the superior vena cava. 2. Patchy right lower lobe airspace opacity may represent infiltrate, new since prior study of 08/13/2025. .
[2025-08-15] MEDS: IPRATROPIUM/ALBUTEROL 3 ML NEB IH ×4 (06:07→23:46)
[2025-08-15 07:08] LABS: POC Glucose,Bedside 128 gm/dL (70-110)
--- NOTE | 2025-08-15 09:08 | CT_ITS ---
FINAL REPORT TECHNIQUE: Axial CT images were performed through the head. Coronal reformatted images were submitted. This study was performed with techniques to keep radiation doses as low as reasonably achievable (ALARA). Individualized dose reduction techniques using automated exposure control or adjustment of mA and/or kV according to the patient's size were employed. CLINICAL HISTORY: AMS COMPARISON: 08/12/2025 FINDINGS: The head is asymmetrically positioned in the gantry. The ventricles are normal in size. There is no evidence of hemorrhage. There is no mass or edema identified. There is no abnormal extra-axial fluid seen. The paranasal sinuses are well aerated. IMPRESSION: No acute intracranial process. Reviewed, Interpreted and Dictated by Jean Chandra MD Transcribed by Vijaya Villanueva Authenticated and [facility]
--- NOTE | 2025-08-15 09:23 | HMH.PHAAMS2 ---
- Antimicrobial Stewardship Review culture & sensitivity review Stewardship interventions: reviewed - no change Comments: sputum culture pending, cefepime and vancomycin empirically
[2025-08-15] MEDS: CEFEPIME HCL 2 GM in 0.9 % SODIUM CHLORIDE 100 ML IV ×2 (10:03→20:25)
[2025-08-15] MEDS: PANTOPRAZOLE 40MG VIAL 40 MG IV ×2 (10:03→20:25)
--- NOTE | 2025-08-15 11:09 | EXP.PULM.CON ---
History of Present Illness History of present illness: Ms. Paredes is a 75-year-old female with reported history of COPD CHF hypertension anemia presented to ER with complaints of worsening mentation-physical) manage per acute on chronic hypoxic and hypercarbic respiratory failure, community-acquired pneumonia, hyperkalemia, and heart failure exacerbation found to have increasing oxygen requirements pulmonary was called for further evaluation and management. [facility] Disclaimer: The information contained in this section may have been updated after the patient was seen, as this information can be updated by other users. Medical History (Updated 08/15/25 @ 14:15 by Xiomara Lamar MD) Acute and chronic respiratory failure with hypoxia COPD (chronic obstructive pulmonary disease) Tobacco abuse Chronic kidney disease Pneumonia Major depression, recurrent Blastomycosis Peripheral neuropathy Overactive bladder GERD (gastroesophageal reflux disease) Vitamin D deficiency Congestive heart failure Portal hypertension Impaired mobility Acute exacerbation of chronic obstructive airways disease COPD exacerbation UTI (urinary tract infection) Body mass index (BMI) greater than 40 Muscle weakness (generalized) Anemia, unspecified Other low back pain Sleep apnea History of COVID-19 Chronic cough Asthma History of diverticulitis History of cataract Allergies Hyperlipidemia Hypertension Edema Skin cancer Breast cancer Metatarsalgia of both feet Onychomycosis of toenail Type 2 diabetes mellitus, with long-term current use of insulin Diabetic foot Diastolic dysfunction CAD (coronary artery disease) History of noncompliance with medical treatment Intermittent palpitations Surgical History H/O bilateral mastectomy (~02/2012) H/O: hysterectomy History of dental surgery History of surgical removal of lesion History of carpal tunnel release History of cholecystectomy History of bladder surgery Family History Mother Hypertension Cancer Sister Cancer Father Cancer Son Cancer Social History Smoking Status: Current every day smoker tobacco type: cigarettes packs per day: 2 second hand exposure: Yes alcohol intake: never substance use type: denies use current occupational status: disabled Travel in the last 8 weeks?: None household members: none housing: [facility] number of children: 3 current occupational exposures/hazards: No caffeine: Yes special adam needs: No agree to transfusion: No additional social history: 1 son Review of Systems Review of Systems Review of systems:: unable to obtain Review of systems (narrative): Patient is confused lethargic not responsive appropriately to verbal questions Pulmonology Exam Inpatient Vital signs and Labs for Last 24 Hours: Temp Pulse Resp BP Pulse Ox O2 Del Method O2 Flow Rate 97.4 F L 68 20 108/49 L 96 Nasal Cannula 2 08/15/25 08:23 08/15/25 09:01 08/15/25 09:01 08/15/25 09:01 08/15/25 09:01 08/15/25 10:00 08/15/25 10:00 FiO2 50 08/15/25 03:40 Laboratory Results - last 24 hr 08/13/25 04:50: Haptoglobin 98 08/13/25 14:32: Haptoglobin 97 08/14/25 05:56: POC Glucose 113 H 08/14/25 12:29: POC Glucose 110 08/14/25 14:59: POC Glucose 119 H 08/14/25 17:47: Hgb 8.5 L, Hct 27.1 L 08/14/25 18:32: POC Glucose 139 H 08/15/25 00:14: POC Glucose 115 H 08/15/25 03:45: VBG pH 7.36, VBG pCO2 56.7 H, VBG pO2 62.3 H, VBG HCO3 31.6 H, VBG Total CO2 33.3 H, VBG O2 Saturation 91.2 H, VBG Base Excess 6.2 H, VBG Lactic Acid 1.5 08/15/25 04:32: WBC 10.3 D, RBC 2.93 L, Hgb 8.6 L, Hct 28.1 L, MCV 95.9, MCH 29.4, MCHC 30.6 L, RDW 18.2 H, Plt Count 106 L, MPV 10.6 H, Neut % (Auto) 73.8, Lymph % (Auto) 15.3, Weakley % (Auto) 8.9, Eos % (Auto) 1.0, Baso % (Auto) 0.2, Neut # (Auto) 7.6, Lymph # (Auto) 1.6, Weakley # (Auto) 0.9, Eos # (Auto) 0.1, Baso # (Auto) 0.0, Sodium 143, Potassium 5.0, Chloride 106, Carbon Dioxide 33 H, Anion Gap 9.0, BUN 72 H, Creatinine 1.50 H D, Estimated Creat Clear 53, Estimated GFR 34 L, Est GFR ( Amer) 41 L D, Glucose 113 H, Calcium 8.3 L, Total Bilirubin 0.7, AST 70 H, ALT 41, Alkaline Phosphatase 88, Total Protein 5.1 L, Albumin 2.9 L, Globulin 2.2, Albumin/Globulin Ratio 1.3 08/15/25 07:00: POC Glucose 128 H I & O for Labs for Last 24 Hours: Intake & Output 08/12/25 08/13/25 08/14/25 08/15/25 23:59 23:59 23:59 23:59 Intake Total 2403.75 / 2403.75 1909.953 / 1909.953 380 / 380 Output Total 825 / 1525 3075 / 3075 1450 / 1450 Balance 1578.75 / 878.75 -1165.047 / -1165.047 -1070 / -1070 Weight 231 lb 14.4 oz 233 lb 234 lb 2.095 oz Microbiology Reports for the Last 24 Hours: Microbiology 08/13/25 06:50 Rectum CRE Surveillance Culture - Final 08/13/25 04:40 Blood Blood Culture - Preliminary NO GROWTH AFTER 48 HOURS 08/13/25 04:40 Blood Blood Culture - Preliminary NO GROWTH AFTER 48 HOURS Constitutional: Present severe distress Head: Present normocephalic and atraumatic ENT: Present normal exam, normal oropharynx and mucous membranes moist Neck: Present normal inspection and full ROM Respiratory: Present respiratory distress, rhonchi, diminished air movement and able to speak in complete sentences; Absent wheezes Cardiac: Present S1/S2, Tachycardia and radial pulses present GI: Present soft and distention; Absent tenderness or guarding Rectal (female): Present deferred (female): Present deferred Skin: Present intact; Absent cyanosis or jaundice Neuro: Absent alert, awake or oriented x 3 Extremities: Present normal inspection; Absent clubbing or cyanosis Psychiatric: Present unable to assess Meds Home Medications and Allergies Home Medications ?Medication ?Instructions ?Recorded ?Confirmed ?Type montelukast 10 mg tablet 10 mg PO HS 11/01/22 08/13/25 History oxybutynin chloride 10 mg 10 mg PO DAILY 11/01/22 08/13/25 History tablet,extended release 24 hr pantoprazole 40 mg tablet,delayed 40 mg PO DAILY 11/01/22 08/13/25 History release roflumilast 500 mcg tablet 500 mcg PO DAILY 11/01/22 08/13/25 History gabapentin 300 mg capsule 300 mg PO TID #90 caps 05/27/25 08/13/25 Rx clopidogrel 75 mg tablet (Plavix) 75 mg PO DAILY 05/28/25 08/13/25 History ferrous sulfate 325 mg (65 mg 325 mg PO BID 05/28/25 08/13/25 History iron) tablet pramipexole 0.125 mg tablet 0.125 mg PO HS 05/28/25 08/13/25 History trazodone 50 mg tablet 50 mg PO HS 05/28/25 08/13/25 History budesonide-formoterol HFA 160 2 puff inhalation BID #10.2 grams 06/10/25 08/13/25 Rx mcg-4.5 mcg/actuation aerosol inhaler (Symbicort) cholecalciferol (vitamin D3) 25 25 mcg PO DAILY #30 caps 06/10/25 08/13/25 Rx mcg (1,000 unit) capsule acetaminophen 500 mg tablet 500 mg PO Q8HP PRN Mild Pain 06/23/25 08/13/25 History (Scale Score 1-4) insulin NPH-regular 70-30 U-100 24 unit SQ DAILY 06/23/25 08/13/25 History insulin 100 unit/mL subcutaneous pen (Novolin 70-30 FlexPen U-100 Insulin) insulin glargine 100 unit/mL (3 22 unit SQ BID 06/23/25 08/13/25 History mL) subcutaneous pen (Lantus Solostar U-100 Insulin) nadolol 20 mg tablet 20 mg PO BID 06/23/25 08/13/25 History nitroglycerin 0.4 mg sublingual 0.4 mg sublingual Q5-15M PRN Chest 06/23/25 08/13/25 History tablet Pain sennosides 8.6 mg tablet (senna) 8.6 mg PO DAILY 06/23/25 08/13/25 History torsemide 100 mg tablet 50 mg PO DAILY 06/23/25 08/13/25 History umeclidinium 62.5 mcg/actuation 1 inh inhalation DAILY 06/23/25 08/13/25 History blister powder for inhalation (Incruse Ellipta) venlafaxine 150 mg 150 mg PO DAILY 06/23/25 08/13/25 History capsule,extended release 24 hr azithromycin 250 mg tablet 250 mg PO DAILY 08/13/25 08/13/25 History (Zithromax Z-Terry) cetirizine 10 mg tablet (Zyrtec) 10 mg PO DAILY 08/13/25 08/13/25 History insulin aspart U-100 100 unit/mL 0 unit SQ DIRECTED 08/13/25 08/13/25 History (3 mL) subcutaneous pen (Novolog FlexPen U-100 Insulin aspart) levofloxacin 750 mg tablet 750 mg PO DAILY 08/13/25 08/13/25 History ondansetron HCl 4 mg tablet 4 mg PO Q6HP PRN Nausea And 08/13/25 08/13/25 History Vomiting polyethylene glycol 3350 17 gram 17 g PO DAILY 08/13/25 08/13/25 History oral powder packet potassium chloride 20 mEq 20 meq PO DAILY 08/13/25 08/13/25 History tablet,extended release(part/cryst) New Prescriptions to Start Prescriptions: Allergies Allergy/AdvReac Type Severity Reaction Status Date / Time acetaminophen (From Tylox) Allergy Verified 06/23/25 11:27 metformin Allergy Verified 06/23/25 11:27 Penicillins Allergy Verified 06/23/25 11:27 sitagliptin (From Januvia) Allergy Verified 06/23/25 11:27 oxycodone (From PERCOCET) AdvReac Unknown Verified 06/23/25 11:27 Results Laboratory Findings 08/15/25 04:32 08/15/25 04:32 PT/INR, D-dimer PT 13.3 seconds (10.1-12.5) H 08/13/25 04:50 INR 1.22 (0.9-1.1) H 08/13/25 04:50 Abnormal lab findings: Abnormal Labs 08/13/25 08/13/25 08/13/25 04:50 04:55 05:10 WBC 15.6 H RBC 1.42 L* Hgb 4.1 L* 4.1 L* Hct 14.2 L* 14.1 L* MCV 100.0 H MCHC 28.9 L RDW Plt Count MPV 11.6 H Neut # (Auto) 11.7 H Weakley # (Auto) Retic Count (auto) PT 13.3 H INR 1.22 H VBG pCO2 64.7 H VBG pO2 68.8 H VBG HCO3 33.6 H VBG Total CO2 35.6 H VBG O2 Saturation 91.1 H VBG Base Excess 7.7 H VBG Lactic Acid 3.1 H Sodium 133 L Potassium 7.2 H* Chloride 95 L Carbon Dioxide 36 H BUN 104 H* Creatinine 2.30 H Estimated GFR 21 L Est GFR ( Amer) 25 L Glucose 112 H POC Glucose Uric Acid Calcium Phosphorus 4.8 H Magnesium 2.4 H Iron 258 H Iron Saturation 84.95525 H AST 53 H Lactate Dehydrogenase C-Reactive Protein 22.0 H NT-Pro-B Natriuret Pep 1310 H Total Protein 4.9 L Albumin 2.9 L Vitamin B12 934 H Stool Occult Blood Crossmatch ([facility]) 08/13/25 08/13/25 08/13/25 05:15 06:57 08:30 WBC RBC Hgb Hct MCV MCHC RDW Plt Count MPV Neut # (Auto) Weakley # (Auto) Retic Count (auto) PT INR VBG pCO2 VBG pO2 VBG HCO3 VBG Total CO2 VBG O2 Saturation VBG Base Excess VBG Lactic Acid Sodium Potassium Chloride Carbon Dioxide BUN Creatinine Estimated GFR Est GFR ( Amer) Glucose POC Glucose 227 H Uric Acid Calcium Phosphorus Magnesium Iron Iron Saturation AST Lactate Dehydrogenase C-Reactive Protein NT-Pro-B Natriuret Pep Total Protein Albumin Vitamin B12 Stool Occult Blood Positive A Crossmatch ([facility]) See Detail 08/13/25 08/13/25 08/13/25 09:30 12:30 14:32 WBC RBC Hgb 8.0 L D 7.5 L Hct 24.8 L 23.4 L MCV MCHC RDW Plt Count MPV Neut # (Auto) Weakley # (Auto) Retic Count (auto) 6.4 H PT INR VBG pCO2 VBG pO2 VBG HCO3 VBG Total CO2 VBG O2 Saturation VBG Base Excess VBG Lactic Acid Sodium Potassium 6.4 H* Chloride Carbon Dioxide BUN Creatinine Estimated GFR Est GFR ( Amer) Glucose POC Glucose Uric Acid 11.0 H Calcium Phosphorus Magnesium Iron Iron Saturation AST Lactate Dehydrogenase C-Reactive Protein NT-Pro-B Natriuret Pep Total Protein Albumin Vitamin B12 Stool Occult Blood Crossmatch ([facility]) 08/13/25 08/13/25 08/13/25 14:37 17:15 20:46 WBC RBC Hgb 6.9 L Hct 20.8 L* MCV MCHC RDW Plt Count MPV Neut # (Auto) Weakley # (Auto) Retic Count (auto) PT INR VBG pCO2 VBG pO2 236.9 H VBG HCO3 30.2 H VBG Total CO2 31.7 H VBG O2 Saturation 99.4 H VBG Base Excess 5.5 H VBG Lactic Acid Sodium Potassium 6.0 H Chloride Carbon Dioxide 35 H BUN 101 H* Creatinine 2.20 H Estimated GFR 22 L Est GFR ( Amer) 26 L Glucose 105 H POC Glucose 130 H 112 H Uric Acid Calcium Phosphorus Magnesium Iron Iron Saturation AST Lactate Dehydrogenase C-Reactive Protein NT-Pro-B Natriuret Pep Total Protein Albumin Vitamin B12 Stool Occult Blood Crossmatch ([facility]) 08/14/25 08/14/25 08/14/25 00:25 00:31 04:37 WBC 19.1 H RBC 2.92 L D Hgb 8.8 L D 8.6 L Hct 27.0 L 27.0 L MCV MCHC RDW Plt Count 121 L D MPV 10.9 H Neut # (Auto) 14.2 H Weakley # (Auto) 1.7 H Retic Count (auto) PT INR VBG pCO2 VBG pO2 VBG HCO3 VBG Total CO2 VBG O2 Saturation VBG Base Excess VBG Lactic Acid Sodium Potassium 5.6 H Chloride Carbon Dioxide 34 H BUN 89 H Creatinine 2.00 H Estimated GFR 24 L Est GFR ( Amer) 29 L Glucose 104 H POC Glucose 117 H Uric Acid Calcium Phosphorus Magnesium Iron Iron Saturation AST 72 H D Lactate Dehydrogenase 295 L C-Reactive Protein NT-Pro-B Natriuret Pep Total Protein 4.9 L Albumin 2.9 L Vitamin B12 Stool Occult Blood Crossmatch ([facility]) 08/14/25 08/14/25 08/14/25 05:56 14:59 17:47 WBC RBC Hgb 8.5 L Hct 27.1 L MCV MCHC RDW Plt Count MPV Neut # (Auto) Weakley # (Auto) Retic Count (auto) PT INR VBG pCO2 VBG pO2 VBG HCO3 VBG Total CO2 VBG O2 Saturation VBG Base Excess VBG Lactic Acid Sodium Potassium Chloride Carbon Dioxide BUN Creatinine Estimated GFR Est GFR ( Amer) Glucose POC Glucose 113 H 119 H Uric Acid Calcium Phosphorus Magnesium Iron Iron Saturation AST Lactate Dehydrogenase C-Reactive Protein NT-Pro-B Natriuret Pep Total Protein Albumin Vitamin B12 Stool Occult Blood Crossmatch ([facility]) 08/14/25 08/15/25 08/15/25 18:32 00:14 03:45 WBC RBC Hgb Hct MCV MCHC RDW Plt Count MPV Neut # (Auto) Weakley # (Auto) Retic Count (auto) PT INR VBG pCO2 56.7 H VBG pO2 62.3 H VBG HCO3 31.6 H VBG Total CO2 33.3 H VBG O2 Saturation 91.2 H VBG Base Excess 6.2 H VBG Lactic Acid Sodium Potassium Chloride Carbon Dioxide BUN Creatinine Estimated GFR Est GFR ( Amer) Glucose POC Glucose 139 H 115 H Uric Acid Calcium Phosphorus Magnesium Iron Iron Saturation AST Lactate Dehydrogenase C-Reactive Protein NT-Pro-B Natriuret Pep Total Protein Albumin Vitamin B12 Stool Occult Blood Crossmatch ([facility]) 08/15/25 08/15/25 04:32 07:00 WBC RBC 2.93 L Hgb 8.6 L Hct 28.1 L MCV MCHC 30.6 L RDW 18.2 H Plt Count 106 L MPV 10.6 H Neut # (Auto) Weakley # (Auto) Retic Count (auto) PT INR VBG pCO2 VBG pO2 VBG HCO3 VBG Total CO2 VBG O2 Saturation VBG Base Excess VBG Lactic Acid Sodium Potassium Chloride Carbon Dioxide 33 H BUN 72 H Creatinine 1.50 H D Estimated GFR 34 L Est GFR ( Amer) 41 L D Glucose 113 H POC Glucose 128 H Uric Acid Calcium 8.3 L Phosphorus Magnesium Iron Iron Saturation AST 70 H Lactate Dehydrogenase C-Reactive Protein NT-Pro-B Natriuret Pep Total Protein 5.1 L Albumin 2.9 L Vitamin B12 Stool Occult Blood Crossmatch ([facility]) Assessment and Plan *Assessment and plan (1) Pneumonia: Status: Acute Qualifiers: Laterality: bilateral Lung location: lower lobe of lung Pneumonia type: due to unspecified organism Qualified Code(s): J18.9 - Pneumonia, unspecified organism Category: Medical Code(s): J18.9 - Pneumonia, unspecified organism (2) Acute and chronic respiratory failure with hypoxia: Status: Acute Category: Medical Code(s): J96.21 - Acute and chronic respiratory failure with hypoxia Plan Ms. Paredes is a 75-year-old female with reported history of COPD CHF hypertension anemia presented to ER with complaints of worsening mentation-physical) manage per acute on chronic hypoxic and hypercarbic respiratory failure, community-acquired pneumonia, hyperkalemia, and heart failure exacerbation found to have increasing oxygen requirements pulmonary was called for further evaluation and management. CT chest upon admission very minimal patchy airspace disease. Prominent findings include bilateral pleural effusions and adjacent atelectasis. No other dense consolidative changes noted. AFebrile. Neutrophilic predominant leukocytosis, improved. Blood cultures no growth 48 hours. Sputum cultures pending. Chest x-ray from this morning showed new right lower lobe airspace disease. Currently receiving cefepime. Plan: Aspiration precautions Continue cefepime pending sputum culture results and l MRSA pCR Continue oxygen supplementation to maintain O2 saturation above 90%. Currently on 2 L, which is for chronic oxygen supplementation. DuoNebs every 6 hours manage Pulmicort every 12 scheduled. Repeat venous blood gas from this afternoon did not show any evidence of hypercarbic respiratory failure. No need for noninvasive ventilatory therapy at this point of time Will continue to follow. # Thank you for involving pulmonary in this patient's care. Will continue to follow.
[2025-08-15 12:14] LABS: POC Glucose,Bedside 123 gm/dL (70-110)
--- NOTE | 2025-08-15 13:30 | PC.NURSE ---
Report called to DEANNA Jung.
--- NOTE | 2025-08-15 13:40 | PC.NURSE ---
Patient transferred to Medical Surgical room 208 via bed at this time by Medical surgical staff.
[2025-08-15 13:56] LABS: Adenovirus,PCR Not Detected (NotDetected); Chlamydophila Pneumoniae, PCR Not Detected (NotDetected); Coronavirus 19, PCR Not Detected (NotDetected); Coronovirus HKU1,PCR Not Detected (NotDetected); Influenza A, PCR Not Detected (NotDetected); Influenza AH1, 2009 Not Detected (NotDetected); Influenza AH1, PCR Not Detected (NotDetected); Influenza AH3,PCR Not Detected (NotDetected); Influenza B, PCR Not Detected (NotDetected); Mycoplasma Pneumoniae, PCR Not Detected (NotDetected); Parainfluenza 1, PCR Not Detected (NotDetected); Parainfluenza 2, PCR Not Detected (NotDetected); Parainfluenza 3, PCR Not Detected (NotDetected); Parainfluenza 4, PCR Not Detected (NotDetected)
[2025-08-15 14:02] LABS: ABG HCO3 29.5 mmhg (22.0-26.0); ABG PCO2 49.0 mmhg (35.0-45.0); ABG PH 7.40 mmol/L (7.35-7.45); ABG PO2 61.0 mmhg (80-100); ABG TCO2 31.0 mmhg (23-27)
[2025-08-15 14:04] LABS: Source L RADIAL
[2025-08-15 14:27] LABS: Ammonia 11 umol/L (9-30)
[2025-08-15] MEDS: ONDANSETRON 4MG/2ML VIAL 4 MG IV (14:36)
[2025-08-15 16:54] LABS: POC Glucose,Bedside 139 gm/dL (70-110)
[2025-08-15] MEDS: BUDESONIDE 0.5MG/2ML NEB 0.5 MG IH (17:19)
[2025-08-15] MEDS: LACTATED RINGERS 1000ML 1,000 ML 50 ML IV (18:02)
[2025-08-15] MEDS: SODIUM CHLORIDE 0.9% 10ML VIAL 10 ML IV (20:25)
--- NOTE | 2025-08-15 21:48 | EXP.PN ---
Subjective *Date: 08/25/25 *Time: 19:45 Interval history: Patient continues to be encephalopathic, arousable but confused and somnolent. Hemoglobin stable however. No signs of overt GI bleed. Extensively discussed with family today, they want to pursue comfort care given minimal improvement in that they expressed that patient would not want any of this. Exam Data for Last 24 hours Vital signs and Labs for Last 24 Hours: Temp Pulse Resp BP Pulse Ox O2 Del Method O2 Flow Rate 97.9 F 76 14 129/56 L 90 L Nasal Cannula 2 08/15/25 20:18 08/15/25 20:18 08/15/25 20:18 08/15/25 20:18 08/15/25 20:18 08/15/25 20:18 08/15/25 20:18 FiO2 50 08/15/25 03:40 Laboratory Results - last 24 hr 08/13/25 14:32: Haptoglobin 97, Zinc 57 08/15/25 00:14: POC Glucose 115 H 08/15/25 03:45: VBG pH 7.36, VBG pCO2 56.7 H, VBG pO2 62.3 H, VBG HCO3 31.6 H, VBG Total CO2 33.3 H, VBG O2 Saturation 91.2 H, VBG Base Excess 6.2 H, VBG Lactic Acid 1.5 08/15/25 04:32: WBC 10.3 D, RBC 2.93 L, Hgb 8.6 L, Hct 28.1 L, MCV 95.9, MCH 29.4, MCHC 30.6 L, RDW 18.2 H, Plt Count 106 L, MPV 10.6 H, Neut % (Auto) 73.8, Lymph % (Auto) 15.3, Duchesne % (Auto) 8.9, Eos % (Auto) 1.0, Baso % (Auto) 0.2, Neut # (Auto) 7.6, Lymph # (Auto) 1.6, Duchesne # (Auto) 0.9, Eos # (Auto) 0.1, Baso # (Auto) 0.0, Sodium 143, Potassium 5.0, Chloride 106, Carbon Dioxide 33 H, Anion Gap 9.0, BUN 72 H, Creatinine 1.50 H D, Estimated Creat Clear 53, Estimated GFR 34 L, Est GFR ( Amer) 41 L D, Glucose 113 H, Calcium 8.3 L, Total Bilirubin 0.7, AST 70 H, ALT 41, Alkaline Phosphatase 88, Total Protein 5.1 L, Albumin 2.9 L, Globulin 2.2, Albumin/Globulin Ratio 1.3 08/15/25 07:00: POC Glucose 128 H 08/15/25 12:05: POC Glucose 123 H 08/15/25 13:28: Ammonia 11 08/15/25 13:50: Chlamy pneumoniae PCR Not detected, Adenovirus (PCR) Not detected, B. pertussis DNA (PCR) Not detected, Coronavirus OC43 (PCR) Not detected, Coronavirus HKU1 (PCR) Not detected, Coronavirus 229E (PCR) Not detected, SARS-CoV-2 (PCR) Not detected, Coronavirus NL63 (PCR) Not detected, Human Metapneumovir PCR Not detected, Influenza A (H1) PCR Not detected, Influ A (H1N1/09) PCR Not detected, Influenza A (H3) PCR Not detected, Influenza Type A (PCR) Not detected, Influenza Type B (PCR) Not detected, M. pneumoniae (PCR) Not detected, Parainfluenza 1 (PCR) Not detected, Parainfluenza 2 (PCR) Not detected, Parainfluenza 3 (PCR) Not detected, Parainfluenza 4 (PCR) Not detected, RSV (PCR) Not detected, Entero/Rhino (PCR) Not detected 08/15/25 14:00: Specimen Source L radial, O2 % 28%, ABG pH 7.40, ABG pCO2 49.0 H, ABG pO2 61.0 L, ABG HCO3 29.5 H, ABG Total CO2 31.0 H, ABG O2 Saturation 92, ABG Base Excess 4.6 H, Shad Test Acceptable 08/15/25 16:35: POC Glucose 139 H I & O for Last 24 hours: Intake & Output 08/12/25 08/13/25 08/14/25 08/15/25 23:59 23:59 23:59 23:59 Intake Total 2403.75 / 2403.75 1909.953 / 1909.953 480 / 480 Output Total 825 / 1525 3075 / 3075 2575 / 2575 Balance 1578.75 / 878.75 -1165.047 / -1165.047 -2094 / -2094 Weight 105.188 kg 105.687 kg 106.2 kg Microbiology Reports for the Last 24 Hours: Microbiology 08/13/25 06:50 Rectum CRE Surveillance Culture - Final 08/13/25 04:40 Blood Blood Culture - Preliminary NO GROWTH AFTER 48 HOURS 08/13/25 04:40 Blood Blood Culture - Preliminary NO GROWTH AFTER 48 HOURS Constitutional Constitutional: no acute distress and chronically ill appearing Comments: Encephalopathic, significantly improving *Routine HEENT Exam Head: Present normocephalic Eye: Present EOMI and PERRL ENT: Present mucous membranes moist *Routine Neck Exam Neck: Present supple; Absent lymphadenopathy *Routine Respiratory Exam Respiratory: Present CTA bilaterally *Routine Cardiovascular Exam Cardiovascular: Present RRR *Routine Abdominal Exam Abdominal: Present soft and normoactive bowel sounds; Absent tenderness *Routine Extremities Exam Extremities: Present edema; Absent cyanosis or clubbing *Routine Skin Exam Skin: Present warm; Absent rash *Routine Neurological Exam Neurological: Present alert Assessment and Plan *Assessment and plan (1) Hemorrhagic shock: Status: Acute Category: Medical Code(s): R57.8 - Other shock Plan Ambar Fernandez is a 75-year-old female who presented with altered mentation and was admitted for acute metabolic encephalopathy with UTI, hemorrhagic shock, acute on chronic anemia from suspected upper GI bleed. # Hypotension #Acute on chronic microcytic anemia #Possible upper GI bleed #Hyperkalemia #Epigastric/RUQ abdominal pain, resolved # History of cirrhosis ? Patient presented with altered mentation, weakness, elevated heart rate, hypoxia at nursing facility. ? Initial hemoglobin 4.1, MCV 100, with discordantly high BUN 104, potassium 7.1, with right upper quadrant/epigastric abdominal pain. FOBT positive for blood. ? Hemoglobin stabilized around 8.5 after a total of 6 units PRBC transfusion. Required subsequent Lasix due to pulmonary edema. Weaned off Levophed on 08/14/2025. ? Hemoglobin stabilized 8.5 today. No tachycardia, BUN and potassium improving. But there was an upper GI bleed, it seems to be resolved at this time. No hematochezia, melena. ? Patient does have a history of cirrhosis, could have been variceal bleed. GI evaluated, given that patient was just weaned off Levophed and encephalopathy which poses her at her higher risk for sedated procedure. Will hold off on EGD for now, especially as family has decided to pursue hospice care. ? Continue IV Protonix 40 mg twice daily. #Acute metabolic encephalopathy #Hypercapnic respiratory failure, compensated #UTI ? Patient is is encephalopathic at this time, does wake to deep sternal rub but unable to adequately answer questions. Does groan, withdraw from pain. ? CXR concerning for bibasilar opacities. VBG showing compensated hypercapnia. ? Uremia likely also contributing to encephalopathy, improved from 10 4-89 today. Started LR at 75 mL/h. ? Continue IV antibiotics to Zosyn for now. ? DuoNebs every 6 hours. ? Follow-up blood, urine culture. 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 CTA abdomen/pelvis on 08/14/2025 revealed large 14 cm cystic right adnexal mass most consistent with ovarian neoplasm. ? Given this finding, and the fact the patient has expressed that she would not want any aggressive measures including biopsy son who is POA at bedside made the decision to pursue hospice care. Hospice care nurse consulted, has been accepted to hospice care. Will be discharged back to [facility] in 1 to 2 days pending improvement in encephalopathy. ? Valium, morphine as needed. #Hypertension ? Hold home torsemide, nadolol. #Type 2 diabetes #Peripheral neuropathy ? Hemoglobin A1c 5.7% in May 2025. Follow-up repeat A1c. Hold off on ACHS glucose checks at this time. ? Hold home gabapentin due to encephalopathy. #COPD ? Continue home Symbicort, Spiriva. #GERD ? Continue home PPI as above. #Anxiety/depression ? Continue home venlafaxine. Hold home trazodone due to encephalopathy. DNR DVT prophylaxis: IPC's. Home medications: Holding due to encephalopathy.
--- NOTE | 2025-08-15 22:01 | EXP.EVENT.NO ---
Advanced care planning note. Personal present: Me (Dr. Johnson), Oswald GORDON, and other family members. #Suspected ovarian malignancy #Hospice care #Acute on chronic microcytic anemia #Possible upper GI bleed, resolved ? CTA abdomen/pelvis on 08/14/2025 revealed large 14 cm cystic right adnexal mass most consistent with ovarian neoplasm. ? Given this finding, and the fact the patient has expressed that she would not want any aggressive measures including biopsy son who is POA at bedside made the decision to pursue hospice care. Hospice care nurse consulted, has been accepted to hospice care. Will be discharged back to [facility] in 1 to 2 days pending improvement in encephalopathy. ? Patient does have a history of cirrhosis, could have been variceal bleed. GI evaluated, given that patient was just weaned off Levophed and encephalopathy which poses her at her higher risk for sedated procedure. Will hold off on EGD for now, especially as family has decided to pursue hospice care. ? Valium, morphine as needed. Time spent: 25 mins.
--- NOTE | 2025-08-15 22:30 | PC.NURSE ---
Earlier during this shift (around 20:00), the patient's IV site in the left antecubital appeared to be leaking serosanguineous fluid. The IV site was saline-locked upon inspection. Site in the left antecubital was removed. Patient's family members requested IV site in the right wrist to be removed during the antibiotic infusion, for the patient was complaining of pain in her right arm. The family members also expressed concerns about the swelling in her right upper extremity. Antibiotic infusion was stopped, and the IV site was assessed by me. Significant swelling in the patient's right (and left) upper extremity was previously present upon initial assessment. The IV site would flush without difficulty, and there was no visible increase in swelling or leakage. There was no blood return from the IV. Thus, the IV site was removed anyway per family concerns, and the antibiotic line was replaced to the left internal jugular site to finish. Patient's remaining IV access remains to the left internal jugular. Family members requested no additional IV accesses if possible at this time.
[2025-08-16] VITALS (7 sets, daily range): BP systolic 120–145; BP diastolic 57–103; PULSE 68–105; RESP 14–20; TEMP 36.2–36.9; O2SAT 82–97; BMI 37.6
[2025-08-16] MEDS: diazePAM 10MG/2ML SYRINGE 5 MG IV ×4 (00:20→22:08)
[2025-08-16] MEDS: humaLOG 100 UNITS/ML 10ML VIAL (SSI) SUBCUT (00:40)
[2025-08-16] MEDS: ONDANSETRON 4MG/2ML VIAL 4 MG IV (00:40)
[2025-08-16 00:41] LABS: POC Glucose,Bedside 157 gm/dL (70-110)
--- NOTE | 2025-08-16 04:35 | PC.NURSE ---
Addendum entered by Alyse Maradiaga RN 08/16/25 06:25: Patient was becoming very agitated and attempted to climb out of bed. Mitts were removed, and the patient was sat upright in bed. A second dose of Valium was administered per MAR; within seconds, the patient drifted off into a resting period. Respirations are even and unlabored. A [place] RT notified me that she increased the patient's oxygen flow to 3 L due to decreased oxygen saturations per portable pulse ox. Breathing treatments administered per MAR as well. Patient's family members requested to hold off on insulin coverage due to the patient's restlessness. Glucose reading was 158 this morning. Original Note: GCS 11. Orientation status is unable to be accurately assessed due to altered mental status; however, the patient awakens to name, shaking, and light pain. Also makes intermittent direct eye contact during wakeful periods, verbalizes sporadic phrases such as no more, and pull me up but does not always answer questions. Patient has also occasionally shook/nodded her head to yes/no questions, particular to oral care performed this shift. Family members have remained at the bedside. She was observed to have both wakeful periods and resting periods throughout this shift. Valium (see provider notification intervention for 00:05) was administered for agitation and restlessness per MAR this shift. Morphine was administered for generalized pain relief (evaluated via Almeida-Sanchez Faces scale) per MAR. Zofran was administered once per MAR this shift due to dry heaving occurrence. Scheduled medications were administered per MAR (except for oral medications due to safety concerns, altered mental status, and high aspiration risk). LR continues to infuse at 50 mL/hr. Soft mitts (from the [employer] utility closet) were placed onto the patient this morning due to multiple tendencies of pulling off nasal cannula and pulling at left internal jugular site. Despite reorientation from family members and nursing staff about pulling at these items, the patient continued to do so. She is unable to comprehend directions at this time. Physical assessment performed as appropriately for this shift (see nursing shift biophysical intervention). Oxygen saturations > 90% on 2 L of oxygen via nasal cannula. She has been repositioned/turned in bed as patient allows and during decreased agitation periods. Legs and arms elevated with pillows. Decker catheter remains intact. No bowel movement this shift. NPO diet. Glucose checks performed every 6 hours. At this time, the patient remains resting in bed. No new needs vocalized. Bed alarm on. Call light within reach.
[2025-08-16] MEDS: IPRATROPIUM/ALBUTEROL 3 ML NEB IH ×3 (06:09→18:14)
[2025-08-16] MEDS: BUDESONIDE 0.5MG/2ML NEB 0.5 MG IH ×2 (06:09→18:14)
[2025-08-16 06:28] LABS: POC Glucose,Bedside 158 gm/dL (70-110)
[2025-08-16 07:10] LABS: Hematocrit 31.4 % (37.0-47.0); Hemoglobin 9.5 g/dL (12.2-16.2); Immature Granulocytes % 0.9 %; Mean Corpuscular HGB Conc 30.3 g/dL (31.8-35.4); Mean Corpuscular Hemoglobin 29.9 pg (27.0-31.2); Mean Corpuscular Volume 98.7 fl (81-99); Nucleated Red Blood Cells % 0.4 %; Platelet Count 105 K/mm3 (142-424); Red Blood Count 3.18 M/mm3 (4.20-5.40); Red Cell Distribution Width-SD 57.1 fL; White Blood Count 10.4 K/mm3 (4.8-10.8)
[2025-08-16 07:18] LABS: Alanine Aminotransferase 47 U/L (12-78); Albumin Level 2.9 g/dl (3.5-5.0); Albumin/Globulin Ratio 0.9 (1.1-1.8); Alkaline Phosphatase 98 U/L (38-126); Anion Gap 8.5 mEq/L (5-15); Aspartate Amino Transferase 56 U/L (14-36); Bilirubin,Total 0.8 mg/dl (0.2-1.3); Blood Urea Nitrogen 60 mg/dl (7-17); Calcium 9.2 mg/dl (8.4-10.2); Carbon Dioxide 33 mmol/L (22.0-30.0); Chloride 110 mmol/L (98-107); Creatinine Clearance Estimated 67 mL/min (50-200); Creatinine,Serum 1.20 mg/dl (0.52-1.04); Estimated Glomerular Filt Rate 44 ml/min (>60); GFR (African American) 53 ML/MIN (>60); Globulin 3.1 g/dL (1.3-3.2); Glucose 153 mg/dl (74-100); Potassium 4.5 mmoL/L (3.5-5.1); Sodium 147 mmol/L (136-145); Total Protein,Serum 6.0 g/dl (6.3-8.2)
[2025-08-16 07:22] LABS: C-Reactive Protein 43.3 mg/L (0-4)
[2025-08-16] MEDS: PANTOPRAZOLE 40MG VIAL 40 MG IV ×2 (09:09→20:40)
[2025-08-16] MEDS: SODIUM CHLORIDE 0.9% 10ML VIAL 10 ML IV ×2 (09:09→20:40)
[2025-08-16] MEDS: CEFEPIME HCL 2 GM in 0.9 % SODIUM CHLORIDE 100 ML IV ×2 (09:09→20:40)
[2025-08-16] MEDS: MORPHINE 2MG/ML SYRINGE 2 MG IV ×2 (09:17→19:48)
[2025-08-16] MEDS: FUROSEMIDE 20 MG/2 ML VIAL IV (14:57)
--- NOTE | 2025-08-16 15:40 | P.PN_ITS ---
Subjective *Date: 08/16/25 *Time: 15:40 Interval history: Patient's mentation is significant improving, with improvement in uremia. Has been accepted to hospice care for suspected ovarian malignancy, plan to discharge back to [facility] once encephalopathy continues to improve. Exam Data for Last 24 hours Vital signs and Labs for Last 24 Hours: Temp Pulse Resp BP Pulse Ox O2 Del Method O2 Flow Rate 98.4 F 85 20 120/62 92 L Nasal Cannula 3 08/16/25 12:00 08/16/25 12:09 08/16/25 12:00 08/16/25 12:00 08/16/25 12:00 08/16/25 15:00 08/16/25 15:00 FiO2 50 08/15/25 03:40 Laboratory Results - last 24 hr 08/13/25 05:15: Crossmatch (AHG) See Detail 08/13/25 14:32: Zinc 57 08/15/25 13:50: Chlamy pneumoniae PCR Not detected, Adenovirus (PCR) Not detected, B. pertussis DNA (PCR) Not detected, Coronavirus OC43 (PCR) Not detected, Coronavirus HKU1 (PCR) Not detected, Coronavirus 229E (PCR) Not detected, SARS-CoV-2 (PCR) Not detected, Coronavirus NL63 (PCR) Not detected, Human Metapneumovir PCR Not detected, Influenza A (H1) PCR Not detected, Influ A (H1N1/09) PCR Not detected, Influenza A (H3) PCR Not detected, Influenza Type A (PCR) Not detected, Influenza Type B (PCR) Not detected, M. pneumoniae (PCR) Not detected, Parainfluenza 1 (PCR) Not detected, Parainfluenza 2 (PCR) Not detected, Parainfluenza 3 (PCR) Not detected, Parainfluenza 4 (PCR) Not detected, RSV (PCR) Not detected, Entero/Rhino (PCR) Not detected 08/15/25 16:35: POC Glucose 139 H 08/16/25 00:29: POC Glucose 157 H 08/16/25 05:58: POC Glucose 158 H 08/16/25 06:30: WBC 10.4, RBC 3.18 L, Hgb 9.5 L, Hct 31.4 L, MCV 98.7, MCH 29.9, MCHC 30.3 L, RDW 18.6 H, Plt Count 105 L, MPV 10.2, Neut % (Auto) 80.1 H, Lymph % (Auto) 12.6, Haakon % (Auto) 6.1, Eos % (Auto) 0.2, Baso % (Auto) 0.1, Neut # (Auto) 8.4 H, Lymph # (Auto) 1.3, Haakon # (Auto) 0.6, Eos # (Auto) 0.0, Baso # (Auto) 0.0, Sodium 147 H, Potassium 4.5, Chloride 110 H, Carbon Dioxide 33 H, Anion Gap 8.5, BUN 60 H, Creatinine 1.20 H, Estimated Creat Clear 67, Estimated GFR 44 L, Est GFR ( Amer) 53 L D, Glucose 153 H, Calcium 9.2, Total Bilirubin 0.8, AST 56 H, ALT 47, Alkaline Phosphatase 98, C-Reactive Protein 43.3 H, Total Protein 6.0 L, Albumin 2.9 L, Globulin 3.1, Albumin/Globulin Ratio 0.9 L I & O for Last 24 hours: Intake & Output 08/13/25 08/14/25 08/15/25 08/16/25 23:59 23:59 23:59 23:59 Intake Total 2403.75 / 2403.75 1909.953 / 1909.953 580 / 580 1466.797 / 1466.797 Output Total 825 / 1525 3075 / 3075 2575 / 2825 1350 / 1350 Balance 1578.75 / 878.75 -1165.047 / -1165.047 -1994 / 2245 116.797 / 116.797 Weight 105.188 kg 105.687 kg 106.2 kg 106.2 kg Microbiology Reports for the Last 24 Hours: Microbiology 08/15/25 15:15 Nose - Nasal MRSA Culture - Final No growth. 08/14/25 18:07 Sputum - Expectorated Sputum Sputum Culture - Preliminary Gram Negative Rods Constitutional Constitutional: no acute distress and chronically ill appearing Comments: Encephalopathic, significantly improving *Routine HEENT Exam Head: Present normocephalic Eye: Present EOMI and PERRL ENT: Present mucous membranes moist *Routine Neck Exam Neck: Present supple; Absent lymphadenopathy *Routine Respiratory Exam Respiratory: Present CTA bilaterally *Routine Cardiovascular Exam Cardiovascular: Present RRR *Routine Abdominal Exam Abdominal: Present soft and normoactive bowel sounds; Absent tenderness *Routine Extremities Exam Extremities: Present edema; Absent cyanosis or clubbing *Routine Skin Exam Skin: Present warm; Absent rash *Routine Neurological Exam Neurological: Present alert Assessment and Plan *Assessment and plan (1) Encephalopathy: Status: Acute Category: Medical Code(s): G93.40 - Encephalopathy, unspecified (2) Ovarian mass: Status: Acute Category: Medical Code(s): N83.8 - Other noninflammatory disorders of ovary, fallopian tube and broad ligament Plan Ambar Fernandez is a 75-year-old female who presented with altered mentation and was admitted for acute metabolic encephalopathy with UTI, hemorrhagic shock, acute on chronic anemia from suspected upper GI bleed. #Hypotension, resolved #Acute on chronic microcytic anemia #Possible upper GI bleed, resolved #Hyperkalemia, resolved #Epigastric/RUQ abdominal pain, resolved #History of cirrhosis ? Patient presented with altered mentation, weakness, elevated heart rate, hypoxia at nursing facility. ? Initial hemoglobin 4.1, MCV 100, with discordantly high BUN 104, potassium 7.1, with right upper quadrant/epigastric abdominal pain. FOBT positive for blood. ? Hemoglobin improved from 4.1-8.0, then dropped to 8.5 after 4 units PRBC transfusion. Required subsequent Lasix due to pulmonary edema. Weaned off Levophed on 08/14/2025. ? Hemoglobin continues to be stable, 9.5 today. No tachycardia, BUN and potassium improving. If there was an upper GI bleed, it seems to be resolved at this time. No hematochezia, melena. ? Patient does have a history of cirrhosis, could have been variceal bleed. GI evaluated, given that patient was just weaned off Levophed and encephalopathy which poses her at her higher risk for sedated procedure. Will hold off on EGD for now, especially as family has decided to pursue hospice care. ? Continue IV Protonix 40 mg twice daily. #Acute metabolic encephalopathy #Hyper uremia #Hypercapnic respiratory failure, compensated #Community-acquired pneumonia ? Patient had been encephalopathic during most of initial hospital course, arousable but confused and somnolent. ? Initial CXR concerning for bibasilar opacities. VBG showing compensated hypercapnia. ? Encephalopathy significantly improved today, likely from uremia improving. BUN 60 today, peaked at 102. ? Continue IV cefepime 2 g every 12 hours. ? DuoNebs every 6 hours. ? Blood, cultures normal. 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 CTA abdomen/pelvis on 08/14/2025 revealed large 14 cm cystic right adnexal mass most consistent with ovarian neoplasm. ? Given this finding, and the fact the patient has expressed that she would not want any aggressive measures including biopsy son who is POA at bedside made the decision to pursue hospice care. Hospice care nurse consulted, has been accepted to hospice care. Will be discharged back to [facility] in 1 to 2 days pending improvement in encephalopathy. ? Valium, morphine as needed. #Hypertension ? Hold home torsemide, nadolol as BP stable. #Type 2 diabetes #Peripheral neuropathy ? Hemoglobin A1c 5.7% in May 2025. Follow-up repeat A1c. Hold off on ACHS glucose checks at this time. ? Hold home gabapentin due to encephalopathy. #COPD ? Hold home Symbicort, Spiriva as patient encephalopathic. Continue DuoNebs. #GERD ? Continue home PPI as above. #Anxiety/depression ? Continue home venlafaxine. Hold home trazodone due to encephalopathy. DNR DVT prophylaxis: IPC's. Home medications: Holding due to encephalopathy.
--- NOTE | 2025-08-16 16:08 | PC.NURSE ---
pt resting supine in bed with eyes closed, respirations equal and unlabored. pt had brief periods of agitation, but redirected by family. morphine and valium given per mar PRN for comfort. requiring 3LNC to maintain sats >90%. IJ to L neck intact, patent and pink. hospice consulted with pt and family this shift and accepted pt. family requested pt to not receive oral medication, no fingersticks and to minimally disturb patient. no needs at this time. call light within reach.
--- NOTE | 2025-08-17 00:23 | EXP.EVENT.NO ---
Patient still anxious after receiving 5 p.o. Valium. Family requesting something IV. Apparently there is an IV Ativan shortage. Wrote for 1 mg IV perspiring.
[2025-08-17] MEDS: diazePAM 10MG/2ML SYRINGE IV (00:40)
[2025-08-17] MEDS: MORPHINE 2MG/ML SYRINGE 2 MG IV ×2 (02:22→16:35)
[2025-08-17 04:00] VITALS: BP 142/57; PULSE 82; RESP 20; TEMP 36.5; O2SAT 91; BMI 36.1
--- NOTE | 2025-08-17 04:30 | PC.NURSE ---
Addendum entered by Alyse Maradiaga RN 08/17/25 05:50: Patient is currently resting upright in bed with eyes closed. Addendum entered by Alyse Maradiaga RN 08/17/25 05:45: After Valium administration this morning (at 05:10 per MAR), the patient started to have dry heaving episodes. Zofran was administered at this time for dry heaving + nausea cues. Original Note: GCS 13. Patient has expressed more alertness and has been a bit more vocal while awake. Has also been maintaining direct eye contact and grasping family members' + nursing staffs' hands when addressed by her name and/or to indicate needs this shift. Sporadic phrases continue to be made, such as ice, please, I need to pee, and I love you. Patient remains able to shake/nod her head to some yes/no questions. Family members have remained at the bedside. She was observed to have both wakeful periods and resting periods throughout this shift. Valium was administered accordingly for agitation and restlessness per MAR this shift. An extra dose of Valium 1 mg (see provider notification intervention for 00:15) was given due to an anxiety episode. Morphine was administered accordingly for generalized pain and bilateral leg pain reports. Patient has not had any dry heaving this shift. Scheduled medications were administered per MAR (except for oral medications due to ongoing family refusal). Physical assessment performed as appropriately for this shift (see nursing shift biophysical intervention). Oxygen saturations > 90% on 3 L of oxygen via nasal cannula. Left internal jugular intravenous site remains intact. Oral care performed. Patient family members requested patient to be turned by nursing staff in the morning instead of during the night to allow her to rest through the night. Has been repositioned as needed, however. Legs and arms remain elevated with pillows. Decker catheter remains intact. No bowel movement this shift. NPO diet. Glucose checks refused by patient family members. At this time, the patient remains resting in bed. Call light within reach.
[2025-08-17] MEDS: diazePAM 10MG/2ML SYRINGE 5 MG IV (05:10)
[2025-08-17 05:43] LABS: Alanine Aminotransferase 39 U/L (12-78); Albumin Level 2.8 g/dl (3.5-5.0); Albumin/Globulin Ratio 0.9 (1.1-1.8); Alkaline Phosphatase 91 U/L (38-126); Anion Gap 6.1 mEq/L (5-15); Aspartate Amino Transferase 44 U/L (14-36); Bilirubin,Total 0.7 mg/dl (0.2-1.3); Blood Urea Nitrogen 51 mg/dl (7-17); Calcium 9.0 mg/dl (8.4-10.2); Carbon Dioxide 35 mmol/L (22.0-30.0); Chloride 107 mmol/L (98-107); Creatinine Clearance Estimated 70 mL/min (50-200); Creatinine,Serum 1.10 mg/dl (0.52-1.04); Estimated Glomerular Filt Rate 48 ml/min (>60); GFR (African American) 58 ML/MIN (>60); Globulin 3.1 g/dL (1.3-3.2); Glucose 144 mg/dl (74-100); Potassium 4.1 mmoL/L (3.5-5.1); Sodium 144 mmol/L (136-145); Total Protein,Serum 5.9 g/dl (6.3-8.2)
[2025-08-17] MEDS: ONDANSETRON 4MG/2ML VIAL 4 MG IV (05:45)
[2025-08-17 05:48] LABS: Hematocrit 28.6 % (37.0-47.0); Hemoglobin 8.8 g/dL (12.2-16.2); Immature Granulocytes % 0.4 %; Mean Corpuscular HGB Conc 30.8 g/dL (31.8-35.4); Mean Corpuscular Hemoglobin 30.3 pg (27.0-31.2); Mean Corpuscular Volume 98.6 fl (81-99); Nucleated Red Blood Cells % 0 %; Platelet Count 91 K/mm3 (142-424); Red Blood Count 2.90 M/mm3 (4.20-5.40); Red Cell Distribution Width-SD 57.9 fL; White Blood Count 7.4 K/mm3 (4.8-10.8)
[2025-08-17 08:00] VITALS: BP 165/81; PULSE 83; RESP 16; TEMP 36.8; O2SAT 94
[2025-08-17] MEDS: CEFEPIME HCL 2 GM in 0.9 % SODIUM CHLORIDE 100 ML IV ×2 (08:36→17:07)
[2025-08-17] MEDS: PANTOPRAZOLE 40MG VIAL 40 MG IV ×2 (08:36→21:59)
[2025-08-17] MEDS: FUROSEMIDE 40MG/4ML VIAL 40 MG IV (08:36)
[2025-08-17] MEDS: SODIUM CHLORIDE 0.9% 10ML VIAL 10 ML IV ×2 (08:36→21:59)
--- NOTE | 2025-08-17 09:15 | EXP.PHA.PN ---
Subjective *Date: 08/17/25 *Time: 09:15 Medical Exam Vital signs and Labs for Last 24 Hours: Vital Signs Temp Pulse Pulse Resp BP Pulse Ox O2 Del Method 08/17/25 08:50 Nasal Cannula 08/17/25 08:00 98.2 F 83 16 165/81 H 94 L Nasal Cannula 08/17/25 08:00 Nasal Cannula 08/17/25 06:55 Nasal Cannula 08/17/25 05:00 Nasal Cannula 08/17/25 04:00 97.7 F 82 20 142/57 H 91 L 08/17/25 03:00 Nasal Cannula 08/17/25 01:00 Nasal Cannula 08/16/25 23:00 Nasal Cannula 08/16/25 21:00 Nasal Cannula 08/16/25 20:00 Nasal Cannula 08/16/25 20:00 98.1 F 78 18 145/57 H 97 Nasal Cannula 08/16/25 19:46 Nasal Cannula 08/16/25 18:44 Nasal Cannula 08/16/25 17:00 Nasal Cannula 08/16/25 15:00 Nasal Cannula 08/16/25 13:00 Nasal Cannula 08/16/25 12:09 85 08/16/25 12:09 88 08/16/25 12:00 98.4 F 78 20 120/62 92 L Nasal Cannula 08/16/25 11:00 Nasal Cannula O2 Flow Rate 08/17/25 08:50 3 08/17/25 08:00 3.5 08/17/25 08:00 3 08/17/25 06:55 3 08/17/25 05:00 3 08/17/25 04:00 3 08/17/25 03:00 3 08/17/25 01:00 3 08/16/25 23:00 3 08/16/25 21:00 3 08/16/25 20:00 3 08/16/25 20:00 3 08/16/25 19:46 3 08/16/25 18:44 3 08/16/25 17:00 3 08/16/25 15:00 3 08/16/25 13:00 3 08/16/25 12:09 08/16/25 12:09 08/16/25 12:00 3.5 08/16/25 11:00 3 Intake and Output 08/16/25 08/17/25 08/17/25 23:59 07:59 15:59 Intake Total 180 / 1656.797 20 / 120 100 / 120 Output Total 1400 / 2800 500 / 500 Balance -1220 / -1143.203 -480 / -380 100 / -380 Intake: Intake, Oral Amount 80 / 100 20 / 20 Intake, Total IV Amount 100 / 1556.797 100 / 100 Cefepime HCl 2 gm In 0.9 % 100 / 200 100 / 100 Sodium Chloride 100 ml @ 200 mls/hr IV Q12H [facility] Rx#:[id number] Output: Output, Urine Amount 500 / 500 Output, Urine Amount (Catheter) 1400 / 1400 Decker 1400 / 1400 Other: Number of Unmeasured Voids 0 Weight 101.8 kg Patient Weight 08/17/25 23:59 Weight 101.8 kg Laboratory Results - last 24 hr 08/17/25 05:20: WBC 7.4 D, RBC 2.90 L, Hgb 8.8 L, Hct 28.6 L, MCV 98.6, MCH 30.3, MCHC 30.8 L, RDW 18.7 H, Plt Count 91 L, MPV 10.0, Neut % (Auto) 77.1, Lymph % (Auto) 13.2, Hopkins % (Auto) 8.8, Eos % (Auto) 0.4, Baso % (Auto) 0.1, Neut # (Auto) 5.7, Lymph # (Auto) 1.0, Hopkins # (Auto) 0.7, Eos # (Auto) 0.0, Baso # (Auto) 0.0, Sodium 144, Potassium 4.1, Chloride 107, Carbon Dioxide 35 H, Anion Gap 6.1, BUN 51 H, Creatinine 1.10 H, Estimated Creat Clear 70, Estimated GFR 48 L, Est GFR ( Amer) 58 L, Glucose 144 H, Calcium 9.0, Total Bilirubin 0.7, AST 44 H, ALT 39, Alkaline Phosphatase 91, Total Protein 5.9 L, Albumin 2.8 L, Globulin 3.1, Albumin/Globulin Ratio 0.9 L I & O for Labs for Last 24 Hours: Intake & Output 08/14/25 08/15/25 08/16/25 08/17/25 23:59 23:59 23:59 23:59 Intake Total 1909.953 / 1909.953 580 / 580 1646.797 / 1656.797 120 / 120 Output Total 3075 / 3075 2575 / 2825 2750 / 2800 500 / 500 Balance -1165.047 / -1165.047 -1994 / -5 -1103.203 / -1143.203 -380 / -380 Weight 105.687 kg 106.2 kg 106.2 kg 101.8 kg Microbiology Reports for the Last 24 Hours: Microbiology 08/14/25 18:07 Sputum - Expectorated Sputum Sputum Culture - Final Pseudomonas aeruginosa 08/13/25 04:40 Blood Blood Culture - Preliminary NO GROWTH AFTER 4 DAYS 08/13/25 04:40 Blood Blood Culture - Preliminary NO GROWTH AFTER 4 DAYS 08/15/25 15:15 Nose - Nasal MRSA Culture - Final No growth. The patient's infection will respond to the chosen ABx?: Yes Is the patient receiving the right drug, dose, and route?: Yes Could a more targeted ABx be ordered?: No (SPUTUM CX GROWING PSEUDOMONAS SENSITIVE TO CEFEPIME)
--- NOTE | 2025-08-17 12:14 | P.PN_ITS ---
Subjective *Date: 08/17/25 *Time: 12:14 Interval history: Encephalopathy significantly improved on 08/16/2025, likely from uremia improving. Still not able to have meaningful conversations, but expressing with 1-2 words and following commands. Started melatonin 5 mg, Zyprexa 5 mg nightly as patient is not sleeping well which is likely contributing to hospital- acquired delirium. Exam Data for Last 24 hours Vital signs and Labs for Last 24 Hours: Temp Pulse Resp BP Pulse Ox O2 Del Method O2 Flow Rate 98.2 F 83 16 165/81 H 94 L Nasal Cannula 3 08/17/25 08:00 08/17/25 08:00 08/17/25 08:00 08/17/25 08:00 08/17/25 08:00 08/17/25 11:00 08/17/25 11:00 FiO2 50 08/15/25 03:40 Laboratory Results - last 24 hr 08/17/25 05:20: WBC 7.4 D, RBC 2.90 L, Hgb 8.8 L, Hct 28.6 L, MCV 98.6, MCH 30.3, MCHC 30.8 L, RDW 18.7 H, Plt Count 91 L, MPV 10.0, Neut % (Auto) 77.1, Lymph % (Auto) 13.2, Andrews % (Auto) 8.8, Eos % (Auto) 0.4, Baso % (Auto) 0.1, Neut # (Auto) 5.7, Lymph # (Auto) 1.0, Andrews # (Auto) 0.7, Eos # (Auto) 0.0, Baso # (Auto) 0.0, Sodium 144, Potassium 4.1, Chloride 107, Carbon Dioxide 35 H, Anio n Gap 6.1, BUN 51 H, Creatinine 1.10 H, Estimated Creat Clear 70, Estimated GFR 48 L, Est GFR ( Amer) 58 L, Glucose 144 H, Calcium 9.0, Total Bilirubin 0.7, AST 44 H, ALT 39, Alkaline Phosphatase 91, Total Protein 5.9 L, Albumin 2.8 L, Globulin 3.1, Albumin/Globulin Ratio 0.9 L I & O for Last 24 hours: Intake & Output 08/14/25 08/15/25 08/16/25 08/17/25 23:59 23:59 23:59 23:59 Intake Total 1909.953 / 1909.953 580 / 580 1646.797 / 1656.797 120 / 120 Output Total 3075 / 3075 2575 / 2825 2750 / 2800 500 / 500 Balance -1165.047 / -1165.047 -1994 / -2245 -1103.203 / -1143.203 -380 / -380 Weight 105.687 kg 106.2 kg 106.2 kg 101.8 kg Microbiology Reports for the Last 24 Hours: Microbiology 08/14/25 18:07 Sputum - Expectorated Sputum Sputum Culture - Final Pseudomonas aeruginosa 08/13/25 04:40 Blood Blood Culture - Preliminary NO GROWTH AFTER 4 DAYS 08/13/25 04:40 Blood Blood Culture - Preliminary NO GROWTH AFTER 4 DAYS Constitutional Constitutional: no acute distress and chronically ill appearing Comments: Encephalopathic, significantly improving *Routine HEENT Exam Head: Present normocephalic Eye: Present EOMI and PERRL ENT: Present mucous membranes moist *Routine Neck Exam Neck: Present supple; Absent lymphadenopathy *Routine Respiratory Exam Respiratory: Present CTA bilaterally *Routine Cardiovascular Exam Cardiovascular: Present RRR *Routine Abdominal Exam Abdominal: Present soft and normoactive bowel sounds; Absent tenderness *Routine Extremities Exam Extremities: Present edema; Absent cyanosis or clubbing *Routine Skin Exam Skin: Present warm; Absent rash *Routine Neurological Exam Neurological: Present alert Assessment and Plan *Assessment and plan (1) Encephalopathy: Status: Acute Category: Medical Code(s): G93.40 - Encephalopathy, unspecified (2) Ovarian mass: Status: Acute Category: Medical Code(s): N83.8 - Other noninflammatory disorders of ovary, fallopian tube and broad ligament Plan Ambar Fernandez is a 75-year-old female who presented with altered mentation and was admitted for acute metabolic encephalopathy with UTI, hemorrhagic shock, acute on chronic anemia from suspected upper GI bleed. #Hypotension, resolved #Acute on chronic microcytic anemia #Possible upper GI bleed, resolved #Hyperkalemia, resolved #Epigastric/RUQ abdominal pain, resolved #History of cirrhosis ? Patient presented with altered mentation, weakness, elevated heart rate, hypoxia at nursing facility. ? Initial hemoglobin 4.1, MCV 100, with discordantly high BUN 104, potassium 7.1, with right upper quadrant/epigastric abdominal pain. FOBT positive for blood. ? Hemoglobin improved from 4.1 after 4 units PRBC transfusion. Required subsequent Lasix due to pulmonary edema. Weaned off Levophed on 08/14/2025. ? Hemoglobin continues to be stable, 8.8 today. No tachycardia, BUN and potass ium improving. If there was an upper GI bleed, it seems to be resolved at this time. No hematochezia, melena. ? Patient does have a history of cirrhosis, could have been variceal bleed. GI evaluated, given that patient was just weaned off Levophed and encephalopathy which poses her at her higher risk for sedated procedure. Will hold off on EGD for now, especially as family has decided to pursue hospice care. ? Continue IV Protonix 40 mg twice daily. #Acute metabolic encephalopathy #Hyper uremia #Hypercapnic respiratory failure, compensated #Community-acquired pneumonia #Hospital-acquired delirium ? Patient had been encephalopathic during most of initial hospital course, arousable but confused and somnolent. ? Initial CXR concerning for bibasilar opacities. VBG showing compensated hypercapnia. ? Encephalopathy significantly improved on 08/16/2025, likely from uremia improving. Still not able to have meaningful conversations, but expressing with 1-2 words and following commands. ? BUN improved to 51 today, peaked at 102. ? Respiratory panel showing Pseudomonas growth. ? Continue IV cefepime 2 g every 12 hours for total of 7 days. ? Started melatonin 5 mg, Zyprexa 5 mg nightly as patient is not sleeping well which is likely contributing to hospital-acquired delirium. ? DuoNebs every 6 hours. ? Blood cultures normal. 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 CTA abdomen/pelvis on 08/14/2025 revealed large 14 cm cystic right adnexal mass most consistent with ovarian neoplasm. ? Given this finding, and the fact the patient has expressed that she would not want any aggressive measures including biopsy son who is POA at bedside made the decision to pursue hospice care. Hospice care nurse consulted, has been accepted to hospice care. Will be discharged back to [facility] in 1 to 2 days pending improvement in encephalopathy. ? Valium, morphine as needed. #HFpEF ? Continues to be volume overloaded from fluid resuscitation, ordered IV Lasix 40 mg. #Hypertension ? Hold home torsemide, nadolol as BP stable. #Type 2 diabetes #Peripheral neuropathy ? Hemoglobin A1c 5.7% in May 2025. Follow-up repeat A1c. Hold off on ACHS glucose checks at this time. ? Hold home gabapentin due to encephalopathy. #COPD ? Hold home Symbicort, Spiriva as patient encephalopathic. Continue DuoNebs. #GERD ? Continue home PPI as above. #Anxiety/depression ? Continue home venlafaxine. Hold home trazodone due to encephalopathy. DNR DVT prophylaxis: IPC's. Home medications: Holding due to encephalopathy.
[2025-08-17 16:00] VITALS: BP 148/91; PULSE 98; RESP 22; TEMP 36.9; O2SAT 93
[2025-08-17] MEDS: NYSTATIN TOPICAL POWDER 30GM TP (16:36)
--- NOTE | 2025-08-17 17:31 | PC.NURSE ---
pt resting supine in bed with eyes closed, respirations equal and unlabored. pt had brief periods of agitation, but redirected by family. morphine given per mar PRN for comfort. requiring 3LNC to maintain sats >90%. IJ to L neck intact, patent and pink. dressing change completed this shift. family requested pt to not receive oral medication, no fingersticks and to minimally disturb patient. pt able to adjust in bed independently. no needs at this time. call light within reach.
[2025-08-17 20:00] VITALS: BP 130/98; PULSE 77; RESP 16; TEMP 36.7; O2SAT 88
[2025-08-17] MEDS: MELATONIN 5MG TABLET 5 MG PO (21:59)
[2025-08-17] MEDS: OLANZapine 5 MG ODT TABLET SL (21:59)
[2025-08-18] MEDS: CEFEPIME HCL 2 GM in 0.9 % SODIUM CHLORIDE 100 ML IV ×2 (00:04→09:55)
[2025-08-18] MEDS: diazePAM 10MG/2ML SYRINGE 5 MG IV (00:40)
[2025-08-18 04:00] VITALS: BP 114/45; PULSE 61; RESP 18; TEMP 36.4; O2SAT 96
--- NOTE | 2025-08-18 05:00 | PC.NURSE ---
GCS remains 13. Patient alertness continues to show improvement. She maintains eye contact when spoken to, but is unable to have appropriate conversations at this time. Sporadic phrases continue to be made, such as ice, sugar-free, I love you, pull me up some more, and tea. Patient remains able to shake/nod her head to yes/no questions. Family members have remained at the bedside. She was observed to be resting in bed with eyes closed, respirations even and unlabored, and no apparent distress since receiving Valium (at 00:40). Valium was administered once per DEC due to an exhibited difficulty with falling sleep despite administration of Melatonin and Zyprexa (patient's family was open to allowing administration of these oral medications only ). No indications of pain (per nonverbal and verbal cues) were made this shift. Patient has not had any dry heaving as well. Physical assessment performed as appropriately for this shift (see nursing shift biophysical intervention). Oral care performed; tongue remains beefy red and fissured. Patient has been able to pull herself upright in bed using the bed rails while awake; she also exhibited some strength to assist with repositioning as well. Minimal disturbance per family request ongoing, however. Decker catheter remains intact. No bowel movement this shift. NPO diet. Glucose checks remain refused by patient's family members. At this time, the patient remains resting in bed. Call light is within reach.
[2025-08-18 06:19] LABS: Hematocrit 27.3 % (37.0-47.0); Hemoglobin 8.4 g/dL (12.2-16.2); Immature Granulocytes % 0.6 %; Mean Corpuscular HGB Conc 30.8 g/dL (31.8-35.4); Mean Corpuscular Hemoglobin 30.4 pg (27.0-31.2); Mean Corpuscular Volume 98.9 fl (81-99); Nucleated Red Blood Cells % 0 %; Platelet Count 76 K/mm3 (142-424); Red Blood Count 2.76 M/mm3 (4.20-5.40); Red Cell Distribution Width-SD 59.7 fL; White Blood Count 5.1 K/mm3 (4.8-10.8)
[2025-08-18 06:53] LABS: Alanine Aminotransferase 33 U/L (12-78); Albumin Level 2.5 g/dl (3.5-5.0); Albumin/Globulin Ratio 0.8 (1.1-1.8); Alkaline Phosphatase 83 U/L (38-126); Anion Gap 3.4 mEq/L (5-15); Aspartate Amino Transferase 46 U/L (14-36); Bilirubin,Total 0.6 mg/dl (0.2-1.3); Blood Urea Nitrogen 39 mg/dl (7-17); Calcium 8.6 mg/dl (8.4-10.2); Carbon Dioxide 38 mmol/L (22.0-30.0); Chloride 104 mmol/L (98-107); Creatinine Clearance Estimated 77 mL/min (50-200); Creatinine,Serum 1.00 mg/dl (0.52-1.04); Estimated Glomerular Filt Rate 54 ml/min (>60); GFR (African American) 65 ML/MIN (>60); Globulin 3.1 g/dL (1.3-3.2); Glucose 117 mg/dl (74-100); Potassium 3.4 mmoL/L (3.5-5.1); Sodium 142 mmol/L (136-145); Total Protein,Serum 5.6 g/dl (6.3-8.2)
[2025-08-18 07:54] VITALS: BP 136/49; PULSE 76; RESP 14; TEMP 36.9; O2SAT 97
--- NOTE | 2025-08-18 09:54 | EXP.PULM.PN ---
Subjective *Date: 08/18/25 *Time: 12:09 Interval history: No acute respiratory vents overnight. Admits continued improvement in her respiratory symptoms. Patient requesting to be discharged. Pulmonology Exam Inpatient Vital signs and Labs for Last 24 Hours: Temp Pulse Resp BP Pulse Ox O2 Del Method O2 Flow Rate 98.5 F 76 14 136/49 L 97 Nasal Cannula 3 08/18/25 07:54 08/18/25 07:54 08/18/25 07:54 08/18/25 07:54 08/18/25 07:54 08/18/25 07:54 08/18/25 07:54 FiO2 50 08/15/25 03:40 Laboratory Results - last 24 hr 08/18/25 05:45: WBC 5.1 D, RBC 2.76 L, Hgb 8.4 L, Hct 27.3 L, MCV 98.9, MCH 30.4, MCHC 30.8 L, RDW 18.4 H, Plt Count 76 L, MPV 10.6 H, Neut % (Auto) 62.9, Lymph % (Auto) 21.3, Brewster % (Auto) 12.1 H, Eos % (Auto) 2.9, Baso % (Auto) 0.2, Neut # (Auto) 3.2, Lymph # (Auto) 1.1, Brewster # (Auto) 0.6, Eos # (Auto) 0.2, Baso # (Auto) 0.0, Sodium 142, Potassium 3.4 L, Chloride 104, Carbon Dioxide 38 H, Anion Gap 3.4 L, BUN 39 H, Creatinine 1.00, Estimated Creat Clear 77, Estimated GFR 54 L, Est GFR ( Amer) 65, Glucose 117 H, Calcium 8.6, Total Bilirubin 0.6, AST 46 H, ALT 33, Alkaline Phosphatase 83, Total Protein 5.6 L, Albumin 2.5 L D, Globulin 3.1, Albumin/Globulin Ratio 0.8 L Temp Pulse Resp BP Pulse Ox O2 Del Method O2 Flow Rate 97.4 F L 68 20 108/49 L 96 Nasal Cannula 2 08/15/25 08:23 08/15/25 09:01 08/15/25 09:01 08/15/25 09:01 08/15/25 09:01 08/15/25 10:00 08/15/25 10:00 FiO2 50 11/07/25 03:40 Laboratory Results - last 24 hr 08/13/25 04:50: Haptoglobin 98 08/13/25 14:32: Haptoglobin 97 08/14/25 05:56: POC Glucose 113 H 08/14/25 12:29: POC Glucose 110 08/14/25 14:59: POC Glucose 119 H 08/14/25 17:47: Hgb 8.5 L, Hct 27.1 L 08/14/25 18:32: POC Glucose 139 H 08/15/25 00:14: POC Glucose 115 H 08/15/25 03:45: VBG pH 7.36, VBG pCO2 56.7 H, VBG pO2 62.3 H, VBG HCO3 31.6 H, VBG Total CO2 33.3 H, VBG O2 Saturation 91.2 H, VBG Base Excess 6.2 H, VBG Lactic Acid 1.5 08/15/25 04:32: WBC 10.3 D, RBC 2.93 L, Hgb 8.6 L, Hct 28.1 L, MCV 95.9, MCH 29.4, MCHC 30.6 L, RDW 18.2 H, Plt Count 106 L, MPV 10.6 H, Neut % (Auto) 73.8, Lymph % (Auto) 15.3, Brewster % (Auto) 8.9, Eos % (Auto) 1.0, Baso % (Auto) 0.2, Neut # (Auto) 7.6, Lymph # (Auto) 1.6, Brewster # (Auto) 0.9, Eos # (Auto) 0.1, Baso # (Auto) 0.0, Sodium 143, Potassium 5.0, Chloride 106, Carbon Dioxide 33 H, Anion Gap 9.0, BUN 72 H, Creatinine 1.50 H D, Estimated Creat Clear 53, Estimated GFR 34 L, Est GFR ( Amer) 41 L D, Glucose 113 H, Calcium 8.3 L, Total Bilirubin 0.7, AST 70 H, ALT 41, Alkaline Phosphatase 88, Total Protein 5.1 L, Albumin 2.9 L, Globulin 2.2, Albumin/Globulin Ratio 1.3 08/15/25 07:00: POC Glucose 128 H I & O for Labs for Last 24 Hours: Intake & Output 08/15/25 08/16/25 08/17/25 08/18/25 23:59 23:59 23:59 23:59 Intake Total 580 / 580 1646.797 / 1656.797 230 / 230 100 / 100 Output Total 2575 / 2825 2750 / 2800 2100 / 2775 975 / 975 Balance -1995 / -2245 -1103.203 / -1143.203 -1870 / -2545 -875 / -875 Weight 234 lb 2.095 oz 234 lb 2.095 oz 224 lb 6.889 oz Intake & Output 08/12/25 08/13/25 08/14/25 08/15/25 23:59 23:59 23:59 23:59 Intake Total 2403.75 / 2403.75 1909.953 / 1909.953 380 / 380 Output Total 825 / 1525 3075 / 3075 1450 / 1450 Balance 1578.75 / 878.75 -1165.047 / -1165.047 -1070 / -1070 Weight 231 lb 14.4 oz 233 lb 234 lb 2.095 oz Microbiology Reports for the Last 24 Hours: Microbiology 08/14/25 18:07 Sputum - Expectorated Sputum Gram Stain - Final 08/14/25 18:07 Sputum - Expectorated Sputum Sputum Culture - Final Pseudomonas aeruginosa 08/13/25 04:40 Blood Blood Culture - Final NO GROWTH AFTER 5 DAYS 08/13/25 04:40 Blood Blood Culture - Final NO GROWTH AFTER 5 DAYS Microbiology 08/13/25 06:50 Rectum CRE Surveillance Culture - Final 08/13/25 04:40 Blood Blood Culture - Preliminary NO GROWTH AFTER 48 HOURS 08/13/25 04:40 Blood Blood Culture - Preliminary NO GROWTH AFTER 48 HOURS Constitutional: Present severe distress Head: Present normocephalic and atraumatic ENT: Present normal exam, normal oropharynx and mucous membranes moist Neck: Present normal inspection and full ROM Respiratory: Present respiratory distress, rhonchi, diminished air movement and able to speak in complete sentences; Absent wheezes Cardiac: Present S1/S2, Tachycardia and radial pulses present GI: Present soft and distention; Absent tenderness or guarding Rectal (female): Present deferred (female): Present deferred Skin: Present intact; Absent cyanosis or jaundice Neuro: Present alert, awake and oriented x 3 Extremities: Present normal inspection; Absent clubbing or cyanosis Psychiatric: Present anxious; Absent good insight Assessment and Plan *Assessment and plan (1) Pneumonia: Status: Acute Qualifiers: Laterality: bilateral Lung location: lower lobe of lung Pneumonia type: due to unspecified organism Qualified Code(s): J18.9 - Pneumonia, unspecified organism Category: Medical Code(s): J18.9 - Pneumonia, unspecified organism (2) Acute and chronic respiratory failure with hypoxia: Status: Acute Category: Medical Code(s): J96.21 - Acute and chronic respiratory failure with hypoxia Plan Ms. Fernandez is a 75-year-old female with reported history of COPD CHF hypertension anemia presented to ER with complaints of worsening mentation being managed for community-acquired pneumonia, hyperkalemia, and heart failure exacerbation found to have increasing oxygen requirements pulmonary was called for further evaluation and management. CT chest upon admission very minimal patchy airspace disease. Prominent findings include bilateral pleural effusions and adjacent atelectasis. No other dense consolidative changes noted. AFebrile. Neutrophilic predominant leukocytosis, improved. Blood cultures no growth 48 hours. Sputum cultures pending. Chest x-ray showed new right lower lobe airspace disease, new from her admit Currently receiving cefepime. Interval update: No acute respiratory events overnight. Continue to need nasal cannula oxygen supplementation. Procalcitonin within normal limits at 0.68. CRP elevated at 44. Sputum cultures growing Pseudomonas,, sensitive to levofloxacin. Nasal MRSA PCR negative. Chest x-ray this morning improving right lower lobe airspace disease Plan: Antibiotics can be weaned to cefepime to complete a total of 7-day course from pulmonary standpoint Continue aspiration precautions Continue oxygen supplementation to maintain O2 saturation above 90%. Currently on 2 L, which is for chronic oxygen supplementation. Trelegy 100 inhaler along with DuoNebs 4 times daily as needed No need for noninvasive ventilatory therapy at this point of time Will continue to follow. # Thank you for involving pulmonary in this patient's care. Will continue to follow.
--- NOTE | 2025-08-18 09:56 | XR_ITS ---
FINAL REPORT CLINICAL HISTORY: PNM COMPARISON: 08/15/2025 FINDINGS: There is improvement in airspace disease in the right lower lung field since the prior exam of 08/15/2025. The left lung is clear. There is no evidence of effusion or pneumothorax. Mediastinum is unremarkable. Heart size is mildly enlarged. A left-sided internal jugular catheter is present with its tip in the superior vena cava. IMPRESSION: Improvement in the right sided airspace disease. The left lung remains clear. Reviewed, Interpreted and Dictated by Ankit Kelley MD Transcribed by Maris Nielson Authenticated and . [facility]
[2025-08-18] MEDS: SODIUM CHLORIDE 0.9% 10ML VIAL 10 ML IV (10:47)
[2025-08-18] MEDS: PANTOPRAZOLE 40MG VIAL 40 MG IV (10:47)
[2025-08-18] MEDS: FUROSEMIDE 40MG/4ML VIAL 40 MG IV (10:47)
--- NOTE | 2025-08-18 11:57 | EXP.DC.SUM ---
General Admission date:: 08/13/25 HPI HPI HPI: Mrs. Fernandez is a 75-year-old female inpatient in ICU secondary to hypotension/hypovolemia on pressors. [facility] with [facility] status. She also had low blood pressure and reduced oxygen saturation. The patient's initial hemoglobin was 4. According to notes, the patient has not had any hematochezia or bright red blood per rectum but has had some dark stools. The patient is a poor historian. The patient does not report any abdominal pain. The patient is on Plavix and oral iron. Her labs showed hemoglobin 4.1 and hematocrit 14.2 with MCV 100 (macrocytic indices). She is Hemoccult positive. Her serum iron on 02/2025 was 258 with iron saturation 84%. Patient was refusing aggressive measures yesterday and was sent home but returned. The patient does have a son who is the power of health care attorney and I have spoken with him. Hospital Course Hospital Course Hospital Course: Ambar Fernandez is a 75-year-old female who presented with altered mentation and was admitted for acute metabolic encephalopathy with UTI, hemorrhagic shock, acute on chronic anemia from suspected upper GI bleed. #Hypotension, resolved #Acute on chronic microcytic anemia #Possible upper GI bleed, resolved #Hyperkalemia, resolved #Epigastric/RUQ abdominal pain, resolved #History of cirrhosis ? Patient presented with altered mentation, weakness, elevated heart rate, hypoxia at nursing facility. ? Initial hemoglobin 4.1, MCV 100, with discordantly high BUN 104, potassium 7.1, with right upper quadrant/epigastric abdominal pain. FOBT positive for blood. ? Hemoglobin improved from 4.1 after 4 units PRBC transfusion. Required subsequent Lasix due to pulmonary edema. Weaned off Levophed on 08/14/2025. ? Hemoglobin continues to be stable, 8.8 today. No tachycardia, BUN and potassium improving. If there was an upper GI bleed, it seems to be resolved at this time. No hematochezia, melena. ? Patient does have a history of cirrhosis, could have been variceal bleed. GI evaluated, given that patient was just weaned off Levophed and encephalopathy which poses her at her higher risk for sedated procedure. Will hold off on EGD for now, especially as family has decided to pursue hospice care. ? Continue Protonix 40 mg nightly, treated with IV Protonix here. #Acute metabolic encephalopathy #Hyper uremia #Hypercapnic respiratory failure, compensated #Community-acquired pneumonia, pseudomonal ? Patient had been encephalopathic during most of initial hospital course, arousable but confused and somnolent. ? Initial CXR concerning for bibasilar opacities. VBG showing compensated hypercapnia. ? Encephalopathy significantly improved on 08/16/2025, likely from uremia improving. Still not able to have meaningful conversations, but expressing with 1-2 words and following commands. ? BUN continues to improve to 39 today, peaked at 102. ? Respiratory culture showing Pseudomonas growth. ? Treated with IV cefepime for pseudomonal pneumonia. Will transition to levofloxacin. ? Discharged with levofloxacin 750 mg daily for 5 more days. #Insomnia #Hospital-acquired delirium ? Started melatonin 5 mg, Zyprexa 5 mg nightly as patient is not sleeping well which is likely contributing to hospital-acquired delirium. ? Continue melatonin 5 mg as needed. 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 CTA abdomen/pelvis on 08/14/2025 revealed large 14 cm cystic right adnexal mass most consistent with ovarian neoplasm. ? Given this finding, and the fact the patient has expressed that she would not want any aggressive measures including biopsy son who is POA at bedside made the decision to pursue hospice care. Hospice care nurse consulted, has been accepted to hospice care. Discharged back to [facility] with hospice care. #HFpEF ? Was volume overloaded from fluid/blood resuscitation from shock. Improving with IV diuresis. ? Continue home torsemide. #Type 2 diabetes #Peripheral neuropathy ? Hemoglobin A1c 5.7% in May 2025. Discontinued home insulin as she did not require it here, and gabapentin due to encephalopathy. #COPD ? Able to tolerate inhaler, continue DuoNebs every 6 hours. #GERD ? Continue home PPI as above. #Anxiety/depression ? Continue home venlafaxine. Total time spent on discharge: 37 minutes on chart review, counseling, documentation, and direct care with patient. Exam Data for Last 24 hours Vital signs and Labs for Last 24 Hours: Temp Pulse Resp BP Pulse Ox O2 Del Method O2 Flow Rate 98.5 F 76 14 136/49 L 97 Nasal Cannula 3 08/18/25 07:54 08/18/25 07:54 08/18/25 07:54 08/18/25 07:54 08/18/25 07:54 08/18/25 07:54 08/18/25 07:54 FiO2 50 08/15/25 03:40 Laboratory Results - last 24 hr 08/18/25 05:45: WBC 5.1 D, RBC 2.76 L, Hgb 8.4 L, Hct 27.3 L, MCV 98.9, MCH 30.4, MCHC 30.8 L, RDW 18.4 H, Plt Count 76 L, MPV 10.6 H, Neut % (Auto) 62.9, Lymph % (Auto) 21.3, Blanco % (Auto) 12.1 H, Eos % (Auto) 2.9, Baso % (Auto) 0.2, Neut # (Auto) 3.2, Lymph # (Auto) 1.1, Blanco # (Auto) 0.6, Eos # (Auto) 0.2, Baso # (Auto) 0.0, Sodium 142, Potassium 3.4 L, Chloride 104, Carbon Dioxide 38 H, Anion Gap 3.4 L, BUN 39 H, Creatinine 1.00, Estimated Creat Clear 77, Estimated GFR 54 L, Est GFR ( Amer) 65, Glucose 117 H, Calcium 8.6, Total Bilirubin 0.6, AST 46 H, ALT 33, Alkaline Phosphatase 83, Total Protein 5.6 L, Albumin 2.5 L D, Globulin 3.1, Albumin/Globulin Ratio 0.8 L I & O for Last 24 hours: Intake & Output 08/15/25 08/16/25 08/17/25 08/18/25 23:59 23:59 23:59 23:59 Intake Total 580 / 580 1646.797 / 1656.797 230 / 230 100 / 100 Output Total 2575 / 2825 2750 / 2800 2100 / 2775 975 / 975 Balance -1994 / -2245 -1103.203 / -1143.203 -1870 / -2545 -875 / -875 Weight 106.2 kg 106.2 kg 101.8 kg Microbiology Reports for the Last 24 Hours: Microbiology 08/14/25 18:07 Sputum - Expectorated Sputum Gram Stain - Final 08/14/25 18:07 Sputum - Expectorated Sputum Sputum Culture - Final Pseudomonas aeruginosa 08/13/25 04:40 Blood Blood Culture - Final NO GROWTH AFTER 5 DAYS 08/13/25 04:40 Blood Blood Culture - Final NO GROWTH AFTER 5 DAYS Constitutional Constitutional: no acute distress and chronically ill appearing Comments: Encephalopathic, significantly improving *Routine HEENT Exam Head: Present normocephalic Eye: Present EOMI and PERRL ENT: Present mucous membranes moist *Routine Neck Exam Neck: Present supple; Absent lymphadenopathy *Routine Respiratory Exam Respiratory: Present CTA bilaterally *Routine Cardiovascular Exam Cardiovascular: Present RRR *Routine Abdominal Exam Abdominal: Present soft and normoactive bowel sounds; Absent tenderness *Routine Extremities Exam Extremities: Present edema; Absent cyanosis or clubbing *Routine Skin Exam Skin: Present warm; Absent rash *Routine Neurological Exam Neurological: Present alert Results Data Completed and Pending Labs on day of discharge: Labs from last 24 hours 08/18/25 05:45 WBC 5.1 D RBC 2.76 L Hgb 8.4 L Hct 27.3 L MCV 98.9 MCH 30.4 MCHC 30.8 L RDW 18.4 H Plt Count 76 L MPV 10.6 H Neut % (Auto) 62.9 Lymph % (Auto) 21.3 Blanco % (Auto) 12.1 H Eos % (Auto) 2.9 Baso % (Auto) 0.2 Neut # (Auto) 3.2 Lymph # (Auto) 1.1 Blanco # (Auto) 0.6 Eos # (Auto) 0.2 Baso # (Auto) 0.0 Sodium 142 Potassium 3.4 L Chloride 104 Carbon Dioxide 38 H Anion Gap 3.4 L BUN 39 H Creatinine 1.00 Estimated Creat Clear 77 Estimated GFR 54 L Est GFR ( Amer) 65 Glucose 117 H Calcium 8.6 Total Bilirubin 0.6 AST 46 H ALT 33 Alkaline Phosphatase 83 Total Protein 5.6 L Albumin 2.5 L D Globulin 3.1 Albumin/Globulin Ratio 0.8 L DS: Diagnosis Discharge Diagnosis (1) Pneumonia: Status: Acute Code(s): J18.9 - Pneumonia, unspecified organism Qualifiers: Laterality: bilateral Lung location: lower lobe of lung Pneumonia type: due to unspecified organism Qualified Code(s): J18.9 - Pneumonia, unspecified organism (2) Acute and chronic respiratory failure with hypoxia: Status: Acute Code(s): J96.21 - Acute and chronic respiratory failure with hypoxia Meds Home Medications and Allergies Home Medications ?Medication ?Instructions ?Recorded ?Confirmed ?Type oxybutynin chloride 10 mg 10 mg PO DAILY 11/01/22 08/13/25 History tablet,extended release 24 hr pantoprazole 40 mg tablet,delayed 40 mg PO DAILY 11/01/22 08/13/25 History release roflumilast 500 mcg tablet 500 mcg PO DAILY 11/01/22 08/13/25 History clopidogrel 75 mg tablet (Plavix) 75 mg PO DAILY 05/28/25 08/13/25 History ferrous sulfate 325 mg (65 mg 325 mg PO BID 05/28/25 08/13/25 History iron) tablet pramipexole 0.125 mg tablet 0.125 mg PO HS 05/28/25 08/13/25 History acetaminophen 500 mg tablet 500 mg PO Q8HP PRN Mild Pain 06/23/25 08/13/25 History (Scale Score 1-4) nitroglycerin 0.4 mg sublingual 0.4 mg sublingual Q5-15M PRN Chest 06/23/25 08/13/25 History tablet Pain sennosides 8.6 mg tablet (senna) 8.6 mg PO DAILY 06/23/25 08/13/25 History torsemide 100 mg tablet 50 mg PO DAILY 06/23/25 08/13/25 History venlafaxine 150 mg 150 mg PO DAILY 06/23/25 08/13/25 History capsule,extended release 24 hr ondansetron HCl 4 mg tablet 4 mg PO Q6HP PRN Nausea And 08/13/25 08/13/25 History Vomiting polyethylene glycol 3350 17 gram 17 g PO DAILY 08/13/25 08/13/25 History oral powder packet ipratropium 0.5 mg-albuterol 3 mg 3 ml inhalation Q6RT 30 days #90 mL 08/18/25 Rx (2.5 mg base)/3 mL nebulization soln levofloxacin 750 mg tablet 750 mg PO DAILY 4 days #4 tabs 08/18/25 Rx levofloxacin 750 mg tablet 750 mg PO DAILY 5 days #5 tabs 08/18/25 Rx lorazepam 0.5 mg tablet (Ativan) 0.5 mg PO Q6HP PRN anxiety #20 tabs 08/18/25 Rx melatonin 5 mg tablet 5 mg PO HS PRN insomnia 30 days 08/18/25 Rx #30 tabs New Prescriptions to Start Prescriptions: ipratropium-albuterol Alex,Kristian levofloxacin Alex,Kristian levofloxacin Alex,Kristian lorazepam [Ativan] Alex,Kristian melatonin Alex,Kristian Allergies Allergy/AdvReac Type Severity Reaction Status Date / Time acetaminophen (From Tylox) Allergy Verified 06/23/25 11:27 metformin Allergy Verified 06/23/25 11:27 Penicillins Allergy Verified 06/23/25 11:27 sitagliptin (From Januvia) Allergy Verified 06/23/25 11:27 oxycodone (From PERCOCET) AdvReac Unknown Verified 06/23/25 11:27 Discharge Plan Disposition Patient Disposition: Hospice - Medical Facility Condition: Fair Discharge Order Discharge Orders: Discharge Order (Routine); Ordered 08/18/25 Ordered By: Kristian Johnson Follow up Plan Prescriptions/Medication Reconciliation: New ipratropium-albuterol 0.5 mg-3 mg(2.5 mg base)/3 mL Solution For Nebulization 3 ml inhalation Q6RT 30 Days Qty: 90 0RF melatonin 5 mg Tablet 5 mg PO HS PRN (Reason: insomnia) 30 Days Qty: 30 0RF levofloxacin 750 mg tablet 750 mg PO DAILY 5 Days Qty: 5 0RF lorazepam [Ativan] 0.5 mg tablet 0.5 mg PO Q6HP PRN (Reason: anxiety) Qty: 20 0RF Continued sennosides [senna] 8.6 mg tablet 8.6 mg PO DAILY nitroglycerin 0.4 mg tablet, sublingual 0.4 mg sublingual Q5-15M PRN (Reason: Chest Pain) Rx Instructions: do not exceed 3 doses per episode venlafaxine 150 mg capsule,extended release 24hr 150 mg PO DAILY torsemide 100 mg tablet 50 mg PO DAILY ferrous sulfate 325 mg (65 mg iron) tablet 325 mg PO BID clopidogrel [Plavix] 75 mg tablet 75 mg PO DAILY pramipexole 0.125 mg tablet 0.125 mg PO HS acetaminophen 500 mg tablet 500 mg PO Q8HP PRN (Reason: Mild Pain (Scale Score 1-4)) oxybutynin chloride 10 mg tablet extended release 24hr 10 mg PO DAILY pantoprazole 40 mg tablet,delayed release (DR/EC) 40 mg PO DAILY roflumilast 500 mcg tablet 500 mcg PO DAILY polyethylene glycol 3350 17 gram Powder In Packet 17 g PO DAILY ondansetron HCl 4 mg tablet 4 mg PO Q6HP PRN (Reason: Nausea And Vomiting) levofloxacin 750 mg Tablet 750 mg PO DAILY 4 Days Qty: 4 0RF Discontinued Incruse Ellipta 62.5 mcg/actuation blister with device 1 inh inhalation DAILY gabapentin 300 mg capsule 300 mg PO TID Qty: 90 3RF trazodone 50 mg tablet 50 mg PO HS cholecalciferol (vitamin D3) 25 mcg (1,000 unit) capsule 25 mcg PO DAILY Qty: 30 0RF budesonide-formoterol [Symbicort] 160-4.5 mcg/actuation HFA aerosol inhaler 2 puff inhalation BID Qty: 10.2 2RF montelukast 10 mg tablet 10 mg PO HS insulin glargine [Lantus Solostar U-100 Insulin] 100 unit/mL (3 mL) insulin pen 22 unit SQ BID nadolol 20 mg tablet 20 mg PO BID Novolin 70-30 FlexPen U-100 100 unit/mL (70-30) insulin pen 24 unit SQ DAILY potassium chloride 20 mEq tablet,ER particles/crystals 20 meq PO DAILY insulin aspart U-100 [Novolog FlexPen U-100 Insulin] 100 unit/mL (3 mL) insulin pen 0 unit SQ DIRECTED Rx Instructions: PER SLIDING SCALE AT FACILITY cetirizine [Zyrtec] 10 mg tablet 10 mg PO DAILY azithromycin [Zithromax Z-Terry] 250 mg tablet 250 mg PO DAILY Problem Reconciliation Problems Reviewed?: Yes Patient Discharge Instructions Patient Instructions: Delirium, Gastrointestinal Bleeding, DI for Hypoxia, Catheter-Associated Urinary Tract Infection Print Language: Bengali Providers Primary Care Provider: Rafael Coto Admit Provider: Kristian Johnson Attending Provider: Kristian Johnson
[2025-08-18 16:00] VITALS: BP 145/63; PULSE 79; RESP 20; TEMP 36.8; O2SAT 95
== END 2025-08-18 18:55 | disposition hospice, inpatient (51) | DRG 871 ==
LOC: ER 05:03 → ICU 06:18 → 2ND 08-15 12:45
PROVIDERS: Internal Medicine Pulmonary Disease; Nurse Practitioner Family; Admitting Provider Student in an Organized Health Care Education/Training Program; Emergency Provider Emergency Medicine; PCP Family Medicine; Visit Provider Student in an Organized Health Care Education/Training Program
DX: R57.8 Other shock (principal); G93.41 Metabolic encephalopathy; J96.22 Acute and chronic respiratory failure with hypercapnia; I50.33 Acute on chronic diastolic (congestive) heart failure; J96.21 Acute and chronic respiratory failure with hypoxia; K27.4 Chronic or unspecified peptic ulcer, site unspecified, with hemorrhage; J15.1 Pneumonia due to Pseudomonas; D62 Acute posthemorrhagic anemia; J44.0 Chronic obstructive pulmonary disease with (acute) lower respiratory infection; N17.9 Acute kidney failure, unspecified; I13.0 Hypertensive heart and chronic kidney disease with heart failure and stage 1 through stage 4 chronic kidney disease, or unspecified chronic kidney disease; C56.9 Malignant neoplasm of unspecified ovary; F05 Delirium due to known physiological condition; Z99.81 Dependence on supplemental oxygen; I25.10 Atherosclerotic heart disease of native coronary artery without angina pectoris; F17.210 Nicotine dependence, cigarettes, uncomplicated; Z66 Do not resuscitate; E66.9 Obesity, unspecified; K21.9 Gastro-esophageal reflux disease without esophagitis; E55.9 Vitamin D deficiency, unspecified; N18.9 Chronic kidney disease, unspecified; D53.9 Nutritional anemia, unspecified; E11.42 Type 2 diabetes mellitus with diabetic polyneuropathy; E87.5 Hyperkalemia; E86.1 Hypovolemia; G47.33 Obstructive sleep apnea (adult) (pediatric); E11.22 Type 2 diabetes mellitus with diabetic chronic kidney disease; F32.A Depression, unspecified; K74.60 Unspecified cirrhosis of liver; F41.9 Anxiety disorder, unspecified; G47.00 Insomnia, unspecified; Z85.3 Personal history of malignant neoplasm of breast; Z79.82 Long term (current) use of aspirin; Z79.02 Long term (current) use of antithrombotics/antiplatelets; Z79.4 Long term (current) use of insulin; Z88.0 Allergy status to penicillin; Z88.8 Allergy status to other drugs, medicaments and biological substances; Z88.6 Allergy status to analgesic agent; Z90.13 Acquired absence of bilateral breasts and nipples; Z90.710 Acquired absence of both cervix and uterus; Z90.49 Acquired absence of other specified parts of digestive tract; Z85.828 Personal history of other malignant neoplasm of skin; Z51.5 Encounter for palliative care
CPT/HCPCS: 0223U; 36415; 36430; 36600; 51702; 70450; 71045; 71250; 74174; 80048; 80053; 81001; 82140; 82272; 82607; 82728; 82746; 82803; 82962; 83010; 83036; 83540; 83550; 83605; 83615; 83690; 83735; 83880; 84100; 84132; 84145; 84484; 84550; 84630; 85007; 85014; 85018; 85025; 85044; 85610; 86140; 86850; 87040; 87070; 87077; 87081; 87186; 87205; 87636; 89220; 93005; 93306; 94640; 94760; 94761; 97162; 97165; 97530; 99285; C1751; G0328; J0456; J0612; J0692; J0696; J1756; J1938; J2270; J2405; J2470; J3360; J3375; J7050; J7120; P9016; Q9967

== ENCOUNTER 2025-08-22 19:50 | Outpatient (CLI) | payer MEDICARE, MEDICAID, SELFPAY ==
--- OUTSIDE RECORDS SUMMARY | 2025-08-22 19:54 | XMS_ITS | Clinical Summary ---
[facility] Address [address] [place] [address] Care Team Providers Care Crm Technical Lead Name Role Phone Provider, No Known Primary [...] (1 - 2023- season) 2025 Insurance MEDICAID [place] [id number] Care Teams Crm Technical Lead Relationship Specialty Start Date End Date Provider, No Known [facility] [place] [address] PCP - General 12/10/15
--- OUTSIDE RECORDS SUMMARY | 2025-08-22 19:54 | XMS_ITS | Clinical Summary ---
Author Organization Healthcare Address [address] [place] [address] Care Team Providers Care Electric Motor Analyst Name Role Phone Tonya Freeman APRN Primary Care Provider + [phone] Social History Tobacco Use Types Packs/Day Years Used Date Smoking Tobacco: Never Assessed Comments Unknown Sex and Gender Information Value Date Recorded Sex Assigned at Not on file Legal Sex Female 7:29 PM EDT Gender Identity Not on file Sexual Orientation Not on file Plan of Treatment Not on file Care Teams Electric Motor Analyst Relationship Specialty Start Date End Date Tonya Freeman APRN [address] [place] [address] PCP - General 02/19/21
--- OUTSIDE RECORDS SUMMARY | 2025-08-22 19:54 | XMS_ITS | Data Portability ---
Author Organization [facility] Address [address] [place] [address] Assessment No assessment recorded. Plan of Treatment [...] 2021 [facility], [address] [place], [address], 14:25:47 Patient TargetsNo targets recorded. Patient InstructionsNo instructions recorded. Reason for Referral None Reported. Results Created Date Observation Date Name Description Value Unit Range Abnormal Flag Note LastModifiedBy Organization Detail LastModifiedTime 09/09/20 22 04/03/2021 CULTU RE, URINE , ROUTI NE culture, urine, routine SEE NOTE abnormal CULTU RE, URINE , ROUTI NE Micro Numbe r: [id number] Test Statu s: Final Speci men [...] CLIEN T SERVI JUDSON. PHONE ROLDAN R: 862.6 97.83 78 Not Available [facility] [place], [id number] 09/09/2022 11:03:00 09/09/20 22 04/03/2021 URINA LYSIS REFLE X color TNP normal TEST NOT PERFO RMED Impro per speci men submi tted. If indic ated, pleas e re-rdz bmit in a [facility] sheila yello w-top urine tube. Not Available [facility] JODRAN Wood, 09/09/2022 11:02:58 09/09/20 22 04/14/2022 CLIEN [...] NUMBE R: 866.6 97.83 78 Not Available [facility] JORDAN Wood, 09/09/2022 10:47:00 09/09/20 22 04/14/2022 CBC (INCL UDES DIFF/ PLT) white blood cell count 8.1 thous and/u L 3.8-10 .8 normal Not Available [facility] A[place]on, JORDAN, 09/09/2022 10:46:58 09/09/20 22 04/14/2022 CBC (INCL UDES DIFF/ PLT) red blood cell count 4.03 kalpesh on/uL 3.80-5 .10 normal Not Available [facility] [place], JORDAN, 09/09/2022 10:46:58 09/09/20 22 04/14/2022 CBC (INCL UDES DIFF/ PLT) hemoglobin 11.3 g/dL 11.7-1 5.5 low Not Available [facility] [place], JORDAN, 09/09/2022 10:46:58 09/09/20 22 04/14/2022 CBC (INCL UDES DIFF/ PLT) hematocrit 34.5 % 35.0-4 5.0 low Not Available [facility] [place], [id number] 09/09/2022 10:46:58 09/09/20 22 04/14/2022 CBC (INCL UDES DIFF/ PLT) MCV 85.6 fL 80.0-1 00.0 normal Not Available [facility] JORDAN Wood, 09/09/2022 10:46:58 09/09/20 22 04/14/2022 CBC (INCL UDES DIFF/ PLT) MCH 28.0 pg 27.0-3 3.0 normal Not Available [facility] [place], [id number] 09/09/2022 10:46:58 09/09/20 22 04/14/2022 CBC (INCL UDES DIFF/ PLT) MCHC 32.8 g/dL 32.0-3 6.0 normal Not Available [facility] J[facility]AN Wood, 09/09/2022 10:46:58 09/09/20 22 04/14/2022 CBC (INCL UDES DIFF/ PLT) RDW 14.3 % 11.0-1 5.0 normal Not Available [facility] JORDAN Wood, 09/09/2022 10:46:58 09/09/2004/14/2022 CBC (INCL UDES DIFF/ PLT) platelet count 185 thous and/u L 140-40 0 normal Not Available [facility] [place], [id number] 09/09/2022 10:46:58 09/09/20 22 04/14/2022 CBC (INCL UDES DIFF/ PLT) MPV 11.0 fL 7.5-12 .5 normal Not Available [facility] JORDAN Wood, 09/09/2022 10:46:58 09/09/20 22 04/14/2022 CBC (INCL UDES DIFF/ PLT) absolute neutrophils 4884 cells /uL 1500-7 800 normal Not Available [facility] JORDAN Wood, 09/09/2022 10:46:58 09/09/20 22 04/14/2022 CBC (INCL UDES DIFF/ PLT) absolute lymphocytes 2398 cells /uL 850-39 00 normal Not Available [facility] [place], [id number] 09/09/2022 10:46:58 09/09/20 22 04/14/2022 CBC (INCL UDES DIFF/ PLT) absolute monocytes 721 cells /uL 200-95 0 normal Not Available [facility] [place], [id number] 09/09/2022 10:46:58 09/09/20 22 04/14/2022 CBC (INCL UDES DIFF/ PLT) absolute eosinophils 81 cells /uL 15-500 normal Not Available [facility] [place], [address] 09/09/2022 10:46:58 09/09/20 22 04/14/2022 CBC (INCL UDES DIFF/ PLT) absolute basophils 16 cells /uL 0-200 normal Not Available [facility] [place], [address] 09/09/2022 10:46:58 09/09/20 22 04/14/2022 CBC (INCL UDES DIFF/ PLT) neutrophils 60.3 % normal Not Available [facility] [place], [id number] 09/09/2022 10:46:58 09/09/20 22 04/14/2022 CBC (INCL UDES DIFF/ PLT) lymphocytes 29.6 % normal Not Available [facility] JORDAN Wood, [id number] 09/09/2022 10:46:58 09/09/20 22 04/14/2022 CBC (INCL UDES DIFF/ PLT) monocytes 8.9 % normal Not Available [facility] [place], [id number] 09/09/2022 10:46:58 09/09/20 22 04/14/2022 CBC (INCL UDES DIFF/ PLT) eosinophils 1.0 % normal Not Available [facility] [place], [address] 09/09/2022 10:46:58 09/09/20 22 04/14/2022 CBC (INCL UDES DIFF/ PLT) basophils 0.2 % normal Not Available [facility] [place], [id number] 09/09/2022 10:46:58 09/09/20 22 04/14/2022 COMPR EHENS ANALI METAB OLIC PANEL glucose 119 mg/dL 65-99 high Fasti ng refer ence inter jensen For someo ne witho ut known diabe gregorio, a gluco se value betwe en 100 and 125 mg/dL is consi stent with predi abete s and shoul d be confi rmed with a follo w-up test. Not Available [employer] [facility] J[place]AN Wood, [id number] 09/09/2022 10:46:56 09/09/20 22 04/14/2022 COMPR EHENS ANALI METAB OLIC PANEL urea nitrogen (BUN) 25 mg/dL 7-25 normal Not Available [employer] [facility] [place], [address] 09/09/2022 10:46:56 09/09/20 22 04/14/2022 COMPR EHENS ANALI METAB OLIC PANEL creatinine 1.86 mg/dL 0.60-0 .93 high For patie nts >49 years of age, the refer ence limit for Creat inine is appro ximat octavio 13% highe r for peopl e ident ified as Afric an-Am rohini n. Not Available [employer] [facility] J[place], [address] 09/09/2022 10:46:56 09/09/20 22 04/14/2022 COMPR EHENS ANALI METAB OLIC PANEL eGFR non-afr. [place] citizen 26 mL/mi n/1.7 3m2 > or = 60 low Not Available [facility] J[place], [address] 09/09/2022 10:46:56 09/09/20 22 04/14/2022 COMPR EHENS ANALI METAB OLIC PANEL eGFR 31 mL/mi n/1.7 3m2 > or = 60 low Not Available [facility] [place], [address] 09/09/2022 10:46:56 09/09/20 22 04/14/2022 COMPR EHENS ANALI METAB OLIC PANEL BUN/creatini ne ratio 13 (calc ) 6-22 normal Not Available [facility] J[place], [address] 09/09/2022 10:46:56 09/09/20 22 04/14/2022 COMPR EHENS ANALI METAB OLIC PANEL sodium 131 mmol/ L 135-14 6 low Not Available [facility] J[place], [address] 09/09/2022 10:46:56 09/09/20 22 04/14/2022 COMPR EHENS ANALI METAB OLIC PANEL potassium 4.7 mmol/ L 3.5-5. 3 normal Not Available [facility] J[place], [address] 09/09/2022 10:46:56 09/09/20 22 04/14/2022 COMPR EHENS ANALI METAB OLIC PANEL chloride 94 mmol/ L 98-110 low Not Available [facility] JORDAN Wood, [address] 09/09/2022 10:46:56 09/09/20 22 04/14/2022 COMPR EHENS ANALI METAB OLIC PANEL carbon dioxide 30 mmol/ L 20-32 normal Not Available [facility] JORDAN Wood, [address] 09/09/2022 10:46:56 09/09/20 22 04/14/2022 COMPR EHENS ANALI METAB OLIC PANEL calcium 9.4 mg/dL 8.6-10 .4 normal Not Available [facility] [place], [address] 09/09/2022 10:46:56 09/09/20 22 04/14/2022 COMPR EHENS ANALI METAB OLIC PANEL protein, total 6.6 g/dL 6.1-8. 1 normal Not Available [facility] [place], [address] 09/09/2022 10:46:56 09/09/20 22 04/14/2022 COMPR EHENS ANALI METAB OLIC PANEL albumin 3.7 g/dL 3.6-5. 1 normal Not Available [facility] [place], [address] 09/09/2022 10:46:56 09/09/20 22 04/14/2022 COMPR EHENS ANALI METAB OLIC PANEL globulin 2.9 g/dL_ (calc ) 1.9-3. 7 normal Not Available [facility] [place], [address] 09/09/2022 10:46:56 09/09/20 22 04/14/2022 COMPR EHENS ANALI METAB OLIC PANEL albumin/glob ulin ratio 1.3 (calc ) 1.0-2. 5 normal Not Available [facility] J[place], [address] 09/09/2022 10:46:56 09/09/20 22 04/14/2022 COMPR EHENS ANALI METAB OLIC PANEL bilirubin, total 0.5 mg/dL 0.2-1. 2 normal Not Available [facility] J[place], [address] 09/09/2022 10:46:56 09/09/20 22 04/14/2022 COMPR EHENS ANALI METAB OLIC PANEL alkaline phosphatase 152 U/L 37-153 normal Not Available [facility] JORDAN [place], [address] 09/09/2022 10:46:56 09/09/20 22 04/14/2022 COMPR EHENS ANALI METAB OLIC PANEL AST 13 U/L 10-35 normal Not Available [facility] JORDAN Wood, [address] 09/09/2022 10:46:56 09/09/20 22 04/14/2022 COMPR EHENS ANALI METAB OLIC PANEL ALT 8 U/L 6-29 normal Not Available [facility] J[place], [address] 09/09/2022 10:46:56 Result Notes None recorded. Problems Name Problem SNOMED Code Status Onset Date Resolution Date Notes Provider Name and Address Organization Details Recorded Time Secondar y diabetes mellitus 7730473 Active 2018 Problem Code: E08.41; Problem Code Type: ICD-10; Not Available [facility] 22:07:40 Mixed hyperlip idemia 199612269 Active 2018 Problem Code: E78.2; Problem Code Type: ICD-10; Not Available [facility] 22:07:40 Mild recurren t major depressi on 31220661 Active 2018 Problem Code: F33.0; Problem Code Type: ICD-10; Not Available [facility] 22:07:41 Hyperten sive disorder 14286610 Active 2018 Problem Code: I10; Problem Code Type: ICD-10; Not Available [facility] 22:07:41 Acute exacerba tion of chronic obstruct anali pulmonar y disease 277576739 Active 2018 Problem Code: J44.1; Problem Code Type: ICD-10; Not Available [facility] 2 22:07:42 Cirrhosi s of liver 60217382 Completed 201804/06/2021 Problem Code: K74.60; Problem Code Type: ICD-10; Not Available [facility] 2 22:07:42 Cyst of ovary 92536516 Completed 201808/11/2019 Problem Code: N83.201; Problem Code Type: ICD-10; Not Available [facility] 2 22:07:44 Chest pain 27902557 Completed 201808/11/2019 Problem Code: R07.89; Problem Code Type: ICD-10; Not Available [facility] 2 22:07:45 Pain in right knee Completed 201808/11/2019 Problem Code: M25.561; Problem Code Type: ICD-10; Not Available [facility] 2 22:07:43 Low back pain 372319379 Active 2018 Problem Code: M54.5; Problem Code Type: ICD-10; Not Available [facility] 2 22:07:43 Gastroes ophageal reflux disease without esophagi tis 639547960 Active 2018 Not Available [facility] 2 22:07:51 Pain in right knee Completed 201808/11/2019 Problem Code: M25.561; Problem Code Type: ICD-10; Not Available [facility] 2 22:07:43 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 400497409 Active 2018 Problem Code: E11.41; Problem Code Type: ICD-10; Not Available [facility] 2 22:07:40 Acute bronchit is 43679258 Completed 201808/11/2019 Problem Code: J20.9; Problem Code Type: ICD-10; Not Available [facility] 2 22:07:41 Cough 64495470 Completed 201808/11/2019 Problem Code: R05; Problem Code Type: ICD-10; Not Available [facility] 2 22:07:45 Body mass index 40+ - severely obese 858160851 Active 2018 Not Available [facility] 2 22:07:51 Current drug user 366101751 Completed 201808/11/2019 Problem Code: Z79.899; Problem Code Type: ICD-10; Not Available [facility] 2 22:07:53 Divertic ulitis of large intestin e without complica tion 659712182 Active 2018 Problem Code: K57.32; Problem Code Type: ICD-10; Not Available [facility] 2 22:07:42 Dysuria 57971146 Completed 201801/05/2021 Problem Code: R30.0; Problem Code Type: ICD-10; Not Available [facility] 2 22:07:46 Dysuria 89690580 Completed 201801/05/2021 Problem Code: R30.0; Problem Code Type: ICD-10; Not Available [facility] 2 22:07:46 Dehydrat ion 22827867 Active 2019 Problem Code: E86.0; Problem Code Type: ICD-10; Not Available [facility] 2 22:07:40 Bronchop neumonia 140464779 Active 2019 Problem Code: J18.0; Problem Code Type: ICD-10; Not Available [facility] 2 22:07:41 Pyrexia of unknown origin 1882348 Completed 201901/05/2021 Problem Code: R50.9; Problem Code Type: ICD-10; Not Available [facility] 2 22:07:46 Hypomagn esemia 847652268 Completed 201901/05/2021 Problem Code: E83.42; Problem Code Type: ICD-10; Not Available [facility] 2 22:07:40 Tobacco dependen ce caused by cigarett es 43566171039 166106 Active 2019 Problem Code: F17.210; Problem Code Type: ICD-10; Not Available [facility] 2 22:07:40 Chronic obstruct anali pulmonar y disease with acute lower respirat ory infectio n 062604049 Active 2019 Problem Code: J44.0; Problem Code Type: ICD-10; Not Available [facility] 2 22:07:42 Asthenia 09531036 Active 2019 Problem Code: R53.1; Problem Code Type: ICD-10; Not Available [facility] 2 22:07:46 Fall on same level from slipping , tripping or stumblin g Active 2019 Not Available [facility] 2 22:07:48 Abnormal finding on evaluati on procedur e 549239595 Active 2019 Not Available [facility] 2 22:07:49 Chronic obstruct anali pulmonar y disease 31784717 Active 2019 Problem Code: J44.9; Problem Code Type: ICD-10; Not Available [facility] 2 22:07:42 Periodon kevin disease 8106398 Completed 201904/06/2021 Problem Code: K05.6; Problem Code Type: ICD-10; Not Available [facility] 2 22:07:42 Cataract 227723066 Active 2019 Not Available [facility] 2 22:07:41 Generali zed osteoart hritis 124980359 Active 2019 Problem Code: M15.9; Problem Code Type: ICD-10; Not Available [facility] 2 22:07:43 On examinat ion - gait Active 2019 Not Available [facility] 2 22:07:45 Foot joint - soft tissue swelling 321970547 Completed 201901/05/2021 Not Available [facility] 2 22:07:43 Ankle joint effusion 895996233 Active 2019 Not Available [facility] 2 22:07:43 Polyalgi a 314276961 Completed 201901/05/2021 Problem Code: M79.89; Problem Code Type: ICD-10; Not Available [facility] 2 22:07:44 Localize d edema 961672240 Completed 201901/05/2021 Problem Code: R60.0; Problem Code Type: ICD-10; Not Available [facility] 22:07:47 Dysuria 17045717 Active 2019 Problem Code: R30.0; Problem Code Type: ICD-10; Not Available [facility] 22:07:46 Influenz a vaccine needed 32780365209 Active 2019 Problem Code: Z23; Problem Code Type: ICD-10; Not Available [facility] 22:07:49 Obstruct anali sleep apnea syndrome 04443248 Active 2019 Problem Code: G47.33; Problem Code Type: ICD-10; Not Available [facility] 22:07:41 Pyrexia of unknown origin 8279484 Active 2019 Problem Code: R50.9; Problem Code Type: ICD-10; Not Available [facility] 22:07:46 Chronic obstruct anali pulmonar y disease with acute lower respirat ory infectio n 361643557 Completed 201901/05/2021 Problem Code: J44.0; Problem Code Type: ICD-10; Not Available [facility] 22:07:51 Urinary tract infectio us disease 86495820 Active 2020 Problem Code: N39.0; Problem Code Type: ICD-10; Not Available [facility] 22:07:54 Vitamin D deficien cy 39071212 Active 2020 Problem Code: E55.9; Problem Code Type: ICD-10; Not Available [facility] 2 22:07:40 Current drug user 067047241 Active 2020 Problem Code: Z79.899; Problem Code Type: ICD-10; Not Available [facility] 22:07:52 Polyalgi a 628731727 Active 2020 Problem Code: M79.89; Problem Code Type: ICD-10; Not Available [facility] 2 22:07:44 Eruption 914743895 Active 2020 Problem Code: R21; Problem Code Type: ICD-10; Not Available [facility] 22:07:45 Localize d edema 878603374 Active 2020 Problem Code: R60.0; Problem Code Type: ICD-10; Not Available [facility] 22:07:47 COVID-19 380558661 Active 2020 Problem Code: U07.1; Problem Code Type: ICD-10; Not Available [facility] 22:07:48 Influenz a vaccine needed 27003775942 06 Completed 202002/01/2022 Problem Code: Z23; Problem Code Type: ICD-10; Not Available [facility] 22:07:50 Neoplasm of uncertai n behavior of skin 82079641 Active 2021 Problem Code: D48.5; Problem Code Type: ICD-10; Not Available [facility] 22:07:40 Ganglion of wrist 480758663 Active 2021 Problem Code: M67.432; Problem Code Type: ICD-10; Not Available [facility] 22:07:44 Snoring 29268648 Active 2021 Problem Code: R06.83; Problem Code Type: ICD-10; Not Available [facility] 22:07:55 General examinat ion of patient Active 2021 Not Available [facility] 22:07:48 Fall from chair Active 2021 Problem Code: W07.XXXA ; Problem Code Type: ICD-10; Not Available [facility] 22:07:57 Low blood pressure 62719298 Active 2021 Problem Code: I95.9; Problem Code Type: ICD-10; Not Available [facility] 22:07:41 Chronic kidney disease stage 3B 679025954 Active 2021 Problem Code: N18.32; Problem Code Type: ICD-10; Not Available [facility] 22:07:54 Notes:*Problem Name: Patient 's other noncompliance [...] 12/04/19 19 hernia repair completed Not Available [facility] 2021 22:56:15 12/04/19 19 hysterectomy completed Not Available [facility] 022 22:56:15 12/04/19 19 ligation of bilateral fallopian tubes completed Not Available [facility] 06/14/2022 22:56:15 Imaging Results None recorded. Procedure Notes None recorded. Medical Equipment None Reported. Allergies Allergen ID Allergen Name Allergen Category Reaction Reaction Severity Criticality Documentation Date Start Date Code Code System Note Provider Name and Address Organization Details Recorded Time 80060 Product containin g penicilli n (product) medicatio n Not available Not available Not available 06/14/2022 17144 8001 SNOMED Regina stoddard [facility] [employer] 3 10:02:07 73349 Tylox medicatio n Not available Not available Not available 06/14/2022 59651 5 RxNorm Not Available [facility] 2 22:56:11 08872 walnut allergeni c extract food Not available Not available Not available 06/14/2022 63341 0 RxNorm Not Available [facility] 2 22:56:11 63577 acetamino phen / oxycodone medicatio n Not available Not available Not available 06/14/2022 79224 3 RxNorm Not Available [facility] 2 22:56:11 33738 Januvia medicatio n Not available Not available Not available 06/14/2022 10914 6 RxNorm Not Available [facility] 2 22:56:11 90272 oxycodone medicatio n Not available Not available Not available 06/14/2022 7804 RxNorm Not Available [facility] 2 22:56:12 Medications Name Sig Start Date [...] Address Organization Details Last Updated DateTime 2 405042. 94 g 97 % 97 % 74 /min 116/63 mm[Hg] TILA ESPOSITO [employer] 2 14:01:06 Social History Question Answer Notes LastModified by Organizat [employer] Details LastModified Time Tobacco Smoking Status Current Every Day Smoker Regina William stoddard [place]. 11/22/2022 10:02:43 What Is Your Current Pack Years? 30ormorepacky ears Information not available 07/19/2022 How Much Tobacco Do You Smoke? 2 PPD Information not available 07/19/2022 Sex: Female Functional Status Question Answer Note LastModified by Organizat ion Details LastModified Time Do you use any illicit or recreational drugs? No [email or web address] Information not available 07/19/2022 Mental Status None [...] Diabetes Y Obesity Y Breast Cancer Y COPD Y Hypertension Y Kidney Disease Y Gynecological HistoryNo gynecological history recorded. Obstetrics History GPAL:G 0 P 0 0 0 0 Immunizations Vaccine Type Date Status Note Provider Nam e and Address Organization Details Recorded Time COVID-19 vaccine, vector-nr, rS-ChAdOx1, PF, 0.5 mL 1 completed Not Available [facility] 06/14/2022 23:39:31 Influenza, split virus, quadrivalent, PF 1 completed Not Available [facility] 06/14/2022 23:39:31 Influenza, split virus, trivalent, preservative 9 completed Not Available [facility] 06/14/2022 23:39:31 Influenza, split virus, quadrivalent, preservative 0 completed Not Available [facility] 06/14/2022 23:39:31 Past Encounters Encounter ID Performer Location Encounter Start Date Encounter Closed Date Diagnosis/Indication Diagnosis SNOMED-CT Code Diagnosis ICD10 Code Diagnosis IMO Codes Diagnosis Note [id number] Anya Munson APRN [place] [id number] 07/19/2022 13:38:04 07/19/2022 15:12:20 Pain of right hip joint [id number] 94929 M25.551 Pain of le ft hip joint 5469717895 98266 M25.552 rest, alternate Heat/ICE, f/u if worsen, will call with xray results Pain of le ft knee joint 4887530668 70308 M25.562 Health Concerns Section Related Observation LastModified by Organization Detai ls LastModified Time None Recorded Concern Status LastModified by Organization Details LastModified Time None Recorded Advance Directives Directive None Recorded Payers Insurance Date Sequence Insurance Name Policy Number Policy Osborne Covered Member ID Osborne Member ID Guarantor Name 07/30/2022 1 [employer] (MEDICARE REPLACEMENT/A DVANTAGE - PPO) Ambar C Fernandez [id number] Ambar Fernandez 11/19/2022 [place] [employer] - [facility] Ambar C Fernandez [id number] Ambar Fernandez 08/07/2022 2 MEDICAID-[facility] - FFS/[place] Ambar Fernandez [id number] Ambar Fernandez Notes Date Note Type Note [...] in the HPI Anya Munson APRN [address] [place], [address], [facility] [employer] 07/19/2022 14:33:54 OBGyn Episode No OBEpisode recorded.
--- OUTSIDE RECORDS SUMMARY | 2025-08-22 19:54 | XMS_ITS | Referral Summary ---
Author Organization [employer] ([place], [place], [place], [place], [place]) Address [address] [place] [address] Care Team Providers Care Plate Cutter Name Role Phone Unavailable Primary Care Provider [...] (02/01/2023): Added automatically from request for surgery [id number] Social History Tobacco Use Types Packs/Day Years [...] Date Garcia rded Speak language other than Indonesian at home Not on file 10/27/2023 Want [...] A1C 8.0 % 02/02/2023 11:14 AM EDT [facility] Comment: Hemoglobin A1C levels are related to mean glucose during the preceding 2-3 months. Less than 7% demonstrates glycemic control in diabetic patients. Hemoglobin AlC % Suggested Diagnosis > or = 6.5 Diabetic 5.7 - 6.4 Prediabetic <5.7 Non-diabetic eAVG Glucose 182.9 mg/dL 02/02/2023 11:14 AM EDT [facility] Blood Venipuncture / Unknown 02/02/2023 3:00 AM EDT 02/02/2023 3:05 AM EDT Marylou Werner MD LAB BLOOD ORDERABLES Final R esult [facility] [address] [phone] from Last 3 Months or Most Recently Relevant to Health Maintenance Insurance MEDICAID OF [place] [address] [place], [place] [id number] Advance Directives For more information, please contact: [phone] Documents on File Type Date Recorded 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 May use BiPAP/CPAP Call BLANKET CUTTER HAND * Full Code Date Activated Date Inactivated Comments 01/31/2023 8:28 PM 01/31/2023 9:46 PM Healthcare Agents on File Name Relationship Healthcare Agent Relationshi p Communication Rafael Fernandez Son First Alternate Healthcare Decision-Maker Cony Rebecca [id number] Second Alternate Healthcare Decision-Maker
--- OUTSIDE RECORDS SUMMARY | 2025-08-22 19:54 | XMS_ITS | Clinical Summary ---
Author Organization [employer] ([place], [place], [place], [place], [place]) Address [address] [place] [address] Care Team Providers Care Inside Upholsterer Name Role Phone Unavailable Primary Care Provider [...] (02/01/2023): Added automatically from request for surgery [id number] Social History Tobacco Use Types Packs/Day Years [...] Date Garcia rded Speak language other than Nepali at home Not on file 10/27/2023 Want [...] A1C 8.0 % 02/02/2023 11:14 AM EDT [facility] Comment: Hemoglobin A1C levels are related to mean glucose during the preceding 2-3 months. Less than 7% demonstrates glycemic control in diabetic patients. Hemoglobin AlC % Suggested Diagnosis > or = 6.5 Diabetic 5.7 - 6.4 Prediabetic <5.7 Non-diabetic eAVG Glucose 182.9 mg/dL 02/02/2023 11:14 AM EDT [facility] Blood Venipuncture / Unknown 02/02/2023 3:00 AM EDT 02/02/2023 3:05 AM EDT Marylou Werner MD LAB BLOOD ORDERABLES Final R esult [facility] [address] [phone] from Last 3 Months or Most Recently Relevant to Health Maintenance Insurance HUMAN MEDICARE PPO MEDICAID OF [place] Advance Directives For more information, please contact: [phone] Documents on File Type Date Recorded Patient Visiting Teacher Expl anation Power of Parcel Post Truck Driver 01/31/2023 * DNR - Limited Additional Intervention (Latest Code Status on File) Date Activated Date Inactivated Comments 01/31/2023 9:46 PM 02/06/2023 5:29 PM If no pulse: NO intervention If has pulse: NO Intubation. May use BiPAP/CPAP Call COMPUTER NUMERIC CONTROL SETTER * Full Code Date Activated Date Inactivated Comments 01/31/2023 8:28 PM 01/31/2023 9:46 PM Healthcare Agents on File Name Relationship Healthcare Agent Relationshi p Communication Rafael Fernandez Son First Alternate Healthcare Decision-Maker Cony Rebecca [id number] Second Alternate Healthcare Decision-Maker
[2025-08-25 11:29] LABS: C. difficile PCR (HMH) Negative (Negative)
== END 2025-08-22 23:59 | disposition home or self-care (01) ==
LOC: LAB.DROPOF 19:51
PROVIDERS: PCP Family Medicine; Visit Provider Family Medicine
DX: R19.7 Diarrhea, unspecified (principal)
CPT/HCPCS: 87493

== ENCOUNTER 2025-08-28 16:41 | Outpatient (CLI) | payer MEDICARE, MEDICAID, SELFPAY ==
[2025-08-28 16:45] LABS: Microscopic, Urine URINE MICROSCOPIC (MICROSCOPIC)
[2025-08-28 17:16] LABS: Bilirubin,Urine Negative (Negative); Color,Urine YELLOW (Yellow); Glucose,Urine (UA) Negative (Negative); Ketones,Urine Negative (Negative); Leukocyte Esterase,Urine TRACE (Negative); PH,Urine 6.0 (5.0-8.5); Protein,Urine Negative (Negative); Specific Gravity, Urine 1.010 (1.005-1.030); Urobilinogen,Urine 0.2 EU/dl (0.2)
--- OUTSIDE RECORDS SUMMARY | 2025-08-28 17:30 | XMS_ITS | Clinical Summary ---
Author Organization Healthcare Address [address] [place] [address] Care Team Providers Care Sheet Metal Technician Name Role Phone Tonya Freeman APRN Primary Care Provider + [phone] Social History Tobacco Use Types Packs/Day Years Used Date Smoking Tobacco: Never Assessed Comments Unknown Sex and Gender Information Value Date Recorded Sex Assigned at Not on file Legal Sex Female 7:29 PM EDT Gender Identity Not on file Sexual Orientation Not on file Plan of Treatment Not on file Care Teams Sheet Metal Technician Relationship Specialty Start Date End Date Tonya Freeman APRN [address] [place] [address] PCP - General 02/19/21
--- OUTSIDE RECORDS SUMMARY | 2025-08-28 17:30 | XMS_ITS | Clinical Summary ---
Author Organization [facility] Address [address] [place] [address] Phone Care Team Providers Care Natural Resources Professor Name Role Phone Marylou Werner MD [ ] Conditions or Problems Problem Name Problem Code Onset Date Status Entry Date Provider Comment Standard Description Annotate GERD 440900224 (SNOMED CT) 12/09 Active 12/09 Joshua Schmid MD Gastroesophageal reflux disease Tobacco abuse 23510216 (SNOMED CT) 12/09 Active 12/09 Joshua Schmid MD Tobacco dependence syndrome Diarrhea 55100662 (SNOMED CT) 12/08 Active 12/08 Chantell White Diarrhea Diabetes mellitus type II 21293183 (SNOMED CT) 12/08 Active 12/08 Chantell White Type 2 diabetes mellitus Acute pulmonary blastomycosis 982300545 (SNOMED CT) 12/08 Active 12/08 Chantell White Acute pulmonary blastomycosis Chronic pulmonary blastomycosis 998600606 (SNOMED CT) 12/08 Active 12/08 Chantell White Chronic pulmonary blastomycosis Medications Medication Instructions Start Date Stop Date Generic Name NDC Provider GLIPIZIDE 10 MG TABS take twice daily 05/09 GLIPIZIDE 05277807812 Joshua Schmid MD ITRACONAZOLE 100 MG CAPS Take two by mouth twice daily. 8 ITRACONAZOLE 30161376650 Joshua Schmid MD ITRACONAZOLE 100 MG CAPS take 2 po bid ITRACONAZOLE 83682430650 Joshua Schmid MD ITRACONAZOLE 100 MG CAPS Take two by mouth twice daily. 0/10 ITRACONAZOLE 12691872151 Joshua Schmid MD LEVOTHYROXINE SODIUM 50 MCG TABS daily 12/22 LEVOTHYROXINE SODIUM 07917905191 Tanisha L GNP OMEPRAZOLE 20 MG TBEC twice daily 12/22 OMEPRAZOLE 24867631968 Tanisha L SYMBICORT 80-4.5 MCG/ACT AERO 2 puffs twice daily BUDESONIDE-FORMO TEROL FUMARATE 99212334276 Marylou Martinez RN SPIRIVA HANDIHALER 18 MCG CAPS daily TIOTROPIUM BROMIDE MONOHYDRATE 49340658753 Marylou Martinez RN SINGULAIR 10 MG TABS daily MONTELUKAST SODIUM 88895392703 Marylou Martinez RN FLONASE ALLERGY RELIEF 50 MCG/ACT SUSP daily FLUTICASONE PROPIONATE 12838031606 Marylou Martinez RN DALIRESP 500 MCG TABS daily ROFLUMILAST 71202412668 Marylou Martinez RN DUTOPROL 25-12.5 MG ORAL TABLET EXTENDED RELEASE 24 HOUR daily METOPROLOL-HYDRO CHLOROTHIAZIDE 73478197641 Marylou Martinez RN REQUIP 4 MG ORAL TABLET 4 mg daily ROPINIROLE HCL 53868694523 Marylou Martinez RN KLOR-CON 10 10 MEQ CR-TABS twice daily POTASSIUM CHLORIDE 67931745266 Marylou Martinez RN GNP OMEPRAZOLE 20 MG TBEC twice daily 12/22 OMEPRAZOLE 11367283749 Marylou Martinez RN METOCLOPRAMIDE HCL 5 MG TABS one tab three times daily METOCLOPRAMIDE HCL 52376866947 Marylou Martinez RN PIOGLITAZONE HCL-METFORMIN HCL 15-850 MG TABS twice daily PIOGLITAZONE HCL-METFORMIN HCL 11595277623 Marylou Martinez RN MOBIC 15 MG ORAL TABLET daily MELOXICAM 07852092031 Marylou Martinez RN LISINOPRIL 20 MG TABS daily LISINOPRIL 01821307280 Marylou Martinez RN LEVOTHYROXINE SODIUM 50 MCG TABS daily 0 12/22 LEVOTHYROXINE SODIUM 91544276131 Marylou Martinez RN FLORICAL TABS 60mg daily SOD FLUORIDE-CA CARBONATE TABS 53318764632 Marylou Martinez RN GLIPIZIDE 10 MG TABS take twice daily 0 05/09 GLIPIZIDE 19403131469 Angela A GABAPENTIN 600 MG TABS take 2 tablets twice daily GABAPENTIN 08599051844 Angela A FUROSEMIDE 40 MG TABS take once daily as needed FUROSEMIDE 04807976483 Angela A ITRACONAZOLE 100 MG CAPS 1 po qid 0 3 ITRACONAZOLE 66786721491 Angela A DALIRESP 500 MCG TABS 1 po qd 0 3 ROFLUMILAST 88709298254 Nagela A PROAIR HFA 108 (90 Base) MCG/ACT INHALATION AEROSOL SOLUTION 0 3 ALBUTEROL SULFATE 77620188174 Angela A SPIRIVA HANDIHALER 18 MCG CAPS 1 po qd 0 3 TIOTROPIUM BROMIDE MONOHYDRATE 44504158821 Angela A SYMBICORT 80-4.5 MCG/ACT AERO 0 3 BUDESONIDE-FORMO TEROL FUMARATE 91357511656 Angela A DOXYCYCLINE MONOHYDRATE 100 MG CAPS 0 3 DOXYCYCLINE MONOHYDRATE 11135342209 Angela A GLIPIZIDE 10 MG TABS 1 po bid 0 3 GLIPIZIDE 62179843644 Angela A ACTOPLUS MET 15-850 MG TABS 1 po bid 0 3 PIOGLITAZONE HCL-METFORMIN HCL 50265313559 Angela A OXYBUTYNIN CHLORIDE ER 10 MG [id number] 1 po qd 0 3 OXYBUTYNIN CHLORIDE 88944609764 Angela A DELTASONE 20 MG ORAL TABLET 0 3 PREDNISONE 94872336123 Angela A FUROSEMIDE 40 MG TABS 1 po bid 0 3 FUROSEMIDE 53502223099 Angela A METOPROLOL TARTRATE 25 MG TABS 1 po qd 0 3 METOPROLOL TARTRATE 46992529753 Angela A AZITHROMYCIN 250 MG TABS 0 3 AZITHROMYCIN 30988978159 Angela A ANTI-DIARRHEAL 2 MG CAPS 0 3 LOPERAMIDE HCL 23206988260 Angela A FUROSEMIDE 40 MG TABS 1 po qd 0 3 FUROSEMIDE 70096261330 Angela A GABAPENTIN 600 MG TABS 1 po qid 0 3 GABAPENTIN 58770533294 Angela A LISINOPRIL 20 MG TABS 1 po qd 0 3 LISINOPRIL 13233277492 Angela A [facility] OMEPRAZOLE 20.6 (20 Base) MG ORAL CAPSULE DELAYED RELEASE 1 po bid 0 3 OMEPRAZOLE MAGNESIUM 82981736789 Angela A FLUOXETINE HCL (PMDD) 20 MG ORAL CAPSULE 1 po tid 0 3 FLUOXETINE HCL (PMDD) 18089805991 Angela A MONTELUKAST SODIUM 10 MG TABS 1 po qd 0 3 MONTELUKAST SODIUM 40798062821 Angela A DALIRESP 500 MCG TABS 1 po qd 0 304 ROFLUMILAST 47882581833 Angela A MELOXICAM 15 MG TABS 1 po qd 0 3 MELOXICAM 93291899651 Angela A REQUIP 4 MG ORAL TABLET 1 po qd 0 3 ROPINIROLE HCL 89820398343 Angela A ITRACONAZOLE 100 MG CAPS 0 3 ITRACONAZOLE 35176191642 Angela A ACTOPLUS MET 15-850 MG TABS 1 po bid 0 304 PIOGLITAZONE HCL-METFORMIN HCL 59157329922 Angela A METOCLOPRAMIDE HCL 5 MG TABS 1 po qid 0 304 METOCLOPRAMIDE HCL 80391071858 Angela A OXYBUTYNIN CHLORIDE ER 10 MG [id number] 1 po qd 0 3 OXYBUTYNIN CHLORIDE 50758541806 Angela A PROAIR HFA 108 (90 Base) MCG/ACT INHALATION AEROSOL SOLUTION 0 304 ALBUTEROL SULFATE 17399531152 Angela A SPIRIVA HANDIHALER 18 MCG CAPS 1 po qd 0 304 TIOTROPIUM BROMIDE MONOHYDRATE 28808774997 Angela A SYMBICORT 80-4.5 MCG/ACT AERO 0 304 BUDESONIDE-FORMO TEROL FUMARATE 82269567106 Angela A METOPROLOL TARTRATE 25 MG TABS 1 po qd 0 304 METOPROLOL TARTRATE 24328661755 Angela A FUROSEMIDE 40 MG TABS 1 po qd 0 3/04 FUROSEMIDE 29880993437 Angela A GLIPIZIDE 10 MG TABS 1 po bid 0 3/04 GLIPIZIDE 94348345152 Angela A LEVO-T 50 MCG TABS 1 po qd 0 3/04 LEVOTHYROXINE SODIUM 24119279648 Angela A LEVO-T 50 MCG TABS 1 po qd 0 3/04 LEVOTHYROXINE SODIUM 82355405285 Stefany G GLIPIZIDE 10 MG TABS 1 po bid 0 3/04 GLIPIZIDE 42417789414 Stefany G FUROSEMIDE 40 MG TABS 1 po qd 0 304 FUROSEMIDE 75003013625 Stefany G METOPROLOL TARTRATE 25 MG TABS 1 po qd 0 3/04 METOPROLOL TARTRATE 22301018339 Stefany G SYMBICORT 80-4.5 MCG/ACT AERO 0 3/04 BUDESONIDE-FORMO TEROL FUMARATE 67934925243 Stefany G SPIRIVA HANDIHALER 18 MCG CAPS 1 po qd 10/19 TIOTROPIUM BROMIDE MONOHYDRATE 22075242167 Stefany Petersen PROAIR HFA 108 (90 Base) MCG/ACT INHALATION AEROSOL SOLUTION 0 3 ALBUTEROL SULFATE 50275763631 Stefany Petersen OXYBUTYNIN CHLORIDE ER 10 MG [id number] 1 po qd 11/16 OXYBUTYNIN CHLORIDE 53551687148 Stefany Petersen METOCLOPRAMIDE HCL 5 MG TABS 1 po qid 0 3 METOCLOPRAMIDE HCL 88170002458 Stefany Petersen ACTOPLUS MET 15-850 MG TABS 1 po bid 0 3 PIOGLITAZONE HCL-METFORMIN HCL 26741595736 Stefany Petersen ITRACONAZOLE 100 MG CAPS ITRACONAZOLE 53335981753 Stefany Petersen REQUIP 4 MG ORAL TABLET 1 po qd 0 07/06 ROPINIROLE HCL 58077148919 Stefany Petersen MELOXICAM 15 MG TABS 1 po qd 0 3 MELOXICAM 57375074215 Stefany Petersen DALIRESP 500 MCG TABS 1 po qd 12/05 ROFLUMILAST 48472367478 Stefany Petersen MONTELUKAST SODIUM 10 MG TABS 1 po qd 0 3 MONTELUKAST SODIUM 77252886950 Stefany Petersen FLUOXETINE HCL (PMDD) 20 MG ORAL CAPSULE 1 po tid 0 3 FLUOXETINE HCL (PMDD) 81874423846 Stefany Petersen [facility] OMEPRAZOLE 20.6 (20 Base) MG ORAL CAPSULE DELAYED RELEASE 1 po bid 0 3 OMEPRAZOLE MAGNESIUM 63168597114 Stefany Petersen LISINOPRIL 20 MG TABS 1 po qd 12/05 LISINOPRIL 48555464733 Stefany Petersen GABAPENTIN 600 MG TABS 1 po qid 0 3/04 GABAPENTIN 48788262872 Stefany Petersen FUROSEMIDE 40 MG TABS 1 po qd 0 3 FUROSEMIDE 68382759082 Stefany Petersen ANTI-DIARRHEAL 2 MG CAPS 0 3 LOPERAMIDE HCL 08734754474 Stefany Petersen AZITHROMYCIN 250 MG TABS 0 04/08 AZITHROMYCIN 32632893167 Stefany Petersen METOPROLOL TARTRATE 25 MG TABS 1 po qd 0 3 METOPROLOL TARTRATE 21620749382 Stefany Petersen FUROSEMIDE 40 MG TABS 1 po bid 0 3 FUROSEMIDE 60845204383 Stefany Petersen DELTASONE 20 MG ORAL TABLET 02/14 PREDNISONE 45142490489 Stefany Petersen OXYBUTYNIN CHLORIDE ER 10 MG [id number] 1 po qd 11/16 OXYBUTYNIN CHLORIDE 33496639529 Stefany Petersen ACTOPLUS MET 15-850 MG TABS 1 po bid 0 3 PIOGLITAZONE HCL-METFORMIN HCL 33969162707 Stefany Petersen GLIPIZIDE 10 MG TABS 1 po bid 0 3 GLIPIZIDE 50665851957 Stefany Petersen DOXYCYCLINE MONOHYDRATE 100 MG CAPS 0 3 DOXYCYCLINE MONOHYDRATE 71344742661 Stefany Petersen SYMBICORT 80-4.5 MCG/ACT AERO 0 3 BUDESONIDE-FORMO TEROL FUMARATE 55411323189 Stefany Petersen SPIRIVA HANDIHALER 18 MCG CAPS 1 po qd 10/19 TIOTROPIUM BROMIDE MONOHYDRATE 41788391396 Stefany Petersen PROAIR HFA 108 (90 Base) MCG/ACT INHALATION AEROSOL SOLUTION 0 3/ ALBUTEROL SULFATE 43559953413 Stefany Petersen DALIRESP 500 MCG TABS 1 po qd 12/05 ROFLUMILAST 60365677235 Stefany Petersen ITRACONAZOLE 100 MG CAPS 1 po qid 0/10 ITRACONAZOLE 85665006401 Stefany G Medications Administered No information available. [...] Procedures Code Procedure Name Date Entry Date 40546 Hepatitis C Atb: (ICD 10 Code: Z11.59) 20 23/04/29 CPT-78719 CMP CPT-05420 Itraconazole Level 4 CPT-91911 CMP CPT-96508 Itraconazole Level 8 CPT-72357 Itraconazole Level 6 CPT-76265 Itraconazole Level 6 CPT-39604 CMP [id number] CBC with Differential 2015 CPT-71128 Itraconazole Level 3 CPT-cdpcr C-Diff PCR Vital [...] Directive Description Start Date DURABLE POWER OF REMOTE ENCODING CENTER MANAGER LIVING WILL ON FILE
--- OUTSIDE RECORDS SUMMARY | 2025-08-28 17:30 | XMS_ITS | Referral Summary ---
Author Organization [employer] ([place], [place], [place], [place], [place]) Address [address] [place] [address] Care Team Providers Care Manager Etl Name Role Phone Unavailable Primary Care Provider [...] (02/01/2023): Added automatically from request for surgery [id number] Social History Tobacco Use Types Packs/Day Years [...] A1C 8.0 % 02/02/2023 11:14 AM EDT [facility] Comment: Hemoglobin A1C levels are related to mean glucose during the preceding 2-3 months. Less than 7% demonstrates glycemic control in diabetic patients. 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 May use BiPAP/CPAP Call TREE AND SHRUB WORKER * Full Code Date Activated Date Inactivated Comments 01/31/2023 8:28 PM 01/31/2023 9:46 PM Healthcare Agents on File Name Relationship Healthcare Agent Relationshi p Communication Rafael Fernandez Son First Alternate Healthcare Decision-Maker Cony Rebecca [id number] Second Alternate Healthcare Decision-Maker
--- OUTSIDE RECORDS SUMMARY | 2025-08-28 17:30 | XMS_ITS | Clinical Summary ---
Author Organization [facility] Address [address] [place] [address] Care Team Providers Care Home Health Care Case Manager Name Role Phone Provider, No Known Primary [...] (1 - 2023- season) 2025 Insurance [place]ID [place] [employer] MEDIC[place] ADVANTAGE Care Teams Home Health Care Case Manager Relationship Specialty Start Date End Date Provider, No Known [facility] [place] [address] PCP - General 12/10/15
--- OUTSIDE RECORDS SUMMARY | 2025-08-28 17:30 | XMS_ITS | Data Portability ---
Author Organization [employer] [place] [facility] Address [address] [place] [address] Assessment No assessment recorded. Plan of Treatment [...] 2021 [facility], [address] [place], [address], 14:25:47 Patient TargetsNo targets recorded. Patient InstructionsNo instructions recorded. Reason for Referral None Reported. Results Created Date Observation Date Name Description Value Unit Range Abnormal Flag Note LastModifiedBy Organization Detail LastModifiedTime 09/09/20 22 04/03/2021 CULTU RE, URINE , ROUTI NE culture, urine, routine SEE NOTE abnormal CULTU RE, URINE , ROUTI NE Micro Numbe r: [id number] Test Statu s: Final Speci men [...] CLIEN T SERVI JUDSON. PHONE ROLDAN R: 863.6 97.83 78 Not Available [facility] [employer] [facility] [place], [id number] 09/09/2022 11:03:00 09/09/20 22 04/03/2021 URINA LYSIS REFLE X color TNP normal TEST NOT PERFO RMED Impro per speci men submi tted. If indic ated, pleas e re-rdz bmit in a [facility] sheila yello w-top urine tube. Not Available [employer] [facility] [place] Wood, 09/09/2022 11:02:58 09/09/20 22 [...] NUMBE R: 866.6 97.83 78 Not Available [employer] [place], 09/09/2022 10:47:00 09/09/20 22 04/14/2022 CBC (INCL UDES DIFF/ PLT) white blood cell count 8.1 thous and/u L 3.8-10 .8 normal Not Available [employer] [facility] [place], JORDAN, 09/09/2022 10:46:58 09/09/20 22 04/14/2022 CBC (INCL UDES DIFF/ PLT) red blood cell count 4.03 kalpesh on/uL 3.80-5 .10 normal Not Available [employer] [facility] [place], JORDAN, 09/09/2022 10:46:58 09/09/20 22 04/14/2022 CBC (INCL UDES DIFF/ PLT) hemoglobin 11.3 g/dL 11.7-1 5.5 low Not Available [employer] [facility] [place], JORDAN, 09/09/2022 10:46:58 09/09/20 22 04/14/2022 CBC (INCL UDES DIFF/ PLT) hematocrit 34.5 % 35.0-4 5.0 low Not Available [facility] [place], [id number] 09/09/2022 10:46:58 09/09/20 22 04/14/2022 CBC (INCL UDES DIFF/ PLT) MCV 85.6 fL 80.0-1 00.0 normal Not Available [facility] [employer] [place] Wood, 09/09/2022 10:46:58 09/09/20 22 04/14/2022 CBC (INCL UDES DIFF/ PLT) MCH 28.0 pg 27.0-3 3.0 normal Not Available [facility] [place], [id number] 09/09/2022 10:46:58 09/09/20 22 04/14/2022 CBC (INCL UDES DIFF/ PLT) MCHC 32.8 g/dL 32.0-3 6.0 normal Not Available [facility] [place] [place], 09/09/2022 10:46:58 09/09/20 22 04/14/2022 CBC (INCL UDES DIFF/ PLT) RDW 14.3 % 11.0-1 5.0 normal Not Available [facility] [place] [place], 09/09/2022 10:46:58 09/09/2004/14/2022 CBC (INCL UDES DIFF/ PLT) platelet count 185 thous and/u L 140-40 0 normal Not Available [facility] [place], [id number] 09/09/2022 10:46:58 09/09/20 22 04/14/2022 CBC (INCL UDES DIFF/ PLT) MPV 11.0 fL 7.5-12 .5 normal Not Available [facility] [place], 09/09/2022 10:46:58 09/09/20 22 04/14/2022 CBC (INCL UDES DIFF/ PLT) absolute neutrophils 4884 cells /uL 1500-7 800 normal Not Available [facility] [place], 09/09/2022 10:46:58 09/09/20 22 04/14/2022 CBC (INCL UDES DIFF/ PLT) absolute lymphocytes 2398 cells /uL 850-39 00 normal Not Available [facility] [place], [id number] 09/09/2022 10:46:58 09/09/20 22 04/14/2022 CBC (INCL UDES DIFF/ PLT) absolute monocytes 721 cells /uL 200-95 0 normal Not Available [facility] [place], [id number] 09/09/2022 10:46:58 09/09/20 22 04/14/2022 CBC (INCL UDES DIFF/ PLT) absolute eosinophils 81 cells /uL 15-500 normal Not Available [facility] [place], [id number] 09/09/2022 10:46:58 09/09/20 22 04/14/2022 CBC (INCL UDES DIFF/ PLT) absolute basophils 16 cells /uL 0-200 normal Not Available [facility] [place], [id number] 09/09/2022 10:46:58 09/09/20 22 04/14/2022 CBC (INCL UDES DIFF/ PLT) neutrophils 60.3 % normal Not Available [facility] [place], [id number] 09/09/2022 10:46:58 09/09/20 22 04/14/2022 CBC (INCL UDES DIFF/ PLT) lymphocytes 29.6 % normal Not Available [facility] [place], [id number] 09/09/2022 10:46:58 09/09/20 22 04/14/2022 CBC (INCL UDES DIFF/ PLT) monocytes 8.9 % normal Not Available [facility] [place], [id number] 09/09/2022 10:46:58 09/09/20 22 04/14/2022 CBC (INCL UDES DIFF/ PLT) eosinophils 1.0 % normal Not Available [facility] [place], [id number] 09/09/2022 10:46:58 09/09/20 22 04/14/2022 CBC (INCL UDES DIFF/ PLT) basophils 0.2 % normal Not Available [facility] [place], [id number] 09/09/2022 10:46:58 09/09/20 22 04/14/2022 COMPR EHENS ANALI METAB OLIC PANEL glucose 119 mg/dL 65-99 high Fasti ng refer ence inter jensen For someo ne witho ut known diabe gregorio, a gluco se value betwe en 100 and 125 mg/dL is consi stent with predi abete s and shoul d be confi rmed with a follo w-up test. Not Available [employer] [place], [id number] 09/09/2022 10:46:56 09/09/20 22 04/14/2022 COMPR EHENS ANALI METAB OLIC PANEL urea nitrogen (BUN) 25 mg/dL 7-25 normal Not Available [employer] [place], [address] 09/09/2022 10:46:56 09/09/20 22 04/14/2022 COMPR EHENS ANALI METAB OLIC PANEL creatinine 1.86 mg/dL 0.60-0 .93 high For patie nts >49 years of age, the refer ence limit for Creat inine is appro ximat octavio 13% highe r for peopl e ident ified as Afric an-Am rohini n. Not Available [employer] [place], [id number] 09/09/2022 10:46:56 09/09/20 22 04/14/2022 COMPR EHENS ANALI METAB OLIC PANEL eGFR non-afr. liberian 26 mL/mi n/1.7 3m2 > or = 60 low Not Available [employer] [place], [address] 09/09/2022 10:46:56 09/09/20 22 04/14/2022 COMPR EHENS ANALI METAB OLIC PANEL eGFR 31 mL/mi n/1.7 3m2 > or = 60 low Not Available [employer] [place], [id number] 09/09/2022 10:46:56 09/09/20 22 04/14/2022 COMPR EHENS ANALI METAB OLIC PANEL BUN/creatini ne ratio 13 (calc ) 6-22 normal Not Available [employer] [place], [address] 09/09/2022 10:46:56 09/09/20 22 04/14/2022 COMPR EHENS ANALI METAB OLIC PANEL sodium 131 mmol/ L 135-14 6 low Not Available [facility] [place], [id number] 09/09/2022 10:46:56 09/09/20 22 04/14/2022 COMPR EHENS ANALI METAB OLIC PANEL potassium 4.7 mmol/ L 3.5-5. 3 normal Not Available [facility] [place], [address] 09/09/2022 10:46:56 09/09/20 22 04/14/2022 COMPR EHENS ANALI METAB OLIC PANEL chloride 94 mmol/ L 98-110 low Not Available [facility] [employer] [place], [address] 09/09/2022 10:46:56 09/09/20 22 04/14/2022 COMPR EHENS ANALI METAB OLIC PANEL carbon dioxide 30 mmol/ L 20-32 normal Not Available [facility] [place], [address] 09/09/2022 10:46:56 09/09/20 22 04/14/2022 COMPR EHENS ANALI METAB OLIC PANEL calcium 9.4 mg/dL 8.6-10 .4 normal Not Available [facility] [place], [address] 09/09/2022 10:46:56 09/09/20 22 04/14/2022 COMPR EHENS ANALI METAB OLIC PANEL protein, total 6.6 g/dL 6.1-8. 1 normal Not Available [facility] [place], [address] 09/09/2022 10:46:56 09/09/20 22 04/14/2022 COMPR EHENS ANALI METAB OLIC PANEL albumin 3.7 g/dL 3.6-5. 1 normal Not Available [facility] [place], [address] 09/09/2022 10:46:56 09/09/20 22 04/14/2022 COMPR EHENS ANALI METAB OLIC PANEL globulin 2.9 g/dL_ (calc ) 1.9-3. 7 normal Not Available [facility] [place], [address] 09/09/2022 10:46:56 09/09/20 22 04/14/2022 COMPR EHENS ANALI METAB OLIC PANEL albumin/glob ulin ratio 1.3 (calc ) 1.0-2. 5 normal Not Available [facility] [employer] [place], [address] 09/09/2022 10:46:56 09/09/20 22 04/14/2022 COMPR EHENS AANLI METAB OLIC PANEL bilirubin, total 0.5 mg/dL 0.2-1. 2 normal Not Available [facility] [employer] [place], [address] 09/09/2022 10:46:56 09/09/20 22 04/14/2022 COMPR EHENS ANALI METAB OLIC PANEL alkaline phosphatase 152 U/L 37-153 normal Not Available [facility] [employer] [place], [address] 09/09/2022 10:46:56 09/09/20 22 04/14/2022 COMPR EHENS ANALI METAB OLIC PANEL AST 13 U/L 10-35 normal Not Available [employer] [place], [address] 09/09/2022 10:46:56 09/09/20 22 04/14/2022 COMPR EHENS ANALI METAB OLIC PANEL ALT 8 U/L 6-29 normal Not Available [employer] [place], [id number] 09/09/2022 10:46:56 Result Notes None recorded. Problems Name Problem SNOMED Code Status Onset Date Resolution Date Notes Provider Name and Address Organization Details Recorded Time Secondar y diabetes mellitus 1781363 Active 2018 Problem Code: E08.41; Problem Code Type: ICD-10; Not Available [facility] 22:07:40 Mixed hyperlip idemia 083645852 Active 2018 Problem Code: E78.2; Problem Code Type: ICD-10; Not Available [facility] 22:07:40 Mild recurren t major depressi on 51521296 Active 2018 Problem Code: F33.0; Problem Code Type: ICD-10; Not Available [facility] 22:07:41 Hyperten sive disorder 59600271 Active 2018 Problem Code: I10; Problem Code Type: ICD-10; Not Available [facility] 22:07:41 Acute exacerba tion of chronic obstruct anali pulmonar y disease 601847563 Active 2018 Problem Code: J44.1; Problem Code Type: ICD-10; Not Available [facility] 2 22:07:42 Cirrhosi s of liver 05703547 Completed 201804/06/2021 Problem Code: K74.60; Problem Code Type: ICD-10; Not Available [facility] 2 22:07:42 Cyst of ovary 28401213 Completed 201808/11/2019 Problem Code: N83.201; Problem Code Type: ICD-10; Not Available [facility] 2 22:07:44 Chest pain 60555449 Completed 201808/11/2019 Problem Code: R07.89; Problem Code Type: ICD-10; Not Available [facility] 2 22:07:45 Pain in right knee Completed 201808/11/2019 Problem Code: M25.561; Problem Code Type: ICD-10; Not Available [facility] 2 22:07:43 Low back pain 607982003 Active 2018 Problem Code: M54.5; Problem Code Type: ICD-10; Not Available [facility] 2 22:07:43 Gastroes ophageal reflux disease without esophagi tis 984512180 Active 2018 Not Available [facility] 2 22:07:51 Pain in right knee Completed 201808/11/2019 Problem Code: M25.561; Problem Code Type: ICD-10; Not Available [facility] 2 22:07:43 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 521536810 Active 2018 Problem Code: E11.41; Problem Code Type: ICD-10; Not Available [facility] 2 22:07:40 Acute bronchit is 89931690 Completed 201808/11/2019 Problem Code: J20.9; Problem Code Type: ICD-10; Not Available [facility] 2 22:07:41 Cough 10972498 Completed 201808/11/2019 Problem Code: R05; Problem Code Type: ICD-10; Not Available [facility] 2 22:07:45 Body mass index 40+ - severely obese 544375780 Active 2018 Not Available [facility] 2 22:07:51 Current drug user 375926758 Completed 201808/11/2019 Problem Code: Z79.899; Problem Code Type: ICD-10; Not Available [facility] 2 22:07:53 Divertic ulitis of large intestin e without complica tion 321195285 Active 2018 Problem Code: K57.32; Problem Code Type: ICD-10; Not Available [facility] 2 22:07:42 Dysuria 33620751 Completed 201801/05/2021 Problem Code: R30.0; Problem Code Type: ICD-10; Not Available [facility] 2 22:07:46 Dysuria 95509226 Completed 201801/05/2021 Problem Code: R30.0; Problem Code Type: ICD-10; Not Available [facility] 2 22:07:46 Dehydrat ion 85785403 Active 2019 Problem Code: E86.0; Problem Code Type: ICD-10; Not Available [facility] 2 22:07:40 Bronchop neumonia 518221785 Active 2019 Problem Code: J18.0; Problem Code Type: ICD-10; Not Available [facility] 2 22:07:41 Pyrexia of unknown origin 3727061 Completed 201901/05/2021 Problem Code: R50.9; Problem Code Type: ICD-10; Not Available [facility] 2 22:07:46 Hypomagn esemia 022032591 Completed 201901/05/2021 Problem Code: E83.42; Problem Code Type: ICD-10; Not Available [facility] 2 22:07:40 Tobacco dependen ce caused by cigarett es 22492628063 430637 Active 2019 Problem Code: F17.210; Problem Code Type: ICD-10; Not Available [facility] 2 22:07:40 Chronic obstruct anali pulmonar y disease with acute lower respirat ory infectio n 209735487 Active 2019 Problem Code: J44.0; Problem Code Type: ICD-10; Not Available [facility] 2 22:07:42 Asthenia 89246797 Active 2019 Problem Code: R53.1; Problem Code Type: ICD-10; Not Available [facility] 2 22:07:46 Fall on same level from slipping , tripping or stumblin g Active 2019 Not Available [facility] 22:07:48 Abnormal finding on evaluati on procedur e 778151613 Active 2019 Not Available [facility] 22:07:49 Chronic obstruct anali pulmonar y disease 19725599 Active 2019 Problem Code: J44.9; Problem Code Type: ICD-10; Not Available [facility] 2 22:07:42 Periodon kevin disease 2140840 Completed 201904/06/2021 Problem Code: K05.6; Problem Code Type: ICD-10; Not Available [facility] 2 22:07:42 Cataract 655765752 Active 2019 Not Available [facility] 2 22:07:41 Generali zed osteoart hritis 027202286 Active 2019 Problem Code: M15.9; Problem Code Type: ICD-10; Not Available [facility] 2 22:07:43 On examinat ion - gait Active 2019 Not Available [facility] 22:07:45 Foot joint - soft tissue swelling 542790338 Completed 201901/05/2021 Not Available [facility] 22:07:43 Ankle joint effusion 487485191 Active 2019 Not Available [facility] 22:07:43 Polyalgi a 458268682 Completed 201901/05/2021 Problem Code: M79.89; Problem Code Type: ICD-10; Not Available [facility] 2 22:07:44 Localize d edema 544839234 Completed 201901/05/2021 Problem Code: R60.0; Problem Code Type: ICD-10; Not Available [facility] 22:07:47 Dysuria 84272196 Active 2019 Problem Code: R30.0; Problem Code Type: ICD-10; Not Available [facility] 22:07:46 Influenz a vaccine needed 26737437232 Active 2019 Problem Code: Z23; Problem Code Type: ICD-10; Not Available [facility] 22:07:49 Obstruct anali sleep apnea syndrome 51607018 Active 2019 Problem Code: G47.33; Problem Code Type: ICD-10; Not Available [facility] 22:07:41 Pyrexia of unknown origin 1388850 Active 2019 Problem Code: R50.9; Problem Code Type: ICD-10; Not Available [facility] 22:07:46 Chronic obstruct anali pulmonar y disease with acute lower respirat ory infectio n 473071666 Completed 201901/05/2021 Problem Code: J44.0; Problem Code Type: ICD-10; Not Available [facility] 22:07:51 Urinary tract infectio us disease 01223565 Active 2020 Problem Code: N39.0; Problem Code Type: ICD-10; Not Available [facility] 22:07:54 Vitamin D deficien cy 00612530 Active 2020 Problem Code: E55.9; Problem Code Type: ICD-10; Not Available [facility] 2 22:07:40 Current drug user 387802296 Active 2020 Problem Code: Z79.899; Problem Code Type: ICD-10; Not Available [facility] 22:07:52 Polyalgi a 941759445 Active 2020 Problem Code: M79.89; Problem Code Type: ICD-10; Not Available [facility] 2 22:07:44 Eruption 303866576 Active 2020 Problem Code: R21; Problem Code Type: ICD-10; Not Available [facility] 22:07:45 Localize d edema 425660332 Active 2020 Problem Code: R60.0; Problem Code Type: ICD-10; Not Available [facility] 22:07:47 COVID-19 540566535 Active 2020 Problem Code: U07.1; Problem Code Type: ICD-10; Not Available [facility] 22:07:48 Influenz a vaccine needed 66157138542 06 Completed 202002/01/2022 Problem Code: Z23; Problem Code Type: ICD-10; Not Available [facility] 22:07:50 Neoplasm of uncertai n behavior of skin 78111195 Active 2021 Problem Code: D48.5; Problem Code Type: ICD-10; Not Available [facility] 22:07:40 Ganglion of wrist 249658158 Active 2021 Problem Code: M67.432; Problem Code Type: ICD-10; Not Available [facility] 22:07:44 Snoring 33288084 Active 2021 Problem Code: R06.83; Problem Code Type: ICD-10; Not Available [facility] 22:07:55 General examinat ion of patient Active 2021 Not Available [facility] 22:07:48 Fall from chair Active 2021 Problem Code: W07.XXXA ; Problem Code Type: ICD-10; Not Available [facility] 22:07:57 Low blood pressure 90511627 Active 2021 Problem Code: I95.9; Problem Code Type: ICD-10; Not Available [facility] 22:07:41 Chronic kidney disease stage 3B 599974641 Active 2021 Problem Code: N18.32; Problem Code Type: ICD-10; Not Available [facility] 22:07:54 Notes:*Problem Name: Patient 's other noncompliance [...] 12/04/19 19 hernia repair completed Not Available [facility] 2021 22:56:15 12/04/19 19 hysterectomy completed Not Available [facility] 022 22:56:15 12/04/19 19 ligation of bilateral fallopian tubes completed Not Available [facility] 06/14/2022 22:56:15 Imaging Results None recorded. Procedure Notes None recorded. Medical Equipment None Reported. Allergies Allergen ID Allergen Name Allergen Category Reaction Reaction Severity Criticality Documentation Date Start Date Code Code System Note Provider Name and Address Organization Details Recorded Time 59703 Product containin g penicilli n (product) medicatio n Not available Not available Not available 06/14/2022 32717 8001 SNOMED Regina stoddard [facility] [employer] 3 10:02:07 34838 Tylox medicatio n Not available Not available Not available 06/14/2022 48723 5 RxNorm Not Available [facility] 2 22:56:11 53905 walnut allergeni c extract food Not available Not available Not available 06/14/2022 08482 0 RxNorm Not Available [facility] 2 22:56:11 23741 acetamino phen / oxycodone medicatio n Not available Not available Not available 06/14/2022 05677 3 RxNorm Not Available [facility] 2 22:56:11 92084 Januvia medicatio n Not available Not available Not available 06/14/2022 77816 6 RxNorm Not Available [facility] 2 22:56:11 14511 oxycodone medicatio n Not available Not available Not available 06/14/2022 7804 RxNorm Not Available [facility] 2 22:56:12 Medications Name Sig Start [...] Vitals Date Recorded Body weight Oxygen saturation Heart rate Systolic And Diastolic Provider Name and Address Organization Details Last Updated DateTime 07/19/2022 646647.94 g 97 % 74 /min 116/63 mm[Hg] TILA ESPOSITO [employer]. 07/19/2022 14:01:06 Social History Question Answer Notes LastModified by Organizat [employer] Details LastModified Time Tobacco Smoking Status Current Every Day Smoker Regina William stoddard, [employer]. 11/22/2022 10:02:43 What Is Your Current Pack Years? [email or web address] Information not available 07/19/2022 How Much Tobacco Do You Smoke? 2 PPD [email or web address] Information not available 07/19/2022 Sex: Female Functional Status Question Answer Note LastModified by Organizat [employer] Details LastModified Time Do you use any illicit or recreational drugs? No Information not available 07/19/2022 Mental Status None [...] available 11/22 10:02:32 Medical History Condition Response COPD Y Obesity Y Kidney Disease Y Breast Cancer Y Diabetes Y Hypertension Y Gynecological HistoryNo gynecological history recorded. Obstetrics History GPAL:G 0 P 0 0 0 0 Immunizations Vaccine Type Date Status Note Provider Nam e and Address Organization Details Recorded Time COVID-19 vaccine, vector-nr, rS-ChAdOx1, PF, 0.5 mL 1 completed Not Available [facility] 06/14/2022 23:39:31 Influenza, split virus, quadrivalent, PF 1 completed Not Available [facility] 06/14/2022 23:39:31 Influenza, split virus, trivalent, preservative 9 completed Not Available [facility] 06/14/2022 23:39:31 Influenza, split virus, quadrivalent, preservative 0 completed Not Available [facility] 06/14/2022 23:39:31 Past Encounters Encounter ID Performer Location Encounter Start Date Encounter Closed Date Diagnosis/Indication Diagnosis SNOMED-CT Code Diagnosis ICD10 Code Diagnosis IMO Codes Diagnosis Note [id number] Anya Munson [place] [phone] 07/19/2022 13:38:04 07/19/2022 15:12:20 Pain of right hip joint 7961971583 22187 M25.551 Pain of le ft hip joint 3248497586 41779 M25.552 rest, alternate Heat/ICE, f/u if worsen, will call with xray results Pain of le ft knee joint 2290114281 87013 M25.562 Health Concerns Section Related Observation LastModified by Organization Detai ls LastModified Time None Recorded Concern Status LastModified by Organization Details LastModified Time None Recorded Advance Directives Directive None Recorded Payers Insurance Date Sequence Insurance Name Policy Number Policy Osborne Covered Member ID Osborne Member ID Guarantor Name 07/30/2022 1 [employer] (MEDICARE REPLACEMENT/A DVANTAGE - PPO) Ambar C Fernandez [id number] Ambar Fernandez 11/19/2022 MEDICARE [place]: [id number] Guided Interventions - [facility] Ambar C Fernandez [id number] Ambar Fernandez 08/07/2022 2 MEDICAID-[facility] - FFS/[facility] Ambar Fernandez [id number] Ambar Fernandez Notes Date Note Type Note [...] in the HPI Anya Munson APRN [address] [facility], [place], [address], [facility] [employer] 07/19/2022 14:33:54 OBGyn Episode No OBEpisode recorded.
--- OUTSIDE RECORDS SUMMARY | 2025-08-28 17:30 | XMS_ITS | Clinical Summary ---
Author Organization [employer] ([place], [place], [place], [place], [place]) Address [address] [place] [address] Care Team Providers Care Support Clerk Name Role Phone Unavailable Primary Care Provider [...] (02/01/2023): Added automatically from request for surgery [id number] Social History Tobacco Use Types Packs/Day Years [...] Date Garcia rded Speak language other than Maori at home Not on file 10/27/2023 Want [...] A1C 8.0 % 02/02/2023 11:14 AM EDT [facility] Comment: Hemoglobin A1C levels are related to mean glucose during the preceding 2-3 months. Less than 7% demonstrates glycemic control in diabetic patients. Hemoglobin AlC % Suggested Diagnosis > or = 6.5 Diabetic 5.7 - 6.4 Prediabetic <5.7 Non-diabetic eAVG Glucose 182.9 mg/dL 02/02/2023 11:14 AM EDT [facility] Blood Venipuncture / Unknown 02/02/2023 3:00 AM EDT 02/02/2023 3:05 AM EDT Marylou Werner MD LAB BLOOD ORDERABLES Final R esult [facility] [address] [phone] from Last 3 Months or Most Recently Relevant to Health Maintenance Insurance H[employer] MEDICARE PPO MEDICAID OF [place] Advance Directives For more information, please contact: [phone] Documents on File Type Date Recorded Patient Practice Specialist Expl anation Power of Lofter 01/31/2023 * DNR - Limited Additional Intervention (Latest Code Status on File) Date Activated Date Inactivated Comments 01/31/2023 9:46 PM 02/06/2023 5:29 PM If no pulse: NO intervention If has pulse: NO Intubation. May use BiPAP/CPAP Call PLATEMAN * Full Code Date Activated Date Inactivated Comments 01/31/2023 8:28 PM 01/31/2023 9:46 PM Healthcare Agents on File Name Relationship Healthcare Agent Relationshi p Communication Rafael Fernandez Son First Alternate Healthcare Decision-Maker Cony Rebecca [id number] Second Alternate Healthcare Decision-Maker
[2025-08-28 17:54] LABS: Amorphous Sediment,Urine Trace /lpf; Squamous Epithelial Cell,Urine Occasional #/hpf (0-5)
== END 2025-08-28 23:59 | disposition home or self-care (01) ==
LOC: LAB.DROPOF 16:42
PROVIDERS: PCP Family Medicine; Visit Provider Family Medicine
DX: R30.0 Dysuria (principal)
CPT/HCPCS: 81001; 87086